=== PATIENT | male | born 1955 | race Caucasian/White ===

== ENCOUNTER 2023-08-20 14:25 | Outpatient (AMB) | payer OTHER, SELFPAY ==
--- NOTE | 2023-08-20 14:40 | A.OFFVIS_ITS ---
Intake Vital Signs 3 08/20/23 14:43 Height 5 ft 10 in Weight 271 lb BMI 38.9 BP 142/76 H Blood Pressure Location Rt brachial Position Sitting Pulse 87 Pulse Source Pulse Oximeter Pulse Oximetry (%) 95 Oxygen Delivery Method Room Air Intake Visit Reasons: COPD Prosthetic Technician Required: No Assistant To The Director: Assistant To The Director offered & declined Accompanied by: Self / Same As Patient Allergies doxycycline Allergy (Severe, Verified 08/20/23 15:11) Rash Penicillins Allergy (Severe, Verified 08/20/23 15:11) rash bee stings Allergy (Severe, Uncoded 08/20/23 15:11) Anaphylaxis Medication List - Last Reconciled 08/20/23 by Nuvia Hart LPN albuterol sulfate 0.63 mg inhalation Q6H amlodipine 10 mg PO DAILY cetirizine (All Day Allergy (cetirizine)) 10 mg PO DAILY PRN elderberry fruit mg PO DAILY fluticasone propion-salmeterol 100-50 mcg/dose 1 inh inhalation Q12H levothyroxine 150 mcg PO DAILY omeprazole 20 mg PO DAILY HPI COPD 2 HPI0 Details Jim is a pleasant 68 year old male, former smoker with 50 pack year history, quit 4-5 years ago, with underlying COPD, PARKER on CPAP, HTN, SVT s/p ablation 2020, and h/o provoked DVT on ASA. Patient reports progressively worsening dyspnea on moderate exertion with associated wheezing. He has been suboptimally controlled on Duoneb, 2-3 times per day and was started on Wixela a few weeks ago after recent exacerbation. He was also placed on antibiotics and prednisone x 5 days. He notes complete resolution of symptoms and improvements in dyspnea/wheezing after initiation of Wixela. He had a chest CT in March, full report below. Referral states that he had PFTs performed in 2019, report not available. He denies any occupational exposures, although was in the for a short period of time. He reports seasonal allergies which he uses zyrtec with good effect. He has a cat. He reports mother with history of respiratory conditions, otherwise no pertinent family history. [facility] Social History (Updated 08/20/23 @ 15:13 by Nuvia Hart LPN) Patient Tobacco Use Status: Former Tobacco user Tobacco use type: Cigarette Cigarette Packs Per Day: 1 Years Smoked: 50 quit 2019 Review of Systems Const Denies chills, Denies excessive sweating, Denies fever(s), Denies headache(s) and Denies night sweats Eyes Denies dry eyes, Denies irritation and Denies itchy eyes ENT Reports Normal hearing present, Denies headache(s), Denies nasal congestion, Denies nasal discharge, Denies post nasal drip and Denies sore throat Card Denies chest pain, Denies chest pain at rest, Denies chest pain with activity, Denies claudication, Reports dyspnea on exertion, Denies orthopnea and Denies paroxysmal nocturnal dyspnea Resp Denies chest congestion, Denies excessive phlegm production, Denies pain on inspiration, Denies pain with cough, Reports dyspnea on exertion and Denies stridor Musc Denies myalgias Neuro Reports Normal hearing present and Denies headache(s) Endo Denies excessive sweating Marcio/Lymph Denies lymphadenopathy Aller/Immun Denies itchy eyes and Denies seasonal rhinorrhea Physical Exam Vital Signs: Last Vital Signs Pulse 87 08/20/23 14:43 BP 142/76 H 08/20/23 14:43 Pulse Ox 95 08/20/23 14:43 Oxygen Delivery Method Room Air 08/20/23 14:43 BMI result Body Mass Index 38.9 Const General: cooperative, healthy appearing, comfortable, no acute distress, well developed and alert Nutritional Appearance: obese Orientation/consciousness: patient oriented x3 Limitations: no limitations HEENT Head: Yes normal to inspection, Yes normocephalic and Yes atraumatic Ears: hearing grossly normal bilaterally and external ears normal Eyes General: appearance normal, both eyes and all related structures Eyelids: Yes eyelids normal Sclerae: sclerae normal EOM: EOMs intact bilaterally Neck Neck: Yes normal visual inspection and Yes no lymphadenopathy Lymphatic: no lymphadenopathy noted Chest Chest palpation & inspection: normal inspection of the chest Resp Effort & Inspection: normal respiratory effort, able to speak in complete sentences, no audible wheezes, no cough, no stridor, not tachypneic, no tripod positioning and no use of accessory muscles Auscultation: clear to auscultation bilaterally Cardio Jugular venous distension: no JVD Rate: regular rate Rhythm: regular rhythm Skin Other: warm, dry General skin exam: no rashes or lesions noted Neuro General: patient oriented x3 Cranial nerves: Yes Normal hearing present Cognition (Neuro): normal cognition Gait exam (Neuro): Normal gait present Extrem General: Yes normal to inspection and Yes capillary refill normal Psych Appearance: grossly normal and well kempt Speech and movement: Normal speech and movement present and Clear speech present Affect: normal affect Attitude: cooperative Thought process: Normal thought process present Thought content: Normal thought content present Insight: Good insight present (Psych) Judgement: Good judgement present (Psych) Results Reviewed Results Reviewed: Assessment & Plan Assessment & Plan (1) COPD (chronic obstructive pulmonary disease): Code(s): J44.9 - Chronic obstructive pulmonary disease, unspecified (2) Personal history of tobacco use: Code(s): Z87.891 - Personal history of nicotine dependence Plan Jim's symptoms are likely related to COPD, unclear severity. He reports recent PFT was performed this year, although his referral notes his last was from 2019. Will attempt to obtain, if not recent, then send for updated PFT. Advised to continue on Wixela, as this was recently initiated and he reports some improvements. If not significantly changed, will consider Trelegy. Reviewed inhaler technique and importance of good oral hygiene. Reviewed chest CT report from March 2023 which stated no concerning pulmonary nodules. Will send for chest CT in one year. All questions were answered and patient is in agreement of plan. Will follow up after PFT to review results and response to Wixela, or sooner if needed. Orders: Orders 2 CT chest wo IV con 8 Months J44.9 - Chronic obstructive pulmonary disease, unspecified, Z87.891 - Personal history of nicotine dependence Coding Level of Care Code New Pt Level 4 (61457) Diagnoses COPD (chronic obstructive pulmonary disease) J44.9 Personal history of tobacco use Z87.891
[2023-08-20 14:43] VITALS: BP 142/76; PULSE 87; O2SAT 95; BMI 38.9
== END 2023-08-20 15:39 | disposition home or self-care (01) ==
PROVIDERS: PCP Nurse Practitioner Family; Referring Provider Nurse Practitioner Family; Visit Provider Nurse Practitioner Family
DX: J44.9 Chronic obstructive pulmonary disease, unspecified (principal); Z87.891 Personal history of nicotine dependence
CPT/HCPCS: 99204

== ENCOUNTER → 2023-08-20 14:25 | Outpatient (BNVA) | payer OTHER, SELFPAY | PROVIDERS: PCP Nurse Practitioner Family; Referring Provider Nurse Practitioner Family; Visit Provider Nurse Practitioner Family | DX: J44.9 Chronic obstructive pulmonary disease, unspecified (principal); Z87.891 Personal history of nicotine dependence | CPT/HCPCS: 99202 ==

== ENCOUNTER → 2023-10-08 14:13 | Outpatient (BNVA) | payer OTHER, SELFPAY | PROVIDERS: PCP Nurse Practitioner Family; Visit Provider Nurse Practitioner Family | DX: J44.9 Chronic obstructive pulmonary disease, unspecified (principal); Z87.891 Personal history of nicotine dependence | CPT/HCPCS: 94618; 99212 ==

== ENCOUNTER 2023-10-08 14:18 | Outpatient (AMB) | payer OTHER, SELFPAY ==
--- NOTE | 2023-10-08 10:01 | MHC.OFFVIS ---
Intake Vital Signs 10/08/23 14:22 Height 5 ft 10 in Weight 266 lb BMI 38.2 BP 132/68 Blood Pressure Location Rt brachial Position Sitting Respiration 14 Pulse Source Pulse Oximeter Pulse Oximetry (%) 92 Oxygen Delivery Method Room Air Intake Visit Reasons: COPD: 7 week f/u Allergies doxycycline Allergy (Severe, Verified 10/08/23 14:26) Rash Penicillins Allergy (Severe, Verified 10/08/23 14:26) rash bee stings Allergy (Severe, Uncoded 10/08/23 14:26) Anaphylaxis Medication List - Last Reconciled 10/08/23 by Katelin Jang, EXPERIMENTAL TECHNICIAN albuterol sulfate 0.63 mg inhalation Q6H amlodipine 10 mg PO DAILY cetirizine (All Day Allergy (cetirizine)) 10 mg PO DAILY PRN elderberry fruit mg PO DAILY fluticasone propion-salmeterol 100-50 mcg/dose 1 inh inhalation Q12H levothyroxine 150 mcg PO DAILY omeprazole 20 mg PO DAILY HPI COPD: 7 week f/u HPI Details Jim is a pleasant 68 year old male, former smoker with 50 pack year history, quit 4-5 years ago, with underlying COPD, PARKER on CPAP, HTN, SVT s/p ablation 2020, and h/o provoked DVT on ASA. Patient reports progressively worsening dyspnea on moderate exertion with associated wheezing. He has been suboptimally controlled on albuterol neb, 2-3 times per day and was started on Wixela shortly before the last visit. He reports progressively worsening dyspnea with associated wheezing and dry cough. Of note, he does report orthopnea and BLE. Denies PND. He was previously followed by cardiology, last echo 2020 however was reportedly told he no longer needs to be followed. [facility] Social History (Updated 08/20/23 @ 15:13 by Nuvia Hart LPN) Patient Tobacco Use Status: Former Tobacco user Tobacco use type: Cigarette Cigarette Packs Per Day: 1 Years Smoked: 50 quit 2019 Review of Systems Const Denies chills, Denies excessive sweating, Denies fever(s), Denies headache(s) and Denies night sweats Eyes Denies dry eyes, Denies irritation and Denies itchy eyes ENT Reports Normal hearing present and Denies headache(s) Card Denies chest pain, Denies chest pain at rest, Denies chest pain with activity, Denies claudication, Reports dyspnea on exertion, Denies orthopnea and Denies paroxysmal nocturnal dyspnea Resp Denies chest congestion, Denies excessive phlegm production, Denies pain on inspiration, Denies pain with cough, Reports dyspnea on exertion and Denies stridor Musc Denies myalgias Neuro Reports Normal hearing present and Denies headache(s) Endo Denies excessive sweating Marcio/Lymph Denies lymphadenopathy Aller/Immun Denies itchy eyes and Denies seasonal rhinorrhea Physical Exam Vital Signs: Last Vital Signs Resp 14 10/08/23 14:22 BP 132/68 10/08/23 14:22 Pulse Ox 92 10/08/23 14:22 Oxygen Delivery Method Room Air 10/08/23 14:22 BMI result Body Mass Index 38.2 Const General: cooperative, healthy appearing, comfortable, no acute distress, well developed and alert Nutritional Appearance: obese Orientation/consciousness: patient oriented x3 Limitations: no limitations HEENT Head: Yes normal to inspection, Yes normocephalic and Yes atraumatic Ears: hearing grossly normal bilaterally and external ears normal Eyes General: appearance normal, both eyes and all related structures Eyelids: Yes eyelids normal Sclerae: sclerae normal EOM: EOMs intact bilaterally Neck Neck: Yes normal visual inspection and Yes no lymphadenopathy Lymphatic: no lymphadenopathy noted Chest Chest palpation & inspection: normal inspection of the chest Resp Effort & Inspection: normal respiratory effort, able to speak in complete sentences, no audible wheezes, no cough, no stridor, not tachypneic, no tripod positioning and no use of accessory muscles Auscultation: clear to auscultation bilaterally Cardio Jugular venous distension: no JVD Rate: regular rate Rhythm: regular rhythm Skin Other: warm, dry General skin exam: no rashes or lesions noted Neuro General: patient oriented x3 Cranial nerves: Yes Normal hearing present Cognition (Neuro): normal cognition Gait exam (Neuro): Normal gait present Extrem Other: BLE 1+ pitting edema General: Yes normal to inspection and Yes capillary refill normal Psych Appearance: grossly normal and well kempt Speech and movement: Normal speech and movement present and Clear speech present Affect: normal affect Attitude: cooperative Thought process: Normal thought process present Thought content: Normal thought content present Insight: Good insight present (Psych) Judgement: Good judgement present (Psych) Office Procedures 6 Minute Walk Time:: 14:15 SPO2 % at rest: 94 Pulse at rest: 80 SPO2 % during excercise: 96 Pulse during excercise: 122 SPO2 % after excercise: 93 Pulse after excercise: 112 Distance in yards walked: 400 Caridad Score: 8 Performance Observations:: Pt ambulated on level ground on R/A without assistance, patient walked for 2 minutes requested break do to increased RR 32, and fatigue, resumed ambulation after 40 seconds, O2 sats stable throughout the ambulation, no supplemental O2 required for exertion at this time. [id number] - 6 Minute Walk Assessment & Plan Assessment & Plan (1) COPD (chronic obstructive pulmonary disease): Code(s): J44.9 - Chronic obstructive pulmonary disease, unspecified (2) Personal history of tobacco use: Code(s): Z87.891 - Personal history of nicotine dependence Plan Jim's symptoms are likely related to COPD as well as cardiac contribution. Will obtain updated PFT, as prior was from 2020. Will increase wixela and add duoneb, as [facility] combination [facility] formul[facility] . We did discuss possibly sending Trelegy through his other insurance. 6MWT performed and patient does not qualify for supplemental oxygen at this time. During the 6MWT he did become tachycardic with exertion into the 120s. Advised patient to reestablish care with cardiology. All questions were answered and patient is in agreement of plan. Will follow up after PFT to review results and response to increased Wixela as well as duoneb, or sooner if needed. Orders: Orders PFT pulmonary function test 10/08/23 J44.9 - Chronic obstructive pulmonary disease, unspecified Medications: New ipratropium-albuterol 0.5 mg-3 mg(2.5 mg base)/3 mL 3 mL inhalation BID PRN 180 mL 3RF wheezing fluticasone propion-salmeterol 250-50 mcg/dose (Wixela Inhub) 1 inh inhalation Q12H 60 ea 6RF Coding Level of Care Code Est Pt Level 4 (67414) Diagnoses COPD (chronic obstructive pulmonary disease) J44.9 Personal history of tobacco use Z87.891 CPT Codes Coding ([id number])
[2023-10-08 14:22] VITALS: BP 132/68; RESP 14; O2SAT 92; BMI 38.2
[2023-10-08 14:45] VITALS: PULSE 80; O2SAT 94
== END 2023-10-08 15:03 | disposition home or self-care (01) ==
PROVIDERS: PCP Nurse Practitioner Family; Referring Provider Nurse Practitioner Family; Visit Provider Nurse Practitioner Family
DX: J44.9 Chronic obstructive pulmonary disease, unspecified (principal); Z87.891 Personal history of nicotine dependence
CPT/HCPCS: 94618; 99214

== ENCOUNTER 2023-11-19 09:53 | Outpatient (REF) | payer OTHER, SELFPAY ==
[2023-11-19 09:42] VITALS: PULSE 70; RESP 16; O2SAT 96
--- NOTE | 2023-11-19 15:36 | PFT_ITS ---
Flows: FEV1: 75 % of predicted at 2.46 L FVC: 76 % of predicted at 3.27 L FEV1/FVC: 75 % Bronchodilator response: Present Volumes: Total lung capacity: 87 % of predicted at 6.23 L Residual volume: 93 % of predicted at 2.30 L Slow vital capacity: 84 % of predicted at 3.93 L Expiratory reserve volume: 74 % of predicted at 0.93 L Diffusion capacity: Mildly decreased. Impression: No obstructive or restrictive ventilatory defect. Positive bronchodilator response. Decreased diffusion capacity suggests emphysema. MTDD
== END 2023-11-19 09:54 | disposition home or self-care (01) ==
LOC: HO.RESP 09:53
PROVIDERS: PCP Nurse Practitioner Family; Visit Provider Nurse Practitioner Family
DX: J44.9 Chronic obstructive pulmonary disease, unspecified (principal)
CPT/HCPCS: 94010; 94640; 94727; 94729

== ENCOUNTER → 2023-11-19 15:36 | Outpatient (BNV) | payer OTHER, SELFPAY | PROVIDERS: PCP Nurse Practitioner Family; Visit Provider Internal Medicine Pulmonary Disease | DX: J44.9 Chronic obstructive pulmonary disease, unspecified (principal) | CPT/HCPCS: 94060; 94727; 94729 ==

== ENCOUNTER 2023-11-24 13:45 | Outpatient (AMB) | payer OTHER, SELFPAY ==
[2023-11-24 13:58] VITALS: BP 130/70; PULSE 86; O2SAT 96; BMI 36.3
--- NOTE | 2023-11-24 13:58 | MHC.OFFVIS ---
Intake Vital Signs 11/24/23 13:58 Height 5 ft 10 in Weight 253 lb BMI 36.3 BP 130/70 Blood Pressure Location Lt brachial Position Sitting Pulse 86 Pulse Source Pulse Oximeter Pulse Oximetry (%) 96 Oxygen Delivery Method Room Air Intake Visit Reasons: copd: 2 month f/u Forensic Materials Engineer Required: No Roving Department Supervisor: Roving Department Supervisor offered & declined Accompanied by: Self / Same As Patient Allergies doxycycline Allergy (Severe, Verified 11/24/23 14:04) Rash Penicillins Allergy (Severe, Verified 11/24/23 14:04) rash bee stings Allergy (Severe, Uncoded 11/24/23 14:04) Anaphylaxis Medication List - Last Reconciled 11/24/23 by Nuvia Hart LPN albuterol sulfate 0.63 mg inhalation Q6H amlodipine 10 mg PO DAILY aspirin 325 mg PO DAILY buspirone 20 mg PO BID cetirizine (All Day Allergy (cetirizine)) 10 mg PO DAILY PRN elderberry fruit mg PO DAILY fluticasone propion-salmeterol 250-50 mcg/dose (Wixela Inhub) 1 inh inhalation Q12H ipratropium-albuterol 0.5 mg-3 mg(2.5 mg base)/3 mL 3 mL inhalation BID 30 days levothyroxine 150 mcg PO DAILY omeprazole 20 mg PO DAILY HPI copd: 2 month f/u HPI Details Jim is a pleasant 68 year old male, former smoker with 50 pack year history, quit 4-5 years ago, with underlying COPD, PARKER on CPAP, HTN, SVT s/p ablation 2020, and h/o provoked DVT on ASA. At the last visit duoneb was added to Wixela. He is also working towards weight loss, losing 14 lbs since the last visit with diet changes. The combination of medication and weight loss, patient feels his symptoms are controlled. He was evaluated by cardiology yesterday, Dr. Hanson at [facility], and will be having a holter monitor. Today he presents to review PFT. [facility] Social History (Updated 11/24/23 @ 14:08 by Nuvia Hart LPN) Patient Tobacco Use Status: Former Tobacco user Tobacco use type: Cigarette Cigarette Packs Per Day: 1 Years Smoked: 50 quit 2019 Review of Systems Const Denies chills, Denies excessive sweating, Denies fever(s), Denies headache(s) and Denies night sweats Eyes Denies dry eyes, Denies irritation and Denies itchy eyes ENT Reports Normal hearing present and Denies headache(s) Card Denies chest pain, Denies chest pain at rest, Denies chest pain with activity, Denies claudication, Reports dyspnea on exertion, Denies orthopnea and Denies paroxysmal nocturnal dyspnea Resp Denies chest congestion, Denies excessive phlegm production, Denies pain on inspiration, Denies pain with cough, Reports dyspnea on exertion and Denies stridor Musc Denies myalgias Neuro Reports Normal hearing present and Denies headache(s) Endo Denies excessive sweating Marcio/Lymph Denies lymphadenopathy Aller/Immun Denies itchy eyes and Denies seasonal rhinorrhea Physical Exam Vital Signs: Last Vital Signs Pulse 86 11/24/23 13:58 BP 130/70 11/24/23 13:58 Pulse Ox 96 11/24/23 13:58 Oxygen Delivery Method Room Air 11/24/23 13:58 BMI result Body Mass Index 36.3 Const General: cooperative, healthy appearing, comfortable, no acute distress, well developed and alert Nutritional Appearance: obese Orientation/consciousness: patient oriented x3 Limitations: no limitations HEENT Head: Yes normal to inspection, Yes normocephalic and Yes atraumatic Ears: hearing grossly normal bilaterally and external ears normal Eyes General: appearance normal, both eyes and all related structures Eyelids: Yes eyelids normal Sclerae: sclerae normal EOM: EOMs intact bilaterally Neck Neck: Yes normal visual inspection and Yes no lymphadenopathy Lymphatic: no lymphadenopathy noted Chest Chest palpation & inspection: normal inspection of the chest Resp Effort & Inspection: normal respiratory effort, able to speak in complete sentences, no audible wheezes, no cough, no stridor, not tachypneic, no tripod positioning and no use of accessory muscles Auscultation: clear to auscultation bilaterally Cardio Jugular venous distension: no JVD Rate: regular rate Rhythm: regular rhythm Skin Other: warm, dry General skin exam: no rashes or lesions noted Neuro General: patient oriented x3 Cranial nerves: Yes Normal hearing present Cognition (Neuro): normal cognition Gait exam (Neuro): Normal gait present Extrem Other: BLE 1+ pitting edema General: Yes normal to inspection and Yes capillary refill normal Psych Appearance: grossly normal and well kempt Speech and movement: Normal speech and movement present and Clear speech present Affect: normal affect Attitude: cooperative Thought process: Normal thought process present Thought content: Normal thought content present Insight: Good insight present (Psych) Judgement: Good judgement present (Psych) Assessment & Plan Assessment & Plan (1) COPD (chronic obstructive pulmonary disease): Code(s): J44.9 - Chronic obstructive pulmonary disease, unspecified (2) Personal history of tobacco use: Code(s): Z87.891 - Personal history of nicotine dependence Plan Reviewed PFT which did not reveal any obstructive or restrictive ventilatory defect. There was a positive bronchodilator response. Decreased diffusion capacity suggests emphysema. Will send for chest CT to evaluate, prior CT report from 04/14 did not note any emphysema. Patient feels with weight loss and current regimen, symptoms are controlled. Advised to continue current regimen. Prior note from cardiology mentioned sending for updated echo, as last was 2020, patient will reach out to cardiology to discuss. All questions were answered and patient is in agreement of plan. Will follow up in 3-6 months or sooner if needed. Coding Level of Care Code Est Pt Level 4 (37154) Diagnoses COPD (chronic obstructive pulmonary disease) J44.9 Personal history of tobacco use Z87.891
== END 2023-11-24 14:41 | disposition home or self-care (01) ==
PROVIDERS: PCP Nurse Practitioner Family; Visit Provider Nurse Practitioner Family
DX: J44.9 Chronic obstructive pulmonary disease, unspecified (principal); Z87.891 Personal history of nicotine dependence
CPT/HCPCS: 99214

== ENCOUNTER → 2023-11-24 13:45 | Outpatient (BNVA) | payer OTHER, SELFPAY | PROVIDERS: PCP Nurse Practitioner Family; Visit Provider Nurse Practitioner Family | DX: J44.9 Chronic obstructive pulmonary disease, unspecified (principal); G47.33 Obstructive sleep apnea (adult) (pediatric); Z99.89 Dependence on other enabling machines and devices; Z87.891 Personal history of nicotine dependence | CPT/HCPCS: 99212 ==

== ENCOUNTER 2024-01-04 08:46 | Outpatient (AMB) | payer OTHER, SELFPAY ==
--- NOTE | 2024-01-04 08:50 | A.OFFVIS_ITS ---
Vital Signs 01/04/24 08:51 Height 5 ft 10 in Weight 260 lb 8 oz BMI 37.4 BP 130/88 Blood Pressure Location Lt brachial Position Sitting Pulse 71 Pulse Source Pulse Oximeter Pulse Oximetry (%) 95 Oxygen Delivery Method Room Air Intake Visit Reasons: SOB, dry tight cough x 1 week Allergies doxycycline Allergy (Severe, Verified 01/04/24 08:56) Rash Penicillins Allergy (Severe, Verified 01/04/24 08:56) rash bee stings Allergy (Severe, Uncoded 01/04/24 08:56) Anaphylaxis HPI HPI SOB, dry tight cough x 1 week: Details: Jim is a pleasant 68 year old male, former smoker with 50 pack year history, quit 4-5 years ago, with underlying COPD, PARKER on CPAP, HTN, SVT s/p ablation 2020, and h/o provoked DVT on ASA. He reports suboptimal control on Wixela, duoneb and albuterol MDI. Today he presents for an acute visit. He reports worsening dyspnea with minimal exertion, increased wheezing, chest tightness, right sided pleuritic pain and difficulty expectorating for the past week. He has been using duoneb TID with minimal effect. He denies any fevers, chills, or sick contacts. [facility] Social History Patient Tobacco Use Status: Former Tobacco user Tobacco use type: Cigarette Cigarette Packs Per Day: 1 Years Smoked: 50 quit 2019 Review of Systems Const Denies chills, Denies excessive sweating, Denies fever(s), Denies headache(s) and Denies night sweats Eyes Denies dry eyes, Denies irritation and Denies itchy eyes ENT Reports Normal hearing present, Denies headache(s), Denies nasal congestion, Denies nasal discharge, Denies post nasal drip and Denies sore throat Card Denies chest pain, Denies chest pain at rest, Denies chest pain with activity, Denies claudication, Denies leg edema, Denies orthopnea and Denies paroxysmal nocturnal dyspnea Resp Denies excessive phlegm production and Denies stridor Musc Denies myalgias Neuro Reports Normal hearing present and Denies headache(s) Endo Denies excessive sweating Marcio/Lymph Denies lymphadenopathy Aller/Immun Denies itchy eyes and Denies seasonal rhinorrhea Physical Exam Vital Signs: Last Vital Signs Pulse 71 01/04/24 08:51 BP 130/88 01/04/24 08:51 Pulse Ox 95 01/04/24 08:51 Oxygen Delivery Method Room Air 01/04/24 08:51 BMI result Body Mass Index 37.4 Const General: cooperative, no acute distress, well developed and alert Nutritional Appearance: obese Orientation/consciousness: patient oriented x3 Limitations: no limitations HEENT Head: Yes normal to inspection, Yes normocephalic and Yes atraumatic Ears: hearing grossly normal bilaterally and external ears normal Eyes General: appearance normal, both eyes and all related structures Eyelids: Yes eyelids normal Sclerae: sclerae normal EOM: EOMs intact bilaterally Neck Neck: Yes normal visual inspection and Yes no lymphadenopathy Lymphatic: no lymphadenopathy noted Chest Chest palpation & inspection: normal inspection of the chest Resp Other: RLL inspiratory crackles Effort & Inspection: normal respiratory effort, able to speak in complete sentences, no audible wheezes, no cough, no stridor, not tachypneic, no tripod positioning and no use of accessory muscles Cardio Jugular venous distension: no JVD Rate: regular rate Rhythm: regular rhythm Skin Other: warm, dry General skin exam: no rashes or lesions noted Neuro General: patient oriented x3 Cranial nerves: Yes Normal hearing present Cognition (Neuro): normal cognition Gait exam (Neuro): Normal gait present Extrem General: Yes normal to inspection, Yes capillary refill normal, Yes no clubbing, cyanosis or edema and Yes no pedal edema Psych Appearance: grossly normal and well kempt Speech and movement: Normal speech and movement present and Clear speech present Affect: normal affect Attitude: cooperative Thought process: Normal thought process present Thought content: Normal thought content present Insight: Good insight present (Psych) Judgement: Good judgement present (Psych) Assessment & Plan Assessment & Plan (1) COPD (chronic obstructive pulmonary disease): Code(s): J44.9 - Chronic obstructive pulmonary disease, unspecified Category: Medical Plan Will treat bronchitic symptoms with azithromycin and send for CXR to rule out pneumonia. If pneumonia then will adjust medication regimen. Patient with suboptimal control on Wixela, duoneb and albuterol MDI, will switch to Trelegy. All questions were answered and patient is in agreement of plan. Will follow up for regularly scheduled appointment. Orders: Orders XR chest 2V Today R05.9 - Cough, unspecified Medications: New vdzqsvqapnq-taqazfhhk-efdsbhqy 200-62.5-25 mcg (Trelegy Ellipta) 1 inh inhalation DAILY 60 ea 6RF copd azithromycin For 250 mg dose pack: take 500 mg today (day 1), then 250 mg for 4 days (days 2-5) PO 6 tabs 0RF albuterol sulfate 90 mcg/actuation 2 puffs inhalation Q4-6H PRN 8.5 grams 6RF shortness of breath or wheezing Refilled ipratropium-albuterol 0.5 mg-3 mg(2.5 mg base)/3 mL 3 mL inhalation BID 180 mL 3RF 30 days J44.9 - Chronic obstructive pulmonary disease, unspecified Coding Level of Care Code Est Pt Level 3 (17192) Diagnoses COPD (chronic obstructive pulmonary disease) J44.9
[2024-01-04 08:51] VITALS: BP 130/88; PULSE 71; O2SAT 95; BMI 37.4
== END 2024-01-04 09:15 | disposition home or self-care (01) ==
PROVIDERS: PCP Nurse Practitioner Family; Visit Provider Nurse Practitioner Family
DX: J44.9 Chronic obstructive pulmonary disease, unspecified (principal)
CPT/HCPCS: 99213

== ENCOUNTER → 2024-01-04 08:46 | Outpatient (BNVA) | payer OTHER, SELFPAY | PROVIDERS: PCP Nurse Practitioner Family; Visit Provider Nurse Practitioner Family | DX: J44.9 Chronic obstructive pulmonary disease, unspecified (principal); Z79.899 Other long term (current) drug therapy | CPT/HCPCS: 99212 ==

== ENCOUNTER 2024-04-14 15:03 | Outpatient (REF) | payer OTHER, SELFPAY ==
--- NOTE | ~2024-04-14 | CT_ITS ---
EXAMINATION: CT CHEST WITHOUT CONTRAST CLINICAL INFORMATION: COPD COMPARISON: None available. TECHNIQUE: Multidetector volumetric CT imaging of the chest was done. Axial MIP volume rendering provided. Sagittal and coronal reformatted images were obtained. This CT examination was performed using dose optimization techniques as appropriate, variously including the following: *Automated exposure control *Adjustment of mA and/or kV according to patient size (this includes techniques or standardized protocols for targeted exams where dose is matched to indication/reason for exam; i.e. extremities or head) *Use of iterative reconstruction technique DLP: 273 mGy-cm FINDINGS: LUNGS: Left lower lobe 8 mm nodule (7:128). Central airways are patent. PLEURA: No pleural effusion. MEDIASTINUM: No cardiomegaly. Aorta and pulmonary artery are normal in caliber. No mediastinal adenopathy. Lack of IV contrast limits evaluation for hilar adenopathy. CORONARY ARTERY CALCIFICATION: No coronary artery calcification appreciated. CHEST WALL/AXILLA: No axillary or internal mammary lymphadenopathy. UPPER ABDOMEN: Status post cholecystectomy. OSSEOUS STRUCTURES: Degenerative changes of the spine. CT/CT chest wo IV con IMPRESSION: Left lower lobe 8 mm nodule. According to the UPDATED 2017 Fleischner Society recommendations, the advised followup imaging for a single solid nodule measuring 8 mm or greater is: Consider CT, PET/CT, or tissue sampling at 3 months. Electronically signed by: Marni Rose MD 05/16/2024 02:21 PM EDT
== END 2024-04-14 15:04 | disposition home or self-care (01) ==
LOC: HO.CT 15:03
PROVIDERS: PCP Nurse Practitioner Family; Visit Provider Nurse Practitioner Family
DX: J44.9 Chronic obstructive pulmonary disease, unspecified (principal); Z87.891 Personal history of nicotine dependence
CPT/HCPCS: 71250

== ENCOUNTER 2024-04-19 13:49 | Outpatient (AMB) | payer OTHER, SELFPAY ==
[2024-04-19 14:02] VITALS: BP 170/88; PULSE 85; O2SAT 92; BMI 39.3
--- NOTE | 2024-04-19 14:02 | A.OFFVIS_ITS ---
Vital Signs 04/19/24 14:02 Height 5 ft 10 in Weight 274 lb 2 oz BMI 39.3 BP 170/88 H Blood Pressure Location Rt brachial Position Sitting Pulse 85 Pulse Source Pulse Oximeter Pulse Oximetry (%) 92 Oxygen Delivery Method Room Air Intake Visit Reasons: COPD Allergies doxycycline Allergy (Severe, Verified 04/19/24 14:05) Rash Penicillins Allergy (Severe, Verified 04/19/24 14:05) rash bee stings Allergy (Severe, Uncoded 04/19/24 14:05) Anaphylaxis HPI HPI COPD: Details: Jim is a pleasant 68 year old male, former smoker with 50 pack year history, quit 4-5 years ago, with underlying COPD, PARKER on CPAP, HTN, SVT s/p ablation 2020, and h/o provoked DVT on ASA. At the last visit, he was treated with azithromycin for bronchitic symptoms with resolution of productive cough. He reported suboptimal control on Wixela, duoneb and albuterol MDI, he was switched to Trelegy. He reports moderate improvement in dyspnea however continues with intermittent wheezing and occasional dry cough. Of note, he has gained 15lbs over the last 3 months. He recently had evaluation with cardiology and was told to return in one year. He last had echo in 2020 and was supposed to have a repeat ordered, however this has reportedly not been ordered. Last echo revealed mild diastolic dysfunction. He denies orthopnea or BLE edema. Today he presents to review chest CT results. Unfortunately there is no official read from radiology. He denies any visits to urgent care or hospitalizations since the last visit. [facility] Social History Patient Tobacco Use Status: Former Tobacco user Tobacco use type: Cigarette Cigarette Packs Per Day: 1 Years Smoked: 50 quit 2019 Review of Systems Const Denies chills, Denies excessive sweating, Denies fever(s), Denies headache(s) and Denies night sweats Eyes Denies dry eyes, Denies irritation and Denies itchy eyes ENT Reports Normal hearing present, Denies headache(s), Denies nasal congestion, D enies nasal discharge, Denies post nasal drip and Denies sore throat Card Denies chest pain, Denies chest pain at rest, Denies chest pain with activity, Denies claudication, Denies leg edema, Denies orthopnea and Denies paroxysmal nocturnal dyspnea Resp Denies excessive phlegm production and Denies stridor Musc Denies myalgias Neuro Reports Normal hearing present and Denies headache(s) Endo Denies excessive sweating Marcio/Lymph Denies lymphadenopathy Aller/Immun Denies itchy eyes and Denies seasonal rhinorrhea Physical Exam Vital Signs: Last Vital Signs Pulse 85 04/19/24 14:02 BP 170/88 H 04/19/24 14:02 Pulse Ox 92 04/19/24 14:02 Oxygen Delivery Method Room Air 04/19/24 14:02 BMI result Body Mass Index 39.3 Const General: cooperative, no acute distress, well developed and alert Nutritional Appearance: obese Orientation/consciousness: patient oriented x3 Limitations: no limitations HEENT Head: Yes normal to inspection, Yes normocephalic and Yes atraumatic Ears: hearing grossly normal bilaterally and external ears normal Eyes General: appearance normal, both eyes and all related structures Eyelids: Yes eyelids normal Sclerae: sclerae normal EOM: EOMs intact bilaterally Neck Neck: Yes normal visual inspection and Yes no lymphadenopathy Lymphatic: no lymphadenopathy noted Chest Chest palpation & inspection: normal inspection of the chest Resp Effort & Inspection: normal respiratory effort, able to speak in complete sentences, no audible wheezes, no cough, no stridor, not tachypneic, no tripod positioning and no use of accessory muscles Auscultation: diminished lung sounds Cardio Jugular venous distension: no JVD Rate: regular rate Rhythm: regular rhythm Skin Other: warm, dry General skin exam: no rashes or lesions noted Neuro General: patient oriented x3 Cranial nerves: Yes Normal hearing present Cognition (Neuro): normal cognition Gait exam (Neuro): Normal gait present Extrem General: Yes normal to inspection, Yes capillary refill normal, Yes no clubbing, cyanosis or edema and Yes no pedal edema Psych Appearance: grossly normal and well kempt Speech and movement: Normal speech and movement present and Clear speech present Affect: normal affect Attitude: cooperative Thought process: Normal thought process present Thought content: Normal thought content present Insight: Good insight present (Psych) Judgement: Good judgement present (Psych) Assessment & Plan Assessment & Plan (1) COPD (chronic obstructive pulmonary disease): Code(s): J44.9 - Chronic obstructive pulmonary disease, unspecified Category: Medical (2) Personal history of tobacco use: Code(s): Z87.891 - Personal history of nicotine dependence Category: Social Hx (3) Cough: Code(s): R05.9 - Cough, unspecified Category: Medical (4) Dyspnea on minimal exertion: Code(s): R06.09 - Other forms of dyspnea Category: Medical Plan Advised to continue Trelegy and DuoNeb PRN. Will send for echo to assess for any cardiac component contributing to symptoms. Will call patient with chest CT results when available. Patient also with hypertension at this time, advised to follow up with PCP/cardiology to discuss. All questions were answered and patient is in agreement of plan. Will follow up to review echo results or sooner if needed. Orders: Orders CA echo transthoracic complete Today R06.09 - Other forms of dyspnea Coding Level of Care Code Est Pt Level 4 (67881) Diagnoses COPD (chronic obstructive pulmonary disease) J44.9 Personal history of tobacco use Z87.891 Cough R05.9 Dyspnea on minimal exertion R06.09
== END 2024-04-19 14:58 | disposition home or self-care (01) ==
PROVIDERS: PCP Nurse Practitioner Family; Visit Provider Nurse Practitioner Family
DX: J44.9 Chronic obstructive pulmonary disease, unspecified (principal); Z87.891 Personal history of nicotine dependence; R05.9 Cough, unspecified; R06.09 Other forms of dyspnea
CPT/HCPCS: 99214

== ENCOUNTER → 2024-04-19 13:49 | Outpatient (BNVA) | payer OTHER, SELFPAY | PROVIDERS: PCP Nurse Practitioner Family; Visit Provider Nurse Practitioner Family | DX: J44.9 Chronic obstructive pulmonary disease, unspecified (principal); G47.33 Obstructive sleep apnea (adult) (pediatric); R06.09 Other forms of dyspnea; Z99.89 Dependence on other enabling machines and devices; Z87.891 Personal history of nicotine dependence | CPT/HCPCS: 99212 ==

== ENCOUNTER → 2024-05-22 12:13 | Outpatient (REF) | payer OTHER, SELFPAY ==
--- NOTE | 2024-05-22 12:18 | CA_ITS ---
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 The visually estimated ejection fraction is between 60-65%. - There is moderately increased left ventricular wall thickness. - No obvious valvular pathology seen on this study. Findings Procedure Information Contrast agent, definity, is being given per protocol without apparent complications. Left Ventricle Normal left ventricular cavity size. There is moderately increased left ventricular wall thickness. The left ventricular systolic function is normal. The visually estimated ejection fraction is between 60-65%. Regional wall motion abnormalities can not be excluded due to suboptimal endocardial definition. Diastolic function is normal for age. Right Ventricle Normal right ventricular cavity size and systolic function. Atria Both atria are normal in size. Aortic Valve The aortic valve was not well visualized. There is no aortic valve stenosis. There is no aortic valve regurgitation. Mitral Valve The mitral valve was not well visualized. There is no mitral valve regurgitation. There is no mitral valve stenosis. Pulmonic Valve The pulmonic valve is likely normal. Tricuspid Valve There is mild tricuspid valve regurgitation. There is no evidence of pulmonary hypertension. Great Vessels The asc aorta is normal in size. Venous The inferior vena cava was not well visualized. The inferior vena cava is normal in size and collapses greater than 50% with inspiration. Pericardium/Pleural There is no evidence of pericardial effusion. Prior Study Comparison No prior study available for comparison. Recommendations, Care & Conclusions No obvious valvular pathology seen on this study. Measurements 2D Linear Measurements IVSd: 1.52 0.6-0.9/0.6-1.0 cm LVIDd: 4.20 3.9-5.3/4.2-5.9 cm LVIDd Index: 1.76 2.4-3.2/2.2-3.1 cm/m2 LVIDs: 2.82 2.0-3.6 cm LVPWd: 1.58 0.7-1.1 cm Ao Root: 3.30 2.1-3.5 cm LA Diam: 2.80 2.7-3.8/3.0-4.0 cm LAIDs Index: 1.17 1.5-2.3 cm/m2 LV Mass: 327.53 67-162/88-224 g LV Mass Index: 137.04 43-95/49-115 g/m2 LVOT Diam: 2.20 3.0+(-)1.3 cm 2D Systolic Function EF 4C: 77.50 >55% EF 2C: 65.50 >55% EF BiP: 72.50 >55% Mitral Valve MV Pk E: 0.42 MV PK A: 0.85 MV Decel Time: 174.00 E/A: 0.50 E'Lateral: 6.31 E'Medial: 7.62 E/E' Med: 5.50 E/E' Lat: 6.60 PHT: 51.00 MVA PHT: 4.31 Decel [place]: 2.38 Aortic Valve AoV Pk Lauro: 1.35 AoV Mn Lauro: 0.94 AoV VTI: 0.24 AoV Pk Grad: 7.00 Aov Mn Grad: 4.00 TYREL Cont.VTI: 2.34 LVOT LVOT Pk Lauro: 0.95 LVOT Mn Lauro: 0.64 LVOT VTI: 0.15 LVOT Pk Grad: 4.00 LVOT Mn Grad: 2.00 LVOT Diam: 2.20 LVOT Area: 3.80 Diastolic Function MV Pk E: 0.42 MV Pk A: 0.85 E/A: 0.50 E'Medial: 7.62 E/E' Med: 5.50 E' Laterial: 6.31 E/E' Lat: 6.60 Right Ventricle TAPSE (mm): 21.00 TVS' Lauro: 15.00 Tricuspid Valve TR Pk Lauro: 2.42 TR Pk Grad: 23.00 RA Press: 3.00 RVSP: 26.00 Great Vessels Aorta Ao Root-2D: 3.30 2.0-3.7 cm Ao Asc: 3.60 2.1-3.4 cm Pulmonary Valve PV Pk Lauro: 1.07 Peak PV Grad: 5.00 Updated in Other Vendor System with Status of Final [place] Muse MD electronically signed on 05/22/2024 3:25:26 PM with status of Final
== END ==
LOC: HO.CARD 12:13
PROVIDERS: PCP Nurse Practitioner Family; Visit Provider Nurse Practitioner Family
DX: R06.09 Other forms of dyspnea (principal)
CPT/HCPCS: 93306; Q9957

== ENCOUNTER → 2024-05-22 12:18 | Outpatient (BNV) | payer OTHER, SELFPAY | PROVIDERS: PCP Nurse Practitioner Family; Visit Provider Internal Medicine | DX: I36.1 Nonrheumatic tricuspid (valve) insufficiency (principal) | CPT/HCPCS: 93306 ==

== ENCOUNTER 2024-07-17 10:01 | Outpatient (REF) | payer OTHER, SELFPAY | END 2024-07-17 10:02 | disposition home or self-care (01) | LOC: HO.CT 10:01 | PROVIDERS: PCP Nurse Practitioner Family; Visit Provider Nurse Practitioner Family | DX: R91.1 Solitary pulmonary nodule (principal) | CPT/HCPCS: 71250 ==

== ENCOUNTER → 2024-07-17 10:03 | Outpatient (BNV) | payer OTHER, SELFPAY | PROVIDERS: PCP Nurse Practitioner Family; Visit Provider Radiology Diagnostic Radiology | DX: R91.1 Solitary pulmonary nodule (principal) | CPT/HCPCS: 71250 ==

== ENCOUNTER 2024-08-18 13:02 | Outpatient (AMB) | payer OTHER, SELFPAY ==
[2024-08-18 13:04] VITALS: BP 140/82; PULSE 77; O2SAT 94; BMI 40.9
--- NOTE | 2024-08-18 13:04 | MHC.OFFVIS ---
Vital Signs 08/18/24 13:04 Height 5 ft 10 in Weight 285 lb 2 oz BMI 40.9 BP 140/82 H Blood Pressure Location Rt brachial Position Sitting Pulse 77 Pulse Source Pulse Oximeter Pulse Oximetry (%) 94 Oxygen Delivery Method Room Air Intake Visit Reasons: COPD / CT FU Allergies doxycycline Allergy (Severe, Verified 08/18/24 13:06) Rash Penicillins Allergy (Severe, Verified 08/18/24 13:06) rash bee stings Allergy (Severe, Uncoded 08/18/24 13:06) Anaphylaxis HPI HPI COPD / CT FU: Details: Jim is a pleasant 69 year old male, former smoker with 50 pack year history, quit 4-5 years ago, with underlying COPD, PARKER on CPAP, HTN, SVT s/p ablation 2020, and h/o provoked DVT on ASA. He has been moderately controlled on Trelegy and albuterol MDI. He continues to report dyspnea on exertion which he attributes to weight. He has been making diet changes but has had difficulties increasing activity due to RLE discomfort, which [facility] However he also reports increased BLE edema with associated orthopnea. He is followed by cardiology and last echo revealed mild diastolic dysfunction. Today he reports over the last week has developed a productive cough with yellow sputum and increased wheezing. He denies fevers chils or sick contacts. Today he presents to review chest CT for LLL 8mm nodule that was noted on chest CT from 03/2024. [facility] Social History Patient Tobacco Use Status: Former Tobacco user Tobacco use type: Cigarette Cigarette Packs Per Day: 1 Years Smoked: 50 quit 2019 Review of Systems Const Denies chills, Denies excessive sweating, Denies fever(s), Denies headache(s) and Denies night sweats Eyes Denies dry eyes, Denies irritation and Denies itchy eyes ENT Reports Normal hearing present, Denies headache(s), Denies nasal congestion, Denies nasal discharge, Denies post nasal drip and Denies sore throat Card Denies chest pain, Denies chest pain at rest, Denies chest pain with activity, Denies claudication, Reports leg edema, Reports dyspnea on exertion, Reports orthopnea and Denies paroxysmal nocturnal dyspnea Resp Reports change in phlegm color, Reports chest congestion, Reports cough, Denies hemoptysis, Denies excessive phlegm production, Reports dyspnea on exertion, Denies stridor and Reports wheezing Musc Denies myalgias Neuro Reports Normal hearing present and Denies headache(s) Endo Denies excessive sweating Marcio/Lymph Denies lymphadenopathy Aller/Immun Denies itchy eyes, Denies seasonal rhinorrhea and Reports wheezing Physical Exam Vital Signs: Last Vital Signs Pulse 77 08/18/24 13:04 BP 140/82 H 08/18/24 13:04 Pulse Ox 94 08/18/24 13:04 Oxygen Delivery Method Room Air 08/18/24 13:04 BMI result Body Mass Index 40.9 Const General: cooperative, no acute distress, well developed and alert Nutritional Appearance: obese Orientation/consciousness: patient oriented x3 Limitations: no limitations HEENT Head: Yes normal to inspection, Yes normocephalic and Yes atraumatic Ears: hearing grossly normal bilaterally and external ears normal Eyes General: appearance normal, both eyes and all related structures Eyelids: Yes eyelids normal Sclerae: sclerae normal EOM: EOMs intact bilaterally Neck Neck: Yes normal visual inspection and Yes no lymphadenopathy Lymphatic: no lymphadenopathy noted Chest Chest palpation & inspection: normal inspection of the chest Resp Effort & Inspection: normal respiratory effort, able to speak in complete sentences, no audible wheezes, no cough, no stridor, not tachypneic, no tripod positioning and no use of accessory muscles Auscultation: diminished lung sounds Cardio Jugular venous distension: no JVD Rate: regular rate Rhythm: regular rhythm Skin Other: warm, dry General skin exam: no rashes or lesions noted Neuro General: patient oriented x3 Cranial nerves: Yes Normal hearing present Cognition (Neuro): normal cognition Gait exam (Neuro): Normal gait present Extrem Other: 2-3+ pitting edema BLE Psych Appearance: grossly normal and well kempt Speech and movement: Normal speech and movement present and Clear speech present Affect: normal affect Attitude: cooperative Thought process: Normal thought process present Thought content: Normal thought content present Insight: Good insight present (Psych) Judgement: Good judgement present (Psych) Assessment & Plan Assessment & Plan (1) COPD (chronic obstructive pulmonary disease): Code(s): J44.9 - Chronic obstructive pulmonary disease, unspecified Category: Medical (2) Personal history of tobacco use: Code(s): Z87.891 - Personal history of nicotine dependence Category: Social Hx (3) Cough: Code(s): R05.9 - Cough, unspecified Category: Medical (4) Dyspnea on minimal exertion: Code(s): R06.09 - Other forms of dyspnea Category: Medical Plan Will treat bronchitic symptoms with azithromycin. Patient will call if symptoms do not improve and seek emergent care if worsening. May have cardiac component contributing to increased dyspnea, with BLE pitting edema and worsening orthopnea. If dyspnea minimally changed with abx, will trial lasix x [address], not officially read by radiology but LLL nodule has appeared to have resolved. Will call patient with final read. All questions were answered and patient is in agreement of plan. Will have close follow up in 2-4 weeks or sooner if needed. Medications: New azithromycin For 250 mg dose pack: take 500 mg today (day 1), then 250 mg for 4 days (days 2-5) PO 6 tabs 0RF furosemide (Lasix) 20 mg PO DAILY 3 tabs 0RF Coding Level of Care Code Est Pt Level 4 (11738) Diagnoses COPD (chronic obstructive pulmonary disease) J44.9 Personal history of tobacco use Z87.891 Cough R05.9 Dyspnea on minimal exertion R06.09
--- OUTSIDE RECORDS SUMMARY | 2024-08-18 13:06 | XMS_ITS ---
Author Name [facility] [place] [facility] [place] Address [address] [place] [address] Care Team Providers Care Plastic Panel Installer Name Role Phone ALEXANDR YODER Primary Care Provider Unavailabl e Insurance Providers: All historical and current Section Date Range: From patient's date of to the date document was created. This section includes the names of all active insurance providers for the patient. Insurance Provider Type of Coverage Plan Name Start of Policy Coverage End of Policy Coverage Group Number Member ID Insurance Provider's Telephone Number Policy Gilletet's Name Patient's Relationship to Policy Gillette [facility] [facility] (WNR) MEDICARE ADVANTAGE HUMAN A [facility] Mar 23, 2023 [id number] Ezekiel WILKERSON PATIENT Selected Encounter This section includes the information on record at [place] for the Encounter. Date/Time Encounter Type Encounter Description Reason Provider Source Dec 17, 2023 01:30 PM MTMS BY LIZZ NATHAN [facility] - IND ICD-10-CM F32.A Depression, unspecified RAGUINDIN,JASP ER YOAN D E Encounter Template Text not used by [place] Assessments - Encounter Diagnoses This section includes the primary and secondary diagnoses documented for the Encounter. Date/Time Primary/Secondary Diagnosis Diagnosis Name Provider Source Dec 17, 2023 02:40 PM PRIMARY Depression, unspecified RAGUINDIN,JASP ER YOAN D [place] [facility] [place] [facility] Dec 17, 2023 02:40 PM SECONDARY Anxiety disorder, unspecified RAGUINDIN,JASP ER YOAN [facility] Plan of Treatment: Future Appointments (+ 6 months) and Future Tests (+/- 45 days) The Plan of Treatment section includes future care activities for the patient from [facility] [place] [facility] This section includes future appointments and future orders which are active, pending or scheduled. Future Appointments This section includes appointments that were scheduled to occur 6 months from the date of the Encounter, up to a maximum of 20 appointments. The data comes from all [place] treatment facilities. Appointment Date/Time Appointment Type Appointme nt Facility Name January 05, 2024 11:30 AM AMBULATORY - MEDICINE [facility] [facility] January 21, 2024 01:30 PM AMBULATORY - PSYCHIATRY [place] [facility] [place] [facility] Feb 16, 2024 01:30 PM AMBULATORY MEDICINE [facility] [place] [facility] Feb 18, 2024 03:00 PM AMBULATORY MEDICINE [facility] [place] [facility] Mar 03, 2024 01:30 PM [facility] [place] [facility] Apr 06, 2024 08:30 AM AMBULATORY - MEDICINE [facility] [place] [facility] Apr 19, 2024 02:15 PM AMBULATORY - MEDICINE [facility] [place] [facility] May 05, 2024 01:30 PM AMBULATORY - PSYCHIATRY [place] [facility] [place] [facility] Jun 13, 2024 09:30 AM AMBULATORY - MEDICINE [facility] Social History: Smoking Status (Most current) and Tobacco Use (All prior to encounter date) This section includes the most current, and the historical, smoking and tobacco- related health factors from the [place] facility where the Encounter took place. Current Smoking Status This section includes the most current smoking, or tobacco-related health factor, from the [place] facility where the Encounter took place. Date/Time Current Smoking Status Comment Artem shukla Apr 07, 2023 01:30 PM [facility]ACCO [facility] Tobacco Use History This section includes a history of the smoking, or tobacco-related health factors, that were collected on or before the date of the Encounter. The data comes from the [place] facility where the Encounter took place. Date/Time Smoking Status/Tobac co Use Comment Facility Apr 07, 2023 01:30 PM VA-TOBACCO QUIT 5 TO < 15 YRS [place] [facility] [place] [facility] May 07, 2022 09:30 AM VA-TOBACCO FORMER USER [facility] [place] [facility] May 07, 2022 09:30 AM VA-TOBACCO QUIT 1 TO < 5 YRS [facility] [place] [facility] May 15, 2021 08:45 AM VA-TOBACCO FORMER USER [place] [facility] [place] [facility] May 15, 2021 08:45 AM VA-TOBACCO QUIT 1 TO < 5 YRS [place] [facility] [place] [facility] Jun 04, 2020 10:30 AM VA-TOBACCO FORMER USER [place] [facility] [place] [facility] Jun 04, 2020 10:30 AM VA-TOBACCO QUIT < 1 YEAR [place] [facility] [place] [facility] May 23, 2019 09:36 AM VA-TOBACCO DOESNT USE WI 30 MIN WAKEUP [place] [facility] [place] [facility] May 23, 2019 09:36 AM VA-TOBACCO USE 30 YEARS OR MORE [place] [facility] [place] [facility] May 23, 2019 09:36 AM VA-TOBACCO USE ADVICE [place] [facility] [place] [facility] May 23, 2019 09:36 AM VA-TOBACCO USE 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 [place] [facility] [place] [facility] May 23, 2019 09:36 AM VA-TOBACCO USE MED NO [place] [facility] [place] [facility] May 23, 2019 09:36 AM VA-TOBACCO USER EVERY DAY [place] [facility] [place] [facility] Apr 21, 2018 01:18 PM CURRENT SMOKER 1/2 pk a week [place] [facility] [place] [facility] Apr 21, 2018 01:18 PM V1-PT DECLINES REF TO TOBACCO CESS PRGM [place] [facility] [place] [facility] Apr 21, 2018 01:18 PM V1-PT DECLINES TOB ACCO CESSATION MEDS [place] [facility] [place] [facility] Apr 21, 2018 01:18 PM V1-PT THINKING ABO UT QUIT TOBACCO USE [place] [facility] [place] [facility] Oct 18, 2017 02:19 PM V1-PT NOT INTEREST ED IN QUIT TOBACCO USE [place] [facility] [place] [facility] Oct 04, 2017 01:55 PM CURRENT SMOKER .5 packs a day [place] [facility] Advance Directives: All historical and current Section Date Range: From patient's date of to the date document was created. This section includes ALL of a patient's completed or amended [place] Advance and Rescinded Directives. The entries below indicate that a directive exists for the patient, but an actual copy is not included with this document. The data comes from all [place] facilities. Date Advance Directives Provider Source Feb 13, 2003 ADVANCE DIRECTIVE KAT OVIEDO [facility] Encounter Notes: All associated encounter notes This section contains the clinical notes associated to the Encounter. Date/Time Encounter Note(s) Provider Source Dec 17, 2023 01:34 PM PHARMACY MEDICATION MGT NOTE: LOCAL TITLE: CLINICAL PHARMACIST F/U NOTE STANDARD TITLE: PHARMACY MEDICATION MGT NOTE DATE OF NOTE: DEC 17, 2023@13:34 ENTRY DATE: DEC 17, 2023@13:34:26 AUTHOR: OLMAN AGUILAR COSIGNER: URGENCY: STATUS: COMPLETED Program: Clinical Pharmacy Provider/Medication Management Speciality: Mental Health ATTENDED BY: [X] Patient [ ] Spouse/Caregiver LENGTH OF SESSION: 30minutes -=-=-=-=-=-=-=-=-=-=-=-=-=-=- =-=-=-=-=-==-=-=-=-=-=-=-=-=- =-=-=-=-=-=-=-=-=-=-=- Name: ANDRZEJ WILKERSON : Mar ID: 68yo WHITE MALE -=-=-=-=-=-=-=-=-=-=-=-=-=-=- =-=-=-=-=-==-=-=-=-=-=-=-=-=- =-=-=-=-=-=Subjective- [place] was last seen on [id number] with the following pharmacotherapeutic plan: [X] No changes [ ] Discontinue: [ ] Initiate: [ ] Change the following: Treating Dx(s): Depression and Anxiety INTERIM HISTORY pt reports to be doing okay. reports having an increase in distressing dreams ~4-6x a week, occasional waking up in a sweat. explain that these dreams were related to him having fights with hid dad or siblings even though they're not here. has also occasionally found himself waking up and mumbling. endorse that these dreams have been effecting him negatively, and he has began isolating more unable to do activities that he had hoped to do once the weather became warmer, such as fishing. discussed trialing prazosin for these distressing dreams. medication education provided, to which the pt provided verbal understanding and agreed to the trial. -=-=-=-=-=-=-=-=-=-=-=-=-=-=- =-=-=-=-=-==-=-=-=-=-=-=-=-=- =-=-=-=-=-=-Objective- Mental Status Exam Appearance: [X] Unremarkable [X] Appropriate to season [ ] Neatly groomed [ ] Somewhat disheveled [ ] Other: Behavior Mood/Affect: [X] Appropriate [ ] Irritable [ ] Normal [ ] Euphoric [ ] Pleasant [ ] Provocative [ ] Bright [X] Depressed [ ] Anxious [ ] Frustrated [ ] Anxious [X] Frustrated [ ] Maintained good eye contact [ ] Restricted [ ] Flat [ ] Other: [ ] Subdued [ ] Unremarkable [ ] Responsive & Congruent w/mood Energy: [ ] Other: [X] Normal [ ] Excessive [ ] Lethargic [ ] Variable Sleep: [ ] Other: [ ] Normal [ ] Early awakening [ ] Sleep onset insomnia -N--Y- Orientation to: [X] Frequent disruption [ ][X] Person [ ][X] Place Speech: [ ][X] Time [X] Normal [ ] Rapid [ ] Loud [ ] Flat [ ] Slow [ ] Soft Stream of thought: [ ] Other: [X] Normal [ ] Confused [ ] Tangential [ ] Derailed Insight/Judgment: [ ] Vague [ ] Repetitive [X] Normal [ ] Impaired [ ] No evidence of thought disorder [ ] No overt psychosis Other cognitive problems: [ ] Denies Flashbacks [X] Cognition intact [ ] Denies AH/VH [X] Logical and Linear [ ] Obsessions [ ] Paranoid/Delusions [X] Memory sufficient for interview [ ] Hallucinations: [ ] None [ ] Visuospatial [ ] Flashbacks: [ ] Attention [ ] Judgment [ ] Other: [ ] Abstraction Active problems - Computerized Problem List is the source for the followin. Harmon esophagus 2. Colonoscopy normal 3. Degenerative disc disease 4. Depression 5. Sleep apnea 6. Supraventricular tachycardia 7. HTN - Hypertension ([facility] [id number]) 8. Anxiety disorder 9. H/O: gastric ulcer 10. Steatosis of liver 11. Partial tear, knee, anterior cruciate ligament 12. Bilateral knee pain 13. Chronic kidney disease stage 2 14. Ocular rosacea 15. Radioactive iodine-induced hypothyroidism 16. Tobacco use 17. Obesity 18. Patient requires hospitalization 19. History of surgery 20. Chronic obstructive lung disease 21. Unemployed 22. Obesity 23. H/O: Deep vein thrombosis 24. Adult screening status ALLERGIES: BEE STINGS, PENICILLIN, DOXYCYCLINE Active Outpatient Medications (including Supplies): Active Outpatient Medications Status 1) ALBUTEROL 3/IPRATROP 0.5MG/3ML INHL 3ML INHALE 1 ACTIVE AMPULE IN NEBULIZER TWICE DAILY NEEDED FOR WHEEZING 2) ALBUTEROL 90MCG (CFC-F) 200D ORAL INHL INHALE 2 PUFFS ACTIVE BY MOUTH EVERY 4 HOURS NEEDED 3) ALBUTEROL SO4 0.083% INHL 3ML INHALE 1 AMPULE IN ACTIVE NEBULIZER EVERY 6 HOURS NEEDED FOR BREATHING 4) ASPIRIN 325MG EC TAB TAKE ONE TABLET BY MOUTH ONCE ACTIVE DAILY TO PREVENT STROKE/HEART ATTACK 5) BUSPIRONE HCL 10MG TAB TAKE TWO TABLETS BY MOUTH ACTIVE TWICE DAILY FOR ANXIETY 6) CETIRIZINE HCL 10MG TAB TAKE ONE TABLET BY MOUTH ONCE ACTIVE DAILY FOR ALLERGIES 7) ESCITALOPRAM OXALATE 20MG TAB TAKE ONE TABLET BY ACTIVE MOUTH ONCE DAILY FOR MOOD/DEPRESSION 8) FLUTICAS 250/SALMETEROL 50 INHL DISK 60 INHALE 1 PUFF ACTIVE BY MOUTH EVERY 12 HOURS - RINSE MOUTH AFTER USE 9) LEVOTHYROXINE NA (SYNTHROID) 150MCG TAB TAKE ONE ACTIVE TABLET BY MOUTH EVERY MORNING 30 MINUTES BEFORE BREAKFAST FOR THYROID - TAKE ON AN EMPTY STOMACH WITH A FULL GLASS OF WATER 10) OMEPRAZOLE 20MG EC CAP TAKE ONE CAPSULE BY MOUTH ACTIVE EVERY MORNING 30 MINUTES BEFORE BREAKFAST 11) TRAZODONE HCL 50MG TAB TAKE ONE-HALF TABLET BY MOUTH ACTIVE AT BEDTIME NEEDED FOR SLEEP Active Non-VA Medications Status 1) Non-VA OTHER CAP/TAB BY MOUTH ACTIVE 12 Total Medications Past psychiatric medications include the following: [X] Per CPRS: - buspirone (2022-current) - citalopram ([id number]) - escitalopram (2022-current) - sertraline (2020) - trazodone () [ ] Per Patient: Vitals: Ht: 65 in [165.1 cm] (07/26/2023 14:01) Wt: 250 lb [113.40 kg] (12/14/2023 14:11) BMI: 41.7 BP: 138/82 (12/09/2023 14:31) HR: 94 (12/09/2023 14:31) Labs: CHEM 7 TREND LAB CUMULATIVE SELECTED Collection DT Spec GLUCOSE BUN CREATIN Sodium K+/Pot CL CO2 01/04/2023 14:12 SERUM 92 16 1.39 138 4.3 104 25 09/09/2022 14:59 SERUM 89 18 1.40 138 4.0 105 24 09/02/2022 14:20 SERUM 100 18 1.55 H 137 4.0 103 26 06/02/2022 09:49 SERUM 103 H 18 1.38 139 4.3 106 22 03/10/2022 13:46 SERUM 107 H 16 1.31 140 4.1 108 24 LIVER PANEL TREND Collection DT Spec AST ALT T BILI ALK SUNNY T. PROT ALBUMIN 01/04/2023 14:12 SERUM 17 25 0.9 90 7.0 4.2 09/02/2022 14:20 SERUM 19 28 0.7 107 7.4 4.2 06/02/2022 09:49 SERUM 22 29 comment 104 7.2 4.0 03/10/2022 13:46 SERUM 21 33 0.6 112 7.1 4.0 06/24/2021 11:25 SERUM 16 27 0.4 86 7.2 3.8 CBC TREND Collection DT Spec WBC RBC HGB HCT MCV MCH PLT 07/07/2023 15:15 BLOOD 8.24 4.79 14.7 44.5 92.9 30.7 238 01/04/2023 14:12 BLOOD 7.81 5.15 15.3 46.2 89.7 29.7 254 09/02/2022 14:20 BLOOD 8.06 5.20 15.5 47.1 90.6 29.8 274 06/02/2022 09:49 BLOOD 6.72 4.84 14.6 43.6 90.1 30.2 201 03/10/2022 13:46 BLOOD 8.45 4.78 14.3 43.6 91.2 29.9 248 LIPID PANEL TREND Collection DT Spec CHOL HDL CHO/HDL LDL-c TRIG 09/02/2022 14:20 SERUM 145 33 L 4.4 81 154 H 06/02/2022 09:49 SERUM 127 29 L 4.4 76 108 03/10/2022 13:46 SERUM 133 33 L 4.0 78 108 06/24/2021 11:25 SERUM 142 36 L 3.9 79 133 09/19/2019 15:37 SERUM 166 39 L 4.3 102 127 HEMOGLOBIN A1C TREND Collection DT Spec HGBA1c 01/04/2023 14:12 BLOOD 5.6 09/02/2022 14:20 BLOOD 5.8 H 06/02/2022 09:49 BLOOD 5.0 03/10/2022 13:46 BLOOD 5.7 H 06/24/2021 11:25 BLOOD 5.7 H EK QTc = 450ms, NSR Estimated CrCl (based on IBW): ~50mL/min -=-=-=-=-=-=-=-=-=-=-=-=-=-=- =-=-=-=-=-==-=-=-=-=-=-=-=-=- =-=-=-=-=-=-=-=-=-=-=- ASSESSMENT The following review of all active psychotropic and KICK PRESS OPERATOR-active agents is to ensure pharmacotherapy is evaluated for safety and efficacy as they relate to behaviorial and physiological changes and outcomes Depression w/ possible seasonal component - escitalopram 20mg daily - trazodone 25mg hs prn sleep > will d/c d/t nonutilization - buspirone 20mg bid * concern for recent increase in nightmares that appear to be impacting anxiety and mood. will trial prazosin off-label for nightmares PLAN 1. Pharmacotherapy [ ] No changes [ ] Discontinue: [X] Initiate: prazosin 1mg qhs [ ] Change the followin. Labs/tests: n/a 3. Consult(s) or Coordination of care: n/a 4. Other: n/a Education was provided to the regarding the above medication(s) risks, benefits, and alternatives; adverse drug reactions; expectations; and instructions for use. Findings/Plan was discussed with the patient and/or caregiver(s) whom provided verbal acknowledgement that the findings/plan was understood. The following counseling was specifically provided: [ ] Lab tests reviewed with patient [X] Instruction for management/treatment and/or follow-up [X] Importance of compliance with chosen treatment options [X] Risk Factor Reduction [ ] Other: RTC Interval: every 4-6weeks Next Apt: [id number] was provided specifications writer's contact information and instructed to contact specifications writer as needed for any changes to scheduling or concerns otherwise. is aware of actions to take if they feel unsafe, including calling the 's Crisis Line (#[phone]); calling 911; or going to the nearest urgent care or emergency room. The is also aware of how to contact the clinic should the require additional services prior to the next appointment. Time spent on chart review, session, and documentation: 30minutes /herlinda/ Olman Aguilar PharmD Clinical Pharmacist Practitioner Signed: 12/17/2023 15:24 OLMAN AGUILAR [place] [facility]
--- OUTSIDE RECORDS SUMMARY | 2024-08-18 13:06 | XMS_ITS | Encounter Summary ---
Author Name [facility] [place] Organization [place] Address [address] [place] [address] Care Team Providers Care Patent Searcher Name Role Phone ALEXANDR YODER Primary Care [...] Member ID Insurance Provider's Telephone Number Policy Gillette's Name Patient's Relationship to Policy Gillette [employer] [facility] (WNR) MEDICARE ADVANTAGE HUMAN A INSUR [facility] Mar 23, 2023 [id number] [phone] Ezekiel WILKERSON PATIENT Selected Encounter This section includes the information on record at [place] for the Encounter. Date/Time Encounter Type Encounter Description Reason Pro vider Source Dec 20, 2023 06:59 PM Outpatient Encounter ADMIN PAT ACTIVTIES (MASNONCT) I[facility] Encounter Template Text not used by [place] Plan of Treatment: Future Appointments (+ 6 months) and Future Tests (+/- 45 days) The Plan of Treatment section includes future care activities for the patient from all [place] treatmentfacilities. This section includes future appointments and future orders which are active, pending or scheduled. Future Appointments This section includes appointments that were scheduled to occur 6 months from the date of the Encounter, up to a maximum of 20 appointments. The data comes from all [place] treatment facilities. Appointment Date/Time Appointment Type Appointme nt Facility Name January 05, 2024 11:30 AM AMBULATORY - MEDICINE [facility] [place] [place] [facility] January 21, 2024 01:30 PM AMBULATORY - PSYCHIATRY [facility] [place] [facility] Feb 16, 2024 01:30 PM AMBULATORY - MEDICINE [facility] [place] [place] [facility] Feb 18, 2024 03:00 PM AMBULATORY - MEDICINE [facility] [place] [place] [facility] Mar 03, 2024 01:30 PM AMBULATORY - PSYCHIATRY [facility] [place] [facility] Apr 06, 2024 08:30 AM AMBULATORY - MEDICINE [facility] [place] [place] [facility] Apr 19, 2024 02:15 PM AMBULATORY - MEDICINE [facility] [place] [facility] May 05, 2024 01:30 PM AMBULATORY - PSYCHIATRY [facility] [place] [facility] Jun 13, 2024 09:30 AM AMBULATORY - MEDICINE [place] [facility] [place] [facility] Jun 19, 2024 02:00 PM AMBULATORY - MEDICINE [place] [facility] [place] [facility] Social History: Smoking Status (Most current) and Tobacco Use (All prior to encounter date) This section includes the most current, and the historical, smoking and tobacco- related health factors from the [place] facility where the Encounter took place. Current Smoking Status This section includes the most current smoking, or tobacco-related health factor, from the [place] facility where the Encounter took place. Date/Time Current Smoking Status Comment [facility] Apr 07, 2023 01:30 PM [facility] Tobacco Use History This section includes a history of the smoking, or tobacco-related health factors, that were collected on or before the date of the Encounter. The data comes from the [place] facility where the Encounter took place. Date/Time Smoking Status/Tobac co Use Comment Facility Apr 07, 2023 01:30 PM VA-TOBACCO QUIT 5 TO < 15 YRS [facility] [place] [facility] May 07, 2022 09:30 AM VA-TOBACCO FORMER USER [facility] [place] [facility] May 07, 2022 09:30 AM VA-TOBACCO QUIT 1 TO < 5 YRS [place] [facility] [place] [facility] May 15, 2021 08:45 AM VA-TOBACCO FORMER USER [facility] May 15, 2021 08:45 AM VA-TOBACCO QUIT 1 TO < 5 YRS [facility] Jun 04, 2020 10:30 AM VA-[facility]AC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 Apr 21, 2018 01:18 PM V1-PT DECLINES REF TO TOBACCO CESS PRGM [facility] Apr 21, 2018 01:18 PM V1-PT DECLINES TOB ACCO CESSATION MEDS [facility] Apr 21, 2018 01:18 PM V1-PT THINKING ABO UT QUIT TOBACCO USE [facility] Oct 18, 2017 02:19 PM V1-PT NOT INTEREST ED IN QUIT TOBACCO USE [facility] Oct 04, 2017 01:55 PM CURRENT SMOKER .5 packs a day [facility] Advance Directives: All historical and current Section Date Range: From patient's date of to the date document was created. This section includes ALL of a patient's completed or amended [place] Advance and Rescinded Directives. The entries below indicate that a directive exists for the patient, but an actual copy is not included with this document. The data comes from all [place] facilities. Date Advance Directives Provider Source Feb 13, 2003 ADVANCE DIRECTIVE KAT OVIEDO [facility] Encounter Notes: All associated encounter notes This section contains the clinical notes associated to the Encounter. Date/Time Encounter Note(s) Provider Source Dec 20, 2023 06:59 PM PHARMACY NOTE: LOCAL TITLE: V1 PHARMACY CUSTOMER CARE MEDICATION RENEWAL STANDARD TITLE: PHARMACY NOTE DATE OF NOTE: DEC 20, 2023@18:59 ENTRY DATE: DEC 20, 2023@18:59:23 AUTHOR: QUINTIN TOSCANO EXP COSIGNER: URGENCY: STATUS: COMPLETED Date: Nov Division: [facility] referred by Pharmacy Call Center for medication renewal: Non-controlled/maintenanc e medication Medications requested: [id number] AMLODIPINE BESYLATE 10MG TAB Defer to primary care provider To be mailed . Please review and renew if appropriate. *This note was generated by [facility]/[place] Pharmacy Customer Care. If you have any questions or need assistance, do not contact this author. Please refer all questions to your local, on-site pharmacy departments. /herlinda/ QUINTIN TOSCANO CPhT Attenuator, [place]/Pharmacy Customer Care Signed: 12/20/2023 18:59 Receipt Acknowledged By: 12/21/2023 14:13 /herlinda/ JR JOSEPH Nurse Practitioner 12/21/2023 07:41 /herlinda/ CAMDEN NINO, MSN, RN, CNL PRIMARY CARE TEAM NURSE QUINTIN TOSCANO [facility]
--- OUTSIDE RECORDS SUMMARY | 2024-08-18 13:06 | XMS_ITS | Encounter Summary ---
Author Name [facility] [place] Address [address] [place] [address] Care Team Providers Care Scrap Baller Name Role Phone ALEXANDR YODER Primary Care [...] Name Patient's Relationship to Policy [place] [employer] [facility] (WNR) MEDICARE ADVANTAGE HUMAN A INSUR ANCE [facility] Mar 23, 2023 [id number] [phone] Ezekiel WILKERSON PATIENT Selected Encounter This section includes the information on record at [place] for the Encounter. Date/Time Encounter Type Encounter Description Reason Pro vider Source Aug 20, 2023 12:00 AM Outpatient Encounter EVENT (HISTORICAL) IHE Encounter Template Text not used by [place] Plan of Treatment: Future Appointments (+ 6 months) and Future Tests (+/- 45 days) The Plan of Treatment section includes future care activities for the patient from all [place] treatmentfacilities. This section includes future appointments and future orders which are active, pending or scheduled. Future Appointments This section includes appointments that were scheduled to occur 6 months from the date of the Encounter, up to a maximum of 20 appointments. The data comes from all [place] treatment facilities. Appointment Date/Time Appointment Type Appointme nt Facility Name Aug 27, 2023 12:30 PM AMBULATORY [facility]AT[facility] [place] [facility] Aug 27, 2023 01:00 PM AMBULATORY [facility]AT[facility] [place] [facility] Sep 17, 2023 11:30 AM AM[facility]ULATORY [facility] [place] [facility] Sep 24, 2023 01:30 PM [facility]BUL[facility] Sep 24, 2023 02:00 PM AMBULATORY [facility] Oct 29, 2023 01:30 PM AMBULATORY [facility]ATRY [facility] [place] [facility] Nov 05, 2023 11:00 AM AM[facility] Nov 08, 2023 02:00 PM AMBULATORY [facility] MEDICINE [facility] [place] [facility] Nov 23, 2023 02:45 PM AMBULATORY - MEDICINE [facility] [place] [facility] Dec 09, 2023 01:30 PM AMBULATORY - MEDICINE [facility] [place] [facility] Dec 09, 2023 03:00 PM AMBULATORY [facility] MEDICINE [facility] [place] [facility] Dec 17, 2023 01:00 PM AMBULATORY - PS[facility]CHIATRY [facility] [place] [facility] Dec 17, 2023 01:30 PM AMBULATORY - PS[facility]CHIATRY [facility] [place] [facility] January 05, 2024 11:30 AM AMBULATORY - MEDICINE [facility] [place] [facility] January 21, 2024 01:30 PM AMBULATORY - PS[facility]CHIATRY [facility] [place] [facility] Feb 16, 2024 01:30 PM AMBULATORY [facility] MEDICINE [facility] [place] [facility] Feb 18, 2024 03:00 PM AMBULATORY - MEDICINE [facility] [place] [facility] Lab Results: +/- 30 days of the encounter This section includes the Chemistry and Hematology Lab Results on record with [place] for the patient. Radiology Reports and Pathology Reports are provided separately, in subsequent sections. Lab Results This section contains the Chemistry/Hematology Results that were resulted 30 days before or 30 daysafter the date of the Encounter. Date/Time Source Result Type Result - Unit Interpretation Reference Range Comment Jul 26, 2023 02:46 PM [facility] [place] [facility] THYROID TOTAL T4 Specimen Type: SERUM No comment entered. Ordering Provider: ALEXANDR YODER Report Released Date/Time: Jul 26, 2023 02:22 PM Reporting Lab: [facility] [place] [facility] [address] [facility] [id number] Performing Lab: [facility] [place] [facility] [address] [facility] [address] THYROID TOTAL T4 9.71 ug/dL 4.5-12.0 Jul 26, 2023 02:46 PM [facility] TSH Specimen Type: SERUM No comment entered. Ordering Provider: ALEXANDR YODER Report Released Date/Time: Jul 26, 2023 02:22 PM Reporting Lab: [facility] [address] [facility] [address] Performing Lab: [facility] [address] [facility] [address] TSH 0.55 u[IU]/mL 0.35-5.00 Social History: Smoking Status (Most current) and Tobacco Use (All prior to encounter date) This section includes the most current, and the historical, smoking and tobacco- related health factors from the [place] facility where the Encounter took place. Current Smoking Status This section includes the most current smoking, or tobacco-related health factor, from the [place] facility where the Encounter took place. Date/Time Current Smoking Status Comment [facility] Apr 07, 2023 01:30 PM VA-TOBACCO FOR[facility]ER [facility] Tobacco Use History This section includes a history of the smoking, or tobacco-related health factors, that were collected on or before the date of the Encounter. The data comes from the [place] facility where the Encounter took place. Date/Time Smoking Status/Tobac co Use Comment Facility Apr 07, 2023 01:30 PM VA-TOBACCO QUIT 5 TO < 15 YRS [facility] [place] [facility] May 07, 2022 09:30 AM VA-TOBACCO FORMER USER [facility] [place] [facility] May 07, 2022 09:30 AM VA-TOBACCO QUIT 1 TO < 5 YRS [facility] [place] [facility] May 15, 2021 08:45 AM VA-TOBACCO FORMER USER [facility] May 15, 2021 08:45 AM VA-TOBACCO QUIT 1 TO < 5 YRS [facility] Jun 04, 2020 10:30 AM VA-[facility]ACCO [facility]ER [facility] Jun 04, 2020 10:30 AM VA-TOBACCO QUIT < 1 YEAR [facility] May 23, 2019 09:36 AM VA-TOBACCO DOESNT USE WI 30 MIN WAKEUP [facility] May 23, 2019 09:36 AM VA-TOBACCO USE 30 YEARS OR MORE [facility] May 23, 2019 09:36 AM VA-TOBACCO USE ADVICE [facility] May 23, 2019 09:36 AM VA-TOBACCO USE SKI TOPPER NO [facility] May 23, 2019 09:36 AM VA-TOBACCO USE MED NO [facility] May 23, 2019 09:36 AM VA-TOBACCO USER EVERY DAY [facility] Apr 21, 2018 01:18 PM CURRENT SMOKER 1/2 pk a week [facility] Apr 21, 2018 01:18 PM V1-PT DECLINES REF TO TOBACCO CESS PRGM [facility] Apr 21, 2018 01:18 PM V1-PT DECLINES TOB ACCO CESSATION MEDS [facility] Apr 21, 2018 01:18 PM V1-PT THINKING ABO UT QUIT TOBACCO USE [facility] Oct 18, 2017 02:19 PM V1-PT NOT INTEREST ED IN QUIT TOBACCO USE [facility] Oct 04, 2017 01:55 PM CURRENT SMOKER .5 packs a day [facility] Advance Directives: All historical and current Section Date Range: From patient's date of to the date document was created. This section includes ALL of a patient's completed or amended [place] Advance and Rescinded Directives. The entries below indicate that a directive exists for the patient, but an actual copy is not included with this document. The data comes from all [place] facilities. Date Advance Directives Provider Source Feb 13, 2003 ADVANCE DIRECTIVE KAT OVIEDO [facility]
--- OUTSIDE RECORDS SUMMARY | 2024-08-18 13:06 | XMS_ITS ---
Author Name [facility] [place] Organization [place] Address [address] [place] [address] Care Team Providers Care Bread Oven Operator Name Role Phone ALEXANDR YODER Primary Care [...] Name Patient's Relationship to Policy [place] [employer] [facility] (WNR) MEDICARE ADVANTAGE HUMAN A [facility] Mar 23, 2023 [id number] [phone] Ezekiel WILKERSON PATIENT Selected Encounter This section includes the information on record at [place] for the Encounter. Date/Time Encounter Type Encounter Description Reason Provider Source January 03, 2024 11:51 AM Outpatient Encounter TELEPHONE TRIAGE OBI LUNA Chucky Encounter Template Text not used by [place] [...] - MEDICINE [facility] [place] [facility] January 21, 2024 01:30 PM AMBULATORY - PS[facility]CHIATRY [facility] [place] [facility] Feb 16, 2024 01:30 PM AMBULATORY - MEDICINE [facility] [place] [facility] Feb 18, 2024 03:00 PM AMBULATORY - MEDICINE [facility] [place] [facility] Mar 03, 2024 01:30 PM AMBULATORY - PS[facility]CHIATRY [facility] [place] [facility] Apr 06, 2024 08:30 AM AMBULATORY - MEDICINE [facility] [place] [facility] Apr 19, 2024 02:15 PM AMBULATORY - MEDICINE [facility] [place] [facility] May 05, 2024 01:30 PM AMBULATORY - PS[facility]CHIATRY [facility] [place] [facility] Jun 13, 2024 09:30 AM AMBULATORY - MEDICINE [facility] [place] [facility] Jun 19, 2024 02:00 PM AMBULATORY - MEDICINE [facility] [place] [facility] Jun 21, 2024 01:30 PM AMBULATORY - PSYCHIATRY [facility] [place] [facility] Jun 28, 2024 02:30 PM AMBULATORY - PSYCHIATRY [facility] [place] [facility] Jul 04, 2024 11:00 AM AMBULATORY - MEDICINE [place] [facility] [place] [facility] Social History: Smoking Status (Most current) and [...] took place. Date/Time Current Smoking Status Comment [facility] haider Apr 07, 2023 01:30 PM VA-TOBACCO FORMER USER [facility] Tobacco Use History This section includes a history of the smoking, or tobacco-related health factors, that were collected on or before the date of the Encounter. The data comes from the [place] facility where the Encounter took place. Date/Time Smoking Status/Tobac co Use Comment Facility Apr 07, 2023 01:30 PM VA-TOBACCO QUIT 5 TO < 15 YRS [facility] [place] [facility] May 07, 2022 09:30 AM VA-TOBACCO FORMER USER [facility] [place] [facility] May 07, 2022 09:30 AM VA-TOBACCO QUIT 1 TO < 5 YRS [facility] [place] [facility] May 15, 2021 08:45 AM VA-TOBACCO FORMER USER [facility] [place] [facility] May 15, 2021 08:45 AM VA-TOBACCO QUIT 1 TO < 5 YRS [place] [facility] [place] [facility] Jun 04, 2020 10:30 AM VA-TOBACCO FORMER USER [facility] [place] [facility] Jun 04, 2020 10:30 AM VA-TOBACCO QUIT < 1 YEAR [place] [facility] [place] [facility] May 23, 2019 09:36 AM VA-TOBACCO DOESNT USE WI 30 MIN WAKEUP [place] [facility] [place] [facility] May 23, 2019 09:36 AM VA-TOBACCO USE 30 YEARS OR MORE [facility] [place] [facility] May 23, 2019 09:36 AM VA-TOBACCO USE ADVICE [facility] [place] [facility] May 23, 2019 09:36 AM VA-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 [facility] [place] [facility] May 23, 2019 09:36 AM VA-TOBACCO USE MED NO [facility] [place] [facility] May 23, 2019 09:36 AM VA-TOBACCO USER EVERY DAY [facility] [place] [facility] Apr 21, 2018 01:18 PM CURRENT SMOKER 1/2 pk a week [facility] [place] [facility] Apr 21, 2018 01:18 PM V1-PT DECLINES REF TO TOBACCO CESS PRGM [place] [facility] [place] [facility] Apr 21, 2018 01:18 PM V1-PT DECLINES TOB ACCO CESSATION MEDS [place] [facility] [place] [facility] Apr 21, 2018 01:18 PM V1-PT THINKING ABO UT QUIT TOBACCO USE [facility] [place] [facility] Oct 18, 2017 02:19 PM V1-PT NOT INTEREST ED IN QUIT TOBACCO USE [facility] [place] [facility] Oct 04, 2017 01:55 PM CURRENT SMOKER .5 packs a day [facility] [place] [facility] Advance Directives: All historical and current Section [...] Feb 13, 2003 ADVANCE DIRECTIVE KAT [facility]EDO [facility] Encounter Notes: All associated encounter notes This section contains the clinical notes associated to the Encounter. Date/Time Encounter Note(s) Provider Source January 03, 2024 11:51 AM RN PROGRESS NOTE: LOCAL TITLE: CCC: CLINICAL TRIAGE STANDARD TITLE: RN PROGRESS NOTE DATE OF NOTE: JANUARY 03, 2024@11:51:53 ENTRY DATE: JANUARY 03, 2024@11:51:53 AUTHOR: OBI LUNA COSIGNER: URGENCY: STATUS: COMPLETED CCC: CLINICAL TRIAGE Has ADDENDA Patient Demographics Patient Name: ANDRZEJ WILKERSON Patient Primary [address]: [address] [place] [id number] Patient Primary Phone: [phone] Patient : 1955 Patient Age: 68 Caller/Recipient Relation to Patient: Self Emergency Contact: ROBERTO MONTES Triage Summary Chief Complaint: Difficulty Breathing System WHEN: Now, 911 Nurse's Recommendation / WHEN: 911 System WHERE: Emergency department Nurse's Recommendation / WHERE: [facility] Patient Disposition Patient/Caregiver agrees to plan of care: No Patient WHERE: Other Other - Patient Where Disposition: advice/PCP appt Patient WHEN: Other Other - Patient When Disposition: per PACT Nursing Plan and Disposition Referred patient to higher level of care Instructed to go to Emergency Room (ER) Other course(s) of action Generated msg to PACT/Provider Nurse Summary Nurse Summary: called to report COPD with significant SOB, difficulty breathing for last few days. He also reports right rib pain while breathing. Advised ER, [facility]or is stating ''they will only pay for three visits and I have reached that''. He reports seeing outside Pulmonologists(non-VA) and has her card in front of him. Advised I would reach out to Pulm provider to reports symptom's as well since she is his ''lung doctor''. [facility] will reach out to her. He wanted to confirm that this would be ''covered'' under [facility] [employer]. I gave disclaimer that I could not verify benefits and payment. Clinical Contact Center Codes Clinic/Location: V1 C[facility] PHONE CCC RN Notes Notes & Information: Education on triage, [facility] outcome. declines ER due to ''meeting only three covered visits''. [facility] Triage Complete Triage Date: 01/03/2024, 11:42 AM Triage Note: Phone Triage 03 Jan 2024 15:41:51 +0000 [facility] Demographics 68 y/o Male Results CC: Difficulty Breathing Software suggested: Now, 911 Software suggested follow-up location: Emergency department Values and Measures Duration of CC: 4 Days Positive Responses HPI: dyspnea, severe HPI: dyspnea, struggling to breathe HPI: wheezing, new or worsening HPI: wheezing, within past hour PMH: COPD Education Verbal Education Provided: Based on your responses, you should be treated in the emergency room. Take action: You need to see a provider now: delaying treatment could be life-threatening. Consider calling an ambulance. Sit in an upright position so that breathing is easier. Try to remain calm. /herlinda/ OBI ULNA [id number] Signed: 01/03/2024 11:52 Receipt Acknowledged By: 01/05/2024 08:43 /herlinda/ CAMDEN NINO, URVASHI, RN, CNL PRIMARY CARE TEAM NURSE 01/05/2024 08:42 /herlinda/ Cathie Del Angel RN Primary Care Staff Nurse 01/04/2024 ADDENDUM STATUS: COMPLETED Left msg for cb to find out status of Vet and if he would like appt /herlinda/ Cathie Del Angel RN Primary Care Staff Nurse Signed: 01/04/2024 14:50 OBI LUNA [facility]
--- OUTSIDE RECORDS SUMMARY | 2024-08-18 13:06 | XMS_ITS | Encounter Summary ---
Author Name [facility] [place] [facility] [place] [facility] [place] [facility] [place] Address [address] [place] [address] Care Team Providers Care Tower Watchman Name Role Phone ALEXANDR YODER Primary Care [...] Name Patient's Relationship to Policy [place] [employer] LYLE (WNR) MEDICARE ADVANTAGE HUMAN A INSUR [facility] Mar 23, 2023 [id number] [phone] Ezekiel WILKERSON PATIENT Selected Encounter This section includes the information on record at [place] for the Encounter. Date/Time Encounter Type Encounter Description Reason Provider Source Dec 17, 2023 01:00 PM PSYTX W PT 30 [facility]UTES [facility] - IND ICD-10-CM F32.A Depression, unspecified BRIA LOPEZ [place] Encounter Template Text not used by [place] Assessments - Encounter Diagnoses This section includes the primary and secondary diagnoses documented for the Encounter. Date/Time Primary/Secondary Diagnosis Diagnosis Name Provider Source Dec 20, 2023 08:51 AM PRIMARY Depression, unspecified BRIA LOPEZ [facility] Plan of Treatment: Future Appointments (+ 6 months) and Future Tests (+/- 45 days) The Plan of Treatment section includes future care activities for the patient from all [place] treatmentfacilities. This section includes future appointments and future orders which are active, pending or scheduled. Future Appointments This section includes appointments that were scheduled to occur 6 months from the date of the Encounter, up to a maximum of 20 appointments. The data comes from all [place] treatment facilities. Appointment Date/Time Appointment Type Appointme nt Facility Name January 05, 2024 11:30 AM AMBULATORY - MEDICINE [place] [facility] [place] [facility] January 21, 2024 01:30 PM AMBULATORY - PSYCHIATRY [place] [facility] [place] [facility] Feb 16, 2024 01:30 PM AMBULATORY - MEDICINE [place] [facility] [place] [facility] Feb 18, 2024 03:00 PM AMBULATORY - MEDICINE [place] [facility] [place] [facility] Mar 03, 2024 01:30 PM AMBULATORY - PSYCHIATRY [facility] [place] [facility] Apr 06, 2024 08:30 AM AMBULATORY - MEDICINE [place] [facility] [place] [facility] Apr 19, 2024 02:15 PM AMBULATORY - MEDICINE [place] [facility] [place] [facility] May 05, 2024 01:30 PM AMBULATORY - PSYCHIATRY [place] [facility] [place] [facility] Jun 13, 2024 09:30 AM AMBULATORY - MEDICINE [facility] [place] [facility] Social History: Smoking Status (Most current) and Tobacco Use (All prior to encounter date) This section includes the most current, and the historical, smoking and tobacco- related health factors from the [place] facility where the Encounter took place. Current Smoking Status This section includes the most current smoking, or tobacco-related health factor, from the [place] facility where the Encounter took place. Date/Time Current Smoking Status Comment [facility] Apr 07, 2023 01:30 PM VA-TOBACCO FORMER USER [place] [facility] [place] [facility] Tobacco Use History This section includes a history of the smoking, or tobacco-related health factors, that were collected on or before the date of the Encounter. The data comes from the [place] facility where the Encounter took place. Date/Time Smoking Status/Tobac co Use Comment Facility Apr 07, 2023 01:30 PM VA-TOBACCO QUIT 5 TO < 15 YRS [facility] [place] [facility] May 07, 2022 09:30 AM VA-TOBACCO FORMER USER [facility] [place] [facility] May 07, 2022 09:30 AM VA-TOBACCO QUIT 1 TO < 5 YRS [facility] [place] [facility] May 15, 2021 08:45 AM VA-TOBACCO FORMER USER [place] [facility] [place] [facility] May 15, 2021 08:45 AM VA-TOBACCO QUIT 1 TO < 5 YRS [facility] [place] [facility] Jun 04, 2020 10:30 AM VA-TOBACCO FORMER USER [place] [facility] [place] [facility] Jun 04, 2020 10:30 AM VA-TOBACCO QUIT < 1 YEAR [place] [facility] [place] [facility] May 23, 2019 09:36 AM VA-TOBACCO DOESNT USE WI 30 MIN WAKEUP [place] [facility] [place] [facility] May 23, 2019 09:36 AM VA-TOBACCO USE 30 YEARS OR MORE [facility] [place] [facility] May 23, 2019 09:36 AM VA-TOBACCO [facility] May 23, 2019 09:36 AM VA-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 USE 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 NO [place] [facility] [place] [facility] May 23, 2019 09:36 AM VA-TOBACCO USE MED NO [facility] [place] [facility] May 23, 2019 09:36 AM VA-TOBACCO USER EVERY DAY [facility] [place] [facility] Apr 21, 2018 01:18 PM CURRENT SMOKER 1/2 pk a week [facility] [place] [facility] Apr 21, 2018 01:18 PM V1-PT DECLINES REF TO TOBACCO CESS PRGM [facility] [place] [facility] Apr 21, 2018 01:18 PM V1-PT DECLINES TOB ACCO CESSATION MEDS [facility] [place] [facility] Apr 21, 2018 01:18 PM V1-PT THINKING ABO UT QUIT TOBACCO USE [facility] [place] [facility] Oct 18, 2017 02:19 PM V1-PT NOT INTEREST ED IN QUIT TOBACCO USE [facility] [place] [facility] Oct 04, 2017 01:55 PM CURRENT SMOKER .5 packs a day [facility] [place] Advance Directives: All historical and current Section Date Range: From patient's date of to the date document was created. This section includes ALL of a patient's completed or amended [place] Advance and Rescinded Directives. The entries below indicate that a directive exists for the patient, but an actual copy is not included with this document. The data comes from all [place] facilities. Date Advance Directives Provider Source Feb 13, 2003 ADVANCE DIRECTIVE KAT OVIEDO [facility] Encounter Notes: All associated encounter notes This section contains the clinical notes associated to the Encounter. Date/Time Encounter Note(s) Provider Source Dec 17, 2023 01:33 PM PSYCHOLOGY NOTE: LOCAL TITLE: PSYCHOLOGY NOTE STANDARD TITLE: PSYCHOLOGY NOTE DATE OF NOTE: DEC 17, 2023@13:33 ENTRY DATE: DEC 17, 2023@13:33:30 AUTHOR: BRIA LOPEZ COSIGNER: URGENCY: STATUS: COMPLETED Date of session: Nov Duration of session: 30 Diagnosis: Depression Presenting Problem ( report): I thought I'd be out more now that the weather is better but I just don't seem to feel like doing much. Says he asked [employer] to be his emergency contact, and she said she didn't have time. Galo found this crushing, and I suspect it's the major reason for him becoming more symptomatic at this point. Course of Session: He's gone fishing a few times, and does look forward to paying off his truck in the fall, as that will free up $200+ a month. Visits with neighbor, but doesn't walk much because of his COPD, which has been quite bothersome. Specific mental health/clinical interventions: Discussion of plan after I retire. He's of two minds about this: does feel he repeats everything he tells me to [place], and vice versa, but also feels that he's known me longer, and thus might be more inclined to bring up anything challenging that might arise. I'll leave it up to you. We left it that I'll be in touch once my status post-halfway is clear. Galo is sure he doesn't want to transfer. Mental Status/Clinical Impression: 1. Appearance (grooming, attire, apparent age) within normal limits: Yes; has taken of 15 pounds or so, says that helps some with his breathing. 2. Thought content was organized and goal directed: Yes 3. Speech was coherent and unimpaired: Yes 4. Affect was appropriate and unremarkable: Yes 5. Demeanor was calm, with no signs of agitation or restlessness: Yes 6. Problems with sleep or appetite reported: Sleeps excessively when depressed. 7. Psychosis (hallucinations or delusions): No Date of next planned contact: CHERYL /herlinda/ BRIA LOPEZ, PhD Clinical Psychologist Signed: 12/20/2023 08:52 [facility]
--- OUTSIDE RECORDS SUMMARY | 2024-08-18 13:06 | XMS_ITS ---
Author Name [facility] [place] [facility] [place] [facility] [place] Address [address] [place] [address] Care Team Providers Care Gas Producer Name Role Phone ALEXANDR YODER Primary Care [...] LYLE (WNR) MEDICARE ADVANTAGE HUMAN A INSUR [employer] Mar 23, 2023 [id number] [phone] Ezekiel WILKERSON PATIENT Selected Encounter This section includes the information on record at [place] for the Encounter. Date/Time Encounter Type Encounter Description Reason Provider Source Aug 19, 2023 03:39 PM Outpatient Encounter HT NON-VIDEO MONITORING ICD-10-CM I10 Essential (primary) hypertension MARY OLRA E Encounter Template Text not used by [place] Assessments - Encounter Diagnoses This section includes the primary and secondary diagnoses documented for the Encounter. Date/Time Primary/Secondary Diagnosis Diagnosis Name Provider Source Aug 19, 2023 03:39 PM PRIMARY Essential (primary) hypertension MARY LORA [place] [facility] [place] [facility] Aug 19, 2023 03:39 PM SECONDARY Hyperglycemia, unspecified MARY LORA [facility] [place] [facility] Plan of Treatment: Future Appointments (+ 6 months) and Future Tests (+/- 45 days) The Plan of Treatment section includes future care activities for the patient from all [place] [facility]. This section includes future appointments and future orders which are active, pending or scheduled. Future Appointments This section includes appointments that were scheduled to occur 6 months from the date of the Encounter, up to a maximum of 20 appointments. The data comes from all [place] treatment facilities. Appointment Date/Time Appointment Type Appointme nt Facility Name Aug 20, 2023 03:15 PM AMBULATORY - MEDICINE [facility] [place] [facility] Aug 27, 2023 12:30 PM AMBULATORY - PSYCHIATRY [facility] [place] [facility] Aug 27, 2023 01:00 PM AMBULATORY - PSYCHIATRY [facility] [place] [facility] Sep 17, 2023 11:30 AM AMBULATORY - MEDICINE [facility] [place] [facility] Sep 24, 2023 01:30 PM AMBULATORY - PSYCHIATRY [facility] [place] [facility] Sep 24, 2023 02:00 PM AMBULATORY - PSYCHIATRY [facility] [place] [facility] Oct 29, 2023 01:30 PM AMBULATORY - PSYCHIATRY [facility] [place] [facility] Nov 05, 2023 11:00 AM AMBULATORY - MEDICINE [facility] [place] [facility] Nov 08, 2023 02:00 PM AMBULATORY - MEDICINE [facility] [place] [facility] Nov 23, 2023 02:45 PM AMBULATORY - MEDICINE [facility] [place] [facility] Dec 09, 2023 01:30 PM AMBULATORY - MEDICINE [facility] [place] [facility] Dec 09, 2023 03:00 PM AMBULATORY - MEDICINE [facility] [place] [facility] Dec 17, 2023 01:00 PM AMBULATORY - PSYCHIATRY [facility] [place] [facility] Dec 17, 2023 01:30 PM AMBULATORY - PSYCHIATRY [facility] [place] [facility] January 05, 2024 11:30 AM AMBULATORY - MEDICINE [facility] [place] [facility] January 21, 2024 01:30 PM AMBULATORY - PSYCHIATRY [facility] [place] [facility] Feb 16, 2024 01:30 PM [facility] Feb 18, 2024 03:00 PM AMBULATORY - MEDICINE [facility] Lab Results: +/- 30 days of the encounter This section includes the Chemistry and Hematology Lab Results on record with [place] for the patient. Radiology Reports and Pathology Reports are provided separately, in subsequent sections. Lab Results This section contains the Chemistry/Hematology Results that were resulted 30 days before or 30 daysafter the date of the Encounter. Date/Time Source Result Type Result - Unit Interpretation Reference Range Comment Jul 26, 2023 02:46 PM [facility] THYROID TOTAL T4 Specimen Type: SERUM No comment entered. Ordering Provider: ALEXANDR YODER Report Released Date/Time: Jul 26, 2023 02:22 PM Reporting Lab: [facility] [address] [id number] Performing Lab: [facility] [address] [address] THYROID TOTAL T4 9.71 ug/dL 4.5-12.0 Jul 26, 2023 02:46 PM [facility] TSH Specimen Type: SERUM No comment entered. Ordering Provider: ALEXANDR YODER Report Released Date/Time: Jul 26, 2023 02:22 PM Reporting Lab: [facility] [address] [facility] [address] Performing Lab: [address] [address] TSH 0.55 u[IU]/mL 0.35-5.00 Social History: Smoking Status (Most current) and Tobacco Use (All prior to encounter date) This section includes the most current, and the historical, smoking and tobacco- related health factors from the [place] facility where the Encounter took place. Current Smoking Status This section includes the most current smoking, or tobacco-related health factor, from the [place] facility where the Encounter took place. Date/Time Current Smoking Status Comment Artem shukla Apr 07, 2023 01:30 PM VA-TOBACCO FORMER USER [facility] Tobacco Use History This section includes a history of the smoking, or tobacco-related health factors, that were collected on or before the date of the Encounter. The data comes from the [facility] where the Encounter took place. Date/Time Smoking Status/Tobac co Use Comment Facility Apr 07, 2023 01:30 PM VA-TOBACCO QUIT 5 TO < 15 YRS [place] [facility] [place] [facility] May 07, 2022 09:30 AM VA-TOBACCO FORMER USER [place] [facility] [place] [facility] May 07, 2022 09:30 AM VA-TOBACCO QUIT 1 TO < 5 YRS [facility] [place] [facility] May 15, 2021 08:45 AM VA-TOBACCO FORMER USER [place] [facility] [place] [facility] May 15, 2021 08:45 AM VA-TOBACCO QUIT 1 TO < 5 YRS [facility] [place] [facility] Jun 04, 2020 10:30 AM VA-TOBACCO [facility]ER [facility] Jun 04, 2020 10:30 AM VA-TOBACCO QUIT < 1 YEAR [place] [facility] [place] [facility] May 23, 2019 09:36 AM VA-TOBACCO DOESNT USE WI 30 MIN WAKEUP [facility] May 23, 2019 09:36 AM VA-TOBACCO USE 30 YEARS OR MORE [facility] May 23, 2019 09:36 AM VA-TOBACCO [facility] May 23, 2019 09:36 AM 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 [facility] May 23, 2019 09:36 AM VA-TOBACCO USE MED NO [place] [facility] [place] [facility] May 23, 2019 09:36 AM VA-TOBACCO USER EVERY DAY [facility] [place] [facility] Apr 21, 2018 01:18 PM CURRENT SMOKER 1/2 pk a week [facility] [place] [facility] Apr 21, 2018 01:18 PM V1-PT DECLINES REF TO TOBACCO CESS PRGM [place] [facility] [place] [facility] Apr 21, 2018 01:18 PM V1-PT DECLINES TOB ACCO CESSATION MEDS [facility] Apr 21, 2018 01:18 PM V1-PT THINKING ABO UT QUIT [facility]ACCO [facility] Oct 18, 2017 02:19 PM V1-PT NOT INTEREST ED IN QUIT TOBACCO USE [facility] Oct 04, 2017 01:55 PM CURRENT SMOKER .5 packs a day [facility] Advance Directives: All historical and current Section Date Range: From patient's date of to the date document was created. This section includes ALL of a patient's completed or amended [place] Advance and Rescinded Directives. The entries below indicate that a directive exists for the patient, but an actual copy is not included with this document. The data comes from all [place] facilities. Date Advance Directives Provider Source Feb 13, 2003 ADVANCE DIRECTIVE KAT OVIEDO [facility] Encounter Notes: All associated encounter notes This section contains the clinical notes associated to the Encounter. Date/Time Encounter Note(s) Provider Source Aug 19, 2023 03:39 PM CARE COORDINATION HOME TELEHEALTH SUMMARIZATION NOTE: LOCAL TITLE: HT MONTHLY MONITOR NOTE STANDARD TITLE: CARE COORDINATION HOME TELEHEALTH SUMMARIZATION DATE OF NOTE: AUG 19, 2023@15:39 ENTRY DATE: AUG 19, 2023@15:39:09 AUTHOR: DAVID LORA EXP COSIGNER: URGENCY: STATUS: COMPLETED The [facility] is enrolled in the Home Telehealth (HT) program and continues to be monitored via HT technology. The data sent by the [facility] is reviewed and analyzed by the HT staff, who provide ongoing case management and [facility] health education while communicating and collaborating with the health care team as appropriate. This note covers a total of 30 minutes for the month monitored. Month monitored: JULY 2023 DX: HTN/WEIGHT MANAGEMENT /es/ DAVID LORA RN HOME TELEHEALTH STAFF DESIGN ENGINEER Signed: 08/19/2023 15:40 DAVID LORA [facility]
--- OUTSIDE RECORDS SUMMARY | 2024-08-18 13:06 | XMS_ITS | Continuity of Care Document ---
Author Name [facility] Organization [facility] Care Team Providers Care Repair Specialist Name Role Phone [facility] Unavailable Unavailable Problems Combined list of problems from Department of Defense and Veterans Affairs facilities. It does not include entries that were removed or entered in error. Problem Status Onset Date Problem Type Date of Resolution Comments Source Partial tear, knee, anterior cruciate ligament Active 019 Condition Jun 09, 2019 Entered By: ADRIANA LOPEZ Comment: s/p fall - right knee trauma ( seen [facility]/ 05/23/19Jun 09, 2019 Entered By: ADRIANA LOPEZ Comment: 06/07/19 - MRI - [facility] - anterior Cruciate ligament tearJun 09, 2019 Entered By: ADRIANA LOPEZ Comment: Orthopedical surgical consult - [facility] Alcohol Abuse Active Condition [facility] Anxiety disorder Active Condition [facility] BACKACHE NOS Active Condition [facility] [place] esophagus Active Condition n 2022 Entered By: GEM SANDY Comment: Following [facility] GI- Repeat EGD for Harm[place]'s surveillance on 10/2024Jan 2022 Entered By: EGM SANDY Comment: lifelong PPI [facility] Chronic kidney disease stage 2 Active Condition Jul 26, 2018 Entered By: ADRIANA LOPEZ Comment: GFR 54 [facility] Chronic obstructive lung disease Active Condition Mar 22, 2019 Entered By: ADRIANA LOPEZ Comment: MED: ALBUTEROL 100/IPRATRO, [facility]OL [facility] Entered By: ALEXANDR YODER Comment: Follows with [place] [facility] Degenerative disc disease Active Condition Sep 07, 2022 Entered By: GEM SANDY Comment: moderate to severe lumbar DDD on xray 08/2022 [facility] Depression Active Condition [facility] Depression * (ICD-9-CM 300.4/311.) Active Condition [facility] Depressive Disorder NOS Active Condition [facility] Ex-smoker Active Condition Jul 04 24 Entered By: ALEXANDR YODER Comment: Quit 2018 [facility] GENERALIZED ANXIETY DIS Active Condition [facility] H/O: Deep vein thrombosis Active Condition [facility] H/O: Deep vein thrombosis Active Condition Oct 04, 2017 Entered By: ADRIANA LOPEZ Comment: per pt report - upper arm ( a[place]- non [place] [facility] ) [facility] H/O: gastric ulcer Active Condition J 2019 Entered By: GEM SANDY Comment: reports approximately 15 years ago. [facility] History of surgery Active Condition F 2017 Entered By: ADRIANA LOPEZ Comment: Mastoid - left ear - in [facility] 2017 Entered By: ADRIANA LOPEZ Comment: cholecysectomy - [facility] 2017 Entered By: ADRIANA LOPEZ Comment: right knee ? arthroscopy ( has scar) - surgery [facility] 2017 Entered By: ADRIANA LOPEZ Comment: proptosis left eye requiring surgical intervention in 2009 [facility] Hordeolum * (ICD-9-CM 373.11) Active Condition [facility] HTN - Hypertension (SCT [id number]) Active Condition [facility] [place] [facility] Hypertension Active Condition [facility] HYPERTENSION NOS Active Condition [facility] Hypothyroid Due To Iodine Rx Active Condition [facility] Hypothyroidism Active Condition [facility] Hypothyroidism * (ICD-9-CM 244.9) Active Condition Dec 09 1 Entered By: LORENZO RIOJAS Comment: S/P [place] X 2 FOR [facility] HYPOTHYROIDISM NOS Active Condition [facility] Impaired fasting glycemia Active Condition Aug 10, 2024 Entered By: ALEXANDR YODER Comment: A1C 6.0 recheck in October [facility] Issue of Repeat Prescriptions (ICD-9-CM V68.1) Active Condition [facility] Low Back Pain [facility] NEUROTIC DISORDER NOS Active Condition [facility] Obesity Active Condition [facility] OBESITY Active Condition [facility] Ocular rosacea Active Condition [facility] Other and unspecified injury to knee, leg, ankle, and foot (ICD-9-CM 959.7) Active Condition Nov 03 Entered By: LORENZO RIOJAS Comment: 11-03-11 [facility] 2013 Entered By: LORENZO RIOJAS Comment: 10-06 NO SHOW FOR PHYS THERAPY EVAL PRO [facility] PANIC DISORDER WO/AGORAPHOBIA Active Condition [facility] Peptic Ulcer Disease Active Condition Nov 03, 2006 Entered By: MATT RENTERIA Comment: had bleeding ulcer in 1996 per patient [facility] Personal History of Tobacco Use Active Condition [facility] Radioactive iodine-induced hypothyroidism Active Condition Mar 22, 2019 Entered By: ADRIANA LOPEZ Comment: MED:LEVOTHYROXIN E NA (SYNTHROID) 0.15MG [facility] Sleep apnea Active Condition [facility] SPINAL STENOSIS-LUMBAR Active Condition [facility] Steatosis of liver Active Condition D 2018 Entered By: ADRIANA LOPEZ Comment: 05/2019 - Liver labs - wnl [facility] Supraventricular tachycardia Active Condition May 19, 2021 Entered By: ANGEL GALDAMEZ Comment: 05/13/21 [facility] 2022 Entered By: ALEXANDR YODER Comment: Successful Ablation [facility] Tobacco Use Disorder * (ICD-9-CM 305.1) Active Condition [facility] Diagnosis: ICD-10-CM M79.604 Pain in right leg Active Diagnosis [facility] Diagnosis: ICD-10-CM M79.651 Pain in right thigh Active Diagnosis [facility] Diagnosis: ICD-10-CM M79.601 Pain in right arm Active Diagnosis [facility] Diagnosis: ICD-10-CM F32.A Depression, unspecified Active Diagnosis [facility] Diagnosis: ICD-10-CM I10 Essential (primary) hypertension Active Diagnosis [facility] Diagnosis: ICD-10-CM L60.3 Nail dystrophy Active Diagnosis [facility] Diagnosis: ICD-10-CM Z23 Encounter for immunization Active Diagnosis [facility] Diagnosis: ICD-10-CM Z71.89 Other specified counseling Active Diagnosis [facility] Diagnosis: ICD-10-CM F41.9 Anxiety disorder, unspecified Active Diagnosis [facility] Diagnosis: ICD-10-CM R14.0 Abdominal distension (gaseous) Active Diagnosis [facility] Diagnosis: ICD-10-CM M25.511 Pain in right shoulder Active Diagnosis [facility] Diagnosis: ICD-10-CM R49.0 Dysphonia Active Diagnosis [facility] Diagnosis: ICD-10-CM R49.9 Unspecified voice and resonance disorder Active Diagnosis [facility] Diagnosis: ICD-10-CM E66.01 Morbid (severe) obesity due to excess calories Active Diagnosis [facility] Diagnosis: ICD-10-CM R05.8 Other specified cough Active Diagnosis [facility] Diagnosis: ICD-10-CM B35.1 Tinea unguium Active Diagnosis [facility] Diagnosis: ICD-10-CM J44.9 Chronic obstructive pulmonary disease, unspecified Active Diagnosis [facility] Diagnosis: ICD-10-CM J44.1 Chronic obstructive pulmonary disease w (acute) exacerbation Active Diagnosis [facility] Diagnosis: ICD-10-CM Z04.9 Encounter for examination and observation for unsp reason Active Diagnosis [facility] Diagnosis: ICD-10-CM R25.1 Tremor, unspecified Active Diagnosis [id number] Diagnosis: ICD-10-CM M65.4 Radial styloid tenosynovitis [de Quervain] Active Diagnosis [facility] Diagnosis: ICD-10-CM R13.12 Dysphagia, oropharyngeal phase Active Diagnosis [facility] Diagnosis: ICD-10-CM M25.531 Pain in right wrist Active Diagnosis [facility] Diagnosis: ICD-10-CM R13.10 Dysphagia, unspecified Active Diagnosis [facility] [place] [facility] Medications Combined list of outpatient medications from Department of Defense and Veterans Affairs facilities.Medications provided include 1) outpatient medications from the last 15 months, and 2) patient-reported medications. Medication Details Route Status Patient Instructions Prescription Expires Prescription Number Last Dispense Date Ordering Provider Order Date Order Qty Source ACETAMINOPH EN 325MG TAB TAKE TWO TABLETS BY MOUTH THREE TIMES DAILY NEEDED FOR PAIN ORAL 09/03/2023 [id number] RA JUAN SANDY 2022 90 [facility] ALBUTEROL 90MCG/ACTUA T (CFC-F) INHL,ORAL,8 .5GM DOSE COUNTER INHALE 2 PUFFS BY MOUTH EVERY 4 TO 6 HOURS NEEDED FOR WHEEZING OR SHORTNES S OF BREATH RESPIR ATORY (INHAL ATION) ACTIVE 01/04/2025 [id number] 4 MATT MCGUIRE 2023 1 [facility] ALBUTEROL 90MCG/ACTUA T (CFC-F) INHL,ORAL,8 .5GM DOSE COUNTER INHALE 2 PUFFS BY MOUTH EVERY 4 HOURS NEEDED RESPIR ATORY (INHAL ATION) DISCONT INUED 11/05/2024 [id number] 4 ALEXANDR YODER 2023 2 [facility] ALBUTEROL SO4 0.083% INHL,3ML INHALE 1 AMPULE IN NEBULIZE R EVERY 6 HOURS NEEDED FOR BREATHIN G RESPIR ATORY (INHAL ATION) 01/26/2024 [id number] 3 PARESH, ALEXANDR ESTELLA 2022 120 [facility] ALBUTEROL SO4 3MG/IPRATRO PIUM BR 0.5MG/3ML INHL,3ML INHALE 1 VIAL (3ML) IN NEBULIZE R TWICE DAILY RESPIR ATORY (INHAL ATION) ACTIVE 08/01/2025 [id number] 4 PARESH, ALEXANDR ESTELLA 2023 60 [facility] ALBUTEROL SO4 3MG/IPRATRO PIUM BR 0.5MG/3ML INHL,3ML INHALE 1 VIAL (3ML) IN NEBULIZE R TWICE DAILY RESPIR ATORY (INHAL ATION) DISCONT INUED 01/04/2025 [id number] 4 MATT MCGUIRE 2023 60 [facility] ALBUTEROL SO4 3MG/IPRATRO PIUM BR 0.5MG/3ML INHL,3ML INHALE 1 AMPULE IN NEBULIZE R TWICE DAILY NEEDED FOR WHEEZING RESPIR ATORY (INHAL ATION) DISCONT INUED 10/08/2024 [id number] 4 MATT MCGUIRE 2023 60 [facility] AMITRIPTYLI NE HCL 10MG TAB TAKE ONE TABLET BY MOUTH AT BEDTIME FOR 14 DAYS, THEN TAKE TWO TABLETS AT BEDTIME ORAL ACTIVE 04/07/2025 [id number] 4 KARLA BRYAN 2023 166 [facility] AMLODIPINE BESYLATE 10MG TAB TAKE ONE TABLET BY MOUTH ONCE DAILY FOR BLOOD PRESSURE /HEART, DO NOT TAKE WITH GRAPEFRU IT JUICE NOTE NEW TABLET STRENGTH /INCREAS ED DOSE ORAL ACTIVE 12/21/2024 [id number] 4 PARESH, ALEXANDR ESTELLA 2023 90 [facility] AMLODIPINE BESYLATE 10MG TAB TAKE ONE TABLET BY MOUTH ONCE DAILY FOR BLOOD PRESSURE /HEART, DO NOT TAKE WITH GRAPEFRU IT JUICE NOTE NEW TABLET STRENGTH /INCREAS ED DOSE ORAL DISCONT INUED 08/31/2023 [id number] SANDY,RA ANIYAHLUANN VICKY 2022 90 [facility] ASPIRIN 325MG TAB,EC TAKE ONE TABLET BY MOUTH ONCE DAILY TO PREVENT STROKE/H EART ATTACK ORAL ACTIVE 05/03/2025 [id number] 4 PARESH, ALEXANDR ESTELLA 2023 100 [facility] ASPIRIN 325MG TAB,EC TAKE ONE TABLET BY MOUTH ONCE DAILY TO PREVENT STROKE/H EART ATTACK ORAL DISCONT INUED 06/06/2024 [id number] 4 TRACY HALL 2023 100 [facility] ASPIRIN 325MG TAB,EC TAKE ONE TABLET BY MOUTH ONCE DAILY TO PREVENT STROKE/H EART ATTACK ORAL 01/09/2024 [id number] PARESH ALEXANDR ESTELLA 2022 100 [facility] BACITRACIN/ NEOMYCIN/PO LYMYXIN B SO4 OINT,TOP APPLY SUFFICIE NT AMOUNT TOPICALL Y TWICE DAILY TOPICA L 03/17/2024 [id number] 4 PARESH ALEXANDR ESTELLA 2023 30 [facility] BENZONATATE 200MG CAP TAKE ONE CAPSULE BY MOUTH THREE TIMES DAILY NEEDED FOR COUGH ORAL 12/05/2023 [id number] 4 PARESH, ALEXANDR ESTELLA 2023 30 [facility] [place] BUSPIRONE HCL 10MG TAB TAKE TWO TABLETS BY MOUTH TWICE DAILY ORAL ACTIVE 06/29/2025 [id number] 4 DANI RUBY 2023 360 [facility] BUSPIRONE HCL 10MG TAB TAKE TWO TABLETS BY MOUTH TWICE DAILY ORAL DISCONT INUED 12/17/2024 [id number] DANI RUBY D 2023 360 [facility] BUSPIRONE HCL 10MG TAB TAKE TWO TABLETS BY MOUTH TWICE DAILY FOR ANXIETY ORAL DISCONT INUED (EDIT) 11/22/2024 [id number] 4 DANI RUBYDE D 2023 120 [facility] BUSPIRONE HCL 10MG TAB TAKE TWO TABLETS BY MOUTH TWICE DAILY FOR ANXIETY ORAL DISCONT INUED 09/24/2024 [id number] 4 DANI RUBY D 2023 120 [facility] BUSPIRONE HCL 10MG TAB TAKE ONE TABLET BY MOUTH TWICE DAILY FOR ANXIETY ORAL DISCONT INUED (EDIT) 07/23/2024 [id number] DANI RUBYDE D 2022 60 [facility] BUSPIRONE HCL 15MG TAB TAKE ONE TABLET BY MOUTH TWICE DAILY ORAL DISCONT INUED (EDIT) 08/27/2024 [id number] 4 DANI RUBYDE D 2023 60 [facility] BUSPIRONE HCL 5MG TAB TAKE ONE TABLET BY MOUTH TWICE DAILY FOR ANXIETY ORAL DISCONT INUED (EDIT) 07/07/2024 [id number] DANI RUBY YOAN D 2022 60 [facility] CETIRIZINE HCL 10MG TAB TAKE ONE TABLET BY MOUTH ONCE DAILY FOR ALLERGIE S ORAL ACTIVE 05/03/2025 [id number] ALEXANDR YODER 2023 90 [facility] CETIRIZINE HCL 10MG TAB TAKE ONE TABLET BY MOUTH ONCE DAILY FOR ALLERGIE S ORAL DISCONT INUED BY PROVIDE R 04/20/2024 [id number] 4 DANI RUBY D 2023 90 [facility] CETIRIZINE HCL 10MG TAB TAKE ONE TABLET BY MOUTH ONCE DAILY FOR ALLERGIE S ORAL DISCONT INUED 01/05/2024 [id number] 4 PARESH, ALEXANDR ESTELLA 2022 90 [facility] CLOTRIMAZOL E 1% SOLN,TOP APPLY DIRECTED TOPICALL Y ONCE DAILY FOR FUNGAL INFECTIO N TOPICA L 10/10/2023 [id number] 3 PARESH, ALEXANDR ESTELLA 2022 30 [facility] DEXTROMETHO RPHAN HBR 10MG/GUAIFE NESIN 100MG/5ML (AF & SF) LIQUID TAKE 10MLS (2 TEASPOON SFUL) BY MOUTH FOUR TIMES DAILY NEEDED FOR COUGH ORAL DISCONT INUED 08/06/2023 [id number] RA JUAN SANDY 2022 120 [facility] EPINEPHRINE (EQV-EPI-PE N) 0.3MG/0.3ML INJECTOR INJECT DIRECTED INTRAMUS CULARLY ONE TIME INTRAM USCULA R ACTIVE 02/16/2025 [id number] 4 PARESH, ALEXANDR ESTELLA 2023 2 [facility] ESCITALOPRA M OXALATE 20MG TAB TAKE ONE TABLET BY MOUTH ONCE DAILY FOR MOOD/DEP RESSION ORAL ACTIVE 10/29/2024 [id number] 4 DANI RUBY D 2023 90 [facility] ESCITALOPRA M OXALATE 20MG TAB TAKE ONE TABLET BY MOUTH ONCE DAILY FOR MOOD/DEP RESSION ORAL DISCONT INUED 11/18/2023 [id number] 4 DANI RUBY D 2022 90 [facility] FAMOTIDINE 20MG TAB TAKE ONE TABLET BY MOUTH ONCE DAILY FOR STOMACH ACID ORAL ACTIVE 07/05/2025 [id number] 4 PARESH, ALEXANDR ESTELLA 2023 90 [facility] FAMOTIDINE 20MG TAB TAKE ONE TABLET BY MOUTH AT BEDTIME FOR STOMACH ACID ORAL DISCONT INUED BY PROVIDE R 02/16/2025 [id number] PARESH, ALEXANDR ESTELLA 2023 90 [facility] FLUTICASONE 100MCG/SALM ETEROL 50MCG INHL,ORAL,D ISKUS,60 INHALE 1 PUFF BY MOUTH TWICE DAILY - RINSE MOUTH AFTER USE RESPIR ATORY (INHAL ATION) DISCONT INUED 07/26/2024 [id number] 4 PARESH, ALEXANDR ESTELLA 2022 1 [facility] FLUTICASONE 250MCG/SALM ETEROL 50MCG INHL,ORAL,D ISKUS,60 INHALE 1 PUFF BY MOUTH EVERY 12 HOURS - RINSE MOUTH AFTER USE RESPIR ATORY (INHAL ATION) DISCONT INUED BY PROVIDE R 10/08/2024 [id number] MATT MCGUIRE 2023 1 [facility] [place] FLUTICASONE 500MCG/SALM ETEROL 50MCG INHL,ORAL,D ISKUS,60 INHALE 1 PUFF BY MOUTH EVERY 12 HOURS - RINSE MOUTH AFTER USE RESPIR ATORY (INHAL ATION) ACTIVE 05/25/2025 [id number] 4 MATT MCGUIRE 2023 1 [facility] HYDROCORTIS ONE 1% CREAM,TOP APPLY A SMALL AMOUNT TOPICALL Y TWICE DAILY NEEDED FOR ITCHING TOPICA L 03/01/2024 [id number] 4 ALEXANDR YODER 2023 30 [facility] LEVOTHYROXI NE NA 150MCG TAB (SYNTHROID) TAKE ONE TABLET BY MOUTH EVERY MORNING 30 MINUTES BEFORE BREAKFAS T FOR THYROID - TAKE ON AN EMPTY STOMACH WITH A FULL GLASS OF WATER ORAL ACTIVE 02/16/2025 [id number] 4 MADHAV YODERA ESTELLA 2023 90 [facility] LEVOTHYROXI NE NA 150MCG TAB (SYNTHROID) TAKE ONE TABLET BY MOUTH EVERY MORNING 30 MINUTES BEFORE BREAKFAS T FOR THYROID - TAKE ON AN EMPTY STOMACH WITH A FULL GLASS OF WATER ORAL DISCONT INUED 01/05/2024 [id number] 4 MADHAV YODERA ESTELLA 2022 90 [facility] LIDOCAINE 5% PATCH APPLY 1 PATCH TOPICALL Y EVERY 12 HOURS NEEDED FOR NERVE PAIN (LEAVE PATCH ON FOR 12 HOURS, THEN REMOVE PATCH) TOPICA L ACTIVE 08/01/2025 [id number] 4 PARESH, ALEXANDR ESTELLA 2023 30 [facility] LIDOCAINE 5% PATCH APPLY 1 PATCH TOPICALL Y ONCE DAILY NEEDED FOR NERVE PAIN (LEAVE PATCH ON FOR 12 HOURS, THEN REMOVE PATCH) TOPICA L 09/03/2023 [id number] 3 RA JUAN SANDY 2022 30 [facility] OMEPRAZOLE 20MG CAP,EC TAKE TWO CAPSULES BY MOUTH EVERY MORNING 30 MINUTES BEFORE BREAKFAS T FOR GASTROES OPHAGEAL REFLUX DISEASE ORAL ACTIVE 07/05/2025 [id number] ALEXANDR YODER 2023 180 [facility] OMEPRAZOLE 20MG CAP,EC TAKE ONE CAPSULE BY MOUTH EVERY MORNING 30 MINUTES BEFORE BREAKFAS T ORAL DISCONT INUED (EDIT) 07/26/2024 [id number] ALEXANDR YODER 2023 90 [facility] OMEPRAZOLE 20MG CAP,EC TAKE ONE CAPSULE BY MOUTH ONCE DAILY ORAL DISCONT INUED 07/23/2024 [id number] 3 ALEXANDR YODER 2022 90 [facility] OTHER CAP/TAB TAKE BY MOUTH ORAL ACTIVE DANI RUBY 2021 [facility] PRAZOSIN HCL 1MG CAP TAKE ONE CAPSULE BY MOUTH AT BEDTIME ORAL DISCONT INUED BY PROVIDE R 12/17/2024 [id number] 4 DANI RUBY 2023 30 [facility] PREDNISONE 50MG TAB TAKE ONE TABLET BY MOUTH ONCE DAILY FOR COPD EXACERBA TION ORAL DISCONT INUED 08/06/2023 [id number] RA JUAN SANDY 2022 5 [facility] SULFAMETHOX AZOLE 800MG/TRIME THOPRIM 160MG TAB TAKE 1 TABLET BY MOUTH TWICE DAILY FOR INFECTIO N ORAL DISCONT INUED 08/06/2023 [id number] RA JUAN SANDY 2022 10 [facility] TIOTROPIUM 2.5MCG/ACTU AT INHL,ORAL,6 0D,4GM INHALE 2 PUFFS BY MOUTH ONCE DAILY ORAL ACTIVE 05/27/2025 [id number] 4 MATT MCGUIRE 2023 1 [facility] TRAZODONE HCL 50MG TAB TAKE ONE-HALF TABLET BY MOUTH AT BEDTIME NEEDED FOR SLEEP ORAL DISCONT INUED BY PROVIDE R 04/07/2024 [id number] 3 DANI RUBY 2022 15 [facility] Allergies, Adverse Reactions, Alerts Combined list of allergies from Department of Defense and Veterans Affairs facilities. It does not include entries that were removed or entered in error. Substance Category Reaction Severity Reaction type Status Date Reported Comments Source BEE STINGS Propensity to adverse reaction (finding) Urticaria active 1 [facility] BEE STINGS Propensity to adverse reaction (finding) Anaphylaxis active 8 [facility] DOXYCYCLINE Propensity to adverse reactions to drug (finding) Nausea and vomiting active 1 [facility] [place] [facility] [facility] INSECT STINGS Propensity to adverse reaction (finding) [facility] INSECT STINGS Propensity to adverse reaction (finding) Dyspnea active 5 [facility] [place] Propensity to adverse reactions to drug (finding) HIVES active 5 [facility] [place] Propensity to adverse reactions to drug (finding) Urticaria active 1 [facility] [place] Propensity to adverse reactions to drug (finding) Anxiety active 8 [facility] [place] [facility] [facility] [place] 1 Propensity to adverse reactions to drug (finding) ITCHING,JENNIFER ERING EYES, HIVES active 9 [facility] Immunizations Combined list of available immunizations from the Department of Defense and Veterans Affairs facilities. Immunization Series Date Given Administered By Site Reaction Lot Number CVX Code Drug Control Panel Builder Status Comments Source COVID-19 (MODERNA), MRNA, LNP-S, PF, 50 MCG/0.5 ML (AGES 12+ YEARS) 2023 [place] LEFT DELTO ID [id number] 312 complet ed [facility] [place] [facility] INFLUENZA, HIGH-DOSE, TRIVALENT, PF 2023 [place] RIGHT DELTO ID [id number] 135 complet ed [facility] [place] [facility] INFLUENZA, HIGH-DOSE, QUADRIVALENT 2022 [place] LEFT DELTO ID [id number] 197 complet ed [facility] [place] [facility] COVID-19 (MODERNA), MRNA, LNP-S, PF, 50 MCG/0.5 ML (AGES 12+ YEARS) 1 2022 312 complet ed [facility] [place] [facility] COVID-19 (MODERNA), MRNA, LNP-S, BIVALENT BOOSTER, PF, 50 MCG/0.5 ML OR 25MCG/0.25 ML DOSE 1 2021 WENDY CARTER LEFT DELTO ID [id number] 229 complet ed [facility] INFLUENZA VACCINE, QUADRIVALENT, ADJUVANTED 2021 205 complet ed [facility] PNEUMOCOCCAL CONJUGATE PCV20, POLYSACCHARID E [id number] CONJUGATE, ADJUVANT, PF 2021 216 complet ed [facility] COVID-19 (MODERNA), MRNA, LNP-S, PF, 100 MCG/0.5ML DOSE OR 50 MCG/0.25ML DOSE 3 2021 207 complet ed MOD; [id number]; 2 [facility] COVID-19 (MODERNA), MRNA, LNP-S, PF, 100 MCG OR 50 MCG DOSE 3 2020 207 complet ed MOD; [id number]; 2 [facility] INFLUENZA VACCINE, QUADRIVALENT, ADJUVANTED 2020 205 complet ed [facility] ZOSTER RECOMBINANT 2 2020 187 complet ed [facility] COVID-19 (PFIZER), MRNA, LNP-S, PF, 30 MCG/0.3 ML DOSE 2 2020 208 complet ed PFR; [id number]; 1 [facility] COVID-19 (PFIZER), MRNA, LNP-S, PF, 30 MCG/0.3 ML DOSE 1 2020 208 complet ed PFR; [id number]; 1 [facility] INFLUENZA, HIGH-DOSE, QUADRIVALENT 2020 197 complet ed [facility] TD(ADULT) UNSPECIFIED FORMULATION 2020 139 complet ed Site: Left Deltoid [facility] INFLUENZA, TRIVALENT, ADJUVANTED 2018 168 complet ed Site: Right Deltoid [facility] ZOSTER RECOMBINANT 1 2018 187 complet ed [facility] PNEUMOCOCCAL POLYSACCHARID E PPV23 2017 33 complet ed [facility] FLU,3 YRS (HISTORICAL) 2011 88 complet ed [facility] PNEUMOCOCCAL, UNSPECIFIED FORMULATION 2011 109 complet ed Site: Left Deltoid [facility] FLU,3 YRS (HISTORICAL) 2010 88 complet ed [facility] DTAP, UNSPECIFIED FORMULATION 2010 107 complet ed [facility] TD(ADULT) UNSPECIFIED FORMULATION 2010 139 complet ed PRO [facility] TDAP 2010 115 complet ed pro [facility] INFLUENZA VACCINE (HISTORICAL) 2001 NONE 88 complet ed left arm,ot [id number], exp 01/23/03 [facility] FLU,3 YRS (HISTORICAL) 2000 BRITTNEY GOMEZ 88 complet ed [facility] FLU,3 YRS (HISTORICAL) 1999 RAE ARZOLA 88 complet ed [facility] INFLUENZA, WHOLE 1998 DESTINY FELIPE 16 complet ed [facility] PNEUMOCOCCAL, UNSPECIFIED FORMULATION 1997 RAE ARZOLA 109 complet ed [facility] Results Combined list of recent chemistry, hematology and other laboratory results from [facility], ranging from 15 months to all on record, depending upon the facility. Order Name Results Value Reference Range Date Interpretation Specimen Comments Source BNP (Natriur etic Peptide Brain) NATRIURETI C PEPTIDE B [MASS/VOLU ME] IN SERUM OR PLASMA 20 pg/mL 10 - 100 08/08 Specimen Type: PLASMA No comment entered. Ordering Provider: BHUMIKA YODER SA Report Released Date/Time: Aug 08, 2024 08:51 AM Reporting Lab: [facility] [place] [facility] [address] [facility] [address] Performing Lab: [facility] [place] [facility] [address] [facility] [address] [facility] [place] [facility] LIPID PANEL FASTING CHOLESTERO L [MASS/VOLU ME] IN SERUM OR PLASMA 122 mg/dL 08/08 Specimen Type: SERUM No comment entered. Ordering Provider: BHUMIKA YODER SA Report Released Date/Time: Aug 08, 2024 08:51 AM Reporting Lab: [facility] [place] [facility] [address] [facility] [address] Performing Lab: [facility] [place] [facility] [address] [facility] [address] [facility] [place] [facility] LIPID PANEL FASTING TRIGLYCERI DE [MASS/VOLU ME] IN SERUM OR PLASMA 117 mg/dL 0 - 150 08/08 Specimen Type: SERUM No comment entered. Ordering Provider: BHUMIKA YODER SA Report Released Date/Time: Aug 08, 2024 08:51 AM Reporting Lab: [facility] [place] [facility] [address] [facility] [address] Performing Lab: [facility] [facility] [address] [facility] [address] [facility] [place] [facility] LIPID PANEL FASTING CHOLESTERO L IN LDL [MASS/VOLU ME] IN SERUM OR PLASMA BY CALCULATIO N 70 mg/dL 0 - 129 08/08 Specimen Type: SERUM No comment entered. Ordering Provider: BHUMIKA YODER SA Report Released Date/Time: Aug 08, 2024 08:51 AM Reporting Lab: [facility] [place] [facility] [address] [facility] [address] Performing Lab: [facility] [place] [facility] [address] [facility] [address] [facility] [place] [facility] LIPID PANEL FASTING CHOLESTERO L.TOTAL/CH OLESTEROL IN HDL [MASS RATIO] IN SERUM OR PLASMA 4.2 08/08 Specimen Type: SERUM No comment entered. Ordering Provider: BHUMIKA YODER SA Report Released Date/Time: Aug 08, 2024 08:51 AM Reporting Lab: [facility] [place] [facility] [address] [facility] [address] Performing Lab: [facility] [place] [facility] [address] [facility] [address] [facility] [place] [facility] LIPID PANEL FASTING CHOLESTERO L IN HDL [MASS/VOLU ME] IN SERUM OR PLASMA 29 mg/dL 40 - 60 08/08 L Specimen Type: SERUM No comment entered. Ordering Provider: BHUMIKA YODER SA Report Released Date/Time: Aug 08, 2024 08:51 AM Reporting Lab: [facility] [place] [facility] [address] [facility] [address] Performing Lab: [facility] [place] [facility] [address] [facility] [address] [facility] [facility] LIVER FUNCTION PROTEIN [MASS/VOLU ME] IN SERUM OR PLASMA 6.6 g/dL 6.0 - 8.3 08/08 Specimen Type: SERUM No comment entered. Ordering Provider: BHUMIKA YODER SA Report Released Date/Time: Aug 08, 2024 08:51 AM Reporting Lab: [facility] [place] [facility] [address] [facility] [address] Performing Lab: [place] [facility] [place] [facility] [address] [facility] [address] [place] [facility] [facility] [facility] LIVER FUNCTION ALBUMIN [MASS/VOLU ME] IN SERUM OR PLASMA 3.7 g/dL 3.5 - 5.0 08/08 Specimen Type: SERUM No comment entered. Ordering Provider: BHUMIKA YODER SA Report Released Date/Time: Aug 08, 2024 08:51 AM Reporting Lab: [facility] [place] [address] [address] Performing Lab: [facility] [place] [facility] [address] [facility] [address] [facility] [facility] LIVER FUNCTION ALKALINE PHOSPHATAS E [ENZYMATIC ACTIVITY/V OLUME] IN SERUM OR PLASMA 96 U/L 40 - 150 08/08 Specimen Type: SERUM No comment entered. Ordering Provider: BHUMIKA YODER SA Report Released Date/Time: Aug 08, 2024 08:51 AM Reporting Lab: [facility] [place] [facility] [address] [facility] [address] Performing Lab: [facility] [place] [facility] [address] [facility] [address] [facility] [place] [facility] LIVER FUNCTION ASPARTATE AMINOTRANS FERASE [ENZYMATIC ACTIVITY/V OLUME] IN SERUM OR PLASMA 20 U/L 5 - 34 08/08 Specimen Type: SERUM No comment entered. Ordering Provider: BHUMIKA YODER SA Report Released Date/Time: Aug 08, 2024 08:51 AM Reporting Lab: [place] [facility] [place] [facility] [address] [facility] [address] Performing Lab: [place] [facility] [place] [facility] [address] [facility] [address] [facility] [place] [place] [facility] LIVER FUNCTION ALANINE AMINOTRANS FERASE [ENZYMATIC ACTIVITY/V OLUME] IN SERUM OR PLASMA 28 U/L 08/08 Specimen Type: SERUM No comment entered. Ordering Provider: BHUMIKA YODER SA Report Released Date/Time: Aug 08, 2024 08:51 AM Reporting Lab: [facility] [place] [address] [address] Performing Lab: [place] [facility] [address] [address] [facility] TRN [facility] LIVER FUNCTION BILIRUBIN. TOTAL [MASS/VOLU ME] IN SERUM OR PLASMA 0.5 mg/dL 0.2 - 1.2 08/08 Specimen Type: SERUM No comment entered. Ordering Provider: BHUMIKA YODER SA Report Released Date/Time: Aug 08, 2024 08:51 AM Reporting Lab: [facility] [place] [address] [address] Performing Lab: [place] [facility] [place] [facility] [address] [facility] [address] [facility] [place] [facility] BASIC METABOLI C PANEL (non-fas ting) UREA NITROGEN [MASS/VOLU ME] IN SERUM OR PLASMA 19 mg/dL 7 - 25 08/08 Specimen Type: SERUM No comment entered. Ordering Provider: BHUMIKA YODER SA Report Released Date/Time: Aug 08, 2024 08:51 AM Reporting Lab: [facility] [place] [address] [address] Performing Lab: [facility] TRN [facility] [address] [facility] [address] [facility] CLARERANDALUSIA HEALTHTRN [facility]ENTERUSE [facility] BASIC METABOLI C PANEL (non-fas ting) GLUCOSE [MASS/VOLU ME] IN SERUM OR PLASMA 102 mg/dL 65 - 100 08/08 H Specimen Type: SERUM No comment entered. Ordering Provider: BHUMIKA YODER SA Report Released Date/Time: Aug 08, 2024 08:51 AM Reporting Lab: [facility]ANDAL[facility] HEALTHTRN [facility] [address] [facility] [address] Performing Lab: [facility] [address] [facility] [address] [facility] BASIC METABOLI C PANEL (non-fas ting) SODIUM [MOLES/VOL UME] IN SERUM OR PLASMA 139 mmol/L 135 - 145 08/08 Specimen Type: SERUM No comment entered. Ordering Provider: BHUMIKA YODER SA Report Released Date/Time: Aug 08, 2024 08:51 AM Reporting Lab: [facility] CLAREREAST [facility]ERN [facility] [address] [facility] [address] Performing Lab: [facility]ERANDALUSIA HEALTHTRN [facility] [address] [facility] [address] [facility] BASIC METABOLI C PANEL (non-fas ting) POTASSIUM [MOLES/VOL UME] IN SERUM OR PLASMA 4.3 mmol/L 3.5 - 5.0 08/08 Specimen Type: SERUM No comment entered. Ordering Provider: BHUMIKA YODER SA Report Released Date/Time: Aug 08, 2024 08:51 AM Reporting Lab: [facility]ANDAL[facility]IA HEALTHTRN [facility] [address] [facility] [address] Performing Lab: [facility] CL[facility]ERANDALUSIA HEALTHTRN [facility] [address] [facility] [address] [facility]EREAST [facility]ERN [facility] BASIC METABOLI C PANEL (non-fas ting) CHLORIDE [MOLES/VOL UME] IN SERUM OR PLASMA 107 mmol/L 100 - 110 08/08 Specimen Type: SERUM No comment entered. Ordering Provider: BHUMIKA YODER SA Report Released Date/Time: Aug 08, 2024 08:51 AM Reporting Lab: [place] [facility] [facility] CENTERUSETS [address] [address] Performing Lab: [place] [facility] [facility]ENTERUSETS [address] [address] [facility] WSTRN [facility]ENTERUSE [facility] BASIC METABOLI C PANEL (non-fas ting) CARBON DIOXIDE, TOTAL [MOLES/VOL UME] IN SERUM OR PLASMA 23 meq/L 20 - 30 08/08 Specimen Type: SERUM No comment entered. Ordering Provider: BHUMIKA YODER SA Report Released Date/Time: Aug 08, 2024 08:51 AM Reporting Lab: [place] [facility] [facility] CENTERUSETS [address] [address] Performing Lab: [place] [facility] [facility]ENTERUSE[address] [address] [facility] WSTRN [facility]ENTERUSE [facility] BASIC METABOLI C PANEL (non-fas ting) CREATININE [MASS/VOLU ME] IN SERUM OR PLASMA 1.51 mg/dL 0.50 - 1.40 08/08 H Specimen Type: SERUM No comment entered. Ordering Provider: BHUMIKA YODER SA Report Released Date/Time: Aug 08, 2024 08:51 AM Reporting Lab: [place] [facility] [facility]ENTERUSE[address] [address] Performing Lab: [place] [facility] [facility]ENTERUSE[address] [address] [facility]N [facility]ENTERUSE [facility] BASIC METABOLI C PANEL (non-fas ting) GLOMERULAR FILTRATION RATE/1.73 SQ M.PREDICTE D [VOLUME RATE/AREA] IN SERUM, PLASMA OR BLOOD BY CREATININE -BASED FORMULA (CKD-EPI 2020) 50 mL/min 60 08/08 L Specimen Type: SERUM No comment entered. Ordering Provider: BHUMIKA YODER SA Report Released Date/Time: Aug 08, 2024 08:51 AM Reporting Lab: [place] [facility] [facility]ENTERUSE[address] [address] Performing Lab: [facility] CL[facility]L [facility]ERN [facility] CENTERUSE[address] [address] [facility]ENTERUSE [facility] HEMOGLOB IN A1C PANEL HEMOGLOBIN A1C/HEMOGL OBIN.TOTAL IN BLOOD BY HPLC 6.0 4.0 - 5.6 08/08 H Specimen Type: BLOOD Comment: Values obtained from A1C measurement s can vary. For atypical A1C assays, a reported value of 7.0 could actually be between 6.72 and 7.28 if measured by a reference method. A reported value of 9.0 could actually be between 8.73 and 9.27. Ref: http://www. ngsp.org/[place] Pdata.asp Ordering Provider: BHUMIKA YODER SA Report Released Date/Time: Aug 08, 2024 08:51 AM Reporting Lab: [facility] [address] [address] Performing Lab: [address] [address] [facility] TSH THYROTROPI N [UNITS/VOL UME] IN SERUM OR PLASMA 1.43 u[IU]/mL 0.35 - 5.00 08/08 Specimen Type: SERUM No comment entered. Ordering Provider: BHUMIKA YODER SA Report Released Date/Time: Aug 08, 2024 08:51 AM Reporting Lab: [address] [address] Performing Lab: [facility] CLAREREAST [facility] CENTERN [address] [address] [facility]N [facility]ENTERUSE [facility] CBC AND DIFF (AUTO) LEUKOCYTES [#/VOLUME] IN BLOOD BY AUTOMATED COUNT 6.37 10*3/uL 4.50 - 11.00 08/08 Specimen Type: BLOOD No comment entered. Ordering Provider: BHUMIKA YODER SA Report Released Date/Time: Aug 08, 2024 08:51 AM Reporting Lab: [address] [address] Performing Lab: [facility]N [address] [address] [place] [facility] CBC AND DIFF (AUTO) ERYTHROCYT ES [#/VOLUME] IN BLOOD BY AUTOMATED COUNT 4.95 10*6/uL 4.23 - 5.66 08/08 Specimen Type: BLOOD No comment entered. Ordering Provider: BHUMIKA YODER SA Report Released Date/Time: Aug 08, 2024 08:51 AM Reporting Lab: [facility] [place] [facility] [address] [facility] [address] Performing Lab: [facility] [place] [facility] [address] [facility] [address] [place] [facility] CBC AND DIFF (AUTO) HEMOGLOBIN [MASS/VOLU ME] IN BLOOD 14.8 g/dL 12.8 - 17 08/08 Specimen Type: BLOOD No comment entered. Ordering Provider: BHUMIKA YODER SA Report Released Date/Time: Aug 08, 2024 08:51 AM Reporting Lab: [facility] [place] [facility] [address] [facility] [address] Performing Lab: [facility] [place] [facility] [address] [facility] [address] [place] [facility] CBC AND DIFF (AUTO) HEMATOCRIT [VOLUME FRACTION] OF BLOOD BY AUTOMATED COUNT 44.4 39.2 - 50.4 08/08 Specimen Type: BLOOD No comment entered. Ordering Provider: BHUMIKA YODER SA Report Released Date/Time: Aug 08, 2024 08:51 AM Reporting Lab: [place] [facility] [place] [facility] [address] [facility] [address] Performing Lab: [place] [facility] [place] [facility] [address] [facility] [address] [place] [facility] [facility] CBC AND DIFF (AUTO) MCV [ENTITIC VOLUME] BY AUTOMATED COUNT 89.7 fL 82 - 99 08/08 Specimen Type: BLOOD No comment entered. Ordering Provider: BHUMIKA YODER SA Report Released Date/Time: Aug 08, 2024 08:51 AM Reporting Lab: [place] [facility] [place] [address] [address] Performing Lab: [facility] [place] [facility] [address] [facility] [address] [place] [facility] CBC AND DIFF (AUTO) MCHC [MASS/VOLU ME] BY AUTOMATED COUNT 33.3 g/dL 30.8 - 35.1 08/08 Specimen Type: BLOOD No comment entered. Ordering Provider: BHUMIKA YODER SA Report Released Date/Time: Aug 08, 2024 08:51 AM Reporting Lab: [facility] [place] [facility] [address] [facility] [address] Performing Lab: [place] [facility] [facility] [address] [facility] [address] [facility] [place] [facility] CBC AND DIFF (AUTO) PLATELETS [#/VOLUME] IN BLOOD BY AUTOMATED COUNT 226 10*3/uL 140 - 360 08/08 Specimen Type: BLOOD No comment entered. Ordering Provider: BHUMIKA YODER SA Report Released Date/Time: Aug 08, 2024 08:51 AM Reporting Lab: [place] [facility] [facility] [address] [facility] [address] Performing Lab: [place] [facility] [facility] [address] [facility] [address] [facility] W[facility]N [facility]CH[facility] TS [facility] CBC AND DIFF (AUTO) ERYTHROCYT E DISTRIBUTI ON WIDTH [RATIO] BY AUTOMATED COUNT 13.2 12.0 - 16.0 08/08 Specimen Type: BLOOD No comment entered. Ordering Provider: BHUMIKA YODER SA Report Released Date/Time: Aug 08, 2024 08:51 AM Reporting Lab: [place] [facility] [facility] [address] [facility] [address] Performing Lab: [place] [facility] [facility] [address] [facility] [address] [place] [facility] [place] [facility] CBC AND DIFF (AUTO) MONOCYTES [#/VOLUME] IN BLOOD BY AUTOMATED COUNT 0.83 10*3/uL 0.30 - 1.10 08/08 Specimen Type: BLOOD No comment entered. Ordering Provider: BHUMIKA YODER SA Report Released Date/Time: Aug 08, 2024 08:51 AM Reporting Lab: [facility] [place] [facility] [address] [facility] [address] Performing Lab: [facility] [facility] [address] [facility] [address] [facility] [place] [facility] CBC AND DIFF (AUTO) MCH [ENTITIC MASS] BY AUTOMATED COUNT 29.9 pg 26.2 - 32.6 08/08 Specimen Type: BLOOD No comment entered. Ordering Provider: BHUMIKA YODER SA Report Released Date/Time: Aug 08, 2024 08:51 AM Reporting Lab: [facility] [facility] [address] [facility] [address] Performing Lab: [facility] [facility] [address] [facility] [address] [place] [facility] [place] [facility] CBC AND DIFF (AUTO) NEUTROPHIL S/100 LEUKOCYTES IN BLOOD BY AUTOMATED COUNT 47.0 43.7 - 75.8 08/08 Specimen Type: BLOOD No comment entered. Ordering Provider: BHUMIKA YODER SA Report Released Date/Time: Aug 08, 2024 08:51 AM Reporting Lab: [facility] [place] [facility] [address] [facility] [address] Performing Lab: [facility] [facility] [address] [place] [address] [place] [facility] [place] [facility] CBC AND DIFF (AUTO) LYMPHOCYTE S/100 LEUKOCYTES IN BLOOD BY AUTOMATED COUNT 35.8 14.0 - 42.3 08/08 Specimen Type: BLOOD No comment entered. Ordering Provider: BHUMIKA YODER SA Report Released Date/Time: Aug 08, 2024 08:51 AM Reporting Lab: [facility] [place] [facility] [address] [facility] [address] Performing Lab: [facility] [facility] [address] [place] [address] [place] [facility] [place] [facility] CBC AND DIFF (AUTO) MONOCYTES/ 100 LEUKOCYTES IN BLOOD BY AUTOMATED COUNT 13.0 5.1 - 13.7 08/08 Specimen Type: BLOOD No comment entered. Ordering Provider: BHUMIKA YODER SA Report Released Date/Time: Aug 08, 2024 08:51 AM Reporting Lab: [facility] [place] [facility] [address] [facility] [address] Performing Lab: [facility] [place] [facility] [address] [facility] [address] [place] [facility] [place] [facility] CBC AND DIFF (AUTO) EOSINOPHIL S/100 LEUKOCYTES IN BLOOD BY AUTOMATED COUNT 2.5 0.4 - 6.8 08/08 Specimen Type: BLOOD No comment entered. Ordering Provider: BHUMIKA YODER SA Report Released Date/Time: Aug 08, 2024 08:51 AM Reporting Lab: [facility] [place] [facility] [address] [facility] [address] Performing Lab: [facility] [place] [facility] [address] [facility] [address] [place] [facility] [place] [facility] CBC AND DIFF (AUTO) BASOPHILS/ 100 LEUKOCYTES IN BLOOD BY AUTOMATED COUNT 0.9 0.1 - 2.0 08/08 Specimen Type: BLOOD No comment entered. Ordering Provider: BHUMIKA YODER SA Report Released Date/Time: Aug 08, 2024 08:51 AM Reporting Lab: [facility] [place] [facility] [address] [facility] [address] Performing Lab: [facility] [place] [facility] [address] [facility] [address] [place] [facility] [place] [facility] CBC AND DIFF (AUTO) NEUTROPHIL S [#/VOLUME] IN BLOOD BY AUTOMATED COUNT 2.99 10*3/uL 2.20 - 7.60 08/08 Specimen Type: BLOOD No comment entered. Ordering Provider: BHUMIKA YODER SA Report Released Date/Time: Aug 08, 2024 08:51 AM Reporting Lab: [facility] [place] [facility] [address] [facility] [address] Performing Lab: [place] [facility] [place] [address] [address] [facility] [facility] CBC AND DIFF (AUTO) LYMPHOCYTE S [#/VOLUME] IN BLOOD BY AUTOMATED COUNT 2.28 10*3/uL 1.00 - 3.20 08/08 Specimen Type: BLOOD No comment entered. Ordering Provider: BHUMIKA YODER SA Report Released Date/Time: Aug 08, 2024 08:51 AM Reporting Lab: [facility] [place] [facility] [address] [facility] [address] Performing Lab: [facility] [facility] [address] [facility] [address] [facility] [facility] CBC AND DIFF (AUTO) EOSINOPHIL S [#/VOLUME] IN BLOOD BY AUTOMATED COUNT 0.16 10*3/uL 0.03 - 0.44 08/08 Specimen Type: BLOOD No comment entered. Ordering Provider: BHUMIKA YODER SA Report Released Date/Time: Aug 08, 2024 08:51 AM Reporting Lab: [facility] [place] [facility] [address] [facility] [address] Performing Lab: [facility] [place] [facility] [address] [facility] [address] [place] [facility] CBC AND DIFF (AUTO) BASOPHILS [#/VOLUME] IN BLOOD BY AUTOMATED COUNT 0.06 10*3/uL 0.01 - 0.13 08/08 Specimen Type: BLOOD No comment entered. Ordering Provider: BHUMIKA YODER SA Report Released Date/Time: Aug 08, 2024 08:51 AM Reporting Lab: [facility] [place] [facility] [address] [facility] [address] Performing Lab: [facility] [place] [facility] [address] [facility] [address] [facility] [facility] CBC AND DIFF (AUTO) IMMATURE GRANULOCYT ES/100 LEUKOCYTES IN BLOOD BY AUTOMATED COUNT 0.8 0.0 - 0.7 08/08 H Specimen Type: BLOOD No comment entered. Ordering Provider: BHUMIKA YODER SA Report Released Date/Time: Aug 08, 2024 08:51 AM Reporting Lab: [facility] [place] [facility] [address] [facility] [address] Performing Lab: [place] [facility] [address] [facility] [address] [facility] [place] [facility] CBC AND DIFF (AUTO) IMMATURE GRANULOCYT ES [#/VOLUME] IN BLOOD 0.05 10*3/uL 0.00 - 0.06 08/08 Specimen Type: BLOOD No comment entered. Ordering Provider: BHUMIKA YODER SA Report Released Date/Time: Aug 08, 2024 08:51 AM Reporting Lab: [facility] [address] [facility] [address] Performing Lab: [facility] [address] [address] [facility] CBC AND DIFF (AUTO) NRBC % 0.0 0.0 - 0.0 08/08 Specimen Type: BLOOD No comment entered. Ordering Provider: BHUMIKA YODER SA Report Released Date/Time: Aug 08, 2024 08:51 AM Reporting Lab: [facility] [address] [facility] [address] Performing Lab: [facility] [address] [facility] CBC AND DIFF (AUTO) NRBC, ABS 0.00 10*3/uL 0.00 - 0.00 08/08 Specimen Type: BLOOD No comment entered. Ordering Provider: BHUMIKA YODER SA Report Released Date/Time: Aug 08, 2024 08:51 AM Reporting Lab: [facility] [address] [facility] [address] Performing Lab: [facility] [address] [address] [facility] HEPATITI S B SURFACE ANTIBODY (HBsAb)- WH HEPATITIS B VIRUS SURFACE AB [PRESENCE] IN SERUM BY IMMUNOASSA Y Non Reactive 02/15 Specimen Type: SERUM No comment entered. Ordering Provider: BHUMIKA YODER SA Report Released Date/Time: Feb 16, 2024 01:52 PM Reporting Lab: [facility] [place] [facility] [address] [facility] [address] Performing Lab: [facility] [place] [facility] [address] [facility] [address] [facility] [place] [facility] THYROID TOTAL T4 THYROXINE (T4) [MASS/VOLU ME] IN SERUM OR PLASMA 9.87 ug/dL 4.5 - 12.0 02/15 Specimen Type: SERUM No comment entered. Ordering Provider: BHUMIKA YODER SA Report Released Date/Time: Feb 16, 2024 02:10 PM Reporting Lab: [facility] [address] [facility] [address] Performing Lab: [facility] [address] [facility] [address] [facility] TSH THYROTROPI N [UNITS/VOL UME] IN SERUM OR PLASMA 0.74 u[IU]/mL 0.35 - 5.00 02/15 Specimen Type: SERUM No comment entered. Ordering Provider: BHUMIKA YODER SA Report Released Date/Time: Feb 16, 2024 02:10 PM Reporting Lab: [facility] [address] [facility] [address] Performing Lab: [facility] [address] [address] [facility] Vital Signs Combined list of inpatient and outpatient Vital Signs from Department of Defense and Veterans Affairs, ranging from 12 months to all on record, depending upon the facility. Vital Sign Value Date Comments Source SYSTOLIC BLOOD PRESSURE 136 08/08/20 24 08:44:34 [facility] DIASTOLIC BLOOD PRESSURE 85 024 08:44:34 [facility] PULSE OXIMETRY 94 08/08/2024 08:44:34 [facility] PULSE 84 08/08/2024 08:44:34 [facility] RESPIRATION 19 08/08/2024 08:44:34 [facility] SYSTOLIC BLOOD PRESSURE 134 07/31/20 24 14:03:45 [facility] DIASTOLIC BLOOD PRESSURE 91 024 14:03:45 [facility] PULSE OXIMETRY 93 07/31/2024 14:03:45 [facility] PAIN 2 07/31/2024 14:03:45 [facility] TEMPERATURE 98.3 07/31/2024 14:03:45 [facility] PULSE 82 07/31/2024 14:03:45 [facility] RESPIRATION 16 07/31/2024 14:03:45 [facility] SYSTOLIC BLOOD PRESSURE 160 07/04/20 24 11:05:02 [facility] DIASTOLIC BLOOD PRESSURE 97 024 11:05:02 [facility] PULSE OXIMETRY 92 07/04/2024 11:05:02 [facility] PAIN 1 07/04/2024 11:05:02 [facility] TEMPERATURE 97.3 07/04/2024 11:05:02 [facility] PULSE 78 07/04/2024 11:05:02 [facility] RESPIRATION 16 07/04/2024 11:05:02 [facility] SYSTOLIC BLOOD PRESSURE 137 02/16/20 24 13:43:55 [facility] DIASTOLIC BLOOD PRESSURE 86 024 13:43:55 [facility] PULSE OXIMETRY 91 02/16/2024 13:43:55 [facility] WEIGHT 262 02/16/2024 13:43:55 [facility] BMI 44kg/m2 02/16/2024 13:43:55 [facility] PAIN 2 02/16/2024 13:43:55 [facility] TEMPERATURE 98.2 02/16/2024 13:43:55 [facility] PULSE 82 02/16/2024 13:43:55 [facility] RESPIRATION 16 02/16/2024 13:43:55 [facility] SYSTOLIC BLOOD PRESSURE 126 01/05/20 24 11:19:22 [facility] DIASTOLIC BLOOD PRESSURE 83 024 11:19:22 [facility] PULSE OXIMETRY 91 01/05/2024 11:19:22 [facility] WEIGHT 261 01/05/2024 11:19:22 [facility] BMI 44kg/m2 01/05/2024 11:19:22 [facility] PAIN 2 01/05/2024 11:19:22 [facility] TEMPERATURE 98.1 01/05/2024 11:19:22 [facility] PULSE 78 01/05/2024 11:19:22 [facility] RESPIRATION 18 01/05/2024 11:19:22 [facility] Encounters Combined list of: 1) Encounters from Department of Veterans Affairs facilities going back up to thelast 18 months. 2) Encounters from the Department of Defense facilities going back up to 280 months. Location Location Details Encounter Type Encounter Number Reason For Visit Attending Provider ADM Date DC Date Status Disposition Source [facility] Outpatient Encounter [id number] Diagnos is: ICD-10- CM I10 Essenti al (primar y) hyperte nsion<b r/> DAVID LORA A 02/19 [facility] MTMS BY PHARM ADDL 15 MIN [id number] Diagnos is: ICD-10- CM F32.A Depress ion, unspeci fied
DANI RUBY D 03/03 [facility] PSYTX W PT 30 MINUTES [id number] Diagnos is: ICD-10- CM F32.A Depress ion, unspeci fied
TEODORA LOPEZ ON A 03/03 [facility] OFF/OP EST MAY X REQ PHY/QHP [id number] Diagnos is: ICD-10- CM Z71.89 Other specifi ed social services counselor ing<br/ > PEPPER JOYCE H 03/03 [facility] OFFICE O/P EST MOD 30-39 MIN [id number] Diagnos is: ICD-10- CM R13.10 Dysphag ia, unspeci fied
PARESH,L JOSÉ MIGUEL ESTELLA 03/09 [facility] PRO PHONE CALL 5-10 MIN [id number] Diagnos is: ICD-10- CM I10 Essenti al (primar y) hyperte nsion<b r/> GUIDO, DAVID A 03/10 [facility] Outpatient Encounter [id number] Diagnos is: ICD-10- CM I10 Essenti al (primar y) hyperte nsion<b r/> GUIDO, DAVID A 03/22 [facility] Outpatient Encounter [id number] 03/30 [facility] HC PRO PHONE CALL 11-20 MIN [id number] Diagnos is: ICD-10- CM I10 Essenti al (primar y) hyperte nsion<b r/> GUIDO, DAVID A 04/01 [facility] HC PRO PHONE CALL 21-30 MIN [id number] Diagnos is: ICD-10- CM I10 Essenti al (primar y) hyperte nsion<b r/> GUIDO, DAVID A 04/02 [facility] MTMS BY PHARM ADDL 15 MIN [id number] Diagnos is: ICD-10- CM F32.A Depress ion, unspeci fied
DANI RUBY 04/07 [facility] OFFICE O/P EST LOW 20-29 MIN [id number] Diagnos is: ICD-10- CM M25.531 Pain in right wrist<b r/> PARESH,L JOSÉ MIGUEL ESTELLA 04/07 [facility] PSYTX W PT 30 MINUTES [id number] Diagnos is: ICD-10- CM F32.A Depress ion, unspeci fied
TEODORA LOPEZ ON A 04/07 [facility] EVALUATE SWALLOWING FUNCTION [id number] Diagnos is: ICD-10- CM R13.12 Dysphag ia, orophar yngeal phase<b r/> MILA,S ARAH 04/16 [facility] MANUAL THERAPY /> [facility] [id number] Diagnos is: ICD-10- CM M65.4 Radial styloid tenosyn ovitis [de Quervai n]
AMINTAREBEKAH LIE E 04/20 [facility] ([facility]) OFFICE O/P EST HI 40-54 MIN [id number] [id number] Diagnos is: ICD-10- CM R25.1 Tremor, unspeci fied
HARMONAN NA 04/21 [facility] ([facility] Outpatient Encounter [id number] Diagnos is: ICD-10- CM I10 Essenti al (primar y) hyperte nsion<b r/> APYRL LORAA A 04/22 [facility] Out[facility] Encounter [id number] 05/04 [facility] Out[facility] Encounter [id number] 05/06 [facility] Out[facility] Encounter [id number] 05/11 [facility] Out[facility] Encounter [id number] 05/13 [facility] Out[facility] Encounter [id number] 05/19 [facility] Outpatient Encounter [id number] 05/19 [facility] Outpatient Encounter [id number] Diagnos is: ICD-10- CM I10 Essenti al (primar y) hyperte nsion<b r/> GUIDO, DAVID A 05/21 [facility] MTMS BY PHARM ADDL 15 MIN [id number] Diagnos is: ICD-10- CM F32.A Depress ion, unspeci fied
DANI RUBY D 05/25 [facility] MTMS BY PHARM ADDL 15 MIN [id number] Diagnos is: ICD-10- CM F32.A Depress ion, unspeci fied
DANI RUBY D 05/25 [facility] PSYTX W PT 30 MINUTES [id number] Diagnos is: ICD-10- CM F32.A Depress ion, unspeci fied
TEODORA LOPEZ ON A 05/25 [facility] Out[facility] Encounter [id number] 05/27 [facility] HC PRO PHONE CALL 5-10 MIN [id number] Diagnos is: ICD-10- CM I10 Essenti al (primar y) hyperte nsion<b r/> TRI,VICTORIA ECCA R 10/16 /2023 [facility] Out[facility] Encounter [id number] 06/11 [facility] Outpatient Encounter [id number] 06/17 [facility] HC PRO PHONE CALL 5-10 MIN [id number] Diagnos is: ICD-10- CM I10 Essenti al (primar y) hyperte nsion<b r/> GUIDO, DAVID A 06/21 [facility] Outpatient Encounter [id number] Diagnos is: ICD-10- CM I10 Essenti al (primar y) hyperte nsion<b r/> GUIDO, DAVID A 06/21 [facility] MTMS BY PHARM ADDL 15 MIN [id number] Diagnos is: ICD-10- CM F32.A Depress ion, unspeci fied
DANI RUBY D 07/07 [facility] PSYTX W PT 30 MINUTES [id number] Diagnos is: ICD-10- CM F32.A Depress ion, unspeci fied
TEODORA LOPEZ ON A 07/07 [facility] OFF/OP EST DECEMBER X REQ PHY/QHP [id number] Diagnos is: ICD-10- CM Z04.9 Encount er for examina tion and observa tion for unsp reason< br/> DEBBI NINO LLChucky L 07/07 [facility] OFFICE O/P EST MOD 30-39 MIN [id number] Diagnos is: ICD-10- CM J44.1 Chronic obstruc tive pulmona ry disease w (acute) exacerb ation<b r/> DURAI VIVIENSUZETTE PERRY 07/07 [facility] Outpatient Encounter [id number] Diagnos is: ICD-10- CM I10 Essenti al (primar y) hyperte nsion<b r/> DAVID LORA A 07/22 [facility] Outpatient Encounter [id number] 07/22 [facility] MTMS BY PHARM ADDL 15 MIN [id number] Diagnos is: ICD-10- CM F32.A Depress ion, unspeci fied
DANI RUBY 07/23 [facility] PSYTX W PT 30 MINUTES [id number] Diagnos is: ICD-10- CM F41.9 Anxiety disorde r, unspeci fied
TEODORA LOPEZ ON A 07/23 [facility] Out[facility] Encounter [id number] 07/23 [facility] Outpatient Encounter [id number] 07/25 [facility] Outpatient Encounter [id number] 07/26 [facility] HC PRO PHONE CALL 5-10 MIN [id number] Diagnos is: ICD-10- CM I10 Essenti al (primar y) hyperte nsion<b r/> GUIDO, DAVID A 07/26 [facility] OFFICE O/P EST MOD 30-39 MIN [id number] Diagnos is: ICD-10- CM J44.9 Chronic obstruc tive pulmona ry disease , unspeci fied
PARESH,L JOSÉ MIGUEL ESTELLA 07/26 [facility] Out[facility] Encounter [id number] 08/10 [facility] Outpatient Encounter [id number] Diagnos is: ICD-10- CM I10 Essenti al (primar y) hyperte nsion<b r/> GUIDO, DAVID A 08/19 [facility] Outpatient Encounter [id number] 08/20 [facility] HC PRO PHONE CALL 5-10 MIN [id number] Diagnos is: ICD-10- CM I10 Essenti al (primar y) hyperte nsion<b r/> GUIDO, DAVID A 08/20 [facility] MTMS BY PHARM ADDL 15 MIN [id number] Diagnos is: ICD-10- CM F32.A Depress ion, unspeci fied
DANI RUBY D 08/27 [facility] PSYTX W PT 30 MINUTES [id number] Diagnos is: ICD-10- CM F32.A Depress ion, unspeci fied
JOHNALLIS ON A 08/27 [facility] Out[facility] Encounter [id number] 09/09 [facility] Outpatient Encounter [id number] Diagnos is: ICD-10- CM E66.01 Morbid (severe ) obesity due to excess calorie s
ANGELIA QUILES NA L 09/13 [facility] DEBRIDE NAIL 6 OR MORE [id number] Diagnos is: ICD-10- CM B35.1 Tinea unguium
Ezekiel SANCHEZ 09/17 [facility] MTMS BY PHARM ADDL 15 MIN [id number] Diagnos is: ICD-10- CM F32.A Depress ion, unspeci fied
DANI RUBY 09/24 [facility] PSYTX W PT 30 MINUTES [id number] Diagnos is: ICD-10- CM F32.A Depress ion, unspeci fied
JOHNALLIS ON A 09/24 [facility] Out[facility] Encounter [id number] APOLINARYAN Marcial Miguel 10/01 [facility] Outpatient Encounter [id number] 10/08 [facility] Outpatient Encounter [id number] Diagnos is: ICD-10- CM E66.01 Morbid (severe ) obesity due to excess calorie s
ANGELIA QUILES NA L 10/15 [facility] Outpatient Encounter [id number] [facility] MTMS BY PHARM ADDL 15 MIN [id number] Diagnos is: ICD-10- CM F32.A Depress ion, unspeci fied
DANI RUBY 10/28 [facility] Out[facility] Encounter [id number] 10/30 [facility] Outpatient Encounter [id number] ANTONIO GONZALEZ 10/30 [facility] Outpatient Encounter [id number] 10/31 [facility] Outpatient Encounter [id number] 11/01 [facility] OFFICE O/P EST MOD 30 MIN [id number] Diagnos is: ICD-10- CM R05.8 Other specifi ed cough<b r/> Miguel YODER 11/04 [facility] Outpatient Encounter [id number] Diagnos is: ICD-10- CM E66.01 Morbid (severe ) obesity due to excess calorie s
ANGELIA QUILES NA L 11/10 [facility] Out[facility] Encounter [id number] 11/17 [facility] Outpatient Encounter [id number] 11/22 [facility] Outpatient Encounter [id number] 12/08 [facility] Outpatient Encounter [id number] 12/08 [facility] OFFICE O/P EST SF 10 MIN [id number] Diagnos is: ICD-10- CM R49.9 Unspeci fied voice and resonan ce disorde r
NEGRO DIAZ 12/08 [facility] OFF/OP CONSLTJ NEW/EST HI 55 [id number] Diagnos is: ICD-10- CM R49.0 Dysphon ia
MARYCRUZ GALDAMEZ 12/08 [facility] PSYTX W PT 30 MINUTES [id number] [id number] Diagnos is: ICD-10- CM F32.A Depress ion, unspeci fied
TEODORA LOPEZ ON A 12/16 [facility] MTMS BY PHARM ADDL 15 MIN [id number] Diagnos is: ICD-10- CM F32.A Depress ion, unspeci fied
DANI RUBY 12/16 [facility] Out[facility]counter [id number] 12/19 [facility] Outpatient Encounter [id number] SEBASTIEN LUNA 01/02 [facility] Outpatient Encounter [id number] 01/03 [facility] Outpatient Encounter [id number] 01/03 [facility] HC PRO PHONE CALL 5-10 MIN [id number] Diagnos is: ICD-10- CM Z71.89 Other specifi ed social services counselor ing<br/ > PICH,PEPPER H 01/04 [facility] OFFICE O/P EST MOD 30 MIN [id number] Diagnos is: ICD-10- CM M25.511 Pain in right shoulde r
PARESH,L JOSÉ MIGUEL ESTELLA 01/04 [facility] Out[facility] Encounter [id number] 01/19 [facility] Outpatient Encounter [id number] 01/19 [facility] MTMS BY PHARM ADDL 15 MIN [id number] Diagnos is: ICD-10- CM F32.A Depress ion, unspeci fied
DANI RUBY 01/20 [facility] Out[facility] Encounter [id number] 01/25 [facility] Outpatient Encounter [id number] 01/27 [facility] Outpatient Encounter [id number] 02/13 [facility] OFFICE O/P EST MOD 30 MIN [id number] Diagnos is: ICD-10- CM R14.0 Abdomin al distens ion (gaseou s)
PARESH,L JOSÉ MIGUEL ESTELLA 02/15 [facility] TRIM NAIL(S) [id number] Diagnos is: ICD-10- CM L60.3 Nail dystrop hy
ERIK LATHAM 02/17 [facility] MTMS BY PHARM ADDL 15 MIN [id number] Diagnos is: ICD-10- CM F41.9 Anxiety disorde r, unspeci fied
DANI RUBY 03/03 [facility] Out[facility] Encounter [id number] 03/07 [facility] HC PRO PHONE CALL 11-20 MIN [id number] Diagnos is: ICD-10- CM Z71.89 Other specifi ed social services counselor ing<br/ > DEBBI NINO 03/08 [facility] Out[facility] Encounter [id number] 03/15 [facility] En[facility] [id number] 04/06 [facility]counter [id number] 04/14 [facility] Encounter [id number] 04/19 [facility] Out[facility] Encounter [id number] 04/27 [facility] Out[facility] Encounter [id number] 05/01 [facility] MTMS BY PHARM ADDL 15 MIN [id number] Diagnos is: ICD-10- CM F32.A Depress ion, unspeci fied
DANI RUBY 05/05 [facility] En[facility] [id number] 05/12 [facility] Out[facility] Encounter [id number] 05/22 [facility] Out[facility]counter [id number] 05/23 [facility] Out[facility] Encounter [id number] 05/26 [facility] OFF/OP EST DECEMBER X REQ PHY/QHP [id number] Diagnos is: ICD-10- CM Z23 Encount er for immuniz ation<b r/> DEBBI NION LLE L 06/13 [facility] TRIM NAIL(S) [id number] Diagnos is: ICD-10- CM L60.3 Nail dystrop hy
ERIK LATHAM BERNY 06/19 [facility] PSYTX W PT 30 MINUTES [id number] Diagnos is: ICD-10- CM F32.A Depress ion, unspeci fied
TEODORA LOPEZ ON A 06/21 [facility] MTMS BY PHARM ADDL 15 MIN [id number] Diagnos is: ICD-10- CM F32.A Depress ion, unspeci fied
DANI RUBY 06/28 [facility] OFFICE O/P EST MOD 30 MIN [id number] 1. Diagnos is: ICD-10- CM I10 Essenti al (primar y) hyperte nsion<b r/> PARESH,L JOSÉ MIGUEL ESTELLA 07/04 [facility] MANUAL THERAPY /> [place] [id number] Diagnos is: ICD-10- CM M79.601 Pain in right arm<br/ > MACHON,REBEKAH LIE E 07/10 [facility] Outpatient Encounter [id number] 07/12 [facility] PSYTX W PT 30 MINUTES [id number] Diagnos is: ICD-10- CM F32.A Depress ion, unspeci fied
TEODORA LOPEZ ON A 07/25 [facility] Outpatient Encounter [id number] 07/27 [facility] CARLOS ALBERTO MDLTY 1+[place] EA 15 [id number] Diagnos is: ICD-10- CM M79.601 Pain in right arm<br/ > MACHON,REBEKAH LIE E 07/31 [facility] OFFICE O/P EST MOD 30 MIN [id number] Diagnos is: ICD-10- CM M79.651 Pain in right thigh<b r/> PARESH,L JOSÉ MIGUEL ESTELLA 07/31 [facility] Outpatient Encounter [id number] Ezekiel FALK 08/07 [facility] [place] [facility] [place] [facility] OFFICE O/P EST MOD 30 MIN [id number] Diagnos is: ICD-10- CM M79.604 Pain in right leg<br/ > PARESH,L JOSÉ MIGUEL ESTELLA 08/08 [facility] [place] [facility] Social History Combined list of available smoking, tobacco, and other social history from Department of Defense and [facility]. Social History Type Response Date Comment Source Tobacco smoking status NHIS [place]-TO[place] FORMER USER 07/04/2024 [facility] [place] [facility] of [facility]2024 [facility] [place] [place] [facility] of [facility]/07/2023 [facility] [place] [facility] of [facility] 05/07/2022 [facility] [place] [place] [facility] History of tobacco use [place]-TOBACCO FORMER USER 05/15/2021 [facility] [place] [place] [facility] of [facility]2020 [facility] [place] 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 History of tobacco use CURRENT SMOKER 04/21/2018 1/2 pk a week [facility] [place] [facility] History of tobacco use V1-PT NOT INTERESTED IN QUIT TOBACCO USE 10/18/2017 [facility] [place] [place] [facility] History of tobacco use CURRENT SMOKER 10/04/2017 .5 packs a day [facility] [place] [facility] History of tobacco use V1-PT NOT INTERESTED IN QUIT TOBACCO USE 09/18/2013 [facility] History of tobacco use CURRENT SMOKER 11/23/2012 PT smokes 6-8 cigarettes per day. [facility] History of tobacco use V1-PT DECLINES TOBACCO CESSATION MEDS 11/16/2012 [facility] History of tobacco use V1-PT DECLINES TOBACCO CESSATION MEDS 09/27/2011 [facility] History of tobacco use CURRENT SMOKER 12/08/2010 [facility] History of tobacco use CURRENT TOBACCO USER 09/21/2006 [facility] History of tobacco use TOBACCO FORMER USER MORE 12 MONTHS 02/28/2005 [facility] Plan of Care List of future care activities from Department [facility] facilities. Additional future care activities may be listed in the Assessment and Plan section. Date/Time Care Activity Care Activity Detail Facili ty 08/21/2024 AMBULATORY - REHAB MEDICINE AMBULATORY - REHAB MEDICINE [place] [facility] [place] [facility] 08/22/2024 AMBULATORY - MEDICINE [facility] [place] [facility] [place] [facility] 08/29/2024 AMBULATORY - PSYCHIATRY AMBULATORY - PSYC HIATRY [facility] [place] [facility] 08/29/2024 AMBULATORY - PSYCHIATRY AMBULATORY - PSYC HIATRY [facility] [place] [facility] 09/14/2024 AMBULATORY - REHAB MEDICINE AMBULATORY [place]ICINE [place] [facility] [place] [facility] 10/23/2024 AMBULATORY - MEDICINE AMBULATORY [place] [facility]ICI [place] [facility] [place] [facility] 11/01/2024 AMBULATORY - MEDICINE AMBULATORY [place] MEDICI [place] [facility] [place] [facility] 11/28/2024 AMBULATORY - MEDICINE AMBULATORY - MEDICI [place] [facility] [place] [facility] 07/27/2024 Consult Order SURGERY/CWM OUTP T Cons Formal Waiter/Waitress's Choice [place] [facility] [facility] 07/31/2024 Consult Order PHYSICAL THERAPY /NHM OUTPT Cons Formal Waiter/Waitress's Choice [place] [facility] [place] [facility] Advance Directives List of completed, amended, or rescinded Advance Directives on record at Department [facility] facilities. An actual copy of the Directive is not included. Date Advance Directive Provider Source 02/13/2003 ADVANCE DIRECTIVE KAT OVIEDO [facility]
--- OUTSIDE RECORDS SUMMARY | 2024-08-18 13:07 | XMS_ITS | Encounter Summary ---
Author Name [facility] [place] [facility] [place] [facility] [place] Address [address] [place] [address] Care Team Providers Care Commodities Broker Name Role Phone ALEXANDR YODER Primary Care [...] (WNR) MEDICARE ADVANTAGE HUMAN A INSUR ANCE [facility] Mar 23, 2023 [id number] [phone] Ezekiel WILKERSON PATIENT Selected Encounter This section includes the information on record at [place] for the Encounter. Date/Time Encounter Type Encounter Description Reason Provider Source Aug 27, 2023 01:00 PM PSYTX W PT 30 MINUTES [facility] - IND ICD-10-CM F32.A Depression, unspecified BRIA LOPEZ Chucky Encounter Template Text not used by [place] Assessments - Encounter Diagnoses This section includes the primary and secondary diagnoses documented for the Encounter. Date/Time Primary/Secondary Diagnosis Diagnosis Name Provider Source Aug 30, 2023 01:24 PM PRIMARY Depression, unspecified BRIA LOPEZ [facility] Plan of Treatment: Future Appointments (+ 6 months) and Future Tests (+/- 45 days) The Plan of Treatment section includes future care activities for the patient from all [place] treatmentfacilities. This section includes future appointments and future orders which are active, pending or scheduled. Future Appointments This section includes appointments that were scheduled to occur 6 months from the date of the Encounter, up to a maximum of 20 appointments. The data comes from all [place] treatment facilities. Appointment Date/Time Appointment Type Appointme nt Facility Name Sep 17, 2023 11:30 AM AMBULATORY - MEDICINE [place] [facility] [place] [facility] Sep 24, 2023 01:30 PM AMBULATORY - PSYCHIATRY [facility] [place] [facility] Sep 24, 2023 02:00 PM AMBULATORY - PSYCHIATRY [facility] [place] [place] [facility] Oct 29, 2023 01:30 PM AMBULATORY - PSYCHIATRY [facility] [place] [facility] Nov 05, 2023 11:00 AM AMBULATORY [place] MEDICINE [place] [facility] [place] [facility] Nov 08, 2023 02:00 PM AMBULATORY [place]ICINE [place] [facility] [place] [facility] Nov 23, 2023 02:45 PM AMBULATORY [place] MEDICINE [place] [facility] [place] [facility] Dec 09, 2023 01:30 PM AMBULATORY [place] MEDICINE [place] [facility] [place] [facility] Dec 09, 2023 03:00 PM AMBULATORY - MEDICINE [place] [facility] [place] [facility] Dec 17, 2023 01:00 PM AMBULATORY - PSYCHIATRY [facility] [place] [facility] Dec 17, 2023 01:30 PM AMBULATORY [place]IATRY [place] [facility] [place] [facility] January 05, 2024 11:30 AM AMBULATORY [place]ICINE [place] [facility] [place] [facility] January 21, 2024 01:30 PM AMBULATORY - PSYCHIATRY [facility] [place] [facility] Feb 16, 2024 01:30 PM AM[place]ULATORY [place]ICINE [place] [facility] [place] [facility] Feb 18, 2024 03:00 PM AM[place]ULATORY [place]ICINE [place] [facility] [place] [facility] Social History: Smoking Status (Most current) and Tobacco Use (All prior to encounter date) This section includes the most current, and the historical, smoking and tobacco- related health factors from the [place] facility where the Encounter took place. Current Smoking Status This section includes the most current smoking, or tobacco-related health factor, from the [place] facility where the Encounter took place. Date/Time Current Smoking Status Comment [facility] it Apr 07, 2023 01:30 PM VA-TOBACCO QUIT 5 TO < 15 YRS [place] [facility] Tobacco Use History This section includes a history of the smoking, or tobacco-related health factors, that were collected on or before the date of the Encounter. The data comes from the [place] facility where the Encounter took place. Date/Time Smoking Status/Tobac co Use Comment [facility] Apr 07, 2023 01:30 PM VA-TOBACCO QUIT 5 TO < 15 YRS [place] [facility] [place] [facility] May 07, 2022 09:30 AM VA-TOBACCO FORMER USER [place] [facility] [place] [facility] May 07, 2022 09:30 AM VA-TOBACCO QUIT 1 TO < 5 YRS [place] [facility] [place] [facility] May 15, 2021 08:45 AM VA-TOBACCO FORMER USER [place] [facility] [facility] May 15, 2021 08:45 AM VA-TOBACCO QUIT 1 TO < 5 YRS [place] [facility] [place] [facility] Jun 04, 2020 10:30 AM VA-TOBACCO FORMER USER [place] [facility] [place] [facility] Jun 04, 2020 10:30 AM VA-TOBACCO QUIT < 1 YEAR [place] [facility] [facility] May 23, 2019 09:36 AM VA-TOBACCO DOESNT USE WI 30 MIN WAKEUP [place] [facility] [facility] May 23, 2019 09:36 AM VA-TOBACCO USE 30 YEARS OR MORE [place] [facility] [facility] May 23, 2019 09:36 AM VA-TOBACCO USE ADVICE [place] [facility] [facility] May 23, 2019 09:36 AM VA-TOBACCO USE 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 [place] [facility] [facility] May 23, 2019 09:36 AM VA-TOBACCO USE MED NO [place] [facility] [place] [facility] May 23, 2019 09:36 AM VA-TOBACCO USER EVERY DAY [place] [facility] [place] [facility] Apr 21, 2018 01:18 PM CURRENT SMOKER 1/2 pk a week [place] [facility] [place] [facility] Apr 21, 2018 01:18 PM V1-PT DECLINES REF TO TOBACCO CESS PRGM [facility] Apr 21, 2018 01:18 PM V1-PT DECLINES TOB ACCO CESSATION MEDS [facility] Apr 21, 2018 01:18 PM V1-PT THINKING ABO UT QUIT TOBACCO USE [facility] Oct 18, 2017 02:19 PM V1-PT NOT INTEREST ED IN QUIT TOBACCO USE [facility] Oct 04, 2017 01:55 PM CURRENT SMOKER .5 packs a day [facility] Advance Directives: All historical and current Section Date Range: From patient's date of to the date document was created. This section includes ALL of a patient's completed or amended [place] Advance and Rescinded Directives. The entries below indicate that a directive exists for the patient, but an actual copy is not included with this document. The data comes from all [place] facilities. Date Advance Directives Provider Source Feb 13, 2003 ADVANCE DIRECTIVE KAT OVIEDO [facility] Encounter Notes: All associated encounter notes This section contains the clinical notes associated to the Encounter. Date/Time Encounter Note(s) Provider Source Aug 27, 2023 01:20 PM PSYCHOLOGY NOTE: LOCAL TITLE: PSYCHOLOGY NOTE STANDARD TITLE: PSYCHOLOGY NOTE DATE OF NOTE: AUG 27, 2023@13:20 ENTRY DATE: AUG 27, 2023@13:20:23 AUTHOR: BRIA LOPEZ COSIGNER: URGENCY: STATUS: COMPLETED Date of session: Aug Duration of session: 25 Diagnosis: Depression Presenting Problem ( report): Says he was mostly in bed over [place] and New Years, says it's often a tough time for him, more so this year. I believe he's lonely, and apprehensive about being with people in case they cool on him at some point. Did text with Nadege, and is considering a day trip to [facility] to see her and his old haunts. Course of Session: I don't think I'll be much better until Spring. Hasn't been getting out - even to a neighbor who invited him for a holiday meal. Says his weight is the highest ever. Waiting to hear back on school loan issue. Worried about heart and lung function - work-up in process. Specific mental health/clinical interventions: Supportive meeting. No elevated risk is noted. Mental Status/Clinical Impression: 1. Appearance (grooming, attire, apparent age) within normal limits: Yes 2. Thought content was organized and goal directed: Yes 3. Speech was coherent and unimpaired: Yes 4. Affect was appropriate and unremarkable: Somewhat depressed 5. Demeanor was calm, with no signs of agitation or restlessness: Yes 6. Problems with sleep or appetite reported: Sleep cycle is messed up from spending so much time in bed. 7. Psychosis (hallucinations or delusions): No Client's response to interventions: Plans, next steps, and/or clinical decisions: Date of next planned contact: /herlinda/ BRIA LOPEZ, PhD Clinical Psychologist Signed: 08/30/2023 13:24 BRIA LOPEZ [place] [facility]
--- OUTSIDE RECORDS SUMMARY | 2024-08-18 13:07 | XMS_ITS ---
Author Name [facility] [place] [facility] [place] [facility] [place] Address [address] [place] [address] Care Team Providers Care Special Population Paraprofessional Name Role Phone ALEXANDR YODER Primary Care [...] Name Patient's Relationship to Policy [place] [facility] [facility] (WNR) MEDICARE ADVANTAGE HUMAN [facility] Mar 23, 2023 [id number] [phone] Ezekiel WILKERSON PATIENT Selected Encounter This section includes the information on record at CT for the Encounter. Date/Time Encounter Type Encounter Description Reason Provider Source Aug 27, 2023 12:30 PM MTMS BY LIZZ NATHAN [facility] - IND ICD-10-CM F32.A Depression, unspecified RAGUINDIN,JASP ER YOAN D E Encounter Template Text not used by CT Assessments - Encounter Diagnoses This section includes the primary and secondary diagnoses documented for the Encounter. Date/Time Primary/Secondary Diagnosis Diagnosis Name Provider Source Aug 27, 2023 12:49 PM PRIMARY Depression, unspecified RAGUINDIN,JASP ER YOAN D [facility] [place] [facility] Aug 27, 2023 12:49 PM SECONDARY Anxiety disorder, unspecified RAGUINDIN,JASP ER YOAN D [facility] [place] [facility] Plan of Treatment: Future Appointments (+ 6 months) and Future Tests (+/- 45 days) The Plan of Treatment section includes future care activities for the [facility] This section includes future appointments and future orders which are active, pending or scheduled. Future Appointments This section includes appointments that were scheduled to occur 6 months from the date of the Encounter, up to a maximum of 20 appointments. The data comes from all [place] treatment facilities. Appointment Date/Time Appointment Type Appointme nt Facility Name Sep 17, 2023 11:30 AM AMBULATORY - MEDICINE [facility] [place] [facility] Sep 24, 2023 01:30 PM AMBULATORY - PSYCHIATRY [facility] [place] [facility] Sep 24, 2023 02:00 PM AMBULATORY - PSYCHIATRY [facility] [place] [facility] Oct 29, 2023 01:30 PM AMBULATORY - PSYCHIATRY [facility] [place] [facility] Nov 05, 2023 11:00 AM AMBULATORY - MEDICINE [facility] [place] [facility] Nov 08, 2023 02:00 PM AMBULATORY - MEDICINE [facility] [place] [facility] Nov 23, 2023 02:45 PM AMBULATORY - MEDICINE [facility] [place] [facility] Dec 09, 2023 01:30 PM AMBULATORY - MEDICINE [facility] [place] [facility] Dec 09, 2023 03:00 PM AMBULATORY - MEDICINE [facility] [place] [facility] Dec 17, 2023 01:00 PM AMBULATORY - PSYCHIATRY [facility] [place] [facility] Dec 17, 2023 01:30 PM [facility] [place] [facility] January 05, 2024 11:30 AM AMBULATORY - MEDICINE [facility] [place] [facility] January 21, 2024 01:30 PM [facility]UL[facility] [place] [facility] Feb 16, 2024 01:30 PM AMBULATORY - MEDICINE [facility] [place] [facility] Feb 18, 2024 03:00 PM AMBULATORY - MEDICINE [facility] [place] [facility] Social History: Smoking Status (Most current) and Tobacco Use (All prior to encounter date) This section includes the most current, and the historical, smoking and tobacco- related health factors from the [place] facility where the Encounter took place. Current Smoking Status This section includes the most current smoking, or tobacco-related health factor, from the [place] facility where the Encounter took place. Date/Time Current Smoking Status Comment Facil it Apr 07, 2023 01:30 PM VA-TOBACCO FORMER USER [facility] [place] [facility] Tobacco Use History This section includes a history of the smoking, or tobacco-related health factors, that were collected on or before the date of the Encounter. The data comes from the [place] facility where the Encounter took place. Date/Time Smoking Status/Tobac co Use Comment Facility Apr 07, 2023 01:30 PM VA-TOBACCO QUIT 5 TO < 15 YRS [facility] [place] [facility] May 07, 2022 09:30 AM VA-TOBACCO FORMER USER [facility] [place] [facility] May 07, 2022 09:30 AM VA-TOBACCO QUIT 1 TO < 5 YRS [facility] [place] [facility] May 15, 2021 08:45 AM VA-TOBACCO FORMER USER [facility] [place] [facility] May 15, 2021 08:45 AM VA-TOBACCO QUIT 1 TO < 5 YRS [facility] [place] [facility] Jun 04, 2020 10:30 AM VA-TOBACCO FORMER USER [facility] [place] [facility] Jun 04, 2020 10:30 AM VA-TOBACCO QUIT < [address] [facility] [place] [facility] May 23, 2019 09:36 AM VA-TOBACCO DOESNT USE WI [address] [facility] [place] [facility] May 23, 2019 09:36 AM VA-TOBACCO USE 30 YEARS OR MORE [facility] [place] [facility] May 23, 2019 09:36 AM VA-TOBACCO USE ADVICE [facility] [place] [facility] May 23, 2019 09:36 AM VA-TOBACCO USE HOMICIDE SQUAD LIEUTENANT NO [facility] [place] [facility] May 23, 2019 09:36 AM VA-TOBACCO USE MED NO [facility] [place] [facility] May 23, 2019 09:36 AM VA-TOBACCO USER EVERY DAY [facility] [place] [facility] Apr 21, 2018 01:18 PM CURRENT SMOKER 1/2 pk a week [facility] Apr 21, 2018 01:18 PM V1-PT DECLINES REF TO TOBACCO CESS PRGM [facility] Apr 21, 2018 01:18 PM V1-PT DECLINES TOB ACCO CESSATION MEDS [facility] Apr 21, 2018 01:18 PM V1-PT THINKING ABO UT QUIT TOBACCO USE [facility] Oct 18, 2017 02:19 PM V1-PT NOT INTEREST ED IN QUIT TOBACCO USE [facility] Oct 04, 2017 01:55 PM CURRENT SMOKER .5 packs a day [facility] Advance Directives: All historical and current Section Date Range: From patient's date of to the date document was created. This section includes ALL of a patient's completed or amended CT Advance and Rescinded Directives. The entries below indicate that a directive exists for the patient, but an actual copy is not included with this document. The data comes from all [place] facilities. Date Advance Directives Provider Source Feb 13, 2003 ADVANCE DIRECTIVE KAT OVIEDO [facility] Encounter Notes: All associated encounter notes This section contains the clinical notes associated to the Encounter. Date/Time Encounter Note(s) Provider Source Aug 27, 2023 12:26 PM PHARMACY MEDICATION MGT NOTE: LOCAL TITLE: CLINICAL PHARMACIST F/U NOTE STANDARD TITLE: PHARMACY MEDICATION MGT NOTE DATE OF NOTE: AUG 27, 2023@12:26 ENTRY DATE: AUG 27, 2023@12:26:49 AUTHOR: OLMAN AGUILAR COSIGNER: URGENCY: STATUS: COMPLETED Program: Clinical Pharmacy Provider/Medication Management Speciality: Mental Health ATTENDED BY: [X] Patient [ ] Spouse/Caregiver LENGTH OF SESSION: 30minutes -=-=-=-=-=-=-=-=-=-=-=-=-=-=- =-=-=-=-=-==-=-=-=-=-=-=-=-=- =-=-=-=-=-=-=-=-=-=-=- Name: ANDRZEJ WILKERSON : Mar ID: 68yo WHITE MALE -=-=-=-=-=-=-=-=-=-=-=-=-=-=- =-=-=-=-=-==-=-=-=-=-=-=-=-=- =-=-=-=-=-=Subjective- was last seen on [id number] with the following pharmacotherapeutic plan: [ ] No changes [ ] Discontinue: [ ] Initiate: [X] Change the following: increase buspirone to 10mg bid Treating Dx(s): Depression INTERIM HISTORY pt reports staying to himself for the holidays, despite being invited to several events. states I didn't do anything. mentions being put on a new inhaler for COPD, and today expressed concern about his weight, stating I've never weighed this much before... explains making a lot of plans in the morning, but then instead of following through he goes to bed instead. gets angry with all of the bad news. notes some relief in an increase in dose of buspirone, but lost the benefits with and . discussed trialing an increase in dose. medication education provided, to which the pt provided verbal understanding and agreed to the plan. -=-=-=-=-=-=-=-=-=-=-=-=-=-=- =-=-=-=-=-==-=-=-=-=-=-=-=-=- =-=-=-=-=-=-Objective- Mental Status Exam Appearance: [X] Unremarkable [X] Appropriate to season [ ] Neatly groomed [ ] Somewhat disheveled [ ] Other: Behavior Mood/Affect: [X] Appropriate [ ] Irritable [ ] Normal [ ] Euphoric [ ] Pleasant [ ] Provocative [ ] Bright [x] Depressed [ ] Anxious [ ] Frustrated [ ] Anxious [ ] Frustrated [ ] Maintained good eye contact [ ] Restricted [ ] Flat [ ] Other: [ ] Subdued [ ] Unremarkable [ ] Responsive & Congruent w/mood Energy: [ ] Other: [X] Normal [ ] Excessive [ ] Lethargic [ ] Variable Sleep: [ ] Other: [X] Normal [ ] Early awakening [ ] Sleep onset insomnia -N--Y- Orientation to: [ ] Frequent disruption [ ][X] Person [ ][X] [...] 6. Supraventricular tachycardia 7. HTN - Hypertension (SCT [id number]) 8. Anxiety disorder 9. H/O: gastric ulcer [...] (including Supplies): Active Outpatient Medications Status 1) ACETAMINOPHEN 325MG TAB TAKE TWO TABLETS BY MOUTH ACTIVE THREE TIMES DAILY NEEDED FOR PAIN 2) ALBUTEROL SO4 0.083% INHL 3ML INHALE 1 AMPULE IN ACTIVE NEBULIZER EVERY 6 HOURS NEEDED FOR BREATHING 3) AMLODIPINE BESYLATE 10MG TAB TAKE ONE TABLET BY MOUTH ACTIVE ONCE DAILY FOR BLOOD PRESSURE/HEART, DO NOT TAKE WITH GRAPEFRUIT JUICE NOTE NEW TABLET STRENGTH/INCREASED DOSE 4) ASPIRIN 325MG EC TAB TAKE ONE TABLET BY MOUTH ONCE ACTIVE DAILY TO PREVENT STROKE/HEART ATTACK 5) BUSPIRONE HCL 10MG TAB TAKE ONE TABLET BY MOUTH TWICE ACTIVE DAILY FOR ANXIETY 6) CETIRIZINE HCL 10MG TAB TAKE ONE TABLET BY MOUTH ONCE ACTIVE DAILY FOR ALLERGIES 7) CLOTRIMAZOLE 1% TOP SOLN APPLY DIRECTED TOPICALLY ACTIVE ONCE DAILY FOR FUNGAL INFECTION 8) CYANOCOBALAMIN 1000MCG TAB TAKE ONE TABLET BY MOUTH ACTIVE ONCE DAILY FOR VITAMIN SUPPLEMENTATION 9) ESCITALOPRAM OXALATE 20MG TAB TAKE ONE TABLET BY ACTIVE MOUTH ONCE DAILY FOR MOOD/DEPRESSION 10) FLUTICAS 100/SALMETEROL 50 INHL DISK 60 INHALE 1 PUFF ACTIVE BY MOUTH TWICE DAILY - RINSE MOUTH AFTER USE 11) LEVOTHYROXINE NA (SYNTHROID) 150MCG TAB TAKE ONE ACTIVE TABLET BY MOUTH EVERY MORNING 30 MINUTES BEFORE BREAKFAST FOR THYROID - TAKE ON AN EMPTY STOMACH WITH A FULL GLASS OF WATER 12) LIDOCAINE 5% PATCH APPLY 1 PATCH TOPICALLY ONCE DAILY ACTIVE NEEDED FOR NERVE PAIN (LEAVE PATCH ON FOR 12 HOURS, THEN REMOVE PATCH) 13) OMEPRAZOLE 20MG EC CAP TAKE ONE CAPSULE BY MOUTH ACTIVE (S) EVERY MORNING 30 MINUTES BEFORE BREAKFAST 14) TRAZODONE HCL 50MG TAB TAKE ONE-HALF TABLET BY MOUTH ACTIVE AT BEDTIME NEEDED FOR SLEEP Active Non-VA Medications Status 1) Non-VA OTHER CAP/TAB BY MOUTH ACTIVE 15 Total Medications Past psychiatric medications include the following: [X] Per CPRS: - citalopram ([id number]) - escitalopram (2022-) - sertraline (2020) - trazodone () [ ] Per Patient: Vitals: Ht: 65 in [165.1 cm] (07/26/2023 14:01) Wt: 270 lb [122.47 kg] (07/26/2023 14:01) BMI: 45.0 BP: 130/83 (07/26/2023 14:01) HR: 82 (07/26/2023 14:01) Labs: CHEM 7 TREND LAB CUMULATIVE SELECTED [...] following review of all active psychotropic and PUMP ATTENDANT-active agents is to ensure pharmacotherapy is evaluated for safety and efficacy as they relate to behaviorial and physiological changes and outcomes Depression w/ possible seasonal component - escitalopram 20mg daily - trazodone 25mg hs prn sleep - buspirone 10mg bid > tolerating; will titrate to effect PLAN 1. Pharmacotherapy [ ] No changes [ ] Discontinue: [ ] Initiate: [X] Change the following: increase buspirone to 15mg bid 2. Labs/tests: n/a 3. Consult(s) or Coordination of [...] Other: RTC Interval: every 4-6weeks Next Apt: [id number] was provided commercial real estate underwriter's contact information and instructed to contact commercial real estate underwriter as needed for any changes to scheduling or concerns otherwise. is aware of actions to take if they feel unsafe, including calling the 's Crisis Line (#[phone]); calling 911; or going to the nearest urgent care or emergency room. The is also aware of how to contact the clinic should the require additional services prior to the next appointment. Time spent on chart review, session, and documentation: 30minutes /es/ Olman Aguilar PharmD Clinical Pharmacist Practitioner Signed: 09/01/2023 09:35 OLMAN [facility]ILAR [facility]
--- OUTSIDE RECORDS SUMMARY | 2024-08-18 13:07 | XMS_ITS | Encounter Summary ---
Author Name [facility] [place] [facility] [place] Address [address] [place] [address] Care Team Providers Care Correspondence Analyst Name Role Phone ALEXANDR YODER Primary Care [...] (WNR) MEDICARE ADVANTAGE HUMAN A INSUR ANCE [facility] Mar 23, 2023 [id number] [phone] Ezekiel WILKERSON PATIENT Selected Encounter This section includes the information on record at [place] for the Encounter. Date/Time Encounter Type Encounter Description Reason Provider Source Aug 20, 2023 01:51 PM HC PRO PHONE CALL 5-10 MIN TELEPHONE PRIMARY CARE ICD-10-CM I10 Essential (primary) hypertension MARY LORA [facility] Encounter Template Text not used by [place] Assessments - Encounter Diagnoses This section includes the primary and secondary diagnoses documented for the Encounter. Date/Time Primary/Secondary Diagnosis Diagnosis Name Provider Source Aug 20, 2023 01:51 PM PRIMARY Essential (primary) hypertension [place] [facility] Aug 20, 2023 01:51 PM SECONDARY Other obesity MARY LORA [place] [facility] Plan of Treatment: Future Appointments (+ 6 months) and Future Tests (+/- 45 days) The Plan of Treatment section includes future care activities for the [facility] [place] [facility] This section includes future appointments and future orders which are active, pending or scheduled. Future Appointments This section includes appointments that were scheduled to occur 6 months from the date of the Encounter, up to a maximum of 20 appointments. The data comes from all [place] treatment facilities. Appointment Date/Time Appointment Type Appointme nt Facility Name Aug 27, 2023 12:30 PM [facility] Aug 27, 2023 01:00 PM AMBULATORY [facility] Sep 17, 2023 11:30 AM [facility]UL[facility] Sep 24, 2023 01:30 PM AMBULATORY [facility] Sep 24, 2023 02:00 PM AMBULAT[facility] Oct 29, 2023 01:30 PM AMBUL[facility] Nov 05, 2023 11:00 AM [facility] Nov 08, 2023 02:00 PM [facility]UL[facility] Nov 23, 2023 02:45 PM [facility] Dec 09, 2023 01:30 PM [facility] Dec 09, 2023 03:00 PM [facility] Dec 17, 2023 01:00 PM AMBULATORY [facility] PS[facility] Dec 17, 2023 01:30 PM AMBUL[facility] January 05, 2024 11:30 AM [facility] January 21, 2024 01:30 PM AMBULATORY - PS[facility] Feb 16, 2024 01:30 PM [facility] Feb 18, 2024 03:00 PM AMBULATORY - MEDICINE [facility] Lab Results: +/- 30 days of the encounter This section includes the Chemistry and Hematology Lab Results on record with [place] for the patient. Radiology Reports and Pathology Reports are provided separately, in subsequent sections. Lab Results This section contains the Chemistry/Hematology Results that were resulted 30 days before or 30 daysafter the date of the Encounter. Date/Time Source Result Type Result - Unit Interpretation Reference Range Comment Jul 26, 2023 02:46 PM [facility] THYROID TOTAL T4 Specimen Type: SERUM No comment entered. Ordering Provider: ALEXANDR YODER Report Released Date/Time: Jul 26, 2023 02:22 PM Reporting Lab: [facility] [address] [facility] [address] Performing Lab: [facility] [address] [facility] [address] THYROID TOTAL T4 9.71 ug/dL 4.5-12.0 Jul 26, 2023 02:46 PM [facility] TSH Specimen Type: SERUM No comment entered. Ordering Provider: ALEXANDR YODER Report Released Date/Time: Jul 26, 2023 02:22 PM Reporting Lab: [facility] [address] [facility] [address] Performing Lab: [address] [address] TSH 0.55 u[IU]/mL 0.35-5.00 Social History: Smoking Status (Most current) and Tobacco Use (All prior to encounter date) This section includes the most current, and the historical, smoking and tobacco- related health factors from the [place] facility where the Encounter took place. Current Smoking Status This section includes the most current smoking, or tobacco-related health factor, from the [place] facility where the Encounter took place. Date/Time Current Smoking Status Comment Facil ity Apr 07, 2023 01:30 PM VA-TOBACCO QUIT 5 TO < 15 YRS [facility] Tobacco Use History This section includes a history of the smoking, or tobacco-related health factors, that were collected on or before the date of the Encounter. The data comes from the [place] facility where the Encounter took place. Date/Time Smoking Status/Tobac co Use Comment Facility Apr 07, 2023 01:30 PM VA-TOBACCO QUIT 5 TO < 15 YRS [place] [facility] May 07, 2022 09:30 AM VA-TOBACCO FORMER USER [facility] May 07, 2022 09:30 AM VA-TOBACCO QUIT 1 TO < 5 YRS [facility] May 15, 2021 08:45 AM VA-TOBACCO FORMER USER [place] [facility] May 15, 2021 08:45 AM VA-TOBACCO QUIT 1 TO < 5 YRS [place] [facility] Jun 04, 2020 10:30 AM VA-TOBACCO FORMER USER [place] [facility] Jun 04, 2020 10:30 AM VA-TOBACCO QUIT < 1 YEAR [place] [facility] May 23, 2019 09:36 AM VA-TOBACCO DOESNT USE WI 30 MIN WAKEUP [place] [facility] May 23, 2019 09:36 AM VA-TOBACCO USE 30 YEARS OR MORE [place] [facility] May 23, 2019 09:36 AM VA-TOBACCO USE ADVICE [place] [facility] May 23, 2019 09:36 AM 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 [place] [facility] May 23, 2019 09:36 AM VA-TOBACCO USE MED NO [place] [facility] May 23, 2019 09:36 AM VA-TOBACCO USER EVERY DAY [place] [facility] Apr 21, 2018 01:18 PM CURRENT SMOKER 1/2 pk a week [place] [facility] Apr 21, 2018 01:18 PM V1-PT DECLINES REF TO TOBACCO CESS PRGM [place] [facility] Apr 21, 2018 01:18 PM V1-PT DECLINES TOB ACCO CESSATION MEDS [place] [facility] Apr 21, 2018 01:18 PM V1-PT THINKING ABO UT QUIT TOBACCO USE [place] [facility] Oct 18, 2017 02:19 PM V1-PT NOT INTEREST ED IN QUIT [facility] Oct 04, 2017 01:55 PM CURRENT SMOKER .5 packs a day [facility] Advance Directives: All historical and current Section Date Range: From patient's date of to the date document was created. This section includes ALL of a patient's completed or amended [place] Advance and Rescinded Directives. The entries below indicate that a directive exists for the patient, but an actual copy is not included with this document. The data comes from all [place] facilities. Date Advance Directives Provider Source Feb 13, 2003 ADVANCE DIRECTIVE KAT OVIEDO [facility] Encounter Notes: All associated encounter notes This section contains the clinical notes associated to the Encounter. Date/Time Encounter Note(s) Provider Source Aug 20, 2023 01:57 PM ADDENDUM: LOCAL TITLE: Addendum STANDARD TITLE: ADDENDUM DATE OF NOTE: AUG 20, 2023@13:57:17 ENTRY DATE: AUG 20, 2023@13:57:17 AUTHOR: DAVID LORA EXP COSIGNER: URGENCY: STATUS: COMPLETED [place] [facility] d/c from HT/RPM program for management of HTN using [employer] equipment. Retrieval kit sent. /herlinda/ DAVID LORA RN HOME TELEHEALTH DISTRIBUTION SALES REPRESENTATIVE Signed: 08/20/2023 13:57 Receipt Acknowledged By: 08/25/2023 14:59 /herlinda/ ALEXANDR SILVERIO TELEHEALTH FIELD APPLICATION ENGINEER ====== --- Original Document --- 08/20/23 HT DISCHARGE NOTE: HOME TELEHEALTH (HT) DISCHARGE NOTE Dates of enrollment: 03/24/2022 Ht Enrollment-Start Date 03/24/2022 Ht Clinical Reason For Enrollment HTN & WT management To: Date: August 20, 2023 HT PROGRAM DIAGNOSIS(ES): Hypertension Other: Weight Management Summary of Program Enrollment/Participation : Spoke with and reviewed BP goals. [facility] in agreement to utilize personal BP cuff and independently monitor. [facility] verbalized understanding to contact clinical contact center with non urgent/emergent questions/concerns. verbalized understanding of acute cardiac symptoms and when to seek emergency care. Reviewed retreival kit and return process with and notified to contact CC with questions/concerns. would like to enroll in TeleMOVE program to aid in weight loss goals. ANDRZEJ WILKERSON (-[phone]) Vital Sign for: 07/22/2023 - 08/20/2023 (All times are EST; All weights are lbs) Primary DMP: VHA-Wt Mgmt Comorbid(s): HTN Summary Weight Sys BP Fernando BP HR High 265.8 149 97 79 Low 256.4 116 75 62 Average 261.3 130 85 71 Date Time Wt Time Sys Fernando Time HR ==== 08/20/2023 05:50 263.8 05:49 132/95 05:49 70 08/19/2023 05:08 262.4 05:07 131/86 05:07 72 08/18/2023 12:33 258.3 12:32 133/89 12:32 70 08/17/2023 05:37 262.1 05:36 135/87 05:36 76 08/16/2023 11:05 261.7 11:04 119/81 11:04 79 08/15/2023 10:51 260.9 10:50 131/90 10:50 78 08/14/2023 05:42 265.1 05:41 135/82 05:41 73 08/13/2023 06:59 260.1 06:58 124/85 06:58 77 08/12/2023 11:15 259.2 11:14 116/79 11:14 72 08/11/2023 09:36 258.4 09:36 133/81 09:36 72 08/10/2023 06:50 259.7 06:49 132/79 06:49 70 08/09/2023 11:56 260.4 11:55 137/88 11:55 78 08/08/2023 11:12 258.5 11:11 124/84 11:11 74 08/07/2023 08:49 260.8 08:48 140/83 08:48 68 08/06/2023 09:59 260.7 09:58 136/78 09:58 71 08/05/2023 08:51 257.1 08:50 133/87 08:50 79 08/04/2023 09:00 256.9 08:59 126/85 08:59 73 08/03/2023 08:49 259.3 08:48 126/85 08:48 69 08/02/2023 12:04 256.4 12:03 118/85 12:03 70 08/01/2023 10:55 262.2 10:54 119/75 10:54 63 07/31/2023 09:27 259.8 09:26 119/90 09:26 62 07/30/2023 10:11 262.8 10:10 121/82 10:10 63 07/29/2023 09:59 263.0 09:59 137/86 09:59 66 07/28/2023 08:11 264.6 08:10 134/85 08:10 70 07/27/2023 07:24 265.5 07:23 120/80 07:23 68 07/26/2023 09:10 265.8 09:09 149/97 09:09 74 07/25/2023 09:33 264.2 09:33 130/86 09:33 63 07/24/2023 11:08 258.7 11:07 129/84 11:07 66 07/23/2023 11:06 263.8 11:05 143/84 11:05 71 07/22/2023 05:06 265.3 05:05 135/91 05:05 68 Source: [employer]; [employer] System REASON FOR DISCHARGE: Has met goals; no longer needs services /Caregiver verbalizes understanding of the reason(s) for discharge: Yes Questions and concerns have been addressed: Yes Technology inactivated as appropriate on [place] (ROES) and Vendor systems: Yes FOLLOW-UP: Referred to Primary Care and provider Other: interested in TeleMove TYPE OF ENCOUNTER: Telephone Length of call: 5-10 minutes meeting BP goals consistently on HT/RPM program and agreeable to self monitor using personal BP cuff. [facility] would like to be enrolled in TeleMOVE program to aid in his weight loss goals. Please enter TeleMOVE consult. /herlinda/ DAVID LORA RN HOME TELEHEALTH DISTRIBUTION SALES REPRESENTATIVE Signed: 08/20/2023 13:57 Receipt Acknowledged By: 08/20/2023 14:55 /herlinda/ JR JOSEPH Nurse Practitioner DAVID LORA [place] [facility] Aug 20, 2023 01:51 PM CARE COORDINATION HOME TELEHEALTH DISCHARGE NOTE: LOCAL TITLE: HT DISCHARGE NOTE STANDARD TITLE: CARE COORDINATION HOME TELEHEALTH DISCHARGE NOTE DATE OF NOTE: AUG 20, 2023@13:51 ENTRY DATE: AUG 20, 2023@13:52:04 AUTHOR: DAVID LORA EXP COSIGNER: URGENCY: STATUS: COMPLETED HT DISCHARGE NOTE Has ADDENDA HOME TELEHEALTH (HT) DISCHARGE NOTE Dates of enrollment: 03/24/2022 Ht Enrollment-Start Date 03/24/2022 Ht Clinical Reason For Enrollment HTN & WT management To: Date: August 20, 2023 HT PROGRAM DIAGNOSIS(ES): Hypertension Other: Weight Management Summary of Program Enrollment/Participation : Spoke with and reviewed BP goals. in agreement to utilize personal BP cuff and independently monitor. verbalized understanding to contact clinical contact center with non urgent/emergent questions/concerns. verbalized understanding of acute cardiac symptoms and when to seek emergency care. Reviewed retreival kit and return process with and notified to contact [facility] with questions/concerns. [facility] would like to enroll in TeleMOVE program to aid in weight loss goals. ANDRZEJ WILKERSON (-[id number]) Vital Sign for: 07/22/2023 - 08/20/2023 (All times are EST; All weights are lbs) Primary DMP: VHA-Wt Mgmt Comorbid(s): HTN Summary Weight Sys BP Fernando BP HR High 265.8 149 97 79 Low 256.4 116 75 62 Average 261.3 130 85 71 Date Time Wt Time Sys Fernando Time HR ==== 08/20/2023 05:50 263.8 05:49 132/95 05:49 70 08/19/2023 05:08 262.4 05:07 131/86 05:07 72 08/18/2023 12:33 258.3 12:32 133/89 12:32 70 08/17/2023 05:37 262.1 05:36 135/87 05:36 76 08/16/2023 11:05 261.7 11:04 119/81 11:04 79 08/15/2023 10:51 260.9 10:50 131/90 10:50 78 08/14/2023 05:42 265.1 05:41 135/82 05:41 73 08/13/2023 06:59 260.1 06:58 124/85 06:58 77 08/12/2023 11:15 259.2 11:14 116/79 11:14 72 08/11/2023 09:36 258.4 09:36 133/81 09:36 72 08/10/2023 06:50 259.7 06:49 132/79 06:49 70 08/09/2023 11:56 260.4 11:55 137/88 11:55 78 08/08/2023 11:12 258.5 11:11 124/84 11:11 74 08/07/2023 08:49 260.8 08:48 140/83 08:48 68 08/06/2023 09:59 260.7 09:58 136/78 09:58 71 08/05/2023 08:51 257.1 08:50 133/87 08:50 79 08/04/2023 09:00 256.9 08:59 126/85 08:59 73 08/03/2023 08:49 259.3 08:48 126/85 08:48 69 08/02/2023 12:04 256.4 12:03 118/85 12:03 70 08/01/2023 10:55 262.2 10:54 119/75 10:54 63 07/31/2023 09:27 259.8 09:26 119/90 09:26 62 07/30/2023 10:11 262.8 10:10 121/82 10:10 63 07/29/2023 09:59 263.0 09:59 137/86 09:59 66 07/28/2023 08:11 264.6 08:10 134/85 08:10 70 07/27/2023 07:24 265.5 07:23 120/80 07:23 68 07/26/2023 09:10 265.8 09:09 149/97 09:09 74 07/25/2023 09:33 264.2 09:33 130/86 09:33 63 07/24/2023 11:08 258.7 11:07 129/84 11:07 66 07/23/2023 11:06 263.8 11:05 143/84 11:05 71 07/22/2023 05:06 265.3 05:05 135/91 05:05 68 Source: [employer]; [employer] System REASON FOR DISCHARGE: Has met goals; no longer needs services [facility]/Caregiver verbalizes understanding of the reason(s) for discharge: Yes Questions and concerns have been addressed: Yes Technology inactivated as appropriate on [place] (ROES) and Vendor systems: Yes FOLLOW-UP: Referred to Primary Care and provider Other: interested in TeleMove TYPE OF ENCOUNTER: Telephone Length of call: 5-10 minutes [facility] meeting BP goals consistently on HT/RPM program and agreeable to self monitor using personal BP cuff. [facility] would like to be enrolled in TeleMOVE program to aid in his weight loss goals. Please enter TeleMOVE consult. /stefania LORA RN HOME TELEHEALTH DISTRIBUTION SALES REPRESENTATIVE Signed: 08/20/2023 13:57 Receipt Acknowledged By: 08/20/2023 14:55 /herlinda/ JR JOSEPH Nurse Practitioner 08/20/2023 ADDENDUM STATUS: COMPLETED [facility] d/c from HT/RPM program for management of HTN using [employer] equipment. Retrieval kit sent. /stefania LORA RN HOME TELEHEALTH DISTRIBUTION SALES REPRESENTATIVE Signed: 08/20/2023 13:57 Receipt Acknowledged By: * AWAITING SIGNATURE * ALEXANDR SILVERIO [facility]
--- OUTSIDE RECORDS SUMMARY | 2024-08-18 13:08 | XMS_ITS | Encounter Summary ---
Author Name [facility] [place] Organization [place] Address [address] [place] [address] Care Team Providers Care Instructor Apparel Manufacture Name Role Phone ALEXANDR YODER Primary Care [...] Name Patient's Relationship to Policy [place] [facility] (WNR) MEDICARE ADVANTAGE HUMAN [facility] Mar 23, 2023 [id number] [phone] Ezekiel WILKERSON PATIENT Selected Encounter This section includes the information on record at [place] for the Encounter. Date/Time Encounter Type Encounter Description Reason Pro vider Source Nov 02, 2023 08:10 AM Outpatient Encounter [facility] Encounter Template Text not used by [place] Plan of Treatment: Future Appointments (+ 6 months) and Future Tests (+/- 45 days) The Plan of Treatment section includes future care activities for the patient from all [place] treatmentfacilities. This section includes future appointments and future orders which are active, pending or scheduled. Future Appointments This section includes appointments that were scheduled to occur 6 months from the date of the Encounter, up to a maximum of 20 appointments. The data comes from all [place] treatment facilities. Appointment Date/Time Appointment Type Appointme nt Facility Name Nov 05, 2023 11:00 AM [facility] Nov 08, 2023 02:00 PM [facility]UL[facility] Nov 23, 2023 02:45 PM AMBULATORY [facility]INE [facility] Dec 09, 2023 01:30 PM AMBULATORY [facility]ICINE [facility] Dec 09, 2023 03:00 PM AMBULATORY - MEDICINE [facility] Dec 17, 2023 01:00 PM AMBULATORY - PS[facility]CHIATRY [facility] Dec 17, 2023 01:30 PM AMBULATORY - PS[facility]CHIATRY [facility] January 05, 2024 11:30 AM AMBULATORY - MEDICINE [facility] January 21, 2024 01:30 PM AMBULATORY - PS[facility]CHIATRY [facility] Feb 16, 2024 01:30 PM AMBULATORY - MEDICINE [facility] Feb 18, 2024 03:00 PM AMBULATORY - MEDICINE [facility] Mar 03, 2024 01:30 PM AMBULATORY - PS[facility]IATRY [facility] Apr 06, 2024 08:30 AM AMBULATORY [facility] MEDICINE [facility] Apr 19, 2024 02:15 PM [facility]UL[facility]ORY [facility]ICINE [facility] Social History: Smoking Status (Most current) and Tobacco Use (All prior to encounter date) This section includes the most current, and the historical, smoking and tobacco- related health factors from the [place] facility where the Encounter took place. Current Smoking Status This section includes the most current smoking, or tobacco-related health factor, from the [place] facility where the Encounter took place. Date/Time Current Smoking Status Comment [facility] it Apr 07, 2023 01:30 PM VA-TOBACCO FORMER USER [place] [facility] Tobacco Use History This section includes a history of the smoking, or tobacco-related health factors, that were collected on or before the date of the Encounter. The data comes from the [place] facility where the Encounter took place. Date/Time Smoking Status/Tobac co Use Comment Facility Apr 07, 2023 01:30 PM VA-TOBACCO QUIT 5 TO < 15 YRS [facility] May 07, 2022 09:30 AM VA-TOBACCO FORMER USER [facility] May 07, 2022 09:30 AM VA-TOBACCO QUIT 1 TO < 5 YRS [facility] May 15, 2021 08:45 AM VA-TOBACCO FORMER USER [facility] May 15, 2021 08:45 AM VA-TOBACCO QUIT 1 TO < 5 YRS [facility] Jun 04, 2020 10:30 AM VA-TOBACCO FORMER USER [facility] Jun 04, 2020 10:30 AM VA-TOBACCO QUIT < 1 YEAR [facility] May 23, 2019 09:36 AM VA-TOBACCO DOESNT USE WI 30 MIN [facility] May 23, 2019 09:36 AM VA-TOBACCO USE 30 YEARS OR MORE [facility] May 23[facility] 2019 09:36 AM VA-TOBACCO USE ADVICE [facility] May 23, 2019 09:36 AM 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 [facility] May 23, 2019 09:36 AM VA-TOBACCO USE MED NO [facility] May 23, 2019 09:36 AM VA-TOBACCO USER EVERY DAY [facility] Apr 21, 2018 01:18 PM CURRENT SMOKER 1/2 pk a week [facility] Apr 21, 2018 01:18 PM V1-PT DECLINES REF TO TOBACCO CESS PRGM [facility] Apr 21, 2018 01:18 PM V1-PT DECLINES TOB ACCO CESSATION MEDS [facility] Apr 21, 2018 01:18 PM V1-PT THINKING ABO UT QUIT TOBACCO USE [facility] Oct 18, 2017 02:19 PM V1-PT NOT INTEREST ED IN QUIT TOBACCO USE [facility] Oct 04, 2017 01:55 PM CURRENT SMOKER .5 packs a day [facility] Advance Directives: All historical and current Section Date Range: From patient's date of to the date document was created. This section includes ALL of a patient's completed or amended [place] Advance and Rescinded Directives. The entries below indicate that a directive exists for the patient, but an actual copy is not included with this document. The data comes from all [place] facilities. Date Advance Directives Provider Source Feb 13, 2003 ADVANCE DIRECTIVE KAT OVIEDO [facility] Encounter Notes: All associated encounter notes This section contains the clinical notes associated to the Encounter. Date/Time Encounter Note(s) Provider Source Nov 02, 2023 08:10 AM ADMINISTRATIVE NOT E: LOCAL TITLE: ADMINISTRATIVE NOTE STANDARD TITLE: ADMINISTRATIVE NOTE DATE OF NOTE: NOV 02, 2023@08:10 ENTRY DATE: NOV 02, 2023@08:10:16 AUTHOR: MANUEL EMANUEL EXP COSIGNER: URGENCY: STATUS: COMPLETED Kier Hand received a voicemail from dated yesterday afternoon at 3:19pm needing to cancel his appointment today with provider. Would like to reschedule for a later date. /herlinda/ MAUNEL EMANUEL HOME HEALTH PHYSICAL THERAPIST Signed: 11/02/2023 08:12 Receipt Acknowledged By: 11/18/2023 08:22 /herlinda/ BRIA LOPEZ, PhD Clinical Psychologist 11/03/2023 15:48 /herlinda/ YVETTE MEHTA C 40A CREW CHIEF MANUEL EMANUEL [facility]
--- OUTSIDE RECORDS SUMMARY | 2024-08-18 13:08 | XMS_ITS | Encounter Summary ---
Author Name [place] Address [address] [place] [address] Care Team Providers Care Well Digger Name Role Phone ALEXANDR YODER Primary Care [...] Name Patient's Relationship to Policy [place] [facility] (WNR) MEDICARE ADVANTAGE HUMAN A [facility]UR [facility] Mar 23, 2023 [id number] [phone] Ezekiel WILKERSON PATIENT Selected Encounter This section includes the information on record at [place] for the Encounter. Date/Time Encounter Type Encounter Description Reason Pro vider Source Nov 01, 2023 02:57 PM Outpatient Encounter COMMUNITY CARE CONSULT IHE Encounter Template Text not used by [place] Plan of Treatment: Future Appointments (+ 6 months) and Future Tests (+/- 45 days) The Plan of Treatment section includes future care activities for the patient from all [place] treatmentfacilities. This section includes future appointments and future orders which are active, pending or scheduled. Future Appointments This section includes appointments that were scheduled to occur 6 months from the date of the Encounter, up to a maximum of 20 appointments. The data comes from all [place] treatment facilities. Appointment Date/Time Appointment Type Appointme nt Facility Name Nov 05, 2023 11:00 AM AMBULATORY - MEDICINE [place] [facility] [place] [facility] Nov 08, 2023 02:00 PM AMBULATORY - MEDICINE [place] [facility] [place] [facility] Nov 23, 2023 02:45 PM AMBULATORY - MEDICINE [place] [facility] [place] [facility] Dec 09, 2023 01:30 PM AMBULATORY - MEDICINE [place] [facility] [place] [facility] Dec 09, 2023 03:00 PM AMBULATORY - MEDICINE [place] [facility] [place] [facility] Dec 17, 2023 01:00 PM AMBULATORY - PSYCHIATRY [facility] [place] [facility] Dec 17, 2023 01:30 PM AMBULATORY - PSYCHIATRY [place] [facility] [place] [facility] January 05, 2024 11:30 AM AMBULATORY - MEDICINE [place] [facility] [place] [facility] January 21, 2024 01:30 PM AMBULATORY - PSYCHIATRY [facility] [place] [facility] Feb 16, 2024 01:30 PM AMBULATORY - MEDICINE [place] [facility] [place] [facility] Feb 18, 2024 03:00 PM AMBULATORY - MEDICINE [facility] [place] [facility] Mar 03, 2024 01:30 PM AMBULATORY - PSYCHIATRY [place] [facility] [place] [facility] Apr 06, 2024 08:30 AM AMBULATORY - MEDICINE [place] [facility] [place] [facility] Apr 19, 2024 02:15 PM AMBULATORY - MEDICINE [place] [facility] [place] [facility] Social History: Smoking Status (Most current) and Tobacco Use (All prior to encounter date) This section includes the most current, and the historical, smoking and tobacco- related health factors from the [place] facility where the Encounter took place. Current Smoking Status This section includes the most current smoking, or tobacco-related health factor, from the [place] facility where the Encounter took place. Date/Time Current Smoking Status Comment [facility] it Apr 07, 2023 01:30 PM VA-TOBACCO FORMER USER [place] [facility] [place] [facility] Tobacco Use History This section includes a history of the smoking, or tobacco-related health factors, that were collected on or before the date of the Encounter. The data comes from the [place] facility where the Encounter took place. Date/Time Smoking Status/Tobac co Use Comment Facility Apr 07, 2023 01:30 PM VA-TOBACCO QUIT 5 TO < 15 YRS [place] [facility] [place] [facility] May 07, 2022 09:30 AM VA-TOBACCO FORMER USER [place] [facility] [place] [facility] May 07, 2022 09:30 AM VA-TOBACCO QUIT 1 TO < 5 YRS [place] [facility] [place] [facility] May 15, 2021 08:45 AM VA-TOBACCO FORMER USER [place] [facility] [place] [facility] May 15, 2021 08:45 AM VA-TOBACCO QUIT 1 TO < 5 YRS [place] [facility] [place] [facility] Jun 04, 2020 10:30 AM VA-TOBACCO FORMER USER [place] [facility] [place] [facility] Jun 04, 2020 10:30 AM VA-TOBACCO QUIT < 1 YEAR [place] [facility] [place] [facility] May 23, 2019 09:36 AM VA-TOBACCO DOESNT USE WI 30 MIN WAKEUP [place] [facility] [place] [facility] May 23, 2019 09:36 AM VA-TOBACCO USE 30 YEARS OR MORE [place] [facility] [place] [facility] May 23, 2019 09:36 AM VA-TOBACCO USE ADVICE [place] [facility] [place] [facility] May 23, 2019 09:36 AM 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 [place] [facility] [place] [facility] May 23, 2019 09:36 AM VA-TOBACCO USE MED NO [place] [facility] [place] [facility] May 23, 2019 09:36 AM VA-TOBACCO USER EVERY DAY [place] [facility] [place] [facility] Apr 21, 2018 01:18 PM CURRENT SMOKER 1/2 pk a week [place] [facility] [place] [facility] Apr 21, 2018 01:18 PM V1-PT DECLINES REF TO TOBACCO CESS PRGM [place] [facility] [place] [facility] Apr 21, 2018 01:18 PM V1-PT DECLINES TOB ACCO CESSATION MEDS [place] [facility] [place] [facility] Apr 21, 2018 01:18 PM V1-PT THINKING ABO UT QUIT TOBACCO USE [place] [facility] [place] [facility] Oct 18, 2017 02:19 PM V1-PT NOT INTEREST ED IN QUIT TOBACCO USE [place] [facility] [place] [facility] Oct 04, 2017 01:55 PM CURRENT SMOKER .5 packs a day [place] [facility] [place] [facility] Advance Directives: All historical and current Section Date Range: From patient's date of to the date document was created. This section includes ALL of a patient's completed or amended [place] Advance and Rescinded Directives. The entries below indicate that a directive exists for the patient, but an actual copy is not included with this document. The data comes from all [place] facilities. Date Advance Directives Provider Source Feb 13, 2003 ADVANCE DIRECTIVE KAT OVIEDO [facility] Encounter Notes: All associated encounter notes This section contains the clinical notes associated to the Encounter. Date/Time Encounter Note(s) Provider Source Nov 01, 2023 02:57 PM NONVA NOTE: [facility] TITLE: [facility] CARE COORD PLAN STANDARD TITLE: NONVA NOTE DATE OF NOTE: NOV 01, 2023@14:57 ENTRY DATE: NOV 01, 2023@14:57:31 AUTHOR: VARGAS LIZARRAGA EXP COSIGNER: URGENCY: STATUS: COMPLETED Emergency Notification Intake Date Presenting to the Facility: Oct Method of Contact: Notified from ECR worklist Notification ID: [id number] [facility] Referral #: [facility] [place] Name: Hospital: [facility] Address: City: [place] State: [place] Zip Code: Phone : [facility] Facility Point of Contact: Name: Sierra Phone: Chief complaint: SOB HEADACHE Primary Diagnosis: Disposition Unknown at time of intake note entry /herlinda/ VARGAS AJ Signed: 11/01/2023 14:58 Receipt Acknowledged By: * AWAITING SIGNATURE * MAREN ALDRICH 11/01/2023 15:54 /es/ JR JOSEPH Nurse Practitioner * AWAITING SIGNATURE * KEVEN STACK 11/01/2023 16:03 /es/ CAMDEN NINO, MSN, RN, CNL PRIMARY CARE TEAM NURSE 11/02/2023 09:05 /es/ Cathie Del Angel, advanced developer Staff Nurse * AWAITING SIGNATURE * ALEXANDR URIBE * AWAITING SIGNATURE * DONTA MAYEN DAWN MARIE VILAS
--- OUTSIDE RECORDS SUMMARY | 2024-08-18 13:08 | XMS_ITS ---
Author Name [place] Address [address] [place] [address] Care Team Providers Care Police Commissioner Name Role Phone ALEXANDR YODER Primary Care [...] [place]'s Name Patient's Relationship to Policy [place] BENJAMINA LYLE (WNR) MEDICARE ADVANTAGE HUMAN A INSUR ANCE ip.access Mar 23, 2023 [id number] [phone] Ezekiel WILKERSON PATIENT Selected Encounter This section includes the information on record at [place] for the Encounter. Date/Time Encounter Type Encounter Description Reason Provider Source Sep 13, 2023 11:55 AM Outpatient Encounter HT NON-VIDEO MONITORING ICD-10-CM E66.01 Morbid (severe) obesity due to excess calories TAMAREKLJ,ALEC L IHE Encounter Template Text not used by [place] Assessments - Encounter Diagnoses This section includes the primary and secondary diagnoses documented for the Encounter. Date/Time Primary/Secondary Diagnosis Diagnosis Name Provider Source Sep 13, 2023 12:01 PM PRIMARY Morbid (severe) obesity due to excess calories ANTONIO ZHANG [place] [facility] [place] [facility] Sep 13, 2023 12:01 PM SECONDARY Body mass index [BMI] 40.0-44.9, adult ANTONIO ZHANG [place] [facility] [place] [facility] Plan of Treatment: Future Appointments (+ 6 months) and Future Tests (+/- 45 days) The Plan of Treatment section includes future care activities for the patient [facility] [place] [facility] This section includes future appointments and future orders which are active, pending or scheduled. Future Appointments This section includes appointments that were scheduled to occur 6 months from the date of the Encounter, up to a maximum of 20 appointments. The data comes from all [place] treatment facilities. Appointment Date/Time Appointment Type Appointme nt Facility Name Sep 17, 2023 11:30 AM AMBULATORY - MEDICINE [place] [facility] [place] [facility] Sep 24, 2023 01:30 PM AMBULATORY - PSYCHIATRY [facility] [place] [facility] Sep 24, 2023 02:00 PM AMBULATORY - PSYCHIATRY [place] [facility] [place] [facility] Oct 29, 2023 01:30 PM AMBULATORY - PSYCHIATRY [place] [facility] [place] [facility] Nov 05, 2023 11:00 AM AMBULATORY - MEDICINE [place] [facility] [place] [facility] Nov 08, 2023 02:00 PM AMBULATORY - MEDICINE [place] [facility] [place] [facility] Nov 23, 2023 02:45 PM AMBULATORY - MEDICINE [place] [facility] [place] [facility] Dec 09, 2023 01:30 PM AMBULATORY - MEDICINE [place] [facility] [place] [facility] Dec 09, 2023 03:00 PM AMBULATORY - MEDICINE [place] [facility] [place] [facility] Dec 17, 2023 01:00 PM AMBULATORY - PSYCHIATRY [place] [facility] [place] [facility] Dec 17, 2023 01:30 PM AMBULATORY - PSYCHIATRY [place] [facility] [place] [facility] January 05, 2024 11:30 AM AMBULATORY - MEDICINE [place] [facility] [place] [facility] January 21, 2024 01:30 PM AMBULATORY - PSYCHIATRY [place] [facility] [place] [facility] Feb 16, 2024 01:30 PM AMBULATORY - MEDICINE [place] [facility] [place] [facility] Feb 18, 2024 03:00 PM AMBULATORY - MEDICINE [place] [facility] [place] [facility] Mar 03, 2024 01:30 PM AMBULATORY - PSYCHIATRY [place] [facility] [place] [facility] Social History: Smoking Status (Most current) and Tobacco Use (All prior to encounter date) This section includes the most current, and the historical, smoking and tobacco- related health factors from the [place] facility where the Encounter took place. Current Smoking Status This section includes the most current smoking, or tobacco-related health factor, from the [place] facility where the Encounter took place. Date/Time Current Smoking Status Comment Facil it Apr 07, 2023 01:30 PM VA-TOBACCO QUIT 5 TO < 15 YRS [place] [facility] Tobacco Use History This section includes a history of the smoking, or tobacco-related health factors, that were collected on or before the date of the Encounter. The data comes from the [place] facility where the Encounter took place. Date/Time Smoking Status/Tobac co Use Comment Facility Apr 07, 2023 01:30 PM VA-TOBACCO QUIT 5 TO < 15 YRS [place] [facility] [place] [facility] May 07, 2022 09:30 AM VA-TOBACCO FORMER USER [place] [facility] [place] [facility] May 07, 2022 09:30 AM VA-TOBACCO QUIT 1 TO < 5 YRS [place] [facility] [place] [facility] May 15, 2021 08:45 AM VA-TOBACCO FORMER USER [place] [facility] [place] [facility] May 15, 2021 08:45 AM VA-TOBACCO QUIT 1 TO < 5 YRS [place] [facility] [place] [facility] Jun 04, 2020 10:30 AM VA-TOBACCO FORMER USER [place] [facility] [place] [facility] Jun 04, 2020 10:30 AM VA-TOBACCO QUIT < 1 YEAR [place] [facility] [place] [facility] May 23, 2019 09:36 AM VA-TOBACCO DOESNT USE WI 30 MIN WAKEUP [place] [facility] [place] [facility] May 23, 2019 09:36 AM VA-TOBACCO USE 30 YEARS OR MORE [place] [facility] [place] [facility] May 23, 2019 09:36 AM VA-TOBACCO USE ADVICE [place] [facility] [place] [facility] May 23, 2019 09:36 AM 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 [place] [facility] [place] [facility] May 23, 2019 09:36 AM VA-TOBACCO USE MED NO [place] [facility] [place] [facility] May 23, 2019 09:36 AM VA-TOBACCO USER EVERY DAY [facility] Apr 21, 2018 01:18 PM CURRENT SMOKER 1/2 pk a week [facility] Apr 21, 2018 01:18 PM V1-PT DECLINES REF TO TOBACCO CESS PRGM [facility] Apr 21, 2018 01:18 PM V1-PT DECLINES TOB ACCO CESSATION MEDS [facility] Apr 21, 2018 01:18 PM V1-PT THINKING ABO UT QUIT TOBACCO USE [facility] Oct 18, 2017 02:19 PM V1-PT NOT INTEREST ED IN QUIT TOBACCO USE [facility] Oct 04, 2017 01:55 PM CURRENT SMOKER .5 packs a day [facility] Advance Directives: All historical and current Section Date Range: From patient's date of to the date document was created. This section includes ALL of a patient's completed or amended [place] Advance and Rescinded Directives. The entries below indicate that a directive exists for the patient, but an actual copy is not included with this document. The data comes from all [place] facilities. Date Advance Directives Provider Source Feb 13, 2003 ADVANCE DIRECTIVE KAT OVIEDO [facility] Encounter Notes: All associated encounter notes This section contains the clinical notes associated to the Encounter. Date/Time Encounter Note(s) Provider Source Sep 13, 2023 11:57 AM NUTRITION NOTE: LOCAL TITLE: LOW INTENSITY/LOW ACUITY MONTHLY MONITOR NOTE STANDARD TITLE: NUTRITION NOTE DATE OF NOTE: SEP 13, 2023@11:57 ENTRY DATE: SEP 13, 2023@11:58:12 AUTHOR: ALEC QUILES COSIGNER: URGENCY: STATUS: COMPLETED The [facility] is enrolled in the Home Telehealth (HT) program and continues to be monitored via HT technology. The data sent by the is reviewed and analyzed by the HT staff, who provide ongoing case management and health education while communicating and collaborating with the health care team as appropriate. This note covers a total of 30 minutes for the month monitored. Month monitored:AUGUST 2023 Dx: E66.01 severe obesity /es/ ALEC QUILES RD,LDN STAFF DIETITIAN Signed: 09/13/2023 12:07 ALEC QUILES [facility]
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
--- OUTSIDE RECORDS SUMMARY | 2024-08-18 13:08 | XMS_ITS ---
Author Name [facility] [place] [facility] [place] Organization [facility] [place] Address [address] [place] [address] Care Team Providers Care Lime Burner Name Role Phone ALEXANDR YODER Primary Care [...] Name Patient's Relationship to Policy [place] [employer] [facility] (WNR) MEDICARE ADVANTAGE HUMAN A INSUR [facility] Mar 23, 2023 [id number] [phone] Ezekiel WILKERSON PATIENT Selected Encounter This section includes the information on record at [place] for the Encounter. Date/Time Encounter Type Encounter Description Reason Provider Source Oct 01, 2023 12:30 PM Outpatient Encounter TELEPHONE TRIAGE YAN MUKHERJEE Encounter Template Text not used by [place] Plan of Treatment: Future Appointments (+ 6 months) and Future Tests (+/- 45 days) The Plan of Treatment section includes future care activities for the patient from all [place] treatmentfacilities. This section includes future appointments and future orders which are active, pending or scheduled. Future Appointments This section includes appointments that were scheduled to occur 6 months from the date of the Encounter, up to a maximum of 20 appointments. The data comes from all [place] treatment facilities. Appointment Date/Time Appointment Type Appointme nt Facility Name Oct 29, 2023 01:30 PM AMBULATORY [facility]AT[facility] [place] [facility] Nov 05, 2023 11:00 AM AMBULATORY - MEDICINE [facility] [place] [facility] Nov 08, 2023 02:00 PM AMBULATORY - MEDICINE [facility] [place] [facility] Nov 23, 2023 02:45 PM AMBULATORY - MEDICINE [facility] [place] [facility] Dec 09, 2023 01:30 PM AMBULATORY - MEDICINE [facility] [place] [facility] Dec 09, 2023 03:00 PM AMBULATORY - MEDICINE [facility] [place] [facility] Dec 17, 2023 01:00 PM AMBULATORY - PS[facility]CHIATRY [facility] [place] [facility] Dec 17, 2023 01:30 PM AMBULATORY - PS[facility]CHIATRY [facility] [place] [facility] January 05, 2024 11:30 AM AMBULATORY - MEDICINE [place] [facility] [facility] January 21, 2024 01:30 PM AMBULATORY - PSYCHIATRY [facility] [place] [facility] Feb 16, 2024 01:30 PM AMBULATORY - MEDICINE [place] [facility] [place] [facility] Feb 18, 2024 03:00 PM AMBULATORY - MEDICINE [place] [facility] [place] [facility] Mar 03, 2024 01:30 PM AMBULATORY - PSYCHIATRY [place] [facility] [place] [facility] Social History: Smoking Status (Most current) and Tobacco Use (All prior to encounter date) This section includes the most current, and the historical, smoking and tobacco- related health factors from the [place] facility where the Encounter took place. Current Smoking Status This section includes the most current smoking, or tobacco-related health factor, from the [place] facility where the Encounter took place. Date/Time Current Smoking Status Comment [facility] it Apr 07, 2023 01:30 PM VA-TOBACCO QUIT 5 TO < 15 YRS [facility] [place] [facility] Tobacco Use History This section includes a history of the smoking, or tobacco-related health factors, that were collected on or before the date of the Encounter. The data comes from the [place] facility where the Encounter took place. Date/Time Smoking Status/Tobac co Use Comment Facility Apr 07, 2023 01:30 PM VA-TOBACCO QUIT 5 TO < 15 YRS [place] [facility] [place] [facility] May 07, 2022 09:30 AM VA-TOBACCO FORMER USER [facility] [place] [facility] May 07, 2022 09:30 AM VA-TOBACCO QUIT 1 TO < 5 YRS [facility] [place] [facility] May 15, 2021 08:45 AM VA-TOBACCO FORMER USER [facility] [place] [facility] May 15, 2021 08:45 AM VA-TOBACCO QUIT 1 TO < 5 YRS [place] [facility] [facility] Jun 04, 2020 10:30 AM VA-TOBACCO FORMER USER [place] [facility] [facility] Jun 04, 2020 10:30 AM VA-TOBACCO QUIT < 1 YEAR [place] [facility] [facility] May 23, 2019 09:36 AM VA-TOBACCO DOESNT USE WI 30 MIN WAKEUP [place] [facility] [facility] May 23, 2019 09:36 AM VA-TOBACCO USE 30 YEARS OR MORE [facility] [place] [facility] May 23, 2019 09:36 AM VA-TOBACCO USE ADVICE [place] [facility] 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 May 23, 2019 09:36 AM VA-TOBACCO USE MED NO [place] [facility] [facility] May 23, 2019 09:36 AM VA-TOBACCO USER EVERY DAY [place] [facility] [place] [facility] Apr 21, 2018 01:18 PM CURRENT SMOKER 1/2 pk a week [place] [facility] [place] [facility] Apr 21, 2018 01:18 PM V1-PT DECLINES REF TO TOBACCO CESS PRGM [place] [facility] [place] [facility] Apr 21, 2018 01:18 PM V1-PT DECLINES TOB ACCO CESSATION MEDS [place] [facility] [place] [facility] Apr 21, 2018 01:18 PM V1-PT THINKING ABO UT QUIT TOBACCO USE [facility] [place] [facility] Oct 18, 2017 02:19 PM V1-PT NOT INTEREST ED IN QUIT TOBACCO USE [place] [facility] [facility] Oct 04, 2017 01:55 PM CURRENT SMOKER .5 packs a day [place] [facility] [place] [facility] Advance Directives: All historical and current Section Date Range: From patient's date of to the date document was created. This section includes ALL of a patient's completed or amended [place] Advance and Rescinded Directives. The entries below indicate that a directive exists for the patient, but an actual copy is not included with this document. The data comes from all [place] facilities. Date Advance Directives Provider Source Feb 13, 2003 ADVANCE DIRECTIVE KAT OVIEDO [facility] Encounter Notes: All associated encounter notes This section contains the clinical notes associated to the Encounter. Date/Time Encounter Note(s) Provider Source Oct 01, 2023 12:30 PM RN PROGRESS NOTE: LOCAL TITLE: CCC: CLINICAL TRIAGE STANDARD TITLE: RN PROGRESS NOTE DATE OF NOTE: OCT 01, 2023@12:30:22 ENTRY DATE: OCT 01, 2023@12:30:22 AUTHOR: YAN MUKHERJEE COSIGNER: URGENCY: STATUS: COMPLETED Patient Demographics Patient Name: ANDRZEJ WILKERSON Patient Primary [address]: [address] [place] [id number] Patient Primary Phone: [phone] Patient : 1955 Patient Age: 68 Call Back Number: [phone] Caller/Recipient Relation to Patient: Self Emergency Contact: ROBERTO MONTES Triage Summary Conducted triage/discussed symptoms Utilized the Triage Tool: Yes Chief Complaint: Arm Swelling (one arm) System WHEN: Now Nurse's Recommendation / WHEN: Now System WHERE: Emergency department Nurse's Recommendation / WHERE: ED Other WHEN/WHERE modifier reason: Distance from Hospital Patient Disposition Patient/Caregiver agrees to plan of care: Yes Nursing Plan and Disposition Referred patient to higher level of care Instructed to go to Emergency Room (ER) Advised of Financial Disclaimer: Patient advised that recommendation for care provided during the call does not constitute an approval or authorization for payment by the DC or its staff. Patient advised to report a community ED visit to the national Office of Community Care at within 72 hours. Generated msg to PACT/Provider Nurse Summary Nurse Summary: calls reporting he woke up today w/ swelling in the RT arm from bicep to fingertips. States the arm was painful late last night denies pain today or known injury. [place] applied ice then heat to the arm this morning and swelling has improved but the hand is slightly numb. 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 will go to [facility] ER in [place] now for evaluation. FORWARDING TO PACT FOR REVIEW Clinical Contact Center Codes Clinic/Location: V1 CWM PHONE CCC RN TXCC Triage Complete Triage Note: Phone Triage 01 Oct 2023 17:18:45 +0000 [facility] Demographics 68 y/o Male Results CC: Arm Swelling (one arm) Software suggested: Now Software suggested follow-up location: Emergency department Values and Measures Duration of CC: 2 Days Positive Responses HPI: dyspnea, new or worsening PMH: DVT VS: pulse not taken VS: temperature not taken Negative Responses Denies: HPI: arm erythema, worsening Denies: HPI: arm pain, with arm swelling Denies: HPI: arm swelling, since the injury Denies: HPI: arm tenderness, with arm swelling Denies: HPI: hemoptysis Denies: HPI: unilateral arm swelling, entire arm Denies: PMH: pulmonary embolism [place] Education Verbal Education Provided: Based on your responses, you should be treated in the emergency room. Take action: You need to see a provider now or your condition could worsen. Consider calling an ambulance. /herlinda/ YAN MUKHERJEE Signed: 10/01/2023 12:30 Receipt Acknowledged By: 10/01/2023 13:23 /herlinda/ CAMDEN NINO, MSN, RN, CNL PRIMARY CARE TEAM NURSE 10/01/2023 12:52 /herlinda/ Cathie Del Angel, fuel quality tech Staff Nurse YAN MUKHERJEE [facility]
--- OUTSIDE RECORDS SUMMARY | 2024-08-18 13:08 | XMS_ITS ---
Author Name [facility] [place] Organization [facility] [place] Address [address] [place] [address] Care Team Providers Care Switchboard Operator Helper Name Role Phone ALEXANDR YODER Primary Care [...] Name Patient's Relationship to Policy [place] [employer] [facility] (WNR) MEDICARE ADVANTAGE HUMAN [facility] Mar 23, 2023 [id number] [phone] Ezekiel WILKERSON PATIENT Selected Encounter This section includes the information on record at [place] for the Encounter. Date/Time Encounter Type Encounter Description Reason Provider Source Oct 31, 2023 12:31 AM Outpatient Encounter TELEPHONE TRIAGE ANTONIO GONZALEZ Encounter Template Text not used by [place] Plan of Treatment: Future Appointments (+ 6 months) and Future Tests (+/- 45 days) The Plan of Treatment section includes future care activities for the patient from all [place] treatmentfacilities. This section includes future appointments and future orders which are active, pending or scheduled. Future Appointments This section includes appointments that were scheduled to occur 6 months from the date of the Encounter, up to a maximum of 20 appointments. The data comes from all [place] treatment facilities. Appointment Date/Time Appointment Type Appointme nt Facility Name Nov 05, 2023 11:00 AM AMBULATORY - MEDICINE [facility] [place] [facility] Nov 08, 2023 02:00 PM AMBULATORY - MEDICINE [facility] [place] [facility] Nov 23, 2023 02:45 PM AMBULATORY - MEDICINE [facility] [place] [facility] Dec 09, 2023 01:30 PM AMBULATORY - MEDICINE [facility] [place] [facility] Dec 09, 2023 03:00 PM AMBULATORY - MEDICINE [facility] [place] [facility] Dec 17, 2023 01:00 PM AMBULATORY - PSYCHIATRY [facility] [place] [facility] Dec 17, 2023 01:30 PM AMBULATORY - PSYCHIATRY [facility] [place] [facility] January 05, 2024 11:30 AM AMBULATORY - MEDICINE [facility] [place] [facility] January 21, 2024 01:30 PM AMBULATORY - PSYCHIATRY [facility] [place] [facility] Feb 16, 2024 01:30 PM AMBULATORY - MEDICINE [facility] [place] [facility] Feb 18, 2024 03:00 PM AMBULATORY - MEDICINE [facility] [place] [facility] Mar 03, 2024 01:30 PM AMBULATORY - PSYCHIATRY [facility] [facility] Apr 06, 2024 08:30 AM AMBULATORY - [place]ICINE [place] [facility] [place] [facility] Apr 19, 2024 02:15 PM AMBULATORY - [place]ICINE [place] [facility] [place] [facility] Social History: Smoking Status (Most current) and Tobacco Use (All prior to encounter date) This section includes the most current, and the historical, smoking and tobacco- related health factors from the [place] facility where the Encounter took place. Current Smoking Status This section includes the most current smoking, or tobacco-related health factor, from the [place] facility where the Encounter took place. Date/Time Current Smoking Status Comment [facility] it Apr 07, 2023 01:30 PM VA-TOBACCO QUIT 5 TO < 15 YRS [place] [facility] [place] [facility] Tobacco Use History This section includes a history of the smoking, or tobacco-related health factors, that were collected on or before the date of the Encounter. The data comes from the [place] facility where the Encounter took place. Date/Time Smoking Status/Tobac co Use Comment Facility Apr 07, 2023 01:30 PM VA-TOBACCO QUIT 5 TO < 15 YRS [facility] [place] [facility] May 07, 2022 09:30 AM VA-TOBACCO FORMER USER [facility] [place] [facility] May 07, 2022 09:30 AM VA-TOBACCO QUIT 1 TO < 5 YRS [place] [facility] [place] [facility] May 15, 2021 08:45 AM VA-TOBACCO FORMER USER [place] [facility] [facility] May 15, 2021 08:45 AM VA-TOBACCO QUIT 1 TO < 5 YRS [place] [facility] [place] [facility] Jun 04, 2020 10:30 AM VA-TOBACCO FORMER USER [place] [facility] [facility] Jun 04, 2020 10:30 AM VA-TOBACCO QUIT < 1 YEAR [place] [facility] [place] [facility] May 23, 2019 09:36 AM VA-TOBACCO DOESNT USE WI 30 MIN WAKEUP [place] [facility] [place] [facility] May 23, 2019 09:36 AM VA-TOBACCO USE 30 YEARS OR MORE [place] [facility] [facility] May 23, 2019 09:36 AM [facility] [place] [facility] May 23, 2019 09:36 AM VA-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 [place] [facility] [place] [facility] May 23, 2019 09:36 AM VA-TOBACCO USE MED NO [place] [facility] [place] [facility] May 23, 2019 09:36 AM VA-TOBACCO USER EVERY DAY [place] [facility] [place] [facility] Apr 21, 2018 01:18 PM CURRENT SMOKER 1/2 pk a week [place] [facility] [facility] Apr 21, 2018 01:18 PM V1-PT DECLINES REF TO TOBACCO CESS PRGM [place] [facility] [place] [facility] Apr 21, 2018 01:18 PM V1-PT DECLINES TOB ACCO CESSATION MEDS [place] [facility] [place] [facility] Apr 21, 2018 01:18 PM V1-PT THINKING ABO UT QUIT TOBACCO USE [place] [facility] [place] [facility] Oct 18, 2017 02:19 PM V1-PT NOT INTEREST ED IN QUIT TOBACCO USE [place] [facility] [place] [facility] Oct 04, 2017 01:55 PM CURRENT SMOKER .5 packs a day [place] [facility] [facility] Advance Directives: All historical and current Section Date Range: From patient's date of to the date document was created. This section includes ALL of a patient's completed or amended [place] Advance and Rescinded Directives. The entries below indicate that a directive exists for the patient, but an actual copy is not included with this document. The data comes from all [place] facilities. Date Advance Directives Provider Source Feb 13, 2003 ADVANCE DIRECTIVE KAT OVIEDO [facility] Encounter Notes: All associated encounter notes This section contains the clinical notes associated to the Encounter. Date/Time Encounter Note(s) Provider Source Oct 31, 2023 12:31 AM RN PROGRESS NOTE: [facility] TITLE: [facility]: CLINICAL TRIAGE STANDARD TITLE: RN PROGRESS NOTE DATE OF NOTE: OCT 31, 2023@00:31:30 ENTRY DATE: OCT 31, 2023@00:31:30 AUTHOR: ANTONIO GOZNALEZ COSIGNER: URGENCY: STATUS: COMPLETED Patient Demographics Patient Name: ANDRZEJ WILKERSON Patient Primary Address: [address] [place] [id number] Patient Primary Phone: [phone] Patient : 1955 Patient Age: 68 Caller/Recipient Relation to Patient: Self Emergency Contact: ROBERTO MONTES Triage Summary Conducted triage/discussed symptoms Pain Score: 2 Utilized the Triage Tool: Yes Chief Complaint: Shortness Of Breath (wheezing) System WHEN: Within 8 Hours Nurse's Recommendation / WHEN: Within 8 Hours System WHERE: Urgent care center Nurse's Recommendation / WHERE: ED Other COVID Screening Patient confirms the following symptoms Cough Headache POSITIVE symptom/s or exposure Patient Disposition Patient/Caregiver agrees to plan of care: Yes Patient is Urgent or Emergent Nursing Plan and Disposition Referred patient to higher level of care Instructed to go to Emergency Room (ER) Nurse Summary Nurse Summary: copd exacerbation - vet c/o worsening sob especially when walking o bathroom. Vet states has wheezing - used inhalers-no improvement-has a cpap usually sleep flat in bed but concerned tonight-thinking of sleeping in recliner-vet w/o wheezing audible on phone, n loss of breath while talking, no sob at rest-vet only option for care is 911 to local ER - r/t no transportation- [place] far. Vet c/o wet cough unable to bring up mucous. Vet will go to ER within next 8 hours. Clinical Contact Center Codes Clinic/Location: V1 CWM PHONE CCC RN WHEN TXCC Triage Complete Triage Note: Phone Triage Juliette, 31 Oct 2023 05:12:17 +0000 [facility] Demographics 68 y/o Male Results CC: Shortness Of Breath (wheezing) Software suggested: Within 8 Hours Software suggested follow-up location: Urgent care center Values and Measures Duration of CC: 6 Hours Positive Responses HPI: asthma does not improve with inhaler use HPI: cough, new or worsening HPI: dyspnea, worsening HPI: wheezing, within past hour MONITOR: patient does not have a peak flow meter PMH: asthma VS: pulse not taken VS: respiratory rate not taken VS: temperature not taken Negative Responses Denies: HPI: chest pain Denies: HPI: cough, moderate to severe Denies: HPI: cough, purulent sputum Denies: HPI: dyspnea, at rest Denies: HPI: dyspnea, severe Denies: HPI: dyspnea, struggling to breathe Denies: HPI: dyspnea, sudden onset Denies: HPI: hemoptysis Denies: HPI: wheezing, severe Denies: HPI: wheezing, worsening Denies: MEDS: not using a bronchodilator inhaler Denies: MEDS: ran out of inhaler medication Denies: PMH: hospitalization for similar symptoms in the past /herlinda/ ANTONIO GONZALEZ Signed: 10/31/2023 00:31 Receipt Acknowledged By: 11/01/2023 15:56 /herlinda/ JR JOSEPH Nurse Practitioner 11/02/2023 08:37 /herlinda/ CAMDEN NINO, MSN, RN, CNL PRIMARY CARE TEAM NURSE ANTONIO GONZALEZ [facility]
--- OUTSIDE RECORDS SUMMARY | 2024-08-18 13:08 | XMS_ITS ---
Author Name [facility] [place] Address [address] [place] [address] Care Team Providers Care Business Law Instructor Name Role Phone ALEXANDR YODER Primary Care [...] LYLE (WNR) MEDICARE ADVANTAGE HUMAN [facility] [employer] Mar 23, 2023 [id number] [phone] Ezekiel WILKERSON PATIENT Selected Encounter This section includes the information on record at [place] for the Encounter. Date/Time Encounter Type Encounter Description Reason Provider Source Oct 15, 2023 02:29 PM Outpatient Encounter HT NON-VIDEO MONITORING ICD-10-CM E66.01 Morbid (severe) obesity due to excess calories ETTA,ALEC L IHE Encounter Template Text not used by [place] Assessments - Encounter Diagnoses This section includes the primary and secondary diagnoses documented for the Encounter. Date/Time Primary/Secondary Diagnosis Diagnosis Name Provider Source Oct 15, 2023 02:32 PM PRIMARY Morbid (severe) obesity due to excess calories ANTONIO ZHANG [facility] [place] [facility] Oct 15, 2023 02:32 PM SECONDARY Body mass index [BMI] 40.0-44.9, adult ANTONIO ZHANG [facility] [place] [facility] Plan of Treatment: Future Appointments (+ 6 months) and Future Tests (+/- 45 days) The Plan of Treatment section includes future care activities for the patient [facility] [place] [facility] This section includes future appointments and future orders which are active, pending or scheduled. Future Appointments This section includes appointments that were scheduled to occur 6 months from the date of the Encounter, up to a maximum of 20 appointments. The data comes from all [facility] facilities. Appointment Date/Time Appointment Type Appointme nt Facility Name Oct 29, 2023 01:30 PM AMBULATORY - PSYCHIATRY [place] [facility] [place] [facility] Nov 05, 2023 11:00 AM AMBULATORY - MEDICINE [place] [facility] [place] [facility] Nov 08, 2023 02:00 PM AMBULATORY - MEDICINE [place] [facility] [place] [facility] Nov 23, 2023 02:45 PM AMBULATORY - MEDICINE [place] [facility] [place] [facility] Dec 09, 2023 01:30 PM AMBULATORY - MEDICINE [place] [facility] [place] [facility] [place] Dec 09, 2023 03:00 PM AMBULATORY - MEDICINE [place] [facility] [place] [facility] [place] Dec 17, 2023 01:00 PM AMBULATORY - PSYCHIATRY [place] [facility] [place] [facility] [place] Dec 17, 2023 01:30 PM AMBULATORY - PSYCHIATRY [place] [facility] [place] [facility] [place] January 05, 2024 11:30 AM AMBULATORY - MEDICINE [place] [facility] [place] [facility] [place] [place] January 21, 2024 01:30 PM AMBULATORY - PSYCHIATRY [place] [facility] [place] [facility] [place] [place] Feb 16, 2024 01:30 PM AMBULATORY - MEDICINE [place] [facility] [place] [facility] Feb 18, 2024 03:00 PM AMBULATORY - MEDICINE [place] [facility] [place] [facility] Mar 03, 2024 01:30 PM AMBULATORY - PSYCHIATRY [place] [facility] [place] [facility] [place] Apr 06, 2024 08:30 AM AMBULATORY - MEDICINE [place] [facility] [place] [facility] [place] Social History: Smoking Status (Most current) and [...] place. Date/Time Current Smoking Status Comment Artem it Apr 07, 2023 01:30 PM VA-TOBACCO FORMER USER [place] [facility] [place] [facility] Tobacco Use History This section includes a history of the smoking, or tobacco-related health factors, that were collected on or before the date of the Encounter. The data comes from the [place] facility where the Encounter took place. Date/Time Smoking Status/Tobac co Use Comment Facility Apr 07, 2023 01:30 PM VA-TOBACCO QUIT 5 TO < 15 YRS [facility] [place] [facility] May 07, 2022 09:30 AM VA-TOBACCO FORMER USER [facility] [place] [facility] [place] [place] May 07, 2022 09:30 AM VA-TOBACCO QUIT 1 TO < 5 YRS [facility] [place] [facility] [place] May 15, 2021 08:45 AM VA-TOBACCO FORMER USER [place] [facility] [place] [facility] May 15, 2021 08:45 AM VA-TOBACCO QUIT 1 TO < 5 YRS [place] [facility] [place] [facility] [place] [place] Jun 04, 2020 10:30 AM VA-TOBACCO FORMER USER [place] [facility] [place] [facility] [place] [place] Jun 04, 2020 10:30 AM VA-TOBACCO QUIT < 1 YEAR [place] [facility] [place] [facility] [place] May 23, 2019 09:36 AM VA-TOBACCO DOESNT USE WI 30 MIN WAKEUP [place] [facility] [place] [facility] [place] [place] May 23, 2019 09:36 AM VA-TOBACCO USE 30 YEARS OR MORE [place] [facility] [place] [facility] [place] May 23, 2019 09:36 AM VA-TOBACCO USE ADVICE [place] [facility] [place] [facility] May 23, 2019 09:36 AM VA-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 USE 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 [facility] [place] [facility] [place] May 23, 2019 09:36 AM VA-TOBACCO USE MED NO [facility] [place] [facility] [place] May 23, 2019 09:36 AM VA-TOBACCO USER EVERY DAY [place] [facility] [place] [facility] [place] Apr 21, 2018 01:18 PM CURRENT SMOKER 1/2 pk a week [facility] Apr 21, 2018 01:18 PM V1-PT DECLINES REF TO TOBACCO CESS PRGM [facility] Apr 21, 2018 01:18 PM V1-PT DECLINES TOB ACCO CESSATION MEDS [facility] Apr 21, 2018 01:18 PM V1-PT THINKING ABO UT QUIT TOBACCO USE [facility] Oct 18, 2017 02:19 PM V1-PT NOT INTEREST ED IN QUIT TOBACCO USE [facility] Oct 04, 2017 01:55 PM CURRENT SMOKER .5 packs a day [facility] Advance Directives: All historical and current Section Date Range: From patient's date of to the date document was created. This section includes ALL of a patient's completed or amended [place] Advance and Rescinded Directives. The entries below indicate that a directive exists for the patient, but an actual copy is not included with this document. The data comes from all [place] facilities. Date Advance Directives Provider Source Feb 13, 2003 ADVANCE DIRECTIVE KAT OVIEDO [facility] Encounter Notes: All associated encounter notes This section contains the clinical notes associated to the Encounter. Date/Time Encounter Note(s) Provider Source Oct 15, 2023 02:31 PM NUTRITION NOTE: LOCAL TITLE: LOW INTENSITY/LOW ACUITY MONTHLY MONITOR NOTE STANDARD TITLE: NUTRITION NOTE DATE OF NOTE: OCT 15, 2023@14:31 ENTRY DATE: OCT 15, 2023@14:31:20 AUTHOR: ALEC QUILES EXP COSIGNER: URGENCY: STATUS: COMPLETED The is enrolled in the Home Telehealth (HT) program and continues to be monitored via HT technology. The data sent by the is reviewed and analyzed by the HT staff, who provide ongoing case management and [place] health education while communicating and collaborating with the health care team as appropriate. This note covers a total of 30 minutes for the month monitored. Month monitored:SEPTEMBER 2023 Dx: E66.01 severe obesity /es/ ALEC QUILES RD,LDN STAFF DIETITIAN Signed: 10/15/2023 14:34 ALEC QUILES [facility]
--- OUTSIDE RECORDS SUMMARY | 2024-08-18 13:08 | XMS_ITS ---
Author Name [facility] [place] Address [address] [place] [address] Care Team Providers Care Button Sawyer Name Role Phone ALEXANDR YODER Primary Care [...] LYLE (WNR) MEDICARE ADVANTAGE [facility]UMAN [facility] Mar 23, 2023 [id number] [phone] Ezekiel WILKERSON PATIENT Selected Encounter This section includes the information on record at [place] for the Encounter. Date/Time Encounter Type Encounter Description Reason Provider Source Oct 29, 2023 01:30 PM MTMS BY PHARM [facility] 15 [facility] - IND ICD-10-CM F32.A Depression, unspecified RAGUINDIN,JASP ER YOAN D E Encounter Template Text not used by [place] Assessments - Encounter Diagnoses This section includes the primary and secondary diagnoses documented for the Encounter. Date/Time Primary/Secondary Diagnosis Diagnosis Name Provider Source Oct 29, 2023 01:53 PM PRIMARY Depression, unspecified RAGUINDIN,JASP ER YOAN D [place] [facility] [place] [facility] Oct 29, 2023 01:53 PM SECONDARY Anxiety disorder, unspecified RAGUINDIN,JASP ER YOAN D [place] [facility] [place] [facility] Plan of Treatment: Future Appointments (+ 6 months) and Future Tests (+/- 45 days) The Plan of Treatment section includes future care activities for the patient [facility] [place] [facility] This section includes future appointments and future orders which are active, pending or scheduled. Future Appointments This section includes appointments that were scheduled to occur 6 months from the date of the Encounter, up to a maximum of 20 appointments. The data comes from all [place] treatment facilities. Appointment Date/Time Appointment Type Appointme nt Facility Name Nov 05, 2023 11:00 AM AMBULATORY - MEDICINE [place] [facility] [facility] Nov 08, 2023 02:00 PM AMBULATORY - MEDICINE [place] [facility] [facility] Nov 23, 2023 02:45 PM AMBULATORY - MEDICINE [place] [facility] [facility] Dec 09, 2023 01:30 PM AMBULATORY - MEDICINE [place] [facility] [facility] Dec 09, 2023 03:00 PM AMBULATORY - MEDICINE [place] [facility] [facility] Dec 17, 2023 01:00 PM AMBULATORY - PSYCHIATRY [place] [facility] [place] [facility] Dec 17, 2023 01:30 PM AMBULATORY - PSYCHIATRY [place] [facility] [facility] January 05, 2024 11:30 AM AMBULATORY - MEDICINE [place] [facility] [facility] January 21, 2024 01:30 PM AMBULATORY - PSYCHIATRY [place] [facility] [facility] Feb 16, 2024 01:30 PM AMBULATORY - MEDICINE [place] [facility] [facility] Feb 18, 2024 03:00 PM AMBULATORY - MEDICINE [place] C [facility] [facility] Mar 03, 2024 01:30 PM AMBULATORY - PSYCHIATRY [place] [facility] [place] [facility] Apr 06, 2024 08:30 AM AMBULATORY - MEDICINE [place] C [facility] [facility] Apr 19, 2024 02:15 PM AMBULATORY - MEDICINE [place] C [facility] [facility] Social History: Smoking Status (Most current) and Tobacco Use (All prior to encounter date) This section includes the most current, and the historical, smoking and tobacco- related health factors from the [place] facility where the Encounter took place. Current Smoking Status This section includes the most current smoking, or tobacco-related health factor, from the [place] facility where the Encounter took place. Date/Time Current Smoking Status Comment Artem it Apr 07, 2023 01:30 PM VA-TOBACCO FORMER USER [place] [facility] [place] [facility] Tobacco Use History This section includes a history of the smoking, or tobacco-related health factors, that were collected on or before the date of the Encounter. The data comes from the [place] facility where the Encounter took place. Date/Time Smoking Status/Tobac co Use Comment Facility Apr 07, 2023 01:30 PM VA-TOBACCO QUIT 5 TO < 15 YRS [facility] [place] [facility] May 07, 2022 09:30 AM VA-TOBACCO FORMER USER [facility] [place] [facility] May 07, 2022 09:30 AM VA-TOBACCO QUIT 1 TO < 5 YRS [place] [facility] [facility] May 15, 2021 08:45 AM VA-TOBACCO FORMER USER [place] [facility] [facility] May 15, 2021 08:45 AM VA-TOBACCO QUIT 1 TO < 5 YRS [place] [facility] [place] [facility] Jun 04, 2020 10:30 AM VA-TOBACCO FORMER USER [place] [facility] [facility] Jun 04, 2020 10:30 AM VA-TOBACCO QUIT < 1 YEAR [place] [facility] [facility] May 23, 2019 09:36 AM VA-TOBACCO DOESNT USE WI 30 MIN WAKEUP [place] [facility] [facility] May 23, 2019 09:36 AM VA-TOBACCO USE 30 YEARS OR MORE [place] [facility] [facility] May 23, 2019 09:36 AM VA-TOBACCO USE ADVICE [place] [facility] [facility] May 23, 2019 09:36 AM VA-TOBACCO USE BAND SEWER NO [facility] [place] [facility] May 23, 2019 09:36 AM VA-TOBACCO USE MED NO [facility] [facility] May 23, 2019 09:36 AM VA-TOBACCO USER EVERY DAY [facility] [facility] Apr 21, 2018 01:18 PM CURRENT SMOKER 1/2 pk a week [place] [facility] [facility] Apr 21, 2018 01:18 PM V1-PT DECLINES REF TO TOBACCO CESS PRGM [facility] Apr 21, 2018 01:18 PM V1-PT DECLINES TOB ACCO CESSATION MEDS [facility] Apr 21, 2018 01:18 PM V1-PT THINKING ABO UT QUIT TOBACCO USE [facility] Oct 18, 2017 02:19 PM V1-PT NOT INTEREST ED IN QUIT TOBACCO USE [facility] Oct 04, 2017 01:55 PM CURRENT SMOKER .5 packs a day [facility] Advance Directives: All historical and current Section Date Range: From patient's date of to the date document was created. This section includes ALL of a patient's completed or amended [place] Advance and Rescinded Directives. The entries below indicate that a directive exists for the patient, but an actual copy is not included with this document. The data comes from all [place] facilities. Date Advance Directives Provider Source Feb 13, 2003 ADVANCE DIRECTIVE KAT OVIEDO [facility] Encounter Notes: All associated encounter notes This section contains the clinical notes associated to the Encounter. Date/Time Encounter Note(s) Provider Source Oct 29, 2023 01:24 PM PHARMACY MEDICATION MGT NOTE: LOCAL TITLE: CLINICAL PHARMACIST F/U NOTE STANDARD TITLE: PHARMACY MEDICATION MGT NOTE DATE OF NOTE: OCT 29, 2023@13:24 ENTRY DATE: OCT 29, 2023@13:24:27 AUTHOR: OLMAN AGUILAR COSIGNER: URGENCY: STATUS: COMPLETED Program: Clinical Pharmacy Provider/Medication Management Speciality: Mental Health ATTENDED BY: [X] Patient [ ] Spouse/Caregiver LENGTH OF SESSION: 30minutes -=-=-=-=-=-=-=-=-=-=-=-=-=-=- =-=-=-=-=-==-=-=-=-=-=-=-=-=- =-=-=-=-=-=-=-=-=-=-=- Name: MELISSAANDRZEJ GAMBINO : Mar ID: 68yo WHITE MALE -=-=-=-=-=-=-=-=-=-=-=-=-=-=- =-=-=-=-=-==-=-=-=-=-=-=-=-=- =-=-=-=-=-=Subjective- [place] was last seen on [id number] with the following pharmacotherapeutic plan: [ ] No changes [ ] Discontinue: [ ] Initiate: [X] Change the following: increase buspirone to 20mg bid Treating Dx(s): Depression and Anxiety INTERIM HISTORY pt reports to be doing okay. expressed being tired today, and has a few medical f/u soons to address this issue. reports he has been participating in a weight loss program, and has been noticing lately that he is in less pain and breathing better since losing a few pounds. also reports that he has made cabbaLaFourchette roles and is preparing for a [employer] meal, and is looking forward to start fishing soon. mentions having a plan to spend some time in [place] to fish this season. otherwise reports to be doing well, and requires no medication changes at this time. -=-=-=-=-=-=-=-=-=-=-=-=-=-=- =-=-=-=-=-==-=-=-=-=-=-=-=-=- =-=-=-=-=-=-Objective- Mental Status Exam Appearance: [X] Unremarkable [X] Appropriate to season [ ] Neatly groomed [ ] Somewhat disheveled [ ] Other: Behavior Mood/Affect: [X] Appropriate [ ] Irritable [X] Normal [ ] Euphoric [ ] Pleasant [ ] Provocative [ ] Bright [ ] Depressed [ ] Anxious [ ] Frustrated [...] 6. Supraventricular tachycardia 7. HTN - Hypertension ([facility] [id number]) 8. Anxiety disorder 9. H/O: gastric ulcer [...] TWICE DAILY NEEDED FOR WHEEZING 2) ALBUTEROL SO4 0.083% INHL 3ML INHALE 1 AMPULE IN ACTIVE NEBULIZER EVERY 6 HOURS NEEDED FOR BREATHING 3) ASPIRIN 325MG EC TAB TAKE ONE TABLET BY MOUTH ONCE ACTIVE DAILY TO PREVENT STROKE/HEART ATTACK 4) BUSPIRONE HCL 10MG TAB TAKE TWO TABLETS BY MOUTH ACTIVE TWICE DAILY FOR ANXIETY 5) CETIRIZINE HCL 10MG TAB TAKE ONE TABLET BY MOUTH ONCE ACTIVE DAILY FOR ALLERGIES 6) ESCITALOPRAM OXALATE 20MG TAB TAKE ONE TABLET BY ACTIVE MOUTH ONCE DAILY FOR MOOD/DEPRESSION 7) FLUTICAS 250/SALMETEROL 50 INHL DISK 60 INHALE 1 PUFF ACTIVE BY MOUTH EVERY 12 HOURS - RINSE MOUTH AFTER USE 8) LEVOTHYROXINE NA (SYNTHROID) 150MCG TAB TAKE ONE ACTIVE TABLET BY MOUTH EVERY MORNING 30 MINUTES BEFORE BREAKFAST FOR THYROID - TAKE ON AN EMPTY STOMACH WITH A FULL GLASS OF WATER 9) OMEPRAZOLE 20MG EC CAP TAKE ONE CAPSULE BY MOUTH ACTIVE EVERY MORNING 30 MINUTES BEFORE BREAKFAST 10) TRAZODONE HCL 50MG TAB TAKE ONE-HALF TABLET BY MOUTH ACTIVE AT BEDTIME NEEDED FOR SLEEP Active Non-VA Medications Status 1) Non-VA OTHER CAP/TAB BY MOUTH ACTIVE 11 Total Medications Past psychiatric medications include the following: [X] Per CPRS: - buspirone (2022-current) - citalopram ([id number]) - escitalopram (2022-current) - sertraline (2020) - trazodone ([id number]) [ ] Per Patient: Vitals: Ht: 65 in [165.1 cm] (07/26/2023 14:01) Wt: 266 lb [120.66 kg] (10/21/2023 11:25) BMI: 44.4 BP: 130/83 (07/26/2023 14:01) HR: 82 (07/26/2023 [...] following review of all active psychotropic and INSURANCE AGENCY MANAGER-active agents is to ensure pharmacotherapy is evaluated for safety and efficacy as they relate to behaviorial and physiological changes and outcomes Pt is stable on the following regimen and requires no changes at this time. Depression w/ possible seasonal component - escitalopram 20mg daily - trazodone 25mg hs prn sleep - buspirone 20mg bid PLAN 1. Pharmacotherapy [X] No changes [ ] Discontinue: [ ] Initiate: [ ] Change the followin. Labs/tests: n/a [...] Other: RTC Interval: every 4-6weeks Next Apt: [id number] was provided underwriter's contact information and instructed to contact underwriter as needed for any changes to scheduling or concerns otherwise. [place] is aware of actions to take if they feel unsafe, including calling the [place] Crisis Line (#[id number]); calling 911; or going to the nearest urgent care or emergency room. The is also aware of how to contact the clinic should the require additional services prior to the next appointment. Time spent on chart review, session, and documentation: 30minutes /es/ Olman Aguilar PharmD Clinical Pharmacist Practitioner Signed: 11/08/2023 12:57 OLMAN AGUILAR [place] [facility]
--- OUTSIDE RECORDS SUMMARY | 2024-08-18 13:08 | XMS_ITS | Encounter Summary ---
Author Name [facility] (MD) Organization [facility] of Vetera Affairs (MD) Address [address] [place] [address] Care Team Providers Care Marketing Communication Manager Name Role Phone ALEXANDR YODER Primary Care [...] Name Patient's Relationship to Policy [place] [facility] (WNR) MEDICARE ADVANTAGE HUMAN [facility] Mar 23, 2023 [id number] [phone] Ezekiel WILKERSON PATIENT Selected Encounter This section includes the information on record at MD for the Encounter. Date/Time Encounter Type Encounter Description Reason Pro vider Source Oct 21, 2023 02:59 PM Outpatient Encounter TELEPHONE/MEDICINE E Encounter Template Text not used by MD Plan of Treatment: Future Appointments (+ 6 months) and Future Tests (+/- 45 days) The Plan of Treatment section includes future care activities for the patient from all MD treatmentfacilities. This section includes future appointments and future orders which are active, pending or scheduled. Future Appointments This section includes appointments that were scheduled to occur 6 months from the date of the Encounter, up to a maximum of 20 appointments. The data comes from all MD treatment facilities. Appointment Date/Time Appointment Type Appointme nt Facility Name Oct 29, 2023 01:30 PM AMBULATORY - [facility]IAT[facility] [place] [facility] Nov 05, 2023 11:00 AM AMBULATORY - MEDICINE [facility] [place] [facility] Nov 08, 2023 02:00 PM AMBULATORY - MEDICINE [facility] [place] [facility] Nov 23, 2023 02:45 PM AMBULATORY - MEDICINE [facility] [place] [facility] Dec 09, 2023 01:30 PM AMBULATORY - MEDICINE [facility] [place] [facility] Dec 09, 2023 03:00 PM AMBULATORY - MEDICINE [facility] [place] [facility] Dec 17, 2023 01:00 PM AMBULATORY [facility] PS[facility] [place] [facility] Dec 17, 2023 01:30 PM AMBULATORY [facility] [place] [facility] January 05, 2024 11:30 AM AMBULATORY - MEDICINE [facility] [place] [facility] January 21, 2024 01:30 PM AMBULATORY - PS[facility]IATRY [facility] [place] [facility] Feb 16, 2024 01:30 PM AMBULATORY - MEDICINE [facility] [place] [facility] Feb 18, 2024 03:00 PM AMBULATORY - MEDICINE [facility] [place] [facility] Mar 03, 2024 01:30 PM AMBULATORY - PS[facility]IAT[facility] [place] [facility] Apr 06, 2024 08:30 AM AMBULATORY - MEDICINE [facility] [place] [facility] Apr 19, 2024 02:15 PM AMBULATORY - MEDICINE [facility] [place] [facility] Vital Signs: All taken on the encounter date This section contains inpatient and outpatient Vital Signs collected on the date of the Encounter. Date/Time Temperature Pulse Blood Pressure Respiratory Rate SP02 Pain Height Weight Body Mass Index Source Oct 21, 2023 11:25 AM 266 44 [facility] [place] [facility] Social History: Smoking Status (Most current) and Tobacco Use (All prior to encounter date) This section includes the most current, and the historical, smoking and tobacco- related health factors from the MD facility where the Encounter took place. Current Smoking Status This section includes the most current smoking, or tobacco-related health factor, from the MD facility where the Encounter took place. Date/Time Current Smoking Status Comment Artem shukla Apr 07, 2023 01:30 PM VA-TOBACCO FORMER USER [facility] [place] [facility] Tobacco Use History This section includes a history of the smoking, or tobacco-related health factors, that were collected on or before the date of the Encounter. The data comes from the MD facility where the Encounter took place. Date/Time Smoking Status/Tobac co Use Comment Facility Apr 07, 2023 01:30 PM VA-TOBACCO QUIT 5 TO < 15 YRS [facility] [place] [facility] May 07, 2022 09:30 AM VA-TOBACCO FORMER USER [facility] [place] [facility] May 07, 2022 09:30 AM VA-TOBACCO QUIT 1 TO < 5 YRS [facility] [place] [facility] May 15, 2021 08:45 AM VA-TOBACCO FORMER USER [place] [facility] [place] [facility] May 15, 2021 08:45 AM VA-TOBACCO QUIT 1 TO < 5 YRS [facility] [place] [facility] Jun 04, 2020 10:30 AM VA-TOBACCO FORMER USER [place] [facility] [place] [facility] Jun 04, 2020 10:30 AM VA-TOBACCO QUIT < 1 YEAR [facility] [place] [facility] May 23, 2019 09:36 AM VA-TOBACCO DOESNT USE WI 30 MIN WAKEUP [facility] [place] [facility] May 23, 2019 09:36 AM VA-TOBACCO USE 30 YEARS OR MORE [facility] [place] [facility] May 23, 2019 09:36 AM VA-TOBACCO USE ADVICE [facility] [place] [facility] May 23, 2019 09:36 AM VA-TOBACCO USE PIE FILLING MIXER NO [facility] [place] [facility] May 23, 2019 09:36 AM VA-TOBACCO USE MED NO [facility] [place] [facility] May 23, 2019 09:36 AM VA-TOBACCO USER EVERY DAY [facility] [place] [facility] Apr 21, 2018 01:18 PM CURRENT SMOKER 1/2 pk a week [facility] [place] [facility] Apr 21, 2018 01:18 PM V1-PT DECLINES REF TO TOBACCO CESS PRGM [place] [facility] [place] [facility] Apr 21, 2018 01:18 PM V1-PT DECLINES [facility]B [facility] Apr 21, 2018 01:18 PM V1-PT THINKING ABO UT QUIT [facility] Oct 18, 2017 02:19 PM V1-PT NOT INTEREST ED IN QUIT [facility] Oct 04, 2017 01:55 PM CURRENT SMOKER .5 packs a day [facility] Advance Directives: All historical and current Section Date Range: From patient's date of to the date document was created. This section includes ALL of a patient's completed or amended MD Advance and Rescinded Directives. The entries below indicate that a directive exists for the patient, but an actual copy is not included with this document. The data comes from all MD facilities. Date Advance Directives Provider Source Feb 13, 2003 ADVANCE DIRECTIVE KAT OVIEDO [facility] Encounter Notes: All associated encounter notes This section contains the clinical notes associated to the Encounter. Date/Time Encounter Note(s) Provider Source Oct 21, 2023 02:59 PM NUTRITION NOTE: LOCAL TITLE: LOW INTENSITY/LOW ACUITY NOTE STANDARD TITLE: NUTRITION NOTE DATE OF NOTE: OCT 21, 2023@14:59 ENTRY DATE: OCT 26, 2023@14:59:46 AUTHOR: ALEC QUILES EXP COSIGNER: URGENCY: STATUS: COMPLETED Patient is actively enrolled in the Home [employer] Weight Management program and is monitored with an in-home messaging device. Monthly data summary is below. Pt identified using two forms of ID: full name and birthdate. WEIGHT HISTORY: 10/21/2023 07:14 266.0 Peripheral 10/20/2023 08:02 266.0 Peripheral 10/19/2023 09:31 248.0 Peripheral 10/18/2023 08:06 260.5 Peripheral 10/17/2023 10:23 263.0 Peripheral 10/16/2023 09:29 266.5 Peripheral 10/15/2023 12:34 266.0 Peripheral 10/14/2023 08:48 229.5 Peripheral 10/13/2023 07:25 256.5 Peripheral 10/12/2023 07:30 245.0 Peripheral 10/11/2023 06:49 266.0 Peripheral 10/10/2023 07:37 260.5 Peripheral 10/09/2023 12:06 264.5 Peripheral 10/09/2023 11:43 264.5 Peripheral 10/08/2023 06:44 256.5 Peripheral 10/07/2023 06:11 257.5 Peripheral 10/06/2023 07:17 256.5 Peripheral 10/05/2023 08:08 267.0 Peripheral 10/04/2023 07:05 266.0 Peripheral 10/03/2023 09:52 266.5 Peripheral 10/02/2023 06:06 265.0 Peripheral 09/30/2023 05:33 266.5 Peripheral 09/29/2023 07:56 254.5 Peripheral 09/28/2023 04:55 263.0 Peripheral 09/27/2023 06:32 264.0 Peripheral 09/26/2023 09:23 269.0 Peripheral 09/25/2023 08:45 269.0 Peripheral 09/24/2023 07:17 264.5 Peripheral 09/23/2023 05:06 265.5 Peripheral 09/22/2023 06:00 262.0 Peripheral 09/21/2023 05:40 267.5 Peripheral INTERVENTION: Monthly data summary [place] has completed 9 sessions out of 90 sessions. Wt is down 1.5 pounds this past month. Wt is down 1 pound since start of L2 TeleMOVE! program on 09-12-23. Did not speak with pt. PLAN: Will continue to monitor the 's Home TeleM[employer]! transmissions and will follow-up, as appropriate. /herlinda/ ALEC QUILES RD,LDN STAFF DIETITIAN Signed: 10/26/2023 15:01 ALEC QUILES [facility]
--- OUTSIDE RECORDS SUMMARY | 2024-08-18 13:08 | XMS_ITS | Encounter Summary ---
Author Name [facility] of [facility] ([place]) Organization [facility] of [facility] [place] Address [address] [place] [address] Care Team Providers Care Financial Project Manager Name Role Phone ALEXANDR YODER Primary [...] Name Patient's Relationship to Policy [place] [facility] [facility] (WNR) MEDICARE ADVANTAGE HUMAN A INSUR [facility] Mar 23, 2023 [id number] [phone] Ezekiel WILKERSON PATIENT Selected Encounter This section includes the information on record at [place] for the Encounter. Date/Time Encounter Type Encounter Description Reason Pro vider Source Sep 09, 2023 10:48 AM Outpatient Encounter ADMIN PAT ACTIVTIES (MASNONCT) IHE Encounter Template Text not used by MI Plan of Treatment: Future Appointments (+ 6 months) and Future Tests (+/- 45 days) The Plan of Treatment section includes future care activities for the patient from all [place] treatmentfacilities. This section includes future appointments and [...] - MEDICINE [facility] [place] [facility] Sep 24, 2023 01:30 PM AMBULATORY - PSYCHIATRY [facility] [place] [facility] Sep 24, 2023 02:00 PM AMBULATORY - PS[facility]CHIATRY [facility] [place] [facility] Oct 29, 2023 01:30 PM AMBULATORY - PSYCHIATRY [facility] [place] [facility] Nov 05, 2023 11:00 AM AMBULATORY - MEDICINE [facility] [place] [facility] Nov 08, 2023 02:00 PM AMBULATORY - MEDICINE [facility] [place] [facility] Nov 23, 2023 02:45 PM AMBULATORY - MEDICINE [facility] [place] [facility] Dec 09, 2023 01:30 PM AMBULATORY - MEDICINE [facility] [place] [facility] Dec 09, 2023 03:00 PM AMBULATORY - MEDICINE [facility] [place] [facility] Dec 17, 2023 01:00 PM AMBULATORY - PSYCHIATRY [facility] [place] [facility] Dec 17, 2023 01:30 PM AMBULATORY - PSYCHIATRY [facility] [place] [facility] January 05, 2024 11:30 AM AMBULATORY - MEDICINE [facility] [place] [facility] January 21, 2024 01:30 PM AMBULATORY - PSYCHIATRY [facility] [place] [facility] Feb 16, 2024 01:30 PM AMBULATORY - MEDICINE [facility] [place] [facility] Feb 18, 2024 03:00 PM AMBULATORY - MEDICINE [facility] [place] [facility] Mar 03, 2024 01:30 PM AMBULATORY - PSYCHIATRY [facility] [place] [facility] Social History: Smoking Status (Most current) [...] 07, 2023 01:30 PM VA-TOBACCO FORMER USER [facility] [place] [facility] Tobacco Use History This section includes a history of the smoking, or tobacco-related health factors, that were collected on or before the date of the Encounter. The data comes from the [facility] where the Encounter took place. Date/Time Smoking Status/Tobac co Use Comment Facility Apr 07, 2023 01:30 PM VA-TOBACCO QUIT 5 TO < 15 YRS [place] [facility] [place] [facility] May 07, 2022 09:30 AM VA-TOBACCO FORMER USER [place] [facility] [place] [facility] May 07, 2022 09:30 AM VA-TOBACCO QUIT 1 TO < 5 YRS [place] [facility] [place] [facility] May 15, 2021 08:45 AM VA-TOBACCO FORMER USER [place] [facility] [place] [facility] May 15, 2021 08:45 AM VA-TOBACCO QUIT 1 TO < 5 YRS [place] [facility] [place] [facility] Jun 04, 2020 10:30 AM VA-TOBACCO FORMER USER [place] [facility] [place] [facility] Jun 04, 2020 10:30 AM VA-TOBACCO QUIT < 1 YEAR [place] [facility] [place] [facility] May 23, 2019 09:36 AM VA-TOBACCO DOESNT USE WI 30 MIN WAKEUP [facility] May 23, 2019 09:36 AM VA-TOBACCO USE 30 YEARS OR MORE [place] [facility] [place] [facility] May 23, 2019 09:36 AM VA-TOBACCO USE ADVICE [facility] May 23, 2019 09:36 AM VA-TOBACCO USE 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 PREVENTION 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 [facility] May 23, 2019 09:36 AM VA-TOBACCO USE MED NO [place] [facility] [place] [facility] May 23, 2019 09:36 AM VA-TOBACCO USER EVERY DAY [place] [facility] [place] [facility] Apr 21, 2018 01:18 PM CURRENT SMOKER 1/2 pk a week [place] [facility] [place] [facility] Apr 21, 2018 01:18 PM V1-PT DECLINES REF TO TOBACCO CESS PRGM [place] [facility] [place] [facility] Apr 21, 2018 01:18 PM V1-PT DECLINES TOB ACCO CESSATION MEDS [place] [facility] [place] [facility] Apr 21, 2018 01:18 PM V1-PT THINKING ABO UT [facility] Oct 18, 2017 02:19 PM V1-PT NOT INTEREST ED IN QUIT [facility] Oct 04, 2017 01:55 PM CURRENT SMOKER .5 packs a day [facility] Advance Directives: All historical and current [...] Feb 13, 2003 ADVANCE DIRECTIVE KAT OVIEDO [facility] Encounter Notes: All associated encounter notes This section contains the clinical notes associated to the Encounter. Date/Time Encounter Note(s) Provider Source Sep 13, 2023 08:45 AM ADDENDUM: LOCAL TITLE: Addendum STANDARD TITLE: ADDENDUM DATE OF NOTE: SEP 13, 2023@08:45:59 ENTRY DATE: SEP 13, 2023@08:46 AUTHOR: ALEC QUILES EXP COSIGNER: URGENCY: STATUS: COMPLETED Forwarding to Bruno Zhang [employer], to assist [place]. Thank you. /stefania QUILES RD,LDN STAFF DIETITIAN Signed: 09/13/2023 08:46 Receipt Acknowledged By: 09/13/2023 09:31 /herlinda/ NATONIO ZHANG === --- Original Document --- 09/09/23 CCC: SCHEDULING ADMINISTRATION: Patient Demographics Patient Name: ANDRZEJ WILKERSON Patient Primary Phone: [phone] Patient Primary Address: [address] [place] [id number] Patient : 1955 Patient Age: 68 Caller/Recipient Relation to Patient: Self Administrative Administrative Note Reason: Other Administrative Note Comments: Patient is in need of a new Community Care consult for his Retinal Specialist. He has his next apt on and his current one is about to . Please advise /herlinda/ JOVANA HOOKER [facility] Signed: 09/09/2023 10:48 Receipt Acknowledged By: 09/10/2023 12:57 /es/ URVASHI DIAZ, RN, CNL PRIMARY CARE TEAM NURSE 09/10/2023 13:51 /es/ Cathie Del Angel RN Primary Care Staff Nurse 09/10/2023 ADDENDUM STATUS: COMPLETED Call back to to verify date of his upcoming appointment with the Retinal Specialist. has an appt on 11/07@14:00. A new CC Retinal Specialist consult placed and held for provider signature. XX While on the phone with [place]. He mentioned that he received a scale to monitor his weight to connect to his home telehealth equipment. [place] requesting assistance as he is unsure how to operate the new equipment. /herlinda/ URVASHI DIAZ, RN, CNL PRIMARY CARE TEAM NURSE Signed: 09/10/2023 13:49 Receipt Acknowledged By: 09/13/2023 08:45 /herlinda/ ALEC QUILES RD,LDN STAFF DIETITIALEC [facility] Sep 10, 2023 12:56 PM ADDENDUM: LOCAL TITLE: Addendum STANDARD TITLE: ADDENDUM DATE OF NOTE: SEP 10, 2023@12:56:04 ENTRY DATE: SEP 10, 2023@12:56:05 AUTHOR: CAMDEN NINO EXP COSIGNER: URGENCY: STATUS: COMPLETED Call back to [place] to verify date of his upcoming appointment with the Retinal Specialist. [place] has an appt on 11/07@14:00. A new CC Retinal Specialist consult placed and held for provider signature. XX While on the phone with . He mentioned that he received a scale to monitor his weight to connect to his home telehealth equipment. requesting assistance as he is unsure how to operate the new equipment. /herlinda/ URVASHI DIAZ, RN, CNL PRIMARY CARE TEAM NURSE Signed: 09/10/2023 13:49 Receipt Acknowledged By: 09/13/2023 08:45 /es/ ALEC QUILES RD,LDN STAFF DIETITIAN === --- Original Document --- 09/09/23 CCC: SCHEDULING ADMINISTRATION: Patient Demographics Patient Name: ANDRZEJ WILKERSON Patient Primary Phone: [phone] Patient Primary Address: [address] [place] [address] [place] [address] Patient : 1955 Patient Age: 68 Caller/Recipient Relation to Patient: Self Administrative Administrative Note Reason: Other Administrative Note Comments: Patient is in need of a new Community Care consult for his Retinal Specialist. He has his next apt on and his current one is about to . Please advise /es/ JOVANA HOOKER [facility] Signed: 09/09/2023 10:48 Receipt Acknowledged By: 09/10/2023 12:57 /es/ CAMDEN NINO, URVASHI, RN, GALDINO PRIMARY CARE TEAM NURSE 09/10/2023 13:51 /es/ Cathie Del Angel RN Primary Care Staff Nurse CAMDEN NINO [facility] Sep 09, 2023 10:48 AM ADMINISTRATIVE NOTE: LOCAL TITLE: CCC: SCHEDULING ADMINISTRATION STANDARD TITLE: ADMINISTRATIVE NOTE DATE OF NOTE: SEP 09, 2023@10:48:49 ENTRY DATE: SEP 09, 2023@10:48:49 AUTHOR: JOVANA OROZCO EXP COSIGNER: URGENCY: STATUS: COMPLETED CCC: SCHEDULING ADMINISTRATION Has ADDENDA Patient Demographics Patient Name: ANDRZEJ WILKERSON Patient Primary Phone: [phone] Patient Primary Address: [address] [place] [address] [address] [place] [id number] Patient : 1955 Patient Age: 68 Caller/Recipient Relation to Patient: Self Administrative Administrative Note Reason: Other Administrative Note Comments: Patient is in need of a new Community Care consult for his Retinal Specialist. He has his next apt on and his current one is about to . Please advise /herlinda/ JOVANA HOOKER [facility] Signed: 09/09/2023 10:48 Receipt Acknowledged By: 09/10/2023 12:57 /herlinda/ CAMDEN NINO, URVASHI, RN, CNL PRIMARY CARE TEAM NURSE 09/10/2023 13:51 /herlinda/ Cathie Del Angel RN Primary Care Staff Nurse 09/10/2023 ADDENDUM STATUS: COMPLETED Call back to to verify date of his upcoming appointment with the Retinal Specialist. [place] has an appt on 11/07@14:00. A new CC Retinal Specialist consult placed and held for provider signature. XX While on the phone with [place]. He mentioned that he received a scale to monitor his weight to connect to his home telehealth equipment. requesting assistance as he is unsure how to operate the new equipment. /herlinda/ URVASHI DIAZ, RN, CNL PRIMARY CARE TEAM NURSE Signed: 09/10/2023 13:49 Receipt Acknowledged By: 09/13/2023 08:45 /herlinda/ ALEC QUILES RD,LDN STAFF DIETITIAN 09/13/2023 ADDENDUM STATUS: COMPLETED Forwarding to Bruno Zhang [employer], to assist [place]. Thank you. /herlinda/ ALEC QUILES RD,RC STAFF DIETITIAN Signed: 09/13/2023 08:46 Receipt Acknowledged By: 09/13/2023 09:31 /herlinda/ ANTONIO ZHANG 09/13/2023 ADDENDUM STATUS: COMPLETED Called to assist with scale. stated he had sat down with it and figured it out yesterday. Verified in [employer] that was current on health check transmissions. is all set and current on participation. /herlinda/ ANTONIO ZHANG Signed: 09/13/2023 09:44 [facility] OR[facility]ZCO [place] [facility]
--- OUTSIDE RECORDS SUMMARY | 2024-08-18 13:08 | XMS_ITS | Encounter Summary ---
Author Name [place] Address [address] [place] [address] Care Team Providers Care Deputy Sheriff Name Role Phone ALEXANDR YODER Primary Care [...] LYLE (WNR) MEDICARE ADVANTAGE HUMAN [facility] Mar 23, 2023 [id number] [phone] Ezekiel WILKERSON PATIENT Selected Encounter This section includes the information on record at [place] for the Encounter. Date/Time Encounter Type Encounter Description Reason Provider Source Sep 17, 2023 11:30 AM DEBRIDE NAIL 6 OR MORE PODIATRY ICD-10-CM B35.1 ANTONIO Mims [facility] Encounter Template Text not used by [place] Assessments - Encounter Diagnoses This section includes the primary and secondary diagnoses documented for the Encounter. Date/Time Primary/Secondary Diagnosis Diagnosis Name Provider Source Sep 17, 2023 12:05 PM PRIMARY [facility] [place] [facility] Plan of Treatment: Future Appointments (+ 6 months) and Future Tests (+/- 45 days) The Plan of Treatment section includes future care activities for the patient from all [place] treatmentfacilities. This section includes future appointments and future orders which are active, pending or scheduled. Future Appointments This section includes appointments that were scheduled to occur 6 months from the date of the Encounter, up to a maximum of 20 appointments. The data comes from all [place] treatment facilities. Appointment Date/Time Appointment Type Appointme nt Facility Name Sep 24, 2023 01:30 PM AMBULATORY [place]RY [place] [facility] [place] [facility] Sep 24, 2023 02:00 PM AMBUL[facility]ORY [facility] [place] [facility] Oct 29, 2023 01:30 PM AMBULATORY [facility] PS[facility]ATRY [facility] [place] [facility] Nov 05, 2023 11:00 AM AMBULATORY - MEDICINE [place] [facility] [place] [facility] Nov 08, 2023 02:00 PM AMBULATORY - MEDICINE [place] [facility] [place] [facility] Nov 23, 2023 02:45 PM AMBULATORY - MEDICINE [place] [facility] [place] [facility] Dec 09, 2023 01:30 PM AMBULATORY - MEDICINE [place] [facility] [place] [facility] Dec 09, 2023 03:00 PM AMBULATORY - MEDICINE [place] [facility] [place] [facility] Dec 17, 2023 01:00 PM AMBULATORY - PS[facility]CHIATRY [facility] [place] [facility] Dec 17, 2023 01:30 PM AMBULATORY - PS[facility]CHIATRY [facility] [place] [facility] January 05, 2024 11:30 AM AMBULATORY - MEDICINE [place] [facility] [place] [facility] January 21, 2024 01:30 PM AMBULATORY - PS[facility]CHIATRY [facility] [place] [facility] Feb 16, 2024 01:30 PM AMBULATORY - MEDICINE [place] [facility] [place] [facility] Feb 18, 2024 03:00 PM AMBULATORY - MEDICINE [place] [facility] [place] [facility] Mar 03, 2024 01:30 PM AMBULATORY - PS[place]CHIATRY [place] [facility] [place] [facility] Social History: Smoking Status (Most current) and Tobacco Use (All prior to encounter date) This section includes the most current, and the historical, smoking and tobacco- related health factors from the [place] facility where the Encounter took place. Current Smoking Status This section includes the most current smoking, or tobacco-related health factor, from the [place] facility where the Encounter took place. Date/Time Current Smoking Status Comment [facility] Apr 07, 2023 01:30 PM VA-TOBACCO QUIT 5 TO < 15 YRS [facility] Tobacco Use History This section includes a history of the smoking, or tobacco-related health factors, that were collected on or before the date of the Encounter. The data comes from the [place] facility where the Encounter took place. Date/Time Smoking Status/Tobac co Use Comment [facility] Apr 07, 2023 01:30 PM VA-TOBACCO QUIT 5 TO < 15 YRS [place] [facility] [place] [facility] May 07, 2022 09:30 AM VA-TOBACCO FORMER USER [place] [facility] [place] [facility] May 07, 2022 09:30 AM VA-TOBACCO QUIT 1 TO < 5 YRS [place] [facility] [place] [facility] May 15, 2021 08:45 AM VA-TOBACCO FORMER USER [place] [facility] [place] [facility] May 15, 2021 08:45 AM VA-TOBACCO QUIT 1 TO < 5 YRS [place] [facility] [place] [facility] Jun 04, 2020 10:30 AM VA-TOBACCO FORMER USER [place] [facility] [place] [facility] Jun 04, 2020 10:30 AM VA-TOBACCO QUIT < 1 YEAR [place] [facility] [place] [facility] May 23, 2019 09:36 AM VA-TOBACCO DOESNT USE WI 30 MIN WAKEUP [place] [facility] [place] [facility] May 23, 2019 09:36 AM VA-TOBACCO USE 30 YEARS OR MORE [place] [facility] [place] [facility] May 23, 2019 09:36 AM VA-TOBACCO USE ADVICE [place] [facility] [place] [facility] May 23, 2019 09:36 AM VA-TOBACCO USE 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 The entries below indicate that a directive exists for the patient, but an actual copy is not included with this document. The data comes from all [place] facilities. Date Advance Directives Provider Source Feb 13, 2003 ADVANCE DIRECTIVE KAT OVIEDO [facility] Encounter Notes: All associated encounter notes This section contains the clinical notes associated to the Encounter. Date/Time Encounter Note(s) Provider Source Sep 17, 2023 12:00 PM PODIATRY NOTE: LOCAL TITLE: PODIATRY NOTE STANDARD TITLE: PODIATRY NOTE DATE OF NOTE: SEP 17, 2023@12:00 ENTRY DATE: SEP 17, 2023@12:00:39 AUTHOR: ANTONIO SANCHEZ EXP COSIGNER: URGENCY: STATUS: COMPLETED S) 68 y/o male referred for mycotic nails. Last seen Jan 2023 PMH: Active problems - Computerized Problem List is the source for the followin. Supraventricular tachycardia 05/13/21 [facility] 2. HTN - Hypertension ([facility] [id number]) 3. Anxiety disorder 4. H/O: gastric ulcer reports approximately 15 years ago. 5. Steatosis of liver 05/2019 - Liver labs - wnl 6. Partial tear, knee, anterior cruciate ligament s/p fall - right knee trauma ( seen [facility]/ 05/23/19 06/07/19 - MRI - [facility] - anterior Cruciate ligament tear Orthopedical surgical consult - 7. Pain in right knee 8. Bilateral knee pain MED:DICLOFENAC NA 1% XRAY - Normal TREAT - PT/ Rehab MED 9. Chronic kidney disease stage 2 GFR 54 10. Ocular rosacea 11. Radioactive iodine-induced hypothyroidism MED:LEVOTHYROXINE NA (SYNTHROID) 0.15MG 12. Tobacco use stopped smoking 06/2019 ( required for knee surgery ) 13. Obesity 14. Patient requires hospitalization sent to [facility] - for DVT ( chest PAIN) 15. History of surgery Mastoid - left ear - in [facility] [place] right knee ? 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 Chronic obstructive lung disease MED: ALBUTEROL 100/IPRATRO, ALBUTEROL 90MCG 17. [facility] 18. Obesity 19. H/O: Deep vein thrombosis per pt report - upper arm ( afer iv- non [place] ) 20. Adult screening status HEMOGLOBIN A1C 6.0 ( 2017) 10/2017 AAA - mildly aneurysmal at 3.0 cm in diameter. HepC Ab NON-REACTIVE Allergies: BEE STINGS, PENICILLIN, DOXYCYCLINE O) Integumentary: nails mildly thick, yellow, brittle. Left hallux nail more hypertrophic and thicker with subungual debris Skin intact, no lesions or rash PV: DP 1/4, PT 1/4 cft 2 sec, no edema, no hair growth Sensory: good tactile, positional, no numbness MSK: ROM wnl, strength 5/5, no gross abnormalities A) Onychomycosis P) foot exam nails debrided x 10 discussed foot care has clotrimazole nail soln topically to nails daily rtc 4 mos nail clinic [place] Active Outpatient Medications (including Supplies): Active Outpatient Medications Status 1) ALBUTEROL SO4 0.083% INHL 3ML INHALE 1 AMPULE IN ACTIVE NEBULIZER EVERY 6 HOURS NEEDED FOR BREATHING 2) ASPIRIN 325MG EC TAB TAKE ONE TABLET BY MOUTH ONCE ACTIVE DAILY TO PREVENT STROKE/HEART ATTACK 3) BUSPIRONE HCL 15MG TAB TAKE ONE TABLET BY MOUTH TWICE ACTIVE DAILY 4) CETIRIZINE HCL 10MG TAB TAKE ONE TABLET BY MOUTH ONCE ACTIVE DAILY FOR ALLERGIES 5) CLOTRIMAZOLE 1% TOP SOLN APPLY DIRECTED TOPICALLY ACTIVE ONCE DAILY FOR FUNGAL INFECTION 6) ESCITALOPRAM OXALATE 20MG TAB TAKE ONE TABLET BY ACTIVE MOUTH ONCE DAILY FOR MOOD/DEPRESSION 7) FLUTICAS 100/SALMETEROL 50 INHL DISK 60 INHALE 1 PUFF ACTIVE BY MOUTH TWICE DAILY - RINSE MOUTH AFTER USE 8) LEVOTHYROXINE NA (SYNTHROID) 150MCG TAB TAKE ONE ACTIVE TABLET BY MOUTH EVERY MORNING 30 MINUTES BEFORE BREAKFAST FOR THYROID - TAKE ON AN EMPTY STOMACH WITH A FULL GLASS OF WATER 9) OMEPRAZOLE 20MG EC CAP TAKE ONE CAPSULE BY MOUTH ACTIVE (S) EVERY MORNING 30 MINUTES BEFORE BREAKFAST 10) TRAZODONE HCL 50MG TAB TAKE ONE-HALF TABLET BY MOUTH ACTIVE AT BEDTIME NEEDED FOR SLEEP Active Non-VA Medications Status 1) Non-VA OTHER CAP/TAB BY MOUTH ACTIVE 11 Total Medications Podiatry related medications reviewed /es/ ANTONIO SANCHEZ DPM SUPERVISOR FELTING Signed: 09/17/2023 12:05 ANTONIO SANCHEZ [facility]
--- OUTSIDE RECORDS SUMMARY | 2024-08-18 13:08 | XMS_ITS ---
Author Name [facility] [place] Address [address] [place] [address] Care Team Providers Care Custom Shop Worker Name Role Phone ALEXANDR YODER Primary Care [...] Name Patient's Relationship to Policy [place] [employer] [facility] (WNR) MEDICARE ADVANTAGE HUMAN A INSUR [employer] [facility] Mar 23, 2023 [id number] [phone] Ezekiel WILKERSON PATIENT Selected Encounter This section includes the information on record at [place] for the Encounter. Date/Time Encounter Type Encounter Description Reason Pro vider Source Oct 08, 2023 12:00 PM Outpatient Encounter COMMUNITY CARE CONSULT E Encounter Template Text not used by [place] Plan of Treatment: Future Appointments (+ 6 months) and Future Tests (+/- 45 days) The Plan of Treatment section includes future care activities for the patient from all [place] treatmentfacilities. This section includes future appointments and future orders which are active, pending or scheduled. Future Appointments This section includes appointments that were scheduled to occur 6 months from the date of the Encounter, up to a maximum of 20 appointments. The data comes from all [place] treatment facilities. Appointment Date/Time Appointment Type Appointme nt Facility Name Oct 29, 2023 01:30 PM AMBULATORY - PS[facility]CHIATRY [facility] [place] [facility] Nov 05, 2023 11:00 AM AMBULATORY - MEDICINE [facility] [place] [facility] Nov 08, 2023 02:00 PM AMBULATORY - MEDICINE [facility] [place] [facility] Nov 23, 2023 02:45 PM AMBULATORY - MEDICINE [facility] [place] [facility] Dec 09, 2023 01:30 PM AMBULATORY - MEDICINE [facility] [place] [facility] Dec 09, 2023 03:00 PM AMBULATORY - MEDICINE [facility] [place] [facility] Dec 17, 2023 01:00 PM AMBULATORY - PSYCHIATRY [facility] [place] [facility] Dec 17, 2023 01:30 PM AMBULATORY - PSYCHIATRY [facility] [place] [facility] January 05, 2024 11:30 AM AMBULATORY - MEDICINE [facility] [place] [facility] January 21, 2024 01:30 PM AMBULATORY - PSYCHIATRY [facility] [place] [facility] Feb 16, 2024 01:30 PM AMBULATORY - MEDICINE [facility] [place] [facility] Feb 18, 2024 03:00 PM AMBULATORY - MEDICINE [facility] [place] [facility] Mar 03, 2024 01:30 PM AMBULATORY - PSYCHIATRY [facility] [place] [facility] Apr 06, 2024 08:30 AM AMBULATORY - MEDICINE [place] [facility] [place] [facility] Social History: Smoking Status (Most current) and Tobacco Use (All prior to encounter date) This section includes the most current, and the historical, smoking and tobacco- related health factors from the [place] facility where the Encounter took place. Current Smoking Status This section includes the most current smoking, or tobacco-related health factor, from the [place] facility where the Encounter took place. Date/Time Current Smoking Status Comment Facil it Apr 07, 2023 01:30 PM VA-TOBACCO FORMER USER [place] [facility] [place] [facility] Tobacco Use History This section includes a history of the smoking, or tobacco-related health factors, that were collected on or before the date of the Encounter. The data comes from the [place] facility where the Encounter took place. Date/Time Smoking Status/Tobac co Use Comment Facility Apr 07, 2023 01:30 PM VA-TOBACCO QUIT 5 TO < 15 YRS [place] [facility] [place] [facility] May 07, 2022 09:30 AM VA-TOBACCO FORMER USER [place] [facility] [place] [facility] May 07, 2022 09:30 AM VA-TOBACCO QUIT 1 TO < 5 YRS [place] [facility] [place] [facility] May 15, 2021 08:45 AM VA-TOBACCO FORMER USER [place] [facility] [place] [facility] May 15, 2021 08:45 AM VA-TOBACCO QUIT 1 TO < 5 YRS [place] [facility] [place] [facility] Jun 04, 2020 10:30 AM VA-TOBACCO FORMER USER [place] [facility] [place] [facility] Jun 04, 2020 10:30 AM VA-TOBACCO QUIT < 1 YEAR [place] [facility] [place] [facility] May 23, 2019 09:36 AM VA-TOBACCO DOESNT USE WI 30 MIN WAKEUP [facility] [place] [facility] May 23, 2019 09:36 AM VA-TOBACCO USE 30 YEARS OR MORE [place] [facility] [place] [facility] May 23, 2019 09:36 AM VA-TOBACCO USE ADVICE [facility] [place] [facility] May 23, 2019 09:36 AM 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 [place] [facility] [place] [facility] May 23, 2019 09:36 AM VA-TOBACCO USE MED NO [place] [facility] [place] [facility] May 23, 2019 09:36 AM VA-TOBACCO USER EVERY DAY [place] [facility] [place] [facility] Apr 21, 2018 01:18 PM CURRENT SMOKER 1/2 pk a week [place] [facility] [place] [facility] Apr 21, 2018 01:18 PM V1-PT DECLINES REF TO TOBACCO CESS PRGM [place] [facility] [place] [facility] Apr 21, 2018 01:18 PM V1-PT DECLINES TOB ACCO CESSATION MEDS [place] [facility] [place] [facility] Apr 21, 2018 01:18 PM V1-PT THINKING ABO UT QUIT TOBACCO USE [facility] [place] [facility] Oct 18, 2017 02:19 PM V1-PT NOT INTEREST ED IN QUIT TOBACCO USE [place] [facility] [place] [facility] Oct 04, 2017 01:55 PM CURRENT SMOKER .5 packs a day [facility] Advance Directives: All historical and current Section Date Range: From patient's date of to the date document was created. This section includes ALL of a patient's completed or amended [place] Advance and Rescinded Directives. The entries below indicate that a directive exists for the patient, but an actual copy is not included with this document. The data comes from all [place] facilities. Date Advance Directives Provider Source Feb 13, 2003 ADVANCE DIRECTIVE KAT OVIEDO [facility] Encounter Notes: All associated encounter notes This section contains the clinical notes associated to the Encounter. Date/Time Encounter Note(s) Provider Source Oct 08, 2023 12:00 PM NONVA CONSULT: LOCAL TITLE: COMMUNITY CARE-CONSULT RESULT NOTE STANDARD TITLE: NONVA CONSULT DATE OF NOTE: OCT 08, 2023@12:00 ENTRY DATE: OCT 18, 2023@09:33:58 AUTHOR: HENRY LAWS EXP COSIGNER: URGENCY: STATUS: COMPLETED VistA Imaging - Scanned Document SCANNED DOCUMENT SIGNATURE NOT REQUIRED Electronically Filed: 10/18/2023 by: HENRY LAWS IMMIGRATION SERVICES OFFICER HENRY LAWS [facility]
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
--- OUTSIDE RECORDS SUMMARY | 2024-08-18 13:09 | XMS_ITS ---
Author Name [facility] [place] Organization [facility] [place] [place] Address [address] [place] [address] Care Team Providers Care Mid Level Net Developer Name Role Phone ALEXANDR YODER Primary Care [...] Name Patient's Relationship to Policy [place] [facility] (WNR) MEDICARE ADVANTAGE HUMAN A [facility] Mar 23, 2023 [id number] [phone] Ezekiel WILKERSON PATIENT Selected Encounter This section includes the information on record at [place] for the Encounter. Date/Time Encounter Type Encounter Description Reason Pro vider Source Nov 23, 2023 12:00 PM Outpatient Encounter COMMUNITY CARE CONSULT IHE Encounter Template Text not used by [place] Plan of Treatment: Future Appointments (+ 6 months) and Future Tests (+/- 45 days) The Plan of Treatment section includes future care activities for the patient from all [place] treatmentfacilities. This section includes future appointments and future orders which are active, pending or scheduled. Future Appointments This section includes appointments that were scheduled to occur 6 months from the date of the Encounter, up to a maximum of 20 appointments. The data comes from all [place] treatment facilities. Appointment Date/Time Appointment Type Appointme nt Facility Name Dec 09, 2023 01:30 PM AMBULATORY - MEDICINE [place] C [facility] [place] [facility] Dec 09, 2023 03:00 PM AMBULATORY - MEDICINE [place] C [facility] [place] [facility] Dec 17, 2023 01:00 PM AMBULATORY - PSYCHIATRY [facility] [place] [facility] Dec 17, 2023 01:30 PM AMBULATORY - PSYCHIATRY [facility] [place] [facility] January 05, 2024 11:30 AM AMBULATORY - MEDICINE [place] C [facility] [place] [facility] January 21, 2024 01:30 PM AMBULATORY - PSYCHIATRY [facility] [place] [facility] Feb 16, 2024 01:30 PM AMBULATORY - MEDICINE VA C [facility] [place] [facility] Feb 18, 2024 03:00 PM AMBULATORY - MEDICINE VA C [facility] [place] [facility] Mar 03, 2024 01:30 PM AMBULATORY - PSYCHIATRY [facility] [place] [facility] Apr 06, 2024 08:30 AM AMBULATORY - MEDICINE [place] C [facility] [place] [facility] Apr 19, 2024 02:15 PM AMBULATORY - MEDICINE SC C [facility] [place] [facility] May 05, 2024 01:30 PM AMBULATORY - PSYCHIATRY SC [facility] [place] [facility] Social History: Smoking Status (Most current) and Tobacco Use (All prior to encounter date) This section includes the most current, and the historical, smoking and tobacco- related health factors from the [place] facility where the Encounter took place. Current Smoking Status This section includes the most current smoking, or tobacco-related health factor, from the [place] facility where the Encounter took place. Date/Time Current Smoking Status Comment Facil it Apr 07, 2023 01:30 PM SC-TOBACCO QUIT 5 TO < 15 YRS SC CNTR [place] [facility] Tobacco Use History This section includes a history of the smoking, or tobacco-related health factors, that were collected on or before the date of the Encounter. The data comes from the [place] facility where the Encounter took place. Date/Time Smoking Status/Tobac co Use Comment Facility Apr 07, 2023 01:30 PM SC-TOBACCO QUIT 5 TO < 15 YRS SC [facility] [place] [facility] May 07, 2022 09:30 AM VA-TOBACCO FORMER USER VA [facility] [place] [facility] May 07, 2022 09:30 AM VA-TOBACCO QUIT 1 TO < 5 YRS SC CNTR [place] [facility] May 15, 2021 08:45 AM VA-TOBACCO FORMER USER [place] CNTR [place] [facility] May 15, 2021 08:45 AM VA-TOBACCO QUIT 1 TO < 5 YRS [place] [facility] [place] [facility] Jun 04, 2020 10:30 AM VA-TOBACCO FORMER USER [facility] Jun 04, 2020 10:30 AM VA-TOBACCO QUIT < 1 YEAR [place] [facility] [place] 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 May 23, 2019 09:36 AM VA-TOBACCO USE MED NO [facility] [place] [facility] May 23, 2019 09:36 AM VA-TOBACCO USER EVERY DAY [facility] [place] [facility] Apr 21, 2018 01:18 PM CURRENT SMOKER 1/2 pk a week [facility] [place] [facility] Apr 21, 2018 01:18 PM V1-PT DECLINES REF TO TOBACCO CESS PRGM [place] [facility] [place] [facility] Apr 21, 2018 01:18 PM V1-PT DECLINES TOB ACCO CESSATION MEDS [place] [facility]TR [place] [facility] Apr 21, 2018 01:18 PM V1-PT THINKING ABO UT QUIT TOBACCO USE [facility] [place] [facility] Oct 18, 2017 02:19 PM V1-PT NOT INTEREST ED IN QUIT TOBACCO USE [place] [facility]TR [place] [facility] Oct 04, 2017 01:55 PM CURRENT SMOKER .5 packs a day [facility] Advance Directives: All historical and current Section Date Range: From patient's date of to the date document was created. This section includes ALL of a patient's completed or amended [place] Advance and Rescinded Directives. The entries below indicate that a directive exists for the patient, but an actual copy is not included with this document. The data comes from all [place] facilities. Date Advance Directives Provider Source Feb 13, 2003 ADVANCE DIRECTIVE KAT OVIEDO [facility] Encounter Notes: All associated encounter notes This section contains the clinical notes associated to the Encounter. Date/Time Encounter Note(s) Provider Source Nov 23, 2023 12:00 PM NONVA CONSULT: LOCAL TITLE: COMMUNITY CARE-CONSULT RESULT NOTE STANDARD TITLE: NONVA CONSULT DATE OF NOTE: NOV 23, 2023@12:00 ENTRY DATE: NOV 30, 2023@10:11:45 AUTHOR: BELLA MCKINNEY EXP COSIGNER: URGENCY: STATUS: COMPLETED VistA Imaging - Scanned Document SCANNED DOCUMENT SIGNATURE NOT REQUIRED Electronically Filed: 11/30/2023 by: BELLA HARO [place] [facility]
--- OUTSIDE RECORDS SUMMARY | 2024-08-18 13:09 | XMS_ITS ---
Author Name [facility] [place] Organization [place] Address [address] [place] [address] Care Team Providers Care Foreman/Project Manager Name Role Phone ALEXANDR YODER Primary [...] Name Patient's Relationship to Policy [place] [employer] [facility] (WNR) MEDICARE ADVANTAGE HUMAN A [facility] Mar 23, 2023 [id number] [phone] Ezekiel WILKERSON PATIENT Selected Encounter This section includes the information on record at [place] for the Encounter. Date/Time Encounter Type Encounter Description Reason Provider Source January 05, 2024 08:44 AM HC PRO PHONE CALL 5-10 MIN TELEPHONE PRIMARY CARE ICD-10-CM Z71.89 Other specified counseling CATHIE JOYCE Chucky Encounter Template Text not used by [place] Assessments - Encounter Diagnoses This section includes the primary and secondary diagnoses documented for the Encounter. Date/Time Primary/Secondary Diagnosis Diagnosis Name Provider Source January 05, 2024 08:44 AM PRIMARY Other specified counseling CATHIE JOYCE [place] [facility] [place] [facility] Plan of Treatment: Future Appointments (+ 6 months) and Future Tests (+/- 45 days) The Plan of Treatment section includes future care activities for the patient from all [place] treatmentfacilities. This section includes future appointments and future orders which are active, pending or scheduled. Future Appointments This section includes appointments that were scheduled to occur 6 months from the date of the Encounter, up to a maximum of 20 appointments. The data comes from all [place] treatment facilities. Appointment Date/Time Appointment Type Appointme nt Facility Name January 21, 2024 01:30 PM AMBULATORY - PS[place]CHIATRY [place] [facility] [place] [facility] Feb 16, 2024 01:30 PM AMBULATORY - MEDICINE [place] [facility] [place] [facility] Feb 18, 2024 03:00 PM AMBULATORY - MEDICINE [place] [facility] [place] [facility] Mar 03, 2024 01:30 PM AMBULATORY - PSYCHIATRY [place] [facility] [place] [facility] Apr 06, 2024 08:30 AM AMBULATORY - MEDICINE [place] [facility] [place] [facility] Apr 19, 2024 02:15 PM AMBULATORY - MEDICINE [place] [facility] [place] [facility] May 05, 2024 01:30 PM AMBULATORY - PSYCHIATRY [place] [facility] [place] [facility] Jun 13, 2024 09:30 AM AMBULATORY - MEDICINE [place] [facility] [place] [facility] Jun 19, 2024 02:00 PM AMBULATORY - MEDICINE [place] [facility] [place] [facility] Jun 21, 2024 01:30 PM AMBULATORY - PS[place]CHIATRY [place] [facility] [place] [facility] Jun 28, 2024 02:30 PM AMBULATORY - PS[place]CHIATRY [place] [facility] [place] [facility] Jul 04, 2024 11:00 AM AMBULATORY - MEDICINE [facility] [place] [facility] Vital Signs: All taken on the encounter date This section contains inpatient and outpatient Vital Signs collected on the date of the Encounter. Date/Time Temperature Pulse Blood Pressure Respiratory Rate SP02 Pain Height Weight Body Mass Index Source January 05, 2024 11:19 AM 98.1 78 126/83 18 91 2 261 44 [place] [facility] [place] [facility] Social History: Smoking Status (Most [...] 07, 2023 01:30 PM VA-TOBACCO FORMER USER [place] [facility] [place] [facility] Tobacco Use History This section includes a history of the smoking, or tobacco-related health factors, that were collected on or before the date of the Encounter. The data comes from the [place] facility where the Encounter took place. Date/Time Smoking Status/Tobac co Use Comment Facility Apr 07, 2023 01:30 PM VA-TOBACCO QUIT 5 TO < 15 YRS [place] [facility] [place] [facility] May 07, 2022 09:30 AM VA-TOBACCO FORMER USER [place] [facility] [place] [facility] May 07, 2022 09:30 AM VA-TOBACCO QUIT 1 TO < 5 YRS [place] [facility] [place] [facility] May 15, 2021 08:45 AM VA-TOBACCO FORMER USER [place] [facility] [place] [facility] May 15, 2021 08:45 AM VA-TOBACCO QUIT 1 TO < 5 YRS [place] [facility] [place] [facility] Jun 04, 2020 10:30 AM VA-TOBACCO FORMER USER [place] [facility] [place] [facility] Jun 04, 2020 10:30 AM VA-TOBACCO QUIT < 1 YEAR [place] [facility] [place] [facility] May 23, 2019 09:36 AM VA-TOBACCO DOESNT USE WI 30 MIN WAKEUP [place] [facility] [place] [facility] May 23, 2019 09:36 AM VA-TOBACCO USE 30 YEARS OR MORE [place] [facility] [place] [facility] May 23, 2019 09:36 AM VA-TOBACCO USE ADVICE [place] [facility] [place] [facility] May 23, 2019 09:36 AM 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 [place] [facility] [place] [facility] May 23, 2019 09:36 AM VA-TOBACCO USE MED NO [place] [facility] [place] [facility] May 23, 2019 09:36 AM VA-TOBACCO USER EVERY DAY [place] [facility] [place] [facility] Apr 21, 2018 01:18 PM CURRENT SMOKER 1/2 pk a week [place] [facility] [place] [facility] Apr 21, 2018 01:18 PM V1-PT DECLINES REF TO TOBACCO CESS PRGM [facility] Apr 21, 2018 01:18 PM V1-PT DECLINES TOB ACCO CESSATION MEDS [facility] Apr 21, 2018 01:18 PM V1-PT THINKING ABO UT QUIT TOBACCO USE [facility] Oct 18, 2017 02:19 PM V1-PT NOT INTEREST ED IN QUIT TOBACCO USE [facility] Oct 04, 2017 01:55 PM CURRENT SMOKER .5 packs a day [facility] Advance Directives: All historical and current Section Date Range: From patient's date of to the date document was created. This section includes ALL of a patient's completed or amended [place] Advance and Rescinded Directives. The entries below indicate that a directive exists for the patient, but an actual copy is not included with this document. The data comes from all [place] facilities. Date Advance Directives Provider Source Feb 13, 2003 ADVANCE DIRECTIVE KAT OVIEDO [facility] Encounter Notes: All associated encounter notes This section contains the clinical notes associated to the Encounter. Date/Time Encounter Note(s) Provider Source January 05, 2024 08:44 AM NURSING NOTE: LOCAL TITLE: NURSING/TELEPHONE STANDARD TITLE: NURSING NOTE DATE OF NOTE: JANUARY 05, 2024@08:44 ENTRY DATE: JANUARY 05, 2024@08:44:23 AUTHOR: CATHIE JOYCE COSIGNER: URGENCY: STATUS: COMPLETED RC to Vet at listed number- fiction and nonfiction writer prose wanted to f/u re: alert on 01/02. vet states he did go and see his pulmonary MD. He had a chest xray and was started on zpac and one of his inhaler medication was changed to a different kind. Was unclear to fiction and nonfiction writer prose was the diagnosis of chest xray was and reasoning for zpac- also Vet unclear what inhaler was changed as Vet wasnt certain. Vet told this fiction and nonfiction writer prose that he is feleing better but still has some pain because he took a tumble . After his fall his pain with breathing started. Vet states that his shoulder is bothering him and his neck hurts as well. Denies any difficulty breathing or nay associated pain with breathing. His main complaint during this call is pain in his shoulder/neck area. Vet is agreeable to a PCP appt at 1130hr. MSA to book appt and fiction and nonfiction writer prose will attempt to obtain pulmonary office notes. /herlinda/ Cathie Joyce RN Primary Care Staff Nurse Signed: 01/05/2024 08:49 CATHIE JOYCE [facility]
--- OUTSIDE RECORDS SUMMARY | 2024-08-18 13:09 | XMS_ITS ---
Author Name [facility] [place] Address [address] [place] [address] Care Team Providers Care Director Clinical Applications Name Role Phone ALEXANDR YODER Primary Care [...] Name Patient's Relationship to Policy [place] [employer] [facility] (WNR) MEDICARE ADVANTAGE HUMAN A INSUR [facility] Mar 23, 2023 [id number] [phone] Ezekiel WILKERSON PATIENT Selected Encounter This section includes the information on record at [place] for the Encounter. Date/Time Encounter Type Encounter Description Reason Pro vider Source Dec 09, 2023 08:28 AM Outpatient Encounter ADMIN PAT ACTIVTIES (MASNONCT) IHE Encounter Template Text not used by [place] Plan of Treatment: Future Appointments (+ 6 months) and Future Tests (+/- 45 days) The Plan of Treatment section includes future care activities for the patient from all [place] treatmentfacilities. This section includes future appointments and future orders which are active, pending or scheduled. Future Appointments This section includes appointments that were scheduled to occur 6 months from the date of the Encounter, up to a maximum of 20 appointments. The data comes from all [place] treatment facilities. Appointment Date/Time Appointment Type Appointme nt Facility Name Dec 17, 2023 01:00 PM AMBULATORY - PS[place]IATRY [place] [facility] [place] [facility] Dec 17, 2023 01:30 PM AMBULATORY - PSYCHIATRY [place] [facility] [place] [facility] January 05, 2024 11:30 AM AMBULATORY - MEDICINE [place] [facility] [place] [facility] January 21, 2024 01:30 PM AMBULATORY - PSYCHIATRY [place] [facility] [place] [facility] Feb 16, 2024 01:30 PM AMBULATORY - MEDICINE [place] [facility] [place] [facility] Feb 18, 2024 03:00 PM AMBULATORY - MEDICINE [place] [facility] [facility] Mar 03, 2024 01:30 PM AMBULATORY - PSYCHIATRY [place] [facility] [place] [facility] Apr 06, 2024 08:30 AM AMBULATORY - MEDICINE [place] [facility] [facility] Apr 19, 2024 02:15 PM AMBULATORY - MEDICINE [place] [facility] [facility] May 05, 2024 01:30 PM [facility] Vital Signs: All taken on the encounter date This section contains inpatient and outpatient Vital Signs collected on the date of the Encounter. Date/Time Temperature Pulse Blood Pressure Respiratory Rate SP02 Pain Height Weight Body Mass Index Source Dec 09, 2023 02:31 PM 97.7 94 138/82 16 97 2 252.8 42 [facility] Dec 09, 2023 01:30 PM 98 79 130/83 20 94 [facility] Social History: Smoking Status (Most current) and Tobacco Use (All prior to encounter date) This section includes the most current, and the historical, smoking and tobacco- related health factors from the [place] facility where the Encounter took place. Current Smoking Status This section includes the most current smoking, or tobacco-related health factor, from the [place] facility where the Encounter took place. Date/Time Current Smoking Status Rebeka shukla Apr 07, 2023 01:30 PM VA-TOBACCO [facility] Tobacco Use History This section includes a history of the smoking, or tobacco-related health factors, that were collected on or before the date of the Encounter. The data comes from the [place] facility where the Encounter took place. Date/Time Smoking Status/Tobac co Use Comment Facility Apr 07, 2023 01:30 PM VA-TOBACCO QUIT 5 TO < 15 YRS [place] [facility] [facility] May 07, 2022 09:30 AM VA-TOBACCO FORMER USER [place] [facility] [facility] May 07, 2022 09:30 AM VA-TOBACCO QUIT 1 TO < 5 YRS [place] [facility] [place] [facility] May 15, 2021 08:45 AM VA-TOBACCO FORMER USER [place] [facility] [place] [facility] May 15, 2021 08:45 AM VA-TOBACCO QUIT 1 TO < 5 YRS [place] [facility] [place] [facility] Jun 04, 2020 10:30 AM VA-TOBACCO FORMER USER [place] [facility] [facility] Jun 04, 2020 10:30 AM VA-TOBACCO QUIT < 1 YEAR [place] [facility] [place] [facility] May 23, 2019 09:36 AM VA-TOBACCO DOESNT USE WI 30 MIN WAKEUP [place] [facility] [place] [facility] May 23, 2019 09:36 AM VA-TOBACCO USE 30 YEARS OR MORE [place] [facility] [place] [facility] May 23, 2019 09:36 AM VA-TOBACCO USE ADVICE [place] [facility] [place] [facility] May 23, 2019 09:36 AM 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 [place] [facility] [place] [facility] May 23, 2019 09:36 AM VA-TOBACCO USE MED NO [place] [facility] [facility] May 23, 2019 09:36 AM VA-TOBACCO USER EVERY DAY [place] [facility] [place] [facility] Apr 21, 2018 01:18 PM CURRENT SMOKER 1/2 pk a week [place] [facility] [place] [facility] Apr 21, 2018 01:18 PM V1-PT DECLINES REF TO TOBACCO CESS PRGM [place] [facility] [place] [facility] Apr 21, 2018 01:18 PM V1-PT DECLINES TOB ACCO CESSATION MEDS [place] [facility] [place] [facility] Apr 21, 2018 01:18 PM V1-PT THINKING ABO UT QUIT TOBACCO USE [place] [facility] [place] [facility] Oct 18, 2017 02:19 PM V1-PT NOT INTEREST ED IN QUIT [facility] Oct 04, 2017 01:55 PM CURRENT SMOKER .5 packs a day [facility] Advance Directives: All historical and current Section Date Range: From patient's date of to the date document was created. This section includes ALL of a patient's completed or amended [place] Advance and Rescinded Directives. The entries below indicate that a directive exists for the patient, but an actual copy is not included with this document. The data comes from all [place] facilities. Date Advance Directives Provider Source Feb 13, 2003 ADVANCE DIRECTIVE KAT OVIEDO [facility] Encounter Notes: All associated encounter notes This section contains the clinical notes associated to the Encounter. Date/Time Encounter Note(s) Provider Source Dec 09, 2023 08:28 AM ADMINISTRATIVE NOT E: LOCAL TITLE: [facility]: SCHEDULING ADMINISTRATION STANDARD TITLE: ADMINISTRATIVE NOTE DATE OF NOTE: DEC 09, 2023@08:28:11 ENTRY DATE: DEC 09, 2023@08:28:11 AUTHOR: ROBERTO ADDISON EXP COSIGNER: URGENCY: STATUS: COMPLETED Patient Demographics Patient Name: ANDRZEJ WILKERSON Patient Primary Phone: [phone] Patient Primary Address: [address] [place] [address] Patient : 1955 Patient Age: 68 Call Back Number: [phone] Caller/Recipient Relation to Patient: Self Scheduling Scheduling Note Comments: Reference [facility] triage note 12/09/2023 FYI: PATIENT: RHEA [id number] Per [facility] manager control recommendations, the patient is to be seen within 24 hrs as a face to face w/PCP. The patient c/o hoarse voice. This proposal lead writer was unable to locate an open appointment slot. Please contact the patient to assist. Thank you Administrative Administrative Note Reason: Other Administrative Note Comments: pact /es/ ROBERTO HOOKER 1 [facility] AMSA Signed: 12/09/2023 08:28 Receipt Acknowledged By: 12/09/2023 08:29 /es/ CAMDEN NINO, URVASHI, RN, CNL PRIMARY CARE TEAM NURSE 12/09/2023 08:28 /es/ Cathie Del Angel, technical service specialist Staff Nurse ROBERTO ADDISON [facility]
--- OUTSIDE RECORDS SUMMARY | 2024-08-18 13:09 | XMS_ITS ---
Author Name [place] Address [address] [place] [address] Care Team Providers Care Electric Train Driver Name Role Phone ALEXANDR YODER Primary Care [...] Name Patient's Relationship to Policy [place] [employer] [facility] (WNR) MEDICARE ADVANTAGE HUMAN [facility] Mar 23, 2023 [id number] [phone] Ezekiel WILKERSON PATIENT Selected Encounter This section includes the information on record at [place] for the Encounter. Date/Time Encounter Type Encounter Description Reason Pro vider Source January 04, 2024 12:00 PM Outpatient Encounter COMMUNITY CARE CONSULT IHE Encounter Template Text not used by [place] Plan of Treatment: Future Appointments (+ 6 months) and Future Tests (+/- 45 days) The Plan of Treatment section includes future care activities for the patient from all [place] treatmentfacilities. This section includes future appointments and future orders which are active, pending or scheduled. Future Appointments This section includes appointments that were scheduled to occur 6 months from the date of the Encounter, up to a maximum of 20 appointments. The data comes from all [place] treatment facilities. Appointment Date/Time Appointment Type Appointme nt Facility Name January 05, 2024 11:30 AM AMBULATORY - MEDICINE [place] [place] [facility] January 21, 2024 01:30 PM AMBULATORY - PSYCHIATRY [place] [facility] [place] [facility] Feb 16, 2024 01:30 PM AMBULATORY - MEDICINE [place] [facility] [place] [facility] Feb 18, 2024 03:00 PM AMBULATORY - MEDICINE [place] [facility] [place] [facility] Mar 03, 2024 01:30 PM AMBULATORY - PSYCHIATRY [place] [facility] [place] [facility] Apr 06, 2024 08:30 AM AMBULATORY - MEDICINE [place] [facility] [place] [facility] Apr 19, 2024 02:15 PM AMBULATORY - MEDICINE [place] [facility] [place] [facility] May 05, 2024 01:30 PM AMBULATORY - PSYCHIATRY [place] [facility] [place] [facility] Jun 13, 2024 09:30 AM AMBULATORY - MEDICINE [place] [facility] [place] [facility] Jun 19, 2024 02:00 PM AMBULATORY - MEDICINE [place] [facility] [place] [facility] Jun 21, 2024 01:30 PM AMBULATORY - PSYCHIATRY [place] [facility] [place] [facility] Jun 28, 2024 02:30 PM AMBULATORY - PSYCHIATRY [place] [facility] [place] [facility] Jul 04, 2024 11:00 AM AMBULATORY - MEDICINE [place] [facility] [place] [facility] Social History: Smoking Status (Most current) and Tobacco Use (All prior to encounter date) This section includes the most current, and the historical, smoking and tobacco- related health factors from the [place] facility where the Encounter took place. Current Smoking Status This section includes the most current smoking, or tobacco-related health factor, from the [place] facility where the Encounter took place. Date/Time Current Smoking Status Comment [facility] Apr 07, 2023 01:30 PM VA-TOBACCO FOR[facility]ER [facility] Tobacco Use History This section includes a history of the smoking, or tobacco-related health factors, that were collected on or before the date of the Encounter. The data comes from the [place] facility where the Encounter took place. Date/Time Smoking Status/Tobac co Use Comment Facility Apr 07, 2023 01:30 PM VA-TOBACCO QUIT 5 TO < 15 YRS [place] [facility] [place] [facility] May 07, 2022 09:30 AM VA-TOBACCO FORMER USER [place] [facility] [place] [facility] May 07, 2022 09:30 AM VA-TOBACCO QUIT 1 TO < 5 YRS [place] [facility] [place] [facility] May 15, 2021 08:45 AM VA-TOBACCO FORMER USER [place] [facility] [place] [facility] May 15, 2021 08:45 AM VA-TOBACCO QUIT 1 TO < 5 YRS IN [place] [facility] Jun 04, 2020 10:30 AM VA-TOBACCO FORMER USER IN [place] [facility] Jun 04, 2020 10:30 AM VA-TOBACCO QUIT < 1 YEAR IN [place] [facility] May 23, 2019 09:36 AM VA-TOBACCO DOESNT USE WI 30 MIN WAKEUP IN [place] [facility] May 23, 2019 09:36 AM VA-TOBACCO USE 30 YEARS OR MORE IN [place] [facility] May 23, 2019 09:36 AM [facility]ACCO [facility] [place] [facility] May 23, 2019 09:36 AM VA-TOBACCO USE [place] MATE NO IN [place] [facility] May 23, 2019 09:36 AM VA-TOBACCO USE MED NO IN [place] [facility] May 23, 2019 09:36 AM VA-TOBACCO USER EVERY DAY IN [place] [facility] Apr 21, 2018 01:18 PM CURRENT SMOKER 1/2 pk a week IN [place] [facility] Apr 21, 2018 01:18 PM V1-PT DECLINES REF TO TOBACCO CESS PRGM [place] [facility] [place] [facility] Apr 21, 2018 01:18 PM V1-PT DECLINES TOB ACCO CESSATION MEDS IN [place] [place] [facility] Apr 21, 2018 01:18 PM V1-PT THINKING ABO UT QUIT TOBACCO USE [place] [facility] [place] [facility] Oct 18, 2017 02:19 PM V1-PT NOT INTEREST ED IN QUIT TOBACCO USE IN [place] [facility] Oct 04, 2017 01:55 PM CURRENT SMOKER .5 packs a day [place] [facility] Advance Directives: All historical and current Section Date Range: From patient's date of to the date document was created. This section includes ALL of a patient's completed or amended [place] Advance and Rescinded Directives. The entries below indicate that a directive exists for the patient, but an actual copy is not included with this document. The data comes from all [place] facilities. Date Advance Directives Provider Source Feb 13, 2003 ADVANCE DIRECTIVE KAT OVIEDO [facility] Encounter Notes: All associated encounter notes This section contains the clinical notes associated to the Encounter. Date/Time Encounter Note(s) Provider Source January 04, 2024 12:00 PM NONVA CONSULT: LOCAL TITLE: COMMUNITY CARE-CONSULT RESULT NOTE STANDARD TITLE: NONVA CONSULT DATE OF NOTE: JANUARY 04, 2024@12:00 ENTRY DATE: JANUARY 11, 2024@11:36:39 AUTHOR: ANGIE PATEL EXP COSIGNER: URGENCY: STATUS: COMPLETED VistA Imaging - Scanned Document SCANNED DOCUMENT SIGNATURE NOT REQUIRED Electronically Filed: 01/11/2024 by: ANGIE PATEL SENIOR PROJECT LEADER/TEAM LEAD ANGIE PATEL IN [facility]
--- OUTSIDE RECORDS SUMMARY | 2024-08-18 13:09 | XMS_ITS | Encounter Summary ---
Author Name [facility] [place] [facility] [place] Address [address] [place] [address] Care Team Providers Care Interventional Neuroradiologist Name Role Phone ALEXANDR YODER Primary Care [...] Name Patient's Relationship to Policy [place] [employer] [facility] (WNR) MEDICARE ADVANTAGE HUMAN A INSUR ANCE [facility] Mar 23, 2023 [id number] [phone] Ezekiel WILKERSON PATIENT Selected Encounter This section includes the information on record at [place] for the Encounter. Date/Time Encounter Type Encounter Description Reason Pro vider Source Dec 09, 2023 08:25 AM Outpatient Encounter TELEPHONE TRIAGE IHE Encounter Template Text not used by [place] Plan of Treatment: Future Appointments (+ 6 months) and Future Tests (+/- 45 days) The Plan of Treatment section includes future care activities for the patient from all [place] treatmentfacilities. This section includes future appointments and future orders which are active, pending or scheduled. Future Appointments This section includes appointments that were scheduled to occur 6 months from the date of the Encounter, up to a maximum of 20 appointments. The data comes from all [place] treatment facilities. Appointment Date/Time Appointment Type Appointme nt Facility Name Dec 17, 2023 01:00 PM AMBULATORY - PSYCHIATRY [facility] Dec 17, 2023 01:30 PM AMBULATORY - PS[place]CHIATRY [facility] [place] [facility] January 05, 2024 11:30 AM AMBULATORY - MEDICINE [place] [facility] [place] [facility] January 21, 2024 01:30 PM AMBULATORY - [facility]ATRY [facility] [place] [facility] Feb 16, 2024 01:30 PM AMBULATORY - MEDICINE [place] [facility] [place] [facility] Feb 18, 2024 03:00 PM AMBULATORY - MEDICINE [facility] [place] [facility] Mar 03, 2024 01:30 PM AMBULATORY - PS[facility]CHIATRY [facility] [place] [facility] Apr 06, 2024 08:30 AM AMBULATORY - MEDICINE [place] [facility] [place] [facility] Apr 19, 2024 02:15 PM AMBULATORY - MEDICINE [place] [facility] [place] [facility] May 05, 2024 01:30 PM [facility] Vital Signs: All taken on the encounter date This section contains inpatient and outpatient Vital Signs collected on the date of the Encounter. Date/Time Temperature Pulse Blood Pressure Respiratory Rate SP02 Pain Height Weight Body Mass Index Source Dec 09, 2023 02:31 PM 97.7 94 138/82 16 97 2 252.8 42 [facility] [place] [facility] Dec 09, 2023 01:30 PM 98 79 130/83 20 94 [place] [facility] [place] [facility] Social History: Smoking Status (Most current) and Tobacco Use (All prior to encounter date) This section includes the most current, and the historical, smoking and tobacco- related health factors from the [place] facility where the Encounter took place. Current Smoking Status This section includes the most current smoking, or tobacco-related health factor, from the [place] facility where the Encounter took place. Date/Time Current Smoking Status Comment Artem maloney Apr 07, 2023 01:30 PM VA-TOBACCO QUIT 5 TO < 15 YRS [facility] Tobacco Use History This section includes a history of the smoking, or tobacco-related health factors, that were collected on or before the date of the Encounter. The data comes from the [place] facility where the Encounter took place. Date/Time Smoking Status/Tobac co Use Comment Facility Apr 07, 2023 01:30 PM VA-TOBACCO QUIT 5 TO < 15 YRS [facility] [place] [facility] May 07, 2022 09:30 AM VA-TOBACCO FORMER USER [facility] [place] [facility] May 07, 2022 09:30 AM VA-TOBACCO QUIT 1 TO < 5 YRS [facility] [place] [facility] May 15, 2021 08:45 AM VA-TOBACCO FORMER USER [facility] [place] [facility] May 15, 2021 08:45 AM VA-TOBACCO QUIT 1 TO < 5 YRS [facility] [place] [facility] Jun 04, 2020 10:30 AM VA-TOBACCO FORMER USER [facility] [place] [facility] Jun 04, 2020 10:30 AM VA-TOBACCO QUIT < 1 YEAR [facility] [place] [facility] May 23, 2019 09:36 AM VA-TOBACCO DOESNT USE WI 30 MIN WAKEUP [facility] [place] [facility] May 23, 2019 09:36 AM VA-TOBACCO USE 30 YEARS OR MORE [facility] [place] [facility] May 23, 2019 09:36 AM VA-TOBACCO USE ADVICE [facility] [place] 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 May 23, 2019 09:36 AM VA-TOBACCO USE MED NO [facility] [place] [facility] May 23, 2019 09:36 AM VA-TOBACCO USER EVERY DAY [facility] [place] [facility] Apr 21, 2018 01:18 PM CURRENT SMOKER 1/2 pk a week [facility] [place] [facility] Apr 21, 2018 01:18 PM V1-PT DECLINES REF TO TOBACCO CESS PRGM [facility] [place] [facility] Apr 21, 2018 01:18 PM V1-PT DECLINES TOB ACCO CESSATION MEDS [facility] [place] [facility] Apr 21, 2018 01:18 PM V1-PT THINKING ABO UT QUIT TOBACCO USE [facility] [place] [facility] Oct 18, 2017 02:19 PM V1-PT NOT INTEREST ED IN QUIT TOBACCO USE [facility] [place] [facility] Oct 04, 2017 01:55 PM CURRENT SMOKER .5 packs a day [facility] Advance Directives: All historical and current Section Date Range: From patient's date of to the date document was created. This section includes ALL of a patient's completed or amended [place] Advance and Rescinded Directives. The entries below indicate that a directive exists for the patient, but an actual copy is not included with this document. The data comes from all [place] facilities. Date Advance Directives Provider Source Feb 13, 2003 ADVANCE DIRECTIVE KAT OVIEDO [facility] Encounter Notes: All associated encounter notes This section contains the clinical notes associated to the Encounter. Date/Time Encounter Note(s) Provider Source Dec 09, 2023 08:27 AM ADDENDUM: LOCAL TITLE: Addendum STANDARD TITLE: ADDENDUM DATE OF NOTE: DEC 09, 2023@08:27:19 ENTRY DATE: DEC 09, 2023@08:27:19 AUTHOR: CATHIE JOYCE EXP COSIGNER: URGENCY: STATUS: COMPLETED Please offer PCP appt. Can be booked [facility] PACT 6 PCP today or tomorrow /herlinda/ Cathie Joyce RN Primary Care Staff Nurse Signed: 12/09/2023 08:27 Receipt Acknowledged By: 12/09/2023 08:43 /herlinda/ JEANETTE RAMIREZ AMSA --- Original Document --- 12/09/23 CCC: CLINICAL TRIAGE: Patient Demographics Patient Name: ANDRZEJ WILKERSON Patient Primary Address: [address] [place] [id number] Patient Primary Phone: [phone] Patient : 1955 Patient Age: 68 Caller/Recipient Relation to Patient: Self Emergency Contact: ROBERTO MONTES Triage Summary Conducted triage/discussed symptoms Pain Score: 0 (No Pain) Utilized the Triage Tool: Yes Chief Complaint: Voice Is Hoarse System WHEN: Within 24 Hours Nurse's Recommendation / WHEN: Within 24 Hours System WHERE: Clinic Nurse's Recommendation / WHERE: Clinic/[facility] Patient Disposition Patient/Caregiver agrees to plan of care: Yes Nursing Plan and Disposition Referred Patient for In-Person Appt Transferred patient to Sched & Admin-Apt Nurse Summary Nurse Summary: Patient calls with concerns of changed voice x 10 days. No sore throat. No worse cough than his baseline COPD cough. Denies nasal congestion. States he has been having difficulty swallowing and this is not new, had a swallowing eval done. Has been having dry mouth and throat and using CPAP machine. Voice change does not improve during day, it is worse when first waking. Reports a white coating only on tongue, nonpainful. No recent antibiotic use. Patient in agreement with pcp appt w/in 24 hours. If no appts available he prefers PACT assistance vs going to . _ Clinical Contact Center Codes Clinic/Location: [facility] PHONE CCC RN TXCC Triage Complete Triage Date: 12/09/2023 7:21 AM Triage Note: Phone Triage [facility], 09 Dec 2023 12:16:07 +0000 [facility] Demographics 68 y/o Male Results CC: Voice Is Hoarse Software suggested: Within 24 Hours Software suggested follow-up location: Clinic, consider virtual care Values and Measures SBP: 121 mmHg Temperature: 98.6 Fahrenheit Pulse: 84 bpm Duration of CC: 10 Days Positive Responses HPI: hoarse voice, onset after choking HPI: hoarse voice, sudden onset VS: respiratory rate not taken Negative Responses Denies: HPI: aphasia, sudden onset Denies: HPI: dysphagia, unable to swallow saliva Denies: HPI: dyspnea Denies: HPI: facial or periorbital swelling Denies: HPI: foreign body sensation, throat Denies: HPI: hoarse voice, onset after insect bite or sting Denies: HPI: lip swelling Denies: HPI: mouth or throat swelling, sudden onset Denies: HPI: sore throat Denies: HPI: symptoms similar to past severe allergic reaction Denies: HPI: tongue swelling, rapid onset Denies: HPI: vomiting, episodic Denies: HPI: wheezing, new or worsening [place] Education Verbal Education Provided for: Hoarse Voice Home Care /es/ LUIS CARLOS FLORENTINO,RN [facility] RN Signed: 12/09/2023 08:25 Receipt Acknowledged By: 12/09/2023 08:28 /herlinda/ CAMDEN NINO, MSN, RN, CNL PRIMARY CARE TEAM NURSE * AWAITING SIGNATURE * JAYLIN,CATHIE ASTRIA [facility],CATHIE [place] [facility] Dec 09, 2023 08:25 AM RN PROGRESS NOTE: LOCAL TITLE: CCC: CLINICAL TRIAGE STANDARD TITLE: RN PROGRESS NOTE DATE OF NOTE: DEC 09, 2023@08:25:50 ENTRY DATE: DEC 09, 2023@08:25:50 AUTHOR: LUIS CARLOS PALOMINO COSIGNER: URGENCY: STATUS: COMPLETED CCC: CLINICAL TRIAGE Has ADDENDA Patient Demographics Patient Name: ANDRZEJ WILKERSON Patient Primary Address: [address] [place] [id number] Patient Primary Phone: [phone] Patient : 1955 Patient Age: 68 Caller/Recipient Relation to Patient: Self Emergency Contact: ROBERTO MONTES Triage Summary Conducted triage/discussed symptoms Pain Score: 0 (No Pain) Utilized the Triage Tool: Yes Chief Complaint: Voice Is Hoarse System WHEN: Within 24 Hours Nurse's Recommendation / WHEN: Within 24 Hours System WHERE: Clinic Nurse's Recommendation / WHERE: Clinic/[facility] Patient Disposition Patient/Caregiver agrees to plan of care: Yes Nursing Plan and Disposition Referred Patient for In-Person Appt Transferred patient to Sched & Admin-Apt Nurse Summary Nurse Summary: Patient calls with concerns of changed voice x 10 days. No sore throat. No worse cough than his baseline COPD cough. Denies nasal congestion. States he has been having difficulty swallowing and this is not new, had a swallowing eval done. Has been having dry mouth and throat and using CPAP machine. Voice change does not improve during day, it is worse when first waking. Reports a white coating only on tongue, nonpainful. No recent antibiotic use. Patient in agreement with pcp appt w/in 24 hours. If no appts available he prefers PACT assistance vs going to . _ Clinical Contact Center Codes Clinic/Location: V1 [facility] PHONE CCC RN TXCC Triage Complete Triage Date: 12/09/2023 7:21 AM Triage Note: Phone Triage [facility], 09 Dec 2023 12:16:07 +0000 [facility] Demographics 68 y/o Male Results CC: Voice Is Hoarse Software suggested: Within 24 Hours Software suggested follow-up location: Clinic, consider virtual care Values and Measures SBP: 121 mmHg Temperature: 98.6 Fahrenheit Pulse: 84 bpm Duration of CC: 10 Days Positive Responses HPI: hoarse voice, onset after choking HPI: hoarse voice, sudden onset VS: respiratory rate not taken Negative Responses Denies: HPI: aphasia, sudden onset Denies: HPI: dysphagia, unable to swallow saliva Denies: HPI: dyspnea Denies: HPI: facial or periorbital swelling Denies: HPI: foreign body sensation, throat Denies: HPI: hoarse voice, onset after insect bite or sting Denies: HPI: lip swelling Denies: HPI: mouth or throat swelling, sudden onset Denies: HPI: sore throat Denies: HPI: symptoms similar to past severe allergic reaction Denies: HPI: tongue swelling, rapid onset Denies: HPI: vomiting, episodic Denies: HPI: wheezing, new or worsening Education Verbal Education Provided for: Hoarse Voice Home Care /herlinda/ LUIS CARLOS PALOMINO BSN,RN [facility] RN Signed: 12/09/2023 08:25 Receipt Acknowledged By: 12/09/2023 08:28 /herlinda/ CAMDEN NINO, MSN, RN, CNL PRIMARY CARE TEAM NURSE 12/09/2023 09:57 /herlinda/ Cathie Joyce RN Primary Care Staff Nurse 12/09/2023 ADDENDUM STATUS: COMPLETED Please offer PCP appt. Can be booked wiht PACT 6 PCP today or tomorrow /stefania Joyce RN Primary Care Staff Nurse Signed: 12/09/2023 08:27 Receipt Acknowledged By: 12/09/2023 08:43 /herlinda/ JEANETTE AJ 12/09/2023 ADDENDUM STATUS: COMPLETED JEAN MARIE spoke with and is scheduled for today 12/09/23 at 1:30pm. /herlinda/ JEANETTE AJ Signed: 12/09/2023 08:44 LUIS CARLOS PALOMINO [facility]
--- OUTSIDE RECORDS SUMMARY | 2024-08-18 13:09 | XMS_ITS ---
Author Name [facility] [facility] [place] [facility] [place] [facility] [place] Address [address] [place] [id number] Care Team Providers Care Crank Hand Name Role Phone ALEXANDR YODER Primary Care [...] Name Patient's Relationship to Policy [place] [employer] [facility] (WNR) MEDICARE ADVANTAGE HUMAN A INSUR ANCE [facility] Mar 23, 2023 [id number] [phone] Ezekiel WILKERSON PATIENT Selected Encounter This section includes the information on record at [place] for the Encounter. Date/Time Encounter Type Encounter Description Reason Provider Source Dec 09, 2023 03:00 PM OFF/OP CONSLTJ NEW/EST HI 55 OTOLARYNGOLOGY/EN T ICD-10-CM R49.0 Dysphonia TED WALLACE E Encounter Template Text not used by [place] Assessments - Encounter Diagnoses This section includes the primary and secondary diagnoses documented for the Encounter. Date/Time Primary/Secondary Diagnosis Diagnosis Name Provider Source Dec 09, 2023 03:43 PM PRIMARY Dysphonia TED WALLACE [place] [facility] Dec 09, 2023 03:43 PM SECONDARY Chronic laryngitis TED WALLACE [place] [facility] [place] [facility] Plan of Treatment: Future Appointments (+ 6 months) and Future Tests (+/- 45 days) The Plan of Treatment section includes future care activities for the patient from [facility] [place] [facility]. This section includes future appointments and future orders which are active, pending or scheduled. Future Appointments This section includes appointments that were scheduled to occur 6 months from the date of the Encounter, up to a maximum of 20 appointments. The data comes from all [facility] facilities. Appointment Date/Time Appointment Type Appointme nt Facility Name Dec 17, 2023 01:00 PM AMBULATORY - PSYCHIATRY [place] [facility] [place] [facility] Dec 17, 2023 01:30 PM AMBULATORY - PS[place]CHIATRY [place] [facility] [place] [facility] January 05, 2024 11:30 AM AMBULATORY - MEDICINE [place] [facility] [place] [facility] January 21, 2024 01:30 PM AMBULATORY - PS[place]CHIATRY [place] [facility] [place] [facility] Feb 16, 2024 01:30 PM AMBULATORY - MEDICINE [place] [facility] [place] [facility] Feb 18, 2024 03:00 PM AMBULATORY - MEDICINE [place] [facility] [place] [facility] Mar 03, 2024 01:30 PM AMBULATORY - PS[place]CHIATRY [place] [facility] [place] [facility] Apr 06, 2024 08:30 AM AMBULATORY - MEDICINE [place] [facility] [place] [facility] Apr 19, 2024 02:15 PM AMBULATORY - MEDICINE [place] [facility] [place] [facility] May 05, 2024 01:30 PM AMBULATORY - PS[place]IATRY [place] [facility] [place] [facility] Vital Signs: All taken on the encounter date This section contains inpatient and outpatient Vital Signs collected on the date of the Encounter. Date/Time Temperature Pulse Blood Pressure Respiratory Rate SP02 Pain Height Weight Body Mass Index Source Dec 09, 2023 02:31 PM 97.7 94 138/82 16 97 2 252.8 42 [place] [facility] [place] [facility] [facility] Dec 09, 2023 01:30 PM 98 79 130/83 20 94 [place] [facility] [place] [facility] [facility] Social History: Smoking Status (Most current) and [...] VA-TOBACCO FORMER USER [place] [facility] [place] [facility] Tobacco Use History This section includes a history of the smoking, or tobacco-related health factors, that were collected on or before the date of the Encounter. The data comes from the [place] facility where the Encounter took place. Date/Time Smoking Status/Tobac co Use Comment Facility Apr 07, 2023 01:30 PM VA-TOBACCO QUIT 5 TO < 15 YRS [facility] [place] [facility] May 07, 2022 09:30 AM VA-TOBACCO FORMER USER [facility] [place] [facility] May 07, 2022 09:30 AM VA-TOBACCO QUIT 1 TO < 5 YRS [facility] [place] [facility] May 15, 2021 08:45 AM VA-TOBACCO FORMER USER [facility] [place] [facility] May 15, 2021 08:45 AM VA-TOBACCO QUIT 1 TO < 5 YRS [facility] [place] [facility] Jun 04, 2020 10:30 AM VA-TOBACCO FORMER USER [facility] [place] [facility] Jun 04, 2020 10:30 AM VA-TOBACCO QUIT < 1 YEAR [facility] [place] [facility] May 23, 2019 09:36 AM VA-TOBACCO DOESNT USE WI 30 MIN WAKEUP [place] [facility] [place] [facility] May 23, 2019 09:36 AM VA-TOBACCO USE 30 YEARS OR MORE [facility] [place] [facility] May 23, 2019 09:36 AM VA-TOBACCO USE ADVICE [facility] [place] [facility] May 23, 2019 09:36 AM VA-TOBACCO USE EXHIBIT CARPENTER NO [facility] [place] [facility] May 23, 2019 09:36 AM VA-TOBACCO USE MED NO [facility] [place] [facility] May 23, 2019 09:36 AM VA-TOBACCO USER EVERY DAY [facility] [place] [facility] Apr 21, 2018 01:18 PM CURRENT SMOKER 1/2 pk a week [facility] Apr 21, 2018 01:18 PM V1-PT DECLINES REF TO TOBACCO CESS [facility] Apr 21, 2018 01:18 PM V1-PT DECLINES TOB ACCO CESSATION [facility] Apr 21, 2018 01:18 PM V1-PT THINKING ABO UT QUIT TOBACCO USE [facility] Oct 18, 2017 02:19 PM V1-PT NOT INTEREST ED IN QUIT TOBACCO USE [facility] Oct 04, 2017 01:55 PM CURRENT [...] Feb 13, 2003 ADVANCE DIRECTIVE KAT OVIEDO [facility] Encounter Notes: All associated encounter notes This section contains the clinical notes associated to the Encounter. Date/Time Encounter Note(s) Provider Source Dec 09, 2023 03:13 PM OTOLARYNGOLOGY CONSULT: [facility] TITLE: CONSULT REPORT/OTOLARYNGOLOGY STANDARD TITLE: OTOLARYNGOLOGY CONSULT DATE OF NOTE: DEC 09, 2023@15:13 ENTRY DATE: DEC 09, 2023@15:13:11 AUTHOR: TED WALLACE COSIGNER: URGENCY: STATUS: COMPLETED CONSULT REQUESTED FROM ALEXANDR YODER DEC 09, 2023 ANDRZEJ WILKERSON is a 68 y/o FORMER smoker WHITE MALE, previously in [employer] FROM Feb TO Jun from [facility] [facility] [employer] [facility] [place], w/chief complaint of HOARSENESS X2 WEEKS 68-year-old male former smoker stopped 5 years ago with a 47-pgjc-edxn history presents with hoarseness x2 weeks. He states that 2 weeks ago he developed a significant URI. He did not require antibiotics but he had very significant hard barking cough. That resolved about a week to 10 days ago and now he only has his intermittent COPD cough but since that time he has noted that his regular voice has not come back. He states it is worse both in the morning and with use. It is froggy and not as strong with about half the strength of his normal voice. He has no new shortness of breath. He has no ear pain. He has no unintended weight loss. He did note that he has been very actively trying to lose weight and has lost 20 pounds in the last several months. He is edentulous and cannot eat meat or crusted bread but states that he feels discomfort when he drinks liquids. He is not choking. He does have COPD and is on multiple inhalers including albuterol and ipratropium nebulizer and albuterol. PMHx: Active problems - Computerized Problem List is the source for the followin. Harmon esophagus 2. Colonoscopy normal 3. Degenerative disc disease 4. Depression 5. Sleep apnea 6. Supraventricular tachycardia 7. HTN - Hypertension ([facility] [id number]) 8. Anxiety disorder 9. H/O: gastric ulcer [...] Deep vein thrombosis 24. Adult screening status Service Connected Disabilities with % Eligibility: HOUSEBOUND VERIFIED MEDS: Active Outpatient Medications (including Supplies): ALBUTEROL 3/IPRATROP 0.5MG/3ML INHL 3ML INHALE 1 AMPULE IN ACTIVE NEBULIZER TWICE DAILY NEEDED FOR WHEEZING ALBUTEROL 90MCG (CFC-F) 200D ORAL INHL INHALE 2 PUFFS BY ACTIVE MOUTH EVERY 4 HOURS NEEDED ALBUTEROL SO4 0.083% INHL 3ML INHALE 1 AMPULE IN NEBULIZER ACTIVE EVERY 6 HOURS NEEDED FOR BREATHING ASPIRIN 325MG EC TAB TAKE ONE TABLET BY MOUTH ONCE DAILY ACTIVE TO PREVENT STROKE/HEART ATTACK BUSPIRONE HCL 10MG TAB TAKE TWO TABLETS BY MOUTH TWICE ACTIVE DAILY FOR ANXIETY CETIRIZINE HCL 10MG TAB TAKE ONE TABLET BY MOUTH ONCE ACTIVE DAILY FOR ALLERGIES ESCITALOPRAM OXALATE 20MG TAB TAKE ONE TABLET BY MOUTH ACTIVE ONCE DAILY FOR MOOD/DEPRESSION FLUTICAS 250/SALMETEROL 50 INHL DISK 60 INHALE 1 PUFF BY ACTIVE MOUTH EVERY 12 HOURS - RINSE MOUTH AFTER USE LEVOTHYROXINE NA (SYNTHROID) 150MCG TAB TAKE ONE TABLET BY ACTIVE MOUTH EVERY MORNING 30 MINUTES BEFORE BREAKFAST FOR THYROID - TAKE ON AN EMPTY STOMACH WITH A FULL GLASS OF WATER OMEPRAZOLE 20MG EC CAP TAKE ONE CAPSULE BY MOUTH EVERY ACTIVE MORNING 30 MINUTES BEFORE BREAKFAST TRAZODONE HCL 50MG TAB TAKE ONE-HALF TABLET BY MOUTH AT ACTIVE BEDTIME NEEDED FOR SLEEP Non-VA OTHER CAP/TAB BY MOUTH ACTIVE ALL: BEE STINGS, PENICILLIN, DOXYCYCLINE Fam Hx: Non - contributory Soc Hx: FORMER, [id number]-[id number] HISTORY STOPPED 5 YEARS AGO ROS: Denies any other relavent ROS Vitals Enter at: Dec 09, 2023@14:31:04 BP: 138/82 P: 94 R: 16 T: 97.7 252.8 lb [114.67 kg] (12/09/2023 14:31) BMI: 42.2 CONSTITUTION: GENERAL APPEARANCE:Well developed, well nourished and groomed. No apparent acute or chronic distress. OBESE HEAD, FACE, SALIVARY GLANDS AND TMJ: Palpation of Parotid and Submandibular glands: Normal. Facial Mobility: Normal. EAR, NOSE, MOUTH AND THROAT: Pinnas - normal. Otoscopic exam: RIGHT EAR: External auditory canal normal, tympanic membrane mobile LEFT EAR: CWD MASTOID CAVITY, tympanic membrane mobile Nasal Interior: Turbinates and middle meatus - Inferior turbinates normal. Normal mucosa with no swelling, polyps, active bleeding or evidence of bleeding. Lips, Teeth and Gums: Lips normal, EDENTULOUS Oral Cavity and Oropharynx: Oral mucosa with normal color and moisture. Anterior 2/3rds of tongue normal. Breath quality normal. Hard palate normal. Normal floor of mouth, Posterior pharynx normal. MALLAMPATI IV NECK AND THYROID: Neck: no adenopathy; no neck masses. RESPIRATORY: Respiratory effort normal. LYMPH NODES: Neck nodes: normal. NEUROLOGIC: Higher integrative functions: Normal orientation, memory, attention span and concentration, language, and fund of knowledge. Cranial nerves: Cranial nerves II-XII grossly intact and symmetrical. RASPY VOICE WITH WEAKNESS PSYCHIATRIC: Mood and affect: normal and appropriate to the situation. [address] Laryngoscopy; flexible fiberoptic; diagnostic Informed consent was obtained. Risks, benefits, and alternatives were discussed. PROCEDURE NOTE After anesthesia was established, the lubricated scope was introduced through the nose into the larynx. All structures were examined as noted below. ANESTHESIA: Topical 4% Lidocaine and oxymetazoline FINDINGS: SUPRAGLOTTIC COMPENSATION NO MASSES Base of Tongue: GENEROUS, SYMMETRICAL Posterior Pharynx: Normal Lateral Pharynx: Normal Vallecula: Normal Epiglottis: Normal Pyriform Sinus: Normal Arytenoids: Normal Interarytenoid Space: Normal False Cord: Normal True Cord Mucosa: MILD ECTASCIAS Larynx Mobility: Normal, HOURGLASSING Subglottic Space: Normal TOLERANCE: Good ESTIMATED BLOOD LOSS: nil Assessment/Plan DEC 09, 2023: 68-year-old male former smoker stopped 5 years ago with a 18-wrnk-ubuy history presents with hoarseness x2 weeks. He states that 2 weeks ago he developed a significant URI. He did not require antibiotics but he had very significant hard barking cough. That resolved about a week to 10 days ago and now he only has his intermittent COPD cough but since that time he has noted that his regular voice has not come back. He states it is worse both in the morning and with use. It is froggy and not as strong with about half the strength of his normal voice. He has no new shortness of breath. He has no ear pain. He has no unintended weight loss. Physical exam shows obese male with weak raspy voice no stridor. Physical exam shows patient edentulous with a Mallampati 4. Fiberoptic exam shows symmetric generous base of tongue with a positive Russell's maneuver, vocal cords show ectasias bilaterally with hourglassing and supraglottic compensation. No evidence of mass. I reassured the patient there is no evidence of any masses. The patient'S hoarseness is secondary to his cough which caused trauma to the vocal cords. In addition he has thinning of the vocal cords with hourglassing which is a result of both aging as well as his inhaler usage. He also has some supraglottic compensation. I recommended increased hydration and voice rest. I discussed with him that this may take weeks to fully resolve. If it does not resolve within 1 month he could be a candidate for voice therapy. In addition the patient does have a history of a left mastoid surgery. I would be happy to see him annually for mastoid debridements. All questions were answered. Complete encounter includes: Review of past medical records Time spent with patient including obtaining history, physical exam, shared decision making, procedures Counseling and answering questions Post visit documentation to include but not limited to medication and lab ordering. Total time = Minimum 55 min MEDICATION RECONCILIATION Outpatient: Has the patient been taking medications as documented in the EMLR? YES: The patient has been taking medications as documented in the EMLR. Essential Medication List for Review used to complete this medication reconciliation. INCLUDED IN THIS LIST: Alphabetical list of active outpatient prescriptions dispensed from this [place] (local) and dispensed from another [place] or [facility] facility (remote) as well as inpatient orders (local, pending and active), local clinic medications, locally documented non-VA medications, and local prescriptions that have or been discontinued in the past 90 days. - All changes in medications, including all non-VA/Herbal/OTC medications were entered into CPRS. - If there were any medications the patient should no longer take, they were discontinued. - The patient/caregiver was instructed to update this list, discard old lists, and take this list to the next appointment, whether with a VA or non-VA provider. JLV Link Data on this list may not be complete. Please check JLV. Allergies/ADRs (Tool #5) FACILITY ALLERGY/ADR -------- [facility] INSECT STINGS [facility] PENICILLIN [facility] BEE STINGS [facility]ENICILL[facility] BEE ST[facility] DOXYCYCLINE [facility] PENICILLIN [facility] INSECT STINGS [facility] PENICILLIN Med Recon NoGlossary (Tool #1) INCLUDED IN THIS LIST: Alphabetical list of active outpatient prescriptions dispensed from this [place] (local) and dispensed from another [place] or [facility] facility (remote) as well as inpatient orders (local pending and active), local clinic medications, locally documented non-VA medications, and local prescriptions that have or been discontinued in the past 90 days. Non-VA Meds Last Documented On: Apr 21, 2023 NOTE The display of VA prescriptions dispensed from another [place] or [facility] facility (remote) is limited to active outpatient prescription entries matched to National Drug File at the originating site and may not include some items such as investigational drugs, compounds, etc. NOT INCLUDED IN THIS LIST: Medications self-entered by the patient into personal health records (i.e. [employer]) are NOT included in this list. Non-VA medications documented outside this [place], remote inpatient orders (regardless of status) and remote clinic medications are NOT included in this list. The patient and provider must always discuss medications the patient is taking, regardless of where the medication was dispensed or obtained. OUTPT ALBUTEROL 3/IPRATROP 0.5MG/3ML INHL 3ML (Status = Active) INHALE 1 AMPULE IN NEBULIZER TWICE DAILY NEEDED FOR WHEEZING Rx# [id number] Last Released: 10/09/23 Qty/Days Supply: 60/30 Rx Expiration Date: 10/08/24 Refills Remainin OUTPT ALBUTEROL 90MCG (CFC-F) 200D ORAL INHL (Status = Active) INHALE 2 PUFFS BY MOUTH EVERY 4 HOURS NEEDED Rx# [id number] Last Released: 11/05/23 Qty/Days Supply: Rx Expiration Date: 11/05/24 Refills Remainin Indication: FOR BRONCHOSPASM PREVENTION OUTPT ALBUTEROL SO4 0.083% INHL 3ML (Status = Active) INHALE 1 AMPULE IN NEBULIZER EVERY 6 HOURS NEEDED FOR BREATHING Rx# [id number] Last Released: 05/25/23 Qty/Days Supply: 120/30 Rx Expiration Date: 01/26/24 Refills Remainin OUTPT ASPIRIN 325MG EC TAB (Status = Active) TAKE ONE TABLET BY MOUTH ONCE DAILY TO PREVENT STROKE/HEART ATTACK Rx# [id number] Last Released: 11/24/23 Qty/Days Supply: 100/90 Rx Expiration Date: 01/09/24 Refills Remainin Indication: FOR MYOCARDIAL REINFARCTION PREVENTION OUTPT BENZONATATE 200MG CAP (Status = ) TAKE ONE CAPSULE BY MOUTH THREE TIMES DAILY NEEDED FOR COUGH Rx# [id number] Last Released: 11/05/23 Qty/Days Supply: 21/06 Rx Expiration Date: 12/05/23 Refills Remainin Indication: FOR COUGH OUTPT BUSPIRONE HCL 10MG TAB (Status = Discontinued) TAKE TWO TABLETS BY MOUTH TWICE DAILY FOR ANXIETY Rx# [id number] Last Released: 11/01/23 Qty/Days Supply: 120/30 Rx Expiration Date: 09/24/24 Refills Remainin Indication: FOR ANXIETY OUTPT BUSPIRONE HCL 10MG TAB (Status = Active) TAKE TWO TABLETS BY MOUTH TWICE DAILY FOR ANXIETY Rx# [id number] Last Released: 11/23/23 Qty/Days Supply: 120/30 Rx Expiration Date: 11/22/24 Refills Remainin Indication: FOR ANXIETY OUTPT BUSPIRONE HCL 15MG TAB (Status = Discontinued) TAKE ONE TABLET BY MOUTH TWICE DAILY Rx# [id number] Last Released: 08/27/23 Qty/Days Supply: Rx Expiration Date: 08/27/24 Refills Remainin Indication: FOR ANXIETY OUTPT CETIRIZINE HCL 10MG TAB (Status = Active) TAKE ONE TABLET BY MOUTH ONCE DAILY FOR ALLERGIES Rx# [id number] Last Released: 09/30/23 Qty/Days Supply: Rx Expiration Date: 01/05/24 Refills Remainin OUTPT CLOTRIMAZOLE 1% TOP SOLN (Status = ) APPLY DIRECTED TOPICALLY ONCE DAILY FOR FUNGAL INFECTION Rx# [id number] Last Released: 05/25/23 Qty/Days Supply: Rx Expiration Date: 10/10/23 Refills Remainin Indication: FOR FUNGAL INFECTION OF THE SKIN OUTPT CYANOCOBALAMIN 1000MCG TAB (Status = ) TAKE ONE TABLET BY MOUTH ONCE DAILY FOR VITAMIN SUPPLEMENTATION Rx# [id number] Last Released: 03/09/23 Qty/Days Supply: Rx Expiration Date: 09/12/23 Refills Remainin Indication: FOR PREVENTION OF VITAMIN B12 DEFICIENCY OUTPT ESCITALOPRAM OXALATE 20MG TAB (Status = Discontinued) TAKE ONE TABLET BY MOUTH ONCE DAILY FOR MOOD/DEPRESSION Rx# [id number] Last Released: 08/31/23 Qty/Days Supply: Rx Expiration Date: 11/18/23 Refills Remainin Indication: FOR MAJOR DEPRESSIVE DISORDER OUTPT ESCITALOPRAM OXALATE 20MG TAB (Status = Active) TAKE ONE TABLET BY MOUTH ONCE DAILY FOR MOOD/DEPRESSION Rx# [id number] Last Released: 10/29/23 Qty/Days Supply: Rx Expiration Date: 10/29/24 Refills Remainin Indication: FOR MAJOR DEPRESSIVE DISORDER OUTPT FLUTICAS 100/SALMETEROL 50 INHL DISK 60 (Status = Discontinued) INHALE 1 PUFF BY MOUTH TWICE DAILY - RINSE MOUTH AFTER USE Rx# [id number] Last Released: 09/24/23 Qty/Days Supply: 09/21 Rx Expiration Date: 07/26/24 Refills Remainin Indication: FOR BRONCHOSPASM PREVENTION WITH COPD OUTPT FLUTICAS 250/SALMETEROL 50 INHL DISK 60 (Status = Active) INHALE 1 PUFF BY MOUTH EVERY 12 HOURS - RINSE MOUTH AFTER USE Rx# [id number] Last Released: 11/05/23 Qty/Days Supply: 09/21 Rx Expiration Date: 10/08/24 Refills Remainin OUTPT LEVOTHYROXINE NA (SYNTHROID) 150MCG TAB (Status = Active) TAKE ONE TABLET BY MOUTH EVERY MORNING 30 MINUTES BEFORE BREAKFAST FOR THYROID - TAKE ON AN EMPTY STOMACH WITH A FULL GLASS OF WATER Rx# [id number] Last Released: 10/25/23 Qty/Days Supply: Rx Expiration Date: 01/05/24 Refills Remainin OUTPT OMEPRAZOLE 20MG EC CAP (Status = Active) TAKE ONE CAPSULE BY MOUTH EVERY MORNING 30 MINUTES BEFORE BREAKFAST Rx# [id number] Last Released: 10/08/23 Qty/Days Supply: Rx Expiration Date: 07/26/24 Refills Remainin Indication: FOR GASTROESOPHAGEAL REFLUX DISEASE Non-VA OTHER CAP/TAB TAKE BY MOUTH Aug 11, 2022 Non-VA medication recommended by [place] provider. Elderberry supplement for immune support Indication: UNKNOWN OUTPT TRAZODONE HCL 50MG TAB (Status = Active) TAKE ONE-HALF TABLET BY MOUTH AT BEDTIME NEEDED FOR SLEEP Rx# [id number] Last Released: 05/25/23 Qty/Days Supply: Rx Expiration Date: 04/07/24 Refills Remainin Indication: FOR INSOMNIA ASSOCIATED WITH DEPRESSION SUPPLIES /herlinda/ Ted Wallace MD Otolaryngology Signed: 12/09/2023 15:43 [facility]
--- OUTSIDE RECORDS SUMMARY | 2024-08-18 13:09 | XMS_ITS ---
Author Name [facility] [place] Address [address] [place] [address] Care Team Providers Care Nutritional Services Host Name Role Phone ALEXANDR YODER Primary Care [...] LYLE (WNR) MEDICARE ADVANTAGE HUMAN A [facility] Mar 23, 2023 [id number] [phone] Ezekiel WILKERSON PATIENT Selected Encounter This section includes the information on record at [place] for the Encounter. Date/Time Encounter Type Encounter Description Reason Provider Source Nov 05, 2023 11:00 AM OFFICE O/P EST MOD 30 MIN PRIMARY CARE/MEDICINE ICD-10-CM R05.8 Other specified cough PARESH,ALEXANDR ESTELLA E Encounter Template Text not used by [place] Assessments - Encounter Diagnoses This section includes the primary and secondary diagnoses documented for the Encounter. Date/Time Primary/Secondary Diagnosis Diagnosis Name Provider Source Nov 05, 2023 12:13 PM PRIMARY Other specified cough PARESH,ALEXANDR ESTELLA [facility] [place] [facility] Plan of Treatment: Future Appointments (+ 6 months) and Future Tests (+/- 45 days) The Plan of Treatment section includes future care activities for the patient from all [place] treatmentfacilities. This section includes future appointments and future orders which are active, pending or scheduled. Future Appointments This section includes appointments that were scheduled to occur 6 months from the date of the Encounter, up to a maximum of 20 appointments. The data comes from all [place] treatment facilities. Appointment Date/Time Appointment Type Appointme nt Facility Name Nov 08, 2023 02:00 PM AMBULATORY - MEDICINE [place] [facility] [place] [facility] Nov 23, 2023 02:45 PM AMBULATORY - MEDICINE [place] [facility] [place] [facility] Dec 09, 2023 01:30 PM AMBULATORY - MEDICINE [place] [facility] [place] [facility] Dec 09, 2023 03:00 PM AMBULATORY - MEDICINE [place] [facility] [place] [facility] Dec 17, 2023 01:00 PM AMBULATORY - PS[place]CHIATRY [place] [facility] [place] [facility] Dec 17, 2023 01:30 PM AMBULATORY - PS[place]CHIATRY [place] [facility] [place] [facility] January 05, 2024 11:30 AM AMBULATORY - MEDICINE [place] [facility] [place] [facility] January 21, 2024 01:30 PM AMBULATORY - PS[place]CHIATRY [place] [facility] [place] [facility] Feb 16, 2024 01:30 PM AMBULATORY - MEDICINE [place] [facility] [place] [facility] Feb 18, 2024 03:00 PM AMBULATORY - MEDICINE [place] [facility] [place] [facility] Mar 03, 2024 01:30 PM AMBULATORY - PS[place]CHIATRY [place] [facility] [place] [facility] Apr 06, 2024 08:30 AM AMBULATORY - MEDICINE [place] [facility] [place] [facility] Apr 19, 2024 02:15 PM AMBULATORY - MEDICINE [place] [facility] [place] [facility] May 05, 2024 01:30 PM AMBULATORY - PS[place]IATRY [place] [facility] [place] [facility] Vital Signs: All taken on the encounter date This section contains inpatient and outpatient Vital Signs collected on the date of the Encounter. Date/Time Temperature Pulse Blood Pressure Respiratory Rate SP02 Pain Height Weight Body Mass Index Source Nov 05, 2023 11:18 AM 98.3 77 128/83 18 94 3 [place] [facility] [place] [facility] Social History: Smoking Status (Most current) and Tobacco Use (All prior to encounter date) This section includes the most current, and the historical, smoking and tobacco- related health factors from the [place] facility where the Encounter took place. Current Smoking Status This section includes the most current smoking, or tobacco-related health factor, from the [place] facility where the Encounter took place. Date/Time Current Smoking Status Comment Facil it Apr 07, 2023 01:30 PM VA-TOBACCO FORMER USER [place] [facility] [place] [facility] Tobacco Use History This section includes a history of the smoking, or tobacco-related health factors, that were collected on or before the date of the Encounter. The data comes from the [place] facility where the Encounter took place. Date/Time Smoking Status/Tobac co Use Comment Facility Apr 07, 2023 01:30 PM VA-TOBACCO QUIT 5 TO < 15 YRS [facility] [place] [facility] May 07, 2022 09:30 AM VA-TOBACCO FORMER USER [place] [facility] [place] [facility] May 07, 2022 09:30 AM VA-TOBACCO QUIT 1 TO < 5 YRS [place] [facility] [place] [facility] May 15, 2021 08:45 AM VA-TOBACCO FORMER USER [place] [facility] [place] [facility] May 15, 2021 08:45 AM VA-TOBACCO QUIT 1 TO < 5 YRS [place] [facility] [place] [facility] Jun 04, 2020 10:30 AM VA-TOBACCO FORMER USER [place] [facility] [place] [facility] Jun 04, 2020 10:30 AM VA-TOBACCO QUIT < 1 YEAR [place] [facility] [place] [facility] May 23, 2019 09:36 AM VA-TOBACCO DOESNT USE WI 30 MIN WAKEUP [place] [facility] [place] [facility] May 23, 2019 09:36 AM VA-TOBACCO USE 30 YEARS OR MORE [place] [facility] [place] [facility] May 23, 2019 09:36 AM VA-TOBACCO USE ADVICE [place] [facility] [place] [facility] May 23, 2019 09:36 AM VA-TOBACCO USE MANAGING CONSULTANT CLINICAL PROFESSOR NO [place] [facility] [place] [facility] May 23, 2019 09:36 AM VA-TOBACCO USE MED NO [place] [facility] [place] [facility] May 23, 2019 09:36 AM VA-TOBACCO USER EVERY DAY [place] [facility] [place] [facility] Apr 21, 2018 01:18 PM CURRENT SMOKER 1/2 pk a week [facility] Apr 21, 2018 01:18 PM V1-PT DECLINES REF TO TOBACCO CESS PRGM [facility] Apr 21, 2018 01:18 PM V1-PT DECLINES TOB ACCO CESSATION MEDS [facility] Apr 21, 2018 01:18 PM V1-PT THINKING ABO UT QUIT TOBACCO USE [facility] Oct 18, 2017 02:19 PM V1-PT NOT INTEREST ED IN QUIT TOBACCO USE [facility] Oct 04, 2017 01:55 PM CURRENT SMOKER .5 packs a day [facility] Advance Directives: All historical and current Section Date Range: From patient's date of to the date document was created. This section includes ALL of a patient's completed or amended [place] Advance and Rescinded Directives. The entries below indicate that a directive exists for the patient, but an actual copy is not included with this document. The data comes from all [place] facilities. Date Advance Directives Provider Source Feb 13, 2003 ADVANCE DIRECTIVE KAT OVIEDO [facility] Encounter Notes: All associated encounter notes This section contains the clinical notes associated to the Encounter. Date/Time Encounter Note(s) Provider Source Nov 05, 2023 11:32 AM PRIMARY CARE NURSE PRACTITIONER OUTPATIENT NOTE: LOCAL TITLE: NURSE PRACTITIONER OUTPATIENT NOTE STANDARD TITLE: PRIMARY CARE NURSE PRACTITIONER OUTPATIENT NOTE DATE OF NOTE: NOV 05, 2023@11:32 ENTRY DATE: NOV 05, 2023@11:32:36 AUTHOR: ALEXANDR YODER EXP COSIGNER: URGENCY: STATUS: COMPLETED Chief complaint: Pt is a 68 who comes in for follow up of medical problems as noted below. HPI: went to [facility] on 10/31/23 with congestion rhinitis and cough he noted muscle aches and COPD exacerbation was worried about Covid which was negative in the ER he had increased work of breathing despite being c/w inhalers at home they checked Tops and EKG as well as D dimer which was negative and wells criteria was low therefore no doppler or CTA was indicated at the time. CXR was done and was clear and not clinically c/w with PNA at the time. Also Pro-BNP was negative He was discharged with 5 day burst of prednisone last dose today, he is feeling better and denies distress but still with persistant cough OTC meds not helping PMH: Active problems - Computerized Problem List is the source for the followin. 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 Colonoscopy normal [facility] 10/2021-- Repeat colonoscopy for screening purposes on 10/2031 3. Degenerative disc disease moderate to severe lumbar DDD on xray 08/2022 4. Depression 5. Sleep apnea 6. Supraventricular tachycardia 05/13/21 [facility] Successful Ablation 7. HTN - Hypertension (RUST [id number]) 8. Anxiety disorder 9. H/O: gastric ulcer reports approximately 15 years ago. 10. Steatosis of liver 05/2019 - Liver labs - wnl 11. Partial tear, knee, anterior cruciate ligament s/p fall - right knee trauma ( seen [facility]/ 05/23/19 06/07/19 - MRI - [facility] - anterior Cruciate ligament tear Orthopedical surgical consult - 12. Bilateral knee pain MED:DICLOFENAC NA 1% XRAY - Normal TREAT - PT/ Rehab MED 13. Chronic kidney disease stage 2 GFR 54 14. Ocular rosacea 15. Radioactive iodine-induced hypothyroidism MED:LEVOTHYROXINE NA (SYNTHROID) 0.15MG 16. Tobacco use stopped smoking 06/2019 ( required for knee surgery ) 17. Obesity 18. Patient requires hospitalization sent to [facility] - for DVT ( chest PAIN) 19. History of surgery Mastoid - left ear - in [facility] cholecystectomy - [place] right knee ? 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 Chronic obstructive lung disease MED: ALBUTEROL 100/IPRATRO, ALBUTEROL 90MCG 21. Unemployed receives disability thru the [facility] 22. Obesity 23. H/O: Deep vein thrombosis per pt report - upper arm ( after iv- non [place] hospital ) 24. Adult screening status HEMOGLOBIN A1C 6.0 ( 2017) 10/2017 AAA - mildly aneurysmal at 3.0 cm in diameter. HepC Ab NON-REACTIVE repeat US showing no AAA no need for US f/u Allergies: BEE STINGS, PENICILLIN, DOXYCYCLINE The following VA and Non-VA meds were reconciled with patient: Active and Recently Outpatient Medications (excluding Supplies): Active Outpatient Medications Status 1) ALBUTEROL [...] MOUTH ACTIVE AT BEDTIME NEEDED FOR SLEEP Inactive Outpatient Medications Status 1) CLOTRIMAZOLE 1% TOP SOLN APPLY DIRECTED TOPICALLY ONCE DAILY FOR FUNGAL INFECTION Active Non-VA Medications Status 1) Non-VA OTHER CAP/TAB BY MOUTH ACTIVE 12 Total Medications Allergies: BEE STINGS, PENICILLIN, DOXYCYCLINE VITAL SIGNS: 98.3 F [36.8 C] (11/05/2023 11:18) 77 (11/05/2023 11:18) 18 (11/05/2023 11:18) 128/83 (11/05/2023 11:18) 3 (11/05/2023 11:18) 65 in [165.1 cm] (07/26/2023 14:01) 266 lb [120.66 kg] (10/21/2023 11:25) BMI: 44.4 ROS SKIN: denies any rashes or suspicious lesions RESP: denies SOB (+) cough, improv CV: denies CP or pedal Edema GI: denies Abd pain Musculo: denies weakness Mental Health: Denies SI, HI PHYSI BEATRIS EXAM General: NAD Head: Normocephalic, atraumatic Eyes: EOMI no nystagmus, PERRLA, Palpebral folds appropriate width, no drooping, sclera white, conjunctiva pink without exudate or edema. Ears: Symmetrical no deformities, Auricles palpable without tenderness, TM well visualized pearly dominguez no cerumen foreign body or drainage no erythema Nose: Patent nares, CLEAR nasal discharge or congestion, no tenderness on frontal and maxillary sinuses, nasal mucosa pink boggy Mouth/Pharynx/Neck: No Tonsillar exudate or ulcerations, uvula midline, posterior pharynx moist and pink, trachea midline without deviation, No cervical Lymphadenopathy Lungs CTA throughout no wheezes rhonchi or LAB RESULTS LAST 1440 HRS - NONE FOUND Future Clinic Visits 11/08/2023 14:00 COM CARE-OTHER 11/23/2023 14:45 COM CARE-CARDIOLOGY 12/17/2023 13:00 NHM/MHC/COOK 12/17/2023 13:30 CWM/NO/MHC/CLP2 02/16/2024 15:00 CWM/NO/PODIATRY/NAIL ASSESSMENT AND PLAN: 1)Post Viral Cough ER workup neg, just finished burst pred today, his lungs are clear sats 94% CXR negative no distress and afebrile no need for Abx at this time. Cont. with [employer] [facility] as needed Rx for albuterol inhaler BID scheduled for next week then PRN Rx for Tessel on Encouraged continued pushing fluids to help thin secretions Has f/u pulm in 1 month return if worsening sx fevers ER if any resp distress Return to clinic to see me in 3 months, RTC sooner if needed. Clinical Reminders Medication Reconciliation: Outpatient: Has the patient been taking medications as documented in the EMLR? YES: The patient has been taking medications as documented in the EMLR. Essential Medication List for Review used to complete this medication reconciliation. INCLUDED IN THIS LIST: Alphabetical list of active outpatient prescriptions dispensed from this [facility] (local) and dispensed from another [place] or DoD facility (remote) as well as inpatient orders [...] whether with a VA or non-VA provider. /herlinda/ JR JOSEPH Nurse Practitioner Signed: 11/05/2023 12:11 ALEXANDR YODER [place] [facility] [place] [facility] Nov 05, 2023 11:16 AM PREVENTIVE MEDICINE NURSING NOTE: LOCAL TITLE: CLINICAL REMINDERS/NURSING STANDARD TITLE: PREVENTIVE MEDICINE NURSING NOTE DATE OF NOTE: NOV 05, 2023@11:16 ENTRY DATE: NOV 05, 2023@11:16:39 AUTHOR: CAMDEN NINO COSIGNER: URGENCY: STATUS: COMPLETED Advance Directive Screen MH AD: Patient does not have a completed advance directive on file at any facility, VA or outside. S/he is not interested in completing one at this time. The patient received education about Advance Directives and written notification of his/her rights. Suicide Screen: C-SSRS Screening [place] Suicide Severity Rating Scale (C-SSRS) screener 1. Over the past month, have you wished you were or wished you could go to sleep and not wake up? No 2. Over the past month, have you had any actual thoughts of killing yourself? No 3. Over the past month, have you been thinking about how you might do this? Response not required due to responses to other questions. 4. Over the past month, have you had these thoughts and had some intention of acting on them? Response not required due to responses to other questions. 5. Over the past month, have you started to work out or worked out the details of how to kill yourself? Response not required due to responses to other questions. 6. If yes, at any time in the past month did you intend to carry out this plan? Response not required due to responses to other questions. 7. In your lifetime, have you ever done anything, started to do anything, or prepared to do anything to end your life (for example, collected pills, obtained a gun, gave away valuables, went to the roof but didn't jump)? No 8. If YES, was this within the past 3 months? Response not required due to responses to other questions. Homelessness/Food Insecurity Screen: In the past 2 months, have you been living in stable housing that you own, rent, or stay in as part of a household? Yes - Living in stable housing. Are you worried or concerned that in the next 2 months you may NOT have stable housing that you own, rent, or stay in as part of a household? No - Not worried about housing near future The reports the following: Within the past 12 months, you worried whether your food would run out before you got money to buy more. Never true Within the past 12 months, the food you bought just didn't last and you didn't have money to get more. Never true Alcohol Use Screen (AUDIT-C): Alcohol Screen: SCREEN FOR ALCOHOL (AUDIT-C) An alcohol screening test (AUDIT-C) was negative (score=0). 1. How often did you have a drink containing alcohol in the past year? Consider a drink to be a 12 ounce can or bottle of regular beer, 8 ounces of malt liquor, a 5 ounce glass of table wine, or a 1.5 ounce shot of liquor (like scotch, gin, or vodka). Never 2. How many drinks containing alcohol did you have on a typical day when you were drinking in the past year? Response not required due to responses to other questions. 3. How often did you have six or more drinks on one occasion in the past year? Response not required due to responses to other questions. RHS Screen: RHS Screen Session Format: Face to Face Environmental Check Screening was not completed at this time due to: Other: Not in a relationship /herlinda/ URVASHI DIAZ, RN, CNL PRIMARY CARE TEAM NURSE Signed: 11/05/2023 11:18 CAMDEN NINO [facility]
--- OUTSIDE RECORDS SUMMARY | 2024-08-18 13:09 | XMS_ITS | Encounter Summary ---
Author Name [facility] [place] Address [address] [place] [address] Care Team Providers Care Production Superintendent Name Role Phone ALEXANDR YODER Primary Care [...] Name Patient's Relationship to Policy [place] [employer] [facility] (WNR) MEDICARE ADVANTAGE HUMAN A [facility] Mar 23, 2023 [id number] [phone] Ezekiel WILKERSON PATIENT Selected Encounter This section includes the information on record at [place] for the Encounter. Date/Time Encounter Type Encounter Description Reason Pro vider Source Oct 31, 2023 12:00 AM Outpatient Encounter EVENT (HISTORICAL) IHE Encounter Template Text not used by [place] Plan of Treatment: Future Appointments (+ 6 [...] MEDICINE [place] [facility] [place] [facility] Nov 08, 2023 02:00 PM AMBULATORY - MEDICINE [place] [facility] [place] [facility] Nov 23, 2023 02:45 PM AMBULATORY - MEDICINE [place] [facility] [place] [facility] Dec 09, 2023 01:30 PM AMBULATORY - MEDICINE [place] [facility] [place] [facility] Dec 09, 2023 03:00 PM AMBULATORY - MEDICINE [place] [facility] [place] [place] [facility] Dec 17, 2023 01:00 PM AMBULATORY - PSYCHIATRY [facility] [place] [facility] Dec 17, 2023 01:30 PM AMBULATORY - PSYCHIATRY [facility] [place] [facility] January 05, 2024 11:30 AM AMBULATORY - MEDICINE [place] [facility] [place] [facility] January 21, 2024 01:30 PM AMBULATORY - PSYCHIATRY [facility] [place] [facility] Feb 16, 2024 01:30 PM AMBULATORY - MEDICINE [place] [facility] [place] [facility] Feb 18, 2024 03:00 PM AMBULATORY - MEDICINE [place] [facility] [place] [facility] Mar 03, 2024 01:30 PM AMBULATORY - PSYCHIATRY [place] [facility] [place] [facility] Apr 06, 2024 08:30 AM AMBULATORY - [place]ICINE [place] [facility] Apr 19, 2024 02:15 PM AMBULATORY - [place]ICINE [place] [facility] Social History: Smoking Status (Most [...] took place. Date/Time Current Smoking Status Comment [facility] it Apr 07, 2023 01:30 PM VA-TOBACCO FORMER USER [place] [facility] [place] [facility] Tobacco Use History This section includes a history of the smoking, or tobacco-related health factors, that were collected on or before the date of the Encounter. The data comes from the [place] facility where the Encounter took place. Date/Time Smoking Status/Tobac co Use Comment Facility Apr 07, 2023 01:30 PM VA-TOBACCO QUIT 5 TO < 15 YRS [place] [facility] [place] [facility] May 07, 2022 09:30 AM VA-TOBACCO FORMER USER [place] [facility] [place] [facility] May 07, 2022 09:30 AM VA-TOBACCO QUIT 1 TO < 5 YRS [place] [facility] [place] [facility] May 15, 2021 08:45 AM VA-TOBACCO FORMER USER [place] [facility] [place] [facility] May 15, 2021 08:45 AM VA-TOBACCO QUIT 1 TO < 5 YRS [place] [facility] [place] [facility] Jun 04, 2020 10:30 AM VA-TOBACCO FORMER USER [place] [facility] [place] [facility] Jun 04, 2020 10:30 AM VA-TOBACCO QUIT < 1 YEAR [place] [facility] [place] [facility] May 23, 2019 09:36 AM VA-TOBACCO DOESNT USE WI 30 MIN WAKEUP [place] [facility] [facility] May 23, 2019 09:36 AM VA-TOBACCO USE 30 YEARS OR MORE [place] [facility] [place] [facility] May 23, 2019 09:36 AM [facility] [place] [facility] May 23, 2019 09:36 AM VA-TOBACCO USE ADMINISTRATION INTERNSHIP NO [place] [facility] [place] [facility] May 23, 2019 09:36 AM VA-TOBACCO USE MED NO [place] [facility] [place] [facility] May 23, 2019 09:36 AM VA-TOBACCO USER EVERY DAY [place] [facility] [place] [facility] Apr 21, 2018 01:18 PM CURRENT SMOKER 1/2 pk a week [place] [facility] [place] [facility] Apr 21, 2018 01:18 PM V1-PT DECLINES REF TO TOBACCO CESS PRGM [place] [facility] [place] [facility] Apr 21, 2018 01:18 PM V1-PT DECLINES TOB ACCO CESSATION MEDS [place] [facility] [place] [facility] Apr 21, 2018 01:18 PM V1-PT THINKING ABO UT QUIT TOBACCO USE [place] [facility] [place] [facility] Oct 18, 2017 02:19 PM V1-PT NOT INTEREST ED IN QUIT TOBACCO USE [place] [facility] [place] [facility] Oct 04, 2017 01:55 PM CURRENT SMOKER .5 packs a day [facility] Advance Directives: All historical and current [...] Feb 13, 2003 ADVANCE DIRECTIVE KAT OVIEDO [facility] Encounter Notes: All associated encounter notes This section contains the clinical notes associated to the Encounter. Date/Time Encounter Note(s) Provider Source Oct 31, 2023 12:00 AM NONVA NOTE: LOCAL TITLE: NON-VA HOSPITALIZATIONS/ER STANDARD TITLE: NONVA NOTE DATE OF NOTE: OCT 31, 2023 ENTRY DATE: NOV 16, 2023@10:17:47 AUTHOR: REEMA BRAND EXP COSIGNER: URGENCY: STATUS: COMPLETED VistA Imaging - Scanned Document SCANNED DOCUMENT SIGNATURE NOT REQUIRED Electronically Filed: 11/16/2023 by: REEMA WHITEHEAD [facility]
--- OUTSIDE RECORDS SUMMARY | 2024-08-18 13:09 | XMS_ITS | Encounter Summary ---
Author Name [facility] [place] [facility] [place] Address [address] [place] [address] Care Team Providers Care Spot Worker Name Role Phone ALEXANDR YODER Primary [...] MEDICARE ADVANTAGE HUMAN A [facility] Mar 23, 2023 [id number] [phone] [id number] [phone] Ezekiel WILKERSON PATIENT Selected Encounter This section includes the information on record at [place] for the Encounter. Date/Time Encounter Type Encounter Description Reason Provider Source Nov 11, 2023 10:18 AM Outpatient Encounter HT NON-VIDEO MONITORING ICD-10-CM E66.01 Morbid (severe) obesity due to excess calories MANEKLJ,ALEC L IHE Encounter Template Text not used by [place] Assessments - Encounter Diagnoses This section includes the primary and secondary diagnoses documented for the Encounter. Date/Time Primary/Secondary Diagnosis Diagnosis Name Provider Source Nov 11, 2023 10:35 AM PRIMARY Morbid (severe) obesity due to excess calories ANTONIO ZHANG [facility] Nov 11, 2023 10:35 AM SECONDARY Body mass index [BMI] 40.0-44.9, adult ANTONIO ZHANG [facility] Plan of Treatment: Future Appointments (+ 6 months) and Future Tests (+/- 45 days) The Plan of Treatment section includes future care activities for the [facility] [place] [facility] This section includes future appointments and future orders which are active, pending or scheduled. Future Appointments This section includes appointments that were scheduled to occur 6 months from the date of the Encounter, up to a maximum of 20 appointments. The data comes from all [facility] facilities. Appointment Date/Time Appointment Type Appointme nt Facility Name Nov 23, 2023 02:45 PM AMBULATORY - MEDICINE [facility] Dec 09, 2023 01:30 PM AMBULATORY MEDICINE [facility] Dec 09, 2023 03:00 PM AMBULATORY MEDICINE [facility] Dec 17, 2023 01:00 PM AM[facility]UL[facility]ORY [facility]ATRY [facility] Dec 17, 2023 01:30 PM [facility]ORY [facility]RY [facility] January 05, 2024 11:30 AM AMBULATORY - MEDICINE [facility] January 21, 2024 01:30 PM AM[facility]ULATORY PS[facility]ATRY [facility] Feb 16, 2024 01:30 PM AMBULATORY MEDICINE [facility] Feb 18, 2024 03:00 PM AMBULATORY MEDICINE [facility] Mar 03, 2024 01:30 PM AMBULATORY PS[facility]IATRY [facility] Apr 06, 2024 08:30 AM AMBULATORY - MEDICINE [facility] Apr 19, 2024 02:15 PM AMBULATORY - MEDICINE [facility] May 05, 2024 01:30 PM AM[facility]UL[facility]ORY [facility] Social History: Smoking Status (Most current) and Tobacco Use (All prior to encounter date) This section includes the most current, and the historical, smoking and tobacco- related health factors from the [place] facility where the Encounter took place. Current Smoking Status This section includes the most current smoking, or tobacco-related health factor, from the [place] facility where the Encounter took place. Date/Time Current Smoking Status Comment Artem maloney Apr 07, 2023 01:30 PM VA-TOBACCO FORMER USER [place] [facility] Tobacco Use History This section includes a history of the smoking, or tobacco-related health factors, that were collected on or before the date of the Encounter. The data comes from the [place] facility where the Encounter took place. Date/Time Smoking Status/Tobac co Use Comment [facility] Apr 07, 2023 01:30 PM VA-TOBACCO QUIT 5 TO < 15 YRS [facility] May 07, 2022 09:30 AM VA-TOBACCO FORMER USER [facility] May 07, 2022 09:30 AM VA-TOBACCO QUIT 1 TO < 5 YRS [facility] May 15, 2021 08:45 AM VA-TOBACCO FORMER USER [facility] May 15, 2021 08:45 AM VA-TOBACCO QUIT 1 TO < 5 YRS [facility] Jun 04, 2020 10:30 AM VA-TOBACCO FORMER USER [facility] Jun 04, 2020 10:30 AM VA-TOBACCO QUIT < 1 YEAR [facility] May 23, 2019 09:36 AM VA-TOBACCO DOESNT USE WI 30 MIN WAKEUP [facility] May 23, 2019 09:36 AM VA-TOBACCO USE 30 YEARS OR MORE [facility] May 23, 2019 09:36 AM VA-TOBACCO USE ADVICE [facility] May 23, 2019 09:36 AM 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 [facility] May 23, 2019 09:36 AM VA-TOBACCO USE MED NO [facility] May 23, 2019 09:36 AM VA-TOBACCO USER EVERY DAY [facility] Apr 21, 2018 01:18 PM CURRENT SMOKER 1/2 pk a week [facility] Apr 21, 2018 01:18 PM V1-PT DECLINES REF TO TOBACCO CESS [facility] Apr 21, 2018 01:18 PM V1-PT DECLINES TOB ACCO CESSATION MEDS [facility] Apr 21, 2018 01:18 PM V1-PT THINKING ABO UT QUIT TOBACCO USE [facility] Oct 18, 2017 02:19 PM V1-PT NOT INTEREST ED IN QUIT TOBACCO USE [facility] Oct 04, 2017 01:55 PM CURRENT SMOKER .5 packs a day [facility] Advance Directives: All historical and current Section Date Range: From patient's date of to the date document was created. This section includes ALL of a patient's completed or amended [place] Advance and Rescinded Directives. The entries below indicate that a directive exists for the patient, but an actual copy is not included with this document. The data comes from all [place] facilities. Date Advance Directives Provider Source Feb 13, 2003 ADVANCE DIRECTIVE KAT OVIEDO [facility] Encounter Notes: All associated encounter notes This section contains the clinical notes associated to the Encounter. Date/Time Encounter Note(s) Provider Source Nov 11, 2023 10:33 AM NUTRITION NOTE: LOCAL TITLE: LOW INTENSITY/LOW ACUITY MONTHLY MONITOR NOTE STANDARD TITLE: NUTRITION NOTE DATE OF NOTE: NOV 11, 2023@10:33 ENTRY DATE: NOV 11, 2023@10:33:46 AUTHOR: ALEC QUILES EXP COSIGNER: URGENCY: STATUS: COMPLETED The is enrolled in the Home Telehealth (HT) program and continues to be monitored via HT technology. The data sent by the [place] is reviewed and analyzed by the HT staff, who provide ongoing case management and [facility] health education while communicating and collaborating with the health care team as appropriate. This note covers a total of 30 minutes for the month monitored. Month monitored:OCTOBER 2023 Dx: E66.01 severe obesity /es/ ALEC QUILES RD,LDN STAFF DIETITIAN Signed: 11/11/2023 10:37 ALEC QUILES [facility]
--- OUTSIDE RECORDS SUMMARY | 2024-08-18 13:09 | XMS_ITS ---
Author Name [facility] [place] Organization [facility] [place] Address [address] [place] [address] Care Team Providers Care Computer Systems Software Architect Name Role Phone ALEXANDR YODER Primary Care [...] LYLE (WNR) MEDICARE ADVANTAGE HUMAN A [facility] Mar 23, 2023 [id number] [phone] Ezekiel WILKERSON PATIENT Selected Encounter This section includes the information on record at [place] for the Encounter. Date/Time Encounter Type Encounter Description Reason Provider Source Dec 09, 2023 01:30 PM OFFICE O/P EST SF 10 MIN PRIMARY CARE/MEDICINE ICD-10-CM R49.9 Unspecified voice and resonance disorder MARY DIAZ Chucky Encounter Template Text not used by [place] Assessments - Encounter Diagnoses This section includes the primary and secondary diagnoses documented for the Encounter. Date/Time Primary/Secondary Diagnosis Diagnosis Name Provider Source Dec 09, 2023 02:19 PM PRIMARY Unspecified voice and resonance disorder MARY DIAZ [facility] [place] [facility] Plan of Treatment: Future Appointments (+ 6 months) and Future Tests (+/- 45 days) The Plan of Treatment section includes future care activities for the patient from all [place] treatmentfacilities. This section includes future appointments and future orders which are active, pending or scheduled. Future Appointments This section includes appointments that were scheduled to occur 6 months from the date of the Encounter, up to a maximum of 20 appointments. The data comes from all [facility] facilities. Appointment Date/Time Appointment Type Appointme nt Facility Name Dec 17, 2023 01:00 PM AMBULATORY - PSYCHIATRY [facility] [place] [facility] Dec 17, 2023 01:30 PM AMBULATORY - PSYCHIATRY [facility] [place] [facility] January 05, 2024 11:30 AM AMBULATORY - MEDICINE [facility] [place] [facility] January 21, 2024 01:30 PM AMBULATORY - PSYCHIATRY [facility] [place] [facility] Feb 16, 2024 01:30 PM AMBULATORY - MEDICINE [facility] [place] [facility] Feb 18, 2024 03:00 PM AMBULATORY - MEDICINE [facility] [facility] Mar 03, 2024 01:30 PM AMBULATORY - PSYCHIATRY [facility] [place] [facility] Apr 06, 2024 08:30 AM AMBULATORY - MEDICINE [facility] [place] [facility] Apr 19, 2024 02:15 PM AMBULATORY - MEDICINE [facility] [place] [facility] May 05, 2024 01:30 PM AMBULATORY - PSYCHIATRY [facility] [place] [facility] Vital Signs: All taken on the encounter date This section contains inpatient and outpatient Vital Signs collected on the date of the Encounter. Date/Time Temperature Pulse Blood Pressure Respiratory Rate SP02 Pain Height Weight Body Mass Index Source Dec 09, 2023 02:31 PM 97.7 94 138/82 16 97 2 252.8 42 [facility] [place] [facility] Dec 09, 2023 01:30 PM 98 79 130/83 20 94 [facility] [place] [facility] Social History: Smoking Status (Most current) and Tobacco Use (All prior to encounter date) This section includes the most current, and the historical, smoking and tobacco- related health factors from the [facility] facility where the Encounter took place. Current Smoking Status This section includes the most current smoking, or tobacco-related health factor, from the [facility] facility where the Encounter took place. Date/Time Current Smoking Status Comment Facil ity Apr 07, 2023 01:30 PM VA-TOBACCO FORMER USER [facility] [place] [facility] Tobacco Use History This section includes a history of the smoking, or tobacco-related health factors, that were collected on or before the date of the Encounter. The data comes from the [facility] facility where the Encounter took place. Date/Time Smoking Status/Tobac co Use Comment [facility] Apr 07, 2023 01:30 PM VA-TOBACCO QUIT 5 TO < 15 YRS [facility] [place] [facility] May 07, 2022 09:30 AM VA-TOBACCO FORMER USER [facility] [place] [facility] May 07, 2022 09:30 AM VA-TOBACCO QUIT 1 TO < 5 YRS [facility] [place] [facility] May 15, 2021 08:45 AM VA-TOBACCO FORMER USER [facility] [facility] May 15, 2021 08:45 AM VA-TOBACCO QUIT 1 TO < 5 YRS [facility] [place] [facility] Jun 04, 2020 10:30 AM VA-TOBACCO FORMER USER [facility] [facility] Jun 04, 2020 10:30 AM VA-TOBACCO QUIT < 1 YEAR [facility] [place] [facility] May 23, 2019 09:36 AM VA-TOBACCO DOESNT USE WI 30 MIN WAKEUP [facility] [place] [facility] May 23, 2019 09:36 AM VA-TOBACCO USE 30 YEARS OR MORE [facility] [facility] May 23, 2019 09:36 AM VA-TOBACCO USE ADVICE [facility] [place] [facility] May 23, 2019 09:36 AM VA-TOBACCO USE 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 [facility] [place] [facility] May 23, 2019 09:36 AM VA-TOBACCO USE MED NO [facility] [facility] May 23, 2019 09:36 AM VA-TOBACCO USER EVERY DAY [facility] [place] [facility] Apr 21, 2018 01:18 PM CURRENT SMOKER 1/2 pk a week [facility] [place] [facility] Apr 21, 2018 01:18 PM V1-PT DECLINES REF TO TOBACCO CESS PRGM [facility] [facility] Apr 21, 2018 01:18 PM V1-PT DECLINES TOB ACCO CESSATION MEDS [facility] Apr 21, 2018 01:18 PM V1-PT THINKING ABO [facility] QUIT TOBACCO USE [facility] Oct 18, 2017 02:19 PM V1-PT NOT INTEREST ED IN QUIT TOBACCO USE [facility] Oct 04, 2017 01:55 PM CURRENT SMOKER .5 packs a day [facility] Advance Directives: All historical and current Section Date Range: From patient's date of to the date document was created. This section includes ALL of a patient's completed or amended [place] Advance and Rescinded Directives. The entries below indicate that a directive exists for the patient, but an actual copy is not included with this document. The data comes from all [place] facilities. Date Advance Directives Provider Source Feb 13, 2003 ADVANCE DIRECTIVE KAT OVIEDO [facility] Encounter Notes: All associated encounter notes This section contains the clinical notes associated to the Encounter. Date/Time Encounter Note(s) Provider Source Dec 09, 2023 01:39 PM PREVENTIVE MEDICIN E NURSING NOTE: LOCAL TITLE: CLINICAL REMINDERS/NURSING STANDARD TITLE: PREVENTIVE MEDICINE NURSING NOTE DATE OF NOTE: DEC 09, 2023@13:39 ENTRY DATE: DEC 09, 2023@13:39:18 AUTHOR: CATHIE JOYCE EXP COSIGNER: URGENCY: STATUS: COMPLETED Depression Screening: Perform PHQ-2 A PHQ-2 screen was performed. The score was 0 which is a negative screen for depression. Over the past two weeks, how often have you been bothered by the following problems? 1. Little interest or pleasure in doing things Not at all 2. Feeling down, depressed, or hopeless Not at all /herlinda/ Cathie Joyce RN Primary Care Staff Nurse Signed: 12/09/2023 13:39 CATHIE JOYCE [facility] Dec 09, 2023 01:38 PM PHYSICIAN NOTE: LOCAL TITLE: MD NOTE STANDARD TITLE: PHYSICIAN NOTE DATE OF NOTE: DEC 09, 2023@13:38 ENTRY DATE: DEC 09, 2023@13:38:52 AUTHOR: MARY DIAZ EXP COSIGNER: URGENCY: STATUS: COMPLETED Patient Name: ANDRZEJ WILKERSON is here for a sick visit. cc: difficulty swallowing. He states that for the past 10 dyas, hes voice sound different and it hurts to swallow. Prior to this, he had a croupy cough. His voice sounds more coarse and harder to make louder sounds. First thing in the morning, he voice is just a whisper. The longer he talks, he feels like there is a pinch in the throat and he has to clear his throut. It is uncomfortalbe to swallow liquids but no choking. It hurts to swallow harder foods - soft food or liquids are better. He was already eating soft food since he broke his bottom dentures, but now he has to eat even softer foods. He denies any vhoking. His symptoms have gotten worse instead of better over the past 10 days. He has had a swallow evaluation last summer for feeling like food was getting stuck in the summer of 2022. Past Medical History: Active problems - Computerized Problem List is the source for the followin. 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 Colonoscopy normal [facility] 10/2021-- Repeat colonoscopy for screening purposes on 10/2031 3. Degenerative disc disease moderate to severe lumbar DDD on xray 08/2022 4. Depression 5. Sleep apnea 6. Supraventricular tachycardia 05/13/21 [facility] Successful Ablation 7. HTN - Hypertension (SCT [id number]) 8. Anxiety disorder 9. H/O: gastric ulcer reports approximately 15 years ago. 10. Steatosis of liver 05/2019 - Liver labs - wnl 11. Partial tear, knee, anterior cruciate ligament s/p fall - right knee trauma ( seen [facility]/ 05/23/19 06/07/19 - MRI - [facility] - anterior Cruciate ligament tear Orthopedical [...] Obesity 18. Patient requires hospitalization sent to [facility] - for DVT ( chest PAIN) 19. History of surgery Mastoid - left ear - in [facility] [place]olecysectomy - [place] right knee ? 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 Chronic obstructive lung disease MED: ALBUTEROL 100/IPRATRO, ALBUTEROL 90MCG 21. Unemployed [facility] 22. Obesity 23. H/O: Deep vein thrombosis per pt report - upper arm ( afer iv- non [facility] hospital ) 24. Adult screening status HEMOGLOBIN A1C 6.0 ( 2017) 10/2017 AAA - mildly aneurysmal at 3.0 cm in diameter. HepC Ab NON-REACTIVE repeat US showing no AAA no need for US f/u Allergies: BEE STINGS, PENICILLIN, DOXYCYCLINE Current Medications: Active Outpatient Medications (including Supplies): ALBUTEROL 3/IPRATROP [...] SLEEP Non-VA OTHER CAP/TAB BY MOUTH ACTIVE ROS: General: no fever CV: no cp, no sob, no palpitations Lung: no VITALE, no cough, no wheezing Abd: no n/v/d, no pain Psych: no SI PE: BP:130/83 (12/09/2023 13:30) Pulse:79 (12/09/2023 13:30) Resp:20 (12/09/2023 13:30) Temp:98 F [36.7 C] (12/09/2023 13:30) Pulse Oximetry VITAL SIGNS SELECTED Measurement DT POx (L/MIN)(%) 12/09/2023 13:30 94 Pain:3 (11/05/2023 11:18) Weight:253.5 lb [114.99 kg] (11/17/2023 11:36) Height:65 in [165.1 cm] (07/26/2023 14:01) BMI: 42.3 General: NAD, hoarse voice, no cough HEENT: OP clear, no LAD CV: S1S2 rrr, no m/r/g noted Lung: CTA b/l, no wheeze, rhonchi, or crackles, good breath sounds to bases b/l Ext: no edema, warm and well perfused b/l Psych: A&O x3, appropriate mood and affect A/P HOARSE VOICE with difficulty swallowing, symptoms getting worse over past 10 days and preceded by URI which has not resolved. Has h/o smoking off and on since 16yo, quit in 2019. No ETOH. +COPD. Likely post-viral inflammation but given worsening symptoms and h/o smoking, referreing to ENT for furtehr evaluation. - ENT referral placed and he will be seen today f/u with PCP and specialists as scheduled The above plan and education was reviewed with the [place] and they verbalized understanding. No change to medications. Medication Reconciliation: Outpatient: Has the patient been taking medications as documented in the EMLR? YES: The patient has been taking medications as documented in the EMLR. Essential Medication List for Review used to complete this medication reconciliation. INCLUDED IN THIS LIST: Alphabetical list of active outpatient prescriptions dispensed from this [facility] (local) and dispensed from another VA or [facility] facility (remote) as well as [...] whether with a VA or non-VA provider. Medication List: JLV Link Data on this list may not be complete. Please check JLV. Allergies/ADRs (Tool #5) FACILITY ALLERGY/ADR -------- [facility] INSECT STINGS [facility] PENICILLIN [facility] BEE STINGS [facility]EN[facility]ILL[facility] [place] [facility] [place] [facility] DOXY[facility] [place] [facility] PENICILLIN [facility] INSECT STINGS [facility] PENICILLIN Med. Reconciliation (Tool #1) INCLUDED IN THIS LIST: Alphabetical list of active outpatient prescriptions dispensed from this [facility] (local) and dispensed from another [facility] or [facility] facility (remote) as well as inpatient orders (local pending and active), local clinic medications, locally documented non-VA medications, and local prescriptions that have or been discontinued in the past 90 days. Non-VA Meds Last Documented On: Apr 21, 2023 NOTE The display of VA prescriptions dispensed from another [facility] or [facility] facility (remote) is limited to active outpatient prescription entries matched to National Drug File at the originating site and may not include some items such as investigational drugs, compounds, etc. NOT INCLUDED IN THIS LIST: Medications self-entered by the patient into personal health records (i.e. [employer]) are NOT included in this list. Non-VA medications documented outside this [facility], remote inpatient orders (regardless of status) and remote clinic medications are NOT included in this list. The patient and provider must always discuss medications the patient is taking, regardless of where the medication was dispensed or obtained. OUTPT ALBUTEROL 3/IPRATROP 0.5MG/3ML INHL 3ML (Status = Active) INHALE 1 AMPULE IN NEBULIZER TWICE DAILY NEEDED FOR WHEEZING Rx# [id number] Last Released: 10/09/23 Qty/Days Supply: 60 Rx Expiration Date: 10/08/24 Refills Remainin OUTPT ALBUTEROL 90MCG (CFC-F) 200D ORAL INHL (Status = Active) INHALE 2 PUFFS BY MOUTH EVERY 4 HOURS NEEDED Rx# [id number] Last Released: 11/05/23 Qty/Days Supply: Rx Expiration Date: 11/05/24 Refills Remainin Indication: FOR BRONCHOSPASM PREVENTION OUTPT ALBUTEROL SO4 0.083% INHL 3ML (Status = Active) INHALE 1 AMPULE IN NEBULIZER EVERY 6 HOURS NEEDED FOR BREATHING Rx# [id number] Last Released: 05/25/23 Qty/Days Supply: 120/30 Rx Expiration Date: 01/26/24 Refills Remainin OUTPT ASPIRIN 325MG EC TAB (Status = Active) TAKE ONE TABLET BY MOUTH ONCE DAILY TO PREVENT STROKE/HEART ATTACK Rx# [id number] Last Released: 11/24/23 Qty/Days Supply: 100 Rx Expiration Date: 01/09/24 Refills Remainin Indication: FOR MYOCARDIAL REINFARCTION PREVENTION OUTPT BENZONATATE 200MG CAP (Status = ) TAKE ONE CAPSULE BY MOUTH THREE TIMES DAILY NEEDED FOR COUGH Rx# [id number] Last Released: 11/05/23 Qty/Days Supply: 21/06 Rx Expiration Date: 12/05/23 Refills Remainin Indication: FOR COUGH OUTPT BUSPIRONE HCL 10MG TAB (Status = Discontinued) TAKE TWO TABLETS BY MOUTH TWICE DAILY FOR ANXIETY Rx# [id number] Last Released: 11/01/23 Qty/Days Supply: 120/30 Rx Expiration Date: 09/24/24 Refills Remainin Indication: FOR ANXIETY OUTPT BUSPIRONE HCL 10MG TAB (Status = Active) TAKE TWO TABLETS BY MOUTH TWICE DAILY FOR ANXIETY Rx# [id number] Last Released: 11/23/23 Qty/Days Supply: 120/30 Rx Expiration Date: 11/22/24 Refills Remainin Indication: FOR ANXIETY OUTPT BUSPIRONE HCL 15MG TAB (Status = Discontinued) TAKE ONE TABLET BY MOUTH TWICE DAILY Rx# [id number] Last Released: 08/27/23 Qty/Days Supply: 6030 Rx Expiration Date: 08/27/24 Refills Remainin Indication: FOR ANXIETY OUTPT CETIRIZINE HCL 10MG TAB (Status = Active) TAKE ONE TABLET BY MOUTH ONCE DAILY FOR ALLERGIES Rx# [id number] Last Released: 09/30/23 Qty/Days Supply: 90 Rx Expiration Date: 01/05/24 Refills Remainin OUTPT CLOTRIMAZOLE 1% TOP SOLN (Status = ) APPLY DIRECTED TOPICALLY ONCE DAILY FOR FUNGAL INFECTION Rx# [id number] Last Released: 05/25/23 Qty/Days Supply: 30 Rx Expiration Date: 10/10/23 Refills Remainin Indication: FOR FUNGAL INFECTION OF THE SKIN OUTPT CYANOCOBALAMIN 1000MCG TAB (Status = ) TAKE ONE TABLET BY MOUTH ONCE DAILY FOR VITAMIN SUPPLEMENTATION Rx# [id number] Last Released: 03/09/23 Qty/Days Supply: 90 Rx Expiration Date: 09/12/23 Refills Remainin Indication: FOR PREVENTION OF VITAMIN B12 DEFICIENCY OUTPT ESCITALOPRAM OXALATE 20MG TAB (Status = Discontinued) TAKE ONE TABLET BY MOUTH ONCE DAILY FOR MOOD/DEPRESSION Rx# [id number] Last Released: 08/31/23 Qty/Days Supply: 90 Rx Expiration Date: 11/18/23 Refills Remainin Indication: FOR MAJOR DEPRESSIVE DISORDER OUTPT ESCITALOPRAM OXALATE 20MG TAB (Status = Active) TAKE ONE TABLET BY MOUTH ONCE DAILY FOR MOOD/DEPRESSION Rx# [id number] Last Released: 10/29/23 Qty/Days Supply: 90 Rx Expiration Date: 10/29/24 Refills Remainin Indication: FOR MAJOR DEPRESSIVE DISORDER OUTPT FLUTICAS 100/SALMETEROL 50 INHL DISK 60 (Status = Discontinued) INHALE 1 PUFF BY MOUTH TWICE DAILY - RINSE MOUTH AFTER USE Rx# [id number] Last Released: 09/24/23 Qty/Days Supply: 09/21 Rx Expiration Date: 07/26/24 Refills Remainin Indication: FOR BRONCHOSPASM PREVENTION WITH COPD OUTPT FLUTICAS 250/SALMETEROL 50 INHL DISK 60 (Status = Active) INHALE 1 PUFF BY MOUTH EVERY 12 HOURS - RINSE MOUTH AFTER USE Rx# [id number] Last Released: 11/05/23 Qty/Days Supply: 09/21 Rx Expiration Date: 10/08/24 Refills Remainin OUTPT LEVOTHYROXINE NA (SYNTHROID) 150MCG TAB (Status = Active) TAKE ONE TABLET BY MOUTH EVERY MORNING 30 MINUTES BEFORE BREAKFAST FOR THYROID - TAKE ON AN EMPTY STOMACH WITH A FULL GLASS OF WATER Rx# [id number] Last Released: 10/25/23 Qty/Days Supply: Rx Expiration Date: 01/05/24 Refills Remainin OUTPT OMEPRAZOLE 20MG EC CAP (Status = Active) TAKE ONE CAPSULE BY MOUTH EVERY MORNING 30 MINUTES BEFORE BREAKFAST Rx# [id number] Last Released: 10/08/23 Qty/Days Supply: Rx Expiration Date: 07/26/24 Refills Remainin Indication: FOR GASTROESOPHAGEAL REFLUX DISEASE Non-VA OTHER CAP/TAB TAKE BY MOUTH Aug 11, 2022 Non-VA medication recommended by VA provider. Elderberry supplement for immune support Indication: UNKNOWN OUTPT TRAZODONE HCL 50MG TAB (Status = Active) TAKE ONE-HALF TABLET BY MOUTH AT BEDTIME NEEDED FOR SLEEP Rx# [id number] Last Released: 05/25/23 Qty/Days Supply: Rx Expiration Date: 04/07/24 Refills Remainin Indication: FOR INSOMNIA ASSOCIATED WITH DEPRESSION SUPPLIES PHARMACY TERMS AND POSSIBLE PATIENT ACTIONS INPT = UT inpatient order IV = UT intravenous medication OUTPT = UT outpatient prescription PHARMACY POSSIBLE PATIENT TERMS EXPLANATION ACTIONS -------- ----- ACTIVE A prescription that can be If you have refills, filled at the local [facility] pharmacy. you may request a refill of this prescription from your [facility] pharmacy. CLINIC A medication you received during If you have questions a visit to a UT clinic or about this medication emergency department. contact your UT healthcare team. DISCONTINUED A prescription your provider has Contact your VA stopped. It is no longer healthcare team if you available to be sent to you or need more of this picked up at the UT pharmacy medication. window. A prescription which is too old Contact your VA to fill. This does not refer to healthcare team if you the expiration date of the need more of this medication in the container. medication. NON-VA A medication that came from If this medication someplace other than a VA information is pharmacy. This may be a incorrect or out of prescription from either the VA date, please tell your or non VA providers that was VA healthcare team. filled outside the VA. Or, it may be an [id number] (OTC), herbal, dietary supplements or sample medication. ON HOLD An active prescription that will Contact your VA not be filled until pharmacy pharmacy when you need resolves the issue. more of this medication. PARKED An active prescription that will Contact your VA not be filled until the patient pharmacy when you need requests it. this medication. PENDING This prescription order has been If you have been sent to the pharmacy for review instructed to start and is not ready yet. this medication now, contact your VA pharmacy. SUSPENDED An active prescription that is Contact your VA not scheduled to be filled yet. pharmacy if you need You should receive it before this medication now. you run out. /es/ MARY DIAZ M.D. PHYSICIAN Signed: 12/09/2023 14:19 MARY DIAZ [facility]
--- OUTSIDE RECORDS SUMMARY | 2024-08-18 13:09 | XMS_ITS | Encounter Summary ---
Author Name [facility] of [place] [place] Organization [place] Address [address] [place] [address] Care Team Providers Care Tip Stretcher Name Role Phone ALEXANDR YODER Primary Care [...] Name Patient's Relationship to Policy [place] [facility] (WNR) MEDICARE ADVANTAGE HUMAN A INSUR ANCE COM Mar 23, 2023 [id number] [phone] Ezekiel WILKERSON PATIENT Selected Encounter This section includes the information on record at [place] for the Encounter. Date/Time Encounter Type Encounter Description Reason Pro vider Source IHE Encounter Template Text not used by VA Advance Directives: All historical and current Section Date Range: From patient's date of to the date document was created. This section includes ALL of a patient's completed or amended VA Advance and Rescinded Directives. The entries below indicate that a directive exists for the patient, but an actual copy is not included with this document. The data comes from all [place] facilities. Date Advance Directives Provider Source Feb 13, 2003 ADVANCE DIRECTIVE KAT OVIEDO [facility]
--- OUTSIDE RECORDS SUMMARY | 2024-08-18 13:09 | XMS_ITS ---
Author Name [facility] [place] Organization [facility] [place] Address [address] [place] [address] Care Team Providers Care Data Report Analyst Name Role Phone ALEXANDR YODER Primary [...] [facility] Mar 23, 2023 [id number] [phone] Ezekiel WILKERSON PATIENT Selected Encounter This section includes the information on record at [place] for the Encounter. Date/Time Encounter Type Encounter Description Reason Provider Source January 05, 2024 11:30 AM OFFICE O/P EST MOD 30 MIN PRIMARY CARE/MEDICINE ICD-10-CM M25.511 Pain in right shoulder ALEXANDR YODER [facility] Encounter Template Text not used by [place] Assessments - Encounter Diagnoses This section includes the primary and secondary diagnoses documented for the Encounter. Date/Time Primary/Secondary Diagnosis Diagnosis Name Provider Source January 07, 2024 01:17 PM PRIMARY Pain in right shoulder ALEXANDR YODER [place] [facility] [place] [facility] January 07, 2024 01:17 PM SECONDARY Chronic obstructive pulmonary disease w (acute) exacerbation ALEXANDR YODER [place] [facility] [place] [facility] Plan of Treatment: Future Appointments (+ 6 months) and Future Tests (+/- 45 days) The Plan of Treatment section includes future care activities for the patient [facility] [place] [facility] This section includes future appointments [...] AMBULATORY - PSYCHIATRY [place] [facility] [place] [facility] Feb 16, 2024 01:30 PM AMBULATORY - MEDICINE [place] [facility] [place] [facility] Feb 18, 2024 03:00 PM AMBULATORY - MEDICINE [place] [facility] [place] [facility] Mar 03, 2024 01:30 PM AMBULATORY - PSYCHIATRY [place] [facility] [place] [facility] Apr 06, 2024 08:30 AM AMBULATORY - MEDICINE [place] [facility] [place] [facility] Apr 19, 2024 02:15 PM AMBULATORY - MEDICINE [place] [facility] [place] [facility] May 05, 2024 01:30 PM AMBULATORY - PSYCHIATRY [place] [facility] [place] [facility] Jun 13, 2024 09:30 AM AMBULATORY - MEDICINE [place] [facility] [place] [facility] Jun 19, 2024 02:00 PM AMBULATORY - MEDICINE [place] [facility] [place] [facility] Jun 21, 2024 01:30 PM AMBULATORY - PSYCHIATRY [place] [facility] [place] [facility] Jun 28, 2024 02:30 PM AMBULATORY - PSYCHIATRY [place] [facility] [place] [facility] Jul 04, 2024 11:00 AM AMBULATORY - MEDICINE [place] [facility] [place] [facility] Vital Signs: All taken on the encounter date This section contains inpatient and outpatient Vital Signs collected on the date of the Encounter. Date/Time Temperature Pulse Blood Pressure Respiratory Rate SP02 Pain Height Weight Body Mass Index Source January 05, 2024 11:19 AM 98.1 78 126/83 18 91 2 261 44 [place] [facility] [place] [facility] Social History: Smoking Status (Most current) [...] VA-TOBACCO QUIT 5 TO < 15 YRS [place] [facility] Tobacco Use History This section includes a history of the smoking, or tobacco-related health factors, that were collected on or before the date of the Encounter. The data comes from the [place] facility where the Encounter took place. Date/Time Smoking Status/Tobac co Use Comment Facility Apr 07, 2023 01:30 PM VA-TOBACCO QUIT 5 TO < 15 YRS [facility] [place] [facility] May 07, 2022 09:30 AM VA-TOBACCO FORMER USER [place] [facility] [place] [facility] May 07, 2022 09:30 AM VA-TOBACCO QUIT 1 TO < 5 YRS [place] [facility] [place] [facility] May 15, 2021 08:45 AM VA-TOBACCO FORMER USER [place] [facility] [place] [facility] May 15, 2021 08:45 AM VA-TOBACCO QUIT 1 TO < 5 YRS [place] [facility] [place] [facility] Jun 04, 2020 10:30 AM VA-TOBACCO FORMER USER [place] [facility] [place] [facility] Jun 04, 2020 10:30 AM VA-TOBACCO QUIT < 1 YEAR [place] [facility] [place] [facility] May 23, 2019 09:36 AM VA-TOBACCO DOESNT USE WI 30 MIN WAKEUP [place] [facility] [place] [facility] May 23, 2019 09:36 AM VA-TOBACCO USE 30 YEARS OR MORE [place] [facility] [place] [facility] May 23, 2019 09:36 AM VA-TOBACCO USE ADVICE [place] [facility] [place] [facility] May 23, 2019 09:36 AM VA-TOBACCO USE EQUIPMENT WASHER NO [place] [facility] [place] [facility] May 23, 2019 09:36 AM VA-TOBACCO USE MED NO [place] [facility] [place] [facility] May 23, 2019 09:36 AM VA-TOBACCO USER EVERY DAY [place] [facility] [place] [facility] Apr 21, 2018 01:18 PM CURRENT SMOKER 1/2 pk a week [facility] Apr 21, 2018 01:18 PM V1-PT DECLINES REF TO TOBACCO CESS PRGM [facility] Apr 21, 2018 01:18 PM V1-PT DECLINES TOB ACCO CESSATION MEDS [facility] Apr 21, 2018 01:18 PM V1-PT THINKING ABO UT QUIT TOBACCO USE [facility] Oct 18, 2017 02:19 PM V1-PT NOT INTEREST ED IN QUIT TOBACCO USE [facility] Oct 04, 2017 01:55 PM CURRENT SMOKER .5 packs a day [facility] Advance Directives: All historical and current [...] Feb 13, 2003 ADVANCE DIRECTIVE KAT OVIEDO [facility] Encounter Notes: All associated encounter notes This section contains the clinical notes associated to the Encounter. Date/Time Encounter Note(s) Provider Source January 05, 2024 11:27 AM PRIMARY CARE NURSE PRACTITIONER OUTPATIENT NOTE: LOCAL TITLE: NURSE PRACTITIONER OUTPATIENT NOTE STANDARD TITLE: PRIMARY CARE NURSE PRACTITIONER OUTPATIENT NOTE DATE OF NOTE: JANUARY 05, 2024@11:27 ENTRY DATE: JANUARY 05, 2024@11:27:39 AUTHOR: ALEXANDR YODER EXP COSIGNER: URGENCY: STATUS: COMPLETED Chief complaint: Pt is a 68 who comes in for follow up of medical problems as noted below. HPI: her with R shoulder pain after a fall he sustained after stepping on cat tail and when the cat got startled so did he and he fell on outstretched arm bilaterally as he slowly lowered himself, he denies hitting head of any LOC or syncope when he fell he was facing forward and most of weight was on right arm and shoulder causing a strain he tried to give in a few days but want to come in he denies hearing snap has ROM but shoulder feels sore Dyspnea he follows with Dr Landaverde from [facility] changed inhalers to trilogy He saw Dr Landaverde who ordered CXR and started him on Zpak also did that inhaler change so today is day two. He is feeling better but still short of breath he has neb at home has not needed today. He has upcoming f/u with Dr Landaverde PMH: Active problems - Computerized Problem List is the source for the followin. 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 Colonoscopy normal [facility] 10/2021-- Repeat colonoscopy for screening purposes on 10/2031 3. Degenerative disc disease moderate to severe lumbar DDD on Xray 08/2022 4. Depression 5. Sleep apnea 6. Supraventricular tachycardia 05/13/21 [facility]ful Ablation 7. HTN - Hypertension (SCT [id number]) 8. Anxiety disorder 9. H/O: gastric ulcer reports approximately 15 years ago. 10. Steatosis of liver 05/2019 - Liver labs - wnl 11. Partial tear, knee, anterior cruciate ligament s/p fall - right knee trauma ( seen [facility]/ 05/23/19 06/07/19 - MRI - [facility] - anterior Cruciate ligament tear Orthopedical surgical consult - 12. Bilateral knee pain MED:DICLOFENAC NA 1% XRAY - Normal TREAT - PT/ Rehab MED 13. Chronic kidney disease stage 2 GFR 54 14. Ocular rosacea 15. Radioactive iodine-induced hypothyroidism MED:LEVOTHYROXINE NA (SYNTHROID) 0.15MG 16. Tobacco use stopped smoking 06/2019 ( required for knee surgery ) 17. Obesity 18. Patient requires hospitalization sent to [facility] - for DVT ( chest PAIN) 19. History of surgery Mastoid - left ear - in [facility] - [place] right knee ? 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 Chronic obstructive lung disease MED: ALBUTEROL 100/IPRATRO, ALBUTEROL 90MCG 21. Unemployed [facility] disability [facility] 22. Obesity 23. H/O: Deep vein thrombosis per pt report - upper arm ( [facility]- [facility] ) 24. Adult screening status HEMOGLOBIN [...] ALBUTEROL 3/IPRATROP 0.5MG/3ML INHL 3ML INHALE 1 VIAL ACTIVE (3ML) IN NEBULIZER TWICE DAILY 2) ALBUTEROL 90MCG (CFC-F) 200D ORAL INHL INHALE 2 PUFFS ACTIVE BY MOUTH EVERY 4 TO 6 HOURS NEEDED FOR WHEEZING OR SHORTNESS OF BREATH 3) ALBUTEROL SO4 0.083% INHL 3ML INHALE 1 AMPULE IN ACTIVE NEBULIZER EVERY 6 HOURS NEEDED FOR BREATHING 4) AMLODIPINE BESYLATE 10MG TAB TAKE ONE TABLET BY MOUTH ACTIVE ONCE DAILY FOR BLOOD PRESSURE/HEART, DO NOT TAKE WITH GRAPEFRUIT JUICE NOTE NEW TABLET STRENGTH/INCREASED DOSE 5) ASPIRIN 325MG EC TAB TAKE ONE TABLET BY MOUTH ONCE ACTIVE DAILY TO PREVENT STROKE/HEART ATTACK 6) BUSPIRONE HCL 10MG TAB TAKE TWO TABLETS BY MOUTH ACTIVE TWICE DAILY 7) CETIRIZINE HCL 10MG TAB TAKE ONE TABLET BY MOUTH ONCE ACTIVE DAILY FOR ALLERGIES 8) ESCITALOPRAM OXALATE 20MG TAB TAKE ONE TABLET BY ACTIVE MOUTH ONCE DAILY FOR MOOD/DEPRESSION 9) FLUTICAS 250/SALMETEROL 50 INHL DISK 60 INHALE 1 PUFF ACTIVE BY MOUTH EVERY 12 HOURS - RINSE MOUTH AFTER USE 10) LEVOTHYROXINE NA (SYNTHROID) 150MCG TAB TAKE ONE ACTIVE TABLET BY MOUTH EVERY MORNING 30 MINUTES BEFORE BREAKFAST FOR THYROID - TAKE ON AN EMPTY STOMACH WITH A FULL GLASS OF WATER 11) OMEPRAZOLE 20MG EC CAP TAKE ONE CAPSULE BY MOUTH ACTIVE EVERY MORNING 30 MINUTES BEFORE BREAKFAST 12) PRAZOSIN HCL 1MG CAP TAKE ONE CAPSULE BY MOUTH AT ACTIVE BEDTIME Active Non-VA Medications Status 1) Non-VA OTHER CAP/TAB BY MOUTH ACTIVE 13 Total Medications Allergies: BEE STINGS, PENICILLIN, DOXYCYCLINE VITAL SIGNS: 98.1 F [36.7 C] (01/05/2024 11:19) 78 (01/05/2024 11:19) 18 (01/05/2024 11:) 126/83 (01/05/2024 11:) 2 (01/05/2024:) 65 in [165.1 cm] (07/26/2023 14:01) 261 lb [118.39 kg] (01/05/2024:) BMI: 43.5 ROS SKIN: denies any rashes or suspicious lesions HEENT: denies vision problem, hearing loss, tinnitus, dysphagia, pharyngitis RESP: denies SOB or cough CV: denies CP or pedal Edema GI: denies Abd pain, hematochezia : denies hematuria, nocturia ENDO: denies polyuria, polydipsia, unexplained WT loss or temp intolerance Musculo: denies weakness or joint pain NEURO: denies seizure hx or paresthesia's Mental Health: Denies SI, HI or depression PHYSI BEATRIS EXAM GENERAL: well appearing in NAD, speaking in clear sentences. SKIN: Clean, dry intact no rashes no ecchymosis or erythema, no lesions or nodules observed. Musculo: FROM Head/Neck with equal strength Upper extremities with FROM and equal strength Has tenderness of right deltoid no distal radial pain to palpate bilaterally, has FROM of wrists bilat. no guarding or deformities, Spine normal 3 curvature, no paraspinal TTP NEURO CN II-XII grossly intact, gait steady without shuffle but slow at baseline MENTAL A&Ox3 Appropriate, Pleasant, Cooperative LAB RESULTS LAST 1440 HRS - NONE FOUND Future Clinic Visits 01/05/2024 11:30 CWM/NO/PACT 5 01/21/2024 13:30 CWM/NO/MHC/CLP2 02/07/2024 14:30 CWM/NO/PACT 5 02/16/2024 15:00 CWM/NO/PODIATRY/NAIL 12/06/2024 15:00 CWM/NO/OTOLARYNGOLOGY ASSESSMENT AND PLAN: #Right shoulder pain -He feels it is improving with Tylenol -no concerns on exam -If she continue to have pain over next few days without some improvement he will let me know and can image otherwise will Tx conservatively with RICE APAP -Consider PT if needed #COPD flare -Follows with Dr landaverde who has him on Abx and is improving -has upcoming f/u with him Return to clinic to see me in 1 months, RTC sooner if needed. Clinical Reminders Medication Reconciliation: Outpatient: Has the patient been taking medications as documented in the EMLR? YES: The patient has been taking medications as documented in the EMLR. Essential Medication List for Review used to complete this medication reconciliation. INCLUDED IN THIS LIST: Alphabetical list of active outpatient prescriptions dispensed from this [facility] (local) and dispensed from another [place] or Do[place] facility (remote) as well as [...] provider. /herlinda/ JR JOSEPH Nurse Practitioner Signed: 01/07/2024 13:16 ALEXANDR YODER [place] [facility]
--- OUTSIDE RECORDS SUMMARY | 2024-08-18 13:09 | XMS_ITS ---
Author Name [facility] [place] Address [address] [place] [address] Care Team Providers Care Fiberglass Machine Operator Name Role Phone ALEXANDR YODER Primary [...] Relationship to Policy [place] [employer] [facility] (WNR) MEDICARE ADVANTAGE HUMAN A [facility] Mar 23, 2023 [id number] [phone] Ezekiel WILKERSON PATIENT Selected Encounter This section includes the information on record at [place] for the Encounter. Date/Time Encounter Type Encounter Description Reason Pro vider Source January 04, 2024 12:00 AM Outpatient Encounter COMMUNITY CARE CONSULT IHE Encounter Template Text not used by [place] Plan of Treatment: Future Appointments (+ 6 months) and Future Tests (+/- 45 days) The Plan of Treatment section includes future care activities for the patient from all [place] treatmentfacilities. This section includes future appointments and future orders which are active, pending or scheduled. Future Appointments This section includes appointments that were scheduled to occur 6 months from the date of the Encounter, up to a maximum of 20 appointments. The data comes from all [place] treatment facilities. Appointment Date/Time Appointment Type Appointme nt Facility Name January 05, 2024 11:30 AM AMBULATORY [place]ICINE [place] [facility] [place] [facility] January 21, 2024 01:30 PM AMBULATORY - PSYCHIATRY [place] [facility] [place] [facility] Feb 16, 2024 01:30 PM AMBULATORY - MEDICINE [place] [facility] [place] [facility] Feb 18, 2024 03:00 PM AMBULATORY - MEDICINE [place] [facility] [place] [facility] Mar 03, 2024 01:30 PM AMBULATORY - PSYCHIATRY [place] [facility] [place] [facility] Apr 06, 2024 08:30 AM AMBULATORY - MEDICINE [place] [facility] [place] [facility] Apr 19, 2024 02:15 PM AMBULATORY - MEDICINE [place] [facility] [place] [facility] May 05, 2024 01:30 PM AMBULATORY - PSYCHIATRY [place] [facility] [place] [facility] Jun 13, 2024 09:30 AM AMBULATORY - MEDICINE [place] [facility] [facility] Jun 19, 2024 02:00 PM AMBULATORY - MEDICINE [place] [facility] [place] [facility] Jun 21, 2024 01:30 PM AMBULATORY - PSYCHIATRY [place] [facility] [place] [facility] Jun 28, 2024 02:30 PM AMBULATORY - PSYCHIATRY [place] [facility] [place] [facility] Jul 04, 2024 11:00 AM AMBULATORY - MEDICINE [place] [facility] [place] [facility] Social History: Smoking Status (Most current) and Tobacco Use (All prior to encounter date) This section includes the most current, and the historical, smoking and tobacco- related health factors from the [place] facility where the Encounter took place. Current Smoking Status This section includes the most current smoking, or tobacco-related health factor, from the [place] facility where the Encounter took place. Date/Time Current Smoking Status Comment [facility] Apr 07, 2023 01:30 PM VA-TOBACCO QUIT 5 TO < 15 YRS [place] [facility] Tobacco Use History This section includes a history of the smoking, or tobacco-related health factors, that were collected on or before the date of the Encounter. The data comes from the [place] facility where the Encounter took place. Date/Time Smoking Status/Tobac co Use Comment Facility Apr 07, 2023 01:30 PM [place]-TOBACCO QUIT 5 TO < 15 YRS [place] [facility] [place] [facility] May 07, 2022 09:30 AM VA-TOBACCO FORMER USER [place] [facility] [place] [facility] May 07, 2022 09:30 AM VA-TOBACCO QUIT 1 TO < 5 YRS [place] [facility] [place] [facility] May 15, 2021 08:45 AM VA-TOBACCO FORMER USER [place] [facility] [place] [facility] May 15, 2021 08:45 AM VA-TOBACCO QUIT 1 TO < 5 YRS [place] [facility] [place] [facility] Jun 04, 2020 10:30 AM VA-TOBACCO FORMER USER [place] [facility] [place] [facility] Jun 04, 2020 10:30 AM VA-TOBACCO QUIT < 1 YEAR [place] [facility] [place] [facility] May 23, 2019 09:36 AM VA-TOBACCO DOESNT USE WI 30 MIN WAKEUP [place] [facility] [place] [facility] May 23, 2019 09:36 AM VA-TOBACCO USE 30 YEARS OR MORE [facility] [place] [facility] May 23, 2019 09:36 AM VA-TOBACCO USE ADVICE [facility] [place] [facility] May 23, 2019 09:36 AM VA-TOBACCO 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 [place] [facility] [place] [facility] May 23, 2019 09:36 AM VA-TOBACCO USE MED NO [place] [facility] [place] [facility] May 23, 2019 09:36 AM VA-TOBACCO USER EVERY DAY [place] [facility] [place] [facility] Apr 21, 2018 01:18 PM CURRENT SMOKER 1/2 pk a week [place] [facility] [place] [facility] Apr 21, 2018 01:18 PM V1-PT DECLINES REF TO TOBACCO CESS PRGM [place] [facility] [place] [facility] Apr 21, 2018 01:18 PM V1-PT DECLINES TOB ACCO CESSATION MEDS [place] [facility] [place] [facility] Apr 21, 2018 01:18 PM V1-PT THINKING ABO UT QUIT TOBACCO USE [place] [facility] [place] [facility] Oct 18, 2017 02:19 PM V1-PT NOT INTEREST ED IN QUIT TOBACCO USE [place] [facility] [place] [facility] Oct 04, 2017 01:55 PM CURRENT SMOKER .5 packs a day [place] [facility] [place] [facility] Advance Directives: All historical and current Section Date Range: From patient's date of to the date document was created. This section includes ALL of a patient's completed or amended [place] Advance and Rescinded Directives. The entries below indicate that a directive exists for the patient, but an actual copy is not included with this document. The data comes from all [place] facilities. Date Advance Directives Provider Source Feb 13, 2003 ADVANCE DIRECTIVE KAT OVIEDO [facility] Encounter Notes: All associated encounter notes This section contains the clinical notes associated to the Encounter. Date/Time Encounter Note(s) Provider Source January 04, 2024 12:00 AM NONVA CONSULT: LOCAL TITLE: COMMUNITY CARE-CONSULT RESULT NOTE STANDARD TITLE: NONVA CONSULT DATE OF NOTE: JANUARY 04, 2024 ENTRY DATE: JANUARY 14, 2024@10:33:52 AUTHOR: YANDY DEAN EXP COSIGNER: URGENCY: STATUS: COMPLETED VistA Imaging - Scanned Document SCANNED DOCUMENT SIGNATURE NOT REQUIRED Electronically Filed: 01/14/2024 by: YANDY DEAN LICENSED PRACTICAL NURSE YANDY DEAN [place] [facility]
--- OUTSIDE RECORDS SUMMARY | 2024-08-18 13:10 | XMS_ITS ---
Author Name [facility] [place] [facility] [place] Organization [facility] [place] Address [address] [place] [address] Care Team Providers Care Men'S Furnishings Salesperson Name Role Phone ALEXANDR YODER Primary Care [...] LYLE (WNR) MEDICARE ADVANTAGE HUMAN A [facility] Mar 23, 2023 [id number] [phone] Ezekiel WILKERSON PATIENT Selected Encounter This section includes the information on record at [place] for the Encounter. Date/Time Encounter Type Encounter Description Reason Provider Source Mar 08, 2024 03:03 PM HC PRO PHONE CALL 11-20 MIN TELEPHONE PRIMARY CARE ICD-10-CM Z71.89 Other specified counseling CAMDEN NINO E Encounter Template Text not used by [place] Assessments - Encounter Diagnoses This section includes the primary and secondary diagnoses documented for the Encounter. Date/Time Primary/Secondary Diagnosis Diagnosis Name Provider Source Mar 08, 2024 03:03 PM PRIMARY Other specified counseling CAMDEN NINO [facility] [place] [facility] Plan of Treatment: Future [...] 20 appointments. The data comes from all [place] treatment facilities. Appointment Date/Time Appointment Type Appointme nt Facility Name Apr 06, 2024 08:30 AM AMBULATORY - MEDICINE [facility] [place] [facility] Apr 19, 2024 02:15 PM AMBULATORY - MEDICINE [facility] [place] [facility] May 05, 2024 01:30 PM AMBULATORY - PSYCHIATRY [facility] [place] [facility] Jun 13, 2024 09:30 AM AMBULATORY - MEDICINE [facility] [place] [facility] Jun 19, 2024 02:00 PM AMBULATORY - MEDICINE [facility] [place] [facility] Jun 21, 2024 01:30 PM AMBULATORY - PSYCHIATRY [facility] [place] [facility] Jun 28, 2024 02:30 PM AMBULATORY - PSYCHIATRY [facility] [place] [facility] Jul 04, 2024 11:00 AM AMBULATORY - MEDICINE [facility] [place] [facility] Jul 10, 2024 11:00 AM AMBULATORY - REHAB MEDICIN E [facility] [place] [facility] Jul 25, 2024 12:30 PM AMBULATORY - NONE [facility] [place] [facility] Jul 25, 2024 01:00 PM AMBULATORY - PSYCHIATRY [facility] [place] [facility] Jul 31, 2024 01:00 PM AMBULATORY - REHAB MEDICIN E [facility] [place] [facility] Jul 31, 2024 02:00 PM AMBULATORY - MEDICINE [facility] [place] [facility] Aug 08, 2024 08:30 AM AMBULATORY - MEDICINE [facility] [place] [facility] Aug 08, 2024 09:30 AM AMBULATORY - NONE [facility] [place] [facility] Aug 21, 2024 02:30 PM AMBULATORY - REHAB MEDICIN E [facility] [place] [facility] Aug 22, 2024 10:00 AM AMBULATORY - MEDICINE [facility] [place] [facility] Aug 29, 2024 11:00 AM [facility] Aug 29, 2024 11:30 AM [facility]RY [facility] Lab Results: +/- 30 days of the encounter This section includes the Chemistry and Hematology Lab Results on record with [place] for the patient. Radiology Reports and Pathology Reports are provided separately, in subsequent sections. Lab Results This section contains the Chemistry/Hematology Results that were resulted 30 days before or 30 daysafter the date of the Encounter. Date/Time Source Result Type Result - Unit Interpretation Reference Range Comment Feb 16, 2024 02:28 PM [facility] HEPATITIS B SURFACE ANTIBODY (HBsAb)-WH Specimen Type: SERUM No comment entered. Ordering Provider: ALEXANDR YODER Report Released Date/Time: Feb 16, 2024 01:52 PM Reporting Lab: [address] [address] Performing Lab: [address] [address] HBsAb Non Reactive Non Reactive Feb 16, 2024 02:28 PM [facility] THYROID TOTAL T4 Specimen Type: SERUM No comment entered. Ordering Provider: ALEXANDR YODER Report Released Date/Time: Feb 16, 2024 02:10 PM Reporting Lab: [facility] [address] [address] Performing Lab: [facility] [address] [facility] [address] THYROID TOTAL T4 9.87 ug/dL 4.5-12.0 Feb 16, 2024 02:28 PM [facility] TSH Specimen Type: SERUM No comment entered. Ordering Provider: ALXEANDR YODER Report Released Date/Time: Feb 16, 2024 02:10 PM Reporting Lab: [facility] [address] [address] Performing Lab: [address] [address] TSH 0.74 u[IU]/mL 0.35-5.00 Social History: Smoking Status (Most [...] 2023 01:30 PM VA-TOBACCO FORMER USER [facility] [place] [facility] Tobacco Use History This [...] < 15 YRS [facility] [place] [facility] May 07, 2022 09:30 AM VA-TOBACCO FORMER USER [facility] [place] [facility] May 07, 2022 09:30 AM VA-TOBACCO QUIT 1 TO < 5 YRS [facility] [place] [facility] May 15, 2021 08:45 AM VA-TOBACCO FORMER USER [facility] [place] [facility] May 15, 2021 08:45 AM VA-TOBACCO QUIT 1 TO < 5 YRS [facility] [place] [facility] Jun 04, 2020 10:30 AM VA-TOBACCO FORMER USER [facility] [place] [facility] Jun 04, 2020 10:30 AM VA-TOBACCO QUIT < 1 YEAR [facility] [place] [facility] May 23, 2019 09:36 AM VA-TOBACCO DOESNT USE WI 30 MIN WAKEUP [facility] [place] [facility] May 23, 2019 09:36 AM VA-TOBACCO USE 30 YEARS OR MORE [facility] [place] [facility] May 23, 2019 09:36 AM VA-TOBACCO USE ADVICE [facility] [place] [facility] May 23, 2019 09:36 AM VA-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 USE 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 CLEANER NO [facility] [place] [facility] May 23, 2019 09:36 AM VA-TOBACCO USE MED NO [facility] [place] [facility] May 23, 2019 09:36 AM VA-TOBACCO USER EVERY DAY [facility] Apr 21, 2018 01:18 PM CURRENT SMOKER 1/2 pk a week [facility] Apr 21, 2018 01:18 PM V1-PT DECLINES REF TO TOBACCO CESS PRGM [facility] Apr 21, 2018 01:18 PM V1-PT DECLINES TOB ACCO CESSATION MEDS [facility] Apr 21, 2018 01:18 PM V1-PT THINKING ABO UT QUIT TOBACCO USE [facility] Oct 18, 2017 02:19 PM V1-PT NOT INTEREST ED IN QUIT TOBACCO USE [facility] Oct 04, 2017 01:55 PM CURRENT SMOKER .5 packs a day [facility] Advance Directives: All historical and current [...] 13, 2003 ADVANCE DIRECTIVE KAT OVIEDO [facility] Encounter Notes: All associated encounter notes This section contains the clinical notes associated to the Encounter. Date/Time Encounter Note(s) Provider Source Mar 08, 2024 03:03 PM PRIMARY CARE TELEP GABE ENCOUNTER NOTE: LOCAL TITLE: TELEPHONE NOTE/PRIMARY CARE STANDARD TITLE: PRIMARY CARE TELEPHONE ENCOUNTER NOTE DATE OF NOTE: MAR 08, 2024@15:03 ENTRY DATE: MAR 08, 2024@15:03:37 AUTHOR: CAMDEN NINO COSIGNER: URGENCY: STATUS: COMPLETED F: Telephone encounter D/A: Received a call back from . He says that he has a [facility] GI appointment on 04/06/24 with [facility] in the [place] location because he would've had to wait until June to be seen in the [place] location. Sanford says that he has been taking Omeprazole in the morning and Famotidine at bedtime. He says that he is eating a bland diet- no spices. Sanford says that sometimes water hurts to swallow. Sanford verbalized understanding about taking the ASA 325mg with food and to seek emergency care with any bleeding. He says that it has messed up his stomach in the past. Sanford says that he recently mailed back a 14 day heart monitor that the Bill Poster Installer, had ordered for him. Went over the medication list with Sanford. He is not in need of any other medications at this time. appreciative for the assistance. /herlinda/ CAMDEN NINO, MSN, RN, CNL PRIMARY CARE TEAM NURSE Signed: 03/08/2024 15:15 CAMDEN NINO [facility]
--- OUTSIDE RECORDS SUMMARY | 2024-08-18 13:10 | XMS_ITS ---
Author Name Department of [place] [facility] ([place] Organization Department of [place] Address [address] [place] [address] Care Team Providers Care Car Sales Representative Name Role Phone ALEXANDR YODER Primary Care [...] Name Patient's Relationship to Policy [place] [employer] [facility] (WNR) MEDICARE ADVANTAGE HUMAN A INSUR [facility] Mar 23, 2023 [id number] [phone] Ezekiel WILKERSON PATIENT Selected Encounter This section includes the information on record at [place] for the Encounter. Date/Time Encounter Type Encounter Description Reason Pro vider Source Jan 28, 2024 10:58 AM Outpatient Encounter ADMIN PAT ACTIVTIES (MASNONCT) [...] Date/Time Appointment Type Appointme nt Facility Name Feb 16, 2024 01:30 PM AMBULATORY - MEDICINE [facility] [place] [facility] Feb 18, 2024 03:00 PM AMBULATORY - MEDICINE [facility] [place] [facility] Mar 03, 2024 01:30 PM AMBULATORY - PSYCHIATRY [facility] [place] [facility] Apr 06, 2024 08:30 AM AMBULATORY - MEDICINE [facility] [place] [facility] Apr 19, 2024 02:15 PM AMBULATORY - MEDICINE [facility] [place] [facility] May 05, 2024 01:30 PM AMBULATORY - PSYCHIATRY [facility] [place] [facility] Jun 13, 2024 09:30 AM AMBULATORY - MEDICINE [facility] [place] [facility] Jun 19, 2024 02:00 PM AMBULATORY - MEDICINE [facility] [place] [facility] Jun 21, 2024 01:30 PM AMBULATORY - PSYCHIATRY [facility] [place] [facility] Jun 28, 2024 02:30 PM AMBULATORY - PSYCHIATRY [facility] [place] [facility] Jul 04, 2024 11:00 AM AMBULATORY - MEDICINE [facility] [place] [facility] Jul 10, 2024 11:00 AM AMBULATORY - REHAB MEDICIN E [facility] [place] [facility] Jul 25, 2024 12:30 PM AMBULATORY - NONE [facility] [place] [facility] Jul 25, 2024 01:00 PM AMBULATORY - PSYCHIATRY [facility] [place] [facility] Lab Results: +/- 30 days of the encounter This section includes the Chemistry and Hematology Lab Results on record with [place] for the patient. Radiology Reports and Pathology Reports are provided separately, in subsequent sections. Lab Results This section contains the Chemistry/Hematology Results that were resulted 30 days before or 30 daysafter the date of the Encounter. Date/Time Source Result Type Result - Unit Interpretation Reference Range Comment Feb 16, 2024 02:28 PM [place] [facility] [place] [facility] HEPATITIS B SURFACE ANTIBODY (HBsAb)-[facility] Specimen Type: SERUM No comment entered. Ordering Provider: ALEXANDR YODER Report Released Date/Time: Feb 16, 2024 01:52 PM Reporting Lab: [place] [facility] [place] [address] [address] Performing Lab: [place] [facility] [place] [facility] [address] [facility] [address] HBsAb Non Reactive Non Reactive Feb 16, 2024 02:28 PM [place] [facility] [place] [facility] THYROID TOTAL T4 Specimen Type: SERUM No comment entered. Ordering Provider: ALEXANDR YODER Report Released Date/Time: Feb 16, 2024 02:10 PM Reporting Lab: [place] [facility] [place] [facility] [address] [facility] [address] Performing Lab: [place] [facility] [place] [facility] [address] [facility] [address] THYROID TOTAL T4 9.87 ug/dL 4.5-12.0 Feb 16, 2024 02:28 PM [place] [facility] [place] [facility] TSH Specimen Type: SERUM No comment entered. Ordering Provider: ALEXANDR YODER Report Released Date/Time: Feb 16, 2024 02:10 PM Reporting Lab: [place] [facility] [place] [facility] [address] [facility] [address] Performing Lab: [place] [facility] [place] [address] [address] TSH 0.74 u[IU]/mL 0.35-5.00 Social History: Smoking [...] took place. Date/Time Current Smoking Status Comment [facility] Apr 07, 2023 01:30 PM SD-TOBACCO QUIT 5 TO < 15 YRS [facility] [place] [facility] Tobacco Use History This section includes a history of the smoking, or tobacco-related health factors, that were collected on or before the date of the Encounter. The data comes from the [place] facility where the Encounter took place. Date/Time Smoking Status/Tobac co Use Comment Facility Apr 07, 2023 01:30 PM SD-TOBACCO QUIT 5 TO < 15 YRS SD [facility] [place] [facility] May 07, 2022 09:30 AM VA-TOBACCO FORMER USER [facility] [place] [facility] May 07, 2022 09:30 AM VA-TOBACCO QUIT 1 TO < 5 YRS [facility] [place] [facility] May 15, 2021 08:45 AM VA-TOBACCO FORMER USER [facility] [place] [facility] May 15, 2021 08:45 AM VA-TOBACCO QUIT 1 TO < 5 YRS SD [facility] [place] [facility] Jun 04, 2020 10:30 AM VA-TOBACCO FORMER USER [facility] [place] [facility] Jun 04, 2020 10:30 AM VA-TOBACCO QUIT < 1 YEAR SD [facility] [place] [facility] May 23, 2019 09:36 AM VA-TOBACCO DOESNT USE WI 30 MIN WAKEUP [place] [facility] [place] [facility] May 23, 2019 09:36 AM VA-TOBACCO USE 30 YEARS OR MORE [facility] [place] [facility] May 23, 2019 09:36 AM VA-TOBACCO USE ADVICE [facility] [place] [facility] May 23, 2019 09:36 AM VA-TOBACCO USE PILOT NO SD [facility] [place] [facility] May 23, 2019 09:36 AM VA-TOBACCO USE MED NO [facility] [place] [facility] May 23, 2019 09:36 AM VA-TOBACCO USER EVERY DAY SD [facility] [place] [facility] Apr 21, 2018 01:18 PM CURRENT SMOKER 1/2 pk a week SD [facility] [place] [facility] Apr 21, 2018 01:18 PM V1-PT DECLINES REF TO TOBACCO CESS PRGM [facility] [place] [facility] Apr 21, 2018 01:18 PM V1-PT DECLINES TOB ACCO CESSATION MEDS [place] [facility] [place] [facility] Apr 21, 2018 01:18 PM V1-PT THINKING ABO UT QUIT TOBACCO USE [facility] [place] [facility] Oct 18, 2017 02:19 PM V1-PT NOT INTEREST ED IN QUIT TOBACCO USE [facility] [place] [facility] Oct 04, 2017 01:55 PM CURRENT SMOKER .5 packs a day [facility] [place] [facility] Advance Directives: All historical and [...] Feb 13, 2003 ADVANCE DIRECTIVE KAT OVIEDO [facility] Encounter Notes: All associated encounter notes This section contains the clinical notes associated to the Encounter. Date/Time Encounter Note(s) Provider Source Jan 28, 2024 10:58 AM ADMINISTRATIVE NOTE: LOCAL TITLE: CCC: SCHEDULING ADMINISTRATION STANDARD TITLE: ADMINISTRATIVE NOTE DATE OF NOTE: JAN 28, 2024@10:58:10 ENTRY DATE: JAN 28, 2024@10:58:10 AUTHOR: TASNEEM FULLER EXP COSIGNER: URGENCY: STATUS: COMPLETED Patient Demographics Patient Name: ANDRZEJ WILKERSON Patient Primary Phone: [phone] Patient Primary Address: [address] [place] [address] Patient : 1955 Patient Age: 68 Current Location: [facility] Call Back Number: [phone] Caller/Recipient Relation to Patient: Self If Other Describe Relation to Patient: OTHER Caller Name: RHEA Scheduling Patient Expects Callback: Yes Administrative Administrative Note Reason: Medication Renewal [place] Medications Refill/Renewal Request: BITE & STING RELIEF-EPI PEN Administrative Note Comments: Shepherd called who inquires anti Itching medication for Bees sting. Vet stated, he has not sting by a bee, however, if that happened, he will be ready to treat it. Please reached out to vet [phone]. Thanks /herlinda/ TASNEEM AJ Signed: 01/28/2024 10:58 Receipt Acknowledged By: 01/31/2024 14:55 /es/ JR JOSEPH Nurse Practitioner 01/31/2024 15:10 /es/ CAMDEN NINO, MSN, RN, CNL PRIMARY CARE TEAM NURSE TASNEEM FULLER [facility]
--- OUTSIDE RECORDS SUMMARY | 2024-08-18 13:10 | XMS_ITS ---
Author Name Department of Veter[facility] ns Affairs ([place]) Organization Department of [place]a [place]) Address [address] [place] [address] Care Team Providers Care Special Librarian Name Role Phone ALEXANDR YODER Primary Care [...] Name Patient's Relationship to Policy [place] [employer] [facility] (WNR) MEDICARE ADVANTAGE HUMAN A [facility] Mar 23, 2023 [id number] [phone] Ezekiel WILKERSON PATIENT Selected Encounter This section includes the information on record at [place] for the Encounter. Date/Time Encounter Type Encounter Description Reason Pro vider Source Nov 18, 2023 12:00 AM Outpatient Encounter COMMUNITY CARE CONSULT IHE Encounter Template Text not used by MD [...] 23, 2023 02:45 PM AMBULATORY - MEDICINE [place] [facility] [place] [facility] Dec 09, 2023 01:30 PM AMBULATORY - MEDICINE [facility] [place] [facility] Dec 09, 2023 03:00 PM AMBULATORY - MEDICINE [facility] [place] [facility] Dec 17, 2023 01:00 PM AMBULATORY - PSYCHIATRY [facility] [place] [facility] Dec 17, 2023 01:30 PM AMBULATORY - PSYCHIATRY [facility] [place] [facility] January 05, 2024 11:30 AM AMBULATORY - MEDICINE [facility] [facility] January 21, 2024 01:30 PM AMBULATORY - PSYCHIATRY [facility] [place] [facility] Feb 16, 2024 01:30 PM AMBULATORY - MEDICINE [facility] [place] [facility] Feb 18, 2024 03:00 PM AMBULATORY - MEDICINE [facility] [place] [facility] Mar 03, 2024 01:30 PM AMBULATORY - PSYCHIATRY [facility] [place] [facility] Apr 06, 2024 08:30 AM AMBULATORY - MEDICINE [facility] [facility] Apr 19, 2024 02:15 PM AMBULATORY - MEDICINE MD [facility] [facility] May 05, 2024 01:30 PM AMBULATORY - PSYCHIATRY MD [facility] [facility] Social History: Smoking Status (Most [...] took place. Date/Time Current Smoking Status Comment [facility] Apr 07, 2023 01:30 PM VA-TOBACCO FORMER USER [facility] Tobacco Use History This section includes a history of the smoking, or tobacco-related health factors, that were collected on or before the date of the Encounter. The data comes from the [place] facility where the Encounter took place. Date/Time Smoking Status/Tobac co Use Comment Facility Apr 07, 2023 01:30 PM VA-TOBACCO QUIT 5 TO < 15 YRS [facility] [place] [facility] May 07, 2022 09:30 AM VA-TOBACCO FORMER USER [facility] [place] [facility] May 07, 2022 09:30 AM VA-TOBACCO QUIT 1 TO < 5 YRS [facility] [place] [facility] May 15, 2021 08:45 AM VA-TOBACCO FORMER USER [facility] [place] [facility] May 15, 2021 08:45 AM VA-TOBACCO QUIT 1 TO < 5 YRS [place] [facility] [place] [facility] Jun 04, 2020 10:30 AM VA-TOBACCO FORMER USER MD [facility] [facility] Jun 04, 2020 10:30 AM VA-TOBACCO QUIT < 1 YEAR MD [facility] [place] [facility] May 23, 2019 09:36 AM VA-TOBACCO DOESNT USE WI 30 MIN WAKEUP MD [facility] [facility] May 23, 2019 09:36 AM VA-TOBACCO USE 30 YEARS OR MORE [place] [facility] [facility] May 23, 2019 09:36 AM [facility]BACCO [facility] [place] [facility] May 23, 2019 09:36 AM VA-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 USE 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 PROFESSIONAL NO MD [facility] [place] [facility] May 23, 2019 09:36 AM VA-TOBACCO USE MED NO MD [facility] [place] [facility] May 23, 2019 09:36 AM VA-TOBACCO USER EVERY DAY MD [facility] [place] [facility] Apr 21, 2018 01:18 PM CURRENT SMOKER 1/2 pk a week MD [facility] [place] [facility] Apr 21, 2018 01:18 PM V1-PT DECLINES REF TO TOBACCO CESS PRGM [facility] [facility] Apr 21, 2018 01:18 PM V1-PT DECLINES TOB ACCO CESSATION MEDS [place] [facility] [place] [facility] Apr 21, 2018 01:18 PM V1-PT THINKING ABO UT QUIT TOBACCO USE [facility] [facility] Oct 18, 2017 02:19 PM V1-PT NOT INTEREST ED IN QUIT TOBACCO USE MD [facility] [facility] Oct 04, 2017 01:55 PM CURRENT SMOKER .5 packs a day [place] [facility] [place] [facility] Advance Directives: All historical and [...] Feb 13, 2003 ADVANCE DIRECTIVE KAT OVIEDO [facility] Encounter Notes: All associated encounter notes This section contains the clinical notes associated to the Encounter. Date/Time Encounter Note(s) Provider Source Nov 18, 2023 12:00 AM NONVA CONSULT: LOCAL TITLE: COMMUNITY CARE-CONSULT RESULT NOTE STANDARD TITLE: NONVA CONSULT DATE OF NOTE: NOV 18, 2023 ENTRY DATE: MAR 07, 2024@11:06:16 AUTHOR: BELLA MCKINNEY COSIGNER: URGENCY: STATUS: COMPLETED VistA Imaging - Scanned Document SCANNED DOCUMENT SIGNATURE NOT REQUIRED Electronically Filed: 03/07/2024 by: BELLA HARO [facility]
--- OUTSIDE RECORDS SUMMARY | 2024-08-18 13:10 | XMS_ITS ---
Author Name Department of Vetera ns Affairs (MD) Organization Department of Vetera Affairs ([place]) Address [address] [place] [address] Care Team Providers Care Carpet Installer Name Role Phone ALEXANDR YODER Primary [...] Name Patient's Relationship to Policy [place] [employer] [facility] (WNR) MEDICARE ADVANTAGE HUMAN A [facility] Mar 23, 2023 [id number] [phone] Ezekiel WILKERSON PATIENT Selected Encounter This section includes the information on record at MD for the Encounter. Date/Time Encounter Type Encounter Description Reason Provider Source Mar 03, 2024 01:30 PM MTMS BY LIZZ NATHAN [facility] - IND ICD-10-CM F41.9 Anxiety disorder, unspecified RAGUINDIN,JASP ER YOAN D E Encounter Template Text not used by MD Assessments - Encounter Diagnoses This section includes the primary and secondary diagnoses documented for the Encounter. Date/Time Primary/Secondary Diagnosis Diagnosis Name Provider Source Mar 03, 2024 02:18 PM PRIMARY Anxiety disorder, unspecified RAGUINDIN,JASP ER YOAN D [facility] [place] [facility] Mar 03, 2024 02:18 PM SECONDARY Depression, unspecified RAGUINDIN,JASP ER YOAN D [facility] [place] [facility] Plan of Treatment: Future Appointments (+ 6 months) and Future Tests (+/- 45 days) The Plan of Treatment section includes future care [facility] the [facility] This section includes future appointments and [...] - MEDICINE [facility] [place] [facility] Apr 19, 2024 02:15 PM AMBULATORY - MEDICINE [facility] [place] [facility] May 05, 2024 01:30 PM AMBULATORY - PSYCHIATRY [facility] [place] [facility] Jun 13, 2024 09:30 AM AMBULATORY - MEDICINE [facility] [place] [facility] Jun 19, 2024 02:00 PM AMBULATORY - MEDICINE [facility] [place] [facility] Jun 21, 2024 01:30 PM AMBULATORY - PSYCHIATRY [facility] [place] [place] [facility] Jun 28, 2024 02:30 PM AMBULATORY - PSYCHIATRY [facility] [place] [facility] Jul 04, 2024 11:00 AM AMBULATORY - MEDICINE [facility] [place] [facility] Jul 10, 2024 11:00 AM AMBULATORY - REHAB MEDICIN E [facility] [place] [facility] Jul 25, 2024 12:30 PM AMBULATORY - NONE [facility] [place] [facility] Jul 25, 2024 01:00 PM AMBULATORY - PSYCHIATRY [facility] [place] [facility] Jul 31, 2024 01:00 PM AMBULATORY - REHAB MEDICIN E [facility] [place] [facility] Jul 31, 2024 02:00 PM AMBULATORY - MEDICINE [facility] [place] [facility] Aug 08, 2024 08:30 AM AMBULATORY - MEDICINE [facility] [place] [facility] Aug 08, 2024 09:30 AM AMBULATORY - NONE [facility] [place] [facility] Aug 21, 2024 02:30 PM AMBULATORY - REHAB MEDICIN E [facility] [place] [facility] Aug 22, 2024 10:00 AM AMBULATORY - MEDICINE [facility] [place] [facility] Aug 29, 2024 11:00 AM AMBULATORY - PSYCHIATRY [facility] [place] [facility] Aug 29, 2024 11:30 AM [facility] Lab Results: +/- 30 days of the encounter This section includes the Chemistry and Hematology Lab Results on record with [facility] for the patient. Radiology Reports and Pathology Reports are provided separately, in subsequent sections. Lab Results This section contains the Chemistry/Hematology Results that were resulted 30 days before or 30 daysafter the date of the Encounter. Date/Time Source Result Type Result - Unit Interpretation Reference Range Comment Feb 16, 2024 02:28 PM [facility] [facility] HEPATITIS B SURFACE ANTIBODY (HBsAb)-WH Specimen Type: SERUM No comment entered. Ordering Provider: ALEXANDR YODER Report Released Date/Time: Feb 16, 2024 01:52 PM Reporting Lab: [facility] [facility] [address] [address] Performing Lab: [facility] [place] [facility] [address] [facility] [address] HBsAb Non Reactive Non Reactive Feb 16, 2024 02:28 PM [facility] THYROID TOTAL T4 Specimen Type: SERUM No comment entered. Ordering Provider: ALEXANDR YODER Report Released Date/Time: Feb 16, 2024 02:10 PM Reporting Lab: [facility] [place] [facility] [address] [address] Performing Lab: MD [facility] [place] [facility] [address] [facility] [address] THYROID TOTAL T4 9.87 ug/dL 4.5-12.0 Feb 16, 2024 02:28 PM [facility] TSH Specimen Type: SERUM No comment entered. Ordering Provider: ALEXANDR YODER Report Released Date/Time: Feb 16, 2024 02:10 PM Reporting Lab: [facility] [place] [facility] [address] [address] Performing Lab: [facility] [place] [facility] [address] [address] TSH 0.74 u[IU]/mL 0.35-5.00 Social History: Smoking [...] 2023 01:30 PM VA-TOBACCO FORMER USER [place] [facility] [facility] Tobacco Use History This section includes a history of the smoking, or tobacco-related health factors, that were collected on or before the date of the Encounter. The data comes from the MD facility where the Encounter took place. Date/Time Smoking Status/Tobac co Use Comment Facility Apr 07, 2023 01:30 PM VA-TOBACCO QUIT 5 TO < 15 YRS [facility] [facility] May 07, 2022 09:30 AM VA-TOBACCO FORMER USER [facility] [place] [facility] May 07, 2022 09:30 AM VA-TOBACCO QUIT 1 TO < 5 YRS [facility] [place] [facility] May 15, 2021 08:45 AM VA-TOBACCO FORMER USER [facility] [place] [facility] May 15, 2021 08:45 AM VA-TOBACCO QUIT 1 TO < 5 YRS [facility] [place] [facility] Jun 04, 2020 10:30 AM VA-TOBACCO FORMER USER [facility] [place] [facility] Jun 04, 2020 10:30 AM VA-TOBACCO QUIT < 1 YEAR MD [facility] [place] [facility] May 23, 2019 09:36 AM VA-TOBACCO DOESNT USE WI 30 MIN WAKEUP MD [facility] [place] [facility] May 23, 2019 09:36 AM VA-TOBACCO USE 30 YEARS OR MORE [facility] [place] [facility] May 23, 2019 09:36 AM VA-TOBACCO USE ADVICE [facility] [place] [facility] May 23, 2019 09:36 AM VA-TOBACCO USE 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 NO [facility] May 23, 2019 09:36 AM VA-TOBACCO USE MED NO [facility] May 23, 2019 09:36 AM VA-TOBACCO USER EVERY DAY [facility] Apr 21, 2018 01:18 PM CURRENT SMOKER 1/2 pk a week [facility] Apr 21, 2018 01:18 PM V1-PT DECLINES REF TO TOBACCO CESS PRGM [facility] Apr 21, 2018 01:18 PM V1-PT DECLINES TOB ACCO CESSATION MEDS [facility] Apr 21, 2018 01:18 PM V1-PT THINKING ABO UT QUIT TOBACCO USE [facility] Oct 18, 2017 02:19 PM V1-PT NOT INTEREST ED IN QUIT TOBACCO USE [facility] Oct 04, 2017 01:55 PM CURRENT SMOKER .5 packs a day [facility] Advance Directives: All historical and current [...] 13, 2003 ADVANCE DIRECTIVE KAT OVIEDO [facility] Encounter Notes: All associated encounter notes This section contains the clinical notes associated to the Encounter. Date/Time Encounter Note(s) Provider Source Mar 03, 2024 01:13 PM PHARMACY MEDICATION MGT NOTE: LOCAL TITLE: CLINICAL PHARMACIST F/U NOTE STANDARD TITLE: PHARMACY MEDICATION MGT NOTE DATE OF NOTE: MAR 03, 2024@13:13 ENTRY DATE: MAR 03, 2024@13:14:04 AUTHOR: OLMAN AGUILAR COSIGNER: URGENCY: STATUS: COMPLETED Program: Clinical Pharmacy Provider/Medication Management Speciality: Mental Health ATTENDED BY: [X] Patient [ ] Spouse/Caregiver LENGTH OF SESSION: 30minutes -=-=-=-=-=-=-=-=-=-=-=-=-=-=- =-=-=-=-=-==-=-=-=-=-=-=-=-=- =-=-=-=-=-=-=-=-=-=-=- Name: ANDRZEJ WILKERSON : Mar ID: 68yo WHITE MALE -=-=-=-=-=-=-=-=-=-=-=-=-=-=- =-=-=-=-=-==-=-=-=-=-=-=-=-=- =-=-=-=-=-=Subjective- [place] was last seen on [id number] with the following pharmacotherapeutic plan: [X] No changes [ ] Discontinue: [ ] Initiate: [ ] Change the following: Treating Dx(s): Depression and Anxiety INTERIM HISTORY pt reports I'm not doing too good. reports multiple medical conditions of concern, including twisted small intested causing stomach pain for >1mo now; he is wearing a heart monitor as recent findings suggects concern for his heart vs COPD; and his thyroid eye. support provided. stated sometimes, I just want to explode and expressed that he cried the other day. he also expressed some fear regarding his medical conditions. states I tell myself that things are going to get better...but then I ask my self, when? he has been trying to do some activities to enjoy his time, like fishing, but overall activity has reduced d/t medical conditions. support provide. discussed that medication adjustments may not be effective at this time given that the pt had identified that his medical health is likely the main contributor to his depression recently and needs to be address further, which he agreed. expressed that prior to December, states I was making headway...I was outside fishing, I was cooking more. noted that his nightmares have stopped on their own, and thus he had stopped taking prazosin as well. noted his sleep had been disturbed lately. he tried taking trazodone and experienced an errection, which resolved after he used the bathroom. discussed plan to to trial taking his allergy medication at night as it may help him sleep. advised the pt to reach out to clinic should he feel the need to speak someone for support. he is awaiting the return of his previous therapist. -=-=-=-=-=-=-=-=-=-=-=-=-=-=- =-=-=-=-=-==-=-=-=-=-=-=-=-=- =-=-=-=-=-=-Objective- Mental Status Exam Appearance: [X] Unremarkable [X] Appropriate to season [ ] Neatly groomed [ ] Somewhat disheveled [ ] Other: Behavior Mood/Affect: [ ] Appropriate [ ] Irritable [ ] Normal [ ] Euphoric [ ] Pleasant [ ] Provocative [ ] Bright [X] Depressed [X] Anxious [ ] Frustrated [ ] Anxious [...] 6. Supraventricular tachycardia 7. HTN - Hypertension ([facility] [id number]) 8. Anxiety disorder 9. H/O: gastric ulcer [...] FOR WHEEZING OR SHORTNESS OF BREATH 3) AMLODIPINE BESYLATE 10MG TAB TAKE ONE TABLET BY MOUTH ACTIVE ONCE DAILY FOR BLOOD PRESSURE/HEART, DO NOT TAKE WITH GRAPEFRUIT JUICE NOTE NEW TABLET STRENGTH/INCREASED DOSE 4) BACITRACIN/NEOMYCIN/POLYMYXIN TOP OINT APPLY ACTIVE SUFFICIENT AMOUNT TOPICALLY TWICE DAILY 5) BUSPIRONE HCL 10MG TAB TAKE TWO TABLETS BY MOUTH ACTIVE TWICE DAILY 6) CETIRIZINE HCL 10MG TAB TAKE ONE TABLET BY MOUTH ONCE ACTIVE DAILY FOR ALLERGIES 7) EPINEPHRINE (EQV-EPI-PEN) 0.3MG/0.3ML INJECT ACTIVE DIRECTED INTRAMUSCULARLY ONE TIME 8) ESCITALOPRAM OXALATE 20MG TAB TAKE ONE TABLET BY ACTIVE MOUTH ONCE DAILY FOR MOOD/DEPRESSION 9) FAMOTIDINE 20MG TAB TAKE ONE TABLET BY MOUTH AT ACTIVE BEDTIME FOR STOMACH ACID 10) FLUTICAS 250/SALMETEROL 50 INHL DISK 60 INHALE 1 PUFF ACTIVE BY MOUTH EVERY 12 HOURS - RINSE MOUTH AFTER USE 11) LEVOTHYROXINE NA (SYNTHROID) 150MCG TAB TAKE ONE ACTIVE TABLET BY MOUTH EVERY MORNING 30 MINUTES BEFORE BREAKFAST FOR THYROID - TAKE ON AN EMPTY STOMACH WITH A FULL GLASS OF WATER 12) OMEPRAZOLE 20MG EC CAP TAKE ONE CAPSULE BY MOUTH ACTIVE EVERY MORNING 30 MINUTES BEFORE BREAKFAST 13) PRAZOSIN HCL 1MG CAP TAKE ONE CAPSULE BY MOUTH AT ACTIVE BEDTIME Active Non-VA Medications Status 1) Non-VA OTHER CAP/TAB BY MOUTH ACTIVE 14 Total Medications Past psychiatric medications include the following: [X] Per CPR[facility]: - buspirone (2022-current) - citalopram (2824-8479) - escitalopram (2022-current) - sertraline (2020) - trazodone (5070-8942) [ ] Per Patient: Vitals: Ht: 65 in [165.1 cm] (07/26/2023 14:01) Wt: 262 lb [118.84 kg] (02/16/2024 13:43) BMI: 43.7 BP: 137/86 (02/16/2024 13:43) HR: 82 (02/16/2024 13:43) Labs: CHEM 7 TREND LAB CUMULATIVE SELECTED [...] following review of all active psychotropic and PAINT PREPARER-active agents is to ensure pharmacotherapy is evaluated for safety and efficacy as they relate to behaviorial and physiological changes and outcomes Depression w/ possible seasonal component - escitalopram 20mg daily - buspirone 20mg bid - prazosin 1mg hs for nightmares > will d/c d/t nonutilization * depression & anxiety currently secondary to medical conditions; will defer medication adjustments at this time PLAN 1. Pharmacotherapy [ ] No changes [X] Discontinue: prazosin [ ] Initiate: [ ] Change the [...] Reduction [ ] Other: RTC Interval: every 6-8weeks Next Apt: [id number] [place] was provided proposal manager writer's contact information and instructed to contact proposal manager writer as needed for any changes to scheduling or concerns otherwise. [place] is aware of actions to take if they feel unsafe, including calling the [place] Crisis Line (#150); calling 911; or going to the nearest urgent care or emergency room. The is also aware of how to contact the clinic should the require additional services prior to the next appointment. Time spent on chart review, session, and documentation: 30minutes /herlinda/ Olman Aguilar PharmD Clinical Pharmacist Practitioner Signed: 03/03/2024 14:20 [facility]AR [facility]
--- OUTSIDE RECORDS SUMMARY | 2024-08-18 13:10 | XMS_ITS | Encounter Summary ---
Author Name Department of Vetera Affairs [place] Organization [place] of [place] Address [address] [place] [address] Care Team Providers Care Explosive Ordnance Handler Name Role Phone ALEXANDR YODER Primary Care [...] [place] (WNR) MEDICARE ADVANTAGE HUMAN [facility] Mar 23, 2023 [id number] [phone] Ezekiel WILKERSON PATIENT Selected Encounter This section includes the information on record at [place] for the Encounter. Date/Time Encounter Type Encounter Description Reason Provider Source Feb 18, 2024 03:00 PM TRIM NAIL(S) PODIATRY ICD-10-CM L60.3 Nail dystrophy JAMAR LATHAM [place] Encounter Template Text not used by [place] Assessments - Encounter Diagnoses This section includes the primary and secondary diagnoses documented for the Encounter. Date/Time Primary/Secondary Diagnosis Diagnosis Name Provider Source Feb 18, 2024 03:00 PM PRIMARY Nail dystrophy [facility]AR LATHAM [facility] Plan of Treatment: Future Appointments (+ 6 months) and Future Tests (+/- 45 days) The Plan of Treatment section includes future care activities for the patient from all [place] treatmentfacilities. This section includes future appointments and future orders which are active, pending or scheduled. Future Appointments This section includes appointments that were scheduled to occur 6 months from the date of the Encounter, up to a maximum of 20 appointments. The data comes from all [place] treatment facilities. Appointment Date/Time Appointment Type Appointme nt Facility Name Mar 03, 2024 01:30 PM AMBULATORY - PSYCHIATRY [facility] [place] [facility] Apr 06, 2024 08:30 AM AMBULATORY - MEDICINE [facility] [place] [facility] Apr 19, 2024 02:15 PM AMBULATORY - MEDICINE [facility] [place] [facility] May 05, 2024 01:30 PM AMBULATORY - PSYCHIATRY [facility] [place] [facility] Jun 13, 2024 09:30 AM AMBULATORY - MEDICINE [facility] [place] [facility] Jun 19, 2024 02:00 PM AMBULATORY - MEDICINE [facility] [place] [facility] Jun 21, 2024 01:30 PM AMBULATORY - PSYCHIATRY [facility] [place] [facility] Jun 28, 2024 02:30 PM AMBULATORY - PSYCHIATRY [facility] [place] [facility] Jul 04, 2024 11:00 AM AMBULATORY - MEDICINE [facility] [place] [facility] Jul 10, 2024 11:00 AM AMBULATORY - REHAB MEDICIN E [facility] [place] [facility] Jul 25, 2024 12:30 PM AMBULATORY - NONE [facility] [place] [facility] Jul 25, 2024 01:00 PM AMBULATORY - PSYCHIATRY [facility] [place] [facility] Jul 31, 2024 01:00 PM AMBULATORY - REHAB MEDICIN E [facility] [place] [facility] Jul 31, 2024 02:00 PM AMBULATORY - MEDICINE [facility] [place] [facility] Aug 08, 2024 08:30 AM AMBULATORY - MEDICINE [facility] [place] [facility] Aug 08, 2024 09:30 AM AMBULATORY - NONE [facility] [place] [facility] Lab Results: +/- 30 days of [...] Range Comment Feb 16, 2024 02:28 PM [facility] HEPATITIS B SURFACE ANTIBODY (HBsAb)-[facility] Specimen Type: SERUM No comment entered. Ordering Provider: ALEXANDR YODER Report Released Date/Time: Feb 16, 2024 01:52 PM Reporting Lab: [facility] [address] [address] Performing Lab: [facility] [address] [address] HBsAb Non Reactive Non Reactive Feb 16, 2024 02:28 PM [facility] THYROID TOTAL T4 Specimen Type: SERUM No comment entered. Ordering Provider: ALEXANDR YODER Report Released Date/Time: Feb 16, 2024 02:10 PM Reporting Lab: [facility] [address] [address] Performing Lab: [facility] [address] [address] THYROID TOTAL T4 9.87 ug/dL 4.5-12.0 Feb 16, 2024 02:28 PM [facility] TSH Specimen Type: SERUM No comment entered. Ordering Provider: ALEXANDR YODER Report Released Date/Time: Feb 16, 2024 02:10 PM Reporting Lab: [facility] [address] [address] Performing Lab: [facility] [address] [address] TSH 0.74 u[IU]/mL 0.35-5.00 Social History: Smoking Status (Most current) and Tobacco Use (All prior to encounter date) This section includes the most current, and the historical, smoking and tobacco- related health factors from the [place] facility where the Encounter took place. Current Smoking Status This section includes the most current smoking, or tobacco-related health factor, from the [place] facility where the Encounter took place. Date/Time Current Smoking Status Comment Artem shukla Apr 07, 2023 01:30 PM VA-TOBACCO FORMER USER [place] [facility] [place] [facility] Tobacco Use History This section includes a history of the smoking, or tobacco-related health factors, that were collected on or before the date of the Encounter. The data comes from the [facility] where the Encounter took place. Date/Time Smoking Status/Tobac co Use Comment Facility Apr 07, 2023 01:30 PM VA-TOBACCO QUIT 5 TO < 15 YRS [facility] [place] [facility] May 07, 2022 09:30 AM VA-TOBACCO FORMER USER [facility] [place] [facility] May 07, 2022 09:30 AM VA-TOBACCO QUIT 1 TO < 5 YRS [facility] [place] [facility] May 15, 2021 08:45 AM VA-TOBACCO FORMER USER [facility] [place] [facility] May 15, 2021 08:45 AM VA-TOBACCO QUIT 1 TO < 5 YRS [facility] [place] [facility] Jun 04, 2020 10:30 AM VA-TOBACCO FORMER USER [facility] [place] [facility] Jun 04, 2020 10:30 AM VA-TOBACCO QUIT < 1 YEAR [facility] [place] [facility] May 23, 2019 09:36 AM VA-TOBACCO DOESNT USE WI 30 MIN WAKEUP [facility] [place] [facility] May 23, 2019 09:36 AM VA-TOBACCO USE 30 YEARS OR MORE [facility] [place] [facility] May 23, 2019 09:36 AM VA-TOBACCO USE ADVICE [facility] [place] [facility] May 23, 2019 09:36 AM VA-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 END NO [facility] [place] [facility] May 23, 2019 09:36 AM VA-TOBACCO USE MED NO [facility] [place] [facility] May 23, 2019 09:36 AM VA-TOBACCO USER EVERY DAY [facility] [place] [facility] Apr 21, 2018 01:18 PM CURRENT SMOKER 1/2 pk a week [facility] [place] [facility] Apr 21, 2018 01:18 PM V1-PT DECLINES REF TO TOBACCO CESS PRGM [facility] [place] [facility] Apr 21, 2018 01:18 PM V1-PT DECLINES TOB ACCO CESSATION MEDS [facility] Apr 21, 2018 01:18 PM V1-PT THINKING ABO UT QUIT TOBACCO USE [facility] Oct 18, 2017 02:19 PM V1-PT NOT INTEREST ED IN QUIT TOBACCO USE [facility] Oct 04, 2017 01:55 PM CURRENT SMOKER .5 packs a day [facility] Advance Directives: All historical and current Section Date Range: From patient's date of to the date document was created. This section includes ALL of a patient's completed or amended [place] Advance and Rescinded Directives. The entries below indicate that a directive exists for the patient, but an actual copy is not included with this document. The data comes from all [place] facilities. Date Advance Directives Provider Source Feb 13, 2003 ADVANCE DIRECTIVE KAT OVIEDO [facility] Encounter Notes: All associated encounter notes This section contains the clinical notes associated to the Encounter. Date/Time Encounter Note(s) Provider Source Feb 18, 2024 02:57 PM NURSING OUTPATIENT NOTE: LOCAL TITLE: NURSING/SPECIALTY CLINIC NOTE STANDARD TITLE: NURSING OUTPATIENT NOTE DATE OF NOTE: FEB 18, 2024@14:57 ENTRY DATE: FEB 18, 2024@14:57:54 AUTHOR: JAMAR LATHAM COSIGNER: URGENCY: STATUS: COMPLETED seen in [facility] for continued foot care. has a history of Mycotic nails and is unable to trim his/her own nails. Ambulates: [X]self [ ]wheelchair can transfer [ ]wheelchair cannot transfer [x ]without assistance [ ]with assistance of Bilateral: Pedal pulses: Right Foot: Dorsalis Pedis - palpable [x ] non-palpable[ ] Posterior Tibial - palpable[x ] non-palpable[ ] Left Foot: Dorsalis Pedis - palpable [x ] non-palpable [ ] Posterior Tibial - palpable [x ] non-palpable[ ] Pedal sensation: Right Foot: [x ] Intact [ ] Absent out of 10 sites Left Foot: [x ] Intact [ ] Absent out of 10 sites Skin Temperature: [x ] Warm to warm, proximal to distal [ ] Warm to cool/cold, proximal to distal Pedal skin: [ x] Intact [ x] Dry [ ] Cracked [ ] Discolored Webspaces: [x ] Intact [x ] Clean [ ] Soiled [ ] Macerated [x ] Dry Nails: [x ] Thickened [x ] Elongated [x ] Dystrophic [ ] Discolored [ ] Fungal [ ] Incurvated [ ] Subungual debri Hyperkeratosis [ ] Yes, Locations: [x ] No Open lesions/wounds: [ ] Yes, Locations: [x ] No Amputations: [ ] Yes, Locations: [x ] No Edema present: (x ) Yes Trace edema bilatersal ankles and feet ( ) NO Podiatric Problem List: [ ] Diabetes mellitus [ ] Peripheral vascular disease [ ] Neuropathy [ ] Onychomycosis [x ] Dystrophic toenails [ ] Hyperkeratosis/calluses [x ] Xerosis/dry skin [ ] Other: Treatment: [x ] Nails x 10 debrided in length and thickness without incident [ ] Hyperkeratotic lesions were grinded down with eletric instrument lens grinder apprentice and debrided without incidence. [x ]Patient education educated about proper foot care and encouraged to check feet daily for injuries and wounds [x ] Instructed to moisturize feet daily but not in-between toes Patient is to RTC in 4 months. /herlinda/ JAMAR LATHAM LPN LICENSED PRACTICAL NURSE Signed: 02/18/2024 15:01 Receipt Acknowledged By: 02/18/2024 15:23 /herlinda/ YOSELIN FAROOQ DPM PODIATRY ATTENDING JAMAR LATHAM [facility]
--- OUTSIDE RECORDS SUMMARY | 2024-08-18 13:10 | XMS_ITS ---
Author Name [facility] [place] Organization [facility] [place] Address [address] [place] [address] Care Team Providers Care Fermentation Engineer Name Role Phone ALEXANDR YODER Primary Care [...] Relationship to Policy [place] [employer] [facility] (WNR) MEDICARE ADVANTAGE HUMAN A INSUR ANCE [facility] Mar 23, 2023 [id number] [phone] Ezekiel WILKERSON PATIENT Selected Encounter This section includes the information on record at [place] for the Encounter. Date/Time Encounter Type Encounter Description Reason Provider Source January 21, 2024 01:30 PM MTMS BY LIZZ NATHAN [facility] - IND ICD-10-CM F32.A Depression, unspecified RAGUINDIN,JASP ER YOAN D E Encounter Template Text not used by [place] Assessments - Encounter Diagnoses This section includes the primary and secondary diagnoses documented for the Encounter. Date/Time Primary/Secondary Diagnosis Diagnosis Name Provider Source Jan 25, 2024 07:13 AM PRIMARY Depression, unspecified RAGUINDIN,JASP ER YOAN D [place] [facility] [place] [facility] Jan 25, 2024 07:13 AM SECONDARY Anxiety disorder, unspecified RAGUINDIN,JASP ER YOAN D [place] [facility] [place] [facility] Plan of Treatment: Future Appointments (+ 6 months) and Future Tests (+/- 45 days) The Plan of Treatment section includes future care activities for the patient from all [place] [facility]. This section includes future appointments and future [...] - MEDICINE [place] [facility] [place] [facility] Feb 18, 2024 03:00 PM AMBULATORY - MEDICINE [place] [facility] [place] [facility] Mar 03, 2024 01:30 PM AMBULATORY - PSYCHIATRY [place] [facility] [place] [facility] Apr 06, 2024 08:30 AM AMBULATORY - MEDICINE [place] [facility] [place] [facility] Apr 19, 2024 02:15 PM AMBULATORY - MEDICINE [place] [facility] [place] [facility] May 05, 2024 01:30 PM AMBULATORY - PSYCHIATRY [place] [facility] [place] [facility] Jun 13, 2024 09:30 AM AMBULATORY - MEDICINE [place] [facility] [place] [facility] Jun 19, 2024 02:00 PM AMBULATORY - MEDICINE [place] [facility] [place] [facility] Jun 21, 2024 01:30 PM AMBULATORY - PSYCHIATRY [place] [facility] [place] [facility] Jun 28, 2024 02:30 PM AMBULATORY - PSYCHIATRY [place] [facility] [place] [facility] Jul 04, 2024 11:00 AM AMBULATORY - MEDICINE [place] [facility] [place] [facility] Jul 10, 2024 11:00 AM AMBULATORY - REHAB MEDICIN E [place] [facility] [place] [facility] Lab Results: +/- 30 days of the encounter This section includes the Chemistry and Hematology Lab Results on record with [place] for the patient. Radiology Reports and Pathology Reports are provided separately, in subsequent sections. Lab Results This section contains the Chemistry/Hematology Results that were resulted 30 days before or 30 daysafter the date of the Encounter. Date/Time Source Result Type Result - Unit Interpretation Reference Range Comment Feb 16, 2024 02:28 PM [facility] HEPATITIS B SURFACE ANTIBODY (HBsAb)-WH Specimen Type: SERUM No comment entered. Ordering Provider: ALEXANDR YODER Report Released Date/Time: Feb 16, 2024 01:52 PM Reporting Lab: [facility] [address] [facility] [address] Performing Lab: [facility] [address] [facility] [address] HBsAb Non Reactive Non Reactive Feb 16, 2024 02:28 PM [facility] THYROID TOTAL T4 Specimen Type: SERUM No comment entered. Ordering Provider: ALEXANDR YODER Report Released Date/Time: Feb 16, 2024 02:10 PM Reporting Lab: [facility] [address] [facility] [address] Performing Lab: [facility] [address] [facility] [address] THYROID TOTAL T4 9.87 ug/dL 4.5-12.0 Feb 16, 2024 02:28 PM [facility] TSH Specimen Type: SERUM No comment entered. Ordering Provider: ALEXANDR YODER Report Released Date/Time: Feb 16, 2024 02:10 PM Reporting Lab: [address] [address] Performing Lab: [address] [address] TSH 0.74 u[IU]/mL 0.35-5.00 Social History: Smoking [...] 07, 2023 01:30 PM VA-TOBACCO FORMER USER [facility] Tobacco Use History This section includes a history of the smoking, or tobacco-related health factors, that were collected on or before the date of the Encounter. The data comes from the [facility] where the Encounter took place. Date/Time Smoking Status/Tobac co Use Comment Facility Apr 07, 2023 01:30 PM VA-TOBACCO QUIT 5 TO < 15 YRS [place] [facility] [place] [facility] May 07, 2022 09:30 AM VA-TOBACCO FORMER USER [facility] [place] [facility] May 07, 2022 09:30 AM VA-TOBACCO QUIT 1 TO < 5 YRS [place] [facility] [place] [facility] May 15, 2021 08:45 AM VA-TOBACCO FORMER USER [place] [facility] [place] [facility] May 15, 2021 08:45 AM VA-TOBACCO QUIT 1 TO < 5 YRS [place] [facility] [place] [facility] Jun 04, 2020 10:30 AM VA-TOBACCO FORMER USER [place] [facility] [place] [facility] Jun 04, 2020 10:30 AM VA-TOBACCO QUIT < 1 YEAR [place] [facility] [place] [facility] May 23, 2019 09:36 AM VA-TOBACCO DOESNT USE WI 30 MIN WAKEUP [place] [facility] [place] [facility] May 23, 2019 09:36 AM VA-TOBACCO USE 30 YEARS OR MORE [place] [facility] [place] [facility] May 23, 2019 09:36 AM VA-TOBACCO USE ADVICE [place] [facility] [place] [facility] May 23, 2019 09:36 AM VA-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 NO [place] [facility] [place] [facility] May 23, 2019 09:36 AM VA-TOBACCO USE MED NO [place] [facility] [place] [facility] May 23, 2019 09:36 AM VA-TOBACCO USER EVERY DAY [place] [facility] [place] [facility] Apr 21, 2018 01:18 PM CURRENT SMOKER 1/2 pk a week [place] [facility] [place] [facility] Apr 21, 2018 01:18 PM V1-PT DECLINES REF TO TOBACCO CESS PRGM [place] [facility] [place] [facility] Apr 21, 2018 01:18 PM V1-PT DECLINES TOB ACCO CESSATION MEDS [place] [facility] [place] [facility] Apr 21, 2018 01:18 PM V1-PT THINKING ABO UT QUIT TOBACCO USE [facility] [place] [facility] Oct 18, 2017 02:19 PM V1-PT NOT [...] Feb 13, 2003 ADVANCE DIRECTIVE KAT OVIEDO COUNT INCLUDES THE [facility] Encounter Notes: All associated encounter notes This section contains the clinical notes associated to the Encounter. Date/Time Encounter Note(s) Provider Source January 21, 2024 01:34 PM PHARMACY MEDICATION MGT NOTE: LOCAL TITLE: CLINICAL PHARMACIST F/U NOTE STANDARD TITLE: PHARMACY MEDICATION MGT NOTE DATE OF NOTE: JANUARY 21, 2024@13:34 ENTRY DATE: JANUARY 21, 2024@13:34:12 AUTHOR: OLMAN AGUILAR COSIGNER: URGENCY: STATUS: COMPLETED Program: Clinical Pharmacy Provider/Medication Management Speciality: Mental Health ATTENDED BY: [X] Patient [ ] Spouse/Caregiver LENGTH OF SESSION: 30minutes -=-=-=-=-=-=-=-=-=-=-=-=-=-=- =-=-=-=-=-==-=-=-=-=-=-=-=-=- =-=-=-=-=-=-=-=-=-=-=- Name: ANDRZEJ WILKERSON : Mar ID: 68yo WHITE MALE -=-=-=-=-=-=-=-=-=-=-=-=-=-=- =-=-=-=-=-==-=-=-=-=-=-=-=-=- =-=-=-=-=-=Subjective- was last seen on [id number] with the following pharmacotherapeutic plan: [ ] No changes [ ] Discontinue: [X] Initiate: prazosin 1mg qhs [ ] Change the following: Treating Dx(s): Depression and Anxiety INTERIM HISTORY pt reports to be feeling physically unwell. explains that he had a difficulty 24hrs d/t a stomach ache. did go the ED recently for tx, and is otherwise improving but has limited intake as a result. noted that since the last visit w/ this automobile and property underwriter, he was initally socializing more and being more active outside, including fishing multiple times a week; however, his mood had shifted again around the time of Memorial day. states when the holidays come around, I don't want to be around anybody. pt hopes to explore why he becomes this way around the holidays once his therapist returns. reports improvement in nightmare w/ the addition of prazosin. requests f/u after February 23 to make determination in whether his mood worsens around the time of all holidays, which this automobile and property underwriter agreed. -=-=-=-=-=-=-=-=-=-=-=-=-=-=- =-=-=-=-=-==-=-=-=-=-=-=-=-=- =-=-=-=-=-=-Objective- Mental Status Exam Appearance: [...] Supraventricular tachycardia 7. HTN - Hypertension (SCT [id number]) 8. Anxiety disorder 9. H/O: gastric ulcer [...] JUICE NOTE NEW TABLET STRENGTH/INCREASED DOSE 5) BUSPIRONE HCL 10MG TAB TAKE TWO TABLETS BY MOUTH ACTIVE TWICE DAILY 6) ESCITALOPRAM OXALATE 20MG TAB TAKE ONE TABLET BY ACTIVE MOUTH ONCE DAILY FOR MOOD/DEPRESSION 7) FLUTICAS 250/SALMETEROL 50 INHL DISK 60 INHALE 1 PUFF ACTIVE BY MOUTH EVERY 12 HOURS - RINSE MOUTH AFTER USE 8) OMEPRAZOLE 20MG EC CAP TAKE ONE CAPSULE BY MOUTH ACTIVE EVERY MORNING 30 MINUTES BEFORE BREAKFAST 9) PRAZOSIN HCL 1MG CAP TAKE ONE CAPSULE BY MOUTH AT ACTIVE BEDTIME Active Non-VA Medications Status 1) Non-VA OTHER CAP/TAB BY MOUTH ACTIVE 10 Total Medications Past psychiatric medications include the following: [X] Per CPRS: - buspirone (2022-current) - citalopram () - escitalopram (2022-current) - sertraline (2020) - trazodone ([id number]) [ ] Per Patient: Vitals: Ht: 65 in [165.1 cm] (07/26/2023 14:01) Wt: 261 lb [118.39 kg] (01/05/2024 11:19) BMI: 43.5 BP: 126/83 (01/05/2024 11:19) HR: 78 (01/05/2024 11:19) Labs: CHEM 7 TREND LAB CUMULATIVE SELECTED [...] following review of all active psychotropic and PLATFORM SUPERVISOR-active agents is to ensure pharmacotherapy is evaluated for safety and efficacy as they relate to behaviorial and physiological changes and outcomes Pt is stable on the following regimen and requires no changes at this time Depression w/ possible seasonal component - escitalopram 20mg daily - buspirone 20mg bid - prazosin 1mg hs for nightmares PLAN 1. Pharmacotherapy [X] No changes [ [...] Other: RTC Interval: every 4-6weeks Next Apt: [id number] was provided automobile and property underwriter's contact information and instructed to contact automobile and property underwriter as needed for any changes to scheduling or concerns otherwise. is aware of actions to take if they feel unsafe, including calling the [facility] (#000); calling 911; or going to the nearest urgent care or emergency room. The is also aware of how to contact the clinic should the require additional services prior to the next appointment. Time spent on chart review, session, and documentation: 30minutes /herlinda/ Olman Aguilar PharmD Clinical Pharmacist Practitioner Signed: 01/27/2024 13:18 OLMAN AGUILAR [place] [facility]
--- OUTSIDE RECORDS SUMMARY | 2024-08-18 13:10 | XMS_ITS ---
Author Name [facility] [place] Address [address] [place] [address] Care Team Providers Care Spindle Sander Name Role Phone ALEXANDR YODER Primary Care [...] Name Patient's Relationship to Policy [place] [employer] [facility] (WNR) MEDICARE ADVANTAGE HUMAN A INSUR ANCE [facility] Mar 23, 2023 [id number] [phone] Ezekiel WILKERSON PATIENT Selected Encounter This section includes the information on record at [place] for the Encounter. Date/Time Encounter Type Encounter Description Reason Pro vider Source Feb 14, 2024 04:08 PM Outpatient Encounter COMMUNITY CARE CONSULT I[facility] Encounter Template Text not used by [place] Plan of Treatment: Future Appointments (+ 6 months) and Future Tests (+/- 45 days) The Plan of Treatment section includes future care activities for the patient from all [place] treatmentfacilities. This section includes future appointments and future orders which are active, pending or scheduled. Future Appointments This section includes appointments that were scheduled to occur 6 months from the date of the Encounter, up to a maximum of 20 appointments. The data comes from all [place] treatment facilities. Appointment Date/Time Appointment Type Appointme nt Facility Name Feb 16, 2024 01:30 PM AMBULATORY - MEDICINE [place] [facility] [place] [facility] Feb 18, 2024 03:00 PM AMBULATORY - MEDICINE [place] [facility] [place] [facility] Mar 03, 2024 01:30 PM AMBULATORY - PSYCHIATRY [facility] [place] [facility] Apr 06, 2024 08:30 AM AMBULATORY - MEDICINE [facility] [place] [facility] Apr 19, 2024 02:15 PM AMBULATORY - MEDICINE [facility] [place] [facility] May 05, 2024 01:30 PM AMBULATORY - PSYCHIATRY [facility] [place] [facility] Jun 13, 2024 09:30 AM AMBULATORY - MEDICINE [place] [facility] [place] [facility] Jun 19, 2024 02:00 PM AMBULATORY - MEDICINE [place] [facility] [place] [facility] Jun 21, 2024 01:30 PM AMBULATORY - PSYCHIATRY [facility] [place] [facility] Jun 28, 2024 02:30 PM AMBULATORY - PSYCHIATRY [facility] [place] [facility] Jul 04, 2024 11:00 AM AMBULATORY - MEDICINE [place] [facility] [place] [facility] Jul 10, 2024 11:00 AM AMBULATORY - REHAB MEDICIN E [facility] [place] [facility] Jul 25, 2024 12:30 PM AMBULATORY - NONE [facility] [place] [facility] Jul 25, 2024 01:00 PM AMBULATORY - PSYCHIATRY [facility] [place] [facility] Jul 31, 2024 01:00 PM AMBULATORY - REHAB MEDICIN E [facility] [place] [facility] Jul 31, 2024 02:00 PM AMBULATORY - MEDICINE [place] [facility] [place] [facility] Aug 08, 2024 08:30 AM AMBULATORY - MEDICINE [facility] [place] [facility] Aug 08, 2024 09:30 AM AMBULATORY - NONE [place] [facility] [place] [facility] Lab Results: +/- 30 days of [...] Range Comment Feb 16, 2024 02:28 PM [facility] HEPATITIS B SURFACE ANTIBODY (HBsAb)-[facility] Specimen Type: SERUM No comment entered. Ordering Provider: ALEXANDR YODER Report Released Date/Time: Feb 16, 2024 01:52 PM Reporting Lab: [facility] [address] [address] Performing Lab: [facility] [address] [facility] [address] HBsAb Non Reactive Non Reactive Feb 16, 2024 02:28 PM [facility] THYROID TOTAL T4 Specimen Type: SERUM No comment entered. Ordering Provider: ALEXANDR YODER Report Released Date/Time: Feb 16, 2024 02:10 PM Reporting Lab: [facility] [address] [facility] [address] Performing Lab: [facility] [address] [facility] [address] THYROID TOTAL T4 9.87 ug/dL 4.5-12.0 Feb 16, 2024 02:28 PM [facility] TSH Specimen Type: SERUM No comment entered. Ordering Provider: ALEXANDR YODER Report Released Date/Time: Feb 16, 2024 02:10 PM Reporting Lab: [address] [address] Performing Lab: [address] [address] TSH 0.74 u[IU]/mL 0.35-5.00 Social History: Smoking Status (Most current) and Tobacco Use (All prior to encounter date) This section includes the most current, and the historical, smoking and tobacco- related health factors from the [place] facility where the Encounter took place. Current Smoking Status This section includes the most current smoking, or tobacco-related health factor, from the [place] facility where the Encounter took place. Date/Time Current Smoking Status Comment Artem shukla Apr 07, 2023 01:30 PM VA-TOBACCO FORMER USER [facility] Tobacco Use History This section includes a history of the smoking, or tobacco-related health factors, that were collected on or before the date of the Encounter. The data comes from the [facility] where the Encounter took place. Date/Time Smoking Status/Tobac co Use Comment Facility Apr 07, 2023 01:30 PM VA-TOBACCO QUIT 5 TO < 15 YRS [place] [facility] [place] [facility] May 07, 2022 09:30 AM VA-TOBACCO FORMER USER [place] [facility] [place] [facility] May 07, 2022 09:30 AM VA-TOBACCO QUIT 1 TO < 5 YRS [place] [facility] [place] [facility] May 15, 2021 08:45 AM VA-TOBACCO FORMER USER [place] [facility] [place] [facility] May 15, 2021 08:45 AM VA-TOBACCO QUIT 1 TO < 5 YRS [place] [facility] [place] [facility] Jun 04, 2020 10:30 AM VA-TOBACCO FORMER USER [place] [facility] [place] [facility] Jun 04, 2020 10:30 AM VA-TOBACCO QUIT < 1 YEAR [place] [facility] [place] [facility] May 23, 2019 09:36 AM VA-TOBACCO DOESNT USE WI 30 MIN WAKEUP [place] [facility] May 23, 2019 09:36 AM VA-TOBACCO USE 30 YEARS OR MORE [facility] May 23, 2019 09:36 AM VA-TOBACCO USE ADVICE [facility] May 23, 2019 09:36 AM VA-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 USE [employer]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 [place] [facility] May 23, 2019 09:36 AM VA-TOBACCO USE MED NO [place] [facility] [place] [facility] May 23, 2019 09:36 AM VA-TOBACCO USER EVERY DAY [place] [facility] [place] [facility] Apr 21, 2018 01:18 PM CURRENT SMOKER 1/2 pk a week [place] [facility] [place] [facility] Apr 21, 2018 01:18 PM V1-PT DECLINES REF TO TOBACCO CESS PRGM [place] [facility] Apr 21, 2018 01:18 PM V1-PT DECLINES TOB ACCO CESSATION MEDS [place] [facility] Apr 21, 2018 01:18 PM V1-PT THINKING ABO [facility] Oct 18, 2017 02:19 PM V1-PT NOT INTEREST ED IN QUIT [facility] Oct 04, 2017 01:55 PM CURRENT SMOKER .5 packs a day [facility] Advance Directives: All historical and current Section Date Range: From patient's date of to the date document was created. This section includes ALL of a patient's completed or amended [place] Advance and Rescinded Directives. The entries below indicate that a directive exists for the patient, but an actual copy is not included with this document. The data comes from all [place] facilities. Date Advance Directives Provider Source Feb 13, 2003 ADVANCE DIRECTIVE KAT OVIEDO [facility] Encounter Notes: All associated encounter notes This section contains the clinical notes associated to the Encounter. Date/Time Encounter Note(s) Provider Source Feb 14, 2024 04:08 PM ADMINISTRATIVE NOTE: LOCAL TITLE: ADMINISTRATIVE NOTE STANDARD TITLE: ADMINISTRATIVE NOTE DATE OF NOTE: FEB 14, 2024@16:08 ENTRY DATE: FEB 14, 2024@16:08:49 AUTHOR: AUNDREA HAMILTON EXP COSIGNER: URGENCY: STATUS: COMPLETED ADMINISTRATIVE NOTE Has [facility] [address] [place] [address] [place] [address] Community provider seeking new [facility] Care Pulm consult to schedule follow up. If in agreement, please enter updated consult. Thank you. /stefania HAMILTON Community Care RN Signed: 02/14/2024 16:09 Receipt Acknowledged By: 02/15/2024 07:47 /herlinda/ JR JOSEPH Nurse Practitioner 02/14/2024 18:45 /herlinda/ CAMDEN NINO, MSN, RN, CNL PRIMARY CARE TEAM NURSE 02/14/2024 ADDENDUM STATUS: COMPLETED A new [facility] Pulmonary consult placed and held for provider signature /herlinda/ CAMDEN NINO MSN, RN, CNL PRIMARY CARE TEAM NURSE Signed: 02/14/2024 18:44 AUNDREA HAMILTON [facility]
--- OUTSIDE RECORDS SUMMARY | 2024-08-18 13:10 | XMS_ITS | Encounter Summary ---
Author Name [facility] Organization [facility] Address [address] [place] [address] Care Team Providers Care Fruit Washer Name Role Phone ALEXANDR YODER Primary Care [...] (WNR) MEDICARE ADVANTAGE HUMAN A INSUR ANCE [facility] Mar 23, 2023 [id number] [phone] Ezekiel WILKERSON PATIENT Selected Encounter This section includes the information on record at ME for the Encounter. Date/Time Encounter Type Encounter Description Reason Pro vider Source Mar 07, 2024 07:03 PM Outpatient Encounter ADMIN PAT ACTIVTIES (MASNONCT) IHE Encounter Template Text not used by ME Plan of Treatment: Future Appointments (+ 6 months) and Future Tests (+/- 45 days) The Plan of Treatment section includes future care activities for the patient from all ME treatmentfacilities. This section includes future appointments and future orders which are active, pending or scheduled. Future Appointments This section includes appointments that were scheduled to occur 6 months from the date of the Encounter, up to a maximum of 20 appointments. The data comes from all ME treatment facilities. Appointment Date/Time Appointment Type Appointme nt Facility Name Apr 06, 2024 08:30 AM [facility]ULATORY [facility]IC[facility] [place] [facility] Apr 19, 2024 02:15 PM [facility]ULATORY [facility]IC[facility] [place] [facility] May 05, 2024 01:30 PM AMBULATORY - PSYCHIATRY [facility] [place] [facility] Jun 13, 2024 09:30 AM [facility]ULATORY [facility]IC[facility] [place] [facility] Jun 19, 2024 02:00 PM AMBULATORY - MEDICINE [facility] [place] [facility] Jun 21, 2024 01:30 PM AMBULATORY - PSYCHIATRY [facility] [place] [facility] Jun 28, 2024 02:30 PM AMBULATORY - PS[facility]CHIATRY [facility] [place] [facility] Jul 04, 2024 11:00 AM AMBULATORY [facility]IC[facility] [place] [facility] Jul 10, 2024 11:00 AM AMBULATORY - REHAB MEDICIN E [facility] [place] [facility] Jul 25, 2024 12:30 PM AMBULATORY - NONE [facility] [place] [facility] Jul 25, 2024 01:00 PM AMBULATORY - PS[facility]CHIATRY [facility] [place] [facility] Jul 31, 2024 01:00 PM AMBULATORY - REHAB MEDICIN E [facility] [place] [facility] Jul 31, 2024 02:00 PM AMBULATORY - MEDICINE [facility] [place] [facility] Aug 08, 2024 08:30 AM AM[facility]ULATORY [facility]IC[facility] [place] [facility] Aug 08, 2024 09:30 AM AMBULATORY - NONE [facility] [place] [facility] Aug 21, 2024 02:30 PM AMBULATORY - REHAB MEDICIN E [facility] [place] [facility] Aug 22, 2024 10:00 AM AMBULATORY - MEDICINE [facility] [place] [facility] Aug 29, 2024 11:00 AM AMBULATORY - PS[facility]CHIATRY [facility] [place] [facility] Aug 29, 2024 11:30 AM AMBULATORY - PSYCHIATRY [facility] [place] [facility] Lab Results: +/- 30 days of [...] Range Comment Feb 16, 2024 02:28 PM [facility] HEPATITIS B SURFACE ANTIBODY (HBsAb)-WH Specimen Type: SERUM No comment entered. Ordering Provider: ALEXANDR YODER Report Released Date/Time: Feb 16, 2024 01:52 PM Reporting Lab: [facility] [address] [address] Performing Lab: [facility] [address] [facility] [address] HBsAb Non Reactive Non Reactive Feb 16, 2024 02:28 PM [facility] THYROID TOTAL T4 Specimen Type: SERUM No comment entered. Ordering Provider: ALEXANDR YODER Report Released Date/Time: Feb 16, 2024 02:10 PM Reporting Lab: [facility] [address] [address] Performing Lab: [facility] [address] [address] THYROID TOTAL T4 9.87 ug/dL 4.5-12.0 Feb 16, 2024 02:28 PM [facility] TSH Specimen Type: SERUM No comment entered. Ordering Provider: ALEXANDR YODER Report Released Date/Time: Feb 16, 2024 02:10 PM Reporting Lab: [facility] [address] [facility] [address] Performing Lab: [address] [address] TSH 0.74 u[IU]/mL 0.35-5.00 Social History: Smoking Status (Most current) and Tobacco Use (All prior to encounter date) This section includes the most current, and the historical, smoking and tobacco- related health factors from the ME facility where the Encounter took place. Current Smoking Status This section includes the most current smoking, or tobacco-related health factor, from the ME facility where the Encounter took place. Date/Time Current Smoking Status Comment Facil it Apr 07, 2023 01:30 PM VA-TOBACCO FORMER USER [facility] [place] [facility] Tobacco Use History This section includes a history of the smoking, or tobacco-related health factors, that were collected on or before the date of the Encounter. The data comes from the ME facility where the Encounter took place. Date/Time Smoking Status/Tobac co Use Comment [facility] Apr 07, 2023 01:30 PM VA-TOBACCO QUIT 5 TO < 15 YRS [facility] [place] [facility] May 07, 2022 09:30 AM VA-TOBACCO FORMER USER [facility] [place] [facility] May 07, 2022 09:30 AM VA-TOBACCO QUIT 1 TO < 5 YRS [facility] [place] [facility] May 15, 2021 08:45 AM VA-TOBACCO FORMER USER [facility] [place] [facility] May 15, 2021 08:45 AM VA-TOBACCO QUIT 1 TO < 5 YRS [facility] [place] [facility] Jun 04, 2020 10:30 AM VA-TOBACCO FORMER USER [facility] [place] [facility] Jun 04, 2020 10:30 AM VA-TOBACCO QUIT < 1 YEAR [facility] [place] [facility] May 23, 2019 09:36 AM VA-TOBACCO DOESNT USE WI 30 MIN WAKEUP [facility] [place] [facility] May 23, 2019 09:36 AM VA-TOBACCO USE 30 YEARS OR MORE [facility] [place] [facility] May 23, 2019 09:36 AM VA-TOBACCO USE ADVICE [facility] [place] [facility] May 23, 2019 09:36 AM VA-TOBACCO USE SHOP LEAD NO [facility] [place] [facility] May 23, 2019 09:36 AM VA-TOBACCO USE MED NO [facility] [place] [facility] May 23, 2019 09:36 AM VA-TOBACCO USER EVERY DAY [facility] [place] [facility] Apr 21, 2018 01:18 PM CURRENT SMOKER 1/2 pk a week [facility] [place] [facility] Apr 21, 2018 01:18 PM V1-PT DECLINES REF TO TOBACCO CESS PRGM [facility] [place] [facility] Apr 21, 2018 01:18 PM V1-PT [...] ALL of a patient's completed or amended [place] Advance and Rescinded Directives. The entries below indicate that a directive exists for the patient, but an actual copy is not included with this document. The data comes from all [place] facilities. Date Advance Directives Provider Source Feb 13, 2003 ADVANCE DIRECTIVE KAT OVIEDO [facility] Encounter Notes: All associated encounter notes This section contains the clinical notes associated to the Encounter. 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 Take ASA with food. Any sign of bleeding, discontinue aspirin immediately and seek ED evaluation/ PCP or GI specialist. /herlinda/ FROY HORNER MS,PAYesiC PHYSICIAN DRAGLINE MECHANIC Signed: 03/08/2024 08:26 Receipt Acknowledged By: 03/08/2024 13:48 /herlinda/ CAMDEN NINO, MSN, RN, CNL PRIMARY CARE TEAM NURSE ========= --- Original Document --- 03/07/24 V1 PHARMACY CUSTOMER CARE MEDICATION RENEWAL: Date: Feb Division: [facility] referred by Pharmacy Call Center for medication renewal: Non-controlled/maintena nce medication Medications requested: [id number] ASPIRIN 325MG EC TAB Defer to primary care provider To be mailed . Please review and renew if appropriate. *This note was generated by [facility] Pharmacy Customer Care. If you have any questions or need assistance, do not contact this author. Please refer all questions to your local, on-site pharmacy departments. /es/ BEVERLY BAIG [facility] [place], [place]/Pharmacy Customer Care Signed: 03/07/2024 19:03 Receipt Acknowledged By: 03/08/2024 08:25 /herlinda/ FROY HORNER MS,[place] PHYSICIAN DRAGLINE MECHANIC for ALEXANDR YODER 03/08/2024 08:19 /es/ URVASHI DIAZ, RN, CNL PRIMARY CARE TEAM NURSE 03/08/2024 ADDENDUM STATUS: COMPLETED Forwarding to covering provider /herlinda/ URVASHI DIAZ, RN, CNL PRIMARY CARE TEAM NURSE Signed: 03/08/2024 08:19 Receipt Acknowledged By: 03/08/2024 08:24 /herlinda/ FROY HORNER MS,ALEXANDRA PHYSICIAN DRAGLINE MECHANIC 03/08/2024 ADDENDUM STATUS: UNSIGNED You may not VIEW this UNSIGNED Addendum. FROY HALL [facility] [place] [facility] Mar 08, 2024 08:18 AM ADDENDUM: LOCAL TITLE: Addendum STANDARD TITLE: ADDENDUM DATE OF NOTE: MAR 08, 2024@08:18:51 ENTRY DATE: MAR 08, 2024@08:18:53 AUTHOR: CAMDEN NINO EXP COSIGNER: URGENCY: STATUS: COMPLETED Forwarding to covering provider /herlinda/ CAMDEN NINO MSN, RN, CNL PRIMARY CARE TEAM NURSE Signed: 03/08/2024 08:19 Receipt Acknowledged By: 03/08/2024 08:24 /herlinda/ FROY HORNER MS,[place] PHYSICIAN DRAGLINE MECHANIC ========= --- Original Document --- 03/07/24 V1 PHARMACY CUSTOMER CARE MEDICATION RENEWAL: Date: Feb Division: [facility] referred by Pharmacy Call Center for medication renewal: Non-controlled/maintena nce medication Medications requested: [id number] ASPIRIN 325MG EC TAB Defer to primary care provider To be mailed . Please review and renew if appropriate. *This note was generated by [facility] Pharmacy Customer Care. If you have any questions or need assistance, do not contact this author. Please refer all questions to your local, on-site pharmacy departments. /stefania BAIG CPhT [place] [facility] [place], [place]/Pharmacy Customer Care Signed: 03/07/2024 19:03 Receipt Acknowledged By: * AWAITING SIGNATURE * ALEXANDR YODER 03/08/2024 08:19 /herlinda/ CAMDEN NINO, MSN, RN, CNL PRIMARY CARE TEAM NURSE CAMDEN NINO [facility] Mar 07, 2024 07:03 PM PHARMACY NOTE: LOCAL TITLE: V1 PHARMACY CUSTOMER CARE MEDICATION RENEWAL STANDARD TITLE: PHARMACY NOTE DATE OF NOTE: MAR 07, 2024@19:03 ENTRY DATE: MAR 07, 2024@19:03:23 AUTHOR: BEVERLY BAIG EXP COSIGNER: URGENCY: STATUS: COMPLETED V1 PHARMACY CUSTOMER CARE MEDICATION RENEWAL Has ADDENDA Date: Feb Division: [facility] referred by Pharmacy Call Center for medication renewal: Non-controlled/maintena nce medication Medications requested: [id number] ASPIRIN 325MG EC TAB Defer to primary care provider To be mailed . Please review and renew if appropriate. *This note was generated by [facility] Pharmacy Customer Care. If you have any questions or need assistance, do not contact this author. Please refer all questions to your local, on-site pharmacy departments. 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 Take ASA with food. Any sign of bleeding, discontinue aspirin immediately and seek ED evaluation/ PCP or GI specialist. /stefania HORNER MS,[place] PHYSICIAN DRAGLINE MECHANIC Signed: 03/08/2024 08:26 Receipt Acknowledged By: 03/08/2024 13:48 /URVASHI Cooley, RN, CNL PRIMARY CARE TEAM NURSE 03/08/2024 ADDENDUM STATUS: COMPLETED Call to [facility]. Left a message relaying the above information. /URVASHI Cooley, RN, CNL PRIMARY CARE TEAM NURSE Signed: 03/08/2024 13:50 BEVERLY BAIG [facility]
--- OUTSIDE RECORDS SUMMARY | 2024-08-18 13:10 | XMS_ITS ---
Author Name [facility] [place] [facility] [place] [place] Address [address] [place] [address] Care Team Providers Care Dental Laboratory Technician Apprentice Name Role Phone ALEXANDR YODER Primary Care [...] ADVANTAGE HUMAN A INSUR ANCE [facility] Mar 23, 2023 [id number] [phone] Ezekiel WILKERSON PATIENT Selected Encounter This section includes the information on record at [place] for the Encounter. Date/Time Encounter Type Encounter Description Reason Provider Source Feb 16, 2024 01:30 PM OFFICE O/P EST MOD 30 MIN PRIMARY CARE/MEDICINE ICD-10-CM R14.0 Abdominal distension (gaseous) ALEXANDR YODER [facility] Encounter Template Text not used by [place] Assessments - Encounter Diagnoses This section includes the primary and secondary diagnoses documented for the Encounter. Date/Time Primary/Secondary Diagnosis Diagnosis Name Provider Source Feb 17, 2024 10:16 AM PRIMARY Abdominal distension (gaseous) ALEXANDR YODER [facility] [place] [facility] Plan of Treatment: Future Appointments (+ 6 months) and Future Tests (+/- 45 days) The Plan of Treatment section includes future care activities for the [facility] [place] [facility] This section includes future appointments and future orders which are active, pending or scheduled. Future Appointments This section includes appointments that were scheduled to occur 6 months from the date of the Encounter, up to a maximum of 20 appointments. The data comes from all [place] treatment facilities. Appointment Date/Time Appointment Type Appointme nt Facility Name Feb 18, 2024 03:00 PM AMBULATORY - [...] [facility] [place] [facility] Jul 10, 2024 11:00 AM AMBULATORY - [facility] [place] [facility] Jul 25, 2024 12:30 PM AMBULATORY - NONE [facility] [place] [facility] Jul 25, 2024 01:00 PM AMBULATORY - PSYCHIATRY [facility] [place] [facility] Jul 31, 2024 01:00 PM AMBULATORY - REHAB MEDICIN E [facility] [place] [facility] Jul 31, 2024 02:00 PM AMBULATORY - MEDICINE [facility] [place] [facility] Aug 08, 2024 08:30 AM AMBULATORY - MEDICINE [facility] [place] [facility] Aug 08, 2024 09:30 AM AMBULATORY - NONE [facility] [place] [facility] Lab Results: +/- 30 days of the encounter This section includes the Chemistry and Hematology Lab Results on record with [place] for the patient. Radiology Reports and Pathology Reports are provided separately, in subsequent sections. Lab Results This section contains the Chemistry/Hematology Results that were resulted 30 days before or 30 daysafter the date of the Encounter. Date/Time Source Result Type Result - Unit Interpretation Reference Range Comment Feb 16, 2024 02:28 PM [facility] HEPATITIS B SURFACE ANTIBODY (HBsAb)-WH Specimen Type: SERUM No comment entered. Ordering Provider: ALEXANDR YODER Report Released Date/Time: Feb 16, 2024 01:52 PM Reporting Lab: [facility] [address] [facility] [address] Performing Lab: [address] [address] HBsAb Non Reactive Non Reactive Feb 16, 2024 02:28 PM [facility] THYROID TOTAL T4 Specimen Type: SERUM No comment entered. Ordering Provider: ALEXANDR YODER Report Released Date/Time: Feb 16, 2024 02:10 PM Reporting Lab: [facility] [address] [facility] [address] Performing Lab: [facility] [address] [facility] [address] THYROID TOTAL T4 9.87 ug/dL 4.5-12.0 Feb 16, 2024 02:28 PM [facility] TSH Specimen Type: SERUM No comment entered. Ordering Provider: ALEXANDR YODER Report Released Date/Time: Feb 16, 2024 02:10 PM Reporting Lab: [facility] [address] [facility] [address] Performing Lab: [facility] [address] [facility] [address] TSH 0.74 u[IU]/mL 0.35-5.00 Vital Signs: All taken on the encounter date This section contains inpatient and outpatient Vital Signs collected on the date of the Encounter. Date/Time Temperature Pulse Blood Pressure Respiratory Rate SP02 Pain Height Weight Body Mass Index Source Feb 16, 2024 01:43 PM 98.2 82 137/86 16 91 2 262 44 [place] [facility] [place] [facility] Social History: Smoking Status (Most current) and Tobacco Use (All prior to encounter date) This section includes the most current, and the historical, smoking and tobacco- related health factors from the [place] facility where the Encounter took place. Current Smoking Status This section includes the most current smoking, or tobacco-related health factor, from the [place] facility where the Encounter took place. Date/Time Current Smoking Status Comment Facil it Apr 07, 2023 01:30 PM VA-TOBACCO FORMER USER [place] [facility] Tobacco Use History This section includes a history of the smoking, or tobacco-related health factors, that were collected on or before the date of the Encounter. The data comes from the [place] facility where the Encounter took place. Date/Time Smoking Status/Tobac co Use Comment Facility Apr 07, 2023 01:30 PM VA-TOBACCO QUIT 5 TO < 15 YRS [place] [facility] [place] [facility] [...] VA-TOBACCO QUIT 1 TO < 5 YRS [place] [facility] [place] [facility] Jun 04, 2020 10:30 AM VA-TOBACCO FORMER USER [facility] [place] [facility] Jun 04, 2020 10:30 AM VA-TOBACCO QUIT < 1 YEAR [facility] [place] [facility] May 23, 2019 09:36 AM VA-TOBACCO DOESNT USE WI 30 MIN WAKEUP [place] [facility] [place] [facility] May 23, 2019 09:36 AM VA-TOBACCO USE 30 YEARS OR MORE [facility] [place] [facility] May 23, 2019 09:36 AM VA-TOBACCO USE ADVICE [facility] [place] [facility] May 23, 2019 09:36 AM VA-TOBACCO USE TEST DRILLER NO [facility] [place] [facility] May 23, 2019 09:36 AM VA-TOBACCO USE MED NO [facility] May 23, 2019 09:36 AM VA-TOBACCO USER EVERY DAY [facility] Apr 21, 2018 01:18 PM CURRENT SMOKER 1/2 pk a week [facility] Apr 21, 2018 01:18 PM V1-PT DECLINES REF TO TOBACCO CESS PRGM [facility] Apr 21, 2018 01:18 PM V1-PT DECLINES TOB ACCO CESSATION MEDS [facility] Apr 21, 2018 01:18 PM V1-PT THINKING ABO UT QUIT TOBACCO USE [facility] Oct 18, 2017 02:19 PM V1-PT NOT INTEREST ED IN QUIT TOBACCO USE [facility] Oct 04, 2017 01:55 PM CURRENT SMOKER .5 packs a day [facility] Advance Directives: All historical and current Section Date Range: From patient's date of to the date document was created. This section includes ALL of a patient's completed or amended [place] Advance and Rescinded Directives. The entries below indicate that a directive exists for the patient, but an actual copy is not included with this document. The data comes from all [place] facilities. Date Advance Directives Provider Source Feb 13, 2003 ADVANCE DIRECTIVE KAT OVIEDO [facility] Encounter Notes: All associated encounter notes This section contains the clinical notes associated to the Encounter. Date/Time Encounter Note(s) Provider Source Feb 25, 2024 03:48 PM LETTERS: LOCAL TITLE: PATIENT LETTER (B) STANDARD TITLE: LETTERS DATE OF NOTE: FEB 25, 2024@15:48 ENTRY DATE: FEB 25, 2024@15:48:35 AUTHOR: ALEXANDR YODER EXP COSIGNER: URGENCY: STATUS: COMPLETED [facility] [facility] Toll Free Number Telephone Assistance can be reached at extension [phone] Date:FEB 25, 2024 ANDRZEJ WILKERSON [address] [place] [address]. [address] [place], [place], [address] Dear Mr Wilkerson, Your thyroid level is normal. You can continue taking your current dose of levothyroxine. Below are a listing of upcoming appointments you have scheduled at [facility]: 03/03/2024 13:30 CWM/NO/MHC/CLP2 04/19/2024 14:15 COM CARE-PULMONARY 06/19/2024 14:00 CWM/NO/PODIATRY/NAIL 06/28/2024 13:30 CWM/NO/PACT 5 12/06/2024 15:00 CWM/NO/OTOLARYNGOLOGY Please feel free to call with any questions at [phone]. Sincerely, JR Goldstein Family Nurse Practitioner Women's Health Environmental Exposures [facility] [address] [address] [place] [address] [phone] [facility] [address] [address] [place] [address] [phone] ALEXANDR YODER [place] [facility] [place] [facility] Feb 16, 2024 01:54 PM PRIMARY CARE NURSE PRACTITIONER OUTPATIENT NOTE: LOCAL TITLE: NURSE PRACTITIONER OUTPATIENT NOTE STANDARD TITLE: PRIMARY CARE NURSE PRACTITIONER OUTPATIENT NOTE DATE OF NOTE: FEB 16, 2024@13:54 ENTRY DATE: FEB 16, 2024@13:54:48 AUTHOR: ALEXANDR YODER EXP COSIGNER: URGENCY: STATUS: COMPLETED Chief complaint: Pt is a 68 who comes in for follow up of medical problems as noted below. HPI: Mr Wilkerson went to [facility] ER with n/v on 01/20/24 he said they just did a CT and sent him home. Notes state they checked CXR, CT abd and labs and all reassuring he recieved zofran IVF and was d'cd after tolerate some bland food/crackers and PO fluids. CT showed air filled proximal to mid mildly dilated loops of small bowel with few air filled levels Gastric distension with air and fluid. No associated inflammatory stranding or fluid Non distended distal small bowel loops it was noted that findings can represent ileus which could include enteritis No bowel obstruction seen He is still quite distended which is c/w his baseline, he eats small more frequent meals, a 04/2022 GI note from [facility] states he is not due for colonscopy until 2031 and upper endo in 2024, he has known small hiatal and barretts as well as GERD, he takes PPI daily, H Pylori was checked at that time and negative He denies distress fevers further n/v/d having BMs and voiding well PMH: Active problems - Computerized Problem List is the source for the followin. 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 Colonoscopy normal [facility] 10/2021-- Repeat colonoscopy for screening purposes on 10/2031 3. Degenerative disc disease moderate to severe lumbar DDD on xray 08/2022 4. Depression 5. Sleep apnea 6. Supraventricular tachycardia 05/13/21 [facility] Successful Ablation 7. HTN - Hypertension (SCT [id number]) 8. Anxiety disorder 9. H/O: gastric ulcer reports approximately 15 years ago. 10. Steatosis of liver 05/2019 - Liver labs - wnl 11. Partial tear, knee, anterior cruciate ligament s/p fall - right knee trauma ( seen [facility]/ 05/23/19 06/07/19 - MRI - [facility] - anterior Cruciate ligament tear Orthopedical [...] Obesity 18. Patient requires hospitalization sent to [facility] - for DVT ( chest PAIN) 19. History of surgery Mastoid - left ear - in [facility] [place] knee ? 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 Chronic obstructive lung disease MED: ALBUTEROL 100/IPRATRO, ALBUTEROL 90MCG 21. [facility] 22. Obesity 23. H/O: Deep vein thrombosis per pt report - upper arm ( [facility] ) 24. Adult [...] JUICE NOTE NEW TABLET STRENGTH/INCREASED DOSE 4) BUSPIRONE HCL 10MG TAB TAKE TWO TABLETS BY MOUTH ACTIVE TWICE DAILY 5) CETIRIZINE HCL 10MG TAB TAKE ONE TABLET BY MOUTH ONCE ACTIVE DAILY FOR ALLERGIES 6) ESCITALOPRAM OXALATE 20MG TAB TAKE ONE TABLET BY ACTIVE MOUTH ONCE DAILY FOR MOOD/DEPRESSION 7) FLUTICAS 250/SALMETEROL 50 INHL DISK 60 INHALE 1 PUFF ACTIVE BY MOUTH EVERY 12 HOURS - RINSE MOUTH AFTER USE 8) HYDROCORTISONE 1% CREAM APPLY A SMALL AMOUNT ACTIVE TOPICALLY TWICE DAILY NEEDED FOR ITCHING 9) OMEPRAZOLE 20MG EC CAP TAKE ONE CAPSULE BY MOUTH ACTIVE EVERY MORNING 30 MINUTES BEFORE BREAKFAST 10) PRAZOSIN HCL 1MG CAP TAKE ONE CAPSULE BY MOUTH AT ACTIVE BEDTIME Inactive Outpatient Medications Status 1) ALBUTEROL SO4 0.083% INHL 3ML INHALE 1 AMPULE IN NEBULIZER EVERY 6 HOURS NEEDED FOR BREATHING Active Non-VA Medications Status 1) Non-VA OTHER CAP/TAB BY MOUTH ACTIVE 12 Total Medications Allergies: BEE STINGS, PENICILLIN, DOXYCYCLINE VITAL SIGNS: 98.2 F [36.8 C] (02/16/2024 13:43) 82 (02/16/2024 13:43) 16 (02/16/2024 13:43) 137/86 (02/16/2024 13:43) 2 (02/16/2024 13:43) 65 in [165.1 cm] (07/26/2023 14:01) 262 lb [118.84 kg] (02/16/2024 13:43) BMI: 43.7 ROS SKIN: denies any rashes or suspicious lesions RESP: denies SOB has cough c/w baseline and copd CV: denies CP GI: denies abd pain, hematochezia n/v still distended with bloating : denies hematuria, nocturia Musculo: denies weakness or joint pain Mental Health: Denies SI, HI PHYSI BEATRIS EXAM GENERAL: well appearing in NAD, speeking in clear sentences. RESP: CTAB, no wheezing or Rales. Cards: S1 S2 RRR, No m/r/g no JVD, No Pedal Edema, Distal Pulses palpable GI: firm, distended (+) BSx4-hypo, no rebound or guarding NEURO CN II-XII grossly intact, gait steady without shuffle MENTAL A&Ox3 Appropriate, Pleasant, Cooperative LAB RESULTS LAST 1440 HRS - NONE FOUND Future Clinic Visits 02/18/2024 15:00 CWM/NO/PODIATRY/NAIL 03/03/2024 13:30 CWM/NO/MHC/CLP2 04/19/2024 14:15 COM CARE-PULMONARY 12/06/2024 15:00 CWM/NO/OTOLARYNGOLOGY ASSESSMENT AND PLAN: 1)Bloating -He will cont PPI daily -adding in famotidine at night -referral to GI, due for upper endo next year might consider doing earlier -He is having reg soft form bowels so no need for any miralax at this time. -Cont high fiber, pushing water intake, walking often he is aware if fevers no BM in 3 days abd pain n/v/d go back to er Return to clinic to see me in 6 months, RTC sooner if needed. Clinical Reminders Medication Reconciliation: Outpatient: Has the patient been taking medications as documented in the EMLR? YES: The patient has been taking medications as documented in the EMLR. Essential Medication List for Review used to complete this medication reconciliation. INCLUDED IN THIS LIST: Alphabetical list of active outpatient prescriptions dispensed from this [place] (local) and dispensed from another [place] or [facility] facility (remote) as well as inpatient orders [...] provider. /herlinda/ JR JOSEPH Nurse Practitioner Signed: 02/17/2024 10:16 ALEXANDR YODER [place] [facility] [place] [facility] Feb 16, 2024 01:36 PM PREVENTIVE MEDICINE NURSING NOTE: LOCAL TITLE: CLINICAL REMINDERS/NURSING STANDARD TITLE: PREVENTIVE MEDICINE NURSING NOTE DATE OF NOTE: FEB 16, 2024@13:36 ENTRY DATE: FEB 16, 2024@13:36:11 AUTHOR: DONTA MANNING EXP COSIGNER: URGENCY: STATUS: COMPLETED RHS Screen: RHS Screen Session Format: Face to Face Environmental Check Upon inquiry, the individual reports that the environment is safe to proceed. Informed Consent to Screen and Document The individual consents to proceed with screening. The individual consents to documentation of responses. PRIMARY SCREEN: In the past 12 months, how often did a current or former intimate partner (e.g., boyfriend, girlfriend, , , sexual partner): 1. Scream or curse at you Never 2. Insult or talk down to you Never 3. Threaten you with harm Never 4. Physically hurt you Never 5. Force or pressure you to have sexual contact against your will, or when you were unable to say no Never ?? The HITS tool (items 1-4 above) is [place] copyright protected by Hussein Sawyer MD, and the user has full rights to use it throughout the [place] system. PRIMARY SCREEN RESULT: The Primary Screen is NEGATIVE. The individual answered never to all forms of IPV above (i.e., answered never to all 5 items) The individual accepts education and/or resources: Yes - Offered verbal universal education about IPV EDUCATION: The individual indicated readiness to learn. Education offered during this session as noted above. The individual indicated understanding by asking relevant questions and making appropriate comments. No barriers to learning were observed or identified. Hepatitis B Serology/Immunization: see orders COVID-19 Immunization: Refused Moderna Monovalent COVID-19 vaccine Immunization: COVID-19 (MODERNA), MRNA, LNP-S, PF, 50 MCG/0.5 ML (AGES 12+ YEARS) Refusal Reason: PATIENT DECISION Patient refuses all immunization(s) in the COVID-19 group Date Documented: 02/16/24 13:51 /herlinda/ DONTA MANNING REGISTERED NURSE Signed: 02/16/2024 13:52 [facility]
--- OUTSIDE RECORDS SUMMARY | 2024-08-18 13:10 | XMS_ITS ---
Author Name [facility] [place] Organization [facility] [place] Address [address] [place] [address] Care Team Providers Care Auto Electrician Name Role Phone ALEXANDR YODER Primary Care [...] Name Patient's Relationship to Policy [place] (WNR) MEDICARE ADVANTAGE HUMAN A INSUR ANCE [facility] Mar 23, 2023 [id number] [phone] Ezekiel WILKERSON PATIENT Selected Encounter This section includes the information on record at [place] for the Encounter. Date/Time Encounter Type Encounter Description Reason Pro vider Source January 20, 2024 12:00 AM Outpatient Encounter EVENT (HISTORICAL) IHE Encounter Template Text not used by [place] [...] AMBULATORY - PSYCHIATRY [facility] [place] [facility] Feb 16, 2024 01:30 PM AMBULATORY - MEDICINE [facility] [place] [facility] Feb 18, 2024 03:00 PM AMBULATORY - MEDICINE [facility] [place] [facility] Mar 03, 2024 01:30 PM AMBULATORY - PSYCHIATRY [facility] [place] [facility] Apr 06, 2024 08:30 AM AMBULATORY - MEDICINE [facility] [place] [facility] Apr 19, 2024 02:15 PM AMBULATORY - MEDICINE [facility] [place] [facility] May 05, 2024 01:30 PM AMBULATORY - PSYCHIATRY [facility] [place] [facility] Jun 13, 2024 09:30 AM AMBULATORY - MEDICINE [facility] [place] [facility] Jun 19, 2024 02:00 PM AMBULATORY - MEDICINE [facility] [place] [facility] Jun 21, 2024 01:30 PM AMBULATORY - PSYCHIATRY [facility] [place] [facility] Jun 28, 2024 02:30 PM AMBULATORY - PSYCHIATRY [facility] [place] [facility] Jul 04, 2024 11:00 AM AMBULATORY - MEDICINE [facility] [place] [facility] Jul 10, 2024 11:00 AM AMBULATORY - REHAB MEDICIN E [facility] [place] [facility] Lab Results: +/- 30 days of [...] Range Comment Feb 16, 2024 02:28 PM [place] [facility] [place] [facility] HEPATITIS B SURFACE ANTIBODY (HBsAb)-WH Specimen Type: SERUM No comment entered. Ordering Provider: ALEXANDR YODER Report Released Date/Time: Feb 16, 2024 01:52 PM Reporting [facility] [address] [facility] [address] Performing Lab: [facility] [address] HBsAb Non Reactive Non Reactive Feb 16, 2024 02:28 PM [place] [facility] [place] [facility] THYROID TOTAL T4 Specimen Type: SERUM No comment entered. Ordering Provider: ALEXANDR YODER Report Released Date/Time: Feb 16, 2024 02:10 PM Reporting [facility] [place] [facility] [address] [facility] [address] Performing Lab: [place] [facility] [facility] [address] [facility] [address] THYROID TOTAL T4 9.87 ug/dL 4.5-12.0 Feb 16, 2024 02:28 PM [facility] TSH Specimen Type: SERUM No comment entered. Ordering Provider: ALEXANDR YODER Report Released Date/Time: Feb 16, 2024 02:10 PM Reporting Lab: [facility] NORTHTR[facility] [address] [facility] [address] Performing Lab: [facility] NORTHTRN [facility] [address] [address] TSH 0.74 u[IU]/mL 0.35-5.00 Social History: Smoking [...] place. Date/Time Current Smoking Status Comment [facility] Apr 07, 2023 01:30 PM [place]-TOBACCO QUIT 5 TO < 15 YRS [facility] Tobacco Use History This section includes [...] < 15 YRS [place] [facility] [place] [facility] May 07, 2022 09:30 AM VA-TOBACCO FORMER USER [place] [facility] [facility] May 07, 2022 09:30 AM VA-TOBACCO QUIT 1 TO < 5 YRS [facility] May 15, 2021 08:45 AM VA-TOBACCO FOR[facility]ER [facility] May 15, 2021 08:45 AM VA-TOBACCO QUIT 1 TO < 5 YRS [facility] [place] [facility] Jun 04, 2020 10:30 AM VA-TOBACCO [facility] Jun 04, 2020 10:30 AM VA-TOBACCO QUIT < 1 YEAR [facility] May 23, 2019 09:36 AM VA-TOBACCO DOESNT USE WI 30 MIN WAKEUP [facility] May 23, 2019 09:36 AM VA-TOBACCO USE 30 YEARS OR MORE [facility] May 23, 2019 09:36 AM VA-TOBACCO USE [facility] May 23, 2019 09:36 AM VA-TOBACCO USE SURVEILLANCE 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 [facility]TR[facility] May 23, 2019 09:36 AM VA-TOBACCO USE MED NO [facility] May 23, 2019 09:36 AM VA-TOBACCO USER EVERY DAY [facility] Apr 21, 2018 01:18 PM CURRENT SMOKER 1/2 pk a week [facility] [place] [facility] Apr 21, 2018 01:18 PM V1-PT DECLINES REF TO TOBACCO CESS PRGM [facility] [place] [facility] Apr 21, 2018 01:18 PM V1-PT DECLINES TOB ACCO CESSATION MEDS [facility] [place] [facility] Apr 21, 2018 01:18 PM V1-PT THINKING ABO UT QUIT TOBACCO USE [facility] [place] [facility] Oct 18, 2017 02:19 PM V1-PT NOT INTEREST ED IN QUIT TOBACCO USE [facility] [place] [facility] Oct 04, 2017 01:55 PM CURRENT SMOKER .5 packs a day [facility] Advance Directives: All historical and current [...] Feb 13, 2003 ADVANCE DIRECTIVE KAT OVIEDO [facility] Encounter Notes: All associated encounter notes This section contains the clinical notes associated to the Encounter. Date/Time Encounter Note(s) Provider Source January 20, 2024 12:00 AM NONVA NOTE: LOCAL TITLE: NON-VA HOSPITALIZATIONS/ER STANDARD TITLE: NONVA NOTE DATE OF NOTE: JANUARY 20, 2024 ENTRY DATE: FEB 02, 2024@06:43:36 AUTHOR: REEMA BRAND EXP COSIGNER: URGENCY: STATUS: COMPLETED VistA Imaging - Scanned Document SCANNED DOCUMENT SIGNATURE NOT REQUIRED Electronically Filed: 02/02/2024 by: REEMA WHITEHEAD [place] [facility]
--- OUTSIDE RECORDS SUMMARY | 2024-08-18 13:10 | XMS_ITS | Encounter Summary ---
Author Name [facility] [facility] [place] Address [address] [place] [address] Care Team Providers Care Dealer Support Technician Name Role Phone ALEXANDR YODER Primary [...] Name Patient's Relationship to Policy [place] [employer] [facility] (WNR) MEDICARE ADVANTAGE HUMAN A INSUR ANCE [facility] Mar 23, 2023 [id number] [phone] Ezekiel WILKERSON PATIENT Selected Encounter This section includes the information on record at [place] for the Encounter. Date/Time Encounter Type Encounter Description Reason Pro vider Source Jan 26, 2024 03:14 AM Outpatient Encounter TELEPHONE TRIAGE IHE Encounter Template Text not used by [place] Plan of Treatment: Future Appointments (+ 6 months) and Future Tests (+/- 45 days) The Plan of Treatment section includes future care activities for the patient from all [place] treatmentfacilities. This section includes future appointments and future orders which are active, pending or scheduled. Future Appointments This section includes appointments that were scheduled to occur 6 months from the date of the Encounter, up to a maximum of 20 appointments. The data comes from all [place] treatment facilities. Appointment Date/Time Appointment Type Appointme nt Facility Name Feb 16, 2024 01:30 PM AMBULATORY - MEDICINE [place] [facility] [place] [facility] Feb 18, 2024 03:00 PM AMBULATORY [facility] MEDICINE [facility] [place] [facility] Mar 03, 2024 01:30 PM AMBULATORY - PSYCHIATRY [facility] [place] [facility] Apr 06, 2024 08:30 AM AMBULATORY - MEDICINE [facility] [place] [facility] Apr 19, 2024 02:15 PM AMBULATORY - MEDICINE [facility] [place] [facility] May 05, 2024 01:30 PM AMBULATORY - PSYCHIATRY [facility] [place] [facility] Jun 13, 2024 09:30 AM AMBULATORY - MEDICINE [facility] [place] [facility] Jun 19, 2024 02:00 PM AMBULATORY - MEDICINE [facility] [place] [facility] Jun 21, 2024 01:30 PM AMBULATORY - PSYCHIATRY [facility] [place] [facility] Jun 28, 2024 02:30 PM AMBULATORY - PSYCHIATRY [facility] [place] [facility] Jul 04, 2024 11:00 AM AMBULATORY - MEDICINE [facility] [place] [facility] Jul 10, 2024 11:00 AM AMBULATORY - REHAB MEDICIN E [facility] [place] [facility] Jul 25, 2024 12:30 PM AMBULATORY - NONE [facility] [place] [facility] Jul 25, 2024 01:00 PM AMBULATORY - PSYCHIATRY [facility] [place] [facility] Lab Results: +/- 30 days of the encounter This section includes the Chemistry and Hematology Lab Results on record with [place] for the patient. Radiology Reports and Pathology Reports are provided separately, in subsequent sections. Lab Results This section contains the Chemistry/Hematology Results that were resulted 30 days before or 30 daysafter the date of the Encounter. Date/Time Source Result Type Result - Unit Interpretation Reference Range Comment Feb 16, 2024 02:28 PM [facility] [place] [facility] HEPATITIS B SURFACE ANTIBODY (HBsAb)-WH Specimen Type: SERUM No comment entered. Ordering Provider: ALEXANDR YODER Report Released Date/Time: Feb 16, 2024 01:52 PM Reporting Lab: [place] [facility] [place] [address] [address] Performing Lab: [place] [facility] [place] [facility] [address] [facility] [address] HBsAb Non Reactive Non Reactive Feb 16, 2024 02:28 PM [facility] [place] [facility] THYROID TOTAL T4 Specimen Type: SERUM No comment entered. Ordering Provider: ALEXANDR YODER Report Released Date/Time: Feb 16, 2024 02:10 PM Reporting Lab: [place] [facility] [place] [facility] [address] [facility] [address] Performing Lab: [place] [facility] [place] [facility] [address] [facility] [address] THYROID TOTAL T4 9.87 ug/dL 4.5-12.0 Feb 16, 2024 02:28 PM [facility] [place] [facility] TSH Specimen Type: SERUM No comment entered. Ordering Provider: ALEXANDR YODER Report Released Date/Time: Feb 16, 2024 02:10 PM Reporting Lab: [place] [facility] [place] [facility] [address] [facility] [address] Performing Lab: [place] [facility] [place] [facility] [address] [facility] [address] TSH 0.74 u[IU]/mL 0.35-5.00 Social History: Smoking Status (Most current) and Tobacco Use (All prior to encounter date) This section includes the most current, and the historical, smoking and tobacco- related health factors from the [place] facility where the Encounter took place. Current Smoking Status This section includes the most current smoking, or tobacco-related health factor, from the [place] facility where the Encounter took place. Date/Time Current Smoking Status Comment [facility] Apr 07, 2023 01:30 PM [facility] Tobacco Use History This section includes a history of the smoking, or tobacco-related health factors, that were collected on or before the date of the Encounter. The data comes from the [place] facility where the Encounter took place. Date/Time Smoking Status/Tobac co Use Comment Facility Apr 07, 2023 01:30 PM VA-TOBACCO QUIT 5 TO < 15 YRS [place] [facility] [place] [facility] May 07, 2022 09:30 AM VA-TOBACCO FORMER USER [place] [facility] [place] [facility] May 07, 2022 09:30 AM VA-TOBACCO QUIT 1 TO < 5 YRS [place] [facility] [place] [facility] May 15, 2021 08:45 AM VA-TOBACCO FORMER USER [place] [facility] [place] [facility] May 15, 2021 08:45 AM VA-TOBACCO QUIT 1 TO < 5 YRS [place] [facility] [place] [facility] Jun 04, 2020 10:30 AM VA-TOBACCO FORMER USER [place] [facility] [place] [facility] Jun 04, 2020 10:30 AM VA-TOBACCO QUIT < 1 YEAR [place] [facility] [place] [facility] May 23, 2019 09:36 AM VA-TOBACCO DOESNT USE WI 30 [facility] [place] [facility] May 23, 2019 09:36 AM VA-TOBACCO USE 30 YEARS OR MORE [place] [facility] [place] [facility] May 23, 2019 09:36 AM VA-TOBACCO USE ADVICE [facility] [place] [facility] May 23, 2019 09:36 AM VA-TOBACCO USE PATIENT CARE COORDINATOR NO [place] [facility] [place] [facility] May 23, 2019 09:36 AM VA-TOBACCO USE MED NO [place] [facility] [place] [facility] May 23, 2019 09:36 AM VA-TOBACCO USER EVERY DAY [place] [facility] [place] [facility] Apr 21, 2018 01:18 PM CURRENT SMOKER 1/2 pk a week [place] [facility] [place] [facility] Apr 21, 2018 01:18 PM V1-PT DECLINES REF TO TOBACCO CESS PRGM [place] [facility] [place] [facility] Apr 21, 2018 01:18 PM V1-PT DECLINES TOB ACCO CESSATION MEDS [place] [facility] [place] [facility] Apr 21, 2018 01:18 PM V1-PT THINKING ABO UT QUIT TOBACCO USE [place] [facility] [place] [facility] Oct 18, 2017 02:19 PM V1-PT NOT INTEREST ED IN QUIT TOBACCO USE [place] [facility] [place] [facility] Oct 04, 2017 01:55 PM CURRENT SMOKER .5 packs a day [place] [facility] [place] [facility] Advance Directives: All historical and current Section Date Range: From patient's date of to the date document was created. This section includes ALL of a patient's completed or amended [place] Advance and Rescinded Directives. The entries below indicate that a directive exists for the patient, but an actual copy is not included with this document. The data comes from all [place] facilities. Date Advance Directives Provider Source Feb 13, 2003 ADVANCE DIRECTIVE KAT OVIEDO [facility] Encounter Notes: All associated encounter notes This section contains the clinical notes associated to the Encounter. Date/Time Encounter Note(s) Provider Source Jan 26, 2024 10:15 AM ADDENDUM: LOCAL TITLE: Addendum STANDARD TITLE: ADDENDUM DATE OF NOTE: JAN 26, 2024@10:15:36 ENTRY DATE: JAN 26, 2024@10:15:36 AUTHOR: CAMDEN NINOIGNER: URGENCY: STATUS: COMPLETED Spoke with [place]. He says that on 01/19/24 around 11pm-12 midnight he was experiencing severe stomach cramps, fever and vomiting. He went to [facility] and had a work-up. [place] says that he receiving IV fluids and a shot for nausea. He was given a script for an anti-nausea medication but didn't fill it because he has some medication at home. [place] says that he hasn't vomited since Wednesday. He reports that his stomach feels like it's a rubber band that has been stretched as far as it can and that it's hard and bloated. says that he has been eating a bland diet- water, crackers, toast and his stomach is still aggravated and he'll experience cramping and some nausea. [place] says that he hasn't been consuming much. Denies any fever, chills, vomiting, diarrhea, dizziness or chest pain. Amor reports that he had a normal, formed, bowel movement today. Amor has an upcoming appointment with PCP on 02/15@13:30. Amor will await to see provider unless his systems worsen then he'll go to the ER (intractable nausea, vomiting, increased pain or constipation)- [facility] or [facility] ER. He says that he won't' return to [facility]. appreciative for the conversation. He will call back with any questions or concerns. /es/ CAMDEN NINO, MSN, RN, CNL PRIMARY CARE TEAM NURSE Signed: 01/26/2024 13:29 Receipt Acknowledged By: 01/31/2024 14:54 /herlinda/ JR JOSEPH Nurse Practitioner --- Original Document --- 01/26/24 CCC: CLINICAL TRIAGE: Patient Demographics Patient Name: ANDRZEJ WILKERSON Patient Primary Address: [address] [place] [id number] Patient Primary Phone: [phone] Patient : 1955 Patient Age: 68 Caller/Recipient Relation to Patient: Self Emergency Contact: ROBERTO MONTES Triage Summary Conducted triage/discussed symptoms Pain Score: 8 (Severe Pain) Chief Complaint: Abdominal Pain System WHEN: Now Nurse's Recommendation / WHEN: Now System WHERE: Emergency department Nurse's Recommendation / WHERE: ED Other Patient Disposition Patient/Caregiver agrees to plan of care: Yes Patient WHERE: ED Other Patient WHEN: Now Nursing Plan and Disposition Referred patient to higher level of care Instructed to go to Emergency Room (ER) Advised of Financial Disclaimer: Patient advised that recommendation for care provided during the call does not constitute an approval or authorization for payment by the [place] or its staff. Patient advised to report a community ED visit to the [facility] Office of Community Care at within 72 hours. Other course(s) of action Generated msg to PACT/Provider Provided guidance for worsening symptoms: *Caller/Patient* advised to call facilities [place] Clinical Contact Center or seek immediate medical attention for new or worsening symptoms Nurse Summary Nurse Summary: called said he went to local ER on 01/20/2024 for abdominal pain, he has x-ray, CT scan and was given IVF. 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 reports still having abdominal pain across his abdomen, with nausea, and worsening pain with eating. Denies any chest pain, vomiting, fever, shortness of breath. BP 157/100, HR 80. advised to please seek medical care now at the ER for further evaluation of his symptoms. said he will not go back to that hospital. He will be going to [facility] for evalaution. He has phone number for critical access hospital care and informed to call with in 72 hours of receiving non [place] emergency medical care. Please follow up with this . Clinical Contact Center Codes Clinic/Location: V1 C[facility] PHONE CCC RN TXCC Triage Complete Triage Date: 01/26/2024, 03:04 AM Triage Note: Phone Triage 26 Jan 2024 07:02:43 +0000 [facility] Demographics 68 y/o Male Results CC: Abdominal Pain Software suggested: Now Software suggested follow-up location: Emergency department Values and Measures SBP: 157 mmHg Pulse: 80 bpm Duration of CC: 11 Days Positive Responses HPI: abdominal pain, severe PMH: hypertension Negative Responses Denies: HPI: abdominal pain, left lower quadrant Denies: HPI: abdominal pain, localized to upper abdomen Denies: HPI: abdominal pain, right lower quadrant Denies: HPI: abdominal pain, right upper quadrant Denies: HPI: chest pain Denies: HPI: flank or back pain Denies: HPI: lightheadedness, orthostatic Denies: HPI: syncope, with abdominal pain Denies: HPI: vomiting Denies: HPI: weakness, unable to stand Denies: HPI: weakness, with diaphoresis Denies: PMH: abdominal aortic aneurysm Denies: PMH: kidney stone [place] Education Verbal Education Provided: Based on your responses, you should be treated in the emergency department. Take action: You need to see a provider now because you might need surgery. Do not eat or drink anything until you see the provider. Consider calling an ambulance. /es/ QUINTON HOOKER [facility] student counselor Signed: 01/26/2024 03:15 Receipt Acknowledged By: 01/26/2024 19:54 /es/ JR JOSEPH Nurse Practitioner 01/26/2024 10:16 /es/ CAMDEN NINO, MSN, RN, CNL PRIMARY CARE TEAM NURSE [facility] [place] [facility] Jan 26, 2024 03:14 AM RN PROGRESS NOTE: LOCAL TITLE: CCC: CLINICAL TRIAGE STANDARD TITLE: RN PROGRESS NOTE DATE OF NOTE: JAN 26, 2024@03:14:54 ENTRY DATE: JAN 26, 2024@03:14:55 AUTHOR: QUINTON OBREGONER: URGENCY: STATUS: COMPLETED CCC: CLINICAL TRIAGE Has ADDENDA Patient Demographics Patient Name: ANDRZEJ WILKERSON Patient Primary Address: [address] [place] [id number] Patient Primary Phone: [phone] Patient : 1955 Patient Age: 68 Caller/Recipient Relation to Patient: Self Emergency Contact: ROBERTO MONTES Triage Summary Conducted triage/discussed symptoms Pain Score: 8 (Severe Pain) Chief Complaint: Abdominal Pain System WHEN: Now Nurse's Recommendation / WHEN: Now System WHERE: Emergency department Nurse's Recommendation / WHERE: ED Other Patient Disposition Patient/Caregiver agrees to plan of care: Yes Patient WHERE: ED Other Patient WHEN: Now Nursing Plan and Disposition Referred patient to higher level of care Instructed to go to Emergency Room (ER) Advised of Financial Disclaimer: Patient advised that recommendation for care provided during the call does not constitute an approval or authorization for payment by the [place] or its staff. Patient advised to report a community ED visit to the [facility] Office of Community Care at within 72 hours. Other course(s) of action Generated msg to PACT/Provider Provided guidance for worsening symptoms: *Caller/Patient* advised to call facilities [place] Clinical Contact Center or seek immediate medical attention for new or worsening symptoms Nurse Summary Nurse Summary: called said he went to local ER on 01/20/2024 for abdominal pain, he has x-ray, CT scan and was given IVF. 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 [place] reports still having abdominal pain across his abdomen, with nausea, and worsening pain with eating. Denies any chest pain, vomiting, fever, shortness of breath. BP 157/100, HR 80. [place] advised to please seek medical care now at the ER for further evaluation of his symptoms. said he will not go back to that hospital. He will be going to [facility] for evalaution. He has phone number for community care and informed to call with in 72 hours of receiving non [place] emergency medical care. Please follow up with this . Clinical Contact Center Codes Clinic/Location: V1 [facility] PHONE [facility] RN TXCC Triage Complete Triage Date: 01/26/2024, 03:04 AM Triage Note: Phone Triage 26 Jan 2024 07:02:43 +0000 [facility] Demographics 68 y/o Male Results CC: Abdominal Pain Software suggested: Now Software suggested follow-up location: Emergency department Values and Measures SBP: 157 mmHg Pulse: 80 bpm Duration of CC: 11 Days Positive Responses HPI: abdominal pain, severe PMH: hypertension Negative Responses Denies: HPI: abdominal pain, left lower quadrant Denies: HPI: abdominal pain, localized to upper abdomen Denies: HPI: abdominal pain, right lower quadrant Denies: HPI: abdominal pain, right upper quadrant Denies: HPI: chest pain Denies: HPI: flank or back pain Denies: HPI: lightheadedness, orthostatic Denies: HPI: syncope, with abdominal pain Denies: HPI: vomiting Denies: HPI: weakness, unable to stand Denies: HPI: weakness, with diaphoresis Denies: PMH: abdominal aortic aneurysm Denies: PMH: kidney stone [place] Education Verbal Education Provided: Based on your responses, you should be treated in the emergency department. Take action: You need to see a provider now because you might need surgery. Do not eat or drink anything until you see the provider. Consider calling an ambulance. /herlinda/ [facility] student counselor Signed: 01/26/2024 03:15 Receipt Acknowledged By: 01/26/2024 19:54 /es/ JR JOSEPH Nurse Practitioner 01/26/2024 10:16 /es/ CAMDEN NINO, MSN, RN, CNL PRIMARY CARE TEAM NURSE 01/26/2024 ADDENDUM STATUS: COMPLETED Spoke with [place]. He says that on 01/19/24 around 11pm-12 midnight he was experiencing severe stomach cramps, fever and vomiting. He went to [facility] and had a work-up. says that he receiving IV fluids and a shot for nausea. He was given a script for an anti-nausea medication but didn't fill it because he has some medication at home. [place] says that he hasn't vomited since Wednesday. He reports that his stomach feels like it's a rubber band that has been stretched as far as it can and that it's hard and bloated. Am[place] says that he has been eating a bland diet- water, crackers, toast and his stomach is still aggravated and he'll experience cramping and some nausea. [place] says that he hasn't been consuming much. Denies any fever, chills, vomiting, diarrhea, dizziness or chest pain. [place] reports that he had a normal, formed, bowel movement today. Amor has an upcoming appointment with PCP on 02/15@13:30. [place] will await to see provider unless his systems worsen then he'll go to the ER (intractable nausea, vomiting, increased pain or constipation)- [facility] or [facility] ER. He says that he won't' return to [facility]. [place] appreciative for the conversation. He will call back with any questions or concerns. /herlinda/ CAMDEN NINO, URVASHI, RN, CNL PRIMARY CARE TEAM NURSE Signed: 01/26/2024 13:29 Receipt Acknowledged By: * AWAITING SIGNATURE * [facility]DR [facility]ER [facility]
--- OUTSIDE RECORDS SUMMARY | 2024-08-18 13:10 | XMS_ITS | Encounter Summary ---
Author Name [facility] [place] [facility] [place] [facility] [place] Address [address] [place] [address] Care Team Providers Care Metal Mover Name Role Phone ALEXANDR YODER Primary Care [...] ORTHOPAEDICS [facility] SPORTS [facility]IC[facility] Mar 23, 2023 [id number] [phone] Ezekiel WILKERSON PATIENT Selected Encounter This section includes the information on record at [place] for the Encounter. Date/Time Encounter Type Encounter Description Reason Pro vider Source January 20, 2024 10:14 AM Outpatient Encounter TELEPHONE TRIAGE IHE Encounter Template Text not used by [place] Plan of Treatment: Future Appointments (+ 6 months) and Future Tests (+/- 45 days) The Plan of Treatment section includes future care activities for the patient from all [place] treatmentfacilities. This section includes future appointments and future orders which are active, pending or scheduled. Future Appointments This section includes appointments that were scheduled to occur 6 months from the date of the Encounter, up to a maximum of 20 appointments. The data comes from all [place] treatment facilities. Appointment Date/Time Appointment Type Appointme nt Facility Name January 21, 2024 01:30 PM AMBULATORY - PSYCHIATRY [facility] Feb 16, 2024 01:30 PM AM[facility]UL[facility]ICINE [facility] [place] [facility] Feb 18, 2024 03:00 PM AMBULATORY [facility] MEDICINE [facility] [place] [facility] Mar 03, 2024 01:30 PM AMBULATORY - PS[facility]CHIATRY [facility] [place] [facility] Apr 06, 2024 08:30 AM AMBULATORY [facility] MEDICINE [facility] [place] [facility] Apr 19, 2024 02:15 PM AM[facility]ULATORY [facility] MEDICINE [facility] [place] [facility] May 05, 2024 01:30 PM AMBULATORY [facility] PS[facility]IATRY [facility] [place] [facility] Jun 13, 2024 09:30 AM AMBULATORY [facility] MEDICINE [facility] [place] [facility] Jun 19, 2024 02:00 PM AMBULATORY - MEDICINE [facility] [place] [facility] Jun 21, 2024 01:30 PM AMBULATORY - PSYCHIATRY [facility] [place] [facility] Jun 28, 2024 02:30 PM AMBULATORY - PSYCHIATRY [facility] [place] [facility] Jul 04, 2024 11:00 AM AMBULATORY [facility] MEDICINE [facility] [place] [facility] Jul 10, 2024 11:00 AM AMBULATORY - REHAB MEDICIN E [facility] [place] [facility] Lab Results: +/- 30 days [...] Range Comment Feb 16, 2024 02:28 PM [place] [facility] [place] [facility] HEPATITIS B SURFACE ANTIBODY (HBsAb)-WH Specimen Type: SERUM No comment entered. Ordering Provider: ALEXANDR OYDER Report Released Date/Time: Feb 16, 2024 01:52 PM Reporting [facility] [address] [facility] [address] Performing Lab[facility] [address] [address] HBsAb Non Reactive Non Reactive Feb 16, 2024 02:28 PM [place] [facility] [facility] THYROID TOTAL T4 Specimen Type: SERUM No comment entered. Ordering Provider: ALEXANDR YODER Report Released Date/Time: Feb 16, 2024 02:10 PM Reporting Lab: [place] [facility] [facility] [address] [facility] [address] Performing Lab: [place] [facility] [place] [facility] [address] [facility] [address] THYROID TOTAL T4 9.87 ug/dL 4.5-12.0 Feb 16, 2024 02:28 PM [place] [facility] [facility] TSH Specimen Type: SERUM No comment entered. Ordering Provider: ALEXANDR YODER Report Released Date/Time: Feb 16, 2024 02:10 PM Reporting [facility]: [facility] [place] [facility] [address] [facility] [address] Performing Lab: [facility] [address] [facility] [address] TSH 0.74 u[IU]/mL 0.35-5.00 Social History: Smoking Status (Most current) and Tobacco Use (All prior to encounter date) This section includes the most current, and the historical, smoking and tobacco- related health factors from the [place] facility where the Encounter took place. Current Smoking Status This section includes the most current smoking, or tobacco-related health factor, from the [place] facility where the Encounter took place. Date/Time Current Smoking Status Comment Artem maloney Apr 07, 2023 01:30 PM VA-TOBACCO FOR[facility]ER [facility] [place] [facility] Tobacco Use History This section includes a history of the smoking, or tobacco-related health factors, that were collected on or before the date of the Encounter. The data comes from the [place] facility where the Encounter took place. Date/Time Smoking Status/Tobac co Use Comment Facility Apr 07, 2023 01:30 PM VA-TOBACCO QUIT 5 TO < 15 YRS [facility] [place] [facility] May 07, 2022 09:30 AM VA-TOBACCO FORMER USER [place] [facility] [place] [facility] May 07, 2022 09:30 AM VA-TOBACCO QUIT 1 TO < 5 YRS [place] [facility] [place] [facility] May 15, 2021 08:45 AM VA-TOBACCO [facility] May 15, 2021 08:45 AM VA-TOBACCO QUIT 1 TO < 5 YRS [place] [facility] [place] [facility] Jun 04, 2020 10:30 AM VA-TOBACCO FORMER USER [place] [facility] Jun 04, 2020 10:30 AM VA-TOBACCO QUIT < 1 YEAR [facility] [place] [facility] May 23, 2019 09:36 AM VA-TOBACCO DOESNT USE WI 30 MIN WAKEUP [facility] May 23, 2019 09:36 AM VA-TOBACCO USE 30 YEARS OR MORE [facility] May 23, 2019 09:36 AM VA-TOBACCO USE ADVICE [facility] May 23, 2019 09:36 AM 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 [facility] May 23, 2019 09:36 AM VA-TOBACCO USE MED NO [facility] [place] [facility] May 23, 2019 09:36 AM VA-TOBACCO USER EVERY DAY [facility] [place] [place] [facility] Apr 21, 2018 01:18 PM CURRENT SMOKER 1/2 pk a week [facility] [place] [facility] Apr 21, 2018 01:18 PM V1-PT DECLINES REF TO TOBACCO CESS PRGM [facility] [place] [place] [facility] Apr 21, 2018 01:18 PM V1-PT DECLINES TOB ACCO CESSATION MEDS [facility] [place] [place] [facility] Apr 21, 2018 01:18 PM V1-PT THINKING ABO UT QUIT TOBACCO USE [facility] [place] [facility] Oct 18, 2017 02:19 PM V1-PT NOT INTEREST ED IN QUIT TOBACCO USE [facility] [place] [facility] Oct 04, 2017 01:55 PM CURRENT SMOKER .5 packs a day [facility] [place] [facility] Advance Directives: All historical and current Section Date Range: From patient's date of to the date document was created. This section includes ALL of a patient's completed or amended [place] Advance and Rescinded Directives. The entries below indicate that a directive exists for the patient, but an actual copy is not included with this document. The data comes from all [place] facilities. Date Advance Directives Provider Source Feb 13, 2003 ADVANCE DIRECTIVE KAT OVIEDO [facility] Encounter Notes: All associated encounter notes This section contains the clinical notes associated to the Encounter. Date/Time Encounter Note(s) Provider Source January 20, 2024 10:14 AM RN PROGRESS NOTE: LOCAL TITLE: CCC: CLINICAL TRIAGE STANDARD TITLE: RN PROGRESS NOTE DATE OF NOTE: JANUARY 20, 2024@10:14:30 ENTRY DATE: JANUARY 20, 2024@10:14:30 AUTHOR: OBI LUNA COSIGNER: URGENCY: STATUS: COMPLETED Patient Demographics Patient Name: ANDRZEJ WILKERSON Patient Primary Address: [address] [place] [id number] Patient Primary Phone: [phone] Patient : 1955 Patient Age: 68 Caller/Recipient Relation to Patient: Self Emergency Contact: ROBERTO MONTES Triage Summary Conducted triage/discussed symptoms Pain Score: 8 (Severe Pain) Chief Complaint: Nausea System WHEN: Now, 911 Nurse's Recommendation / WHEN: 911 System WHERE: Emergency department Nurse's Recommendation / WHERE: ED [facility] Patient Disposition Patient/Caregiver agrees to plan of care: Yes Patient WHERE: ED Other Other - Patient Where Disposition: Unsure if he will follow triage advice to call 911 Patient WHEN: Now Other - Patient When Disposition: [facility] ER Nursing Plan and Disposition Referred patient to higher level of care Instructed to go to Emergency Room (ER) Advised of Financial Disclaimer: Patient advised that recommendation for care provided during the call does not constitute an approval or authorization for payment by the [place] or its staff. Patient advised to report a community ED visit to the national Office of Community Care at within 72 hours. Other course(s) of action Generated msg to PACT/Provider Nurse Summary Nurse Summary: [place] called to report loose stool, nausea and abdominal pain 04/01. [facility] outcome for ER via 911. is agreeable to go to non-VA hospital([facility]), unsure if he will utilize 911 I can't pay for that . Agreeable to ER. He was given Community Care info including 72 hour notification. Clinical Contact Center Codes Clinic/Location: V1 CWM PHONE CCC RN Notes Notes & Information: Education on triage. [facility] outcome and ER assessment. [facility] Triage Complete Triage Date: 01/20/2024, 10:07 AM Triage Note: Phone Triage Priscilla, 20 Jan 2024 14:06:10 +0000 [facility] Demographics 68 y/o Male Results CC: Nausea Software suggested: Now, 911 Software suggested follow-up location: Emergency department Values and Measures Duration of CC: 2 Days Positive Responses HPI: abdominal pain, severe HPI: weakness, with diaphoresis Negative Responses Denies: HPI: chest pain Denies: HPI: vomiting Denies: PMH: abdominal aortic aneurysm [place] Education Verbal Education Provided: Based on your responses, you should be treated in the emergency department. Take action: You need to see a provider now because you might need emergency surgery. Do not eat or drink anything until you see the provider. Consider calling an ambulance. /herlinda/ OBI LUNA [id number] Signed: 01/20/2024 10:14 Receipt Acknowledged By: 01/20/2024 14:44 /es/ CAMDEN NINO, MSN, RN, CNL PRIMARY CARE TEAM NURSE 01/20/2024 14:43 /es/ Cathie Del Angel, textile dyer Staff Nurse OBI LUNA [facility]
--- OUTSIDE RECORDS SUMMARY | 2024-08-18 13:11 | XMS_ITS | Encounter Summary ---
Author Name [facility] [place] Address [address] [place] [address] Care Team Providers Care Avionics Installer Name Role Phone ALEXANDR YODER Primary [...] HOSPITAL ([facility]) MEDICARE ADVANTAGE HUMAN A [facility] Mar 23, 2023 [id number] [phone] Ezekiel WILKERSON PATIENT Selected Encounter This section includes the information on record at [place] for the Encounter. Date/Time Encounter Type Encounter Description Reason Pro vider Source May 26, 2024 09:41 AM Outpatient Encounter COMMUNITY CARE CONSULT IHE Encounter Template Text not used by [place] Plan of Treatment: Future Appointments (+ 6 months) and Future Tests (+/- 45 days) The Plan of Treatment section includes future care activities for the patient from all [place] treatmentfacilities. This section includes future appointments and future orders which are active, pending or scheduled. Future Appointments This section includes appointments that were scheduled to occur 6 months from the date of the Encounter, up to a maximum of 20 appointments. The data comes from all [place] treatment facilities. Appointment Date/Time Appointment Type Appointme nt Facility Name Jun 13, 2024 09:30 AM AMBULATORY - [place]ICINE [place] [facility] [place] [facility] Jun 19, 2024 02:00 PM AMBULATORY - MEDICINE [facility] [place] [facility] Jun 21, 2024 01:30 PM AMBULATORY - PSYCHIATRY [facility] [place] [facility] Jun 28, 2024 02:30 PM AMBULATORY - PSYCHIATRY [facility] [place] [facility] Jul 04, 2024 11:00 AM AMBULATORY - MEDICINE [facility] [place] [facility] Jul 10, 2024 11:00 AM AMBULATORY - REHAB MEDICIN E [facility] [place] [facility] Jul 25, 2024 12:30 PM AMBULATORY - NONE [facility] [place] [facility] Jul 25, 2024 01:00 PM AMBULATORY - PSYCHIATRY [facility] [place] [facility] Jul 31, 2024 01:00 PM AMBULATORY - REHAB MEDICIN E [facility] [place] [facility] Jul 31, 2024 02:00 PM AMBULATORY - MEDICINE [facility] [place] [facility] Aug 08, 2024 08:30 AM AMBULATORY - MEDICINE [facility] [place] [facility] Aug 08, 2024 09:30 AM AMBULATORY - NONE [facility] [place] [facility] Aug 21, 2024 02:30 PM AMBULATORY - REHAB MEDICIN E [facility] [place] [facility] Aug 22, 2024 10:00 AM AMBULATORY - MEDICINE [facility] [place] [facility] Aug 29, 2024 11:00 AM AMBULATORY - PSYCHIATRY [facility] [place] [facility] Aug 29, 2024 11:30 AM AMBULATORY - PSYCHIATRY [facility] [place] [facility] Sep 14, 2024 11:00 AM AMBULATORY - REHAB MEDICIN E [facility] [place] [facility] Oct 23, 2024 02:30 PM AMBULATORY - MEDICINE [facility] [place] [facility] Nov 01, 2024 01:30 PM AMBULATORY - MEDICINE [facility] [place] [facility] Social History: Smoking Status (Most current) and Tobacco Use (All prior to encounter date) This section includes the most current, and the historical, smoking and tobacco- related health factors from the [place] facility where the Encounter took place. Current Smoking Status This section includes the most current smoking, or tobacco-related health factor, from the [place] facility where the Encounter took place. Date/Time Current Smoking Status Comment Artem it Apr 07, 2023 01:30 PM VA-TOBACCO FORMER USER [place] [facility] [place] [facility] Tobacco Use History This section includes a history of the smoking, or tobacco-related health factors, that were collected on or before the date of the Encounter. The data comes from the [place] facility where the Encounter took place. Date/Time Smoking Status/Tobac co Use Comment Facility Apr 07, 2023 01:30 PM VA-TOBACCO QUIT 5 TO < 15 YRS [facility] [place] [facility] May 07, 2022 09:30 AM VA-TOBACCO FORMER USER [facility] [place] [facility] May 07, 2022 09:30 AM VA-TOBACCO QUIT 1 TO < 5 YRS [facility] [place] [facility] May 15, 2021 08:45 AM VA-TOBACCO FORMER USER [place] [facility] [place] [facility] May 15, 2021 08:45 AM VA-TOBACCO QUIT 1 TO < 5 YRS [place] [facility] [place] [facility] Jun 04, 2020 10:30 AM VA-TOBACCO FORMER USER [place] [facility] [place] [facility] Jun 04, 2020 10:30 AM VA-TOBACCO QUIT < 1 YEAR [place] [facility] [place] [facility] May 23, 2019 09:36 AM VA-TOBACCO DOESNT USE WI 30 MIN WAKEUP [place] [facility] [place] [facility] May 23, 2019 09:36 AM VA-TOBACCO USE 30 YEARS OR MORE [place] [facility] [place] [place] [facility] May 23, 2019 09:36 AM VA-TOBACCO USE ADVICE [place] [facility] [facility] May 23, 2019 09:36 AM 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 [facility] [place] [facility] May 23, 2019 09:36 AM VA-TOBACCO USE MED NO [place] [facility] [place] [facility] May 23, 2019 09:36 AM VA-TOBACCO USER EVERY DAY [place] [facility] [place] [facility] Apr 21, 2018 01:18 PM CURRENT SMOKER 1/2 pk a week [facility] Apr 21, 2018 01:18 PM V1-PT DECLINES REF TO TOBACCO CESS [facility] Apr 21, 2018 01:18 PM V1-PT DECLINES TOB ACCO CESSATION MEDS [facility] Apr 21, 2018 01:18 PM V1-PT THINKING ABO UT QUIT TOBACCO USE [facility] Oct 18, 2017 02:19 PM V1-PT NOT INTEREST ED IN QUIT TOBACCO USE [facility] Oct 04, 2017 01:55 PM CURRENT SMOKER .5 packs a day [facility] Advance Directives: All historical and current Section Date Range: From patient's date of to the date document was created. This section includes ALL of a patient's completed or amended [place] Advance and Rescinded Directives. The entries below indicate that a directive exists for the patient, but an actual copy is not included with this document. The data comes from all [place] facilities. Date Advance Directives Provider Source Feb 13, 2003 ADVANCE DIRECTIVE KAT OVIEDO [facility] Encounter Notes: All associated encounter notes This section contains the clinical notes associated to the Encounter. Date/Time Encounter Note(s) Provider Source May 26, 2024 09:41 AM NONVA NOTE: LOCAL TITLE: COMMUNITY CARE-CARE COORDINATION PLAN NOTE STANDARD TITLE: NONVA NOTE DATE OF NOTE: MAY 26, 2024@09:41 ENTRY DATE: MAY 26, 2024@09:41:50 AUTHOR: AUNDREA HAMILTON COSIGNER: URGENCY: STATUS: COMPLETED called OCC RN about Urgent Care benefits. He had a letter about this but has lost it. CC RN provided Vetern with the Urgent Care number to call with questions. [phone] /es/ AUNDREA HAMILTON Community Care RN Signed: 05/26/2024 09:43 AUNDREA HAMILTON [facility]
--- OUTSIDE RECORDS SUMMARY | 2024-08-18 13:11 | XMS_ITS ---
Author Name [facility] [place] Organization [facility] [place] Address [address] [place] [address] Care Team Providers Care [employer] Workflow Consultant Name Role Phone ALEXANDR YODER Primary Care [...] LYLE (WNR) MEDICARE ADVANTAGE HUMAN A [facility] Mar 23, 2023 [id number] [phone] Ezekiel WILKERSON PATIENT Selected Encounter This section includes the information on record at [place] for the Encounter. Date/Time Encounter Type Encounter Description Reason Provider Source May 05, 2024 01:30 PM MTMS BY LIZZ NATHAN [facility] - IND ICD-10-CM F32.A Depression, unspecified RAGUINDIN,JASP ER YOAN D E Encounter Template Text not used by [place] Assessments - Encounter Diagnoses This section includes the primary and secondary diagnoses documented for the Encounter. Date/Time Primary/Secondary Diagnosis Diagnosis Name Provider Source May 05, 2024 02:07 PM PRIMARY Depression, unspecified RAGUINDIN,JASP ER YOAN D [facility] Plan of Treatment: Future Appointments (+ 6 months) and Future Tests (+/- 45 days) The Plan of Treatment section includes future care activities for the [facility]. This section includes future appointments and [...] - MEDICINE [facility] [place] [facility] Jun 19, 2024 02:00 PM AMBULATORY - MEDICINE [facility] [place] [facility] Jun 21, 2024 01:30 PM AMBULATORY - PSYCHIATRY [facility] [place] [facility] Jun 28, 2024 02:30 PM AMBULATORY - PSYCHIATRY [facility] [place] [facility] Jul 04, 2024 11:00 AM AMBULATORY - MEDICINE [facility] [place] [facility] Jul 10, 2024 11:00 AM AMBULATORY - REHAB MEDICIN E [facility] [place] [facility] Jul 25, 2024 12:30 PM AMBULATORY - NONE [facility] [place] [facility] Jul 25, 2024 01:00 PM AMBULATORY - PSYCHIATRY [facility] [place] [facility] Jul 31, 2024 01:00 PM AMBULATORY - REHAB MEDICIN E [facility] [place] [facility] Jul 31, 2024 02:00 PM AMBULATORY - MEDICINE [facility] [place] [facility] Aug 08, 2024 08:30 AM AMBULATORY - MEDICINE [facility] [place] [facility] Aug 08, 2024 09:30 AM AMBULATORY - NONE [facility] [place] [facility] Aug 21, 2024 02:30 PM AMBULATORY - REHAB MEDICIN E [facility] [place] [facility] Aug 22, 2024 10:00 AM AMBULATORY - MEDICINE [facility] [place] [facility] Aug 29, 2024 11:00 AM AMBULATORY - PSYCHIATRY [facility] [place] [facility] Aug 29, 2024 11:30 AM AMBULATORY - PSYCHIATRY [facility] [place] [facility] Sep 14, 2024 11:00 AM AMBULATORY - REHAB MEDICIN E [facility] [place] [facility] Oct 23, 2024 02:30 PM AMBULATORY - MEDICINE [place] [facility] [place] [facility] Nov 01, 2024 01:30 PM AMBULATORY - [place]ICINE [place] [facility] [place] [facility] Social History: Smoking Status (Most [...] 2023 01:30 PM VA-TOBACCO FORMER USER [place] [facility] [place] [facility] Tobacco Use History This section includes a history of the smoking, or tobacco-related health factors, that were collected on or before the date of the Encounter. The data comes from the [place] facility where the Encounter took place. Date/Time Smoking Status/Tobac co Use Comment Facility Apr 07, 2023 01:30 PM VA-TOBACCO QUIT 5 TO < 15 YRS [facility] [place] [facility] May 07, 2022 09:30 AM VA-TOBACCO FORMER USER [place] [facility] [place] [facility] May 07, 2022 09:30 AM VA-TOBACCO QUIT 1 TO < 5 YRS [facility] [place] [facility] May 15, 2021 08:45 AM VA-TOBACCO FORMER USER [place] [facility] [place] [facility] May 15, 2021 08:45 AM VA-TOBACCO QUIT 1 TO < 5 YRS [facility] [place] [facility] Jun 04, 2020 10:30 AM VA-TOBACCO FORMER USER [facility] [place] [facility] Jun 04, 2020 10:30 AM VA-TOBACCO QUIT < 1 YEAR [place] [facility] [place] [facility] May 23, 2019 09:36 AM VA-TOBACCO DOESNT USE WI 30 MIN WAKEUP [place] [facility] [place] [facility] May 23, 2019 09:36 AM VA-TOBACCO USE 30 YEARS OR MORE [place] [facility] [place] [facility] May 23, 2019 09:36 AM VA-TOBACCO USE ADVICE [place] [facility] [place] [facility] May 23, 2019 09:36 AM 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 [facility] May 23, 2019 09:36 AM VA-TOBACCO USE MED NO [facility] May 23, 2019 09:36 AM VA-TOBACCO USER EVERY DAY [facility] Apr 21, 2018 01:18 PM CURRENT SMOKER 1/2 pk a week [facility] Apr 21, 2018 01:18 PM V1-PT DECLINES REF TO TOBACCO CESS PRGM [facility] Apr 21, 2018 01:18 PM V1-PT DECLINES TOB ACCO CESSATION MEDS [facility] Apr 21, 2018 01:18 PM V1-PT THINKING ABO UT QUIT TOBACCO USE [facility] Oct 18, 2017 02:19 PM V1-PT NOT INTEREST ED IN QUIT TOBACCO USE [facility] Oct 04, 2017 01:55 PM CURRENT SMOKER .5 packs a day [facility] Advance Directives: All historical and current [...] Feb 13, 2003 ADVANCE DIRECTIVE KAT [facility]EDO [facility] Encounter Notes: All associated encounter notes This section contains the clinical notes associated to the Encounter. Date/Time Encounter Note(s) Provider Source May 05, 2024 01:18 PM PHARMACY MEDICATION MGT NOTE: LOCAL TITLE: CLINICAL PHARMACIST F/U NOTE STANDARD TITLE: PHARMACY MEDICATION MGT NOTE DATE OF NOTE: MAY 05, 2024@13:18 ENTRY DATE: MAY 05, 2024@13:18:09 AUTHOR: OLMAN AGUILAR COSIGNER: URGENCY: STATUS: COMPLETED Program: Clinical Pharmacy Provider/Medication Management Speciality: Mental Health ATTENDED BY: [X] Patient [ ] Spouse/Caregiver LENGTH OF SESSION: 30minutes -=-=-=-=-=-=-=-=-=-=-=-=-=-=- =-=-=-=-=-==-=-=-=-=-=-=-=-=- =-=-=-=-=-=-=-=-=-=-=- Name: ANDRZEJ WILKERSON : Mar ID: [id number] WHITE MALE -=-=-=-=-=-=-=-=-=-=-=-=-=-=- =-=-=-=-=-==-=-=-=-=-=-=-=-=- =-=-=-=-=-=Subjective- Hammond was last seen on [id number] with the following pharmacotherapeutic plan: [ ] No changes [X] Discontinue: prazosin [ ] Initiate: [ ] Change the following: Treating Dx(s): Depression and Anxiety INTERIM HISTORY pt reports things have not been good for me...I've been dealing with a lot of personal junk. explains recent concerns for medical health, including a CT scan which showed two spots in his lungs and concern for esophageal cancer. additionally, he has been looking towards getting a new car since his current car broke down as soon as I was about to pay it off. support provided. medications reviewed. reports he has been using prazosin as needed if he awakens from a nightmare which has been infrequent, which he has found to be beneficial. mentions that he plans to be reestablished w/ his therapist soon. -=-=-=-=-=-=-=-=-=-=-=-=-=-=- =-=-=-=-=-==-=-=-=-=-=-=-=-=- =-=-=-=-=-=-Objective- Mental Status Exam Appearance: [...] Supraventricular tachycardia 7. HTN - Hypertension (SCT [id number]) 8. Anxiety disorder 9. H/O: gastric ulcer [...] FOR WHEEZING OR SHORTNESS OF BREATH 3) AMITRIPTYLINE HCL 10MG TAB TAKE ONE TABLET BY MOUTH ACTIVE (S) AT BEDTIME FOR 14 DAYS, THEN TAKE TWO TABLETS AT BEDTIME 4) AMLODIPINE BESYLATE 10MG TAB TAKE ONE TABLET BY MOUTH ACTIVE (S) ONCE DAILY FOR BLOOD PRESSURE/HEART, DO NOT TAKE WITH GRAPEFRUIT JUICE NOTE NEW TABLET STRENGTH/INCREASED DOSE 5) ASPIRIN 325MG EC TAB TAKE ONE TABLET BY MOUTH ONCE ACTIVE (S) DAILY TO PREVENT STROKE/HEART ATTACK 6) BUSPIRONE HCL 10MG TAB TAKE TWO TABLETS BY MOUTH ACTIVE TWICE DAILY 7) CETIRIZINE HCL 10MG TAB TAKE ONE TABLET BY MOUTH ONCE ACTIVE DAILY FOR ALLERGIES 8) EPINEPHRINE (EQV-EPI-PEN) 0.3MG/0.3ML INJECT ACTIVE DIRECTED INTRAMUSCULARLY ONE TIME 9) ESCITALOPRAM OXALATE 20MG TAB TAKE ONE TABLET BY ACTIVE (S) MOUTH ONCE DAILY FOR MOOD/DEPRESSION 10) FAMOTIDINE 20MG TAB TAKE ONE TABLET BY MOUTH AT ACTIVE BEDTIME FOR STOMACH ACID 11) FLUTICAS 250/SALMETEROL 50 INHL DISK 60 INHALE 1 PUFF ACTIVE BY MOUTH EVERY 12 HOURS - RINSE MOUTH AFTER USE 12) LEVOTHYROXINE NA (SYNTHROID) 150MCG TAB TAKE ONE ACTIVE TABLET BY MOUTH EVERY MORNING 30 MINUTES BEFORE BREAKFAST FOR THYROID - TAKE ON AN EMPTY STOMACH WITH A FULL GLASS OF WATER 13) OMEPRAZOLE 20MG EC CAP TAKE ONE CAPSULE BY MOUTH ACTIVE (S) EVERY MORNING 30 MINUTES BEFORE BREAKFAST 14) PRAZOSIN HCL 1MG CAP TAKE ONE CAPSULE BY MOUTH AT ACTIVE BEDTIME Active Non-VA Medications Status 1) Non-VA OTHER CAP/TAB BY MOUTH ACTIVE 15 Total Medications Past psychiatric medications include the following: [X] Per CPRS: - buspirone (2022-current) - citalopram () - escitalopram (2022-current) - prazosin (2023-current) - sertraline (2020) - trazodone ([id number]) [ ] Per Patient: Vitals: Ht: 65 [...] following review of all active psychotropic and CONTOUR SANDER-active agents is to ensure pharmacotherapy is evaluated for safety and efficacy as they relate to behaviorial and physiological changes and outcomes Depression 2/2 to medical condtions w/ possible seasonal component - escitalopram 20mg daily - buspirone 20mg bid - prazosin 1mg hs for nightmares > noted that pt has been taking this prn following a nightmare and difficulty returning back to sleep w/ benefit; will continue to monitor PLAN 1. Pharmacotherapy [X] No changes [ [...] Reduction [ ] Other: RTC Interval: every 8-12weeks Next Apt: [id number] was provided copy writer's contact information and instructed to contact copy writer as needed for any changes to scheduling or concerns otherwise. Hammond is aware of actions to take if they feel unsafe, including calling the 's Crisis Line (#299); calling 911; or going to the nearest urgent care or emergency room. The is also aware of how to contact the clinic should the require additional services prior to the next appointment. Time spent on chart review, session, and documentation: 30minutes /es/ Olman Falcon. Elvia Aguilar Clinical Pharmacist Practitioner Signed: 05/19/2024 08:27 OLMAN AGUILAR [place] [facility]
--- OUTSIDE RECORDS SUMMARY | 2024-08-18 13:11 | XMS_ITS | Encounter Summary ---
Author Name [facility] [place] [facility] [place] Organization [place] Address [address] [place] [address] Care Team Providers Care Sanitary Chemist Name Role Phone ALEXANDR YODER Primary Care [...] MEDICARE ADVANTAGE HUMAN A INSUR [facility] Mar 23, 2023 [id number] [phone] Ezekiel WILKERSON PATIENT Selected Encounter This section includes the information on record at [place] for the Encounter. Date/Time Encounter Type Encounter Description Reason Provider Source Jun 21, 2024 01:30 PM PSYTX W PT 30 MINUTES [facility] - IND ICD-10-CM F32.A Depression, unspecified BRIA LOPEZ Chucky Encounter Template Text not used by [place] Assessments - Encounter Diagnoses This section includes the primary and secondary diagnoses documented for the Encounter. Date/Time Primary/Secondary Diagnosis Diagnosis Name Provider Source Jun 21, 2024 02:09 PM PRIMARY Depression, unspecified BRIA LOPEZ [facility] Plan of Treatment: Future Appointments (+ [...] Appointment Type Appointme nt Facility Name Jun 28, 2024 02:30 PM AMBULATORY - PS[facility]CHIATRY [facility] [place] [facility] Jul 04, 2024 11:00 AM AMBULATORY - MEDICINE [facility] [place] [facility] Jul 10, 2024 11:00 AM AMBULATORY - REHAB MEDICIN E [facility] [place] [facility] Jul 25, 2024 12:30 PM AMBULATORY - NONE [facility] [place] [facility] Jul 25, 2024 01:00 PM AMBULATORY - PSYCHIATRY [facility] [place] [facility] Jul 31, 2024 01:00 PM AMBULATORY - REHAB MEDICIN E [facility] [place] [facility] Jul 31, 2024 02:00 PM AMBULATORY - MEDICINE [facility] [place] [facility] Aug 08, 2024 08:30 AM AMBULATORY - MEDICINE [facility] [place] [facility] Aug 08, 2024 09:30 AM AMBULATORY - NONE [facility] [place] [facility] Aug 21, 2024 02:30 PM AMBULATORY - REHAB MEDICIN E [facility] [place] [facility] Aug 22, 2024 10:00 AM AMBULATORY - MEDICINE [facility] [place] [facility] Aug 29, 2024 11:00 AM AMBULATORY - PSYCHIATRY [facility] [place] [facility] Aug 29, 2024 11:30 AM AMBULATORY - PSYCHIATRY [facility] [place] [facility] Sep 14, 2024 11:00 AM AMBULATORY - REHAB MEDICIN E [facility] [place] [facility] Oct 23, 2024 02:30 PM AMBULATORY - MEDICINE [facility] [place] [facility] Nov 01, 2024 01:30 PM AMBULATORY - MEDICINE [facility] [place] [facility] Nov 28, 2024 03:00 PM AMBULATORY - MEDICINE [facility] [place] [facility] Active, Pending, and Scheduled Orders This section includes a listing of several types of active, pending, and scheduled orders, including clinic medications orders, diagnostic test orders, procedure orders and consult orders; where the start date of the order is 45 days before the date of the Encounter or 45 days after the date of theEncounter. The data comes from all [place] treatment facilities. Test Date/Time Test Type Test Details Facility Name Jul 27, 2024 12:18 PM Consult Order SURGERY/CW M OUTPT Cons Sheep [employer] [facility] [place] [facility] [place] [facility] Jul 31, 2024 02:19 PM Consult Order PHYSICAL T HERAPY/NHM OUTPT Cons [facility] [employer] [place] [facility] [facility] Social History: Smoking Status [...] took place. Date/Time Current Smoking Status Comment [facility] Apr 07, 2023 01:30 PM VA-TOBACCO FORMER USER [place] [facility] [place] [facility] Tobacco Use History This section includes a history of the smoking, or tobacco-related health factors, that were collected on or before the date of the Encounter. The data comes from the [place] facility where the Encounter took place. Date/Time Smoking Status/Tobac co Use Comment Facility Apr 07, 2023 01:30 PM VA-TOBACCO QUIT 5 TO < 15 YRS [place] [facility] [place] [facility] May [...] [facility] [place] [facility] Jun 04, 2020 10:30 AM VA-TOBACCO FORMER USER [place] [facility] [place] [facility] Jun 04, 2020 10:30 AM VA-TOBACCO QUIT < 1 YEAR [facility] May 23, 2019 09:36 AM VA-TOBACCO DOESNT USE WI 30 MIN WAKEUP [facility] May 23, 2019 09:36 AM VA-TOBACCO USE 30 YEARS OR MORE [facility] May 23, 2019 09:36 AM VA-TOBACCO USE ADVICE [facility] May 23, 2019 09:36 AM 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 Date/Time Encounter Note(s) Provider Source Jun 21, 2024 01:57 PM PSYCHOLOGY NOTE: LOCAL TITLE: PSYCHOLOGY NOTE STANDARD TITLE: PSYCHOLOGY NOTE DATE OF NOTE: JUN 21, 2024@13:57 ENTRY DATE: JUN 21, 2024@13:57:54 AUTHOR: BRIA LOPEZ COSIGNER: URGENCY: STATUS: COMPLETED Date of session: May Duration of session: 30 Diagnosis: Depression Presenting Problem ([place] report): First visit since I got back to the office. Says he's doing better: is now on a committee at his residence that keeps him more socially active, and, as expected, this seems to agree with him. Particularly friendly with a couple of neighbors, and has an active texting relationship with Nadege, who's still in a trailer waiting to get the house repair finished from last year's frozen pipes. Course of Session: Says he's OK medically, still engaged in his perennial effort to lose weight. Doctors are watching a couple of areas. He was overly home bound for a couple of months after his truck . Now has a new vehicle that he likes and can afford. He notes some drop in mood when he's home for the night, and that fits with the hypothesized beneftis of social contact. He agrees, although he used to say he couldn't tolerate contact. Feels the committee work has helped him get more comfortable. Specific mental health/clinical interventions: Supportive meeting Mental Status/Clinical Impression: 1. Appearance (grooming, attire, apparent age) within normal limits: delusions): Yes 2. Thought content was organized and goal directed: Yes 3. Speech was coherent and unimpaired: Yes 4. Affect was appropriate and unremarkable: Cheerful 5. Demeanor was calm, with no signs of agitation or restlessness: Yes 6. Problems with sleep or appetite reported: No 7. Psychosis (hallucinations or Delusions: No Client's response to interventions: Plans, next steps, and/or clinical decisions: Date of next planned contact: /herlinda/ BRIA LOPEZ, PhD Clinical Psychologist Signed: 06/21/2024 14:10 BRIA LOPEZ [place] [facility]
--- OUTSIDE RECORDS SUMMARY | 2024-08-18 13:11 | XMS_ITS ---
Author Name [place] Address [address] [place] [address] Care Team Providers Care Varitype Operator Name Role Phone ALEXANDR YODER Primary [...] Name Patient's Relationship to Policy [place] [employer] [facility] (WNR) MEDICARE ADVANTAGE HUMAN A [facility] Mar 23, 2023 [id number] [phone] Ezekiel WILKERSON PATIENT Selected Encounter This section includes the information on record at [place] for the Encounter. Date/Time Encounter Type Encounter Description Reason Pro vider Source May 22, 2024 09:05 AM Outpatient Encounter [facility] IHE Encounter Template Text not used by [place] Plan of Treatment: Future Appointments (+ 6 months) and Future Tests (+/- 45 days) The Plan of Treatment section includes future care activities for the patient from all [place] treatmentfacilities. This section includes future appointments and future orders which are active, pending or scheduled. Future Appointments This section includes appointments that were scheduled to occur 6 months from the date of the Encounter, up to a maximum of 20 appointments. The data comes from all [place] treatment facilities. Appointment Date/Time Appointment Type Appointme nt Facility Name Jun 13, 2024 09:30 AM AM[facility]ULATORY [facility]ICINE [facility] [place] [facility] Jun 19, 2024 02:00 PM AMBULATORY [facility] MEDICINE [facility] [place] [facility] Jun 21, 2024 01:30 PM AMBULATORY - PSYCHIATRY [facility] [place] [facility] Jun 28, 2024 02:30 PM AMBULATORY - PSYCHIATRY [facility] [place] [facility] Jul 04, 2024 11:00 AM AMBULATORY - MEDICINE [facility] [place] [facility] Jul 10, 2024 11:00 AM AMBULATORY - REHAB MEDICIN E [facility] [place] [facility] Jul 25, 2024 12:30 PM AMBULATORY - NONE [facility] [place] [facility] Jul 25, 2024 01:00 PM AMBULATORY - PSYCHIATRY [facility] [place] [facility] Jul 31, 2024 01:00 PM AMBULATORY - REHAB MEDICIN E [facility] [place] [facility] Jul 31, 2024 02:00 PM AMBULATORY - MEDICINE [facility] [place] [facility] Aug 08, 2024 08:30 AM AMBULATORY - MEDICINE [facility] [place] [facility] Aug 08, 2024 09:30 AM AMBULATORY - NONE [facility] [place] [facility] Aug 21, 2024 02:30 PM AMBULATORY - REHAB MEDICIN E [facility] [place] [facility] Aug 22, 2024 10:00 AM AMBULATORY - MEDICINE [facility] [place] [facility] Aug 29, 2024 11:00 AM AMBULATORY - PSYCHIATRY [facility] [place] [facility] Aug 29, 2024 11:30 AM AMBULATORY - PSYCHIATRY [facility] [place] [facility] Sep 14, 2024 11:00 AM AMBULATORY - REHAB MEDICIN E [facility] [place] [facility] Oct 23, 2024 02:30 PM AMBULATORY - MEDICINE [facility] [place] [facility] Nov 01, 2024 01:30 PM AMBULATORY - MEDICINE [facility] [place] [facility] Social History: Smoking Status (Most current) and Tobacco Use (All prior to encounter date) This section includes the most current, and the historical, smoking and tobacco- related health factors from the [facility] facility where the Encounter took place. Current Smoking Status This section includes the most current smoking, or tobacco-related health factor, from the [place] facility where the Encounter took place. Date/Time Current Smoking Status Comment Facil it Apr 07, 2023 01:30 PM VA-TOBACCO FORMER USER [place] [facility] [place] [facility] Tobacco Use History This section includes a history of the smoking, or tobacco-related health factors, that were collected on or before the date of the Encounter. The data comes from the [place] facility where the Encounter took place. Date/Time Smoking Status/Tobac co Use Comment Facility Apr 07, 2023 01:30 PM VA-TOBACCO QUIT 5 TO < 15 YRS [facility] [place] [facility] May 07, 2022 09:30 AM VA-TOBACCO FORMER USER [facility] [place] [facility] May 07, 2022 09:30 AM VA-TOBACCO QUIT 1 TO < 5 YRS [facility] [place] [facility] May 15, 2021 08:45 AM VA-TOBACCO FORMER USER [facility] [place] [facility] May 15, 2021 08:45 AM VA-TOBACCO QUIT 1 TO < 5 YRS [facility] [place] [facility] Jun 04, 2020 10:30 AM VA-TOBACCO FORMER USER [facility] [place] [facility] Jun 04, 2020 10:30 AM VA-TOBACCO QUIT < 1 YEAR [facility] [place] [facility] May 23, 2019 09:36 AM VA-TOBACCO DOESNT USE WI 30 MIN WAKEUP [place] [facility] [place] [facility] May 23, 2019 09:36 AM VA-TOBACCO USE 30 YEARS OR MORE [facility] [place] [facility] May 23, 2019 09:36 AM VA-TOBACCO USE ADVICE [facility] [place] [facility] May 23, 2019 09:36 AM 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 [facility] [place] [facility] May 23, 2019 09:36 AM VA-TOBACCO USE MED NO [facility] [place] [facility] May 23, 2019 09:36 AM VA-TOBACCO USER EVERY DAY [facility] [place] [facility] Apr 21, 2018 01:18 PM CURRENT SMOKER 1/2 pk a week [facility] [place] [facility] Apr 21, 2018 01:18 PM V1-PT DECLINES REF TO TOBACCO CESS [facility] Apr 21, 2018 01:18 PM V1-PT DECLINES TOB ACCO CESSATION MEDS [facility] Apr 21, 2018 01:18 PM V1-PT THINKING ABO UT QUIT TOBACCO USE [facility] Oct 18, 2017 02:19 PM V1-PT NOT INTEREST ED IN QUIT TOBACCO USE [facility] Oct 04, 2017 01:55 PM CURRENT SMOKER .5 packs a day [facility] Advance Directives: All historical and current Section Date Range: From patient's date of to the date document was created. This section includes ALL of a patient's completed or amended [place] Advance and Rescinded Directives. The entries below indicate that a directive exists for the patient, but an actual copy is not included with this document. The data comes from all [place] facilities. Date Advance Directives Provider Source Feb 13, 2003 ADVANCE DIRECTIVE KAT OVIEDO [facility] Encounter Notes: All associated encounter notes This section contains the clinical notes associated to the Encounter. Date/Time Encounter Note(s) Provider Source May 22, 2024 09:05 AM ADMINISTRATIVE NOT E: LOCAL TITLE: ADMINISTRATIVE NOTE STANDARD TITLE: ADMINISTRATIVE NOTE DATE OF NOTE: MAY 22, 2024@09:05 ENTRY DATE: MAY 22, 2024@09:06:07 AUTHOR: MANUEL EMANUEL EXP COSIGNER: URGENCY: STATUS: COMPLETED [employer] received a voicemail from [facility] to CX appointment on 05/23 with Bobby due to transportation issues. Left a call back of [phone] to RS. /herlinda/ MANUEL EMANUEL CAMPAIGN DEVELOPER Signed: 05/22/2024 09:10 Receipt Acknowledged By: 05/22/2024 10:29 /herlinda/ MAUREEN RAMIREZ ADVANCED CAMPAIGN DEVELOPER MANUEL EMANUEL [facility]
--- OUTSIDE RECORDS SUMMARY | 2024-08-18 13:11 | XMS_ITS ---
Author Name [place] Address [address] [place] [address] Care Team Providers Care Dairy Laboratory Technician Name Role Phone ALEXANDR YODER Primary [...] Name Patient's Relationship to Policy [place] [employer] [facility] (WNR) MEDICARE ADVANTAGE HUMAN A INSUR ANCE [facility] Mar 23, 2023 [id number] [phone] Ezekiel WILKERSON PATIENT Selected Encounter This section includes the information on record at [place] for the Encounter. Date/Time Encounter Type Encounter Description Reason Pro vider Source May 01, 2024 01:34 PM Outpatient Encounter ADMIN PAT ACTIVTIES (MASNONCT) IHE Encounter Template Text not used by [place] Plan of Treatment: Future Appointments (+ 6 months) and Future Tests (+/- 45 days) The Plan of Treatment section includes future care activities for the patient from all [place] treatmentfacilities. This section includes future appointments and future orders which are active, pending or scheduled. Future Appointments This section includes appointments that were scheduled to occur 6 months from the date of the Encounter, up to a maximum of 20 appointments. The data comes from all [place] treatment facilities. Appointment Date/Time Appointment Type Appointme nt Facility Name May 05, 2024 01:30 PM AMBULATORY - PS[facility]CHIATRY [facility] [place] [facility] Jun 13, 2024 09:30 AM AMBULATORY - MEDICINE [facility] [place] [facility] Jun 19, 2024 02:00 PM AMBULATORY - MEDICINE [facility] [place] [facility] Jun 21, 2024 01:30 PM AMBULATORY - PSYCHIATRY [facility] [place] [facility] Jun 28, 2024 02:30 PM AMBULATORY - PSYCHIATRY [facility] [place] [facility] Jul 04, 2024 11:00 AM AMBULATORY - MEDICINE [facility] [place] [facility] Jul 10, 2024 11:00 AM AMBULATORY - REHAB MEDICIN E [facility] [place] [facility] Jul 25, 2024 12:30 PM AMBULATORY - NONE [facility] [place] [facility] Jul 25, 2024 01:00 PM AMBULATORY - PSYCHIATRY [facility] [place] [facility] Jul 31, 2024 01:00 PM AMBULATORY - REHAB MEDICIN E [facility] [place] [facility] Jul 31, 2024 02:00 PM AMBULATORY - MEDICINE [facility] [place] [facility] Aug 08, 2024 08:30 AM AMBULATORY - MEDICINE [facility] [place] [facility] Aug 08, 2024 09:30 AM AMBULATORY - NONE [facility] [place] [facility] Aug 21, 2024 02:30 PM AMBULATORY - REHAB MEDICIN E [facility] [place] [facility] Aug 22, 2024 10:00 AM AMBULATORY - MEDICINE [facility] [place] [facility] Aug 29, 2024 11:00 AM AMBULATORY - PSYCHIATRY [facility] [place] [facility] Aug 29, 2024 11:30 AM AMBULATORY - PSYCHIATRY [facility] [place] [facility] Sep 14, 2024 11:00 AM AMBULATORY - REHAB MEDICIN E [facility] [place] [facility] Oct 23, 2024 02:30 PM AMBULATORY - MEDICINE [facility] [place] [facility] Social History: Smoking Status (Most current) and [...] < 15 YRS [place] [facility] [place] [facility] Tobacco Use History This section includes a history of the smoking, or tobacco-related health factors, that were collected on or before the date of the Encounter. The data comes from the [place] facility where the Encounter took place. Date/Time Smoking Status/Tobac co Use Comment Facility Apr 07, 2023 01:30 PM VA-TOBACCO QUIT 5 TO < 15 YRS [facility] [place] [facility] May 07, 2022 09:30 AM VA-TOBACCO FORMER USER [facility] [place] [facility] May 07, 2022 09:30 AM VA-TOBACCO QUIT 1 TO < 5 YRS [place] [facility] [place] [facility] May 15, 2021 08:45 AM VA-TOBACCO FORMER USER [place] [facility] [place] [facility] May 15, 2021 08:45 AM VA-TOBACCO QUIT 1 TO < 5 YRS [place] [facility] [place] [facility] Jun 04, 2020 10:30 AM VA-TOBACCO FORMER USER [place] [facility] [place] [facility] Jun 04, 2020 10:30 AM VA-TOBACCO QUIT < 1 YEAR [place] [facility] [place] [facility] May 23, 2019 09:36 AM VA-TOBACCO DOESNT USE WI 30 MIN WAKEUP [place] [facility] [place] [facility] May 23, 2019 09:36 AM VA-TOBACCO USE 30 YEARS OR MORE [place] [facility] [place] [facility] May 23, 2019 09:36 AM VA-TOBACCO USE ADVICE [place] [facility] [place] [facility] May 23, 2019 09:36 AM VA-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 Date/Time Encounter Note(s) Provider Source May 01, 2024 01:34 PM PHARMACY NOTE: LOCAL TITLE: V1 PHARMACY CUSTOMER CARE MEDICATION RENEWAL STANDARD TITLE: PHARMACY NOTE DATE OF NOTE: MAY 01, 2024@13:34 ENTRY DATE: MAY 01, 2024@13:34:37 AUTHOR: FERNANDO ROSADO EXP COSIGNER: URGENCY: STATUS: COMPLETED Date: Apr Division: [place] Pt referred by Pharmacy Call Center for medication renewal: Non-controlled/maintenance medication Medications requested: [id number] CETIRIZINE HCL 10MG TAB [id number] ASPIRIN 325MG EC TAB Defer to primary care provider To be mailed . Please review and renew if appropriate. *This note was generated by [facility] Pharmacy Customer Care. If you have any questions or need assistance, do not contact this author. Please refer all questions to your local, on-site pharmacy departments. /herlinda/ FERNANDO ALONZO, apiculturist Seater Grinder, MS/Pharmacy Customer Care Signed: 05/01/2024 13:35 Receipt Acknowledged By: 05/02/2024 13:13 /es/ JR JOSEPH Nurse Practitioner 05/01/2024 13:44 /es/ Olman Aguilar, PharmD Clinical Pharmacist Practitioner FERNANDO ROSADO [facility]
--- OUTSIDE RECORDS SUMMARY | 2024-08-18 13:11 | XMS_ITS ---
Author Name [place] Address [address] [place] [address] Care Team Providers Care Shake Feeder Name Role Phone ALEXANDR YODER Primary Care [...] Name Patient's Relationship to Policy [place] [employer] [facility] (WNR) MEDICARE ADVANTAGE HUMAN A INSUR ANCE [facility] Mar 23, 2023 [id number] [phone] Ezekiel WILKERSON PATIENT Selected Encounter This section includes the information on record at [place] for the Encounter. Date/Time Encounter Type Encounter Description Reason Pro vider Source Apr 06, 2024 12:00 PM Outpatient Encounter COMMUNITY CARE [...] Appointment Type Appointme nt Facility Name Apr 19, 2024 02:15 PM AMBULATORY - [place]ICINE [place] [facility] [place] [facility] May 05, 2024 01:30 PM AMBULATORY - PSYCHIATRY [facility] [place] [facility] Jun 13, 2024 09:30 AM AMBULATORY - MEDICINE [facility] [place] [facility] Jun 19, 2024 02:00 PM AMBULATORY - MEDICINE [facility] [place] [place] [facility] Jun 21, 2024 01:30 PM AMBULATORY - PSYCHIATRY [facility] [place] [facility] Jun 28, 2024 02:30 PM AMBULATORY - PSYCHIATRY [facility] [place] [facility] Jul 04, 2024 11:00 AM AMBULATORY - MEDICINE [facility] [place] [facility] Jul 10, 2024 11:00 AM AMBULATORY - REHAB MEDICIN E [facility] [place] [facility] Jul 25, 2024 12:30 PM AMBULATORY - NONE [facility] [place] [facility] Jul 25, 2024 01:00 PM AMBULATORY - PSYCHIATRY [facility] [place] [facility] Jul 31, 2024 01:00 PM AMBULATORY - REHAB MEDICIN E [facility] [place] [facility] Jul 31, 2024 02:00 PM AMBULATORY - MEDICINE [facility] [place] [place] [facility] Aug 08, 2024 08:30 AM AMBULATORY - MEDICINE [facility] [place] [facility] Aug 08, 2024 09:30 AM AMBULATORY - NONE [facility] [place] [facility] Aug 21, 2024 02:30 PM AMBULATORY - REHAB MEDICIN E [facility] [place] [facility] Aug 22, 2024 10:00 AM AMBULATORY - MEDICINE [facility] [place] [place] [facility] Aug 29, 2024 11:00 AM AMBULATORY - PSYCHIATRY [facility] [place] [facility] Aug 29, 2024 11:30 AM AMBULATORY - PSYCHIATRY [facility] [place] [facility] Sep 14, 2024 11:00 AM AMBULATORY - REHAB MEDICIN E [facility] [place] [facility] Social History: Smoking Status (Most current) and [...] 07, 2023 01:30 PM VA-TOBACCO FORMER USER [place] [facility] [place] [facility] Tobacco Use History This section includes a history of the smoking, or tobacco-related health factors, that were collected on or before the date of the Encounter. The data comes from the [place] facility where the Encounter took place. Date/Time Smoking Status/Tobac co Use Comment Facility Apr 07, 2023 01:30 PM VA-TOBACCO QUIT 5 TO < 15 YRS [facility] [place] [facility] May 07, 2022 09:30 AM VA-TOBACCO FORMER USER [facility] [place] [facility] May 07, 2022 09:30 AM VA-TOBACCO QUIT 1 TO < 5 YRS [place] [facility] [place] [facility] May 15, 2021 08:45 AM VA-TOBACCO FORMER USER [place] [facility] [place] [facility] May 15, 2021 08:45 AM VA-TOBACCO QUIT 1 TO < 5 YRS [place] [facility] [place] [facility] Jun 04, 2020 10:30 AM VA-TOBACCO FORMER USER [place] [facility] [place] [facility] Jun 04, 2020 10:30 AM VA-TOBACCO QUIT < 1 YEAR [place] [facility] [place] [place] [facility] May 23, 2019 09:36 AM VA-TOBACCO DOESNT USE WI 30 MIN WAKEUP [place] [facility] [place] [facility] May 23, 2019 09:36 AM VA-TOBACCO USE 30 YEARS OR MORE [place] [facility] [facility] May 23, 2019 09:36 AM VA-TOBACCO USE ADVICE [place] [facility] [place] [place] [facility] May 23, 2019 09:36 AM VA-TOBACCO USE COMMUNITY 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 NO [facility] [place] [facility] May 23, 2019 09:36 AM VA-TOBACCO USE MED NO [place] [facility] [place] [facility] May 23, 2019 09:36 AM VA-TOBACCO USER EVERY DAY [place] [facility] [place] [facility] Apr 21, 2018 01:18 PM CURRENT SMOKER 1/2 pk a week [place] [facility] Apr 21, 2018 01:18 PM V1-PT [facility] Apr 21, 2018 01:18 PM V1-PT DECLINES TOB ACCO CESSATION MEDS [facility] Apr 21, 2018 01:18 PM V1-PT THINKING ABO UT QUIT TOBACCO USE [facility] Oct 18, 2017 02:19 PM V1-PT NOT INTEREST ED IN QUIT TOBACCO USE [facility] Oct 04, 2017 01:55 PM CURRENT SMOKER .5 packs a day [facility] Advance Directives: All historical and current [...] the Encounter. Date/Time Encounter Note(s) Provider Source Apr 06, 2024 12:00 PM NONVA CONSULT: LOCAL TITLE: COMMUNITY CARE-CONSULT RESULT NOTE STANDARD TITLE: NONVA CONSULT DATE OF NOTE: APR 06, 2024@12:00 ENTRY DATE: MAY 01, 2024@14:51:21 AUTHOR: HENRY LAWS EXP COSIGNER: URGENCY: STATUS: COMPLETED VistA Imaging - Scanned Document SCANNED DOCUMENT SIGNATURE NOT REQUIRED Electronically Filed: 05/01/2024 by: HENRY LAWS GYRO COMPASS TESTER HENRY LAWS [facility]
--- OUTSIDE RECORDS SUMMARY | 2024-08-18 13:11 | XMS_ITS | Encounter Summary ---
Author Name [facility] [place] Address [address] [place] [address] Care Team Providers Care Station Helper Name Role Phone ALEXANDR YODER Primary [...] Name Patient's Relationship to Policy [place] [facility] ([place]NR) MEDICARE ADVANTAGE HUMAN A [facility] Mar 23, 2023 [id number] [phone] Ezekiel WILKERSON PATIENT Selected Encounter This section includes the information on record at [place] for the Encounter. Date/Time Encounter Type Encounter Description Reason Pro vider Source Apr 27, 2024 12:00 PM Outpatient Encounter COMMUNITY CARE CONSULT E Encounter Template Text not used by [place] Plan of Treatment: Future Appointments (+ 6 months) and Future Tests (+/- 45 days) The Plan of Treatment section includes future care activities for the patient from all [place] treatmentfacilities. This section includes future appointments and future orders which are active, pending or scheduled. Future Appointments This section includes appointments that were scheduled to occur 6 months from the date of the Encounter, up to a maximum of 20 appointments. The data comes from all [place] treatment facilities. Appointment Date/Time Appointment Type Appointme nt Facility Name May 05, 2024 01:30 PM AMBULATORY - PSYCHIATRY [facility] Jun 13, 2024 09:30 AM AM[facility]UL[facility]ORY [facility]IC[facility] [place] [facility] Jun 19, 2024 02:00 PM AMBULATORY [facility] MEDICINE [facility] [place] [facility] Jun 21, 2024 01:30 PM AMBULATORY - PS[facility]IATRY [facility] [place] [facility] Jun 28, 2024 02:30 PM AMBULATORY - PS[facility]CHIATRY [facility] [place] [facility] Jul 04, 2024 11:00 AM AMBULATORY [facility] MEDICINE [facility] [place] [facility] Jul 10, 2024 11:00 AM AMBULATORY - REHAB MEDICIN E [facility] [place] [facility] Jul 25, 2024 12:30 PM AMBULATORY - NONE [facility] [place] [facility] Jul 25, 2024 01:00 PM AMBULATORY - PSYCHIATRY [facility] [place] [facility] Jul 31, 2024 01:00 PM AMBULATORY - REHAB MEDICIN E [facility] [place] [facility] Jul 31, 2024 02:00 PM AMBULATORY - MEDICINE [facility] [place] [facility] Aug 08, 2024 08:30 AM AMBULATORY - MEDICINE [facility] [place] [facility] Aug 08, 2024 09:30 AM AMBULATORY - NONE [facility] [place] [facility] Aug 21, 2024 02:30 PM AMBULATORY - REHAB MEDICIN E [facility] [place] [facility] Aug 22, 2024 10:00 AM AMBULATORY - MEDICINE [facility] [place] [facility] Aug 29, 2024 11:00 AM AMBULATORY - PSYCHIATRY [facility] [place] [facility] Aug 29, 2024 11:30 AM AMBULATORY - PS[facility]CHIATRY [facility] [place] [facility] Sep 14, 2024 11:00 AM AMBULATORY - REHAB MEDICIN E [facility] [place] [facility] Oct 23, 2024 02:30 PM AMBULATORY - MEDICINE [facility] [place] [facility] Social History: Smoking Status (Most current) and Tobacco Use (All prior to encounter date) This section includes the most current, and the historical, smoking and tobacco- related health factors from the [facility] facility where the Encounter took place. Current Smoking Status This section includes the most current smoking, or tobacco-related health factor, from the [place] facility where the Encounter took place. Date/Time Current Smoking Status Comment Artem it Apr 07, 2023 01:30 PM VA-TOBACCO FORMER USER [place] [facility] [place] [facility] Tobacco Use History This section includes a history of the smoking, or tobacco-related health factors, that were collected on or before the date of the Encounter. The data comes from the [place] facility where the Encounter took place. Date/Time Smoking Status/Tobac co Use Comment Facility Apr 07, 2023 01:30 PM VA-TOBACCO QUIT 5 TO < 15 YRS [facility] [place] [facility] May 07, 2022 09:30 AM VA-TOBACCO FORMER USER [facility] [place] [facility] May 07, 2022 09:30 AM VA-TOBACCO QUIT 1 TO < 5 YRS [facility] [place] [facility] May 15, 2021 08:45 AM VA-TOBACCO FORMER USER [place] [facility] [place] [facility] May 15, 2021 08:45 AM VA-TOBACCO QUIT 1 TO < 5 YRS [place] [facility] [place] [facility] Jun 04, 2020 10:30 AM VA-TOBACCO FORMER USER [place] [facility] [place] [facility] Jun 04, 2020 10:30 AM VA-TOBACCO QUIT < 1 YEAR [place] [facility] [place] [facility] May 23, 2019 09:36 AM VA-TOBACCO DOESNT USE [place] 30 MIN WAKEUP [place] [facility] [place] [facility] May 23, 2019 09:36 AM VA-TOBACCO USE 30 YEARS OR MORE [place] [facility] [place] [facility] May 23, 2019 09:36 AM VA-TOBACCO USE ADVICE [place] [facility] [place] [facility] May 23, 2019 09:36 AM VA-TOBACCO USE 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 The entries below indicate that a directive exists for the patient, but an actual copy is not included with this document. The data comes from all [place] facilities. Date Advance Directives Provider Source Feb 13, 2003 ADVANCE DIRECTIVE KAT OVIEDO [facility] Encounter Notes: All associated encounter notes This section contains the clinical notes associated to the Encounter. Date/Time Encounter Note(s) Provider Source Apr 27, 2024 12:00 PM NONVA CONSULT: LOCAL TITLE: COMMUNITY CARE-CONSULT RESULT NOTE STANDARD TITLE: NONVA CONSULT DATE OF NOTE: APR 27, 2024@12:00 ENTRY DATE: MAY 19, 2024@08:41:38 AUTHOR: HENRY LAWS EXP COSIGNER: URGENCY: STATUS: COMPLETED VistA Imaging - Scanned Document SCANNED DOCUMENT SIGNATURE NOT REQUIRED Electronically Filed: 05/19/2024 by: HENRY LAWS PHLEBOTOMY INSTRUCTOR HENRY LAWS [facility]
--- OUTSIDE RECORDS SUMMARY | 2024-08-18 13:11 | XMS_ITS ---
Author Name [facility] [place] Address [address] [place] [id number] Care Team Providers Care Doctor'S Assistant Name Role Phone ALEXANDR YODER Primary Care [...] HOSPITAL ([place]NR) MEDICARE ADVANTAGE HUMAN A [facility] Mar 23, 2023 [id number] [phone] Ezekiel WILKERSON PATIENT Selected Encounter This section includes the information on record at [place] for the Encounter. Date/Time Encounter Type Encounter Description Reason Provider Source Jun 13, 2024 09:30 AM OFF/OP EST DECEMBER X REQ PHY/Q PRIMARY CARE/MEDICINE ICD-10-CM Z23 Encounter for immunization KYA LAROSE [facility] Encounter Template Text not used by [place] Assessments - Encounter Diagnoses This section includes the primary and secondary diagnoses documented for the Encounter. Date/Time Primary/Secondary Diagnosis Diagnosis Name Provider Source Jun 13, 2024 10:01 AM PRIMARY Encounter for immunization KYA LAROSE [facility] [place] [facility] Plan of Treatment: Future Appointments (+ 6 months) and Future Tests (+/- 45 days) The Plan of Treatment section includes future care activities for the [facility] This section includes future appointments and future orders which are active, pending or scheduled. Future Appointments This section includes appointments that were scheduled to occur 6 months from the date of the Encounter, up to a maximum of 20 appointments. The data comes from all [place] treatment facilities. Appointment Date/Time Appointment Type Appointme nt Facility Name Jun 19, 2024 02:00 PM AMBULATORY - MEDICINE [facility] [place] [facility] Jun 21, 2024 01:30 PM AMBULATORY - PSYCHIATRY [facility] [place] [facility] Jun 28, 2024 02:30 PM AMBULATORY - PSYCHIATRY [facility] [place] [facility] Jul 04, 2024 11:00 AM AMBULATORY - MEDICINE [facility] [place] [facility] Jul 10, 2024 11:00 AM AMBULATORY - REHAB MEDICIN E [facility] [place] [facility] Jul 25, 2024 12:30 PM AMBULATORY - NONE [facility] [place] [facility] Jul 25, 2024 01:00 PM AMBULATORY - PSYCHIATRY [facility] [place] [facility] Jul 31, 2024 01:00 PM AMBULATORY - REHAB MEDICIN E [facility] [place] [facility] Jul 31, 2024 02:00 PM AMBULATORY - MEDICINE [facility] [place] [facility] Aug 08, 2024 08:30 AM AMBULATORY - MEDICINE [facility] [place] [facility] Aug 08, 2024 09:30 AM AMBULATORY - NONE [facility] [place] [facility] Aug 21, 2024 02:30 PM AMBULATORY - REHAB MEDICIN E [facility] [place] [facility] Aug 22, 2024 10:00 AM AMBULATORY - MEDICINE [facility] [place] [facility] Aug 29, 2024 11:00 AM AMBULATORY - PSYCHIATRY [facility] [place] [facility] Aug 29, 2024 11:30 AM AMBULATORY - PSYCHIATRY [facility] [place] [facility] Sep 14, 2024 11:00 AM AMBULATORY - REHAB MEDICIN E [facility] [place] [facility] Oct 23, 2024 02:30 PM AMBULATORY - MEDICINE [facility] [place] [facility] Nov 01, 2024 01:30 PM AMBULATORY - MEDICINE [facility] Nov 28, 2024 03:00 PM AMBULATORY - MEDICINE [facility] Active, Pending, and Scheduled Orders This section includes a listing of several types of active, pending, and scheduled orders, including clinic medications orders, diagnostic test orders, procedure orders and consult orders; where the start date of the order is 45 days before the date of the Encounter or 45 days after the date of theEncounter. The data comes from all [place] treatment facilities. Test Date/Time Test Type Test Details Facility Name Jul 27, 2024 12:18 PM Consult Order SURGERY/CW M OUTPT Cons License Issuer's Choice [facility] Immunizations: All administered on the encounter date This section contains immunizations associated to the Encounter. Immunization Series Date Issued Reaction Comments COVID-19 (MODERNA), MRNA, LN P-S, PF, 50 MCG/0.5 ML (AGES 12+ YEARS) Jun 13, 2024 INFLUENZA, HIGH-DOSE, TRIVALENT, PF Jun 13 Social History: Smoking Status (Most current) and [...] took place. Date/Time Current Smoking Status Comment [facility] haider Apr 07, 2023 01:30 PM [place]-TOBACCO QUIT 5 TO < 15 YRS [facility] Tobacco Use History This section includes a history of the smoking, or tobacco-related health factors, that were collected on or before the date of the Encounter. The data comes from the [place] facility where the Encounter took place. Date/Time Smoking Status/Tobac co Use Comment Facility Apr 07, 2023 01:30 PM NC-TOBACCO QUIT 5 TO < 15 YRS [facility] May 07, 2022 09:30 AM VA-TOBACCO FORMER USER [facility] May 07, 2022 09:30 AM VA-TOBACCO QUIT 1 TO < 5 YRS [facility] May 15, 2021 08:45 AM VA-TOBACCO FOR[facility]ER [facility] May 15, 2021 08:45 AM VA-TOBACCO QUIT 1 TO < 5 YRS [facility] Jun 04, 2020 10:30 AM VA-TOBACCO FORMER USER [facility] Jun 04, 2020 10:30 AM VA-TOBACCO QUIT < 1 YEAR [employer] [facility] May 23, 2019 09:36 AM VA-TOBACCO DOESNT USE [place] 30 MIN WAKEUP [facility] May 23, 2019 09:36 AM VA-TOBACCO USE 30 YEARS OR MORE [employer] [facility] May 23, 2019 09:36 AM VA-TOBACCO [facility] May 23, 2019 09:36 AM 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 [facility] May 23, 2019 09:36 AM VA-TOBACCO USE MED NO [facility] May 23, 2019 09:36 AM VA-TOBACCO USER EVERY DAY [facility] Apr 21, 2018 01:18 PM CURRENT SMOKER 1/2 pk a week [employer] [facility] Apr 21, 2018 01:18 PM V1-PT DECLINES REF TO TOBACCO CESS PRGM [facility] Apr 21, 2018 01:18 PM V1-PT DECLINES TOB ACCO CESSATION MEDS [facility] Apr 21, 2018 01:18 PM V1-PT THINKING ABO UT QUIT TOBACCO USE [facility] Oct 18, 2017 02:19 PM V1-PT NOT INTEREST ED IN QUIT TOBACCO USE [facility] Oct 04, 2017 01:55 PM CURRENT SMOKER .5 packs a day [facility] Advance Directives: All historical and current [...] 2003 ADVANCE DIRECTIVE KAT OVIEDO [facility] Encounter Notes: All associated encounter notes This section contains the clinical notes associated to the Encounter. Date/Time Encounter Note(s) Provider Source Jun 13, 2024 09:58 AM PREVENTIVE MEDICIN E NURSING NOTE: LOCAL TITLE: CLINICAL REMINDERS/NURSING STANDARD TITLE: PREVENTIVE MEDICINE NURSING NOTE DATE OF NOTE: JUN 13, 2024@09:58 ENTRY DATE: JUN 13, 2024@09:58:58 AUTHOR: KYA LAROSE EXP COSIGNER: URGENCY: STATUS: COMPLETED Influenza Immunization: Influenza, High-Dose, Trivalent, Preservative Free (Fluzone-Syringe) Administered: INFLUENZA, HIGH-DOSE, TRIVALENT, PF Date Administered: Jun 13, 2024 09:30 [employer] T[employer] Tester: Deed PASTEUR Lot: [id number] Exp Date: Feb 19, 2025 NDC: [id number] Admin Route/Site: INTRAMUSCULAR/RIGHT DELTOID Dosage: 0.5mL Vaccine Information Statement(s): INFLUENZA(FLU) VACC(INACTIVATED OR RECOMBINANT)VIS Mar 28, 2021 (YEMENI) Order By: Policy Administered By: Kya Larose The Influenza Vaccine Information Statement (VIS) was reviewed with the patient/caregiver which lists the benefits and risks of the vaccine and the risks of not receiving the Influenza vaccine. The patient/caregiver denied any prior severe reaction to this vaccine or its components or a severe allergic reaction, such as anaphylaxis, to any vaccine or any injectable therapy. The patient/caregiver gave verbal consent to receive the vaccine. COVID-19 Immunization: Moderna Monovalent (Spikevax) Administered: COVID-19 (MODERNA), MRNA, LNP-S, PF, 50 MCG/0.5 ML (AGES 12+ YEARS) Date Administered: Jun 13, 2024 09:30 [employer] T[employer] Tester: MODERNA [employer] Lot: [id number] Exp Date: Jan 27, 2025 NDC: [id number] Admin Route/Site: INTRAMUSCULAR/LEFT DELTOID Dosage: 0.5mL Vaccine Information Statement(s): COVID-19 MRNA VACCINE (12+ YRS) VACCINE VIS Jun 10, 2023 (YEMENI) Order By: Policy Administered By: Kya Larose Vaccine administered without complications. /herlinda/ KYA LAROSE, MSN, RN, CNL PRIMARY CARE TEAM NURSE Signed: 06/13/2024 10:01 KYA LAROSE [facility]
--- OUTSIDE RECORDS SUMMARY | 2024-08-18 13:11 | XMS_ITS | Encounter Summary ---
Author Name [place] Address [address] [place] [address] Care Team Providers Care Prison Classification Counselor Name Role Phone ALEXANDR YODER Primary Care [...] [facility] Mar 23, 2023 [id number] [phone] Ezekeil WILKERSON PATIENT Selected Encounter This section includes the information on record at CT for the Encounter. Date/Time Encounter Type Encounter Description Reason Pro vider Source Apr 19, 2024 12:00 AM Outpatient Encounter EVENT (HISTORICAL) IHE Encounter Template Text not used by CT Plan of Treatment: Future Appointments (+ 6 months) and Future Tests (+/- 45 days) The Plan of Treatment section includes future care activities for the patient from all [place] treatmentfacilities. This section includes future appointments and [...] AMBULATORY - PSYCHIATRY [facility] [place] [facility] Jun 13, 2024 09:30 AM AMBULATORY - MEDICINE [facility] [place] [facility] Jun 19, 2024 02:00 PM AMBULATORY - MEDICINE [facility] [place] [facility] Jun 21, 2024 01:30 PM AMBULATORY - PSYCHIATRY [facility] [place] [facility] Jun 28, 2024 02:30 PM AMBULATORY - PSYCHIATRY [facility] [place] [facility] Jul 04, 2024 11:00 AM AMBULATORY - MEDICINE [facility] [place] [facility] Jul 10, 2024 11:00 AM AMBULATORY - REHAB MEDICIN E [facility] [place] [facility] Jul 25, 2024 12:30 PM AMBULATORY - NONE [facility] [place] [facility] Jul 25, 2024 01:00 PM AMBULATORY - PSYCHIATRY [facility] [place] [facility] Jul 31, 2024 01:00 PM AMBULATORY - REHAB MEDICIN E [facility] [place] [facility] Jul 31, 2024 02:00 PM AMBULATORY - MEDICINE [facility] [place] [facility] Aug 08, 2024 08:30 AM AMBULATORY - MEDICINE [facility] [place] [facility] Aug 08, 2024 09:30 AM AMBULATORY - NONE [facility] [place] [facility] Aug 21, 2024 02:30 PM AMBULATORY - REHAB MEDICIN E [facility] [place] [facility] Aug 22, 2024 10:00 AM AMBULATORY - MEDICINE [facility] [place] [facility] Aug 29, 2024 11:00 AM AMBULATORY - PSYCHIATRY [facility] [place] [facility] Aug 29, 2024 11:30 AM AMBULATORY - PSYCHIATRY [facility] [place] [facility] Sep 14, 2024 11:00 AM AMBULATORY - REHAB MEDICIN E [facility] [place] [facility] Social History: Smoking Status (Most [...] Date/Time Current Smoking Status Comment [facility] Apr 07, 2023 01:30 PM VA-TOBACCO QUIT 5 TO < [address] [facility] [place] [facility] Tobacco Use History This section includes a history of the smoking, or tobacco-related health factors, that were collected on or before the date of the Encounter. The data comes from the CT facility where the Encounter took place. Date/Time Smoking Status/Tobac co Use Comment Facility Apr 07, 2023 01:30 PM VA-TOBACCO QUIT 5 TO < [address] [facility] [place] [facility] May 07, 2022 09:30 AM VA-TOBACCO FORMER USER [facility] [place] [facility] May 07, 2022 09:30 AM VA-TOBACCO QUIT 1 TO < [address] [facility] [place] [facility] May 15, 2021 08:45 AM VA-TOBACCO FORMER USER [facility] [place] [facility] May 15, 2021 08:45 AM VA-TOBACCO QUIT 1 TO < [address] [facility] [place] [facility] Jun 04, 2020 10:30 AM VA-TOBACCO FORMER USER [facility] [place] [facility] Jun 04, 2020 10:30 AM VA-TOBACCO QUIT < [address] [facility] [place] [facility] May 23, 2019 09:36 AM VA-TOBACCO DOESNT USE WI [address] [facility] [place] [facility] May 23, 2019 09:36 AM VA-TOBACCO USE [address] [facility] [place] [facility] May 23, 2019 09:36 AM VA-TOBACCO USE ADVICE CT [facility] [place] [facility] May 23, 2019 09:36 AM VA-TOBACCO USE BUNGHOLE BORER NO CT [facility] [place] [facility] May 23, 2019 09:36 AM VA-TOBACCO USE MED NO [facility] [place] [facility] May 23, 2019 09:36 AM VA-TOBACCO USER EVERY DAY CT [facility] [place] [facility] Apr 21, 2018 01:18 PM CURRENT SMOKER 1/[address] [facility] [place] [facility] Apr 21, 2018 01:18 PM V1-PT DECLINES REF TO TOBACCO CESS PRGM [facility] Apr 21, 2018 01:18 PM V1-PT DECLINES TOB ACCO CESSATION MEDS [facility] Apr 21, 2018 01:18 PM V1-PT THINKING ABO UT QUIT TOBACCO USE [facility] Oct 18, 2017 02:19 PM V1-PT NOT INTEREST ED IN QUIT TOBACCO USE [facility] Oct 04, 2017 01:55 PM CURRENT [...] 2003 ADVANCE DIRECTIVE KAT OVIEDO [facility] Encounter Notes: All associated encounter notes This section contains the clinical notes associated to the Encounter. Date/Time Encounter Note(s) Provider Source Apr 19, 2024 12:00 AM NONVA CONSULT: LOCAL TITLE: COMMUNITY CARE-CONSULT RESULT NOTE STANDARD TITLE: NONVA CONSULT DATE OF NOTE: APR 19, 2024 ENTRY DATE: MAY 09, 2024@12:12:25 AUTHOR: HAMILTON ARANGO EXP COSIGNER: URGENCY: STATUS: COMPLETED VistA Imaging - Scanned Document SCANNED DOCUMENT SIGNATURE NOT REQUIRED Electronically Filed: 05/09/2024 by: HAMILTON ARANGO CODING TECHNICIAN HAMILTON ARANGO [facility]
--- OUTSIDE RECORDS SUMMARY | 2024-08-18 13:11 | XMS_ITS | Encounter Summary ---
Author Name [facility] [place] Organization [facility] [place] Address [address] [place] [address] Care Team Providers Care Credit Collections Clerk Name Role Phone ALEXANDR YODER Primary Care [...] MEDICARE ADVANTAGE HUMAN A INSUR ANCE [facility] Mar 23, 2023 [id number] [phone] Ezekiel WILKERSON PATIENT Selected Encounter This section includes the information on record at [place] for the Encounter. Date/Time Encounter Type Encounter Description Reason Pro vider Source Apr 14, 2024 12:00 AM Outpatient Encounter EVENT (HISTORICAL) IHE Encounter Template Text not used by [place] Plan of Treatment: Future Appointments (+ 6 months) and Future Tests (+/- 45 days) The Plan of Treatment section includes future care activities for the patient from all [place] treatmentfacilities. This section includes future appointments and [...] MEDICINE [facility] [place] [facility] May 05, 2024 01:30 PM AMBULATORY - PSYCHIATRY [facility] [place] [facility] Jun 13, 2024 09:30 AM AMBULATORY - MEDICINE [facility] [place] [facility] Jun 19, 2024 02:00 PM AMBULATORY - MEDICINE [facility] [place] [facility] Jun 21, 2024 01:30 PM AMBULATORY - PSYCHIATRY [facility] [place] [facility] Jun 28, 2024 02:30 PM AMBULATORY - PSYCHIATRY [facility] [place] [facility] Jul 04, 2024 11:00 AM AMBULATORY - MEDICINE [facility] [place] [facility] Jul 10, 2024 11:00 AM AMBULATORY - REHAB MEDICIN E [facility] [place] [facility] Jul 25, 2024 12:30 PM AMBULATORY - NONE [facility] [place] [facility] Jul 25, 2024 01:00 PM AMBULATORY - PSYCHIATRY [facility] [place] [facility] Jul 31, 2024 01:00 PM AMBULATORY - REHAB MEDICIN E [facility] [place] [facility] Jul 31, 2024 02:00 PM AMBULATORY - MEDICINE [facility] [place] [facility] Aug 08, 2024 08:30 AM AMBULATORY - MEDICINE [facility] [place] [facility] Aug 08, 2024 09:30 AM AMBULATORY - NONE [facility] [place] [facility] Aug 21, 2024 02:30 PM AMBULATORY - REHAB MEDICIN E [facility] [place] [facility] Aug 22, 2024 10:00 AM AMBULATORY - MEDICINE [facility] [place] [facility] Aug 29, 2024 11:00 AM AMBULATORY - PSYCHIATRY [facility] [place] [facility] Aug 29, 2024 11:30 AM AMBULATORY - PSYCHIATRY [facility] [place] [facility] Sep 14, 2024 11:00 AM AMBULATORY - REHAB MEDICIN E [facility] [place] [facility] Social History: Smoking Status (Most current) [...] VA-TOBACCO FORMER USER [place] [facility] [place] [facility] Tobacco Use History This section includes a history of the smoking, or tobacco-related health factors, that were collected on or before the date of the Encounter. The data comes from the [place] facility where the Encounter took place. Date/Time Smoking Status/Tobac co Use Comment Facility Apr 07, 2023 01:30 PM VA-TOBACCO QUIT 5 TO < 15 YRS [facility] [place] [facility] May 07, 2022 09:30 AM VA-TOBACCO FORMER USER [place] [facility] [place] [facility] May 07, 2022 09:30 AM VA-TOBACCO QUIT 1 TO < 5 YRS [facility] [place] [facility] May 15, 2021 08:45 AM VA-TOBACCO FORMER USER [place] [facility] [place] [facility] May 15, 2021 08:45 AM VA-TOBACCO QUIT 1 TO < 5 YRS [place] [facility] [place] [facility] Jun 04, 2020 10:30 AM VA-TOBACCO FORMER USER [place] [facility] [place] [facility] Jun 04, 2020 10:30 AM VA-TOBACCO QUIT < 1 YEAR [facility] [place] [facility] May 23, 2019 09:36 AM VA-TOBACCO DOESNT USE WI 30 MIN WAKEUP [place] [facility] [place] [facility] May 23, 2019 09:36 AM VA-TOBACCO USE 30 YEARS OR MORE [place] [facility] [place] [facility] May 23, 2019 09:36 AM VA-TOBACCO USE ADVICE [facility] [place] [facility] May 23, 2019 09:36 AM VA-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 USE 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 NO [facility] [place] [facility] May 23, 2019 09:36 AM VA-TOBACCO USE MED NO [place] [facility] [place] [facility] May 23, 2019 09:36 AM VA-TOBACCO USER EVERY DAY [place] [facility] [place] [facility] Apr 21, 2018 01:18 PM CURRENT SMOKER 1/2 pk a week [facility] [place] [facility] Apr 21, 2018 01:18 PM V1-PT DECLINES REF TO TOBACCO CESS PRGM [facility] Apr 21, 2018 01:18 PM V1-PT DECLINES TOB ACCO CESSATION MEDS [facility] Apr 21, 2018 01:18 PM V1-PT THINKING ABO UT QUIT TOBACCO USE [facility] Oct 18, 2017 02:19 PM V1-PT NOT INTEREST ED IN QUIT TOBACCO USE [facility] Oct 04, 2017 01:55 PM CURRENT SMOKER .5 packs a day [facility] Advance Directives: All historical and current [...] Feb 13, 2003 ADVANCE DIRECTIVE KAT OVIEDO [facility] Encounter Notes: All associated encounter notes This section contains the clinical notes associated to the Encounter. Date/Time Encounter Note(s) Provider Source Apr 14, 2024 12:00 AM NONVA CONSULT: LOCAL TITLE: COMMUNITY CARE-CONSULT RESULT NOTE STANDARD TITLE: NONVA CONSULT DATE OF NOTE: APR 14, 2024 ENTRY DATE: MAY 17, 2024@11:08:09 AUTHOR: REEMA BRAND EXP COSIGNER: URGENCY: STATUS: COMPLETED VistA Imaging - Scanned Document SCANNED DOCUMENT SIGNATURE NOT REQUIRED Electronically Filed: 05/17/2024 by: REEMA WHITEHEAD [facility]
--- OUTSIDE RECORDS SUMMARY | 2024-08-18 13:11 | XMS_ITS | Encounter Summary ---
Author Name [facility] [place] Organization [place] Address [address] [place] [address] Care Team Providers Care Bookkeepers Supervisor Name Role Phone ALEXANDR YODER Primary Care [...] ADVANTAGE HUMAN A [facility] Mar 23, 2023 [id number] [phone] Ezekiel WILKERSON PATIENT Selected Encounter This section includes the information on record at [place] for the Encounter. Date/Time Encounter Type Encounter Description Reason Provider Source Jun 19, 2024 02:00 PM TRIM NAIL(S) PODIATRY ICD-10-CM L60.3 Nail dystrophy JAMAR LATHAM Chucky Encounter Template Text not used by [place] Assessments - Encounter Diagnoses This section includes the primary and secondary diagnoses documented for the Encounter. Date/Time Primary/Secondary Diagnosis Diagnosis Name Provider Source Jun 19, 2024 02:23 PM PRIMARY Nail dystrophy [facility] [place] [facility] Plan of Treatment: Future Appointments (+ [...] Appointment Type Appointme nt Facility Name Jun 21, 2024 01:30 PM AMBULATORY - [...] [facility] [place] [facility] Oct 23, 2024 02:30 PM AMBULATORY - MEDICINE [facility] [place] [facility] Nov 01, 2024 01:30 PM AMBULATORY - MEDICINE [facility] [place] [facility] Nov 28, 2024 03:00 PM AMBULATORY - MEDICINE [facility] [place] [facility] Active, Pending, and Scheduled Orders This section includes a listing of several types of active, pending, and scheduled orders, including clinic medications orders, diagnostic test orders, procedure orders and consult orders; where the start date of the order is 45 days before the date of the Encounter or 45 days after the date of theEncounter. The data comes from all [place] treatment facilities. Test Date/Time Test Type Test Details Facility Name Jul 27, 2024 12:18 PM Consult Order SURGERY/CW M OUTPT Cons Clamp Jig Assembler's Choice [place] [facility] [facility] Jul 31, 2024 02:19 PM Consult Order PHYSICAL T HERAPY/NHM OUTPT Cons Clamp [facility]ig [facility] Social History: Smoking Status [...] took place. Date/Time Current Smoking Status Comment [facility] Apr 07, 2023 01:30 PM VA-TOBACCO FORMER USER [place] [facility] Tobacco Use History This [...] < 15 YRS [place] [facility] [facility] May [...] < 5 YRS [place] [facility] [facility] Jun 04, 2020 10:30 AM VA-TOBACCO FORMER USER [place] [facility] [facility] Jun 04, 2020 10:30 AM VA-TOBACCO QUIT < 1 YEAR [facility] May 23, 2019 09:36 AM VA-TOBACCO DOESNT USE WI 30 MIN WAKEUP [facility] May 23, 2019 09:36 AM VA-TOBACCO USE 30 YEARS OR MORE [facility] May 23, 2019 09:36 AM VA-TOBACCO USE ADVICE [facility] May 23, 2019 09:36 AM VA-TOBACCO USE INSURANCE ADJUSTER NO [facility] May 23, 2019 09:36 AM VA-TOBACCO USE MED NO [facility] May 23, 2019 09:36 AM VA-TOBACCO USER EVERY DAY [facility] Apr 21, 2018 01:18 PM CURRENT SMOKER 1/2 pk a week [facility] Apr 21, 2018 01:18 PM V1-PT DECLINES REF TO TOBACCO CESS PRGM [facility] Apr 21, 2018 01:18 PM [...] Feb 13, 2003 ADVANCE DIRECTIVE KAT OVIEDO [facility] DAMIAN HUGHES Encounter Notes: All associated encounter notes This section contains the clinical notes associated to the Encounter. Date/Time Encounter Note(s) Provider Source Jun 19, 2024 02:21 PM NURSING OUTPATIENT NOTE: LOCAL TITLE: NURSING/SPECIALTY CLINIC NOTE STANDARD TITLE: NURSING OUTPATIENT NOTE DATE OF NOTE: JUN 19, 2024@14:21 ENTRY DATE: JUN 19, 2024@14:21:38 AUTHOR: JAMAR LATHAM COSIGNER: URGENCY: STATUS: COMPLETED seen in [facility] for continued foot care. [place] has a history of Mycotic nails and [...] to cool/cold, proximal to distal Pedal skin: [x ] Intact [x ] Dry [ ] Cracked [ ] Discolored Webspaces: [x ] Intact [x ] Clean [ ] Soiled [ ] Macerated [ ] Dry Nails: [x ] Thickened [x ] Elongated [x ] Dystrophic [ ] Discolored [ ] Fungal [ ] Incurvated [ ] Subungual debri Hyperkeratosis [ ] Yes, Locations: [x ] No Open lesions/wounds: [ ] Yes, Locations: [x ] No Amputations: [ ] Yes, Locations: [x ] No Edema present: ( ) Yes ( x ) NO Podiatric Problem List: [ ] Diabetes mellitus [ ] Peripheral vascular disease [ ] Neuropathy [ ] Onychomycosis [x ] Dystrophic toenails [ ] Hyperkeratosis/calluses [x ] Xerosis/dry skin [ ] Other: Treatment: [x ] Nails x 10 debrided in length and thickness without incident [ ] Hyperkeratotic lesions were grinded down with eletric ice grinder and debrided without incidence. [x ]Patient education educated about proper foot care and encouraged to check feet daily for injuries and wounds [x ] Instructed to moisturize feet daily but not in-between toes Patient is to RTC in 4months. /herlinda/ JAMAR LATHAM LPN LICENSED PRACTICAL NURSE Signed: 06/19/2024 14:23 Receipt Acknowledged By: 06/19/2024 16:15 /herlinda/ YOSELIN FAROOQ DPM PODIATRY ATTENDING JAMAR LATHAM [facility]
--- OUTSIDE RECORDS SUMMARY | 2024-08-18 13:11 | XMS_ITS ---
Author Name [facility] [place] Organization [place] Address [address] [place] [address] Care Team Providers Care Assistant Federal Public Defender Name Role Phone ALEXANDR YODER Primary Care [...] Name Patient's Relationship to Policy [place] [facility] (WNR) MEDICARE ADVANTAGE HUMAN A [facility]UR [facility] Mar 23, 2023 [id number] [phone] Ezekiel WILKERSON PATIENT Selected Encounter This section includes the information on record at [place] for the Encounter. Date/Time Encounter Type Encounter Description Reason Pro vider Source May 12, 2024 09:17 AM Outpatient Encounter COMMUNITY CARE CONSULT IHE [...] 13, 2024 09:30 AM AMBULATORY - MEDICINE [place] [facility] [facility] Jun 19, 2024 02:00 PM AMBULATORY - MEDICINE [place] [facility] [facility] Jun 21, 2024 01:30 PM AMBULATORY - PSYCHIATRY [facility] [place] [facility] Jun 28, 2024 02:30 PM AMBULATORY - PSYCHIATRY [facility] [place] [facility] Jul 04, 2024 11:00 AM AMBULATORY - MEDICINE [facility] [place] [facility] Jul 10, 2024 11:00 AM AMBULATORY - REHAB MEDICIN E [facility] [place] [facility] Jul 25, 2024 12:30 PM AMBULATORY - NONE [place] [facility] [place] [facility] Jul 25, 2024 01:00 PM AMBULATORY - PSYCHIATRY [facility] [place] [facility] Jul 31, 2024 01:00 PM AMBULATORY - REHAB MEDICIN E [place] [facility] [place] [facility] Jul 31, 2024 02:00 PM AMBULATORY - MEDICINE [place] [facility] [facility] Aug 08, 2024 08:30 AM AMBULATORY - MEDICINE [place] [facility] [facility] Aug 08, 2024 09:30 AM AMBULATORY - NONE [place] [facility] [place] [facility] Aug 21, 2024 02:30 PM AMBULATORY - REHAB MEDICIN E [place] [facility] [place] [facility] Aug 22, 2024 10:00 AM AMBULATORY - MEDICINE [place] [facility] [place] [facility] Aug 29, 2024 11:00 AM AMBULATORY - PSYCHIATRY [place] [facility] [place] [facility] Aug 29, 2024 11:30 AM AMBULATORY - PSYCHIATRY [place] [facility] [facility] Sep 14, 2024 11:00 AM AMBULATORY - REHAB MEDICIN E [place] [facility] [facility] Oct 23, 2024 02:30 PM AMBULATORY - MEDICINE [place] [facility] [facility] Nov 01, 2024 01:30 PM AMBULATORY - MEDICINE [place] [facility] [facility] Social History: Smoking Status (Most [...] VA-TOBACCO FORMER USER [place] [facility] [facility] Tobacco Use History This section includes a history of the smoking, or tobacco-related health factors, that were collected on or before the date of the Encounter. The data comes from the [place] facility where the Encounter took place. Date/Time Smoking Status/Tobac co Use Comment Facility Apr 07, 2023 01:30 PM VA-TOBACCO QUIT 5 TO < 15 YRS [place] [facility] [place] [facility] May 07, 2022 09:30 AM VA-TOBACCO FORMER USER [place] [facility] [place] [facility] May 07, 2022 09:30 AM VA-TOBACCO QUIT 1 TO < 5 YRS [place] [facility] [place] [facility] May 15, 2021 08:45 AM VA-TOBACCO FORMER USER [place] [facility] [facility] [facility] May 15, 2021 08:45 AM VA-TOBACCO QUIT 1 TO < 5 YRS [place] [facility] [place] [facility] Jun 04, 2020 10:30 AM VA-TOBACCO FORMER USER [place] [facility] [facility] Jun 04, 2020 10:30 AM VA-TOBACCO QUIT < 1 YEAR [place] [facility] [place] [facility] May 23, 2019 09:36 AM VA-TOBACCO DOESNT USE WI 30 MIN WAKEUP [place] [facility] [facility] May 23, 2019 09:36 AM VA-TOBACCO USE 30 YEARS OR MORE [place] [facility] [facility] May 23, 2019 09:36 AM VA-TOBACCO USE ADVICE [place] [facility] [place] [facility] May 23, 2019 09:36 AM VA-TOBACCO USE 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 Apr 21, 2018 01:18 PM V1-PT DECLINES TOB ACCO [facility]ESSATION [facility] Apr 21, 2018 01:18 PM V1-PT THINKING ABO UT QUIT TOBACCO USE [facility] Oct 18, 2017 02:19 PM V1-PT NOT INTEREST ED IN QUIT TOBACCO USE [facility] Oct 04, 2017 01:55 PM CURRENT SMOKER .5 packs a day [facility] Advance Directives: All historical and [...] KAT OVIEDO [facility] Encounter Notes: All associated encounter notes This section contains the clinical notes associated to the Encounter. Date/Time Encounter Note(s) Provider Source May 12, 2024 02:29 PM ADDENDUM: LOCAL TITLE: Addendum STANDARD TITLE: ADDENDUM DATE OF NOTE: MAY 12, 2024@14:29:19 ENTRY DATE: MAY 12, 2024@14:29:21 AUTHOR: AUNDREA HAMILTON EXP COSIGNER: URGENCY: STATUS: COMPLETED CC Pulm advised that ECHO can be done with existing CC Pulm consult. No separate consult should be needed. /herlinda/ AUNDREA HAMILTON Community Care RN Signed: 05/12/2024 14:30 Receipt Acknowledged By: 05/15/2024 12:01 /herlinda/ JR JOSEPH Nurse Practitioner 05/15/2024 10:11 /herlinda/ CAMDEN NINO, URVASHI, RN, CNL PRIMARY CARE TEAM NURSE ====== --- Original Document --- 05/12/24 COMMUNITY CARE-CARE COORDINATION PLAN NOTE: [place] Pulmonology provider, Vee Dominguez NP at [facility] is ordering a transthoracic echo. R06.09-other forms of dyspnea. From her Note: Will send for echo to assess for any cardiac component contributing to symptom...Patient also with hypertension at this time, advised to follow up with PCP/Cardiology to discuss. [facility] has scheduled echo for 05/22/2024 at 1 PM. Alerting PACT, CC RN, RCI RN on this echo/cardiology request from CC provider. /herlinda/ AUNDREA HAMILTON [facility] Care RN Signed: 05/12/2024 09:25 Receipt Acknowledged By: * AWAITING SIGNATURE * ALEXANDR YODER 05/15/2024 09:34 /es/ GAGANDEEP COTA [facility] BSN RN DAWSON 05/12/2024 14:18 /es/ BIANCA ALFREDO RN Referral Coordination Initiative Nurse 05/12/2024 ADDENDUM STATUS: COMPLETED I beleive Echo is covered under the pulmonary authorization. /herlinda/ BIANCA ALFREDO RN Referral Coordination Initiative Nurse Signed: 05/12/2024 14:19 AUNDREA HAMILTON [place] [facility] [facility] May 12, 2024 09:17 AM NONVA NOTE: LOCAL TITLE: COMMUNITY CARE-CARE COORDINATION PLAN NOTE STANDARD TITLE: NONVA NOTE DATE OF NOTE: MAY 12, 2024@09:17 ENTRY DATE: MAY 12, 2024@09:17:42 AUTHOR: AUNDREA HAMILTON COSIGNER: URGENCY: STATUS: COMPLETED COMMUNITY CARE-CARE COORDINATION PLAN NOTE Has ADDENDA [place]'s Pulmonology provider, Vee Dominguez NP at [facility] is ordering a transthoracic echo. R06.09-other forms of dyspnea. From her Note: Will send for echo to assess for any cardiac component contributing to symptom...Patient also with hypertension at this time, advised to follow up with PCP/Cardiology to discuss. [facility] has scheduled echo for 05/22/2024 at 1 PM. Alerting PACT, CC RN, RCI RN on this echo/cardiology request from CC provider. /herlinda/ AUNDREA HAMILTON [facility] RN Signed: 05/12/2024 09:25 Receipt Acknowledged By: 05/15/2024 16:01 /herlinda/ JR JOSEPH Nurse Practitioner 05/15/2024 09:34 /es/ GAGANDEEP COTA [facility] BSN RN DAWSON 05/12/2024 14:18 /es/ BIANCA ALFREDO transmission and protection engineer Coordination Initiative Nurse 05/12/2024 ADDENDUM STATUS: COMPLETED I belyaneve Echo is covered under the pulmonary authorization. /herlinda/ BIANCA ALFREDO RN Referral Coordination Initiative Nurse Signed: 05/12/2024 14:19 05/12/2024 ADDENDUM STATUS: COMPLETED CC Pulm advised that ECHO can be done with existing CC Pulm consult. No separate consult should be needed. /herlinda/ AUNDREA HAMILTON [facility] RN Signed: 05/12/2024 14:30 Receipt Acknowledged By: 05/15/2024 12:01 /herlinda/ JR JOSEPH Nurse Practitioner 05/15/2024 10:11 /herlinda/ CAMDEN NINO, MSN, RN, CNL PRIMARY CARE TEAM NURSE AUNDREA HAMILTON [facility]
--- OUTSIDE RECORDS SUMMARY | 2024-08-18 13:11 | XMS_ITS | Encounter Summary ---
Author Name [facility] [place] [facility] [place] Address [address] [place] [address] Care Team Providers Care Stitch Burnisher Name Role Phone ALEXANDR YODER Primary Care [...] A INSUR ANCE COM Mar 23, 2023 [id number] [phone] Ezekiel WILKERSON PATIENT Selected Encounter This section includes the information on record at [place] for the Encounter. Date/Time Encounter Type Encounter Description Reason Pro vider Source Mar 15, 2024 04:22 PM Outpatient Encounter [facility] Encounter Template Text not used by [place] Plan of Treatment: Future Appointments (+ 6 months) and Future Tests (+/- 45 days) The Plan of Treatment section includes future care activities for the patient from all [place] treatmentfacilities. This section includes future appointments and future orders which are active, pending or scheduled. Future Appointments This section includes appointments that were scheduled to occur 6 months from the date of the Encounter, up to a maximum of 20 appointments. The data comes from all [place] treatment facilities. Appointment Date/Time Appointment Type Appointme nt Facility Name Apr 06, 2024 08:30 AM AMBULATORY - MEDICINE [facility] Apr 19, 2024 02:15 PM [facility] May 05, 2024 01:30 PM [facility] Jun 13, 2024 09:30 AM [facility] Jun 19, 2024 02:00 PM [facility] Jun 21, 2024 01:30 PM [facility] Jun 28, 2024 02:30 PM [facility] Jul 04, 2024 11:00 AM [facility] Jul 10, 2024 11:00 AM AMBULATORY - REHAB MEDICIN E [facility] Jul 25, 2024 12:30 PM AMBULATORY - NONE [facility] Jul 25, 2024 01:00 PM AMBUL[facility] PS[facility]IATRY [facility] Jul 31, 2024 01:00 PM AMBULATORY - REHAB MEDICIN E [facility] Jul 31, 2024 02:00 PM [facility] Aug 08, 2024 08:30 AM [facility] Aug 08, 2024 09:30 AM AMBULATORY - NONE [facility] Aug 21, 2024 02:30 PM AMBULATORY - REHAB MEDICIN E [facility] Aug 22, 2024 10:00 AM [facility] Aug 29, 2024 11:00 AM AMBULAT[facility] PS[facility]CHIATRY [facility] Aug 29, 2024 11:30 AM AMBUL[facility] PS[facility]IATRY [facility] Sep 14, 2024 11:00 AM AMBULATORY - REHAB MEDICIN E [facility] Lab Results: +/- 30 days of the [...] Range Comment Feb 16, 2024 02:28 PM [facility] HEPATITIS B SURFACE ANTIBODY (HBsAb)-WH Specimen Type: SERUM No comment entered. Ordering Provider: ALEXANDR YODER Report Released Date/Time: Feb 16, 2024 01:52 PM Reporting Lab: [facility] [address] [address] Performing Lab: [address] [address] HBsAb Non Reactive Non Reactive Feb 16, 2024 02:28 PM [facility] THYROID TOTAL T4 Specimen Type: SERUM No comment entered. Ordering Provider: ALEXANDR YODER Report Released Date/Time: Feb 16, 2024 02:10 PM Reporting Lab: [facility] [address] [address] Performing Lab: [facility] [address] [facility] [address] THYROID TOTAL T4 9.87 ug/dL 4.5-12.0 Feb 16, 2024 02:28 PM [facility] TSH Specimen Type: SERUM No comment entered. Ordering Provider: ALEXANDR YODER Report Released Date/Time: Feb 16, 2024 02:10 PM Reporting Lab: [facility] [address] [address] Performing Lab: [facility] [address] [address] TSH 0.74 u[IU]/mL 0.35-5.00 Social History: Smoking Status (Most current) and Tobacco Use (All prior to encounter date) This section includes the most current, and the historical, smoking and tobacco- related health factors from the [place] facility where the Encounter took place. Current Smoking Status This section includes the most current smoking, or tobacco-related health factor, from the [place] facility where the Encounter took place. Date/Time Current Smoking Status Comment Facil it Apr 07, 2023 01:30 PM VA-TOBACCO FORMER USER [place] [facility] Tobacco Use History This section includes a history of the smoking, or tobacco-related health factors, that were collected on or before the date of the Encounter. The data comes from the [place] facility where the Encounter took place. Date/Time Smoking Status/Tobac co Use Comment Facility Apr 07, 2023 01:30 PM VA-TOBACCO QUIT 5 TO < 15 YRS [facility] May 07, 2022 09:30 AM VA-TOBACCO FORMER USER [place] [facility] May 07, 2022 09:30 AM VA-TOBACCO QUIT 1 TO < 5 YRS [place] May 15, 2021 08:45 AM VA-TOBACCO FORMER USER [place] [facility] May 15, 2021 08:45 AM VA-TOBACCO QUIT 1 TO < 5 YRS [place] [facility] Jun 04, 2020 10:30 AM VA-TOBACCO FORMER USER [place] [facility] Jun 04, 2020 10:30 AM VA-TOBACCO QUIT < 1 YEAR [place] [facility] May 23, 2019 09:36 AM VA-TOBACCO DOESNT USE WI 30 MIN WAKEUP [place] [facility] May 23, 2019 09:36 AM VA-TOBACCO USE 30 YEARS OR MORE [place] [facility] May 23, 2019 09:36 AM VA-TOBACCO USE ADVICE [place] May 23, 2019 09:36 AM VA-TOBACCO USE AUDIT SPEC NO [place] May 23, 2019 09:36 AM VA-TOBACCO USE MED NO [place] [facility] May 23, 2019 09:36 AM VA-TOBACCO USER EVERY DAY [place] Apr 21, 2018 01:18 PM CURRENT SMOKER 1/2 pk a week [place] [facility] Apr 21, 2018 01:18 PM V1-PT DECLINES REF TO TOBACCO CESS PRGM [facility] Apr 21, 2018 01:18 PM V1-PT DECLINES TOB ACCO CESSATION MEDS [facility] Apr 21, 2018 01:18 PM V1-PT THINKING ABO UT QUIT TOBACCO USE [facility] Oct 18, 2017 02:19 PM V1-PT NOT INTEREST ED IN QUIT TOBACCO USE [facility] Oct 04, 2017 01:55 PM CURRENT SMOKER .5 packs a day [facility] Advance Directives: All historical and current Section Date Range: From patient's date of to the date document was created. This section includes ALL of a patient's completed or amended [place] Advance and Rescinded Directives. The entries below indicate that a directive exists for the patient, but an actual copy is not included with this document. The data comes from all [place] facilities. Date Advance Directives Provider Source Feb 13, 2003 ADVANCE DIRECTIVE KAT OVIEDO [facility] Encounter Notes: All associated encounter notes This section contains the clinical notes associated to the Encounter. Date/Time Encounter Note(s) Provider Source Mar 15, 2024 04:22 PM MENTAL HEALTH NOTE : LOCAL TITLE: [facility] ASSIGNMENT STANDARD TITLE: MENTAL HEALTH NOTE DATE OF NOTE: MAR 15, 2024@16:22 ENTRY DATE: MAR 15, 2024@16:22:19 AUTHOR: LANI VUONG EXP COSIGNER: URGENCY: STATUS: COMPLETED Mental Health Car Salesperson Assignment Reassignment [facility] [place] current Mental Health Car Salesperson (MHTC) is: MH Treatment Team: YENNY Denson Car Salesperson: BRIA LOPEZ Office Phone: Analog Pager: Digital Pager: This note documents the REASSIGNMENT of the [facility] Car Salesperson (MHTC) on Feb. New MHTC name: Kian Martinez TC Contact Information: [phone] ext [phone] Additional PCMM notes: [facility] TEAM A [facility] [place] existing MHTC was reassigned due to: Existing MHTC Medical Housekeeper departure/transition /es/ HARRIS De Paz [facility] Medical Housekeeper Signed: 03/15/2024 16:23 LANI VUONG [facility]
--- OUTSIDE RECORDS SUMMARY | 2024-08-18 13:12 | XMS_ITS | Encounter Summary ---
Author Name [facility] [place] Address [address] [place] [address] Care Team Providers Care Oil Well Driller Name Role Phone ALEXANDR YODER Primary Care [...] Name Patient's Relationship to Policy [place] [employer] [facility] (WNR) MEDICARE ADVANTAGE HUMAN A INSUR ANCE [facility] Mar 23, 2023 [id number] [phone] Ezekiel WILKERSON PATIENT Selected Encounter This section includes the information on record at [place] for the Encounter. Date/Time Encounter Type Encounter Description Reason Pro vider Source May 23, 2024 12:00 AM Outpatient Encounter EVENT (HISTORICAL) I[facility] Encounter Template Text not used by [place] Plan of Treatment: Future Appointments (+ 6 months) and Future Tests (+/- 45 days) The Plan of Treatment section includes future care activities for the patient from all [place] treatment[facility]ilities. This section includes future appointments and future orders which are active, pending or scheduled. Future Appointments This section includes appointments that were scheduled to occur 6 months from the date of the Encounter, up to a maximum of 20 appointments. The data comes from all [place] treatment facilities. Appointment Date/Time Appointment Type Appointme nt Facility Name Jun 13, 2024 09:30 AM AM[facility]ULATORY [facility]ICINE [facility] [place] [facility] Jun 19, 2024 02:00 PM AMBULATORY - MEDICINE [facility] [place] [facility] Jun 21, 2024 01:30 PM AMBULATORY - PS[facility]CHIATRY [facility] [place] [facility] Jun 28, 2024 02:30 PM AMBULATORY - PS[facility]CHIATRY [facility] [place] [facility] Jul 04, 2024 11:00 AM AMBULATORY - MEDICINE [facility] [place] [facility] Jul 10, 2024 11:00 AM AMBULATORY - REHAB MEDICIN E [facility] [place] [facility] Jul 25, 2024 12:30 PM AMBULATORY - NONE [facility] [place] [facility] Jul 25, 2024 01:00 PM AMBULATORY - PSYCHIATRY [facility] [place] [facility] Jul 31, 2024 01:00 PM AMBULATORY - REHAB MEDICIN E [facility] [place] [facility] Jul 31, 2024 02:00 PM AMBULATORY - MEDICINE [facility] [place] [facility] Aug 08, 2024 08:30 AM AMBULATORY - MEDICINE [facility] [place] [facility] Aug 08, 2024 09:30 AM AMBULATORY - NONE [facility] [place] [facility] Aug 21, 2024 02:30 PM AMBULATORY - REHAB MEDICIN E [facility] [place] [facility] Aug 22, 2024 10:00 AM AMBULATORY - MEDICINE [facility] [place] [facility] Aug 29, 2024 11:00 AM AMBULATORY - PSYCHIATRY [facility] [place] [facility] Aug 29, 2024 11:30 AM AMBULATORY - PSYCHIATRY [facility] [place] [facility] Sep 14, 2024 11:00 AM AMBULATORY - REHAB MEDICIN E [facility] [place] [facility] Oct 23, 2024 02:30 PM AMBULATORY - MEDICINE [facility] [place] [facility] Nov 01, 2024 01:30 PM AMBULATORY - MEDICINE [facility] [place] [facility] Social History: Smoking Status (Most current) and Tobacco Use (All prior to encounter date) This section includes the most current, and the historical, smoking and tobacco- related health factors from the [place] facility where the Encounter took place. Current Smoking Status This section includes the most current smoking, or tobacco-related health factor, from the [place] facility where the Encounter took place. Date/Time Current Smoking Status Comment Facil it Apr 07, 2023 01:30 PM VA-TOBACCO FORMER USER [place] [facility] [place] [facility] Tobacco Use History This section includes a history of the smoking, or tobacco-related health factors, that were collected on or before the date of the Encounter. The data comes from the [place] facility where the Encounter took place. Date/Time Smoking Status/Tobac co Use Comment Facility Apr 07, 2023 01:30 PM VA-TOBACCO QUIT 5 TO < 15 YRS [facility] [place] [facility] May 07, 2022 09:30 AM VA-TOBACCO FORMER USER [facility] [place] [facility] May 07, 2022 09:30 AM VA-TOBACCO QUIT 1 TO < 5 YRS [facility] [place] [facility] May 15, 2021 08:45 AM VA-TOBACCO FORMER USER [place] [facility] [place] [facility] May 15, 2021 08:45 AM VA-TOBACCO QUIT 1 TO < 5 YRS [place] [facility] [place] [facility] Jun 04, 2020 10:30 AM VA-TOBACCO FORMER USER [facility] [place] [facility] Jun 04, 2020 10:30 AM VA-TOBACCO QUIT < 1 YEAR [facility] [place] [facility] May 23, 2019 09:36 AM VA-TOBACCO DOESNT USE WI 30 MIN WAKEUP [place] [facility] [place] [facility] May 23, 2019 09:36 AM VA-TOBACCO USE 30 YEARS OR MORE [place] [facility] [place] [facility] May 23, 2019 09:36 AM VA-TOBACCO USE ADVICE [facility] [place] [facility] May 23, 2019 09:36 AM 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 [facility] [place] [facility] May 23, 2019 09:36 AM VA-TOBACCO USE MED NO [facility] [place] [facility] May 23, 2019 09:36 AM VA-TOBACCO USER EVERY DAY [place] [facility] [place] [facility] Apr 21, 2018 01:18 PM CURRENT SMOKER 1/2 pk a week [facility] Apr 21, 2018 01:18 PM V1-PT DECLINES REF TO TOBACCO CESS PRGM [facility] Apr 21, 2018 01:18 PM V1-PT DECLINES TOB ACCO CESSATION MEDS [facility] Apr 21, 2018 01:18 PM V1-PT THINKING ABO UT QUIT TOBACCO USE [facility] Oct 18, 2017 02:19 PM V1-PT NOT INTEREST ED IN QUIT TOBACCO USE [facility] Oct 04, 2017 01:55 PM CURRENT SMOKER .5 packs a day [facility] Advance Directives: All historical and current Section Date Range: From patient's date of to the date document was created. This section includes ALL of a patient's completed or amended [place] Advance and Rescinded Directives. The entries below indicate that a directive exists for the patient, but an actual copy is not included with this document. The data comes from all [place] facilities. Date Advance Directives Provider Source Feb 13, 2003 ADVANCE DIRECTIVE KAT OVIEDO [facility]
--- OUTSIDE RECORDS SUMMARY | 2024-08-18 13:12 | XMS_ITS ---
Author Name [facility] ([place] Organization [facility] [place]) Address [address] [place] [address] Care Team Providers Care Grants Analyst Name Role Phone ALEXANDR YODER Primary Care Provider Unavailjuan pablo pro Insurance Providers: All historical and current Section [...] LYLE (WNR) MEDICARE ADVANTAGE HUMAN A INSUR [facility] Mar 23, 2023 [id number] [phone] Ezekiel WILKERSON PATIENT Selected Encounter This section includes the information on record at [place] for the Encounter. Date/Time Encounter Type Encounter Description Reason Provider Source Jul 10, 2024 11:00 AM MANUAL THERAPY 1/> [facility] OCCUPATIONAL THERAPY ICD-10-CM M79.601 Pain in right arm ISABEL LEMOS E IHE Encounter Template Text not used by [place] Assessments - Encounter Diagnoses This section includes the primary and secondary diagnoses documented for the Encounter. Date/Time Primary/Secondary Diagnosis Diagnosis Name Provider Source Jul 10, 2024 02:29 PM PRIMARY Pain in right arm ISABEL LEMOS E [facility] [place] [facility] Plan of Treatment: Future Appointments (+ [...] 20 appointments. The data comes from all [facility]. Appointment Date/Time Appointment Type Appointme nt Facility Name Jul 25, 2024 12:30 PM AMBULATORY - NONE [facility] [place] [facility] Jul 25, 2024 01:00 PM AMBULATORY - PSYCHIATRY [facility] [place] [facility] Jul 31, 2024 01:00 PM AMBULATORY - REHAB MEDICIN E [facility] [place] [facility] Jul 31, 2024 02:00 PM AMBULATORY - MEDICINE [facility] [place] [facility] Aug 08, 2024 08:30 AM AMBULATORY - MEDICINE [facility] [place] [facility] Aug 08, 2024 09:30 AM AMBULATORY - NONE [facility] [place] [facility] Aug 21, 2024 02:30 PM AMBULATORY - REHAB MEDICIN E [facility] [place] [facility] Aug 22, 2024 10:00 AM AMBULATORY - MEDICINE [facility] [place] [facility] Aug 29, 2024 11:00 AM AMBULATORY - PSYCHIATRY [facility] [place] [facility] Aug 29, 2024 11:30 AM AMBULATORY - PSYCHIATRY [facility] [place] [facility] Sep 14, 2024 11:00 AM AMBULATORY - REHAB MEDICIN E [facility] [place] [facility] Oct 23, 2024 02:30 PM AMBULATORY - MEDICINE [facility] [place] [facility] Nov 01, 2024 01:30 PM AMBULATORY - MEDICINE [place] [facility] [place] [facility] Nov 28, 2024 03:00 PM AMBULATORY - MEDICINE [place] [facility] [place] [facility] Active, Pending, and Scheduled Orders This section includes a listing of several types of active, pending, and scheduled orders, including clinic medications orders, diagnostic test orders, procedure orders and consult orders; where the start date of the order is 45 days before the date of the Encounter or 45 days after the date of theEncounter. The data comes from all [place] treatment [facility]. Test Date/Time Test Type Test Details Facility Name Jul 27, 2024 12:18 PM Consult Order SURGERY/CW M OUTPT Cons [facility] Jul 31, 2024 02:19 PM Consult Order PHYSICAL T HERAPY/NHM OUTPT [facility] Lab Results: +/- 30 days of the encounter This section includes the Chemistry and Hematology Lab Results on record with [place] for the patient. Radiology Reports and Pathology Reports are provided separately, in subsequent sections. Lab Results This section contains the Chemistry/Hematology Results that were resulted 30 days before or 30 daysafter the date of the Encounter. Date/Time Source Result Type Result - Unit Interpretation Reference Range Comment Aug 08, 2024 10:07 AM [facility] BNP (Natriuretic Peptide Brain) Specimen Type: PLASMA No comment entered. Ordering Provider: ALEXANDR YODER Report Released Date/Time: Aug 08, 2024 08:51 AM Reporting Lab: [facility] [address] [facility] [address] Performing Lab: [facility] [address] [facility] [address] BNP (Natriuretic Peptide Brain) 20 pg/mL 10-100 Aug 08, 2024 10:07 AM [facility] HEMOGLOBIN A1C PANEL Specimen Type: BLOOD Comment: Values obtained from A1C measurements can vary. For atypical A1C assays, a reported value of 7.0 could actually be between 6.72 and 7.28 if measured by a reference method. A reported value of 9.0 could actually be between 8.73 and 9.27. Ref: http://www.ngs p.org/CAPdata. asp Ordering Provider: ALEXANDR YODER Report Released Date/Time: Aug 08, 2024 08:51 AM Reporting Lab: [facility] [address] [facility] [address] Performing Lab: [address] [address] HEMOGLOBIN A1C 6.0 H 4.0-5.6 Aug 08, 2024 10:07 AM [facility] LIPID PANEL FASTING Specimen Type: SERUM No comment entered. Ordering Provider: ALEXANDR YODER Report Released Date/Time: Aug 08, 2024 08:51 AM Reporting Lab: [facility] [address] [address] Performing Lab: [facility] [address] [facility] [address] CHOLESTEROL 122 mg/dL TRIGLYCERIDE 117 mg/dL 0-150 LDL calculated 70 mg/dL 0-129 CHOL/HDL 4.2 HDL CHOLESTEROL 29 mg/dL L 40-60 Aug 08, 2024 10:07 AM [facility] LIVER FUNCTION Specimen Type: SERUM No comment entered. Ordering Provider: ALEXANDR YODER Report Released Date/Time: Aug 08, 2024 08:51 AM Reporting Lab: [facility] [address] [facility] [address] Performing Lab: [address] [address] PROTEIN,TOTAL 6.6 g/dL 6.0-8.3 ALBUMIN 3.7 g/dL 3.5-5.0 ALKALINE PHOSPHATASE 96 U/L 40-150 AST 20 U/L 5-34 ALT 28 U/L BILIRUBIN, TOTAL 0.5 mg/dL 0.2-1.2 Aug 08, 2024 10:07 AM [facility] TSH Specimen Type: SERUM No comment entered. Ordering Provider: ALEXANDR YODER Report Released Date/Time: Aug 08, 2024 08:51 AM Reporting Lab: [facility] [address] [facility] [address] Performing Lab: [address] [address] TSH 1.43 u[IU]/mL 0.35-5.00 Aug 08, 2024 10:07 AM [facility] BASIC METABOLIC PANEL (non-fasting) Specimen Type: SERUM No comment entered. Ordering Provider: ALEXANDR YODER Report Released Date/Time: Aug 08, 2024 08:51 AM Reporting Lab: [facility] [address] [address] Performing Lab: [facility] [address] [facility] [address] UREA NITROGEN 19 mg/dL 7-25 GLUCOSE 102 mg/dL H 65-100 SODIUM 139 mmol/L 135-145 POTASSIUM 4.3 mmol/L 3.5-5.0 CHLORIDE 107 mmol/L 100-110 CO2 23 meq/L 20-30 CREATININE, Serum 1.51 mg/dL H 0.50-1.40 eGFR(CKD-EPI 2020) 50 mL/min L >60 Aug 08, 2024 10:07 AM [facility] CBC AND DIFF (AUTO) Specimen Type: BLOOD No comment entered. Ordering Provider: ALEXANDR YODER Report Released Date/Time: Aug 08, 2024 08:51 AM Reporting Lab: [address] [address] Performing Lab: [facility] [address] [facility] [address] WBC 6.37 10*3/uL 4.50-11.00 RBC 4.95 10*6/uL 4.23-5.66 HGB 14.8 g/dL 12.8-17 HCT 44.4 39.2-50.4 MCV 89.7 fL 82-99 MCHC 33.3 g/dL 30.8-35.1 PLT 226 10*3/uL 140-360 RDW-CV 13.2 12.0-16.0 MONO, ABS 0.83 10*3/uL 0.30-1.10 MCH 29.9 pg 26.2-32.6 NEUT % 47.0 43.7-75.8 LYMPH % 35.8 14.0-42.3 MONO % 13.0 5.1-13.7 EOS % 2.5 0.4-6.8 BASO % 0.9 0.1-2.0 NEUT, ABS 2.99 10*3/uL 2.20-7.60 LYMPH, ABS 2.28 10*3/uL 1.00-3.20 EOS, ABS 0.16 10*3/uL 0.03-0.44 BASO, ABS 0.06 10*3/uL 0.01-0.13 IMMATURE GRAN % 0.8 H 0.0-0.7 IMMATURE GRAN, ABS 0.05 10*3/uL 0.00-0.06 NRBC % 0.0 0.0-0.0 NRBC, ABS 0.00 10*3/uL 0.00-0.00 Social History: Smoking Status (Most current) and Tobacco Use (All prior to encounter date) This section includes the most current, and the historical, smoking and tobacco- related health factors from the AL facility where the Encounter took place. Current Smoking Status This section includes the most current smoking, or tobacco-related health factor, from the AL facility where the Encounter took place. Date/Time Current Smoking Status Comment [facility] Jul 04, 2024 11:00 AM VA-TOBACCO FORMER USER [place] [facility] [place] [facility] Tobacco Use History This section includes a history of the smoking, or tobacco-related health factors, that were collected on or before the date of the Encounter. The data comes from the [place] facility where the Encounter took place. Date/Time Smoking Status/Tobac co Use Comment Facility Jul 04, 2024 11:00 AM VA-TOBACCO QUIT 5 TO < 15 YRS [facility] [place] [facility] Apr 07, 2023 01:30 PM VA-TOBACCO FORMER USER [facility] [place] [facility] Apr 07, 2023 01:30 PM VA-TOBACCO QUIT 5 TO < 15 YRS [facility] [place] [facility] May 07, 2022 09:30 AM VA-TOBACCO FORMER USER [facility] [place] [facility] May 07, 2022 09:30 AM VA-TOBACCO QUIT 1 TO < 5 YRS [facility] [place] [facility] May 15, 2021 08:45 AM VA-TOBACCO FORMER USER [facility] [place] [facility] May 15, 2021 08:45 AM VA-TOBACCO QUIT 1 TO < 5 YRS [facility] [place] [facility] Jun 04, 2020 10:30 AM VA-TOBACCO FORMER USER [facility] [place] [facility] Jun 04, 2020 10:30 AM VA-TOBACCO QUIT < 1 YEAR [facility] [place] [facility] May 23, 2019 09:36 AM VA-TOBACCO DOESNT USE WI 30 MIN WAKEUP [facility] May 23, 2019 09:36 AM VA-TOBACCO USE 30 YEARS OR MORE [facility] May 23, 2019 09:36 AM VA-TOBACCO USE ADVICE [facility] May 23, 2019 09:36 AM VA-TOBACCO USE PAPER COATER NO [facility] May 23, 2019 09:36 AM VA-TOBACCO USE MED NO [facility] May 23, 2019 09:36 AM VA-TOBACCO USER EVERY DAY [facility] Apr 21, 2018 01:18 PM CURRENT SMOKER 1/2 pk a week [facility] Apr 21, 2018 01:18 PM V1-PT DECLINES REF TO TOBACCO CESS PRGM [facility] Apr 21, 2018 01:18 PM V1-PT DECLINES TOB ACCO CESSATION MEDS [facility] Apr 21, 2018 01:18 PM V1-PT THINKING ABO UT QUIT TOBACCO USE [facility] Oct 18, 2017 02:19 PM V1-PT NOT INTEREST ED IN QUIT TOBACCO USE [facility] Oct 04, 2017 01:55 PM CURRENT SMOKER .5 packs a day [facility] Advance Directives: All historical and current Section Date Range: From patient's date of to the date document was created. This section includes ALL of a patient's completed or amended [place] Advance and Rescinded Directives. The entries below indicate that a directive exists for the patient, but an actual copy is not included with this document. The data comes from all [place] facilities. Date Advance Directives Provider Source Feb 13, 2003 ADVANCE DIRECTIVE KAT OVIEDO [facility] Radiology Reports: +/- 30 days of the encounter Radiology Reports For cases when an order for radiology services may have been completed prior to the date of the Encounter, the report list includes the Radiology Reports that were completed up to 30 days before dateof the Encounter. For cases when an order for radiology services may have been completed after the date of the Encounter, the report list also includes the Radiology Reports that were completed up to30 days after date of the Encounter. The data comes from all [place] treatment facilities. Date/Time Radiology Report Provider Source Aug 08, 2024 11:06 AM KNEE 3 VIEWS (RIGHT): ANDRZEJ WILKERSON [id number] -[id number] M Exm Date: AUG 08, 2024@11:06 Req Phys: ALEXANDR YODER Pat Loc: CWM/NO/PACT 5 (Req'g Loc) Img Loc: [facility]/BUILDING 1 Service: Unknown [facility] [place] [address] (Case [id number] COMPLETE) KNEE 3 VIEWS (RIGHT) (RAD Detailed) CPT:60974 Reason for Study: Right knee instability Clinical 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 Report Status: Verified Date Reported: AUG 08, 2024 Date Verified: AUG 08, 2024 Support Teacher E-Sig:/ES/CLEVELAND REEVES JR Report: Study: AP weight-bearing views of the knees with lateral and sunrise views of the right knee. Comparison: Right knee radiograph from December 30, 2021. Findings: The patient is again status post right total knee replacement. The prosthetic components appear intact and without evidence of loosening. There is patellar resurfacing again identified with normal positioning of the right patella. The knee joint spaces appear maintained. There is no suprapatellar joint effusion present. No bony fracture, dislocation or subluxation is seen. The bony mineralization is normal. Stable appearance of likely calcified popliteal cyst posterior to the knee. Impression: No acute bony abnormality identified. Primary Diagnostic Code: No immediate attention required Primary Interpreting Staff: CLEVELAND REEVES JR, Radiologist (Support Teacher) /CLEVELAND HERNANDEZ JR [facility] Aug 08, 2024 09:23 AM DUPLEX SCAN: EXTREMITY VEINS, UNILATERAL: ANDRZEJ WILKERSON [id number] -[id number] M Exm Date: AUG 08, 2024@09:23 Req Phys: ALEXANDR YODER Pat Loc: CWM/NO/PACT 5 (Req'g Loc) Img Loc: ULTRASOUND Service: [place] [address] (Case [id number] COMPLETE) DUPLEX SCAN: EXTREMITY VEINS, UNI(US Detailed) CPT:23059 Proc Modifiers : RIGHT Reason for Study: Right lateral upper leg pain and right lower leg pain Clinical History: no palpable cord (+) edema h/o DVT Report Status: Verified Date Reported: AUG 08, 2024 Date Verified: AUG 08, 2024 Support Teacher E-Sig:/ES/CLEVELAND REEVES JR Report: Study: Right lower extremity DVT ultrasound. Comparison: None. Technique: Grayscale and color-flow sonography were used to evaluate the deep veins of the lower right extremity. The visualized veins of the calf are evaluated. Findings: Normal color flow is identified in the common femoral, superficial femoral and popliteal veins. No deep venous thrombosis is identified in the common femoral, superficial femoral, and popliteal veins. The visualized calf veins are patent and normal. No popliteal cyst is identified. Impression: No deep venous thrombosis identified. Primary Diagnostic Code: No immediate attention required Primary Interpreting Staff: CLEVELAND REEVES JR, Radiologist (Support Teacher) /CLEVELAND HERNANDEZ JR [facility] Jul 25, 2024 12:24 PM ULTRASOUND NECK (THYROID,HEAD,SOFT TISSUE): ANDRZEJ WILKERSON [id number] -[id number] Ex Date: JUL 25, 2024@12:24 Req Phys: ALEXANDR YODER Pat Loc: CWM/NO/PACT 5 (Req'g Loc) Img Loc: ULTRASOUND Service: [place] [address] (Case [id number] COMPLETE) ULTRASOUND NECK (THYROID,HEAD,SOF(US Detailed) CPT:93437 Reason for Study: Right axillary tenderness Clinical History: no nodules palpated but very ttp r/o reactive lymphadenopathy Report Status: Verified Date Reported: JUL 25, 2024 Date Verified: JUL 25, 2024 Support Teacher E-Sig:/ES/CLEVELAND REEVES JR Report: Study: Right axillary soft tissue ultrasound evaluation. COMPARISON: Chest radiographs from July 07, 2023. TECHNIQUE: Grayscale and color-flow sonography were used to evaluate an area of pain in the right axillary region soft tissues. FINDINGS: At the site of reported pain there is a single subcutaneous, hypoechoic, round, well-circumscribed, nonshadowing cyst measuring 3 mm in greatest dimension. No solid mass, lymphadenopathy or drainable fluid collection is identified. No significant soft tissue swelling is identified. Imaging follow-up can be as clinically indicated. Impression: 3 mm small cyst in the right axillary region of pain without solid mass or lymphadenopathy identified, as described above. Primary Diagnostic Code: No immediate attention required Primary Interpreting Staff: CLEVELAND REEVES JR, Radiologist (Support Teacher) /CLEVELAND HERNANDEZ JR [facility] [place] [facility] Encounter Notes: All associated encounter notes This section contains the clinical notes associated to the Encounter. Date/Time Encounter Note(s) Provider Source Jul 10, 2024 10:32 AM OCCUPATIONAL MEDICINE CONSULT: [facility] TITLE: CONSULT REPORT/OCCUPATIONAL THERAPY STANDARD TITLE: OCCUPATIONAL MEDICINE CONSULT DATE OF NOTE: JUL 10, 2024@10:32 ENTRY DATE: JUL 10, 2024@10:32:45 AUTHOR: ISABEL LEMOS COSIGNER: ALEXANDR YODER URGENCY: STATUS: COMPLETED Initial Evaluation date: Jun Progress Note Date: Treatment #: eval Treatment time: 38 minutes Diagnosis: Pain in right Arm(ICD-10-CM M79.601) Provider: Nathan OT Treatment Precautions: Patient identified by full name and date of S: Mr. Wilkerson is a 69 y/o [facility] male who was referred to OT for R arm pain. He was seen in the OT clinic on 07/10/2024. He is known to this global technical writer from previous sessions. PMH: Active problems - Computerized Problem List is the source for the followin. Ex-smoker 2. Harmon esophagus 3. Colonoscopy normal 4. Degenerative disc disease 5. Depression 6. Sleep apnea 7. Supraventricular tachycardia 8. HTN - Hypertension ([facility] [id number]) 9. Anxiety disorder 10. H/O: gastric ulcer 11. Steatosis of liver 12. Partial tear, knee, anterior cruciate ligament 13. Chronic kidney disease stage 2 14. Ocular rosacea 15. Radioactive iodine-induced hypothyroidism 16. Obesity 17. History of surgery 18. Chronic obstructive lung disease 19. Obesity 20. H/O: Deep vein thrombosis RYAN: pt reports that for about 2 months he has been experiencing some ttp in the axilla. he reports that most of the time he is awoken during sleep d/t pain. he reports paresthesia's in the median nerve distribution. Pain Level: 1/10 at rest, increasing 10/10 at worst Pain Location: median nerve distribution, radiating from armpit Aggravating Factors: sleep, holding a cup of coffee Alleviating Factors: warmth O: Pt is R hand dominant. 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 Hx: [address] [employer] [employer] [facility] [facility]. Hobbies: he used to enjoy gardening, fishing Clinical Presentation: thenar atrophy noted R>L very slight 1st dorsal interosseous atrophy R forearm seems slightly more edematous than L squared CMC joint noted pt is guarded of his R UE. AROM: pt is able to extend and flex digits but w/ tightness Special Testing: Tinel's over Carpal Tunnel: (+) R strongly Compression Test: (+) R strongly Grind: (+) R for pain Palpation: ttp and tightness noted over first dorsal interosseous ttp throughout thenar musculature Police Surgeon/Pinch: deferred [place]: *discussed possibility of CTS as well as CMC arthritis. pt was interested in trialing tx for CMC arthritis. *MHP to R hand prior to tx *mobilization to 1st dorsal interosseous/thenar musculature x8' *issued pt RIGHT LARGE wrist cock up splint from pros [employer]. pt was able to don/doff I'ly. discussed nocturnal use and to wear during the day when not active. pt v/u. 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 He has a pending axillary US. Did not test shoulder AROM as sx's seemed related to CTS. Will treat conservatively and f/u w/ pt after his US. PLAN: Plan to f/u w/ pt in 3 weeks. Will tx hand sx's if these are persistent. If shoulder/axillary discomfort continues, will reassess shoulder. Pt is in agreement w/ this POC. GOALS: (4 weeks) 1. pt will be compliant w/ splint wear 2. pt will report improved night pain by 50% since initiating nocturnal splinting The practitioner's co-signature on this note signifies agreement with plan of care and clinical diagnosis code. /herlinda/ Isabel Lemos, MS OTR/L, CHT Occupational Therapist Signed: 07/10/2024 14:29 /herlinda/ JR JOSEPH Nurse Practitioner Cosigned: 07/11/2024 08:47 ISABEL LEMOS [facility] [place] [facility]
--- OUTSIDE RECORDS SUMMARY | 2024-08-18 13:12 | XMS_ITS | Encounter Summary ---
Author Name [facility] [place] [facility] [place] Organization [facility] [place] Address [address] [place] [address] Care Team Providers Care Industrial Economics Teacher Name Role Phone ALEXANDR YODER Primary Care [...] Name Patient's Relationship to Policy [place] [employer] [facility] (WNR) MEDICARE ADVANTAGE HUMAN A [facility] Mar 23, 2023 [id number] [phone] Ezekiel WILKERSON PATIENT Selected Encounter This section includes the information on record at [place] for the Encounter. Date/Time Encounter Type Encounter Description Reason Provider Source Jun 28, 2024 02:30 PM MTMS BY LIZZ NATHAN [facility] - IND ICD-10-CM F32.A Depression, unspecified RAGUINDIN,JASP ER YOAN D E Encounter Template Text not used by [place] Assessments - Encounter Diagnoses This section includes the primary and secondary diagnoses documented for the Encounter. Date/Time Primary/Secondary Diagnosis Diagnosis Name Provider Source Jun 28, 2024 03:19 PM PRIMARY Depression, unspecified RAGUINDIN,JASP ER YOAN D [facility] [place] [facility] Jun 28, 2024 03:19 PM SECONDARY Anxiety disorder, unspecified RAGUINDIN,JASP ER YOAN D [place] [facility] [place] [facility] Plan of Treatment: Future Appointments (+ 6 months) and Future Tests (+/- 45 days) The Plan of Treatment section includes future care activities for the [facility] [place] [facility] This section includes future appointments and future orders which are active, pending or scheduled. Future Appointments This section includes appointments that were scheduled to occur 6 months from the date of the Encounter, up to a maximum of 20 appointments. The data comes from all [place] treatment facilities. Appointment Date/Time Appointment Type Appointme nt Facility Name Jul 04, 2024 11:00 AM AMBULATORY - MEDICINE [facility] [place] [facility] Jul 10, 2024 11:00 AM AMBULATORY - REHAB MEDICIN E [facility] [place] [facility] Jul 25, 2024 12:30 PM AMBULATORY - NONE [facility] [place] [facility] Jul 25, 2024 01:00 PM AMBULATORY - PSYCHIATRY [facility] [place] [facility] Jul 31, 2024 01:00 PM AMBULATORY - REHAB MEDICIN E [facility] [place] [facility] Jul 31, 2024 02:00 PM AMBULATORY - MEDICINE [facility] [place] [facility] Aug 08, 2024 08:30 AM AMBULATORY - MEDICINE [facility] [place] [facility] Aug 08, 2024 09:30 AM AMBULATORY - NONE [facility] [place] [facility] Aug 21, 2024 02:30 PM AMBULATORY - REHAB MEDICIN E [facility] [place] [facility] Aug 22, 2024 10:00 AM AMBULATORY - MEDICINE [facility] [place] [facility] Aug 29, 2024 11:00 AM AMBULATORY - PSYCHIATRY [facility] [place] [facility] Aug 29, 2024 11:30 AM AMBULATORY - PSYCHIATRY [facility] [place] [facility] Sep 14, 2024 11:00 AM AMBULATORY - REHAB MEDICIN E [facility] [place] [facility] Oct 23, 2024 02:30 PM AMBULATORY - MEDICINE [facility] [place] [facility] Nov 01, 2024 01:30 PM AMBULATORY - MEDICINE [facility] [place] [facility] Nov 28, 2024 03:00 PM AMBULATORY - MEDICINE [place] [facility] [place] [facility] Active, Pending, and Scheduled Orders This section includes a listing of several types of active, pending, and scheduled orders, including clinic medications orders, diagnostic test orders, procedure orders and consult orders; where the start date of the order is 45 days before the date of the Encounter or 45 days after the date of theEncounter. The data comes from all [place] treatment facilities. Test Date/Time Test Type Test Details Facility Name Jul 27, 2024 12:18 PM Consult Order SURGERY/CW M OUTPT Cons Commercial Technician[facility] Choice [place] [facility] [place] [facility] Jul 31, 2024 02:19 PM Consult Order PHYSICAL T HERAPY/NHM OUTPT Cons Commercial Technician's Choice [place] [facility] [place] [facility] Social History: [...] took place. Date/Time Current Smoking Status Comment [facility] Apr 07, 2023 01:30 PM VA-TOBACCO FORMER USER [facility] Tobacco Use History This [...] < 5 YRS [facility] [place] [facility] May 15, 2021 08:45 AM VA-TOBACCO FORMER USER [facility] [place] [facility] May 15, 2021 08:45 AM VA-TOBACCO QUIT 1 TO < 5 YRS [facility] [place] [facility] Jun 04, 2020 10:30 AM VA-TOBACCO FORMER USER [facility] [place] [facility] Jun 04, 2020 10:30 AM VA-TOBACCO QUIT < 1 YEAR [facility] May 23, 2019 09:36 AM VA-TOBACCO DOESNT USE WI 30 MIN WAKEUP [facility] May 23, 2019 09:36 AM VA-TOBACCO USE 30 YEARS OR MORE [facility] May 23, 2019 09:36 AM VA-TOBACCO USE ADVICE [facility] May 23, 2019 09:36 AM VA-TOBACCO USE FIBER TECHNICIAN NO [facility] May 23, 2019 09:36 AM VA-TOBACCO USE MED NO [facility] May 23, 2019 09:36 AM VA-TOBACCO USER EVERY DAY [facility] Apr 21, 2018 01:18 PM CURRENT SMOKER 1/2 pk a week [facility] Apr 21, 2018 01:18 PM V1-PT DECLINES REF TO TOBACCO CESS PRGM [facility] Apr 21, 2018 01:18 PM V1-PT DECLINES TOB ACCO CESSATION MEDS [facility] Apr 21, 2018 01:18 PM V1-PT THINKING ABO UT QUIT TOBACCO USE [facility] Oct 18, 2017 02:19 PM V1-PT NOT INTEREST ED IN QUIT TOBACCO USE [facility] Oct 04, 2017 01:55 PM CURRENT SMOKER .5 packs a day [facility] Advance Directives: All historical and [...] Feb 13, 2003 ADVANCE DIRECTIVE KAT OVIEDO [facility] DAMIAN HUGHES Radiology Reports: +/- 30 days of the [...] the Encounter. The data comes from all [place] treatment facilities. Date/Time Radiology Report Provider Source Jul 25, 2024 12:24 PM ULTRASOUND NECK (THYROID,HEAD,SOFT TISSUE): ANDRZEJ WILKERSON [id number] -1955 M Exm Date: JUL 25, 2024@12:24 Req Phys: ALEXANDR YODER Pat Loc: CWM/NO/PACT 5 (Req'g Loc) Img Loc: ULTRASOUND Service: [place] [address] (Case [id number] COMPLETE) ULTRASOUND NECK (THYROID,HEAD,SOF(US Detailed) CPT:23364 Reason for Study: Right axillary tenderness Clinical History: no nodules palpated but very ttp r/o reactive lymphadenopathy Report Status: Verified Date Reported: JUL 25, 2024 Date Verified: JUL 25, 2024 Manager Managing E-Sig:/ES/CLEVELAND REEVES JR Report: Study: Right axillary [...] Primary Interpreting Staff: CLEVELAND REEVES JR, Radiologist (Manager Managing) /CLEVELAND HERNANDEZ JR [facility] Encounter Notes: All associated encounter notes This section contains the clinical notes associated to the Encounter. Date/Time Encounter Note(s) Provider Source Jun 28, 2024 03:15 PM PHARMACY MEDICATION MGT NOTE: LOCAL TITLE: CLINICAL PHARMACIST F/U NOTE STANDARD TITLE: PHARMACY MEDICATION MGT NOTE DATE OF NOTE: JUN 28, 2024@15:15 ENTRY DATE: JUN 28, 2024@15:15:35 AUTHOR: OLMAN AGUILAR COSIGNER: URGENCY: STATUS: COMPLETED Program: Clinical Pharmacy Provider/Medication Management Speciality: Mental Health ATTENDED BY: [X] Patient [ ] Spouse/Caregiver LENGTH OF SESSION: 30minutes -=-=-=-=-=-=-=-=-=-=-=-=-=-=- =-=-=-=-=-==-=-=-=-=-=-=-=-=- =-=-=-=-=-=-=-=-=-=-=- Name: ANDRZEJ WILKERSON : Mar ID: 69yo WHITE MALE -=-=-=-=-=-=-=-=-=-=-=-=-=-=- =-=-=-=-=-==-=-=-=-=-=-=-=-=- =-=-=-=-=-=Subjective- [place] was last seen on [id number] with the following pharmacotherapeutic plan: [X] No changes [ ] Discontinue: [ ] Initiate: [ ] Change the following: Treating Dx(s): Depression and Anxiety INTERIM HISTORY pt reports to be doing well, notably in good spirits today. expressed that he has been getting out more, socializing more, and I even made bread which he has not made in over 9months. pt also expressed to have a little trip later this month. states I'm gaining more trust in people. notes that he has f/u for a CT can of his lungs, but appeared less distressed like this. medications reviewed. mentions that he has not had any nightmares in over 3wks and agreed to discontinuing the agent at this time. -=-=-=-=-=-=-=-=-=-=-=-=-=-=- =-=-=-=-=-==-=-=-=-=-=-=-=-=- =-=-=-=-=-=-Objective- Mental [...] 6. Supraventricular tachycardia 7. HTN - Hypertension ([facility] [id number]) 8. Anxiety disorder 9. H/O: gastric ulcer [...] TAB TAKE ONE TABLET BY MOUTH ACTIVE AT BEDTIME FOR 14 DAYS, THEN TAKE [...] ACTIVE MOUTH ONCE DAILY FOR MOOD/DEPRESSION 10) FAMOTIDINE 20MG TAB TAKE ONE TABLET BY MOUTH AT ACTIVE BEDTIME FOR STOMACH ACID 11) FLUTICAS 250/SALMETEROL 50 INHL DISK 60 INHALE 1 PUFF ACTIVE BY MOUTH EVERY 12 HOURS - RINSE MOUTH AFTER USE 12) FLUTICAS 500/SALMETEROL 50 INHL DISK 60 INHALE 1 PUFF ACTIVE BY MOUTH EVERY 12 HOURS - RINSE MOUTH AFTER USE 13) LEVOTHYROXINE NA (SYNTHROID) 150MCG TAB TAKE ONE ACTIVE TABLET BY MOUTH EVERY MORNING 30 MINUTES BEFORE BREAKFAST FOR THYROID - TAKE ON AN EMPTY STOMACH WITH A FULL GLASS OF WATER 14) OMEPRAZOLE 20MG EC CAP TAKE ONE CAPSULE BY MOUTH ACTIVE EVERY MORNING 30 MINUTES BEFORE BREAKFAST 15) TIOTROPIUM 2.5MCG/ACTUAT 60D ORAL INHL INHALE 2 PUFFS ACTIVE BY MOUTH ONCE DAILY Pending Outpatient Medications Status 1) BUSPIRONE HCL 10MG TAB TAKE TWO TABLETS BY MOUTH PENDING TWICE DAILY Active Non-VA Medications Status 1) Non-VA OTHER CAP/TAB BY MOUTH ACTIVE 17 Total Medications Past psychiatric medications include the following: [X] Per CPRS: - buspirone (2022-current) - citalopram () - escitalopram (2022-current) - prazosin (2023-current) - sertraline (2020) - trazodone () [ [...] following review of all active psychotropic and BRANNER MACHINE TENDER-active agents is to ensure pharmacotherapy is evaluated for safety and efficacy as they relate to behaviorial and physiological changes and outcomes Pt is stable on the following regimen and requires no changes at this time. Depression 2/2 to medical condtions w/ possible seasonal component - escitalopram 20mg daily - buspirone 20mg bid - prazosin 1mg hs for nightmares > will d/c d/t nonutilization PLAN 1. Pharmacotherapy [X] No changes [ [...] Other: RTC Interval: every 8-12weeks Next Apt: [id number] Luling was provided resume writer's contact information and instructed to contact resume writer as needed for any changes to scheduling or concerns otherwise. is aware of actions to take if they feel unsafe, including calling the 's Crisis Line (#781); calling 911; or going to the nearest urgent care or emergency room. The is also aware of how to contact the clinic should the require additional services prior to the next appointment. Time spent on chart review, session, and documentation: 30minutes /es/ Olman Aguilar PharmD Clinical Pharmacist Practitioner Signed: 06/28/2024 15:49 [facility] AG[facility]ILAR [facility]
--- OUTSIDE RECORDS SUMMARY | 2024-08-18 13:12 | XMS_ITS ---
Author Name [place] Organization [place] Address [address] [place] [address] Care Team Providers Care Facility Maintenance Mechanic Name Role Phone ALEXANDR YODER Primary Care [...] (WNR) MEDICARE ADVANTAGE HUMAN A INSUR [facility] Mar 23, 2023 [id number] [phone] Ezekiel WILKERSON PATIENT Selected Encounter This section includes the information on record at [place] for the Encounter. Date/Time Encounter Type Encounter Description Reason Pro vider Source Jul 12, 2024 02:00 PM Outpatient Encounter ADMIN PAT ACTIVTIES (MASNONCT) IHE Encounter Template Text not used by [place] Plan of Treatment: Future Appointments (+ 6 [...] AMBULATORY - NONE [facility] [place] [facility] Jul 25, 2024 01:00 PM AMBULATORY - PSYCHIATRY [facility] [place] [facility] Jul 31, 2024 01:00 PM AMBULATORY - REHAB MEDICIN E [facility] [place] [facility] Jul 31, 2024 02:00 PM AMBULATORY - MEDICINE [facility] [place] [facility] Aug 08, 2024 08:30 AM AMBULATORY - MEDICINE [facility] [place] [facility] Aug 08, 2024 09:30 AM AMBULATORY - NONE [facility] [place] [facility] Aug 21, 2024 02:30 PM AMBULATORY - REHAB MEDICIN E [facility] [place] [facility] Aug 22, 2024 10:00 AM AMBULATORY - MEDICINE [facility] [place] [facility] Aug 29, 2024 11:00 AM AMBULATORY - PSYCHIATRY [facility] [place] [facility] Aug 29, 2024 11:30 AM AMBULATORY - PSYCHIATRY [facility] [place] [facility] Sep 14, 2024 11:00 AM AMBULATORY - REHAB MEDICIN E [facility] [place] [facility] Oct 23, 2024 02:30 PM AMBULATORY - MEDICINE [facility] [place] [facility] Nov 01, 2024 01:30 PM AMBULATORY - MEDICINE [facility] [place] [facility] Nov 28, 2024 03:00 PM AMBULATORY - MEDICINE [facility] [place] [facility] Active, Pending, and Scheduled Orders This [...] PM Consult Order SURGERY/CW M OUTPT Cons F[place] Hanger's Choice [facility] [place] [facility] Jul 31, 2024 02:19 PM Consult Order PHYSICAL T HERAPY/NHM OUTPT Cons [place] [facility] [place] [facility] Lab Results: +/- 30 days of [...] Range Comment Aug 08, 2024 10:07 AM [facility] BNP (Natriuretic Peptide Brain) Specimen Type: PLASMA No comment entered. Ordering Provider: ALEXANRD YODER Report Released Date/Time: Aug 08, 2024 08:51 AM Reporting Lab: [address] [id number] Performing Lab: [address] [address] BNP (Natriuretic Peptide Brain) 20 pg/mL 10-100 Aug 08, 2024 10:07 AM [facility] LIPID PANEL FASTING Specimen Type: SERUM No comment entered. Ordering Provider: ALEXANDR YODER Report Released Date/Time: Aug 08, 2024 08:51 AM Reporting Lab: [address] [address] Performing Lab: [address] [address] CHOLESTEROL 122 mg/dL TRIGLYCERIDE 117 mg/dL 0-150 LDL calculated 70 mg/dL 0-129 CHOL/HDL 4.2 HDL CHOLESTEROL 29 mg/dL L 40-60 Aug 08, 2024 10:07 AM [facility] BASIC METABOLIC PANEL (non-fasting) Specimen Type: SERUM No comment entered. Ordering Provider: ALEXANDR YODER Report Released Date/Time: Aug 08, 2024 08:51 AM Reporting Lab: [address] [address] Performing Lab: [address] [address] UREA NITROGEN 19 mg/dL 7-25 GLUCOSE 102 mg/dL H 65-100 SODIUM 139 mmol/L 135-145 POTASSIUM 4.3 mmol/L 3.5-5.0 CHLORIDE 107 mmol/L 100-110 CO2 23 meq/L 20-30 CREATININE, Serum 1.51 mg/dL H 0.50-1.40 eGFR(CKD-EPI 2020) 50 mL/min L >60 Aug 08, 2024 10:07 AM [facility] LIVER FUNCTION Specimen Type: SERUM No comment entered. Ordering Provider: ALEXANDR YODER Report Released Date/Time: Aug 08, 2024 08:51 AM Reporting Lab: [facility] [address] [facility] [address] Performing Lab: [facility] [address] [facility] [address] PROTEIN,TOTAL 6.6 g/dL 6.0-8.3 ALBUMIN 3.7 g/dL 3.5-5.0 ALKALINE PHOSPHATASE 96 U/L 40-150 AST 20 U/L 5-34 ALT 28 U/L BILIRUBIN, TOTAL 0.5 mg/dL 0.2-1.2 Aug 08, 2024 10:07 AM [facility] HEMOGLOBIN A1C PANEL Specimen Type: BLOOD Comment: [...] Aug 08, 2024 08:51 AM Reporting Lab: [facility] [address] [facility] [address] Performing Lab: [address] [address] HEMOGLOBIN A1C 6.0 H 4.0-5.6 Aug 08, 2024 10:07 AM [facility] TSH Specimen Type: SERUM No comment entered. Ordering Provider: ALEXANDR YODER Report Released Date/Time: Aug 08, 2024 08:51 AM Reporting Lab: [facility] [address] [facility] [address] Performing Lab: [place] [facility] [place] [facility] [address] [facility] [address] TSH 1.43 u[IU]/mL 0.35-5.00 Aug 08, 2024 10:07 AM [facility] CBC AND DIFF (AUTO) Specimen Type: BLOOD No comment entered. Ordering Provider: ALEXANDR YODER Report Released Date/Time: Aug 08, 2024 08:51 AM Reporting Lab: [facility] [address] [facility] [address] Performing Lab: [facility] [address] [facility] [address] WBC 6.37 10*3/uL 4.50-11.00 RBC 4.95 10*6/uL [...] took place. Date/Time Current Smoking Status Comment [facility] Jul 04, 2024 11:00 AM VA-TOBACCO FORMER USER [place] [facility] [place] [facility] Tobacco Use History This section includes a history of the smoking, or tobacco-related health factors, that were collected on or before the date of the Encounter. The data comes from the [place] facility where the Encounter took place. Date/Time Smoking Status/Tobac co Use Comment Facility Jul 04, 2024 11:00 AM VA-TOBACCO QUIT 5 TO < 15 YRS [facility] [place] [facility] Apr 07, 2023 01:30 PM VA-TOBACCO FORMER USER [facility] [place] [facility] Apr 07, 2023 01:30 PM VA-TOBACCO QUIT 5 TO < 15 YRS [facility] [place] [facility] May 07, 2022 09:30 AM VA-TOBACCO FORMER USER [facility] [place] [facility] May 07, 2022 09:30 AM VA-TOBACCO QUIT 1 TO < 5 YRS [facility] [place] [facility] May 15, 2021 08:45 AM VA-TOBACCO FORMER USER [facility] [place] [facility] May 15, 2021 08:45 AM VA-TOBACCO QUIT 1 TO < 5 YRS [facility] [place] [facility] Jun 04, 2020 10:30 AM VA-TOBACCO FORMER USER [facility] [place] [facility] Jun 04, 2020 10:30 AM VA-TOBACCO QUIT < 1 YEAR [facility] [place] [facility] May 23, 2019 09:36 AM VA-TOBACCO DOESNT USE WI 30 MIN WAKEUP [facility] [place] [facility] May 23, 2019 09:36 AM VA-TOBACCO USE 30 YEARS OR MORE [facility] [place] [facility] May 23, 2019 09:36 AM VA-TOBACCO USE ADVICE [facility] [place] [facility] May 23, 2019 09:36 AM VA-TOBACCO USE DETAIL ASSEMBLER NO [facility] May 23, 2019 09:36 AM VA-TOBACCO USE MED NO [facility] May 23, 2019 09:36 AM VA-TOBACCO USER EVERY DAY [facility] Apr 21, 2018 01:18 PM CURRENT SMOKER 1/2 pk a week [facility] Apr 21, 2018 01:18 PM V1-PT DECLINES REF TO TOBACCO CESS PRGM [facility] Apr 21, 2018 01:18 PM V1-PT DECLINES TOB ACCO CESSATION MEDS [facility] Apr 21, 2018 01:18 PM V1-PT THINKING ABO UT QUIT TOBACCO USE [facility] Oct 18, 2017 02:19 PM V1-PT NOT INTEREST ED IN QUIT TOBACCO USE [facility] Oct 04, 2017 01:55 PM CURRENT SMOKER .5 packs a day [facility] Advance Directives: All historical and current Section [...] Feb 13, 2003 ADVANCE DIRECTIVE KAT [facility]VIEDO [facility] Radiology Reports: +/- 30 days [...] the Encounter. The data comes from all [place] treatment facilities. Date/Time Radiology Report Provider Source Aug 08, 2024 11:06 AM KNEE 3 VIEWS (RIGHT): ANDRZEJ WILKERSON [id number] -1955 M Exm Date: AUG 08, 2024@11:06 Req Phys: PARESH,ALEXANDR ESTELLA Pat Loc: CWM/NO/PACT 5 (Req'g Loc) Img Loc: [facility] 1 Service: [place] [address] (Case [id number] COMPLETE) KNEE 3 VIEWS (RIGHT) (RAD Detailed) CPT:64517 Reason for Study: Right knee instability Clinical 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 Report Status: Verified Date Reported: AUG 08, 2024 Date Verified: AUG 08, 2024 Steel Roller E-Sig:/ES/CLEVELAND REEVES JR Report: Study: AP weight-bearing [...] Primary Interpreting Staff: CLEVELAND REEVES JR, Radiologist (Steel Roller) /CLEVELAND HERNANDEZ JR [facility] Aug 08, 2024 09:23 AM DUPLEX SCAN: EXTREMITY VEINS, UNILATERAL: ANDRZEJ WILKERSON [id number] -1955 M Exm Date: AUG 08, 2024@09:23 Req Phys: PARESHALEXANDR ESTELLA Pat Loc: CWM/NO/PACT 5 (Req'g Loc) Img Loc: ULTRASOUND Service: [place] [address] (Case [id number] COMPLETE) DUPLEX SCAN: EXTREMITY VEINS, UNI(US Detailed) CPT:88162 Proc Modifiers : RIGHT Reason for Study: Right lateral upper leg pain and right lower leg pain Clinical History: no palpable cord (+) edema h/o DVT Report Status: Verified Date Reported: AUG 08, 2024 Date Verified: AUG 08, 2024 Steel Roller E-Sig:/ES/CLEVELAND REEVES JR Report: Study: Right lower [...] Primary Interpreting Staff: CLEVELAND REEVES JR, Radiologist (Steel Roller) /CLEVELAND HERNANDEZ JR [facility] Jul 25, 2024 12:24 PM ULTRASOUND NECK (THYROID,HEAD,SOFT TISSUE): ANDRZEJ WILKERSON [id number] -1955 M Exm Date: JUL 25, 2024@12:24 Req Phys: ALEXANDR YODER Pat Loc: CWM/NO/PACT 5 (Req'g Loc) Img Loc: ULTRASOUND Service: [place] [address] (Case [id number] COMPLETE) ULTRASOUND NECK (THYROID,HEAD,SOF(US Detailed) CPT:91494 Reason for Study: Right axillary tenderness Clinical History: no nodules palpated but very ttp r/o reactive lymphadenopathy Report Status: Verified Date Reported: JUL 25, 2024 Date Verified: JUL 25, 2024 Steel Roller E-Sig:/ES/CLEVELAND REEVES JR Report: Study: Right axillary [...] Primary Interpreting Staff: CLEVELAND REEVES JR, Radiologist (Steel Roller) /CLEVELAND HERNANDEZ JR [place] [facility] Encounter Notes: All associated encounter notes This section contains the clinical notes associated to the Encounter. Date/Time Encounter Note(s) Provider Source Jul 12, 2024 02:00 PM TELEHEALTH CONSULT : LOCAL TITLE: CONSULT REPORT/TELEHEALTH STANDARD TITLE: TELEHEALTH CONSULT DATE OF NOTE: JUL 12, 2024@14:00 ENTRY DATE: JUL 12, 2024@14:00:15 AUTHOR: VINCENZO PHILLIP EXP COSIGNER: URGENCY: STATUS: COMPLETED Patient has successfully tested or used [place] [employer]. /ehrlinda/ VINCENZO PHILLIP SILK SCREEN REPAIRER TELEHEALTH CLINICAL IRON CARRIER Signed: 07/12/2024 14:00 VINCENZO PHILLIP [facility] ([id number])
--- OUTSIDE RECORDS SUMMARY | 2024-08-18 13:12 | XMS_ITS | Encounter Summary ---
Author Name [facility] Organization [facility] Address [address] [place] [address] Care Team Providers Care Pharmaceutical Representative Name Role Phone ALEXANDR YODER Primary [...] (WNR) MEDICARE ADVANTAGE HUMAN A INSUR ANCE [facility] Mar 23, 2023 [id number] [phone] Ezekiel WILKERSON PATIENT Selected Encounter This section includes the information on record at MD for the Encounter. Date/Time Encounter Type Encounter Description Reason Provider Source Jul 04, 2024 11:00 AM OFFICE O/P EST MOD 30 MIN PRIMARY CARE/MEDICINE ICD-10-CM I10 Essential (primary) hypertension PARESH,ALEXANDR ESTELLA E Encounter Template Text not used by MD Assessments - Encounter Diagnoses This section includes the primary and secondary diagnoses documented for the Encounter. Date/Time Primary/Secondary Diagnosis Diagnosis Name Provider Source Jul 04, 2024 01:41 PM PRIMARY Essential (primary) hypertension PARESH,ALEXANDR ESTELLA [facility] Jul 04, 2024 01:41 PM SECONDARY Chronic obstructive pulmonary disease, unspecified PARESH,ALEXANDR ESTELLA [facility] Jul 04, 2024 01:41 PM SECONDARY Gastro-esophageal reflux disease without esophagitis ALEXANDR YODER [facility] Jul 04, 2024 01:41 PM SECONDARY Pain in right upper arm ALEXANDR YODER [facility] Plan of Treatment: Future Appointments (+ 6 months) and Future Tests (+/- 45 days) The Plan of Treatment section includes future care activities for the patient from [facility] This section includes future appointments and future orders which are active, pending or scheduled. Future Appointments This section includes appointments that were scheduled to occur 6 months from the date of the Encounter, up to a maximum of 20 appointments. The data comes from all MD treatment facilities. Appointment Date/Time Appointment Type Appointme nt Facility Name Jul 10, 2024 11:00 AM AMBULATORY - REHAB MEDICIN E [facility] Jul 25, 2024 12:30 PM AMBULATORY - NONE [facility] Jul 25, 2024 01:00 PM AMBULATORY - PSYCHIATRY [facility] Jul 31, 2024 01:00 PM AMBULATORY - REHAB MEDICIN E [facility] Jul 31, 2024 02:00 PM AMBULATORY - MEDICINE [facility] Aug 08, 2024 08:30 AM AMBULATORY - MEDICINE [facility] Aug 08, 2024 09:30 AM AMBULATORY - NONE [facility] Aug 21, 2024 02:30 PM AMBULATORY - REHAB MEDICIN E [facility] Aug 22, 2024 10:00 AM AMBULATORY - MEDICINE [facility] Aug 29, 2024 11:00 AM AMBULATORY - PSYCHIATRY [facility] Aug 29, 2024 11:30 AM AMBULATORY - PSYCHIATRY [facility] Sep 14, 2024 11:00 AM AMBULATORY - REHAB MEDICIN E [facility] Oct 23, 2024 02:30 PM [facility] Nov 01, 2024 01:30 PM AMBULATORY - MED[facility] Nov 28, 2024 03:00 PM [facility] Active, Pending, and Scheduled Orders This section includes a listing of several types of active, pending, and scheduled orders, including clinic medications orders, diagnostic test orders, procedure orders and consult orders; where the start date of the order is 45 days before the date of the Encounter or 45 days after the date of theEncounter. The data comes from all MD treatment facilities. Test Date/Time Test Type Test Details Facility Name Jul 27, 2024 12:18 PM Consult Order SURGERY/CW M OUTPT Cons Special Education Case Manager's Choice [facility] Jul 31, 2024 02:19 PM Consult Order PHYSICAL T HERAPY/NHM OUTPT Cons Special Education Case Manager's Choice [facility] Vital Signs: All taken on the encounter date This section contains inpatient and outpatient Vital Signs collected on the date of the Encounter. Date/Time Temperature Pulse Blood Pressure Respiratory Rate SP02 Pain Height Weight Body Mass Index Source Jul 04, 2024 11:06 AM 145/84 245 [facility] Jul 04, 2024 11:05 AM 97.3 78 160/97 16 92 1 [facility] Social History: Smoking Status (Most current) [...] took place. Date/Time Current Smoking Status Comment [facility] Jul 04, 2024 11:00 AM VA-TOBACCO FORMER USER [facility] Tobacco Use History This section includes a history of the smoking, or tobacco-related health factors, that were collected on or before the date of the Encounter. The data comes from the MD facility where the Encounter took place. Date/Time Smoking Status/Tobac co Use Comment Facility Jul 04, 2024 11:00 AM MD-TOBACCO QUIT 5 TO < 15 YRS [facility] Apr 07, 2023 01:30 PM VA-TOBACCO FORMER USER [facility] Apr 07, 2023 01:30 PM VA-TOBACCO QUIT 5 TO < 15 YRS [facility] May 07, 2022 09:30 AM VA-TOBACCO FORMER USER [facility] May 07, 2022 09:30 AM VA-TOBACCO QUIT 1 TO < 5 YRS [facility] May 15, 2021 08:45 AM VA-TOBACCO FORMER USER [facility] May 15, 2021 08:45 AM VA-TOBACCO QUIT 1 TO < 5 YRS [facility] Jun 04, 2020 10:30 AM VA-TOBACCO FORMER USER [facility] Jun 04, 2020 10:30 AM VA-TOBACCO QUIT < 1 YEAR [facility] May 23, 2019 09:36 AM VA-TOBACCO DOESNT USE WI 30 MIN WAKEUP [facility] May 23, 2019 09:36 AM VA-TOBACCO USE 30 YEARS OR MORE [facility] May 23, 2019 09:36 AM VA-TOBACCO USE ADVICE [facility] May 23, 2019 09:36 AM 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 [facility] May 23, 2019 09:36 AM VA-TOBACCO USE MED NO [facility] May 23, 2019 09:36 AM VA-TOBACCO USER EVERY DAY [facility] Apr 21, 2018 01:18 PM CURRENT SMOKER 1/2 pk a week [facility] Apr 21, 2018 01:18 PM V1-PT DECLINES REF TO TOBACCO CESS PRGM [facility] Apr 21, 2018 01:18 PM V1-PT DECLINES TOB ACCO CESSATION MEDS [facility] Apr 21, 2018 01:18 PM V1-PT THINKING ABO UT QUIT TOBACCO USE [facility] Oct 18, 2017 02:19 PM V1-PT NOT INTEREST ED IN QUIT TOBACCO USE [facility] Oct 04, 2017 01:55 PM CURRENT SMOKER .5 packs a day [facility] Advance Directives: All historical and current Section [...] Feb 13, 2003 [facility] Radiology Reports: +/- 30 days of the [...] the Encounter. The data comes from all MD treatment facilities. Date/Time Radiology Report Provider Source Jul 25, 2024 12:24 PM ULTRASOUND NECK (THYROID,HEAD,SOFT TISSUE): ANDRZEJ WILKERSON [id number] -[id number] M Exm Date: JUL 25, 2024@12:24 Req Phys: ALEXANDR YODER Pat Loc: CWM/NO/PACT 5 (Req'g Loc) Img Loc: ULTRASOUND Service: [place] [id number] (Case [id number] COMPLETE) ULTRASOUND NECK (THYROID,HEAD,SOF(US Detailed) CPT:94978 Reason for Study: Right axillary tenderness Clinical History: no nodules palpated but very ttp r/o reactive lymphadenopathy Report Status: Verified Date Reported: JUL 25, 2024 Date Verified: JUL 25, 2024 Publishing Specialist E-Sig:/ES/CLEVELAND REEVES JR Report: Study: Right axillary [...] Primary Interpreting Staff: CLEVELAND REEVES JR, Radiologist (Publishing Specialist) /CLEVELAND HERNANDEZ JR [facility] Encounter Notes: All associated encounter notes This section contains the clinical notes associated to the Encounter. Date/Time Encounter Note(s) Provider Source Jul 04, 2024 11:12 AM PRIMARY CARE NURSE PRACTITIONER OUTPATIENT NOTE: LOCAL TITLE: NURSE PRACTITIONER OUTPATIENT NOTE STANDARD TITLE: PRIMARY CARE NURSE PRACTITIONER OUTPATIENT NOTE DATE OF NOTE: JUL 04, 2024@11:12 ENTRY DATE: JUL 04, 2024@11:12:45 AUTHOR: ALEXANDR YODER EXP COSIGNER: URGENCY: STATUS: COMPLETED Pt is a 69 who comes in for follow up of medical problems as noted below. HPI: Right arm pit pain down to right hand feels TTP in right axilla denies trauma or chest pain or dyspnea COPD following [facility], he had Echocardiogram done by them also had CT scan found to have 8mm nodule, The echocardiogram showed some thickiness in one part of heart no records yet we will get those, he had 14 day holtor monitor he was told extra heartbeat we will get records of that as well. he was on trilogy but that was too high steroids so he was changed back to wixela he remains on Spiriva both Rx'd by pulmonary he follows up with them after repeat CT scan HTN trying to loose the weight BP slightly elevated today GERD and barrets, takes amitryptiline daily, also has upper endoscopy scheduled in october 2024 PMH: Active problems - Computerized Problem List is the source for the followin. 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 Colonoscopy normal [facility] 10/2021-- Repeat colonoscopy for screening purposes on 10/2031 3. Degenerative disc disease moderate to severe lumbar DDD on xray 08/2022 4. Depression 5. Sleep apnea 6. Supraventricular tachycardia 05/13/21 [facility] Successful Ablation 7. HTN - Hypertension ([facility] [id number]) 8. Anxiety disorder 9. H/O: gastric ulcer reports approximately 15 years ago. 10. Steatosis of liver 05/2019 - Liver labs - wnl 11. Partial tear, knee, anterior cruciate ligament s/p fall - right knee trauma ( seen [facility]/ 05/23/19 06/07/19 - MRI - [facility] - anterior Cruciate ligament tear Orthopedical [...] Obesity 18. Patient requires hospitalization sent to [facility] - for DVT ( chest PAIN) 19. History of surgery Mastoid - left ear - in [facility] [place]ole[place]sectomy [place] right knee ? arthroscopy ( has scar) [...] 2 PUFFS ACTIVE BY MOUTH ONCE DAILY Active Non-VA Medications Status 1) Non-VA OTHER CAP/TAB BY MOUTH ACTIVE 16 Total Medications Allergies: BEE STINGS, PENICILLIN, DOXYCYCLINE VITAL SIGNS: 97.3 F [36.3 C] (07/04/2024 11:05) 78 (07/04/2024 11:05) 16 (07/04/2024 11:05) 145/84 (07/04/2024 11:06) 1 (07/04/2024 11:05) 65 in [165.1 cm] (07/26/2023 14:01) 245 lb [111.13 kg] (07/04/2024 11:06) BMI: 40.9 ROS General: no fever, no unexplained weight loss or gain CV: denies CP, palpitations Lung: denies Dyspnea or wheezing Abd: denies n/v/d Ext: denies edema Psych: denies SI Neuro: denies dizziness, falls, PILLAI PHYSI BEATRIS EXAM GENERAL: well appearing in NAD, speeking in clear sentences. SKIN: Clean, dry intact no rashes , lesions or nodules observed. RESP: CTAB, no wheezing or Rales. Cards: S1 S2 RRR, No m/r/g no JVD, No Pedal Edema, Distal Pulses palpable NEURO CN II-XII grossly intactMENTAL A&Ox3 Appropriate, Pleasant, Cooperative LAB RESULTS LAST 1440 HRS - NONE FOUND Future Clinic Visits 07/25/2024 13:00 CWM/NO/MHC/COOK 08/29/2024 11:30 CWM/NO/MHC/CLP2 10/02/2024 14:00 CWM/NO/PODIATRY/NAIL 12/06/2024 15:00 CWM/NO/OTOLARYNGOLOGY ASSESSMENT AND PLAN: Axillary pain -US ordered COPD -Cont following [facility], he had Echocardiogram -Had CT showing incidental nodule, has f/u CT in a few weeks -Cont wixela and Spiriva both Rx'd by pulmonary -Uses Albuterol PRN HTN -BP slightly elevated today -He will check home readings over the next 10 days -return in 1-2 weeks with home readings -consider adding agent to the Amlodipine 10mg if needed -Cont with salt reduction and weight loss GERD -Also with barretts -Follows with [facility] GI -Cont amitryptiline HS -Cont Famotidine 20mg daily and ompreazole increasd to 40mg per GI suggestion -upper endoscopy scheduled in october 2024 Return to clinic to see me in 2 weeks, RTC sooner if needed. Clinical Reminders Initial Lung Cancer Screen (Provider): Chest CT within 12 months outside of this MD that assesses pulmonary nodules. Patient is not a current candidate for the lung cancer screening program. Date of Chest CT May 23, 2024 Results: 8mm nodule following with [facility] HTN Assess for Elevated BP>=140/90: The patient's blood pressure is usually adequately controlled. No medication changes are indicated at this time. Comment: he will check at home and return in 1-2 weeks for HTN f/u /herlnida/ JR JOSEPH Nurse Practitioner Signed: 07/04/2024 13:40 ALEXANDR YODER [facility] Jul 04, 2024 11:07 AM PREVENTIVE MEDICINE NURSING NOTE: LOCAL TITLE: CLINICAL REMINDERS/NURSING STANDARD TITLE: PREVENTIVE MEDICINE NURSING NOTE DATE OF NOTE: JUL 04, 2024@11:07 ENTRY DATE: JUL 04, 2024@11:07:27 AUTHOR: DONTA MANNING EXP COSIGNER: URGENCY: STATUS: COMPLETED Tobacco Use Screening: The patient is a former tobacco user. The patient quit five to less than fifteen years ago. /herlinda/ DONTA MANNING REGISTERED NURSE Signed: 07/04/2024 11:09 DONTA MANNING [facility]
--- OUTSIDE RECORDS SUMMARY | 2024-08-18 13:13 | XMS_ITS | Encounter Summary ---
Author Name [facility] [place] [facility] [place] Organization [facility] [place] [facility] [place] Address [address] [place] [address] Care Team Providers Care Training Program Developer Name Role Phone ALEXANDR YODER Primary [...] (WNR) MEDICARE ADVANTAGE HUMAN A INSUR ANCE [facility] Mar 23, 2023 [id number] [phone] Ezekiel WILKERSON PATIENT Selected Encounter This section includes the information on record at [place] for the Encounter. Date/Time Encounter Type Encounter Description Reason Provider Source Jul 31, 2024 02:00 PM OFFICE O/P EST MOD 30 MIN PRIMARY CARE/MEDICINE ICD-10-CM M79.651 Pain in right thigh PARESHALEXANDR LOPEZ E Encounter Template Text not used by [place] Assessments - Encounter Diagnoses This section includes the primary and secondary diagnoses documented for the Encounter. Date/Time Primary/Secondary Diagnosis Diagnosis Name Provider Source Jul 31, 2024 02:41 PM PRIMARY Pain in right thigh PARESHALEXANDR LOPEZ [place] [facility] [place] [facility] Jul 31, 2024 02:41 PM SECONDARY Localized swelling, mass and lump, unspecified PARESHALEXANDR LOPEZ [place] [facility] [place] [facility] Jul 31, 2024 02:41 PM SECONDARY Solitary pulmonary nodule ALEXANDR YODER [facility] Plan of Treatment: Future Appointments (+ 6 months) and Future Tests (+/- 45 days) The Plan of Treatment section includes future care activities for the patient from all [place] [facility] This section includes future appointments and future orders which are active, pending or scheduled. Future Appointments This section includes appointments that were scheduled to occur 6 months from the date of the Encounter, up to a maximum of 20 appointments. The data comes from all [place] treatment facilities. Appointment Date/Time Appointment Type Appointme nt Facility Name Aug 08, 2024 08:30 AM AMBULATORY - [place]ICINE [place] [facility] [place] [facility] Aug 08, 2024 09:30 AM AMBULATORY - NONE [place] [facility] [place] [facility] Aug 21, 2024 02:30 PM AMBULATORY - REHAB MEDICIN [place] [facility] [place] [facility] Aug 22, 2024 10:00 AM AM[place] - [place]IC[place] [facility] [place] [facility] Aug 29, 2024 11:00 AM AMBUL[place]ORY - [place]IATRY [place] [facility] [place] [facility] Aug 29, 2024 11:30 AM AMBUL[place]ORY [place]IATRY [place] [facility] [place] [facility] Sep 14, 2024 11:00 AM AMBULATORY - [place]ICIN [place] [facility] [place] [facility] Oct 23, 2024 02:30 PM AM[place]UL[place]ORY - [place]IC[place] [facility] [place] [facility] Nov 01, 2024 01:30 PM AM[place]UL[place]ORY - [place]IC[place] [facility] [place] [facility] Nov 28, 2024 03:00 PM AM[place]UL[place]ORY - [place]ICINE [place] [facility] [place] [facility] Active, Pending, and Scheduled Orders This section includes a listing of several types of active, pending, and scheduled orders, including clinic medications orders, diagnostic test orders, procedure orders and consult orders; where the start date of the order is 45 days before the date of the Encounter or 45 days after the date of theEncounter. The data comes from all [facility]. Test Date/Time Test Type Test Details Facility Name Jul 27, 2024 12:18 PM Consult Order SURGERY/CW M OUTPT [facility] [place] [facility] Jul 31, 2024 02:19 PM Consult Order PHYSICAL T HERAPY/NHM OUTPT [facility] Lab Results: +/- 30 days of [...] Range Comment Aug 08, 2024 10:07 AM [facility] BNP (Natriuretic Peptide Brain) Specimen Type: PLASMA No comment entered. Ordering Provider: ALEXANDR YODER Report Released Date/Time: Aug 08, 2024 08:51 AM Reporting Lab: [facility] [address] [facility] [address] Performing Lab: [address] [address] BNP (Natriuretic Peptide Brain) 20 pg/mL 10-100 Aug 08, 2024 10:07 AM [facility] HEMOGLOBIN A1C PANEL Specimen Type: BLOOD Comment: [...] Aug 08, 2024 08:51 AM Reporting Lab: [facility] [address] [facility] [address] Performing Lab: [address] [address] HEMOGLOBIN A1C 6.0 H 4.0-5.6 Aug 08, 2024 10:07 AM [facility] LIPID PANEL FASTING Specimen Type: SERUM No comment entered. Ordering Provider: ALEXANDR YODER Report Released Date/Time: Aug 08, 2024 08:51 AM Reporting Lab: [facility] [address] [facility] [address] Performing Lab: [facility] [address] [facility] [address] CHOLESTEROL 122 mg/dL TRIGLYCERIDE 117 mg/dL 0-150 LDL calculated 70 mg/dL 0-129 CHOL/HDL 4.2 HDL CHOLESTEROL 29 mg/dL L 40-60 Aug 08, 2024 10:07 AM [facility] BASIC METABOLIC PANEL (non-fasting) Specimen Type: SERUM No comment entered. Ordering Provider: ALEXANDR YODER Report Released Date/Time: Aug 08, 2024 08:51 AM Reporting Lab: [facility] [address] [facility] [address] Performing Lab: [address] [address] UREA NITROGEN 19 mg/dL 7-25 GLUCOSE 102 mg/dL H 65-100 SODIUM 139 mmol/L 135-145 POTASSIUM 4.3 mmol/L 3.5-5.0 CHLORIDE 107 mmol/L 100-110 CO2 23 meq/L 20-30 CREATININE, Serum 1.51 mg/dL H 0.50-1.40 eGFR(CKD-EPI 2020) 50 mL/min L >60 Aug 08, 2024 10:07 AM [facility] TSH Specimen Type: SERUM No comment entered. Ordering Provider: ALEXANDR YODER Report Released Date/Time: Aug 08, 2024 08:51 AM Reporting Lab: [facility]USE[facility] [address] [facility] [address] Performing Lab: [facility]ENTERUSE[address] [address] TSH 1.43 u[IU]/mL 0.35-5.00 Aug 08, 2024 10:07 AM [facility] LIVER FUNCTION Specimen Type: SERUM No comment entered. Ordering Provider: ALEXANDR YODER Report Released Date/Time: Aug 08, 2024 08:51 AM Reporting Lab: [facility] [address] [facility] [address] Performing Lab: [facility] [address] [facility] [address] PROTEIN,TOTAL 6.6 g/dL 6.0-8.3 ALBUMIN 3.7 g/dL 3.5-5.0 ALKALINE PHOSPHATASE 96 U/L 40-150 AST 20 U/L 5-34 ALT 28 U/L BILIRUBIN, TOTAL 0.5 mg/dL 0.2-1.2 Aug 08, 2024 10:07 AM [facility] CBC AND DIFF (AUTO) Specimen Type: BLOOD No comment entered. Ordering Provider: ALEXANDR YODER Report Released Date/Time: Aug 08, 2024 08:51 AM Reporting Lab: [facility] [address] [facility] [address] Performing Lab: [address] [address] WBC 6.37 10*3/uL 4.50-11.00 RBC 4.95 10*6/uL [...] 0.0 0.0-0.0 NRBC, ABS 0.00 10*3/uL 0.00-0.00 Vital Signs: All taken on the encounter date This section contains inpatient and outpatient Vital Signs collected on the date of the Encounter. Date/Time Temperature Pulse Blood Pressure Respiratory Rate SP02 Pain Height Weight Body Mass Index Source Jul 31, 2024 02:03 PM 98.3 82 134/91 16 93 2 [place] [facility] [facility] Social History: Smoking Status (Most current) and Tobacco Use (All prior to encounter date) This section includes the most current, and the historical, smoking and tobacco- related health factors from the [place] facility where the Encounter took place. Current Smoking Status This section includes the most current smoking, or tobacco-related health factor, from the [place] facility where the Encounter took place. Date/Time Current Smoking Status Comment [facility] Jul 04, 2024 11:00 AM VA-TOBACCO FORMER USER [place] [facility] Tobacco Use History This section includes [...] [place] [facility] Apr 07, 2023 01:30 PM VA-TOBACCO FORMER USER [place] [facility] [place] [facility] Apr 07, 2023 01:30 PM VA-TOBACCO [...] 04, 2020 10:30 AM VA-TOBACCO FORMER USER [facility] Jun 04, 2020 10:30 AM VA-TOBACCO QUIT < 1 YEAR [facility] May 23, 2019 09:36 AM VA-TOBACCO DOESNT USE WI 30 MIN WAKEUP [facility] May 23, 2019 09:36 AM VA-TOBACCO USE 30 YEARS OR MORE [facility] May 23, 2019 09:36 AM VA-TOBACCO USE ADVICE [facility] May 23, 2019 09:36 AM 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 [facility] May 23, 2019 09:36 AM VA-TOBACCO USE MED NO [facility] May 23, 2019 09:36 AM VA-TOBACCO USER EVERY DAY [facility] Apr 21, 2018 01:18 PM CURRENT SMOKER 1/2 pk a week [facility] Apr 21, 2018 01:18 PM V1-PT DECLINES REF TO TOBACCO CESS PRGM [facility] Apr 21, 2018 01:18 PM V1-PT DECLINES TOB ACCO CESSATION MEDS [facility] Apr 21, 2018 01:18 PM V1-PT THINKING ABO UT QUIT TOBACCO USE [facility] Oct 18, 2017 02:19 PM V1-PT NOT INTEREST ED IN QUIT TOBACCO USE [facility] Oct 04, 2017 01:55 PM CURRENT SMOKER .5 packs a day [facility] Advance Directives: All historical [...] Feb 13, 2003 ADVANCE DIRECTIVE KAT OVIEDO [facility] Radiology Reports: +/- 30 days of [...] the Encounter. The data comes from all [place] treatment facilities. Date/Time Radiology Report Provider Source Aug 08, 2024 11:06 AM KNEE 3 VIEWS (RIGHT): ANDRZEJ WILKERSON ELIZABETH [id number] -1955 M Ex Date: AUG 08, 2024@11:06 Req Phys: ALEXANDR YODER Pat Loc: CWM/NO/PACT 5 (Req'g Loc) Img Loc: [facility] Service: [place] [address] (Case [id number] COMPLETE) KNEE 3 VIEWS (RIGHT) (RAD Detailed) CPT:03547 Reason for Study: Right knee instability Clinical 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 Report Status: Verified Date Reported: AUG 08, 2024 Date Verified: AUG 08, 2024 Crop Farm Helper E-Sig:/ES/CLEVELAND REEVES JR Report: Study: AP weight-bearing [...] Primary Interpreting Staff: CLEVELAND REEVES JR, Radiologist (Crop Farm Helper) /CLEVELAND HERNANDEZ JR [facility] Aug 08, 2024 09:23 AM DUPLEX SCAN: EXTREMITY VEINS, UNILATERAL: LUPILLOANDRZEJ JOHNSON [id number] 1955 M Exm Date: AUG 08, 2024@09:23 Req Phys: ALEXANDR YODER Pat Loc: CWM/NO/PACT 5 (Req'g Loc) Img Loc: ULTRASOUND Service: [place] [address] (Case [id number] COMPLETE) DUPLEX SCAN: EXTREMITY VEINS, UNI(US Detailed) CPT:79006 Proc Modifiers : RIGHT Reason for Study: Right lateral upper leg pain and right lower leg pain Clinical History: no palpable cord (+) edema h/o DVT Report Status: Verified Date Reported: AUG 08, 2024 Date Verified: AUG 08, 2024 Crop Farm Helper E-Sig:/ES/CLEVELAND REEVES JR Report: Study: Right lower [...] Primary Interpreting Staff: CLEVELAND REEVES JR, Radiologist (Crop Farm Helper) /CLEVELAND HERNANDEZ JR [facility] Jul 25, 2024 12:24 PM ULTRASOUND NECK (THYROID,HEAD,SOFT TISSUE): ANDRZEJ WILKERSON [id number] [facility]1955 M Exm Date: JUL 25, 2024@12:24 Req Phys: ALEXANDR YODER Pat Loc: CWM/NO/PACT 5 (Req'g Loc) Img Loc: ULTRASOUND Service: [place] [address] (Case [id number] COMPLETE) ULTRASOUND NECK (THYROID,HEAD,SOF(US Detailed) CPT:71136 Reason for Study: Right axillary tenderness Clinical History: no nodules palpated but very ttp r/o reactive lymphadenopathy Report Status: Verified Date Reported: JUL 25, 2024 Date Verified: JUL 25, 2024 Crop Farm Helper E-Sig:/ES/CLEVELAND REEVES JR Report: Study: Right axillary [...] Primary Interpreting Staff: CLEVELAND REEVES JR, Radiologist (Crop Farm Helper) /EAD CLEVELAND REEVES JR [facility] Encounter Notes: All associated encounter notes This section contains the clinical notes associated to the Encounter. Date/Time Encounter Note(s) Provider Source Jul 31, 2024 02:17 PM PRIMARY CARE NURSE PRACTITIONER OUTPATIENT NOTE: LOCAL TITLE: NURSE PRACTITIONER OUTPATIENT NOTE STANDARD TITLE: PRIMARY CARE NURSE PRACTITIONER OUTPATIENT NOTE DATE OF NOTE: JUL 31, 2024@14:17 ENTRY DATE: JUL 31, 2024@14:18:01 AUTHOR: ALEXANDR YODER EXP COSIGNER: URGENCY: STATUS: COMPLETED Pt is a 69 who comes in for follow up of medical problems as noted below. HPI: Right lateral thigh pain, feels like a burning and cannot sleep on that side denies redness rash linear line or shingles like rash, he denies swelling or pain down leg, he is not sedentary and denies recent hospitalization. He denies chest pain shortness of breath or palpitations VSS of note he is seeing OT for his right hand and would like to do PT with them as well 8mm single pulmonary nodule follow with [facility]. He has repeat CT scan next week and sees Pulm again on 08/08 Right axilla tender nodule. US was done showing 3mm Cyst since painful he would like to talk with general surgery about possible removal, awaiting appt to be scheduled PMH: Active problems - Computerized Problem List is the source for the followin. 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 Colonoscopy normal [facility] 10/2021-- Repeat colonoscopy for screening purposes on 10/2031 4. Degenerative disc disease moderate to severe lumbar DDD on xray 08/2022 5. Depression 6. Sleep apnea 7. Supraventricular tachycardia 05/13/21 [facility] Successful Ablation 8. HTN - Hypertension ([facility] [id number]) 9. Anxiety disorder 10. H/O: gastric ulcer reports approximately 15 years ago. 11. Steatosis of liver 05/2019 - Liver labs - wnl 12. Partial tear, knee, anterior cruciate ligament s/p fall - right knee trauma ( seen [facility]/ UC 05/23/19 06/07/19 - MRI - [facility] - anterior Cruciate ligament tear Orthopedical surgical consult - 13. Chronic kidney disease stage 2 GFR 54 14. Ocular rosacea 15. Radioactive iodine-induced hypothyroidism MED:LEVOTHYROXINE NA (SYNTHROID) 0.15MG 16. Obesity 17. History of surgery Mastoid - left ear - in [facility] cholecystectomy - [place] right knee ? arthroscopy ( has scar) - surgery childhood proptosis left eye requiring surgical intervention in 2009 18. Chronic obstructive lung disease MED: ALBUTEROL 100/IPRATRO, ALBUTEROL 90MCG Follows with [facility] 19. Obesity 20. H/O: Deep vein thrombosis per pt report - upper arm ( [facility] ) Allergies: BEE STINGS, PENICILLIN, DOXYCYCLINE The following VA and Non-VA meds were reconciled with patient: Active and Recently Outpatient Medications (excluding Supplies): Active Outpatient Medications Status 1) ALBUTEROL 3/IPRATROP 0.5MG/3ML INHL 3ML INHALE 1 VIAL (3ML) ACTIVE IN NEBULIZER TWICE DAILY 2) ALBUTEROL 90MCG (CFC-F) 200D ORAL INHL INHALE 2 PUFFS BY ACTIVE MOUTH EVERY 4 TO 6 HOURS NEEDED FOR WHEEZING OR SHORTNESS OF BREATH 3) AMITRIPTYLINE HCL 10MG TAB TAKE ONE TABLET BY MOUTH AT ACTIVE BEDTIME FOR 14 DAYS, THEN TAKE TWO TABLETS AT BEDTIME 4) AMLODIPINE BESYLATE 10MG TAB TAKE ONE TABLET BY MOUTH ONCE ACTIVE DAILY FOR BLOOD PRESSURE/HEART, DO NOT TAKE WITH GRAPEFRUIT JUICE NOTE NEW TABLET STRENGTH/INCREASED DOSE 5) ASPIRIN 325MG EC TAB TAKE ONE TABLET BY MOUTH ONCE DAILY TO ACTIVE PREVENT STROKE/HEART ATTACK Indication: FOR MYOCARDIAL REINFARCTION PREVENTION 6) BUSPIRONE HCL 10MG TAB TAKE TWO TABLETS BY MOUTH TWICE DAILY ACTIVE Indication: FOR ANXIETY 7) CETIRIZINE HCL 10MG TAB TAKE ONE TABLET BY MOUTH ONCE DAILY ACTIVE Indication: FOR ALLERGIES 8) EPINEPHRINE (EQV-EPI-PEN) 0.3MG/0.3ML INJECT DIRECTED ACTIVE INTRAMUSCULARLY ONE TIME Indication: BEE STINGS 9) ESCITALOPRAM OXALATE 20MG TAB TAKE ONE TABLET BY MOUTH ONCE ACTIVE DAILY FOR MOOD/DEPRESSION Indication: FOR MAJOR DEPRESSIVE DISORDER 10) FAMOTIDINE 20MG TAB TAKE ONE TABLET BY MOUTH ONCE DAILY FOR ACTIVE STOMACH ACID Indication: FOR GASTROESOPHAGEAL REFLUX DISEASE 11) FLUTICAS 500/SALMETEROL 50 INHL DISK 60 INHALE 1 PUFF BY ACTIVE MOUTH EVERY 12 HOURS - RINSE MOUTH AFTER USE 12) LEVOTHYROXINE NA (SYNTHROID) 150MCG TAB TAKE ONE TABLET BY ACTIVE MOUTH EVERY MORNING 30 MINUTES BEFORE BREAKFAST FOR THYROID - TAKE ON AN EMPTY STOMACH WITH A FULL GLASS OF WATER 13) OMEPRAZOLE 20MG EC CAP TAKE TWO CAPSULES BY MOUTH EVERY ACTIVE MORNING 30 MINUTES BEFORE BREAKFAST Indication: FOR GASTROESOPHAGEAL REFLUX DISEASE 14) TIOTROPIUM 2.5MCG/ACTUAT 60D ORAL INHL INHALE 2 PUFFS BY ACTIVE MOUTH ONCE DAILY Active Non-VA Medications Status 1) Non-VA OTHER CAP/TAB BY MOUTH ACTIVE Indication: UNKNOWN 15 Total Medications Allergies: BEE STINGS, PENICILLIN, DOXYCYCLINE VITAL SIGNS: 98.3 F [36.8 C] (07/31/2024 14:03) 82 (07/31/2024 14:03) 16 (07/31/2024 14:03) 134/91 (07/31/2024 14:03) 2 (07/31/2024 14:03) 65 in [165.1 cm] (07/26/2023 14:01) 245 lb [111.13 kg] (07/04/2024 11:06) BMI: 40.9 ROS General: no fever, no unexplained weight loss or gain CV: denies CP, palpitations Lung: denies Dyspnea or wheezing Abd: denies n/v/d : denies dysuria, penile d/c, hematuria Ext: denies edema Psych: denies SI Neuro: denies dizziness, falls, PILLAI PHYSI BEATRIS EXAM GENERAL: well appearing in NAD, speaking in clear sentences. SKIN: Clean, dry intact no rashes , lesions or nodules observed. RESP: CTAB, no wheezing or Rales. Cards: S1 S2 RRR, No m/r/g no JVD, No Pedal Edema, Distal Pulses palpable GI: Soft NT/ND, (+) BSx4, no rebound or guarding NEURO CN II-XII grossly intact MENTAL A&Ox3 Appropriate, Pleasant, Cooperative LAB RESULTS LAST 1440 HRS - NONE FOUND Future Clinic Visits 08/21/2024 14:30 CWM/NO/OCCUPATIONAL THERA 08/29/2024 11:00 CWM/NO/MHC/COOK 08/29/2024 11:30 CWM/NO/MHC/CLP2 10/02/2024 14:00 CWM/NO/PODIATRY/NAIL 11/28/2024 15:00 CWM/NO/OTOLARYNGOLOGY ASSESSMENT AND PLAN: Right thigh pain -no dermatomal rash -low wells criteria unlikely upper thigh pain -PT order placed -APAP as needed, heat and ice -If worsening pain, edema redness lowss of sensation needs to go to ER Pulmonary nodule -follow with [facility]. Right axilla tender nodule US was done showing 3mm Cyst since painful he would like to talk with general surgery about possible removal, awaiting appt to be scheduled Return to clinic to see me in months, RTC sooner if needed. Clinical Reminders HIV Screening: Patient has been offered HIV testing and has declined. I have explained that HIV testing is recommended for all adults, even if all risk factors are absent. The patient was educated on the risk of delayed screening. Medication Reconciliation: Outpatient: Has the patient been taking medications as documented in the EMLR? YES: The patient has been taking medications as documented in the EMLR. Essential Medication List for Review used to complete this medication reconciliation. INCLUDED IN THIS LIST: Alphabetical list of active outpatient prescriptions dispensed from this [place] (local) and dispensed from another [place] or [facility] facility (remote) as well [...] provider. /herlinda/ JR JOSEPH Nurse Practitioner Signed: 07/31/2024 14:39 ALEXANDR YODER [place] [facility]
--- OUTSIDE RECORDS SUMMARY | 2024-08-18 13:13 | XMS_ITS ---
Author Name [facility] [place] [facility] [place] Address [address] [place] [address] Care Team Providers Care Craniologist Name Role Phone ALEXANDR YODER Primary Care [...] Name Patient's Relationship to Policy [place] [facility] (WNR) MEDICARE ADVANTAGE HUMAN A [facility] Mar 23, 2023 [id number] [phone] Ezekiel WILKERSON PATIENT Selected Encounter This section includes the information on record at [place] for the Encounter. Date/Time Encounter Type Encounter Description Reason Provider Source Aug 07, 2024 12:46 PM Outpatient Encounter TELEPHONE TRIAGE MELIA SOTO Chucky Encounter Template Text not used by [place] Plan of Treatment: Future Appointments (+ 6 [...] MEDICINE [facility] [place] [facility] Aug 08, 2024 09:30 AM AMBULATORY - NONE [facility] [place] [facility] Aug 21, 2024 02:30 PM AMBULATORY - REHAB MEDICIN E [facility] [place] [facility] Aug 22, 2024 10:00 AM AMBULATORY - MEDICINE [facility] [place] [facility] Aug 29, 2024 11:00 AM AMBULATORY - PSYCHIATRY [facility] [place] [facility] Aug 29, 2024 11:30 AM AMBULATORY - PSYCHIATRY [facility] [place] [facility] Sep 14, 2024 11:00 AM AMBULATORY - REHAB MEDICIN E [facility] [place] [facility] Oct 23, 2024 02:30 PM AMBULATORY - MEDICINE [facility] [place] [facility] Nov 01, 2024 01:30 PM AMBULATORY - MEDICINE [facility] [place] [facility] Nov 28, 2024 03:00 PM [place]UL[place]ORY - [place]INE [place] [facility] Active, Pending, and Scheduled Orders This section includes a listing of several types of active, pending, and scheduled orders, including clinic medications orders, diagnostic test orders, procedure orders and consult orders; where the start date of the order is 45 days before the date of the Encounter or 45 days after the date of theEncounter. The data comes from all [place] treatment facilities. Test Date/Time Test Type Test Details Facility Name Jul 27, 2024 12:18 PM Consult Order SURGERY/CW M OUTPT Cons [facility] [place] [facility] Jul 31, 2024 02:19 PM Consult Order PHYSICAL T HERAPY/NHM OUTPT Cons [facility] Lab Results: +/- 30 days of the encounter This section includes the Chemistry and Hematology Lab Results on record with [place] for the patient. Radiology Reports and Pathology Reports are provided separately, in subsequent sections. Lab Results This section contains the Chemistry/Hematology Results that were resulted 30 days before or 30 daysafter the date of the Encounter. Date/Time Source Result Type Result - Unit Interpretation Reference Range Comment Aug 08, 2024 10:07 AM [facility] BNP (Natriuretic Peptide Brain) Specimen Type: PLASMA No comment entered. Ordering Provider: ALEXANDR YODER Report Released Date/Time: Aug 08, 2024 08:51 AM Reporting Lab: [facility] [address] [address] Performing Lab: [address] [address] BNP (Natriuretic Peptide Brain) 20 pg/mL 10-100 Aug 08, 2024 10:07 AM [facility] HEMOGLOBIN A1C PANEL Specimen Type: BLOOD [...] Aug 08, 2024 08:51 AM Reporting Lab: [address] [address] Performing Lab: [address] [address] HEMOGLOBIN A1C 6.0 H 4.0-5.6 Aug 08, 2024 10:07 AM [facility] LIPID PANEL FASTING Specimen Type: SERUM No comment entered. Ordering Provider: ALEXANDR YODER Report Released Date/Time: Aug 08, 2024 08:51 AM Reporting Lab: [address] [address] Performing Lab: [address] [address] CHOLESTEROL 122 mg/dL TRIGLYCERIDE 117 mg/dL 0-150 LDL calculated 70 mg/dL 0-129 CHOL/HDL 4.2 HDL CHOLESTEROL 29 mg/dL L 40-60 Aug 08, 2024 10:07 AM [facility] LIVER FUNCTION Specimen Type: SERUM No comment entered. Ordering Provider: ALEXANDR YODER Report Released Date/Time: Aug 08, 2024 08:51 AM Reporting Lab: [facility] [address] [facility] [address] Performing Lab: [address] [address] PROTEIN,TOTAL 6.6 g/dL 6.0-8.3 ALBUMIN 3.7 g/dL 3.5-5.0 ALKALINE PHOSPHATASE 96 U/L 40-150 AST 20 U/L 5-34 ALT 28 U/L BILIRUBIN, TOTAL 0.5 mg/dL 0.2-1.2 Aug 08, 2024 10:07 AM [facility] TSH Specimen Type: SERUM No comment entered. Ordering Provider: ALEXANDR YODER Report Released Date/Time: Aug 08, 2024 08:51 AM Reporting Lab: [address] [address] Performing Lab: [address] [address] TSH 1.43 u[IU]/mL 0.35-5.00 Aug 08, 2024 10:07 AM [facility] BASIC METABOLIC PANEL (non-fasting) Specimen Type: SERUM No comment entered. Ordering Provider: ALEXANDR YODER Report Released Date/Time: Aug 08, 2024 08:51 AM Reporting Lab: [address] [address] Performing Lab: [address] [address] UREA NITROGEN 19 mg/dL 7-25 GLUCOSE 102 mg/dL H 65-100 SODIUM 139 mmol/L 135-145 POTASSIUM 4.3 mmol/L 3.5-5.0 CHLORIDE 107 mmol/L 100-110 CO2 23 meq/L 20-30 CREATININE, Serum 1.51 mg/dL H 0.50-1.40 eGFR(CKD-EPI 2020) 50 mL/min L >60 Aug 08, 2024 10:07 AM [facility] CBC AND DIFF (AUTO) Specimen Type: BLOOD No comment entered. Ordering Provider: ALEXANDR YODER Report Released Date/Time: Aug 08, 2024 08:51 AM Reporting [facility] [address] [facility] [address] [facility]: [facility] [address] [facility] [address] WBC 6.37 10*3/uL 4.50-11.00 RBC 4.95 10*6/uL [...] Date/Time Current Smoking Status Comment Artem shukla Jul 04, 2024 11:00 AM VA-TOBACCO FORMER USER [facility] [place] [facility] Tobacco Use History This [...] < 15 YRS [place] [facility] [place] [facility] Apr 07, 2023 01:30 PM VA-TOBACCO FORMER USER [facility] [place] [facility] Apr 07, 2023 01:30 PM VA-TOBACCO QUIT 5 TO < 15 YRS [facility] [place] [facility] May 07, 2022 09:30 AM VA-TOBACCO FORMER USER [facility] [place] [facility] May 07, 2022 09:30 AM VA-TOBACCO QUIT 1 TO < 5 YRS [place] [facility] [place] [facility] May 15, 2021 08:45 AM VA-TOBACCO FORMER USER [place] [facility] [place] [facility] May 15, 2021 08:45 AM VA-TOBACCO QUIT 1 TO < 5 YRS [place] [facility] [place] [facility] Jun 04, 2020 10:30 AM VA-TOBACCO FORMER USER [place] [facility] [place] [facility] Jun 04, 2020 10:30 AM VA-TOBACCO QUIT < 1 YEAR [place] [facility] [place] [facility] May 23, 2019 09:36 AM VA-TOBACCO DOESNT USE WI 30 MIN WAKEUP [place] [facility] [place] [facility] May 23, 2019 09:36 AM VA-TOBACCO USE 30 YEARS OR MORE [place] [facility] [place] [facility] May 23, 2019 09:36 AM VA-TOBACCO USE ADVICE [place] [facility] [place] [facility] May 23, 2019 09:36 AM 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 [facility] [place] [facility] May 23, 2019 09:36 AM VA-TOBACCO USE MED NO [facility] [place] [facility] May 23, 2019 09:36 AM VA-TOBACCO USER EVERY DAY [place] [facility] [place] [facility] Apr 21, 2018 01:18 PM CURRENT SMOKER 1/2 pk a week [place] [facility] Apr 21, 2018 01:18 PM V1-PT DECLINES REF TO TOBACCO CESS PRGM [facility] Apr 21, 2018 01:18 PM V1-PT DECLINES TOB ACCO CESSATION MEDS [facility] Apr 21, 2018 01:18 PM V1-PT THINKING ABO UT QUIT TOBACCO USE [facility] Oct 18, 2017 02:19 PM V1-PT NOT INTEREST ED IN QUIT TOBACCO USE [facility] Oct 04, 2017 01:55 PM CURRENT [...] 13, 2003 ADVANCE DIRECTIVE KAT OVIEDO [facility] Radiology Reports: +/- 30 days [...] the Encounter. The data comes from all [place] treatment facilities. Date/Time Radiology Report Provider Source Aug 08, 2024 11:06 AM KNEE 3 VIEWS (RIGHT): ANDRZEJ WILKERSON [id number] -1955 M Exm Date: AUG 08, 2024@11:06 Req Phys: ALEXANDR YODER Pat Loc: CWM/NO/PACT 5 (Req'g Loc) Img Loc: [facility]BUILD[facility] 1 Service: [place] [address] (Case [id number] COMPLETE) KNEE 3 VIEWS (RIGHT) (RAD Detailed) CPT:50082 Reason for Study: Right knee instability Clinical 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 Report Status: Verified Date Reported: AUG 08, 2024 Date Verified: AUG 08, 2024 Bath Tester E-Sig:/ES/CLEVELAND REEVES JR Report: Study: AP weight-bearing [...] Primary Interpreting Staff: CLEVELAND REEVES JR, Radiologist (Bath Tester) /EAD CLEVELAND REEVES JR [facility] Aug 08, 2024 09:23 AM DUPLEX SCAN: EXTREMITY VEINS, UNILATERAL: ANDRZEJ WILKERSON [id number] -1955 M Exm Date: AUG 08, 2024@09:23 Req Phys: ALEXANDR YODER Pat Loc: CWM/NO/PACT 5 (Req'g Loc) Img Loc: ULTRASOUND Service: [place] [address] (Case [id number] COMPLETE) DUPLEX SCAN: EXTREMITY VEINS, UNI(US Detailed) CPT:57290 Proc Modifiers : RIGHT Reason for Study: Right lateral upper leg pain and right lower leg pain Clinical History: no palpable cord (+) edema h/o DVT Report Status: Verified Date Reported: AUG 08, 2024 Date Verified: AUG 08, 2024 Bath Tester E-Sig:/ES/CLEVELAND REEVES JR Report: Study: Right lower [...] Primary Interpreting Staff: CLEVELAND REEVES JR, Radiologist (Bath Tester) /CLEVELAND HERNANDEZ JR [facility] Jul 25, 2024 12:24 PM ULTRASOUND NECK (THYROID,HEAD,SOFT TISSUE): ANDRZEJ WILKERSON [id number] -1955 M Exm Date: JUL 25, 2024@12:24 Req Phys: PARESHALEXANDR ESTELLA Pat Loc: CWM/NO/PACT 5 (Req'g Loc) Img Loc: ULTRASOUND Service: [place] [address] (Case [id number] COMPLETE) ULTRASOUND NECK (THYROID,HEAD,SOF(US Detailed) CPT:86239 Reason for Study: Right axillary tenderness Clinical History: no nodules palpated but very ttp r/o reactive lymphadenopathy Report Status: Verified Date Reported: JUL 25, 2024 Date Verified: JUL 25, 2024 Bath Tester E-Sig:/ES/CLEVELAND REEVES JR Report: Study: Right axillary [...] Primary Interpreting Staff: CLEVELAND REEVES JR, Radiologist (Bath Tester) /CLEVELAND HERNANDEZ JR [facility] Encounter Notes: All associated encounter notes This section contains the clinical notes associated to the Encounter. Date/Time Encounter Note(s) Provider Source Aug 07, 2024 12:55 PM ADDENDUM: LOCAL TITLE: Addendum STANDARD TITLE: ADDENDUM DATE OF NOTE: AUG 07, 2024@12:55:38 ENTRY DATE: AUG 07, 2024@12:55:39 AUTHOR: CATHIE JOYCEIGNER: URGENCY: STATUS: COMPLETED Can vet be offered appt /herlinda/ Cathie Joyce quality control manager Staff Nurse Signed: 08/07/2024 12:56 Receipt Acknowledged By: 08/07/2024 13:09 /herlinda/ TESHA MCINTYRE Advanced Surface Lay Out Technician --- Original Document --- 08/07/24 CCC: CLINICAL TRIAGE: Patient Demographics Patient Name: ANDRZEJ WILKERSON Patient Primary [address]: [address] [place] [address] Patient Primary Phone: [phone] Patient : 1955 Patient Age: 69 Current Location: home Call Back Number: in chart Caller/Recipient Relation to Patient: Self Caller Name: ANDRZEJ WILKERSON Emergency Contact: ROBERTO MONTES Triage Summary Conducted triage/discussed symptoms Pain Score: 5 (Moderate to Severe Pain) Utilized the Triage Tool: Yes Chief Complaint: leg swelling System WHEN: Within 8 Hours Nurse's Recommendation / WHEN: Within 8 Hours System WHERE: Urgent care center Nurse's Recommendation / WHERE: [facility]gent [facility] Patient Disposition Patient/Caregiver agrees to plan of care: Yes Patient WHERE: ED Other Other - Patient Where Disposition: in chart Patient WHEN: Within 8 hours Patient is Urgent or Emergent Nursing Plan and Disposition Referred patient to higher level of care Instructed to go to Emergency Room (ER) Advised of Financial Disclaimer: Patient advised that recommendation for care provided during the call does not constitute an approval or authorization for payment by the [place] or its staff. Patient advised to report a community ED visit to the [facility] Office of Community Care at within 72 hours. Other course(s) of action Generated msg to PACT/Provider Provided guidance for worsening symptoms: *Caller/Patient* advised to call facilities [facility] Clinical [facility] or seek immediate medical attention for new or worsening symptoms Nurse Summary Nurse Summary: The called complaining of right knee replacement years ago and was assessed 07/31 by PCP for right thigh pain thigh and no swelling notes at that time and Physical Therapy consult ordered and is unable to be scheduled until August. He complains of increased swelling about 1.5 times normal size with burning pain from thigh to ankle and black and blue in his knee without injury which is worse when when lying down x 1 week with worsening chronic shortness of breath and EV=374/84 pulse=84. Advised that I up triaged due to history of DVT to be assessed at the local emergency room and he agreed with plan and will go to [place]. And provided in network urgent care information as well listed below with pharmacy information. [facility] [place] [address] [place] [address] Main number: [phone] [facility] [address] [place] [address] Clinical Contact Center Codes Clinic/Location: V1 CWM PHONE [facility] RN Decision Support System Output: Triage Complete Triage Date: 08/07/2024, 12:35 PM Triage Note: Decision Support Tool Used: [facility] Phone Triage 07 Aug 2024 17:32:34 +[address] [facility] Demographics 69 y/o Male Results CC: Leg Swelling Software suggested: Within 8 Hours Software suggested follow-up location: Urgent care center Values and Measures Duration of CC: 1 Weeks Positive Responses HPI: dyspnea on exertion, worse than usual during normal activities HPI: dyspnea, resting HPI: leg swelling, worsening HPI: paroxysmal nocturnal dyspnea VS: respiratory rate not taken VS: temperature not taken Negative Responses Denies: HPI: orthopnea, need to elevate head of bed Denies: HPI: skin erythema, legs Denies: PMH: CHF IMPORTANT: This note was created by [place] [facility] Clinical Contact Center staff. Please do not alert the staff member by adding them as a signer for future communications. Alerts are not monitored by this user. /es/ Melia Soto SUBSTITUTE TEACHER [facility] CONSULTING SERVICES PROJECT MANAGER Signed: 08/07/2024 12:46 Receipt Acknowledged By: 08/07/2024 12:57 /es/ Becky Dubnar RN, BSN Primary Care Nurse Field Superintendent for DONTA MANNING 08/07/2024 12:56 /herlinda/ Cathie Joyce RN Primary Care Staff Nurse 08/07/2024 ADDENDUM STATUS: COMPLETED MSA called to schedule appt. [place] states he is currently at [facility] ED but will be leaving to go home and see PCP tomorrow at 8:30. He stated he did not want to stay for ED appt. /es/ TESHA MCINTYRE Advanced Surface Lay Out Technician Signed: 08/07/2024 13:09 CATHIE JOYCE [place] [facility] Aug 07, 2024 12:46 PM RN PROGRESS NOTE: LOCAL TITLE: CCC: CLINICAL TRIAGE STANDARD TITLE: RN PROGRESS NOTE DATE OF NOTE: AUG 07, 2024@12:46:25 ENTRY DATE: AUG 07, 2024@12:46:25 AUTHOR: MELIA SOTO COSIGNER: URGENCY: STATUS: COMPLETED CCC: CLINICAL TRIAGE Has ADDENDA Patient Demographics Patient Name: ANDRZEJ WILKERSON Patient Primary Address: [address] [place] [address] Patient Primary Phone: [phone] Patient : 1955 Patient Age: 69 Current Location: home Call Back Number: in chart Caller/Recipient Relation to Patient: Self Caller Name: ANDRZEJ WILKERSON Emergency Contact: ROBERTO MONTES Triage Summary Conducted triage/discussed symptoms Pain Score: 5 (Moderate to Severe Pain) Utilized the Triage Tool: Yes Chief Complaint: leg swelling System WHEN: Within 8 Hours Nurse's Recommendation / WHEN: Within 8 Hours System WHERE: Urgent care center Nurse's Recommendation / WHERE: [facility]gent [facility] Patient Disposition Patient/Caregiver agrees to plan of care: Yes Patient WHERE: ED Other Other - Patient Where Disposition: in chart Patient WHEN: Within 8 hours Patient is Urgent or Emergent Nursing Plan and Disposition Referred patient to higher level of care Instructed to go to Emergency Room (ER) Advised of Financial Disclaimer: Patient advised that recommendation for care provided during the call does not constitute an approval or authorization for payment by the [place] or its staff. Patient advised to report a community ED visit to the [facility] Office of Community Care at within 72 hours. Other course(s) of action Generated msg to PACT/Provider Provided guidance for worsening symptoms: *Caller/Patient* advised to call facilities [place] Clinical Contact Center or seek immediate medical attention for new or worsening symptoms Nurse Summary Nurse Summary: The called complaining of right knee replacement years ago and was assessed 07/31 by PCP for right thigh pain thigh and no swelling notes at that time and Physical Therapy consult ordered and is unable to be scheduled until August. He complains of increased swelling about 1.5 times normal size with burning pain from thigh to ankle and black and blue in his knee without injury which is worse when when lying down x 1 week with worsening chronic shortness of breath and AM=168/84 pulse=84. Advised that I up triaged due to history of DVT to be assessed at the local emergency room and he agreed with plan and will go to [place]. And provided in network urgent care information as well listed below with pharmacy information. [facility] [place] [address] [place] [address] Main number: [phone] [facility] [address] [place] [address] Clinical Contact Center Codes Clinic/Location: V1 CWM PHONE CCC RN Decision Support System Output: Triage Complete Triage Date: 08/07/2024, 12:35 PM Triage Note: Decision Support Tool Used: [facility] Phone Triage 07 Aug 2024 17:32:[address] +[address] [facility] Demographics 69 y/o Male Results CC: Leg Swelling Software suggested: Within 8 Hours Software suggested follow-up location: Urgent care center Values and Measures Duration of CC: 1 Weeks Positive Responses HPI: dyspnea on exertion, worse than usual during normal activities HPI: dyspnea, resting HPI: leg swelling, worsening HPI: paroxysmal nocturnal dyspnea VS: respiratory rate not taken VS: temperature not taken Negative Responses Denies: HPI: orthopnea, need to elevate head of bed Denies: HPI: skin erythema, legs Denies: PMH: CHF IMPORTANT: This note was created by [facility] Clinical Contact Center staff. Please do not alert the staff member by adding them as a signer for future communications. Alerts are not monitored by this user. /herlinda/ Melia Soto SUBSTITUTE TEACHER [facility] CONSULTING SERVICES PROJECT MANAGER Signed: 08/07/2024 12:46 Receipt Acknowledged By: 08/07/2024 12:57 /es/ Becky Dunbar RN, BSN Primary Care Nurse Field Superintendent for DONTA MANNING 08/07/2024 12:56 /herlinda/ Cathie Joyce RN Primary Care Staff Nurse 08/07/2024 ADDENDUM STATUS: COMPLETED Can vet be offered appt /stefania Jocye RN Primary Care Staff Nurse Signed: 08/07/2024 12:56 Receipt Acknowledged By: 08/07/2024 13:09 /herlinda/ TESHA MCINTYRE Advanced Surface Lay Out Technician 08/07/2024 ADDENDUM STATUS: COMPLETED MSA called to schedule appt. [place] states he is currently at [facility] ED but will be leaving to go home and see PCP tomorrow at 8:30. He stated he did not want to stay for ED appt. /herlinda/ TESHA MCINTYRE Advanced Surface Lay Out Technician Signed: 08/07/2024 13:09 MELIA SOTO [place] [facility]
--- OUTSIDE RECORDS SUMMARY | 2024-08-18 13:13 | XMS_ITS ---
Author Name [facility] [place] [facility] [place] [facility] [place] Address [address] [place] [address] Care Team Providers Care Supervisor [employer] Name Role Phone ALEXANDR YODER Primary Care [...] Name Patient's Relationship to Policy [place] [employer] (WNR) MEDICARE ADVANTAGE HUMAN A INSUR ANCE [facility] Mar 23, 2023 [id number] [phone] Ezekiel WILKERSON PATIENT Selected Encounter This section includes the information on record at [place] for the Encounter. Date/Time Encounter Type Encounter Description Reason Pro vider Source Jul 27, 2024 12:13 PM Outpatient Encounter PRIMARY CARE/MEDICINE IHE Encounter Template Text not used by [place] [...] Appointment Type Appointme nt Facility Name Jul 31, 2024 01:00 PM [facility]BUL[facility] [place] [facility] Jul 31, 2024 02:00 PM [facility] [place] [facility] Aug 08, 2024 08:30 AM [facility] [place] [facility] Aug 08, 2024 09:30 AM AMBULATORY - NONE [facility] [place] [facility] Aug 21, 2024 02:30 PM AMBULATORY - [facility] MEDIC[facility] [place] [facility] Aug 22, 2024 10:00 AM AM[facility]UL[facility]ORY [facility]INE [facility] [place] [facility] Aug 29, 2024 11:00 AM AMBULATORY - PSYCHIATRY [facility] [place] [facility] Aug 29, 2024 11:30 AM AMBULATORY - PSYCHIATRY [facility] [place] [facility] Sep 14, 2024 11:00 AM AMBULATORY - [facility] MEDICIN [facility] [place] [facility] Oct 23, 2024 02:30 PM [place] [facility] [place] [facility] Nov 01, 2024 01:30 PM [facility] [place] [facility] Nov 28, 2024 03:00 PM [place]ORY [place]ICINE [place] [facility] [place] [facility] Active, Pending, and Scheduled Orders This [...] PM Consult Order SURGERY/CW M OUTPT [facility] Restaurant Operations[facility] [place] [facility] Jul 31, 2024 02:19 PM Consult Order PHYSICAL T HERAPY/NHM OUTPT Cons Director Of Restaurant Operations's Choice [place] [facility] [place] [facility] Lab Results: +/- 30 days of [...] Range Comment Aug 08, 2024 10:07 AM [facility] BNP (Natriuretic Peptide Brain) Specimen Type: PLASMA No comment entered. Ordering Provider: ALEXANDR YODER Report Released Date/Time: Aug 08, 2024 08:51 AM Reporting Lab: [address] [address] Performing Lab: [address] [address] BNP (Natriuretic Peptide Brain) 20 pg/mL 10-100 Aug 08, 2024 10:07 AM [facility] HEMOGLOBIN A1C PANEL Specimen Type: BLOOD [...] Aug 08, 2024 08:51 AM Reporting Lab: [address] [address] Performing Lab: [address] [address] HEMOGLOBIN A1C 6.0 H 4.0-5.6 Aug 08, 2024 10:07 AM [facility] LIPID PANEL FASTING Specimen Type: SERUM No comment entered. Ordering Provider: ALEXANDR YODER Report Released Date/Time: Aug 08, 2024 08:51 AM Reporting Lab: [address] [address] Performing Lab: [address] [address] CHOLESTEROL 122 mg/dL TRIGLYCERIDE 117 mg/dL 0-150 LDL calculated 70 mg/dL 0-129 CHOL/HDL 4.2 HDL CHOLESTEROL 29 mg/dL L 40-60 Aug 08, 2024 10:07 AM [facility] LIVER FUNCTION Specimen Type: SERUM No comment entered. Ordering Provider: ALEXANDR YODER Report Released Date/Time: Aug 08, 2024 08:51 AM Reporting Lab: [facility] [address] [facility] [address] Performing Lab: [facility] [address] [facility] [address] PROTEIN,TOTAL 6.6 g/dL 6.0-8.3 ALBUMIN 3.7 g/dL 3.5-5.0 ALKALINE PHOSPHATASE 96 U/L 40-150 AST 20 U/L 5-34 ALT 28 U/L BILIRUBIN, TOTAL 0.5 mg/dL 0.2-1.2 Aug 08, 2024 10:07 AM [facility] TSH Specimen Type: SERUM No comment entered. Ordering Provider: ALEXANDR YODER Report Released Date/Time: Aug 08, 2024 08:51 AM Reporting Lab: [facility] [address] [facility] [address] Performing Lab: [facility] [address] [address] TSH 1.43 u[IU]/mL 0.35-5.00 Aug 08, 2024 10:07 AM [facility] BASIC METABOLIC PANEL (non-fasting) Specimen Type: SERUM No comment entered. Ordering Provider: ALEXANDR YODER Report Released Date/Time: Aug 08, 2024 08:51 AM Reporting Lab: [facility] [address] [facility] [address] Performing Lab: [address] [address] UREA NITROGEN 19 mg/dL 7-25 GLUCOSE 102 mg/dL H 65-100 SODIUM 139 mmol/L 135-145 POTASSIUM 4.3 mmol/L 3.5-5.0 CHLORIDE 107 mmol/L 100-110 CO2 23 meq/L 20-30 CREATININE, Serum 1.51 mg/dL H 0.50-1.40 eGFR(CKD-EPI 2021) 50 mL/min L >60 Aug 08, 2024 10:07 AM [facility] CBC AND DIFF (AUTO) Specimen Type: BLOOD No comment entered. Ordering Provider: ALEXANDR YODER Report Released Date/Time: Aug 08, 2024 08:51 AM Reporting Lab: [facility] [address] [facility] [address] Performing Lab: [facility] [address] [facility] [address] WBC 6.37 10*3/uL 4.50-11.00 RBC 4.95 10*6/uL [...] took place. Date/Time Current Smoking Status Comment [facility] Jul 04, 2024 11:00 AM VA-TOBACCO FORMER USER [place] [facility] [place] [facility] Tobacco Use History This section includes a history of the smoking, or tobacco-related health factors, that were collected on or before the date of the Encounter. The data comes from the [place] facility where the Encounter took place. Date/Time Smoking Status/Tobac co Use Comment Facility Jul 04, 2024 11:00 AM VA-TOBACCO QUIT 5 TO < 15 YRS [facility] [place] [facility] Apr 07, 2023 01:30 PM VA-TOBACCO FORMER USER [facility] [place] [facility] Apr 07, 2023 01:30 PM VA-TOBACCO QUIT 5 TO < 15 YRS [facility] [place] [facility] May 07, 2022 09:30 AM VA-TOBACCO FORMER USER [place] [facility] [place] [facility] May 07, 2022 09:30 AM VA-TOBACCO QUIT 1 TO < 5 YRS [facility] [place] [facility] May 15, 2021 08:45 AM VA-TOBACCO FORMER USER [facility] [place] [facility] May 15, 2021 08:45 AM VA-TOBACCO QUIT 1 TO < 5 YRS [facility] [place] [facility] Jun 04, 2020 10:30 AM VA-TOBACCO FORMER USER [facility] [place] [facility] Jun 04, 2020 10:30 AM VA-TOBACCO QUIT < 1 YEAR [place] [facility] [place] [facility] May 23, 2019 09:36 AM VA-TOBACCO DOESNT USE WI 30 MIN WAKEUP [place] [facility] [place] [facility] May 23, 2019 09:36 AM VA-TOBACCO USE 30 YEARS OR MORE [facility] [place] [facility] May 23, 2019 09:36 AM VA-TOBACCO USE ADVICE [facility] [place] [facility] May 23, 2019 09:36 AM VA-TOBACCO USE DISBURSEMENT CLERK NO [facility] [place] [facility] May 23, 2019 09:36 AM VA-TOBACCO USE MED NO [facility] [place] [facility] May 23, 2019 09:36 AM VA-TOBACCO USER EVERY DAY [facility] Apr 21, 2018 01:18 PM CURRENT SMOKER 1/2 pk a week [facility] Apr 21, 2018 01:18 PM V1-PT DECLINES REF TO TOBACCO CESS PRGM [facility] Apr 21, 2018 01:18 PM V1-PT DECLINES TOB ACCO CESSATION MEDS [facility] Apr 21, 2018 01:18 PM V1-PT THINKING ABO UT QUIT TOBACCO USE [facility] Oct 18, 2017 02:19 PM V1-PT NOT INTEREST ED IN QUIT TOBACCO USE [facility] Oct 04, 2017 01:55 PM CURRENT SMOKER .5 packs a day [facility] Advance Directives: All historical and current [...] AM KNEE 3 VIEWS (RIGHT): ANDRZEJ WILKERSON [id number] -1955 M Exm Date: AUG 08, 2024@11:06 Req Phys: ALEXANDR YODER Pat Loc: CWM/NO/PACT 5 (Req'g Loc) Img Loc: [facility]BUILDING 1 Service: [place] [address] (Case [id number] COMPLETE) KNEE 3 VIEWS (RIGHT) (RAD Detailed) CPT:50711 Reason for Study: Right knee instability Clinical 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 Report Status: Verified Date Reported: AUG 08, 2024 Date Verified: AUG 08, 2024 Shirt Creaser E-Sig:/ES/CLEVELAND REEVES JR Report: Study: AP weight-bearing [...] Primary Interpreting Staff: CLEVELAND REEVES JR, Radiologist (Shirt Creaser) /CLEVELAND HERNANDEZ JR [facility] Aug 08, 2024 09:23 AM DUPLEX SCAN: EXTREMITY VEINS, UNILATERAL: ANDRZEJ WILKERSON [id number] -1955 M Exm Date: AUG 08, 2024@09:23 Req Phys: ALEXANDR YODER Pat Loc: CWM/NO/PACT 5 (Req'g Loc) Img Loc: ULTRASOUND Service: [place] [address] (Case [id number] COMPLETE) DUPLEX SCAN: EXTREMITY VEINS, UNI(US Detailed) CPT:29175 Proc Modifiers : RIGHT Reason for Study: Right lateral upper leg pain and right lower leg pain Clinical History: no palpable cord (+) edema h/o DVT Report Status: Verified Date Reported: AUG 08, 2024 Date Verified: AUG 08, 2024 Shirt Creaser E-Sig:/ES/CLEVELAND REEVES JR Report: Study: Right lower [...] Primary Interpreting Staff: CLEVELAND REEVES JR, Radiologist (Shirt Creaser) /CLEVELAND HERNANDEZ JR [facility] Jul 25, 2024 12:24 PM ULTRASOUND NECK (THYROID,HEAD,SOFT TISSUE): ANDRZEJ WILKERSON [id number] -1955 M Exm Date: JUL 25, 2024@12:24 Req Phys: ALEXANDR YODER Loc: CWM/NO/PACT 5 (Req'g Loc) Img Loc: ULTRASOUND Service: [place] [address] (Case [id number] COMPLETE) ULTRASOUND NECK (THYROID,HEAD,SOF(US Detailed) CPT:51465 Reason for Study: Right axillary tenderness Clinical History: no nodules palpated but very ttp r/o reactive lymphadenopathy Report Status: Verified Date Reported: JUL 25, 2024 Date Verified: JUL 25, 2024 Isaura E-Sig:/ES/CLEVELAND REEVES JR Report: Study: Right axillary [...] Primary Interpreting Staff: CLEVELAND REEVES JR, Radiologist (Shirt Creaser) /CLEVELAND HERNANDEZ JR [facility] Encounter Notes: All associated encounter notes This section contains the clinical notes associated to the Encounter. Date/Time Encounter Note(s) Provider Source Jul 27, 2024 12:19 PM PRIMARY CARE TELEPHONE ENCOUNTER NOTE: LOCAL TITLE: TELEPHONE NOTE/PRIMARY CARE STANDARD TITLE: PRIMARY CARE TELEPHONE ENCOUNTER NOTE DATE OF NOTE: JUL 27, 2024@12:19 ENTRY DATE: JUL 27, 2024@12:19:41 AUTHOR: ALEXANDR YODER EXP COSIGNER: URGENCY: STATUS: COMPLETED called to let him know about his axillar painful nodule US is showing 3 mm small cyst in the right axillary region of pain without solid mass or lymphadenopathy identified I will refer him to Dr Turpin our general surgeon for consideration of removal he appreciated call /herlinda/ JR JOSEPH Nurse Practitioner Signed: 07/27/2024 12:20 ALEXANDR YODER [place] [facility]
--- OUTSIDE RECORDS SUMMARY | 2024-08-18 13:13 | XMS_ITS ---
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 Date/Time Encounter Type Encounter Description Reason Provider Source Jul 31, 2024 01:00 PM CARLOS ALBERTO MDLTY 1+ULTRASOUND EA 15 OCCUPATIONAL THERAPY ICD-10-CM M79.601 Pain in right arm ISABEL LEMOS IHE Encounter Template Text not used by [place] Assessments - Encounter Diagnoses This section includes the primary and secondary diagnoses documented for the Encounter. Date/Time Primary/Secondary Diagnosis Diagnosis Name Provider Source Jul 31, 2024 03:58 PM PRIMARY Pain in right arm ISABEL LEMOS [facility] [place] [facility] Plan of Treatment: Future Appointments (+ 6 months) and Future Tests (+/- 45 days) The Plan of Treatment section includes future care activities for the patient [facility] [place] [facility] This section includes future appointments and future orders which are active, pending or scheduled. Future Appointments This section includes appointments that were scheduled to occur 6 months from the date of the Encounter, up to a maximum of 20 appointments. The data comes from all [facility]. Appointment Date/Time Appointment Type Appointme nt Facility Name Aug 08, 2024 08:30 AM AMBULATORY - MEDICINE [facility] [place] [facility] Aug 08, 2024 09:30 AM AMBULATORY - NONE [facility] [place] [facility] Aug 21, 2024 02:30 PM AMBULATORY - REHAB MEDICIN E [facility] [place] [facility] Aug 22, 2024 10:00 AM AMBULATORY - MEDICINE [facility] [place] [facility] Aug 29, 2024 11:00 AM AMBULATORY - PSYCHIATRY [facility] [place] [facility] Aug 29, 2024 11:30 AM AMBULATORY - PSYCHIATRY [facility] [place] [facility] Sep 14, 2024 11:00 AM AMBULATORY - REHAB MEDICIN E [facility] [place] [facility] Oct 23, 2024 02:30 PM AMBULATORY - MEDICINE [facility] [place] [facility] Nov 01, 2024 01:30 PM AMBULATORY - MEDICINE [facility] [place] [facility] Nov 28, 2024 03:00 PM AMBULATORY - MEDICINE [facility] [place] [facility] Active, Pending, and Scheduled Orders This section includes a listing of several types of active, pending, and scheduled orders, including clinic medications orders, diagnostic test orders, procedure orders and consult orders; where the start date of the order is 45 days before the date of the Encounter or 45 days after the date of theEncounter. The data comes from all [facility]. Test Date/Time Test Type Test Details Facility Name Jul 27, 2024 12:18 PM Consult Order SURGERY/CW M OUTPT Cons [facility] [place] Jul 31, 2024 02:19 PM Consult Order PHYSICAL T HERAPY/NHM OUTPT Cons Product Development Director's Choice [facility] Lab Results: +/- 30 days of the encounter This section includes the Chemistry and Hematology Lab Results on record with [place] for the patient. Radiology Reports and Pathology Reports are provided separately, in subsequent sections. Lab Results This section contains the Chemistry/Hematology Results that were resulted 30 days before or 30 daysafter the date of the Encounter. Date/Time Source Result Type Result - Unit Interpretation Reference Range Comment Aug 08, 2024 10:07 AM [facility] BNP (Natriuretic Peptide Brain) Specimen Type: PLASMA No comment entered. Ordering Provider: ALEXANDR YODER Report Released Date/Time: Aug 08, 2024 08:51 AM Reporting [facility]: [facility] [address] Performing [facility]: [facility] [address] BNP (Natriuretic Peptide Brain) 20 pg/mL 10-100 Aug 08, 2024 10:07 AM [facility] HEMOGLOBIN A1C PANEL Specimen Type: BLOOD [...] Aug 08, 2024 08:51 AM Reporting Lab: [address] [address] Performing [facility]: [facility] [address] HEMOGLOBIN A1C 6.0 H 4.0-5.6 Aug 08, 2024 10:07 AM [facility] LIPID PANEL FASTING Specimen Type: SERUM No comment entered. Ordering Provider: ALEXANDR YODER Report Released Date/Time: Aug 08, 2024 08:51 AM Reporting Lab: [address] [address] Performing [facility]: [facility] [address] CHOLESTEROL 122 mg/dL TRIGLYCERIDE 117 mg/dL 0-150 LDL calculated 70 mg/dL 0-129 CHOL/HDL 4.2 HDL CHOLESTEROL 29 mg/dL L 40-60 Aug 08, 2024 10:07 AM [facility] TSH Specimen Type: SERUM No comment entered. Ordering Provider: ALEXANDR YODER Report Released Date/Time: Aug 08, 2024 08:51 AM Reporting Lab: [facility] [address] [facility] [address] Performing Lab: [address] [address] TSH 1.43 u[IU]/mL 0.35-5.00 Aug 08, 2024 10:07 AM [facility] LIVER FUNCTION Specimen Type: SERUM No comment entered. Ordering Provider: ALEXANDR YODER Report Released Date/Time: Aug 08, 2024 08:51 AM Reporting Lab: [address] [address] Performing Lab: [address] [address] PROTEIN,TOTAL 6.6 g/dL 6.0-8.3 ALBUMIN 3.7 g/dL 3.5-5.0 ALKALINE PHOSPHATASE 96 U/L 40-150 AST 20 U/L 5-34 ALT 28 U/L BILIRUBIN, TOTAL 0.5 mg/dL 0.2-1.2 Aug 08, 2024 10:07 AM [facility] BASIC METABOLIC PANEL (non-fasting) Specimen Type: SERUM No comment entered. Ordering Provider: ALEXANDR YODER Report Released Date/Time: Aug 08, 2024 08:51 AM Reporting Lab: [address] [address] Performing Lab: [address] [address] UREA NITROGEN 19 mg/dL 7-25 GLUCOSE 102 mg/dL H 65-100 SODIUM 139 mmol/L 135-145 POTASSIUM 4.3 mmol/L 3.5-5.0 CHLORIDE 107 mmol/L 100-110 CO2 23 meq/L 20-30 CREATININE, Serum 1.51 mg/dL H 0.50-1.40 eGFR(CKD-EPI 2020) 50 mL/min L >60 Aug 08, 2024 10:07 AM [facility] CBC AND DIFF (AUTO) Specimen Type: BLOOD No comment entered. Ordering Provider: ALEXANDR YODER Report Released Date/Time: Aug 08, 2024 08:51 AM Reporting Lab: [facility] [address] [facility] [address] Performing Lab: [facility] [address] [facility] [address] WBC 6.37 10*3/uL 4.50-11.00 RBC 4.95 10*6/uL [...] PM 98.3 82 134/91 16 93 2 [facility] Social History: Smoking Status (Most current) and Tobacco Use (All prior to encounter date) This section includes the most current, and the historical, smoking and tobacco- related health factors from the [place] facility where the Encounter took place. Current Smoking Status This section includes the most current smoking, or tobacco-related health factor, from the [place] facility where the Encounter took place. Date/Time Current Smoking Status Comment [facility] it Jul 04, 2024 11:00 AM VA-TOBACCO FOR[facility] Tobacco Use History This section includes a history of the smoking, or tobacco-related health factors, that were collected on or before the date of the Encounter. The data comes from the [place] facility where the Encounter took place. Date/Time Smoking Status/Tobac co Use Comment Facility Jul 04, 2024 11:00 AM VA-TOBACCO QUIT 5 TO < 15 YRS [facility] [place] [facility] Apr 07, 2023 01:30 PM VA-TOBACCO FORMER USER [facility] [place] [facility] Apr 07, 2023 01:30 PM VA-TOBACCO QUIT 5 TO < 15 YRS [facility] [place] [facility] May 07, 2022 09:30 AM VA-TOBACCO FORMER USER [facility] [place] [facility] May 07, 2022 09:30 AM VA-TOBACCO QUIT 1 TO < 5 YRS [facility] [place] [facility] May 15, 2021 08:45 AM VA-TOBACCO FORMER USER [facility] [place] [facility] May 15, 2021 08:45 AM VA-TOBACCO QUIT 1 TO < 5 YRS [facility] [place] [facility] Jun 04, 2020 10:30 AM VA-TOBACCO FORMER USER [facility] [place] [facility] Jun 04, 2020 10:30 AM VA-TOBACCO QUIT < 1 YEAR [facility] [place] [facility] May 23, 2019 09:36 AM VA-TOBACCO DOESNT USE WI 30 MIN WAKEUP [facility] May 23, 2019 09:36 AM VA-TOBACCO USE 30 YEARS OR MORE [facility] May 23, 2019 09:36 AM VA-TOBACCO USE ADVICE [facility] May 23, 2019 09:36 AM VA-TOBACCO USE AUTOMOTIVE WARRANTY ADMINISTRATOR NO [facility] May 23, 2019 09:36 AM VA-TOBACCO USE MED NO [facility] May 23, 2019 09:36 AM VA-TOBACCO USER EVERY DAY [facility] Apr 21, 2018 01:18 PM CURRENT SMOKER 1/2 pk a week [facility] Apr 21, 2018 01:18 PM V1-PT DECLINES REF TO TOBACCO CESS PRGM [facility] Apr 21, 2018 01:18 PM V1-PT DECLINES TOB ACCO CESSATION MEDS [facility] Apr 21, 2018 01:18 PM V1-PT THINKING ABO UT QUIT TOBACCO USE [facility] Oct 18, 2017 02:19 PM V1-PT NOT INTEREST ED IN QUIT TOBACCO USE [facility] Oct 04, 2017 01:55 PM CURRENT SMOKER .5 packs a day [facility] Advance Directives: All historical and current [...] Feb 13, 2003 ADVANCE DIRECTIVE [facility] DAMIAN HUGHES Radiology Reports: +/- 30 [...] the Encounter. The data comes from all [place] treatment facilities. Date/Time Radiology Report Provider Source Aug 08, 2024 11:06 AM KNEE 3 VIEWS (RIGHT): ANDRZEJ WILKERSON [id number] -1955 M Exm Date: AUG 08, 2024@11:06 Req Phys: NATHAN,ALEXANDR ESTELLA Pat Loc: CWM/NO/PACT 5 (Req'g Loc) Img Loc: [facility]/BUILDING 1 Service: [place] [address] (Case [id number] COMPLETE) KNEE 3 VIEWS (RIGHT) (RAD Detailed) CPT:83148 Reason for Study: Right knee instability Clinical 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 Report Status: Verified Date Reported: AUG 08, 2024 Date Verified: AUG 08, 2024 Lobby Attendant E-Sig:/ES/CLEVELAND REEVES JR Report: Study: AP weight-bearing [...] Primary Interpreting Staff: CLEVELAND REEVES JR, Radiologist (Lobby Attendant) /CLEVELAND HERNANDEZ JR [facility] Aug 08, 2024 09:23 AM DUPLEX SCAN: EXTREMITY VEINS, UNILATERAL: ANDRZEJ WILKERSON [id number] -1955 M Exm Date: AUG 08, 2024@09:23 Req Phys: NATHAN,ALEXANDR ESTELLA Pat Loc: CWM/NO/PACT 5 (Req'g Loc) Img Loc: ULTRASOUND Service: [place] [address] (Case [id number] COMPLETE) DUPLEX SCAN: EXTREMITY VEINS, UNI(US Detailed) CPT:45231 Proc Modifiers : RIGHT Reason for Study: Right lateral upper leg pain and right lower leg pain Clinical History: no palpable cord (+) edema h/o DVT Report Status: Verified Date Reported: AUG 08, 2024 Date Verified: AUG 08, 2024 Lobby Attendant E-Sig:/ES/CLEVELAND REEVES JR Report: Study: Right lower [...] Primary Interpreting Staff: CLEVELAND REEVES JR, Radiologist (Lobby Attendant) /CLEVELAND HERNANDEZ JR [facility] Jul 25, 2024 12:24 PM ULTRASOUND NECK (THYROID,HEAD,SOFT TISSUE): ANDRZEJ WILKERSON [id number] -1955 M Ex Date: JUL 25, 2024@12:24 Req Phys: ALEXANDR YODER Pat Loc: CWM/NO/PACT 5 (Req'g Loc) Img Loc: ULTRASOUND Service: [place] [address] (Case [id number] COMPLETE) ULTRASOUND NECK (THYROID,HEAD,SOF(US Detailed) CPT:06895 Reason for Study: Right axillary tenderness Clinical History: no nodules palpated but very ttp r/o reactive lymphadenopathy Report Status: Verified Date Reported: JUL 25, 2024 Date Verified: JUL 25, 2024 Lobby Attendant E-Sig:/ES/CLEVELAND REEVES JR Report: Study: Right axillary [...] Primary Interpreting Staff: CLEVELAND REEVES JR, Radiologist (Lobby Attendant) /CLEVELAND HERNANDEZ JR [facility] [place] [facility] Encounter Notes: All associated encounter notes This section contains the clinical notes associated to the Encounter. Date/Time Encounter Note(s) Provider Source Jul 31, 2024 12:48 PM OCCUPATIONAL THERAPY NOTE: LOCAL TITLE: OCCUPATIONAL THERAPY STANDARD TITLE: OCCUPATIONAL THERAPY NOTE DATE OF NOTE: JUL 31, 2024@12:48 ENTRY DATE: JUL 31, 2024@12:48:57 AUTHOR: ISABEL LEMOS COSIGNER: URGENCY: STATUS: COMPLETED Initial Evaluation date: Jun Progress Note Date: Treatment #: 2 Treatment time: 30 minutes Diagnosis: Pain in right Arm(ICD-10-CM M79.601) Provider: Nathan ALVAREZ Treatment Precautions: Patient identified by full name and date of SUBJECTIVE: Pt reports that the splinting isn't helping. His hand throbs w/ the splint on. His hand felt good following the last tx. Pain Level: 1/ OBJECTIVE: THERAPEUTIC EXERCISE: MINUTES: MANUAL THERAPY: *mobilization to 1st dorsal interosseous/thenar musculature MINUTES: 15 THERAPEUTIC DYNAMIC ACTIVITIES: MINUTES: NEUROMUSCULAR EDUCATION: MINUTES: OTHER: MINUTES: MODALITIES: *MHP to R hand prior to tx *US 1.4 w/cm2 100% 3MHz over 1st dorsal interosseous/thenar musculature MINUTES: 10 [] Contraindication screen completed prior to modality [] Skin intact pre/post SELF CARE/EDUCATION: MINUTES: Patient education was provided for all aspects of care during this clinical encounter. ASSESSMENT: pt tolerated tx well this date. he reported short lived relief following the last session. performed US and mobilization today. extreme tightness noted especially throughout 1st dorsal interosseous. improved following tx. PLAN: pt to return in 2 weeks for subsequent tx. he will discharge splint use for now. /herlinda/ Isabel Lemos, MS OTR/L, CHT Occupational Therapist Signed: 07/31/2024 15:58 ISABEL LEMOSL [facility]
--- OUTSIDE RECORDS SUMMARY | 2024-08-18 13:13 | XMS_ITS | Encounter Summary ---
Author Name [facility] [place] Organization [facility] [place] Address [address] [place] [address] Care Team Providers Care Telehealth Nurse Name Role Phone ALEXANDR YODER Primary Care [...] (WNR) MEDICARE ADVANTAGE HUMAN A INSUR ANCE [facility] Mar 23, 2023 [id number] [phone] Ezekiel WILKERSON PATIENT Selected Encounter This section includes the information on record at [place] for the Encounter. Date/Time Encounter Type Encounter Description Reason Provider Source Jul 25, 2024 01:00 PM PSYTX W PT 30 [facility] - IND ICD-10-CM F32.A Depression, unspecified BRIA LOPEZ Chucky Encounter Template Text not used by [place] Assessments - Encounter Diagnoses This section includes the primary and secondary diagnoses documented for the Encounter. Date/Time Primary/Secondary Diagnosis Diagnosis Name Provider Source Jul 25, 2024 01:13 PM PRIMARY Depression, unspecified BRIA LOPEZ [facility] Plan of Treatment: Future Appointments (+ [...] 20 appointments. The data comes from all [facility]. Appointment Date/Time Appointment Type Appointme nt Facility Name Jul 31, 2024 01:00 PM AMBULATORY - [facility]IC[facility] Jul 31, 2024 02:00 PM AM[place]ULATORY [place]IC[place] [facility] [place] [facility] Aug 08, 2024 08:30 AM [place] [facility] [place] [facility] Aug 08, 2024 09:30 AM AMBULATORY - NONE [facility] [place] [facility] Aug 21, 2024 02:30 PM AMBULATORY - REHAB MEDICIN E [facility] [place] Aug 22, 2024 10:00 AM AMBULATORY [place]ICINE [facility] [place] [facility] Aug 29, 2024 11:00 AM AMBULATORY - PSYCHIATRY [facility] [place] [facility] Aug 29, 2024 11:30 AM AMBULATORY - PSYCHIATRY [facility] [place] [facility] Sep 14, 2024 11:00 AM AMBULATORY - REHAB MEDICIN E [facility] [place] [facility] Oct 23, 2024 02:30 PM AM[facility]ULATORY [place]ICINE [facility] [place] [facility] Nov 01, 2024 01:30 PM AM[facility]ULATORY [place]ICINE [facility] [place] [facility] Nov 28, 2024 03:00 PM AM[place]ULATORY [place]ICINE [place] [facility] [place] [facility] [...] of theEncounter. The data comes from all [facility]. Test Date/Time Test Type Test Details Facility Name Jul 27, 2024 12:18 PM Consult Order SURGERY/CW M OUTPT Cons It Security Architect's Choice [facility] [place] [facility] Jul 31, 2024 02:19 PM Consult Order PHYSICAL T HERAPY/NHM OUTPT Cons It Security Architect's Choice [facility] Lab Results: +/- 30 days of [...] Range Comment Aug 08, 2024 10:07 AM [facility] BNP (Natriuretic Peptide Brain) Specimen Type: PLASMA No comment entered. Ordering Provider: ALEXANDR YODER Report Released Date/Time: Aug 08, 2024 08:51 AM Reporting Lab: [address] [address] Performing Lab: [address] [address] BNP (Natriuretic Peptide Brain) 20 pg/mL 10-100 Aug 08, 2024 10:07 AM [facility] HEMOGLOBIN A1C PANEL Specimen Type: BLOOD [...] Aug 08, 2024 08:51 AM Reporting Lab: [address] [address] Performing Lab: [address] [address] HEMOGLOBIN A1C 6.0 H 4.0-5.6 Aug 08, 2024 10:07 AM [facility] LIPID PANEL FASTING Specimen Type: SERUM No comment entered. Ordering Provider: ALEXANDR YODER Report Released Date/Time: Aug 08, 2024 08:51 AM Reporting Lab: [address] [place] [address] Performing Lab: [facility] [address] [facility] [address] CHOLESTEROL 122 mg/dL TRIGLYCERIDE 117 mg/dL 0-150 LDL calculated 70 mg/dL 0-129 CHOL/HDL 4.2 HDL CHOLESTEROL 29 mg/dL L 40-60 Aug 08, 2024 10:07 AM [facility] BASIC METABOLIC PANEL (non-fasting) Specimen Type: SERUM No comment entered. Ordering Provider: ALEXANDR YODER Report Released Date/Time: Aug 08, 2024 08:51 AM Reporting Lab: [facility] [address] [facility] [address] Performing Lab: [facility] [address] [facility] [address] UREA NITROGEN 19 mg/dL 7-25 GLUCOSE 102 mg/dL H 65-100 SODIUM 139 mmol/L 135-145 POTASSIUM 4.3 mmol/L 3.5-5.0 CHLORIDE 107 mmol/L 100-110 CO2 23 meq/L 20-30 CREATININE, Serum 1.51 mg/dL H 0.50-1.40 eGFR(CKD-EPI 2020) 50 mL/min L >60 Aug 08, 2024 10:07 AM [facility] LIVER FUNCTION Specimen Type: SERUM No comment entered. Ordering Provider: ALEXANDR YODER Report Released Date/Time: Aug 08, 2024 08:51 AM Reporting Lab: [facility] [address] [facility] [address] Performing Lab: [address] [address] PROTEIN,TOTAL 6.6 g/dL 6.0-8.3 ALBUMIN 3.7 g/dL 3.5-5.0 ALKALINE PHOSPHATASE 96 U/L 40-150 AST 20 U/L 5-34 ALT 28 U/L BILIRUBIN, TOTAL 0.5 mg/dL 0.2-1.2 Aug 08, 2024 10:07 AM [facility] TSH Specimen Type: SERUM No comment entered. Ordering Provider: ALEXANDR YODER Report Released Date/Time: Aug 08, 2024 08:51 AM Reporting Lab: [facility] [address] [facility] [address] Performing Lab: [facility] [address] [facility] [address] TSH 1.43 u[IU]/mL 0.35-5.00 Aug 08, 2024 10:07 AM [facility] CBC AND DIFF (AUTO) Specimen Type: BLOOD No comment entered. Ordering Provider: ALEXANDR YODER Report Released Date/Time: Aug 08, 2024 08:51 AM Reporting Lab: [facility] [address] [facility] [address] Performing Lab: [facility] [address] [address] WBC 6.37 10*3/uL 4.50-11.00 RBC 4.95 10*6/uL [...] Date/Time Current Smoking Status Comment Facil it Jul 04, 2024 11:00 AM VA-TOBACCO FORMER USER [facility] [place] [facility] Tobacco [...] [facility] [place] [facility] Apr 07, 2023 01:30 PM VA-TOBACCO FORMER USER [facility] [place] [facility] Apr 07, 2023 01:30 PM VA-TOBACCO [...] VA-TOBACCO DOESNT USE WI 30 MIN WAKEUP [facility] [place] [facility] May 23, 2019 09:36 AM VA-TOBACCO USE 30 YEARS OR MORE [facility] May 23, 2019 09:36 AM VA-TOBACCO USE ADVICE [facility] May 23, 2019 09:36 AM VA-TOBACCO USE TOBACCO STEMMER MACHINE NO [facility] May 23, 2019 09:36 AM VA-TOBACCO USE MED NO [facility] May 23, 2019 09:36 AM VA-TOBACCO USER EVERY DAY [facility] Apr 21, 2018 01:18 PM CURRENT SMOKER 1/2 pk a week [facility] Apr 21, 2018 01:18 PM V1-PT DECLINES REF TO TOBACCO CESS PRGM [facility] Apr 21, 2018 01:18 PM V1-PT DECLINES TOB ACCO CESSATION MEDS [facility] Apr 21, 2018 01:18 PM V1-PT THINKING ABO UT QUIT TOBACCO USE [facility] Oct 18, 2017 02:19 PM V1-PT NOT INTEREST ED IN QUIT TOBACCO USE [facility] Oct 04, 2017 01:55 PM CURRENT SMOKER .5 packs a day [facility] Advance Directives: All historical and current Section Date Range: From patient's date of to the date document was created. This section includes ALL of a patient's completed or amended [place] Advance and Rescinded Directives. The entries below indicate that a directive exists for the patient, but an actual copy is not included with this document. The data comes from all [facility]. Date Advance Directives Provider Source Feb 13, 2003 ADVANCE DIRECTIVE KAT OVIEDO [facility] DAMIAN HUGHES Radiology Reports: +/- 30 days [...] the Encounter. The data comes from all [facility]. Date/Time Radiology Report Provider Source Aug 08, 2024 11:06 AM KNEE 3 VIEWS (RIGHT): ANDRZEJ WILKERSON [id number] -1955 M Exm Date: AUG 08, 2024@11:06 Req Phys: PARESH,ALEXANDR ESTELLA Pat Loc: CWM/NO/PACT 5 (Req'g Loc) Img Loc: [facility] Service: [place] [address] (Case [id number] COMPLETE) KNEE 3 VIEWS (RIGHT) (RAD Detailed) CPT:77979 Reason for Study: Right knee instability Clinical 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 Report Status: Verified Date Reported: AUG 08, 2024 Date Verified: AUG 08, 2024 Outside [employer] Salesman E-Sig:/ES/CLEVELAND REEVES JR Report: Study: AP weight-bearing [...] Primary Interpreting Staff: CLEVELAND REEVES JR, Radiologist (Outside Parts Salesman) /CLEVELAND HERNANDEZ JR [facility] Aug 08, 2024 09:23 AM DUPLEX SCAN: EXTREMITY VEINS, UNILATERAL: ANDRZEJ WILKERSON [id number] -1955 M Exm Date: AUG 08, 2024@09:23 Req Phys: PARESH,ALEXANDR ESTELLA Pat Loc: CWM/NO/PACT 5 (Req'g Loc) Img Loc: ULTRASOUND Service: [place] [address] (Case [id number] COMPLETE) DUPLEX SCAN: EXTREMITY VEINS, UNI(US Detailed) CPT:64069 Proc Modifiers : RIGHT Reason for Study: Right lateral upper leg pain and right lower leg pain Clinical History: no palpable cord (+) edema h/o DVT Report Status: Verified Date Reported: AUG 08, 2024 Date Verified: AUG 08, 2024 [employer] Salesman E-Sig:/ES/CLEVELAND REEVES JR Report: Study: Right lower [...] Primary Interpreting Staff: CLEVELAND REEVES JR, Radiologist (Outside Parts Salesman) /CLEVELAND HERNANDZE JR [facility] Jul 25, 2024 12:24 PM ULTRASOUND NECK (THYROID,HEAD,SOFT TISSUE): ANDRZEJ WILKERSON [id number] -1955 M Exm Date: JUL 25, 2024@12:24 Req Phys: ALEXANDR YODER Pat Loc: CWM/NO/PACT 5 (Req'g Loc) Img Loc: ULTRASOUND Service: [place] [address] (Case [id number] COMPLETE) ULTRASOUND NECK (THYROID,HEAD,SOF(US Detailed) CPT:93549 Reason for Study: Right axillary tenderness Clinical History: no nodules palpated but very ttp r/o reactive lymphadenopathy Report Status: Verified Date Reported: JUL 25, 2024 Date Verified: JUL 25, 2024 Outside [employer] Salesman E-Sig:/ES/CLEVELAND REEVES JR Report: Study: Right axillary [...] Primary Interpreting Staff: CLEVELAND REEVES JR, Radiologist (Outside Parts Salesman) /CLEVELAND HERNANDEZ JR [facility] Encounter Notes: All associated encounter notes This section contains the clinical notes associated to the Encounter. Date/Time Encounter Note(s) Provider Source Jul 25, 2024 01:09 PM PSYCHOLOGY NOTE: LOCAL TITLE: PSYCHOLOGY NOTE STANDARD TITLE: PSYCHOLOGY NOTE DATE OF NOTE: JUL 25, 2024@13:09 ENTRY DATE: JUL 25, 2024@13:09:32 AUTHOR: BRIA LOPEZ COSIGNER: URGENCY: STATUS: COMPLETED Date of session: Jul Duration of session: 30 Diagnosis: Depression Presenting Problem ([place] report): Olman said I'm doing good so we're stretching it out to [facility]. 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 Course of Session: Car is working well, and his finances are satable. Activities somewhat limited by medical conditions. May need Carpal tunnel surgery, among other things. Specific mental health/clinical interventions: Supportive meeting Mental Status/Clinical Impression: 1. Appearance (grooming, attire, apparent age) within normal limits: delusions): Pats his belly, notes none of his jackets can be zipped. 2. Thought content was organized and goal directed: Yes 3. Speech was coherent and unimpaired: Yes 4. Affect was appropriate and unremarkable: Yes 5. Demeanor was calm, with no signs of agitation or restlessness: Yes 6. Problems with sleep or appetite reported: No 7. Psychosis (hallucinations or Delusions: No Date of next planned contact: 08/29 /herlinda/ BRIA LOPEZ, PhD Clinical Psychologist Signed: 07/25/2024 13:13 BRIA LOPEZ [facility]
--- OUTSIDE RECORDS SUMMARY | 2024-08-18 13:14 | XMS_ITS ---
Author Name [facility] [place] Organization [facility] [place] [place] Address [address] [place] [address] Care Team Providers Care Clutch Rebuilder Name Role Phone ALEXANDR YODER Primary Care [...] (WNR) MEDICARE ADVANTAGE HUMAN A INSUR ANCE [facility] Mar 23, 2023 [id number] [phone] Ezekiel WILKERSON PATIENT Selected Encounter This section includes the information on record at [place] for the Encounter. Date/Time Encounter Type Encounter Description Reason Provider Source Aug 08, 2024 08:30 AM OFFICE O/P EST MOD 30 MIN PRIMARY CARE/MEDICINE ICD-10-CM M79.604 Pain in right leg PARESHALEXANDR LOPEZ E Encounter Template Text not used by [place] Assessments - Encounter Diagnoses This section includes the primary and secondary diagnoses documented for the Encounter. Date/Time Primary/Secondary Diagnosis Diagnosis Name Provider Source Aug 08, 2024 10:52 AM PRIMARY Pain in right leg ALEXANDR YODER [facility] [place] [facility] Aug 08, 2024 10:52 AM SECONDARY Abnormal weight gain ALEXANDR YODER [facility] [place] Aug 08, 2024 10:52 AM SECONDARY Chronic obstructive pulmonary disease, unspecified [facility] Aug 08, 2024 10:52 AM SECONDARY Pain in right knee [facility]ANDR [facility]ODER [facility] Plan of Treatment: Future Appointments (+ 6 months) and Future Tests (+/- 45 days) The Plan of Treatment section includes future care activities for the patient from all [place] [facility] This section includes future appointments and future orders which are active, pending or scheduled. Future Appointments This section includes appointments that were scheduled to occur 6 months from the date of the Encounter, up to a maximum of 20 appointments. The data comes from all [facility]. Appointment Date/Time Appointment Type Appointme nt Facility Name Aug 21, 2024 02:30 PM AMBULAT[facility] - [facility] Aug 22, 2024 10:00 AM AMBULATORY - MEDICINE [facility] [place] [facility] Aug 29, 2024 11:00 AM [facility] [place] Aug 29, 2024 11:30 AM [facility] [place] Sep 14, 2024 11:00 AM AMBULATORY - REHAB MEDICIN E [facility] [place] [facility] Oct 23, 2024 02:30 PM AMBULATORY - MEDICINE [facility] [place] [facility] Nov 01, 2024 01:30 PM AMBULATORY - MEDICINE CO [facility] [place] Nov 28, 2024 03:00 PM AMBULATORY - MEDICINE [facility] Active, Pending, and Scheduled Orders [...] comes from all [facility]. Test Date/Time Test Type Test Details Facility Name Jul 27, 2024 12:18 PM Consult Order SURGERY/CW M OUTPT Cons Lead C Developer's Choice [facility] Jul 31, 2024 02:19 PM Consult Order PHYSICAL T HERAPY/[facility] OUTPT Cons Lead C Developer's Choice [facility] Lab Results: +/- 30 days of the encounter This section includes the Chemistry and Hematology Lab Results on record with [place] for the patient. Radiology Reports and Pathology Reports are provided separately, in subsequent sections. Lab Results This section contains the Chemistry/Hematology Results that were resulted 30 days before or 30 daysafter the date of the Encounter. Date/Time Source Result Type Result - Unit Interpretation Reference Range Comment Aug 08, 2024 10:07 AM [facility] BNP (Natriuretic Peptide Brain) Specimen Type: PLASMA No comment entered. Ordering Provider: ALEXANDR YODER Report Released Date/Time: Aug 08, 2024 08:51 AM Reporting Lab: [address] [address] Performing Lab: [address] [address] BNP (Natriuretic Peptide Brain) 20 pg/mL 10-100 Aug 08, 2024 10:07 AM [facility] HEMOGLOBIN A1C PANEL Specimen Type: BLOOD [...] Aug 08, 2024 08:51 AM Reporting Lab: [address] [address] Performing Lab: [address] [address] HEMOGLOBIN A1C 6.0 H 4.0-5.6 Aug 08, 2024 10:07 AM [facility] LIPID PANEL FASTING Specimen Type: SERUM No comment entered. Ordering Provider: ALEXANDR YODER Report Released Date/Time: Aug 08, 2024 08:51 AM Reporting Lab: [facility] [address] [facility] [facility] [address] Performing Lab: [facility] [address] [facility] [address] CHOLESTEROL 122 mg/dL TRIGLYCERIDE 117 mg/dL 0-150 LDL calculated 70 mg/dL 0-129 CHOL/HDL 4.2 HDL CHOLESTEROL 29 mg/dL L 40-60 Aug 08, 2024 10:07 AM [facility] TSH Specimen Type: SERUM No comment entered. Ordering Provider: ALEXANDR YODER Report Released Date/Time: Aug 08, 2024 08:51 AM Reporting Lab: [facility] [address] [facility] [facility] [address] Performing Lab: [facility] [address] TSH 1.43 u[IU]/mL 0.35-5.00 Aug 08, 2024 10:07 AM [facility] LIVER FUNCTION Specimen Type: SERUM No comment entered. Ordering Provider: ALEXANDR YODER Report Released Date/Time: Aug 08, 2024 08:51 AM Reporting Lab: [facility] [address] Performing Lab: [facility] [address] PROTEIN,TOTAL 6.6 g/dL 6.0-8.3 ALBUMIN 3.7 g/dL 3.5-5.0 ALKALINE PHOSPHATASE 96 U/L 40-150 AST 20 U/L 5-34 ALT 28 U/L BILIRUBIN, TOTAL 0.5 mg/dL 0.2-1.2 Aug 08, 2024 10:07 AM [facility] BASIC METABOLIC PANEL (non-fasting) Specimen Type: SERUM No comment entered. Ordering Provider: ALEXANDR YODER Report Released Date/Time: Aug 08, 2024 08:51 AM Reporting Lab: [facility] [address] [address] Performing Lab: [facility]ENTER[facility] [address] UREA NITROGEN 19 mg/dL 7-25 GLUCOSE 102 mg/dL H 65-100 SODIUM 139 mmol/L 135-145 POTASSIUM 4.3 mmol/L 3.5-5.0 CHLORIDE 107 mmol/L 100-110 CO2 23 meq/L 20-30 CREATININE, Serum 1.51 mg/dL H 0.50-1.40 eGFR(CKD-EPI 2020) 50 mL/min L >60 Aug 08, 2024 10:07 AM [facility] CBC AND DIFF (AUTO) Specimen Type: BLOOD No comment entered. Ordering Provider: ALEXANDR YODER Report Released Date/Time: Aug 08, 2024 08:51 AM Reporting Lab: [facility] [address] [facility] [address] Performing Lab: [facility] [address] [facility] [facility] [address] WBC 6.37 10*3/uL 4.50-11.00 RBC 4.95 10*6/uL [...] Pain Height Weight Body Mass Index Source Aug 08, 2024 08:44 AM 84 136/85 19 94 [facility] [place] Social History: Smoking Status (Most [...] took place. Date/Time Current Smoking Status Comment [facility] Jul 04, 2024 11:00 AM VA-TOBACCO FORMER USER [facility] Tobacco Use History This section includes a history of the smoking, or tobacco-related health factors, that were collected on or before the date of the Encounter. The data comes from the [place] facility where the Encounter took place. Date/Time Smoking Status/Tobac co Use Comment Facility Jul 04, 2024 11:00 AM VA-TOBACCO QUIT 5 TO < 15 YRS [facility] [place] [facility] Apr 07, 2023 01:30 PM VA-TOBACCO FORMER USER [facility] [place] [facility] Apr 07, 2023 01:30 PM VA-TOBACCO QUIT 5 TO < 15 YRS [facility] [place] [facility] May 07, 2022 09:30 AM VA-TOBACCO FORMER USER [facility] [place] [facility] May 07, 2022 09:30 AM VA-TOBACCO QUIT 1 TO < 5 YRS [facility] [place] [facility] May 15, 2021 08:45 AM VA-TOBACCO FORMER USER [facility] [place] [facility] May 15, 2021 08:45 AM VA-TOBACCO QUIT 1 TO < 5 YRS [facility] [place] [facility] Jun 04, 2020 10:30 AM VA-TOBACCO FORMER USER [facility] [place] [facility] Jun 04, 2020 10:30 AM VA-TOBACCO QUIT < 1 YEAR [facility] May 23, 2019 09:36 AM VA-TOBACCO DOESNT USE WI 30 MIN WAKEUP [facility] May 23, 2019 09:36 AM VA-TOBACCO USE 30 YEARS OR MORE [facility] May 23, 2019 09:36 AM VA-TOBACCO USE ADVICE [facility] May 23, 2019 09:36 AM VA-TOBACCO USE 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 [facility] May 23, 2019 09:36 AM VA-TOBACCO USE MED NO [facility] May 23, 2019 09:36 AM VA-TOBACCO USER EVERY DAY [facility] Apr 21, 2018 01:18 PM CURRENT SMOKER 1/2 pk a week [facility] Apr 21, 2018 01:18 PM V1-PT DECLINES REF TO TOBACCO CESS PRGM [facility] Apr 21, 2018 01:18 PM V1-PT DECLINES TOB ACCO CESSATION MEDS [facility] Apr 21, 2018 01:18 PM V1-PT THINKING ABO UT QUIT TOBACCO USE [facility] Oct 18, 2017 02:19 PM V1-PT NOT INTEREST ED IN QUIT TOBACCO USE [facility] Oct 04, 2017 01:55 PM CURRENT SMOKER .5 packs a day [facility] Advance Directives: All historical and [...] Feb 13, 2003 ADVANCE DIRECTIVE [facility] Radiology Reports: +/- 30 days [...] the Encounter. The data comes from all [place] treatment facilities. Date/Time Radiology Report Provider Source Aug 08, 2024 11:06 AM KNEE 3 VIEWS (RIGHT): ANDRZEJ WILKERSON [id number] -1955 M Exm Date: AUG 08, 2024@11:06 Req Phys: ALEXANDR YODER Pat Loc: CWM/NO/PACT 5 (Req'g Loc) Img Loc: [facility] Service: [place] [address] (Case [id number] COMPLETE) KNEE 3 VIEWS (RIGHT) (RAD Detailed) CPT:60394 Reason for Study: Right knee instability Clinical 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 Report Status: Verified Date Reported: AUG 08, 2024 Date Verified: AUG 08, 2024 Mold Cooler E-Sig:/ES/CLEVELAND REEVES JR Report: Study: AP weight-bearing [...] Primary Interpreting Staff: CLEVELAND REEVES JR, Radiologist (Mold Cooler) /CLEVELAND HERNANDEZ JR [facility] Aug 08, 2024 09:23 AM DUPLEX SCAN: EXTREMITY VEINS, UNILATERAL: ANDRZEJ WILKERSONY [id number] -1955 M Exm Date: AUG 08, 2024@09:23 Req Phys: ALEXANDR YODER Pat Loc: CWM/NO/PACT 5 (Req'g Loc) Img Loc: ULTRASOUND Service: [place] [address] (Case [id number] COMPLETE) DUPLEX SCAN: EXTREMITY VEINS, UNI(US Detailed) CPT:61516 Proc Modifiers : RIGHT Reason for Study: Right lateral upper leg pain and right lower leg pain Clinical History: no palpable cord (+) edema h/o DVT Report Status: Verified Date Reported: AUG 08, 2024 Date Verified: AUG 08, 2024 Mold Cooler E-Sig:/ES/CLEVELAND REEVES JR Report: Study: Right lower [...] Primary Interpreting Staff: CLEVELAND REEVES JR, Radiologist (Mold Cooler) /CLEVELAND HERNANDEZ JR [facility] Jul 25, 2024 12:24 PM ULTRASOUND NECK (THYROID,HEAD,SOFT TISSUE): ANDRZEJ WILKERSON [id number] -1955 M Exm Date: JUL 25, 2024@12:24 Req Phys: ALEXANDR YODER Pat Loc: CWM/NO/PACT 5 (Req'g Loc) Img Loc: ULTRASOUND Service: [place] [address] (Case [id number] COMPLETE) ULTRASOUND NECK (THYROID,HEAD,SOF(US Detailed) CPT:59237 Reason for Study: Right axillary tenderness Clinical History: no nodules palpated but very ttp r/o reactive lymphadenopathy Report Status: Verified Date Reported: JUL 25, 2024 Date Verified: JUL 25, 2024 Mold Cooler E-Sig:/ES/CLEVELAND REEVES JR Report: Study: Right axillary [...] Primary Interpreting Staff: CLEVELAND REEVES JR, Radiologist (Mold Cooler) /CLEVELAND HERNANDEZ JR [facility] Encounter Notes: All associated encounter notes This section contains the clinical notes associated to the Encounter. Date/Time Encounter Note(s) Provider Source Aug 08, 2024 08:53 AM PRIMARY CARE NURSE PRACTITIONER OUTPATIENT NOTE: LOCAL TITLE: NURSE PRACTITIONER OUTPATIENT NOTE STANDARD TITLE: PRIMARY CARE NURSE PRACTITIONER OUTPATIENT NOTE DATE OF NOTE: AUG 08, 2024@08:53 ENTRY DATE: AUG 08, 2024@08:53:28 AUTHOR: ALEXANDR YODER EXP COSIGNER: URGENCY: STATUS: COMPLETED NURSE PRACTITIONER OUTPATIENT NOTE Has ADDENDA Pt is a 69 who comes in for follow up of medical problems as noted below. HPI: Right lateral thigh pain that started about 1 week ago, feels like a burning and cannot sleep on that side denies redness rash linear line or shingles like rash, he denies swelling or pain down leg, he is not sedentary and denies recent hospitalization. He has h/o DVT in upper arm in past He denies chest pain or palpitations, He gets short of breath but also has COPD He has PT appt for this but not until September 14, over last few days pain is worse in same right lateral leg traveling down to lower leg, he denies falls or trauma. Had Knee replacement about 7 years no knee pain other than posterior pain, 8mm single pulmonary nodule follow with [facility]. He has known COPD and is on Tiotropium, Wixela and PRN albuterol Nebs or inhaler, he feels well controlled but also has about 20 lb weight gain from Nov to now, he has lower extremity edema bilaterally that is hie baseline, has large abdomen very distended also his baseline, h/o fatty liver He has repeat CT scan next week and sees Pulm again today on 08/08 he sees Vee Felder PMH: Active problems - Computerized Problem List is the source for the followin. 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 Colonoscopy normal [facility] 10/2021-- Repeat colonoscopy for screening purposes on 10/2031 4. Degenerative disc disease moderate to severe lumbar DDD on xray 08/2022 5. Depression 6. Sleep apnea 7. Supraventricular tachycardia 05/13/21 [facility] Successful Ablation 8. HTN - Hypertension ([facility] [id number]) 9. Anxiety disorder 10. H/O: gastric ulcer reports approximately 15 years ago. 11. Steatosis of liver 05/2019 - Liver labs - wnl 12. Partial tear, knee, anterior cruciate ligament s/p fall - right knee trauma ( seen [facility]/ 05/23/19 06/07/19 - MRI - [facility] - anterior Cruciate ligament tear Orthopedical surgical consult - 13. Chronic kidney disease stage 2 GFR 54 14. Ocular rosacea 15. Radioactive iodine-induced hypothyroidism MED:LEVOTHYROXINE NA (SYNTHROID) 0.15MG 16. Obesity 17. History of surgery Mastoid - left ear - in [facility] cholecystectomy - [place] right knee ? arthroscopy ( has scar) - surgery childhood proptosis left eye requiring surgical intervention in 2009 18. Chronic obstructive lung disease MED: ALBUTEROL 100/IPRATRO, ALBUTEROL 90MCG Follows with [facility] 19. Obesity 20. H/O: Deep vein [...] WITH A FULL GLASS OF WATER 13) LIDOCAINE 5% PATCH APPLY 1 PATCH TOPICALLY EVERY 12 HOURS ACTIVE NEEDED (LEAVE PATCH ON FOR 12 HOURS, THEN REMOVE PATCH) Indication: FOR NERVE PAIN 14) OMEPRAZOLE 20MG EC CAP TAKE TWO CAPSULES BY MOUTH EVERY ACTIVE MORNING 30 MINUTES BEFORE BREAKFAST Indication: FOR GASTROESOPHAGEAL REFLUX DISEASE 15) TIOTROPIUM 2.5MCG/ACTUAT 60D ORAL INHL INHALE 2 PUFFS BY ACTIVE MOUTH ONCE DAILY Active Non-VA Medications Status 1) Non-VA OTHER CAP/TAB BY MOUTH ACTIVE Indication: UNKNOWN 16 Total Medications Allergies: BEE STINGS, PENICILLIN, DOXYCYCLINE VITAL SIGNS: 98.3 F [36.8 C] (07/31/2024 14:03) 84 (08/08/2024 08:44) 19 (08/08/2024 08:44) 136/85 (08/08/2024 08:44) 2 (07/31/2024 14:03) 65 in [165.1 cm] (07/26/2023 14:01) 245 lb [111.13 kg] (07/04/2024 11:06) BMI: 40.9 ROS General: no fever, no unexplained weight loss or gain CV: denies CP, palpitations Lung: denies Dyspnea or wheezing has chronic cough that is baseline no better or worse Ext: trace edema bilateral lower extremities Psych: denies SI Neuro: denies dizziness, falls, PILLAI PHYSI BEATRIS EXAM GENERAL: well appearing in NAD, speaking in clear sentences. SKIN: Clean, dry intact no rashes , lesions or nodules observed. RESP: CTAB, no wheezing or Rales. Cards: S1 S2 RRR, No m/r/g no JVD, trace bilateral Pedal Edema GI: Firm obese abdomen, distended non TTP Musculo: FROM bilateral knees (+) pain in posterior right knee and right lateral thigh no calf tenderness with squeezing, Distal Pulses palpable no palpable cord in right thigh or lower right leg NEURO CN II-XII grossly intact, gait antalgic from pain in right leg MENTAL A&Ox3 Appropriate, Pleasant, Cooperative LAB RESULTS LAST 1440 HRS - NONE FOUND Future Clinic Visits 08/21/2024 14:30 CWM/NO/OCCUPATIONAL THERA 08/22/2024 10:00 CWM/NO/GS 08/29/2024 11:00 CWM/NO/MHC/COOK 08/29/2024 11:30 CWM/NO/MHC/CLP2 09/14/2024 11:00 CWM/NO/PHYSICAL THERAPY B 10/02/2024 14:00 CWM/NO/PODIATRY/NAIL 11/01/2024 13:30 CWM/NO/PACT 5 11/28/2024 15:00 CWM/NO/OTOLARYNGOLOGY ASSESSMENT AND PLAN: 1)Leg pain Doppler obtained: neg DVT in femoral, superficial femoral, and popliteal veins. The visualized calf veins are patent and normal. No popliteal cyst is identified. 2) weight gain -BP controlled -gained about 20lbs last month -Lungs are clear and no resp distress no JVD -Pedal edema is baseline for him no better or worse -check BNP -Check LFTs consider liver labs and US if needed given how large abdomen is -Check All other labs CBC with Diff, BNP basic metabolic panel, LFTs TSH 3) COPD -also with 8mm nodule, repeat CT scan done by [place] [facility] -Cont. Wixela and tiotropium and PRN albuterol -has appt later today with Vee ANGELES 3) Knee pain Xray obtained PT ordered Consider ortho Return to clinic to see me in 1 month RTC sooner if needed. Clinical Reminders Lipid Screening: Lipid profile ordered at this encounter. Medication Reconciliation: Outpatient: Has the patient been [...] whether with a VA or non-VA provider. /JR Ojeda Nurse Practitioner Signed: 08/08/2024 10:51 08/10/2024 ADDENDUM STATUS: COMPLETED Comparison: Right knee radiograph from December 30, [...] knee. Impression: No acute bony abnormality identified. called vetera and notify him about xray and labs /JR Ojeda Nurse Practitioner Signed: 08/10/2024 13:13 08/10/2024 ADDENDUM STATUS: COMPLETED rechecked Hgb A1C in October when he returns /JR Ojeda Nurse Practitioner Signed: 08/10/2024 13:15 ALEXANDR YODER [facility]
== END 2024-08-18 13:27 | disposition home or self-care (01) ==
PROVIDERS: PCP Nurse Practitioner Family; Visit Provider Nurse Practitioner Family
DX: J44.9 Chronic obstructive pulmonary disease, unspecified (principal); Z87.891 Personal history of nicotine dependence; R05.9 Cough, unspecified; R06.09 Other forms of dyspnea
CPT/HCPCS: 99214

== ENCOUNTER → 2024-08-18 13:02 | Outpatient (BNVA) | payer OTHER, SELFPAY | PROVIDERS: PCP Nurse Practitioner Family; Visit Provider Nurse Practitioner Family | DX: J44.9 Chronic obstructive pulmonary disease, unspecified (principal); G47.33 Obstructive sleep apnea (adult) (pediatric); R06.09 Other forms of dyspnea; Z99.89 Dependence on other enabling machines and devices; Z87.891 Personal history of nicotine dependence | CPT/HCPCS: 99212 ==

== ENCOUNTER → 2024-09-12 12:50 | Outpatient (BNVA) | payer OTHER, SELFPAY | PROVIDERS: PCP Nurse Practitioner Family; Visit Provider Nurse Practitioner Family | DX: J44.9 Chronic obstructive pulmonary disease, unspecified (principal); G47.33 Obstructive sleep apnea (adult) (pediatric); I10 Essential (primary) hypertension; R06.09 Other forms of dyspnea; Z87.891 Personal history of nicotine dependence; Z99.89 Dependence on other enabling machines and devices | CPT/HCPCS: 99212 ==

== ENCOUNTER 2024-11-10 13:39 | Outpatient (AMB) | payer OTHER, SELFPAY ==
[2024-11-10 13:46] VITALS: BP 136/80; PULSE 91; O2SAT 94; BMI 41.5
--- NOTE | 2024-11-10 13:46 | MHC.OFFVIS ---
Vital Signs 11/10/24 13:46 Height 5 ft 10 in Weight 289 lb BMI 41.5 BP 136/80 Position Sitting Pulse 91 Pulse Source Pulse Oximeter Pulse Oximetry (%) 94 Oxygen Delivery Method Room Air Intake Visit Reasons: COPD Electrocardiogram Technician Required: No Lead Developer: Lead Developer offered & declined Accompanied by: Self / Same As Patient Allergies doxycycline Allergy (Severe, Verified 11/10/24 13:50) Rash Penicillins Allergy (Severe, Verified 11/10/24 13:50) rash bee stings Allergy (Severe, Uncoded 11/10/24 13:50) Anaphylaxis Medication List - Last Reconciled 11/10/24 by Nuvia Hart LPN albuterol sulfate 0.63 mg inhalation Q6H albuterol sulfate 90 mcg/actuation 2 puffs inhalation Q4-6H PRN amlodipine 10 mg PO DAILY aspirin 325 mg PO DAILY budesonide-formoterol 160-4.5 mcg/actuation (Symbicort) 2 puffs inhalation Q12H buspirone 20 mg PO BID cetirizine (All Day Allergy (cetirizine)) 10 mg PO DAILY PRN elderberry fruit mg PO DAILY ipratropium-albuterol 0.5 mg-3 mg(2.5 mg base)/3 mL 3 mL inhalation BID 30 days levothyroxine 150 mcg PO DAILY omeprazole 20 mg PO DAILY tiotropium bromide 2.5 mcg/actuation (Spiriva Respimat) 2 puffs inhalation DAILY HPI HPI COPD: Details: Jim is a pleasant 69 year old male, former smoker with 50 pack year history, quit 4-5 years ago, with underlying COPD, PARKER on CPAP, HTN, SVT s/p ablation 2020, and h/o provoked DVT on ASA. At the last visit he was switched to Symbicort in addition to Spiriva DuoNeb and albuterol MDI. He continues to report dyspnea on exertion which he attributes to weight as well as wheezing, however improved since switching medications. He also has had changes to medications through cardiology now on Losartan-HCTZ in place of Amlodipine which may have been contributing to BLE edema as well as started using compression stockings with good effect. He continues to struggle with weight despite diet changes. He denies any visits to urgent care or hospitalizations related to respiratory distress since the last visit. [facility] Social History Patient Tobacco Use Status: Former Tobacco user Tobacco use type: Cigarette Cigarette Packs Per Day: 1 Years Smoked: 50 quit 2019 Review of Systems Const Denies chills, Denies excessive sweating, Denies fever(s), Denies headache(s) and Denies night sweats Eyes Denies dry eyes, Denies irritation and Denies itchy eyes ENT Reports Normal hearing present, Denies headache(s), Denies nasal congestion, Denies nasal discharge, Denies post nasal drip and Denies sore throat Card Denies chest pain, Denies chest pain at rest, Denies chest pain with activity, Denies claudication, Reports leg edema, Reports dyspnea on exertion, Reports orthopnea and Denies paroxysmal nocturnal dyspnea Resp Denies hemoptysis, Denies excessive phlegm production, Reports dyspnea on exertion, Denies stridor and Reports wheezing Musc Denies myalgias Neuro Reports Normal hearing present and Denies headache(s) Endo Denies excessive sweating Marcio/Lymph Denies lymphadenopathy Aller/Immun Denies itchy eyes, Denies seasonal rhinorrhea and Reports wheezing Physical Exam Vital Signs: Last Vital Signs Pulse 91 11/10/24 13:46 BP 136/80 11/10/24 13:46 Pulse Ox 94 11/10/24 13:46 Oxygen Delivery Method Room Air 11/10/24 13:46 BMI result Body Mass Index 41.5 Const General: cooperative, no acute distress, well developed and alert Nutritional Appearance: obese Orientation/consciousness: patient oriented x3 Limitations: no limitations HEENT Head: Yes normal to inspection, Yes normocephalic and Yes atraumatic Ears: hearing grossly normal bilaterally and external ears normal Eyes General: appearance normal, both eyes and all related structures Eyelids: Yes eyelids normal Sclerae: sclerae normal EOM: EOMs intact bilaterally Neck Neck: Yes normal visual inspection and Yes no lymphadenopathy Lymphatic: no lymphadenopathy noted Chest Chest palpation & inspection: normal inspection of the chest Resp Effort & Inspection: normal respiratory effort, able to speak in complete sentences, no audible wheezes, no cough, no stridor, not tachypneic, no tripod positioning and no use of accessory muscles Auscultation: clear to auscultation bilaterally Cardio Jugular venous distension: no JVD Rate: regular rate Rhythm: regular rhythm Skin Other: warm, dry General skin exam: no rashes or lesions noted Neuro General: patient oriented x3 Cranial nerves: Yes Normal hearing present Cognition (Neuro): normal cognition Gait exam (Neuro): Normal gait present Extrem Other: 2-3+ pitting edema BLE Psych Appearance: grossly normal and well kempt Speech and movement: Normal speech and movement present and Clear speech present Affect: normal affect Attitude: cooperative Thought process: Normal thought process present Thought content: Normal thought content present Insight: Good insight present (Psych) Judgement: Good judgement present (Psych) Assessment & Plan Assessment & Plan (1) COPD (chronic obstructive pulmonary disease): Code(s): J44.9 - Chronic obstructive pulmonary disease, unspecified Category: Medical (2) Personal history of tobacco use: Code(s): Z87.891 - Personal history of nicotine dependence Category: Social Hx (3) Dyspnea on minimal exertion: Code(s): R06.09 - Other forms of dyspnea Category: Medical Plan At this time he reports moderate control of respiratory symptoms on current regimen, advised to continue. Prior chest CT noted 8mm LLL nodule which has resolved, will repeat in one year to assess stability, to be scheduled 06/2025. All questions were answered and patient is in agreement of plan. Will follow up in 2-3 months or sooner if needed. Coding Level of Care Code Est Pt Level 4 (83954) Diagnoses COPD (chronic obstructive pulmonary disease) J44.9 Personal history of tobacco use Z87.891 Dyspnea on minimal exertion R06.09
== END 2024-11-10 14:28 | disposition home or self-care (01) ==
LOC: HO.HPSW 13:40
PROVIDERS: PCP Nurse Practitioner Family; Visit Provider Nurse Practitioner Family
DX: J44.9 Chronic obstructive pulmonary disease, unspecified (principal); Z87.891 Personal history of nicotine dependence; R06.09 Other forms of dyspnea
CPT/HCPCS: 99214

== ENCOUNTER → 2024-11-10 13:39 | Outpatient (BNVA) | payer OTHER, SELFPAY | PROVIDERS: PCP Nurse Practitioner Family; Visit Provider Nurse Practitioner Family | DX: J44.9 Chronic obstructive pulmonary disease, unspecified (principal); R06.09 Other forms of dyspnea; Z87.891 Personal history of nicotine dependence | CPT/HCPCS: 99212 ==

== ENCOUNTER 2025-02-20 13:51 | Outpatient (AMB) | payer OTHER, SELFPAY ==
[2025-02-20 14:04] VITALS: BP 158/86; PULSE 77; O2SAT 92; BMI 40.8
--- NOTE | 2025-02-20 14:04 | A.OFFVIS_ITS ---
Vital Signs 02/20/25 14:04 Height 5 ft 10 in Weight 284 lb 4 oz BMI 40.8 BP 158/86 H Blood Pressure Location Rt brachial Position Sitting Pulse 77 Pulse Source Pulse Oximeter Pulse Oximetry (%) 92 Oxygen Delivery Method Room Air Intake Visit Reasons: COPD Allergies doxycycline Allergy (Severe, Verified 02/20/25 14:10) Rash Penicillins Allergy (Severe, Verified 02/20/25 14:10) rash bee stings Allergy (Severe, Uncoded 02/20/25 14:10) Anaphylaxis HPI HPI COPD: Details: Jim is a pleasant 69 year old male, former 50 pack year, quit 4-5 years ago, with underlying COPD, PARKER on CPAP, HTN, SVT s/p ablation 2020, and h/o provoked DVT on ASA. At the last visit he was switched to Symbicort in addition to DuoNeb and albuterol MDI however persisted with dyspnea. He continued with dyspnea which we had previously discussed possible cardiac contributing and benefitted from lasix. Recently patient admitted to [facility] for CHF exacerbation with significant improvement after diuresis, reporting a decrease in weight from 302 to 280 pounds, and overall improved breathing. At this time he feels his respiratory symptoms are controlled on current regimen with significantly less dyspnea with exertion. [facility] Social History Patient Tobacco Use Status: Former Tobacco user Tobacco use type: Cigarette Cigarette Packs Per Day: 1 Years Smoked: 50 quit 2019 Review of Systems Const Denies chills, Denies excessive sweating, Denies fever(s), Denies headache(s) and Denies night sweats Eyes Denies dry eyes, Denies irritation and Denies itchy eyes ENT Reports Normal hearing present, Denies headache(s), Denies nasal congestion, Denies nasal discharge, Denies post nasal drip and Denies sore throat Card Denies chest pain, Denies chest pain at rest, Denies chest pain with activity, Denies claudication, Denies leg edema, Denies orthopnea and Denies paroxysmal nocturnal dyspnea Resp Denies chest congestion, Denies cough, Denies excessive phlegm production, Denies pain on inspiration, Denies pain with cough, Denies stridor and Denies wheezing Musc Denies myalgias Neuro Reports Normal hearing present and Denies headache(s) Endo Denies excessive sweating Marcio/Lymph Denies lymphadenopathy Aller/Immun Denies itchy eyes, Denies seasonal rhinorrhea and Denies wheezing Physical Exam Vital Signs: Last Vital Signs Pulse 77 02/20/25 14:04 BP 158/86 H 02/20/25 14:04 Pulse Ox 92 02/20/25 14:04 Oxygen Delivery Method Room Air 02/20/25 14:04 BMI result Body Mass Index 40.8 Const General: cooperative, no acute distress, well developed and alert Nutritional Appearance: obese Orientation/consciousness: patient oriented x3 Limitations: no limitations HEENT Head: Yes normal to inspection, Yes normocephalic and Yes atraumatic Ears: hearing grossly normal bilaterally and external ears normal Eyes General: appearance normal, both eyes and all related structures Eyelids: Yes eyelids normal Sclerae: sclerae normal EOM: EOMs intact bilaterally Neck Neck: Yes normal visual inspection and Yes no lymphadenopathy Lymphatic: no lymphadenopathy noted Chest Chest palpation & inspection: normal inspection of the chest Resp Effort & Inspection: normal respiratory effort, able to speak in complete sentences, no audible wheezes, no cough, no stridor, not tachypneic, no tripod positioning and no use of accessory muscles Auscultation: clear to auscultation bilaterally Cardio Jugular venous distension: no JVD Rate: regular rate Rhythm: regular rhythm Skin Other: warm, dry General skin exam: no rashes or lesions noted Neuro General: patient oriented x3 Cranial nerves: Yes Normal hearing present Cognition (Neuro): normal cognition Gait exam (Neuro): Normal gait present Extrem Other: 1+ pitting BLE edema Psych Appearance: grossly normal and well kempt Speech and movement: Normal speech and movement present and Clear speech present Affect: normal affect Attitude: cooperative Thought process: Normal thought process present Thought content: Normal thought content present Insight: Good insight present (Psych) Judgement: Good judgement present (Psych) Assessment & Plan Assessment & Plan (1) COPD (chronic obstructive pulmonary disease): Code(s): J44.9 - Chronic obstructive pulmonary disease, unspecified Category: Medical (2) Personal history of tobacco use: Code(s): Z87.891 - Personal history of nicotine dependence Category: Social Hx Plan At this time he reports improved control of respiratory symptoms on current regimen, now that cardiac medications have been adjusted, advised to continue. If symptoms worsen and patient is euvolemic, will consider adding Spiriva. He has upcoming appt with Dr. Hanson to further discuss regimen. Discussed with the patient the importance of continuing the current diuretic therapy for heart failure management and the need for regular weight monitoring to assess fluid status. BP elevated today and he has been checking at home intermittently elevated, encouraged patient to discuss with cardiology. Prior chest CT noted 8mm LLL nodule which has resolved, will repeat in one year to assess stability, to be scheduled 06/2025. All questions were answered and patient is in agreement of plan. Will follow up in 2-3 months or sooner if needed. Coding Level of Care Code Est Pt Level 4 (17862) Diagnoses COPD (chronic obstructive pulmonary disease) J44.9 Personal history of tobacco use Z87.891
== END 2025-02-20 14:35 | disposition home or self-care (01) ==
LOC: HO.HPSW 13:52
PROVIDERS: PCP Nurse Practitioner Family; Visit Provider Nurse Practitioner Family
DX: J44.9 Chronic obstructive pulmonary disease, unspecified (principal); Z87.891 Personal history of nicotine dependence
CPT/HCPCS: 99214

== ENCOUNTER → 2025-02-20 13:51 | Outpatient (BNVA) | payer OTHER, SELFPAY | PROVIDERS: PCP Nurse Practitioner Family; Visit Provider Nurse Practitioner Family | DX: G47.33 Obstructive sleep apnea (adult) (pediatric) (principal); J44.9 Chronic obstructive pulmonary disease, unspecified; Z87.891 Personal history of nicotine dependence; I10 Essential (primary) hypertension; R06.09 Other forms of dyspnea | CPT/HCPCS: 99212 ==

== ENCOUNTER 2025-07-26 12:52 | Outpatient (REF) | payer OTHER, SELFPAY ==
--- NOTE | ~2025-07-26 | CT_ITS ---
EXAMINATION: CT CHEST WITHOUT CONTRAST CLINICAL INFORMATION: R91.1 - Solitary pulmonary nodule COMPARISON: 04/14/2024 TECHNIQUE: Multidetector volumetric CT imaging of the chest was done. Axial MIP volume rendering provided. Sagittal and coronal reformatted images were obtained. This CT examination was performed using dose optimization techniques as appropriate, variously including the following: *Automated exposure control *Adjustment of mA and/or kV according to patient size (this includes techniques or standardized protocols for targeted exams where dose is matched to indication/reason for exam; i.e. extremities or head) *Use of iterative reconstruction technique FINDINGS: LUNGS: Lungs are clear. There are no pulmonary nodules. MEDIASTINUM: On the prior, there is a description of a 12 mm AP window lymph node. In reality, the described lymph node is probably related to a persistent left superior vena cava. CORONARY ARTERY CALCIFICATION: Minimal PLEURA: There is no pleural effusion. No pleural mass or thickening. AXILLA: No lymphadenopathy. UPPER ABDOMEN: Low attenuation is noted throughout the liver. OSSEOUS STRUCTURES: Degenerative irregularity is noted throughout the thoracic spine, possibly related to remote Scheuermann's syndrome. CT/CT chest wo IV con IMPRESSION: No pulmonary nodules Persistent left superior vena cava. Hepatic steatosis. Fleischner guidelines were followed. Electronically signed by: Boby Cabezas MD 07/26/2025 01:30 PM EST
== END 2025-07-26 12:53 | disposition home or self-care (01) ==
LOC: HO.CT 12:52
PROVIDERS: PCP Nurse Practitioner Family; Visit Provider Nurse Practitioner Family
DX: R91.1 Solitary pulmonary nodule (principal)
CPT/HCPCS: 71250

== ENCOUNTER → 2025-07-26 12:54 | Outpatient (BNV) | payer OTHER, SELFPAY | PROVIDERS: PCP Nurse Practitioner Family; Visit Provider Radiology Diagnostic Radiology | DX: Q26.1 Persistent left superior vena cava (principal); K76.0 Fatty (change of) liver, not elsewhere classified | CPT/HCPCS: 71250 ==